=== PATIENT | male | born 1960 | race Caucasian/White ===

== ENCOUNTER 2016-06-14 20:13 | Emergency (ER) | payer OTHER, SELFPAY ==
[2016-06-14] MEDS ORDERED: SODIUM CHLORIDE 0.9% 1,000 ML IV STA ×2 (20:17→20:26)
[2016-06-14 20:18] VITALS: TEMP 101.5
--- NOTE | 2016-06-14 20:21 | ED ---
Seizure HPI - General Chief Complaint: Seizure Stated Complaint: SEIZURE Time Seen by Provider: 06/14/16 20:13 Source: patient, EMS, RN notes reviewed Mode of arrival: EMS Limitations: no limitations - History of Present Illness Initial Comments: This is a 56-year-old male with a history of alcoholism who drinks urinating amounts of alcohol daily and also states he has not drank suggested a who is reportedly had a seizure tonight for the first time. He states he remembers passing out but he does not recall any activity he was reported have a 7 minute episode of tonic-clonic activity on a carpeted floor. EMS was called he was confused she was incontinent of urine. He was repetitive with questioning. He is becoming more responsive as time goes on however. He states he's never gone through DTs before he thought was 2016 at this time. He wasn't sure with a present was at this time. He denies any street drug use hour. He has no other medical problems he states MD Complaint: seizure - Related Data Home Medications Medication Instructions Recorded Confirmed No Known Home Medications [No 06/14/16 06/14/16 Known Home Medications] Allergies Allergy/AdvReac Type Severity Reaction Status Date / Time No Known Allergies Allergy Verified 06/14/16 20:31 Review of Systems ROS Statement: Those systems with pertinent positive or pertinent negative responses have been documented in the HPI. ROS Other: All systems not noted in ROS Statement are negative. Past Medical History Past Medical History: No Reported History History of Any Multi-Drug Resistant Organisms: None Reported Additional Past Surgical History / Comment(s): Right leg fracture repair Past Psychological History: No Psychological Hx Reported Smoking Status: Current every day smoker Past Alcohol Use History: Heavy Past Drug Use History: Marijuana General Exam - General Exam Comments Initial Comments: Is a well-developed well-nourished awake alert oriented 2 male he does demonstrate a Coral Coma Scale of 14 at this time Limitations: no limitations General appearance: alert, in no apparent distress Head exam: Present: normocephalic, normal inspection, other (Of her facial abrasions seen over the right lateral orbit and face no step-off no crepitation no open wounds.) Eye exam: Present: normal appearance, PERRL, EOMI. Absent: scleral icterus, conjunctival injection, periorbital swelling ENT exam: Present: mucous membranes dry Neck exam: Present: normal inspection. Absent: tenderness, meningismus, lymphadenopathy Respiratory exam: Present: normal lung sounds bilaterally. Absent: respiratory distress, wheezes, rales, rhonchi, stridor Cardiovascular Exam: Present: normal rhythm, tachycardia, normal heart sounds. Absent: systolic murmur, diastolic murmur, rubs, gallop, clicks GI/Abdominal exam: Present: soft, normal bowel sounds. Absent: distended, tenderness, guarding, rebound, rigid Extremities exam: Present: normal inspection, full ROM, normal capillary refill. Absent: tenderness, pedal edema, joint swelling, calf tenderness Back exam: Present: normal inspection Neurological exam: Present: alert, oriented X3, CN II-XII intact Psychiatric exam: Present: normal affect, normal mood Skin exam: Present: warm, dry, intact, normal color. Absent: rash Course Vital Signs 06/14/16 06/14/16 06/14/16 20:14 20:17 22:06 Temperature 101.5 F H Pulse Rate 120 H 104 H 117 H Respiratory 18 18 16 Rate Blood Pressure 199/102 165/92 171/87 O2 Sat by Pulse 97 100 96 Oximetry Medical Decision Making - Medical Decision Making Reevaluation the patient reveals that he is awake alert oriented 3 I did a long discussion with him regarding the findings. Patient states feeling drinks 4 beers a day he's going to quit he states I did suggest she stay in hospital tonight he does not want stay in hospital he agrees except his own ability to care for himself and recent possibility for care. He will follow-up with general medicine and return when necessary I did caution him about the possibility had having a seizure and recurrence. - Lab Data Result diagrams: 06/14/16 20:20 06/14/16 20:20 Lab Results 06/14/16 06/14/16 06/14/16 Range/Units 20:20 20:20 20:20 WBC 9.7 (3.8-10.6) k/uL RBC 4.46 (4.30-5.90) m/uL Hgb 12.0 L (13.0-17.5) gm/dL Hct 36.7 L (39.0-53.0) % MCV 82.3 (80.0-100.0) fL MCH 27.0 (25.0-35.0) pg MCHC 32.8 (31.0-37.0) g/dL RDW 16.1 H (11.5-15.5) % Plt Count 234 (150-450) k/uL Neutrophils % 61 % Lymphocytes % 25 % Monocytes % 9 % Eosinophils % 0 % Basophils % 1 % Neutrophils # 5.9 (1.3-7.7) k/uL Lymphocytes # 2.4 (1.0-4.8) k/uL Monocytes # 0.8 (0-1.0) k/uL Eosinophils # 0.0 (0-0.7) k/uL Basophils # 0.1 (0-0.2) k/uL Anisocytosis Slight Sodium 133 L (137-145) mmol/L Potassium 3.9 (3.5-5.1) mmol/L Chloride 96 L (98-107) mmol/L Carbon Dioxide 21 L (22-30) mmol/L Anion Gap 16 mmol/L BUN 8 L (9-20) mg/dL Creatinine 0.67 (0.66-1.25) mg/dL Est GFR (MDRD) Af Amer >60 (>60 ml/min/1.73 sqM) Est GFR (MDRD) Non-Af >60 (>60 ml/min/1.73 sqM) Glucose 166 H (74-99) mg/dL Calcium 9.2 (8.4-10.2) mg/dL Magnesium 1.8 (1.6-2.3) mg/dL Total Bilirubin 0.5 (0.2-1.3) mg/dL AST 54 (17-59) U/L ALT 50 (21-72) U/L Alkaline Phosphatase 92 (38-126) U/L Total Creatine Kinase 125 (55-170) U/L CK-MB (CK-2) 0.6 (0.0-2.4) ng/mL CK-MB (CK-2) Rel Index 0.5 Total Protein 8.1 (6.3-8.2) g/dL Albumin 4.3 (3.5-5.0) g/dL Amylase 180 H (30-110) U/L Lipase 190 (23-300) U/L Urine Color Urine Appearance (Clear) Urine pH (5.0-8.0) Ur Specific [place] (1.001-1.035) Urine Protein (Negative) Urine Glucose (UA) (Negative) Urine Ketones (Negative) Urine Blood (Negative) Urine Nitrite (Negative) Urine Bilirubin (Negative) Urine Urobilinogen (<2.0) mg/dL Ur Leukocyte Esterase (Negative) Urine RBC (0-5) /hpf Urine WBC (0-5) /hpf Amorphous Sediment (None) /hpf Salicylates <1.0 mg/dL Urine Opiates Screen (NotDetected) Ur Oxycodone Screen (NotDetected) Urine Methadone Screen (NotDetected) Ur Propoxyphene Screen (NotDetected) Acetaminophen <10.0 ug/mL Ur Barbiturates Screen (NotDetected) U Tricyclic Antidepress (NotDetected) Ur Phencyclidine Scrn (NotDetected) Ur Amphetamines Screen (NotDetected) U Methamphetamines Scrn (NotDetected) U Benzodiazepines Scrn (NotDetected) Urine Cocaine Screen (NotDetected) U Marijuana (THC) Screen (NotDetected) Serum Alcohol <10 mg/dL 06/14/16 Range/Units 20:31 WBC (3.8-10.6) k/uL RBC (4.30-5.90) m/uL Hgb (13.0-17.5) gm/dL Hct (39.0-53.0) % MCV (80.0-100.0) fL MCH (25.0-35.0) pg MCHC (31.0-37.0) g/dL RDW (11.5-15.5) % Plt Count (150-450) k/uL Neutrophils % % Lymphocytes % % Monocytes % % Eosinophils % % Basophils % % Neutrophils # (1.3-7.7) k/uL Lymphocytes # (1.0-4.8) k/uL Monocytes # (0-1.0) k/uL Eosinophils # (0-0.7) k/uL Basophils # (0-0.2) k/uL Anisocytosis Sodium (137-145) mmol/L Potassium (3.5-5.1) mmol/L Chloride (98-107) mmol/L Carbon Dioxide (22-30) mmol/L Anion Gap mmol/L BUN (9-20) mg/dL Creatinine (0.66-1.25) mg/dL Est GFR (MDRD) Af Amer (>60 ml/min/1.73 sqM) Est GFR (MDRD) Non-Af (>60 ml/min/1.73 sqM) Glucose (74-99) mg/dL Calcium (8.4-10.2) mg/dL Magnesium (1.6-2.3) mg/dL Total Bilirubin (0.2-1.3) mg/dL AST (17-59) U/L ALT (21-72) U/L Alkaline Phosphatase (38-126) U/L Total Creatine Kinase (55-170) U/L CK-MB (CK-2) (0.0-2.4) ng/mL CK-MB (CK-2) Rel Index Total Protein (6.3-8.2) g/dL Albumin (3.5-5.0) g/dL Amylase (30-110) U/L Lipase (23-300) U/L Urine Color Light Yellow Urine Appearance Clear (Clear) Urine pH 5.0 (5.0-8.0) Ur Specific [place] 1.010 (1.001-1.035) Urine Protein 1+ H (Negative) Urine Glucose (UA) Trace H (Negative) Urine Ketones 1+ H (Negative) Urine Blood Small H (Negative) Urine Nitrite Negative (Negative) Urine Bilirubin Negative (Negative) Urine Urobilinogen <2.0 (<2.0) mg/dL Ur Leukocyte Esterase Negative (Negative) Urine RBC 2 (0-5) /hpf Urine WBC 3 (0-5) /hpf Amorphous Sediment Rare H (None) /hpf Salicylates mg/dL Urine Opiates Screen Not Detected (NotDetected) Ur Oxycodone Screen Not Detected (NotDetected) Urine Methadone Screen Not Detected (NotDetected) Ur Propoxyphene Screen Not Detected (NotDetected) Acetaminophen ug/mL Ur Barbiturates Screen Not Detected (NotDetected) U Tricyclic Antidepress Not Detected (NotDetected) Ur Phencyclidine Scrn Not Detected (NotDetected) Ur Amphetamines Screen Not Detected (NotDetected) U Methamphetamines Scrn Not Detected (NotDetected) U Benzodiazepines Scrn Not Detected (NotDetected) Urine Cocaine Screen Not Detected (NotDetected) U Marijuana (THC) Screen Detected H (NotDetected) Serum Alcohol mg/dL - EKG Data -: EKG Interpreted by Me EKG shows normal: sinus rhythm Rate: tachycardia (Sinus tachycardia with a rate of 118 CT interval 162 QRS duration 84 daily since QTC of 332/465 minimal voltage criteria for LVH no acute ST-T wave changes.) - Radiology Data Radiology results: report reviewed (I did review the imaging and reports. No acute findings), image reviewed Disposition Clinical Impression: New onset seizure Disposition: HOME SELF-CARE Condition: Good Instructions: New-Onset Seizure in Adults (ED) Referrals: None,Stated [Primary Care Provider] - 1-2 days
[2016-06-14 20:29] LABS: Anisocytosis Slight; Aty Lym Flag Slight; Basophils # (A) 0.1 k/uL (0-0.2); Basophils % (A) 1 %; CH 26.3; CHCM 32.1; Eosinophils % (A) 0 %; HCT 36.7 % (39.0-53.0); Luc # (Auto) 0.55; Luc % (Auto) 6; Lymphocytes # (A) 2.4 k/uL (1.0-4.8); Lymphocytes % (A) 25 %; MCHC 32.8 g/dL (31.0-37.0); MCV 82.3 fL (80.0-100.0); Monocytes # (A) 0.8 k/uL (0-1.0); Monocytes % (A) 9 %; Neutrophils # (A) 5.9 k/uL (1.3-7.7); Neutrophils % (A) 61 %; RBC 4.46 m/uL (4.30-5.90); RDW 16.1 % (11.5-15.5); WBC 9.7 k/uL (3.8-10.6); WBC (Perox) 9.67
[2016-06-14 20:40] LABS: ALT 50 U/L (21-72); AST 54 U/L (17-59); Acetaminophen <10.0 ug/mL; Alcohol <10 mg/dL; Alkaline Phosphatase 92 U/L (38-126); Amylase 180 U/L (30-110); Anion Gap 16 mmol/L; Blood Urea Nitrogen 8 mg/dL (9-20); Calcium 9.2 mg/dL (8.4-10.2); Carbon Dioxide 21 mmol/L (22-30); Chloride 96 mmol/L (98-107); Glucose 166 mg/dL (74-99); Magnesium 1.8 mg/dL (1.6-2.3); Non-African American GFR(MDRD) >60 (>60 ml/min/1.73 sqM); Potassium 3.9 mmol/L (3.5-5.1); Salicylate <1.0 mg/dL; Sodium 133 mmol/L (137-145); Total Bilirubin 0.5 mg/dL (0.2-1.3); Total Protein 8.1 g/dL (6.3-8.2)
[2016-06-14 20:51] LABS: Amorphous Sediment,Urine Rare /hpf; Appearance,Urine Clear (Clear); Bilirubin,Urine Negative (Negative); Glucose,Urine (UA) Trace (Negative); Ketones,Urine 1+ (Negative); Leukocyte Esterase,Urine Negative (Negative); Nitrite,Urine Negative (Negative); Particle Count 1391; Protein,Urine 1+ (Negative); RBC,Urine 2 /hpf (0-5); UA Billing (MACRO vs. MICRO) MICRO; Urobilinogen,Urine <2.0 mg/dL (<2.0); WBC,Urine 3 /hpf (0-5)
[2016-06-14 21:02] LABS: Creatine Kinase MB 0.6 ng/mL (0.0-2.4)
--- NOTE | 2016-06-14 21:09 | XR ---
EXAMINATION TYPE: XR chest 2V DATE OF EXAM: 06/14/2016 9:02 PM COMPARISON: 08/12/2011 HISTORY: Seizure TECHNIQUE: Frontal and lateral views of the chest are obtained. FINDINGS: Heart and mediastinum are normal. Lungs are clear. Costophrenic angles are clear. There ar e no hilar masses. There are chest leads. The bony thorax appears intact. IMPRESSION: No active cardiopulmonary disease. No change.
--- NOTE | 2016-06-14 21:11 | CT ---
EXAMINATION TYPE: CT brain wo con DATE OF EXAM: 06/14/2016 9:06 PM COMPARISON: 08/11/2011 HISTORY: new onset seizure CT DLP: 1108.4 mGycm Automated exposure control for dose reduction was used. FINDINGS: There is mucosal thickening in the maxillary sinuses. There is also mild mucosal thickening in the sp henoid and ethmoid sinuses. There is cerebral cortical atrophy. There is no mass effect nor midline shift. There is no sign of in tracranial hemorrhage. The calvarium is intact. IMPRESSION: Cerebral atrophy. Sinusitis. Sinusitis is worse than old CT scan. No acute intracranial abnormality.
[2016-06-14 22:07] VITALS: BP 171/87; PULSE 117; RESP 16
== END 2016-06-14 23:00 | disposition home or self-care (01) ==
LOC: EC 20:13
DX: R56.9 Unspecified convulsions (principal); S00.81XA Abrasion of other part of head, initial encounter; R00.0 Tachycardia, unspecified; R32 Unspecified urinary incontinence; R41.0 Disorientation, unspecified; F17.200 Nicotine dependence, unspecified, uncomplicated; X58.XXXA Exposure to other specified factors, initial encounter
CPT/HCPCS: 36415; 70450; 71020; 80053; 80306; 80320; 81001; 82150; 82550; 82553; 83520; 83690; 83735; 85025; 93005; 96360; 96361; 99285

== ENCOUNTER 2019-10-31 13:36 | Emergency (ER) | payer OTHER ==
[2019-10-31] MEDS ORDERED: SODIUM CHLORIDE 0.9% 1,000 ML IV STA (13:44)
[2019-10-31 13:50] VITALS: TEMP 98.1
--- NOTE | 2019-10-31 13:53 | ED ---
Seizure HPI - General Stated Complaint: Aliciaures Time Seen by Provider: 10/31/19 13:36 Source: patient, EMS, RN notes reviewed Mode of arrival: EMS - History of Present Illness Initial Comments: 59-year-old male with a history of alcoholism apparently he is a smoker but denies any history of any other medical issues including denying seizure disorder apparently is walking on his deck today when his girlfriend noted that he fell forward and has seizure for unknown amount time. Paramedics were summoned initially and he was somewhat combative and acting post -ictal with evidence of urinary incontinence upon their arrival they got there within 5 minutes of the event beginning from the 911 call. The time he arrives emergency department per paramedics she is awake alert oriented 4. The patient does deny any head neck or back pain or any other issues he states he drinks 3 or 4 beers a day. Mid to smoking cigarettes he denies any other drugs or alcohol. He denies feeling any palpitations prior to the event. MD Complaint: possible seizure - Related Data Previous Rx's Medication Instructions Recorded cloNIDine HCL [Catapres] 0.1 mg PO BID #30 tab 10/31/19 Allergies Allergy/AdvReac Type Severity Reaction Status Date / Time No Known Allergies Allergy Verified 10/31/19 14:29 Review of Systems ROS Statement: Those systems with pertinent positive or pertinent negative responses have been documented in the HPI. ROS Other: All systems not noted in ROS Statement are negative. Past Medical History Past Medical History: No Reported History History of Any Multi-Drug Resistant Organisms: None Reported Additional Past Surgical History / Comment(s): Right leg fracture repair Past Psychological History: No Psychological Hx Reported Past Alcohol Use History: Heavy Past Drug Use History: Marijuana General Exam - General Exam Comments Initial Comments: This is a well-developed well-nourished awake alert oriented times 3 male General appearance: alert, in no apparent distress Head exam: Present: atraumatic, normocephalic, normal inspection Eye exam: Present: normal appearance, PERRL, EOMI. Absent: scleral icterus, conjunctival injection, periorbital swelling ENT exam: Present: normal exam, mucous membranes moist Neck exam: Present: normal inspection, full ROM, other (No stridor JVD or bruits). Absent: tenderness, meningismus, lymphadenopathy Respiratory exam: Present: normal lung sounds bilaterally. Absent: respiratory distress, wheezes, rales, rhonchi, stridor Cardiovascular Exam: Present: regular rate, normal rhythm, normal heart sounds. Absent: systolic murmur, diastolic murmur, rubs, gallop, clicks GI/Abdominal exam: Present: soft, normal bowel sounds. Absent: distended, tenderness, guarding, rebound, rigid, bruit, pulsatile mass Extremities exam: Present: normal inspection, full ROM, normal capillary refill. Absent: tenderness, pedal edema, joint swelling, calf tenderness Back exam: Present: normal inspection Neurological exam: Present: alert, oriented X3, CN II-XII intact Psychiatric exam: Present: normal affect, normal mood Skin exam: Present: warm, dry, intact, normal color. Absent: rash Course Vital Signs 10/31/19 13:38 Temperature 98.1 F Pulse Rate 110 H Blood Pressure 199/121 O2 Sat by Pulse 97 Oximetry Medical Decision Making - Medical Decision Making Reevaluation the patient presently awake alert oriented 4 with no distress improvement in vital signs. The presentation is consistent with a seizure and postictal state by history is as resolved the patient will be discharged with follow-up with his doctor and return if needed he was counseled on drinking etc. blood pressure still somewhat elevated however he will be started on Catapres. He is a follow-up again with his doctor - Lab Data Result diagrams: 10/31/19 13:57 10/31/19 13:57 Lab Results 10/31/19 10/31/19 10/31/19 Range/Units 13:57 13:57 13:57 WBC 10.8 H (3.8-10.6) k/uL RBC 4.68 (4.30-5.90) m/uL Hgb 12.5 L (13.0-17.5) gm/dL Hct 40.9 (39.0-53.0) % MCV 87.5 (80.0-100.0) fL MCH 26.7 (25.0-35.0) pg MCHC 30.5 L (31.0-37.0) g/dL RDW 16.1 H (11.5-15.5) % Plt Count 300 (150-450) k/uL Neutrophils % 61 % Lymphocytes % 25 % Monocytes % 8 % Eosinophils % 1 % Basophils % 1 % Neutrophils # 6.6 (1.3-7.7) k/uL Lymphocytes # 2.6 (1.0-4.8) k/uL Monocytes # 0.9 (0-1.0) k/uL Eosinophils # 0.1 (0-0.7) k/uL Basophils # 0.1 (0-0.2) k/uL Anisocytosis Slight Sodium 134 L (137-145) mmol/L Potassium 4.6 (3.5-5.1) mmol/L Chloride 101 (98-107) mmol/L Carbon Dioxide 20 L (22-30) mmol/L Anion Gap 13 mmol/L BUN 11 (9-20) mg/dL Creatinine 0.70 (0.66-1.25) mg/dL Est GFR (CKD-EPI)AfAm >90 (>60 ml/min/1.73 sqM) Est GFR (CKD-EPI)NonAf >90 (>60 ml/min/1.73 sqM) Glucose 147 H (74-99) mg/dL Calcium 9.7 (8.4-10.2) mg/dL Magnesium 1.9 (1.6-2.3) mg/dL Total Bilirubin 0.6 (0.2-1.3) mg/dL AST 53 (17-59) U/L ALT 38 (4-49) U/L Alkaline Phosphatase 101 (38-126) U/L Creatine Kinase 81 (55-170) U/L Troponin I <0.012 (0.000-0.034) ng/mL Total Protein 7.8 (6.3-8.2) g/dL Albumin 4.4 (3.5-5.0) g/dL Lipase 242 (23-300) U/L TSH 6.070 H (0.465-4.680) mIU/L Urine Opiates Screen (NotDetected) Ur Oxycodone Screen (NotDetected) Urine Methadone Screen (NotDetected) Ur Propoxyphene Screen (NotDetected) Ur Barbiturates Screen (NotDetected) U Tricyclic Antidepress (NotDetected) Ur Phencyclidine Scrn (NotDetected) Ur Amphetamines Screen (NotDetected) U Methamphetamines Scrn (NotDetected) U Benzodiazepines Scrn (NotDetected) Urine Cocaine Screen (NotDetected) U Marijuana (THC) Screen (NotDetected) Serum Alcohol <10 mg/dL 10/31/19 Range/Units 13:59 WBC (3.8-10.6) k/uL RBC (4.30-5.90) m/uL Hgb (13.0-17.5) gm/dL Hct (39.0-53.0) % MCV (80.0-100.0) fL MCH (25.0-35.0) pg MCHC (31.0-37.0) g/dL RDW (11.5-15.5) % Plt Count (150-450) k/uL Neutrophils % % Lymphocytes % % Monocytes % % Eosinophils % % Basophils % % Neutrophils # (1.3-7.7) k/uL Lymphocytes # (1.0-4.8) k/uL Monocytes # (0-1.0) k/uL Eosinophils # (0-0.7) k/uL Basophils # (0-0.2) k/uL Anisocytosis Sodium (137-145) mmol/L Potassium (3.5-5.1) mmol/L Chloride (98-107) mmol/L Carbon Dioxide (22-30) mmol/L Anion Gap mmol/L BUN (9-20) mg/dL Creatinine (0.66-1.25) mg/dL Est GFR (CKD-EPI)AfAm (>60 ml/min/1.73 sqM) Est GFR (CKD-EPI)NonAf (>60 ml/min/1.73 sqM) Glucose (74-99) mg/dL Calcium (8.4-10.2) mg/dL Magnesium (1.6-2.3) mg/dL Total Bilirubin (0.2-1.3) mg/dL AST (17-59) U/L ALT (4-49) U/L Alkaline Phosphatase (38-126) U/L Creatine Kinase (55-170) U/L Troponin I (0.000-0.034) ng/mL Total Protein (6.3-8.2) g/dL Albumin (3.5-5.0) g/dL Lipase (23-300) U/L TSH (0.465-4.680) mIU/L Urine Opiates Screen Not Detected (NotDetected) Ur Oxycodone Screen Not Detected (NotDetected) Urine Methadone Screen Not Detected (NotDetected) Ur Propoxyphene Screen Not Detected (NotDetected) Ur Barbiturates Screen Not Detected (NotDetected) U Tricyclic Antidepress Not Detected (NotDetected) Ur Phencyclidine Scrn Not Detected (NotDetected) Ur Amphetamines Screen Not Detected (NotDetected) U Methamphetamines Scrn Not Detected (NotDetected) U Benzodiazepines Scrn Not Detected (NotDetected) Urine Cocaine Screen Not Detected (NotDetected) U Marijuana (THC) Screen Detected H (NotDetected) Serum Alcohol mg/dL - EKG Data -: EKG Interpreted by Me EKG Comments: EKG shows normal sinus rhythm a 99. Interval 154 QRS 122 daily since QTC 386/495 evidence a right bundle-branch block pattern - Radiology Data Radiology results: report reviewed (I did review the imaging and report no acute findings.), image reviewed Disposition Clinical Impression: New onset seizure, Hypertension, Dehydration Disposition: HOME SELF-CARE Condition: Good Instructions (If sedation given, give patient instructions): New-Onset Seizure in Adults (ED), Hypertension in the Older Adult (ED) Additional Instructions: Medication prescription sent to your preferred pharmacy Prescriptions: cloNIDine HCL [Catapres] 0.1 mg PO BID #30 tab Is patient prescribed a controlled substance at d/c from ED?: No Referrals: None,Stated [Primary Care Provider] - 1-2 days
[2019-10-31 14:07] LABS: Anisocytosis Slight; Basophils # (A) 0.1 k/uL (0-0.2); Basophils % (A) 1 %; Eosinophils # (A) 0.1 k/uL (0-0.7); Eosinophils % (A) 1 %; HCT 40.9 % (39.0-53.0); HGB 12.5 gm/dL (13.0-17.5); Lymphocytes # (A) 2.6 k/uL (1.0-4.8); Lymphocytes % (A) 25 %; MCH 26.7 pg (25.0-35.0); MCHC 30.5 g/dL (31.0-37.0); MCV 87.5 fL (80.0-100.0); Mean Platelet Volume 7.6; Monocytes # (A) 0.9 k/uL (0-1.0); Monocytes % (A) 8 %; Neutrophils # (A) 6.6 k/uL (1.3-7.7); Neutrophils % (A) 61 %; Platelet Count 300 k/uL (150-450); RBC 4.68 m/uL (4.30-5.90); RDW 16.1 % (11.5-15.5); WBC 10.8 k/uL (3.8-10.6)
[2019-10-31 14:23] LABS: ALT 38 U/L (4-49); AST 53 U/L (17-59); African American GFR (CKD) >90 (>60 ml/min/1.73 sqM); Albumin 4.4 g/dL (3.5-5.0); Alcohol <10 mg/dL; Alkaline Phosphatase 101 U/L (38-126); Anion Gap 13 mmol/L; Blood Urea Nitrogen 11 mg/dL (9-20); Calcium 9.7 mg/dL (8.4-10.2); Carbon Dioxide 20 mmol/L (22-30); Chloride 101 mmol/L (98-107); Creatine Kinase 81 U/L (55-170); Glucose 147 mg/dL (74-99); Lipase 242 U/L (23-300); Magnesium 1.9 mg/dL (1.6-2.3); Non-African American GFR(CKD) >90 (>60 ml/min/1.73 sqM); Potassium 4.6 mmol/L (3.5-5.1); Sodium 134 mmol/L (137-145); Total Bilirubin 0.6 mg/dL (0.2-1.3); Total Protein 7.8 g/dL (6.3-8.2)
--- NOTE | 2019-10-31 14:25 | CT ---
EXAMINATION TYPE: CT brain cspine wo con DATE OF EXAM: 10/31/2019 COMPARISON: CT brain 06/14/2016. CT cervical spine 08/11/2011. HISTORY: Seizure CT DLP: 1263.8 mGycm Automated exposure control for dose reduction was used. TECHNIQUE: CT scan of the head and cervical spine are performed without contrast. FINDINGS: There is no acute intracranial hemorrhage, mass effect, or midline shift identified. Vol ume loss. The ventricles and sulci are within normal limits in size. No extra-axial fluid collections . The globes are grossly symmetric. No calvarial fracture. Mastoid air cells are clear. The mucosal t hickening and chronic sinusitis changes of the left maxillary sinus. Cervical spine is visualized in its entirety from C1 through upper thoracic levels and demonstrates s atisfactory alignment without evidence of acute fracture or dislocation. There is increased cervical lordosis. Prevertebral soft tissue appears within normal limits. The C1-C2 articulation is unremark able. IMPRESSION: 1. There is no acute fracture or dislocation evident in the cervical spine. 2. No acute intracranial hemorrhage, mass effect, or midline shift is seen. 3. Mucosal thickening and chronic sinusitis changes of the left maxillary sinus.
[2019-10-31 14:28] LABS: Amphetamine Screen,Urine Not Detected (NotDetected); Barbiturate Screen,Urine Not Detected (NotDetected); Benzodiazepines Screen,Urine Not Detected (NotDetected); Cocaine Screen,Urine Not Detected (NotDetected); Methadone Screen, Urine Not Detected (NotDetected); Opiate Screen,Urine Not Detected (NotDetected); Oxycodone Screen, Urine Not Detected (NotDetected); Phencyclidine Screen,Urine Not Detected (NotDetected); Tricyclic Antidepressant,Urine Not Detected (NotDetected); Urn Cannabinoid Scrn Detected (NotDetected)
[2019-10-31 15:03] VITALS: PULSE 84
[2019-10-31] MEDS ORDERED: cloNIDine HCL 0.1 MG TAB PO STA (15:03)
--- NOTE | 2019-10-31 15:09 | ED ---
Medical Decision Making - Lab Data Result diagrams: 10/31/19 13:57 10/31/19 13:57 Lab Results 10/31/19 10/31/19 10/31/19 Range/Units 13:57 13:57 13:57 WBC 10.8 H (3.8-10.6) k/uL RBC 4.68 (4.30-5.90) m/uL Hgb 12.5 L (13.0-17.5) gm/dL Hct 40.9 (39.0-53.0) % MCV 87.5 (80.0-100.0) fL MCH 26.7 (25.0-35.0) pg MCHC 30.5 L (31.0-37.0) g/dL RDW 16.1 H (11.5-15.5) % Plt Count 300 (150-450) k/uL Neutrophils % 61 % Lymphocytes % 25 % Monocytes % 8 % Eosinophils % 1 % Basophils % 1 % Neutrophils # 6.6 (1.3-7.7) k/uL Lymphocytes # 2.6 (1.0-4.8) k/uL Monocytes # 0.9 (0-1.0) k/uL Eosinophils # 0.1 (0-0.7) k/uL Basophils # 0.1 (0-0.2) k/uL Anisocytosis Slight Sodium 134 L (137-145) mmol/L Potassium 4.6 (3.5-5.1) mmol/L Chloride 101 (98-107) mmol/L Carbon Dioxide 20 L (22-30) mmol/L Anion Gap 13 mmol/L BUN 11 (9-20) mg/dL Creatinine 0.70 (0.66-1.25) mg/dL Est GFR (CKD-EPI)AfAm >90 (>60 ml/min/1.73 sqM) Est GFR (CKD-EPI)NonAf >90 (>60 ml/min/1.73 sqM) Glucose 147 H (74-99) mg/dL Calcium 9.7 (8.4-10.2) mg/dL Magnesium 1.9 (1.6-2.3) mg/dL Total Bilirubin 0.6 (0.2-1.3) mg/dL AST 53 (17-59) U/L ALT 38 (4-49) U/L Alkaline Phosphatase 101 (38-126) U/L Creatine Kinase 81 (55-170) U/L Troponin I <0.012 (0.000-0.034) ng/mL Total Protein 7.8 (6.3-8.2) g/dL Albumin 4.4 (3.5-5.0) g/dL Lipase 242 (23-300) U/L TSH 6.070 H (0.465-4.680) mIU/L Urine Opiates Screen (NotDetected) Ur Oxycodone Screen (NotDetected) Urine Methadone Screen (NotDetected) Ur Propoxyphene Screen (NotDetected) Ur Barbiturates Screen (NotDetected) U Tricyclic Antidepress (NotDetected) Ur Phencyclidine Scrn (NotDetected) Ur Amphetamines Screen (NotDetected) U Methamphetamines Scrn (NotDetected) U Benzodiazepines Scrn (NotDetected) Urine Cocaine Screen (NotDetected) U Marijuana (THC) Screen (NotDetected) Serum Alcohol <10 mg/dL 10/31/19 Range/Units 13:59 WBC (3.8-10.6) k/uL RBC (4.30-5.90) m/uL Hgb (13.0-17.5) gm/dL Hct (39.0-53.0) % MCV (80.0-100.0) fL MCH (25.0-35.0) pg MCHC (31.0-37.0) g/dL RDW (11.5-15.5) % Plt Count (150-450) k/uL Neutrophils % % Lymphocytes % % Monocytes % % Eosinophils % % Basophils % % Neutrophils # (1.3-7.7) k/uL Lymphocytes # (1.0-4.8) k/uL Monocytes # (0-1.0) k/uL Eosinophils # (0-0.7) k/uL Basophils # (0-0.2) k/uL Anisocytosis Sodium (137-145) mmol/L Potassium (3.5-5.1) mmol/L Chloride (98-107) mmol/L Carbon Dioxide (22-30) mmol/L Anion Gap mmol/L BUN (9-20) mg/dL Creatinine (0.66-1.25) mg/dL Est GFR (CKD-EPI)AfAm (>60 ml/min/1.73 sqM) Est GFR (CKD-EPI)NonAf (>60 ml/min/1.73 sqM) Glucose (74-99) mg/dL Calcium (8.4-10.2) mg/dL Magnesium (1.6-2.3) mg/dL Total Bilirubin (0.2-1.3) mg/dL AST (17-59) U/L ALT (4-49) U/L Alkaline Phosphatase (38-126) U/L Creatine Kinase (55-170) U/L Troponin I (0.000-0.034) ng/mL Total Protein (6.3-8.2) g/dL Albumin (3.5-5.0) g/dL Lipase (23-300) U/L TSH (0.465-4.680) mIU/L Urine Opiates Screen Not Detected (NotDetected) Ur Oxycodone Screen Not Detected (NotDetected) Urine Methadone Screen Not Detected (NotDetected) Ur Propoxyphene Screen Not Detected (NotDetected) Ur Barbiturates Screen Not Detected (NotDetected) U Tricyclic Antidepress Not Detected (NotDetected) Ur Phencyclidine Scrn Not Detected (NotDetected) Ur Amphetamines Screen Not Detected (NotDetected) U Methamphetamines Scrn Not Detected (NotDetected) U Benzodiazepines Scrn Not Detected (NotDetected) Urine Cocaine Screen Not Detected (NotDetected) U Marijuana (THC) Screen Detected H (NotDetected) Serum Alcohol mg/dL Disposition Clinical Impression: New onset seizure, Hypertension, Dehydration Disposition: HOME SELF-CARE Condition: Good Instructions (If sedation given, give patient instructions): New-Onset Seizure in Adults (ED), Hypertension in the Older Adult (ED) Additional Instructions: Medication prescription sent to your preferred pharmacy Prescriptions: cloNIDine HCL [Catapres] 0.1 mg PO BID #30 tab Is patient prescribed a controlled substance at d/c from ED?: No Referrals: None,Stated [Primary Care Provider] - 1-2 days Ever Lucero MD [REFERRING] - 1-2 days
[2019-10-31 15:22] VITALS: BP 199/112; RESP 18
== END 2019-10-31 15:15 | disposition home or self-care (01) ==
LOC: EC 13:36
DX: R56.9 Unspecified convulsions (principal); I10 Essential (primary) hypertension; E86.0 Dehydration; F17.210 Nicotine dependence, cigarettes, uncomplicated
CPT/HCPCS: 36415; 93005; 84439; 80053; 84443; 82550; 83690; 83735; 84484; 85025; 80306; 72125; 70450; 99285; G0480; 80320

== ENCOUNTER → 2020-03-12 | Outpatient (CLI) | payer OTHER ==
--- NOTE | 2020-03-12 12:05 | US ---
EXAMINATION TYPE: US abdomen comp/pelvis limited DATE OF EXAM: 03/12/2020 COMPARISON: NONE CLINICAL HISTORY: 59-year-old male R74.8 Elevated liver enzymes. Hypertension, hyponatremia TECHNIQUE: Multiple sonographic images of the abdomen and bladder are obtained. EXAM MEASUREMENTS: Liver Length: 14.1 cm Gallbladder Wall: 2 mm CBD: 4 mm Spleen: 8.2 cm Right Kidney: 10.8 cm. Left Kidney: 11.2 cm Pancreas: Obscured by bowel gas Liver: Slightly echogenic and attenuating. No focal lesion seen. Gallbladder: no evidence of stones CBD: appears wnl Spleen: appears wnl Right Kidney: no evidence of hydronephrosis Left Kidney: no evidence of hydronephrosis Upper IVC: appears wnl Abd Aorta: limited evaluation due to overlying bowel content Bladder: not partial distention limits evaluation. There is mild wall thickening up to 5 mm. Bilateral Jets Seen no IMPRESSION: 1. Mild hepatic steatosis. 2. No gallstones or biliary ductal dilatation. 3. Partial distention of the bladder limits evaluation. Mild circumferential wall thickening could be secondary to incomplete distention, chronic bladder wall hypertrophy, or cystitis. Clinically correl ate.
== END | disposition home or self-care (01) ==
LOC: RADUSWWP 09:15
PROVIDERS: ATTEND Family Medicine
DX: K76.0 Fatty (change of) liver, not elsewhere classified (principal); N32.89 Other specified disorders of bladder; I10 Essential (primary) hypertension
CPT/HCPCS: 76700; 76857

== ENCOUNTER → 2020-04-01 | Outpatient (CLI) | payer OTHER ==
--- NOTE | 2020-04-01 16:01 | MR ---
EXAMINATION TYPE: MR brain wo/w con DATE OF EXAM: 04/01/2020 COMPARISON: CT brain October 31, 2019 HISTORY: Seizure TECHNIQUE: Multiplanar, multisequence images of the brain and brainstem is performed without and with IV contras t, utilizing 7 mL intravenous Gadavist . FINDINGS: Diffusion weighted images demonstrate no evidence of a recent infarct or other diffusion ab normality. There is mild to moderate diffuse ventricular and sulcal prominence. Scattered mild areas of T2 hyperintensity throughout the periventricular and deep white matter. T2 coronal weighted image s show hippocampal gyri to appear symmetric and felt within normal limits. Midline structures demonstrate normal morphology. The craniocervical junction appears within normal limits. Post contrast images demonstrate no abnormal enhancement. The dural venous sinuses appear pa tent. Moderate to severe mucosal thickening in the left maxillary sinus with patchy fluid redemonstra nathan. Mild mucosal thickening right maxillary sinus redemonstrated with some dependent fluid on curren t study. Globes are intact bilaterally. Mild mucosal thickening right frontal sinus. IMPRESSION: 1. [id number] diffuse cerebral atrophy and mild chronic small vessel ischemic change. No suspic ious enhancing masses. 2. Acute on chronic paranasal sinus disease as detailed above.
== END | disposition home or self-care (01) ==
LOC: RADMRIMAIN 14:37
PROVIDERS: ATTEND Nurse Practitioner Family
DX: I67.82 Cerebral ischemia (principal); G31.1 Senile degeneration of brain, not elsewhere classified
CPT/HCPCS: 70553; A9585

== ENCOUNTER → 2020-12-10 | Outpatient (CLI) | payer OTHER ==
--- NOTE | 2020-12-15 11:56 | P.ARTDOP ---
Arterial Doppler LOWER EXTREMITY ARTERIAL DOPPLER: DATE OF SERVICE: 12/10/2020 Reason for study: Skin discoloration. Doppler waveforms: Multiphasic bilaterally throughout with blunting at the left foot. Pulse volume recording: []. Pressure gradients: Only at the left foot. Ankle-brachial indices: Greater than 1 on the right and 0.97 on the left. Toe brachial indices: 0.68 on the right, 0.28 on the left Impression: The right side is normal. The decrease waveforms and pressure on the left foot is of uncertain significance. Unilateral distal disease would be unlikely. Vasospastic phenomenon is possible. Clinical correlation recommended..
== END | disposition home or self-care (01) ==
LOC: RADUSWWP 09:36
PROVIDERS: ATTEND Family Medicine
DX: L81.9 Disorder of pigmentation, unspecified (principal)
CPT/HCPCS: 93923

== ENCOUNTER 2021-03-19 22:59 | Inpatient (IN) | payer OTHER ==
[2021-03-20 01:15] LABS: Basophils # (A) 0.2 k/uL (0-0.2); Basophils % (A) 2 %; Eosinophils # (A) 0.3 k/uL (0-0.7); Eosinophils % (A) 3 %; HCT 43.3 % (39.0-53.0); HGB 13.6 gm/dL (13.0-17.5); Lymphocytes # (A) 3.8 k/uL (1.0-4.8); Lymphocytes % (A) 37 %; MCH 30.4 pg (25.0-35.0); MCHC 31.3 g/dL (31.0-37.0); Mean Platelet Volume 7.3; Monocytes # (A) 0.8 k/uL (0-1.0); Monocytes % (A) 8 %; Neutrophils # (A) 4.7 k/uL (1.3-7.7); Neutrophils % (A) 46 %; Platelet Count 390 k/uL (150-450); RBC 4.47 m/uL (4.30-5.90); RDW 13.2 % (11.5-15.5); WBC 10.1 k/uL (3.8-10.6)
[2021-03-20 01:26] LABS: African American GFR (CKD) >90 (>60 ml/min/1.73 sqM); Anion Gap 11 mmol/L; Blood Urea Nitrogen 4 mg/dL (9-20); C Reactive Protein <0.5 mg/dL (<1.0); Calcium 8.8 mg/dL (8.4-10.2); Carbon Dioxide 20 mmol/L (22-30); Chloride 92 mmol/L (98-107); Glucose 84 mg/dL (74-99); Non-African American GFR(CKD) >90 (>60 ml/min/1.73 sqM); Sodium 123 mmol/L (137-145)
[2021-03-20 01:51] LABS: Potassium 5.2 mmol/L (3.5-5.1)
[2021-03-20] MEDS ORDERED: ACETAMINOPHEN TAB 325 MG TAB PO PRN (05:08)
[2021-03-20] MEDS ORDERED: NALOXONE 0.4 MG/ML 1 ML VIAL IV PRN (05:08)
[2021-03-20] MEDS ORDERED: SODIUM CHLORIDE 0.9% 1,000 ML IV ONE (05:09)
[2021-03-20] MEDS ORDERED: FLUCONAZOLE 100 MG TAB PO ONE (05:30)
[2021-03-20] MEDS: NAFCILLIN 2 GM in DEXTROSE 5% IN WATER 100 ML IVPB SCH ×4 (05:46→14:26)
[2021-03-20] MEDS: SODIUM CHLORIDE 0.9% 1,000 ML IV SCH ×3 (06:55→20:57)
[2021-03-20] MEDS: ENOXAPARIN 40 MG/0.4 ML SYRINGE SQ SCH (10:30)
[2021-03-20] MEDS: FAMOTIDINE 20 MG TAB PO SCH ×2 (10:31→20:56)
[2021-03-20] MEDS ORDERED: LORazepam 2 MG/ML INJ IV PRN ×2 (11:23)
[2021-03-20] MEDS ORDERED: THIAMINE 100 MG/ML 2 ML VIAL IM STA (11:23)
[2021-03-20] MEDS ORDERED: ALBUTEROL HFA INHALER INHALATION PRN (11:26)
--- NOTE | 2021-03-20 13:05 | P.HPIM ---
History of Present Illness Patient 60-year-old male came in because of redness and infection of the right foot. Patient has a right foot finger web infection along with cellulitis. Patient denied any history of MRSA in the past patient is presently on nafcillin probably need to be switched to vancomycin and on ceftezolin. Patient the does drink alcohol on a daily basis cc about 3 beers a day probably drinks more than that. Patient is hyponatremic. Patient has all call withdrawal seizures in the past to smoke about a pack of steroids per day. Patient doesn't have any fever chills doesn't have any leukocytosis at this time REVIEW OF SYSTEMS: CONSTITUTIONAL: No fever, no malaise, no fatigue. HEENT: No recent visual problems or hearing problems. Denied any sore throat. CARDIOVASCULAR: No chest pain, orthopnea, PND, no palpitations, no syncope. PULMONARY: No shortness of breath, no cough, no hemoptysis. GASTROINTESTINAL: No diarrhea, no nausea, no vomiting, no abdominal pain. NEUROLOGICAL: No headaches, no weakness, no numbness. HEMATOLOGICAL: Denies any bleeding or petechiae. GENITOURINARY: Denies any burning micturition, frequency, or urgency. MUSCULOSKELETAL/RHEUMATOLOGICAL: Denies any joint pain, swelling, or any muscle pain. ENDOCRINE: Denies any polyuria or polydipsia. The rest of the 14-point review of systems is negative. PHYSICAL EXAMINATION: GENERAL: The patient is alert and oriented x3, not in any acute distress. Well developed, well nourished. HEENT: Pupils are round and equally reacting to light. EOMI. No scleral icterus. No conjunctival pallor. Normocephalic, atraumatic. No pharyngeal erythema. No thyromegaly. CARDIOVASCULAR: S1 and S2 present. No murmurs, rubs, or gallops. PULMONARY: Chest is clear to auscultation, no wheezing or crackles. ABDOMEN: Soft, nontender, nondistended, normoactive bowel sounds. No palpable organomegaly. MUSCULOSKELETAL: No joint swelling or deformity. EXTREMITIES: No cyanosis, clubbing, or pedal edema. NEUROLOGICAL: Gross neurological examination did not reveal any focal deficits. SKIN: Patient has cellulitis of the right foot with significant skin breakdown the plantar as well as dorsal aspect in the distal foot, patient has skin breakdown in the right foot webspaces Assessment and plan -Cellulitis of the right foot, wound cultures will be obtained, infectious disease will be consulted continue with the present antibiotics. Next -Hyponatremia: Beer potomania, patient will be started on IV fluids -All call abuse: Counseling was provided -Alcohol withdrawal: Patient will be started on Ativan CIWA protocol liver enzymes will be obtained. -Nicotine abuse: Counseling was provided DVT prophylaxis: Lovenox Past Medical History Past Medical History: Seizure Disorder History of Any Multi-Drug Resistant Organisms: None Reported Additional Past Surgical History / Comment(s): Right leg fracture repair Smoking Status: Current every day smoker Medications and Allergies Home Medications Medication Instructions Recorded Confirmed Type Albuterol Sulfate [Proair Hfa] 2 puff INHALATION RT-QID PRN 03/20/21 03/20/21 History Metoprolol Tartrate [Lopressor] 100 mg PO BID 03/20/21 03/20/21 History cloNIDine HCL 0.1 mg PO HS 03/20/21 03/20/21 History cloNIDine HCL [Catapres] 0.2 mg PO DAILY 03/20/21 03/20/21 History lisinopriL [Zestril] 5 mg PO DAILY 03/20/21 03/20/21 History Allergies Allergy/AdvReac Type Severity Reaction Status Date / Time No Known Allergies Allergy Verified 03/20/21 09:29 Physical Exam Vitals: Vital Signs Temp Pulse Pulse Resp BP BP Pulse Ox 03/20/21 10:31 98.2 F 79 18 136/82 96 03/20/21 08:00 98.2 F 79 18 136/82 96 03/20/21 06:30 72 18 148/90 97 03/20/21 05:06 70 16 139/72 95 03/20/21 02:02 88 16 145/68 93 L 03/20/21 01:01 80 20 139/52 94 L 03/19/21 23:46 74 03/19/21 23:09 98 F 69 17 134/62 97 Intake and Output 03/19/21 03/20/21 03/20/21 22:59 06:59 14:59 Other: Voiding Method Toilet # Voids 2 Weight 66.678 kg 64.9 kg Results CBC & Chem 7: 03/20/21 00:47 03/20/21 00:47 Labs: Abnormal Lab Results - Last 24 Hours (Table) 03/20/21 03/20/21 Range/Units 00:47 00:47 Sodium 123 L (137-145) mmol/L Potassium 5.2 H (3.5-5.1) mmol/L Chloride 92 L (98-107) mmol/L Carbon Dioxide 20 L (22-30) mmol/L BUN 4 L (9-20) mg/dL Creatinine 0.49 L (0.66-1.25) mg/dL Osmolality 303 H (280-301) mosm/kg Thrombosis Risk Factor Assmnt - Choose All That Apply Each Factor Represents 1 point: Age 41-60 years, Swollen legs (current) Thrombosis Risk Factor Assessment Total Risk Factor Score: 2 Thrombosis Risk Factor Assessment Level: Low Risk
[2021-03-20] MEDS: THIAMINE 100 MG TAB PO SCH (15:24)
[2021-03-20] MEDS: LORazepam 2 MG/ML INJ IV PRN (15:24)
[2021-03-20] MEDS: NYSTATIN 100,000 UNIT/GM POWD 15 GM TOPICAL SCH (20:56)
--- NOTE | 2021-03-20 22:39 | P.CONS ---
History of Present Illness - Reason for Consult Consult date: 03/20/21 right foot cellulitis Requesting physician: Navid Barry - Chief Complaint right foot pain and redness x days - History of Present Illness History of Present Illness : Patient is 60-year-old male presenting to the ER for evaluation of the right foot pain swelling and redness in this patient symptom has been going on for more than a month and the patient has been treating it himself by soaking in water as per instruction of his primary care physician however the patient did have worsening of the swelling redness and pain to the right foot for which the patient presented to hospital in the patient described his pain to be more of a sharp in nature intensity 5-6 out of 10 head no radiation patient did have foreskin but no foul-smelling drainage on presentation to the hospital the patient was afebrile and no fever have been recorded subsequently patient did have a normal white count kidney function has been normal schroeder PCR was negative a local culture has been repeated and the patient was started on naficillin infectious disease was consulted for further management of antibiotic therapy Review of system: CONSTITUTIONAL: Positive for weakness denies high-grade fever. EYES: No complaint. ENT: No complaint. RESPIRATORY: No complaint. CARDIOVASCULAR: No complaint. GENITOURINARY: No complaint. GASTROINTESTINAL: No complaint. MUSCULOSKELETAL: No complaint. INTEGUMENTARY : As per history of present illness. PSYCHOLOGIC: No complaint. ENDOCRINE: No complaint. NEUROLOGIC: No complaint. Past medical history : Reviewed, documented below Past surgical history : Reviewed, documented below Social history: Reviewed, documented below Medications: Reviewed, as documented below EXAMINATION: Vital sigans= Reviewed and documented below GENERAL DESCRIPTION: Middle-aged male lying in bed, no distress. No tachypnea or accessory muscle of respiration use. HEENT: Shows Pallor , no scleral icterus. Oral mucous membrane is dry. NECK: Trachea central, no thyromegaly. LUNGS: Unlabored breathing. Clear to auscultation anteriorly. No wheeze or crackle. HEART: S1, S2, regular rate and rhythm. ABDOMEN: Soft, no tenderness , guarding or rigidity EXTREMITIES right foot some did have a swelling and redness mostly around his toes area with evidence of significant athletes feet and a dry scaly skin on the plantar aspect SKIN: No rash, no masses palpable. NEUROLOGICAL: The patient is awake, alert, oriented x3, mood and affect normal. LABS AND RADIOLOGY: Reviewed results see below Assessment : Patient presented to hospital with right foot cellulitis anticipated evidence of extensive athlete's foot likely his main issue and a possible component of secondary cellulitis likely from gram-positive skin ton Plan: 1-discontinue nafcillin 2-start the patient cefazolin 2 g every 8 hours and oral Diflucan 3-nystatin powder in between the toes twice a day We will follow on clinical condition and cultures to further adjust medication if needed Thank you for this consultation we will follow the patient along with you Past Medical History Past Medical History: Seizure Disorder History of Any Multi-Drug Resistant Organisms: None Reported Additional Past Surgical History / Comment(s): Right leg fracture repair Smoking Status: Current every day smoker Medications and Allergies Home Medications Medication Instructions Recorded Confirmed Type Albuterol Sulfate [Proair Hfa] 2 puff INHALATION RT-QID PRN 03/20/21 03/20/21 History Metoprolol Tartrate [Lopressor] 100 mg PO BID 03/20/21 03/20/21 History cloNIDine HCL 0.1 mg PO HS 03/20/21 03/20/21 History cloNIDine HCL [Catapres] 0.2 mg PO DAILY 03/20/21 03/20/21 History lisinopriL [Zestril] 5 mg PO DAILY 03/20/21 03/20/21 History Allergies Allergy/AdvReac Type Severity Reaction Status Date / Time No Known Allergies Allergy Verified 03/20/21 09:29 Physical Exam Vitals: Vital Signs Temp Pulse Pulse Resp BP BP Pulse Ox 03/20/21 10:31 98.2 F 79 18 136/82 96 03/20/21 08:00 98.2 F 79 18 136/82 96 03/20/21 06:30 72 18 148/90 97 03/20/21 05:06 70 16 139/72 95 03/20/21 02:02 88 16 145/68 93 L 03/20/21 01:01 80 20 139/52 94 L 03/19/21 23:46 74 03/19/21 23:09 98 F 69 17 134/62 97 Intake and Output 03/19/21 03/20/21 03/20/21 22:59 06:59 14:59 Other: Voiding Method Toilet # Voids 2 Weight 66.678 kg 64.9 kg Results CBC & Chem 7: 03/20/21 00:47 03/20/21 00:47 Labs: Abnormal Lab Results - Last 24 Hours (Table) 03/20/21 03/20/21 Range/Units 00:47 00:47 Sodium 123 L (137-145) mmol/L Potassium 5.2 H (3.5-5.1) mmol/L Chloride 92 L (98-107) mmol/L Carbon Dioxide 20 L (22-30) mmol/L BUN 4 L (9-20) mg/dL Creatinine 0.49 L (0.66-1.25) mg/dL Osmolality 303 H (280-301) mosm/kg
[2021-03-21] MEDS: SODIUM CHLORIDE 0.9% 1,000 ML IV SCH ×3 (04:29→14:57)
[2021-03-21] MEDS: FAMOTIDINE 20 MG TAB PO SCH ×2 (08:06→21:35)
[2021-03-21] MEDS: FLUCONAZOLE 100 MG TAB PO SCH (08:06)
[2021-03-21] MEDS: THIAMINE 100 MG TAB PO SCH ×2 (08:06→17:35)
[2021-03-21] MEDS: NYSTATIN 100,000 UNIT/GM POWD 15 GM TOPICAL SCH ×2 (08:07→21:35)
[2021-03-21] MEDS: ENOXAPARIN 40 MG/0.4 ML SYRINGE SQ SCH (08:07)
[2021-03-21] MEDS: LORazepam 2 MG/ML INJ IV PRN ×2 (09:42→22:58)
[2021-03-21 10:15] LABS: African American GFR (CKD) >90 (>60 ml/min/1.73 sqM); Anion Gap 4 mmol/L; Blood Urea Nitrogen 3 mg/dL (9-20); Calcium 8.5 mg/dL (8.4-10.2); Carbon Dioxide 24 mmol/L (22-30); Chloride 103 mmol/L (98-107); Glucose 119 mg/dL (74-99); Non-African American GFR(CKD) >90 (>60 ml/min/1.73 sqM); Potassium 3.8 mmol/L (3.5-5.1); Sodium 131 mmol/L (137-145)
--- NOTE | 2021-03-21 22:05 | P.PN ---
Subjective Progress Note Date: 03/21/21 Principal diagnosis: Right foot cellulitis and athlete's foot Patient is a 60-year-old male presenting to the hospital with a right foot pain swelling and redness that has been going on for almost a month has been diagnosed with a cellulitis and evidence of athlete's foot to the right foot. On today's evaluation is 03/21/2021, the patient denies having any fever or any chills the patient is breathing comfortably no chest pain shortness of breath or cough no abdominal pain overall feeling discomfort in the right foot is slightly decreased and no diarrhea with antibiotic therapy Objective - Vital Signs Vital signs: Vital Signs Temp 98.4 F 03/21/21 20:00 Pulse 121 H 03/21/21 20:00 Resp 18 03/21/21 20:00 BP 177/90 03/21/21 20:00 Pulse Ox 94 L 03/21/21 20:00 Intake & Output 03/21/21 03/21/21 03/22/21 06:59 18:59 06:59 Output Total 1050 1170 Balance -1050 -1170 Output: Urine 1050 1170 Other: Voiding Method Toilet # Voids 4 - Exam GENERAL DESCRIPTION:[ Patient is awake and alert in no distress] HEENT: [Oral mucosa is dry and no pharyngeal erythema] RESPIRATORY SYSTEM: [Unlabored breathing clear to auscultation] CARDIA VASCULAR SYSTEM: [S1-S2 regular rate and rhythm no murmur] GI: [Abdominal soft there's no tenderness no organomegaly] EXTREMITIES: [Right foot swelling redness is slightly decreased - Labs CBC & Chem 7: 03/20/21 00:47 03/21/21 09:29 Labs: Abnormal Lab Results - Last 24 Hours (Table) 03/21/21 Range/Units 09:29 Sodium 131 L (137-145) mmol/L BUN 3 L (9-20) mg/dL Creatinine 0.64 L (0.66-1.25) mg/dL Glucose 119 H (74-99) mg/dL Microbiology - Last 24 Hours (Table) 03/20/21 11:36 Gram Stain - Preliminary Foot - Right Wound Culture - Preliminary Strep agalactiae - (group b) 03/20/21 01:35 Blood Culture - Preliminary Blood No Growth after 24 hours 03/20/21 00:47 Blood Culture - Preliminary Blood No Growth after 24 hours 03/20/21 11:36 Anaerobic Culture - Preliminary Foot - Right Assessment and Plan (1) Right foot infection Current Visit: Yes Status: Acute Code(s): L08.9 - LOCAL INFECTION OF THE SKIN AND SUBCUTANEOUS TISSUE, UNSP SNOMED Code(s): 113807970 Plan: Patient is in the hospital bed foot swelling and redness in this patient did have evidence of extensive athlete's foot along with secondary cellulitis, local culture showing streptococci, patient is covered with the cefazolin Diflucan and nystatin powder to continue Time with Patient: Less than 30
--- NOTE | 2021-03-22 | P.PN ---
Subjective Progress Note Date: 03/21/21 Patient 60-year-old male came in because of redness and infection of the right foot. Patient has a right foot finger web infection along with cellulitis. Patient denied any history of MRSA in the past patient is presently on nafcillin probably need to be switched to vancomycin and on ceftezolin. Patient the does drink alcohol on a daily basis cc about 3 beers a day probably drinks more than that. Patient is hyponatremic. Patient has all call withdrawal seizures in the past to smoke about a pack of steroids per day. Patient doesn't have any fever chills doesn't have any leukocytosis at this time 03/21/2021 Patient is seen and evaluated in follow-up this morning and continues on IV cefazolin with ID following closely. Patient also continues with fluconazole. Sodium improved at 131 today and will continue with gentle IV hydration and decrease the dose and repeat am labs. Encouraged oral intake. Patient is also continued on CIWA protocol and appears tremulous on exam and still receiving IV ativan. Patient denies any chest pain or palpitations. Patient denies shortness of breath. Patient is afebrile. Labs: Sodium is 131, potassium is 3.8, BUN is 3, creatinine 0.64, calcium 8.5 Review of systems: Constitutional: No reports of fatigue, fever, or chills Cardiovascular: No reports of chest pain or palpitations Respiratory: No reports of shortness of breath or cough GI: No reports of nausea, vomiting, or diarrhea : No reports of dysuria or retention Neurovascular: No reports of weakness or numbness, reports right foot pain although somewhat better today. All medications have been reviewed Active Medications Acetaminophen (Acetaminophen Tab 325 Mg Tab) 650 mg PO Q6HR PRN PRN Reason: Mild Pain or Fever > 100.5 Albuterol Sulfate (Albuterol Hfa Inhaler) 2 puff INHALATION RT-QID PRN PRN Reason: Shortness Of Breath Enoxaparin Sodium (Enoxaparin 40 Mg/0.4 Ml Syringe) 40 mg SQ DAILY [facility] Last Admin: 03/21/21 08:07 Dose: Not Given Documented by: Famotidine (Famotidine 20 Mg Tab) 20 mg PO BID [facility] Last Admin: 03/21/21 08:06 Dose: 20 mg Documented by: Fluconazole (Fluconazole 100 Mg Tab) 100 mg PO DAILY [facility] Last Admin: 03/21/21 08:06 Dose: 100 mg Documented by: Sodium Chloride (Saline 0.9%) 1,000 mls @ 130 mls/hr IV .[id number] [facility] Last Admin: 03/21/21 09:46 Dose: 130 mls/hr Documented by: Cefazolin Sodium 2 gm/ Sodium (Chloride) 50 mls @ 100 mls/hr IVPB Q8HR [facility] Last Admin: 03/21/21 08:06 Dose: 100 mls/hr Documented by: Lorazepam (Lorazepam 2 Mg/Ml Inj) 1 mg IV Q2HR PRN PRN Reason: CIWA 8 or 9 Last Admin: 03/21/21 09:42 Dose: 1 mg Documented by: Lorazepam (Lorazepam 2 Mg/Ml Inj) 1 mg IV Q1HR PRN PRN Reason: CIWA 10 to 15 Lorazepam (Lorazepam 2 Mg/Ml Inj) 2 mg IV Q10M PRN PRN Reason: CIWA 16 or higher Stop: 03/22/21 11:23 Naloxone HCl (Naloxone 0.4 Mg/Ml 1 Ml Vial) 0.2 mg IV Q2M PRN PRN Reason: Opioid Reversal Nystatin (Nystatin 100,000 Unit/Gm Powd 15 Gm) 1 applic TOPICAL BID [facility]; Protocol Last Admin: 03/21/21 08:07 Dose: 1 applic Documented by: Thiamine HCl (Thiamine 100 Mg Tab) 100 mg PO BID-W/MEALS [facility] Last Admin: 03/21/21 08:06 Dose: 100 mg Documented by: PHYSICAL EXAMINATION: GENERAL: The patient is alert and oriented x3, not in any acute distress. Well developed, well nourished. HEENT: Pupils are round and equally reacting to light. EOMI. No scleral icterus. No conjunctival pallor. Normocephalic, atraumatic. No pharyngeal erythema. No thyromegaly. CARDIOVASCULAR: S1 and S2 present. No murmurs, rubs, or gallops. PULMONARY: Chest is clear to auscultation, no wheezing or crackles. ABDOMEN: Soft, nontender, nondistended, normoactive bowel sounds. No palpable organomegaly. MUSCULOSKELETAL: No joint swelling or deformity. EXTREMITIES: No cyanosis, clubbing, or pedal edema. NEUROLOGICAL: Gross neurological examination did not reveal any focal deficits. SKIN: Patient has cellulitis of the right foot with significant skin breakdown on the plantar as well as dorsal aspect of the distal foot, patient has skin breakdown in the right foot webspaces Assessment and plan: -Cellulitis of the right foot, wound cultures preliminary showing strep group b agalactiae and infectious disease following and is continued on diflucan and cephazolin IV. -Hyponatremia: hypovolemic hyponatremia, patient continued on IV fluids, sodium improved today at 131 -Alcohol abuse: Counseling was provided -Alcohol withdrawal: Patient maintained on Ativan CIOK protocol -Nicotine abuse: Counseling was provided -DVT prophylaxis: Lovenox Plan: Recommend to continue with IV cephazolin and diflucan and topical antifungals with ID following. Prelim cultures showing strep agalactiae group b. Continue CIWA protocol and monitor for any worsening signs of withdrawal. Will add oral and titrate off ativan. Encouraged increased activity and encouraged oral intake. Continue IV hydration and will decrease rate and repeat am labs to monitor sodium level. PT to evaluate the patient. Objective - Vital Signs Vital signs: Vital Signs Temp 98.4 F 03/21/21 07:56 Pulse 59 L 03/21/21 07:56 Resp 17 03/21/21 07:56 BP 155/90 03/21/21 07:56 Pulse Ox 95 03/21/21 07:56 Intake & Output 03/20/21 03/21/21 03/21/21 18:59 06:59 18:59 Intake Total 1080 Output Total 600 1050 Balance 480 -1050 Weight 64.9 kg Intake: Oral 1080 Output: Urine 600 1050 Other: Voiding Method Toilet Toilet # Voids 2 - Labs CBC & Chem 7: 03/20/21 00:47 03/21/21 09:29 Labs: Microbiology - Last 24 Hours (Table) 03/20/21 01:35 Blood Culture - Preliminary Blood No Growth after 24 hours 03/20/21 00:47 Blood Culture - Preliminary Blood No Growth after 24 hours 03/20/21 11:36 Gram Stain - Preliminary Foot - Right Wound Culture - Preliminary 03/20/21 11:36 Anaerobic Culture - Preliminary Foot - Right
[2021-03-22] MEDS ORDERED: LORazepam 1 MG TAB PO PRN (00:02)
[2021-03-22] MEDS: SODIUM CHLORIDE 0.9% 1,000 ML IV SCH (05:11)
[2021-03-22 06:36] LABS: African American GFR (CKD) >90 (>60 ml/min/1.73 sqM); Anion Gap 5 mmol/L; Blood Urea Nitrogen 2 mg/dL (9-20); Calcium 8.2 mg/dL (8.4-10.2); Carbon Dioxide 25 mmol/L (22-30); Chloride 97 mmol/L (98-107); Glucose 91 mg/dL (74-99); Non-African American GFR(CKD) >90 (>60 ml/min/1.73 sqM); Potassium 3.4 mmol/L (3.5-5.1); Sodium 127 mmol/L (137-145)
[2021-03-22] MEDS: THIAMINE 100 MG TAB PO SCH ×2 (07:27→16:47)
[2021-03-22] MEDS: METOPROLOL TARTRATE 50 MG TAB PO SCH ×2 (10:09→21:09)
[2021-03-22] MEDS: ENOXAPARIN 40 MG/0.4 ML SYRINGE SQ SCH (10:10)
[2021-03-22] MEDS: FAMOTIDINE 20 MG TAB PO SCH ×2 (10:10→21:09)
[2021-03-22] MEDS: FLUCONAZOLE 100 MG TAB PO SCH (10:30)
[2021-03-22] MEDS: NYSTATIN 100,000 UNIT/GM POWD 15 GM TOPICAL SCH ×2 (11:08→21:08)
[2021-03-22] MEDS ORDERED: POTASSIUM CHLORIDE ER 20 MEQ TAB.ER PO STA (12:20)
--- NOTE | 2021-03-22 14:03 | P.PN ---
Subjective Progress Note Date: 03/22/21 Patient 60-year-old male came in because of redness and infection of the right foot. Patient has a right foot finger web infection along with cellulitis. Patient denied any history of MRSA in the past patient is presently on nafcillin probably need to be switched to vancomycin and on ceftezolin. Patient the does drink alcohol on a daily basis cc about 3 beers a day probably drinks more than that. Patient is hyponatremic. Patient has all call withdrawal seizures in the past to smoke about a pack of steroids per day. Patient doesn't have any fever chills doesn't have any leukocytosis at this time 03/21/2021 Patient is seen and evaluated in follow-up this morning and continues on IV cefazolin with ID following closely. Patient also continues with fluconazole. Sodium improved at 131 today and will continue with gentle IV hydration and decrease the dose and repeat am labs. Encouraged oral intake. Patient is also continued on CIWA protocol and appears tremulous on exam and still receiving IV ativan. Patient denies any chest pain or palpitations. Patient denies shortness of breath. Patient is afebrile. 03/22/2021 Patient is seen in follow-up today continues on IV cefazolin while awaiting for cultures to finalized. Preliminary wound culture showing strep agalactiae group B and gram-negative bacilli and awaiting for cultures to finalized. ID following closely and patient is also continued on local wound care to the right foot. Patient states the pain is improved although continues with discomfort and sensitivity of the right foot. Patient also continues on oral fluconazole. Patient continues on CIWA protocol although requiring less Ativan and have added oral Ativan and discuss with nursing staff about avoiding IV Ativan if possible. Encourage the patient increase activity as tolerated and increased oral intake. PT to evaluate the patient. Sodium slightly worse at 127 and will discontinue IV fluids and fluid restrict with repeat labs in the morning. Potassium is 3.4 today and will replace per protocol. Labs: Sodium is 127, potassium 3.4, BUN 2, creatinine 0.47, calcium 8.2 Review of systems: Constitutional: No reports of fatigue, fever, or chills Cardiovascular: No reports of chest pain or palpitations Respiratory: No reports of shortness of breath or cough GI: No reports of nausea, vomiting, or diarrhea : No reports of dysuria or retention Neurovascular: No reports of weakness or numbness, reports right foot pain although somewhat better today. All medications have been reviewed Active Medications Acetaminophen (Acetaminophen Tab 325 Mg Tab) 650 mg PO Q6HR PRN PRN Reason: Mild Pain or Fever > 100.5 Albuterol Sulfate (Albuterol Hfa Inhaler) 2 puff INHALATION RT-QID PRN PRN Reason: Shortness Of Breath Enoxaparin Sodium (Enoxaparin 40 Mg/0.4 Ml Syringe) 40 mg SQ DAILY [facility] Last Admin: 03/22/21 10:10 Dose: 40 mg Documented by: Famotidine (Famotidine 20 Mg Tab) 20 mg PO BID [facility] Last Admin: 03/22/21 10:10 Dose: 20 mg Documented by: Fluconazole (Fluconazole 100 Mg Tab) 100 mg PO DAILY [facility] Last Admin: 03/22/21 10:30 Dose: 100 mg Documented by: Sodium Chloride (Saline 0.9%) 1,000 mls @ 100 mls/hr IV .Q10H [facility] Last Admin: 03/22/21 05:11 Dose: 100 mls/hr Documented by: Cefazolin Sodium 2 gm/ Sodium (Chloride) 50 mls @ 100 mls/hr IVPB Q8HR [facility] Last Admin: 03/22/21 07:42 Dose: 100 mls/hr Documented by: Lorazepam (Lorazepam 2 Mg/Ml Inj) 1 mg IV Q2HR PRN PRN Reason: CIWA 8 or 9 Last Admin: 03/21/21 22:58 Dose: 1 mg Documented by: Lorazepam (Lorazepam 2 Mg/Ml Inj) 1 mg IV Q1HR PRN PRN Reason: CIWA 10 to 15 Lorazepam (Lorazepam 1 Mg Tab) 1 mg PO Q8HR PRN PRN Reason: Anxiety Last Admin: 03/22/21 07:26 Dose: 1 mg Documented by: Metoprolol Tartrate (Metoprolol Tartrate 50 Mg Tab) 100 mg PO BID [facility] Last Admin: 03/22/21 10:09 Dose: 100 mg Documented by: Naloxone HCl (Naloxone 0.4 Mg/Ml 1 Ml Vial) 0.2 mg IV Q2M PRN PRN Reason: Opioid Reversal Nystatin (Nystatin 100,000 Unit/Gm Powd 15 Gm) 1 applic TOPICAL BID [facility]; Protocol Last Admin: 03/22/21 11:08 Dose: Not Given Documented by: Thiamine HCl (Thiamine 100 Mg Tab) 100 mg PO BID-W/MEALS MELLISSA Last Admin: 03/22/21 07:27 Dose: 100 mg Documented by: PHYSICAL EXAMINATION: GENERAL: The patient is alert and oriented x3, not in any acute distress. Well developed, well nourished. HEENT: Pupils are round and equally reacting to light. EOMI. No scleral icterus. No conjunctival pallor. Normocephalic, atraumatic. No pharyngeal erythema. No thyromegaly. CARDIOVASCULAR: S1 and S2 present. No murmurs, rubs, or gallops. PULMONARY: Chest is clear to auscultation, no wheezing or crackles. ABDOMEN: Soft, nontender, nondistended, normoactive bowel sounds. No palpable organomegaly. MUSCULOSKELETAL: No joint swelling or deformity. EXTREMITIES: No cyanosis, clubbing, or pedal edema. NEUROLOGICAL: Gross neurological examination did not reveal any focal deficits. SKIN: Patient has cellulitis of the right foot with significant skin breakdown on the plantar as well as dorsal aspect of the distal foot, patient has skin breakdown in the right foot webspaces Assessment and plan: -Cellulitis of the right foot, wound cultures preliminary showing strep group b agalactiae and gram-negative bacilli and infectious disease following and is continued on diflucan and cephazolin IV. Awaiting for finalized cultures -Hyponatremia: hypovolemic hyponatremia, will fluid restrict 1200 ml per day and discontinue IV fluids and repeat labs -Alcohol abuse: Counseling was provided -Alcohol withdrawal: Patient maintained on Ativan CIWA protocol -Nicotine abuse: Counseling was provided -DVT prophylaxis: Lovenox -GI prophylaxis -Full code Plan: Recommend to continue with IV cephazolin and diflucan and topical antifungals with ID following. Prelim cultures showing strep agalactiae group b along with gram-negative bacilli and awaiting for finalized cultures to determine discharge antibiotics. Continue CIWA protocol and monitor for any worsening signs of withdrawal. . Encouraged increased activity and encouraged oral intake. PT to evaluate the patient. Discussed discharge planning and the patient would like to return home with home care. Will await PT notes for possible ECF and consult social work if needed. Will repeat labs and monitor sodium level and continue fluid restrictions of 1200 mL. Possible discharge in 24-48 hours. Objective - Vital Signs Vital signs: Vital Signs Temp 97.9 F 03/22/21 09:01 Pulse 77 03/22/21 09:01 Resp 14 03/22/21 09:01 BP 158/95 03/22/21 09:01 Pulse Ox 98 03/22/21 09:01 Intake & Output 03/21/21 03/22/21 03/22/21 18:59 06:59 18:59 Intake Total 1000 180 Output Total 1170 380 200 Balance -1170 620 -20 Intake: IV 1000 Sodium Chloride 0.9% 1, 1000 000 ml @ 100 mls/hr IV . Q10H [facility] Rx#:[id number] Oral 180 Output: Urine 1170 380 200 Other: Voiding Method Toilet # Voids 4 200 - Labs CBC & Chem 7: 03/20/21 00:47 03/22/21 03:17 Labs: Abnormal Lab Results - Last 24 Hours (Table) 03/22/21 Range/Units 03:17 Sodium 127 L (137-145) mmol/L Potassium 3.4 L (3.5-5.1) mmol/L Chloride 97 L (98-107) mmol/L BUN 2 L (9-20) mg/dL Creatinine 0.47 L (0.66-1.25) mg/dL Calcium 8.2 L (8.4-10.2) mg/dL Microbiology - Last 24 Hours (Table) 03/20/21 11:36 Gram Stain - Preliminary Foot - Right Wound Culture - Preliminary Strep agalactiae - (group b) Gram Neg Bacilli 03/20/21 01:35 Blood Culture - Preliminary Blood No Growth after 48 hours 03/20/21 00:47 Blood Culture - Preliminary Blood No Growth after 48 hours
--- NOTE | 2021-03-22 22:04 | P.PN ---
Subjective Progress Note Date: 03/22/21 Principal diagnosis: Right foot cellulitis and athlete's foot Patient is a 60-year-old male presenting to the hospital with a right foot pain swelling and redness that has been going on for almost a month has been diagnosed with a cellulitis and evidence of athlete's foot to the right foot. On today's evaluation is 03/22/2021, the patient remains to be afebrile the pa tient is breathing comfortably on room air, the patient denies chest pain shortness of breath or cough no abdominal pain overall feeling discomfort in the right foot is slightly decreased and no diarrhea with antibiotic therapy Objective - Vital Signs Vital signs: Vital Signs Temp 98.8 F 03/22/21 20:00 Pulse 101 H 03/22/21 20:00 Resp 18 03/22/21 20:00 BP 154/89 03/22/21 20:00 Pulse Ox 95 03/22/21 20:00 Intake & Output 03/22/21 03/22/21 03/23/21 06:59 18:59 06:59 Intake Total 1000 180 Output Total 380 475 325 Balance 620 -295 -325 Intake: IV 1000 Sodium Chloride 0.9% 1, 1000 000 ml @ 100 mls/hr IV . Q10H [facility] Rx#:[id number] Oral 180 Output: Urine 380 475 325 Other: Voiding Method Toilet # Voids 200 1 - Exam GENERAL DESCRIPTION:[ Patient is awake and alert in no distress] HEENT: [Oral mucosa is dry and no pharyngeal erythema] RESPIRATORY SYSTEM: [Unlabored breathing clear to auscultation] CARDIA VASCULAR SYSTEM: [S1-S2 regular rate and rhythm no murmur] GI: [Abdominal soft there's no tenderness no organomegaly] EXTREMITIES: [Right foot swelling redness is slightly decreased - Labs CBC & Chem 7: 03/20/21 00:47 03/22/21 03:17 Labs: Abnormal Lab Results - Last 24 Hours (Table) 03/22/21 Range/Units 03:17 Sodium 127 L (137-145) mmol/L Potassium 3.4 L (3.5-5.1) mmol/L Chloride 97 L (98-107) mmol/L BUN 2 L (9-20) mg/dL Creatinine 0.47 L (0.66-1.25) mg/dL Calcium 8.2 L (8.4-10.2) mg/dL Microbiology - Last 24 Hours (Table) 03/20/21 11:36 Gram Stain - Preliminary Foot - Right Wound Culture - Preliminary Strep agalactiae - (group b) Gram Neg Bacilli 03/20/21 01:35 Blood Culture - Preliminary Blood No Growth after 48 hours 03/20/21 00:47 Blood Culture - Preliminary Blood No Growth after 48 hours Assessment and Plan (1) Right foot infection Current Visit: Yes Status: Acute Code(s): L08.9 - LOCAL INFECTION OF THE SKIN AND SUBCUTANEOUS TISSUE, UNSP SNOMED Code(s): 493787024 Plan: Patient is in the hospital bed foot swelling and redness in this patient did have evidence of extensive athlete's foot along with secondary cellulitis, local culture showing streptococci, patient to continue with the cefazolin 2 g every 8 hours and Diflucan and nystatin powder with the plan to finish therapy with oral antibiotics Time with Patient: Less than 30
[2021-03-23 04:04] LABS: African American GFR (CKD) >90 (>60 ml/min/1.73 sqM); Anion Gap 4 mmol/L; Blood Urea Nitrogen 3 mg/dL (9-20); Calcium 8.4 mg/dL (8.4-10.2); Carbon Dioxide 25 mmol/L (22-30); Chloride 98 mmol/L (98-107); Glucose 91 mg/dL (74-99); Non-African American GFR(CKD) >90 (>60 ml/min/1.73 sqM); Sodium 127 mmol/L (137-145)
[2021-03-23] MEDS: METOPROLOL TARTRATE 50 MG TAB PO SCH (08:00)
[2021-03-23] MEDS: THIAMINE 100 MG TAB PO SCH (08:01)
[2021-03-23] MEDS: ENOXAPARIN 40 MG/0.4 ML SYRINGE SQ SCH (08:01)
[2021-03-23] MEDS: FAMOTIDINE 20 MG TAB PO SCH (08:01)
[2021-03-23] MEDS: FLUCONAZOLE 100 MG TAB PO SCH (08:01)
[2021-03-23] MEDS: NYSTATIN 100,000 UNIT/GM POWD 15 GM TOPICAL SCH (08:02)
[2021-03-23 09:57] VITALS: BP 150/90; PULSE 74; RESP 18; TEMP 98.2
--- NOTE | 2021-03-24 00:46 | P.DS ---
Providers Date of admission: 03/20/21 05:08 Expected date of discharge: 03/23/21 Attending physician: Navid Barry Consults: 03/20/21 11:28 Consult Physician Routine Consulting Provider: Abbe Daily Consult Reason/Comments: wound infection Do you want consulting provider notified?: Yes Primary care physician: [facility] Hospital Course: Final Diagnosis Assessment and plan: -Cellulitis of the right foot, wound cultures preliminary showing strep group b agalactiae and gram-negative bacilli -Hyponatremia: hypovolemic hyponatremia, improving -Alcohol abuse: Counseling was provided -Alcohol withdrawal -Nicotine abuse: Counseling was provided -DVT prophylaxis: Lovenox -GI prophylaxis -Full code Discharge disposition Patient is being discharged in a stable condition with guarded prognosis to home. Patient will follow-up with komal moore in the outpatient setting upon discharge. Patient is to continue with oral keflex 500mg 4 times daily for the next 10 days and recommend follow up at the wound clinic with Dr. Daily in one week. Recommend repeat labs for BMP in the outpatient setting to monitor sodium levels. Total time taken is greater than 35 minutes. Hospital Course Patient 60-year-old male came in because of redness and infection of the right foot. Patient has a right foot finger web infection along with cellulitis. Patient denied any history of MRSA in the past patient is presently on nafcillin probably need to be switched to vancomycin and on ceftezolin. Patient the does drink alcohol on a daily basis cc about 3 beers a day probably drinks more than that. Patient is hyponatremic. Patient has all call withdrawal seizures in the past to smoke about a pack of steroids per day. Patient doesn't have any fever chills doesn't have any leukocytosis at this time 03/21/2021 Patient is seen and evaluated in follow-up this morning and continues on IV cefazolin with ID following closely. Patient also continues with fluconazole. Sodium improved at 131 today and will continue with gentle IV hydration and decrease the dose and repeat am labs. Encouraged oral intake. Patient is also continued on CIWA protocol and appears tremulous on exam and still receiving IV ativan. Patient denies any chest pain or palpitations. Patient denies shortness of breath. Patient is afebrile. 03/22/2021 Patient is seen in follow-up today continues on IV cefazolin while awaiting for cultures to finalized. Preliminary wound culture showing strep agalactiae group B and gram-negative bacilli and awaiting for cultures to finalized. ID reynaldo lorenzanawing closely and patient is also continued on local wound care to the right foot. Patient states the pain is improved although continues with discomfort and sensitivity of the right foot. Patient also continues on oral fluconazole. Patient continues on CIWA protocol although requiring less Ativan and have added oral Ativan and discuss with nursing staff about avoiding IV Ativan if possible. Encourage the patient increase activity as tolerated and increased oral intake. PT to evaluate the patient. Sodium slightly worse at 127 and will discontinue IV fluids and fluid restrict with repeat labs in the morning. Potassium is 3.4 today and will replace per protocol. 03/23/2021 Patient is seen in follow up this morning and maintained on IV cefazolin. some of the cultures resulted and aerobic still pending with gram negative and discussed with micro in [place] and will need additional 24 hours to determine finalized cultures. Discussed with the patient and encouraged the patient to st ay for one more night to await cultures and patient continues to be persistent on being discharged today. Patient also maintained on oral Diflucan and nystatin powder with local wound care and will continue on discharge. Patient gait was steady on exam and only stand by assist for safety and required no assistance. Patient also states much improved on pain of the right foot and able to bear pressure on it. Sodium continues to be 127 as well and recommend fluid restrictions of 1200ml per day and prescription provided for repeat labs in 2-3 days. Patient strongly encouraged to avoid alcohol intake. Patient will be discharge today with guarded prognosis. Currently no reports of chest pain, shortness of breath, or palpitations. Patient is afebrile. No reports of nausea or vomiting and tolerating diet. Patient denies any dizziness, lightheadedness or feeling of passing out with walking. PHYSICAL EXAMINATION: GENERAL: The patient is alert and oriented x3, not in any acute distress. Well developed, well nourished. gait was steady on exam HEENT: Pupils are round and equally reacting to light. EOMI. No scleral icterus. No conjunctival pallor. Normocephalic, atraumatic. No pharyngeal erythema. No thyromegaly. CARDIOVASCULAR: S1 and S2 present. No murmurs, rubs, or gallops. PULMONARY: Chest is clear to auscultation, no wheezing or crackles. ABDOMEN: Soft, nontender, nondistended, normoactive bowel sounds. No palpable organomegaly. MUSCULOSKELETAL: No joint swelling or deformity. EXTREMITIES: No cyanosis, clubbing, or pedal edema. NEUROLOGICAL: Gross neurological examination did not reveal any focal deficits. SKIN: Patient has cellulitis of the right foot with significant skin breakdown on the plantar as well as dorsal aspect of the distal foot, patient has skin breakdown in the right foot webspaces, improving Please refer to medication reconciliation sheet for a list of medications. Patient Condition at Discharge: Stable Plan - Discharge Summary Discharge Rx Participant: No New Discharge Prescriptions: New Fluconazole [Diflucan] 100 mg PO DAILY 5 Days #5 tab Nystatin 100,000 Unit/gm Powd [Mycostatin Powder] 1 applic TOPICAL BID 10 Days #1 dispenser Acetaminophen Tab [Tylenol] 650 mg PO Q6HR PRN tab PRN Reason: Mild Pain Or Fever > 100.5 Cephalexin [Keflex] 500 mg PO Q6HR 10 Days #40 cap Famotidine [Pepcid] 20 mg PO BID 14 Days #30 tab Thiamine [Vitamin B-1] 100 mg PO BID-W/MEALS #60 tab Continue cloNIDine HCL 0.1 mg PO HS Metoprolol Tartrate [Lopressor] 100 mg PO BID Albuterol Sulfate [Proair Hfa] 2 puff INHALATION RT-QID PRN PRN Reason: Shortness Of Breath Discontinued cloNIDine HCL [Catapres] 0.2 mg PO DAILY lisinopriL [Zestril] 5 mg PO DAILY Discharge Medication List Albuterol Sulfate [Proair Hfa] 2 puff INHALATION RT-QID PRN 03/20/21 [History] Metoprolol Tartrate [Lopressor] 100 mg PO BID 03/20/21 [History] cloNIDine HCL 0.1 mg PO HS 03/20/21 [History] Acetaminophen Tab [Tylenol] 650 mg PO Q6HR PRN tab 03/23/21 [Rx] Cephalexin [Keflex] 500 mg PO Q6HR 10 Days #40 cap 03/23/21 [Rx] Famotidine [Pepcid] 20 mg PO BID 14 Days #30 tab 03/23/21 [Rx] Fluconazole [Diflucan] 100 mg PO DAILY 5 Days #5 tab 03/23/21 [Rx] Nystatin 100,000 Unit/gm Powd [Mycostatin Powder] 1 applic TOPICAL BID 10 Days #1 dispenser 03/23/21 [Rx] Thiamine [Vitamin B-1] 100 mg PO BID-W/MEALS #60 tab 03/23/21 [Rx] Follow up Appointment(s)/Referral(s): Komal Moore FNPBC [REFERRING] - 1-2 Days [facility], [NON-STAFF] - Abbe Daily MD [STAFF PHYSICIAN] - 1 Week Ambulatory/Diagnostic Orders: Basic Metabolic Panel [LAB.AMB] Time Frame: 3 Days, Location: None Selected Activity/Diet/Wound Care/Special Instructions: Patient home meds at inpatient pharmacy, slip in chart, please remember to package pick up prior to discharge Activity Limited until follow-up Follow-up with primary care provider on discharge Continue current medications until finished Follow-up with infectious disease outpatient in 1-2 weeks Continue with nystatin cream and/or powder to the foot and in between the toes twice daily for 1 week Continue with antibiotics 4 times daily for 10 days Follow-up labs to monitor BMP and sodium level in 2-3 days Continue fluid restrictions of 1200 mL per day Avoid all alcohol intake Discharge Disposition: HOME SELF-CARE
--- NOTE | 2021-03-30 20:20 | P.PN ---
Subjective Progress Note Date: 03/23/21 Principal diagnosis: Right foot cellulitis and athlete's foot Patient is a 60-year-old male presenting to the hospital with a right foot pain swelling and redness that has been going on for almost a month has been diagnosed with a cellulitis and evidence of athlete's foot to the right foot. On today's evaluation is 03/23/2021, the patient is afebrile the patient is br eathing comfortably on room air, the patient denies chest pain shortness of breath or cough, the patient denies abdominal pain overall discomfort in the right foot has decreased in intensity and no diarrhea with antibiotic therapy Objective - Vital Signs Vital signs: Vital Signs Temp 98.2 F 03/23/21 07:45 Pulse 74 03/23/21 07:45 Resp 18 03/23/21 07:45 BP 150/90 03/23/21 07:45 Pulse Ox 94 L 03/23/21 07:45 Intake & Output 03/22/21 03/23/21 03/23/21 18:59 06:59 18:59 Intake Total 180 180 Output Total 475 975 Balance -295 -975 180 Intake: Oral 180 180 Output: Urine 475 975 Other: Voiding Method Toilet Toilet # Voids 1 - Exam GENERAL DESCRIPTION:[ Patient is awake and alert in no distress] HEENT: [Oral mucosa is dry and no pharyngeal erythema] RESPIRATORY SYSTEM: [Unlabored breathing clear to auscultation] CARDIA VASCULAR SYSTEM: [S1-S2 regular rate and rhythm no murmur] GI: [Abdominal soft there's no tenderness no organomegaly] EXTREMITIES: [Right foot swelling redness is slightly decreased - Labs CBC & Chem 7: 03/20/21 00:47 03/23/21 03:09 Labs: Abnormal Lab Results - Last 24 Hours (Table) 03/23/21 Range/Units 03:09 Sodium 127 L (137-145) mmol/L BUN 3 L (9-20) mg/dL Creatinine 0.54 L (0.66-1.25) mg/dL Microbiology - Last 24 Hours (Table) 03/20/21 01:35 Blood Culture - Preliminary Blood No Growth after 72 hours 03/20/21 00:47 Blood Culture - Preliminary Blood No Growth after 72 hours 03/20/21 11:36 Gram Stain - Preliminary Foot - Right Wound Culture - Preliminary Strep agalactiae - (group b) Gram Neg Bacilli Assessment and Plan (1) Right foot infection Status: Acute Code(s): L08.9 - LOCAL INFECTION OF THE SKIN AND SUBCUTANEOUS TISSUE, UNSP SNOMED Code(s): 801958049 Plan: Patient is in the hospital bed foot swelling and redness in this patient did have evidence of extensive athlete's foot along with secondary cellulitis, local culture showing streptococci, patient to finish therapy with oral Keflex D iflucan 7 days and close outpatient follow-up Time with Patient: Less than 30
--- NOTE | 2021-04-21 12:59 | ED ---
Extremity Problem HPI - General Chief complaint: Extremity Problem,Nontraumatic Stated complaint: RT foot pain Time Seen by Provider: 03/19/21 23:36 Source: patient Mode of arrival: wheelchair Limitations: no limitations - History of Present Illness Initial comments: This patient is a 60-year-old man who presents to be evaluated for what he suspects is an infection of his right foot. Patient notes that it had come on up to a week ago although was mild at first and then got worse after he wore per shoes that he feels were restrictive. Patient has not noted systemic symptoms. No fever or chills. No palpitations, chest pain, dyspnea. Patient describes burning pain to the forefoot as well as redness and swelling. MD Complaint: extremity pain -: days(s) Location: right (Foot) History of Same: No Radiation: none Quality: burning Consistency: constant Improves with: nothing Worsens with: nothing Associated Symptoms: denies other symptoms - Related Data Home Medications Medication Instructions Recorded Confirmed Albuterol Sulfate [Proair Hfa] 2 puff INHALATION RT-QID PRN 03/20/21 03/24/21 Metoprolol Tartrate [Lopressor] 100 mg PO BID 03/20/21 03/24/21 cloNIDine HCL 0.1 mg PO HS 03/20/21 03/24/21 Cephalexin [Keflex] 500 mg PO Q6H 03/24/21 03/24/21 Nystatin 100,000 Unit/gm Powd 1 applic TOPICAL BID 03/24/21 03/24/21 [Mycostatin Powder] Previous Rx's Medication Instructions Recorded Acetaminophen Tab [Tylenol] 650 mg PO Q6HR PRN tab 03/23/21 Famotidine [Pepcid] 20 mg PO BID 14 Days #30 tab 03/23/21 Fluconazole [Diflucan] 100 mg PO DAILY 5 Days #5 tab 03/23/21 Thiamine [Vitamin B-1] 100 mg PO BID-W/MEALS #60 tab 03/23/21 Albuterol Inhaler [Ventolin Hfa 2 puff INHALATION RT-QID PRN #18 gm 03/24/21 Inhaler] Budesonide-Formot 160-4.5 Mcg 2 puff INHALATION BID #10.2 gm 03/24/21 [Symbicort 160-4.5 Mcg Inhaler] Allergies Allergy/AdvReac Type Severity Reaction Status Date / Time No Known Allergies Allergy Verified 03/24/21 06:51 Review of Systems ROS Statement: Those systems with pertinent positive or pertinent negative responses have been documented in the HPI. ROS Other: All systems not noted in ROS Statement are negative. Constitutional: Denies: fever, chills Respiratory: Denies: cough, dyspnea Cardiovascular: Denies: chest pain, palpitations, edema Gastrointestinal: Denies: abdominal pain, vomiting Musculoskeletal: Denies: back pain Skin: Reports: as per HPI, rash Neurological: Denies: weakness, numbness, paresthesias Past Medical History Past Medical History: Seizure Disorder History of Any Multi-Drug Resistant Organisms: None Reported Additional Past Surgical History / Comment(s): Right leg fracture repair Smoking Status: Current every day smoker General Exam General appearance: alert, in no apparent distress Head exam: Present: atraumatic, normocephalic Respiratory exam: Present: normal lung sounds bilaterally. Absent: respiratory distress, wheezes, rales, rhonchi, stridor Cardiovascular Exam: Present: regular rate, normal rhythm, normal heart sounds. Absent: systolic murmur, diastolic murmur, rubs, gallop GI/Abdominal exam: Present: soft. Absent: distended, tenderness, guarding, rebound, mass Extremities exam: Present: normal inspection, normal capillary refill. Absent: pedal edema, calf tenderness Back exam: Present: normal inspection. Absent: CVA tenderness (R), CVA tenderness (L) Neurological exam: Present: alert. Absent: motor sensory deficit Skin exam: Present: warm, dry, erythema (Right forefoot especially interdigital areas) Course Vital Signs 03/19/21 03/19/21 03/20/21 23:09 23:46 01:01 Temperature 98 F Pulse Rate 69 74 80 Respiratory 17 20 Rate Blood Pressure 134/62 139/52 O2 Sat by Pulse 97 94 L Oximetry 03/20/21 03/20/21 03/20/21 02:02 05:06 06:30 Temperature Pulse Rate 88 70 72 Respiratory 16 16 18 Rate Blood Pressure 145/68 139/72 148/90 O2 Sat by Pulse 93 L 95 97 Oximetry Medical Decision Making - Medical Decision Making Patient is 60-year-old man presenting with right foot infection. It appears that it probably had started with some candidal anterior digital infection however there does appear to be some superinfection with cellulitis. Patient be admitted for antibiotics. SIWA will coverage. - Lab Data Result diagrams: 03/20/21 00:47 03/23/21 03:09 Lab Results 03/20/21 03/20/21 03/20/21 Range/Units 00:47 00:47 00:47 WBC 10.1 (3.8-10.6) k/uL RBC 4.47 (4.30-5.90) m/uL Hgb 13.6 (13.0-17.5) gm/dL Hct 43.3 (39.0-53.0) % MCV 97.0 (80.0-100.0) fL MCH 30.4 (25.0-35.0) pg MCHC 31.3 (31.0-37.0) g/dL RDW 13.2 (11.5-15.5) % Plt Count 390 (150-450) k/uL MPV 7.3 Neutrophils % 46 % Lymphocytes % 37 % Monocytes % 8 % Eosinophils % 3 % Basophils % 2 % Neutrophils # 4.7 (1.3-7.7) k/uL Lymphocytes # 3.8 (1.0-4.8) k/uL Monocytes # 0.8 (0-1.0) k/uL Eosinophils # 0.3 (0-0.7) k/uL Basophils # 0.2 (0-0.2) k/uL Sodium 123 L (137-145) mmol/L Potassium 5.2 H (3.5-5.1) mmol/L Chloride 92 L (98-107) mmol/L Carbon Dioxide 20 L (22-30) mmol/L Anion Gap 11 mmol/L BUN 4 L (9-20) mg/dL Creatinine 0.49 L (0.66-1.25) mg/dL Est GFR (CKD-EPI)AfAm >90 (>60 ml/min/1.73 sqM) Est GFR (CKD-EPI)NonAf >90 (>60 ml/min/1.73 sqM) Glucose 84 (74-99) mg/dL Osmolality 303 H (280-301) mosm/kg Calcium 8.8 (8.4-10.2) mg/dL C-Reactive Protein <0.5 (<1.0) mg/dL Disposition Clinical Impression: Right foot infection, Hyponatremia Disposition: ADMITTED IP TO THIS HOSP Condition: Stable Is patient prescribed a controlled substance at d/c from ED?: No
== END 2021-03-23 16:19 | disposition home or self-care (01) | DRG 603 ==
LOC: EC 22:59 → 4SSUR 03-20 05:08
PROVIDERS: ADMIT Internal Medicine; ATTEND Internal Medicine
DX: L03.115 Cellulitis of right lower limb (principal); E87.1 Hypo-osmolality and hyponatremia; F10.239 Alcohol dependence with withdrawal, unspecified; Z20.822 Contact with and (suspected) exposure to COVID-19; G40.909 Epilepsy, unspecified, not intractable, without status epilepticus; E86.1 Hypovolemia; B35.3 Tinea pedis; B95.1 Streptococcus, group B, as the cause of diseases classified elsewhere; B96.89 Other specified bacterial agents as the cause of diseases classified elsewhere; F17.200 Nicotine dependence, unspecified, uncomplicated; Z71.6 Tobacco abuse counseling; Z71.41 Alcohol abuse counseling and surveillance of alcoholic; Z98.890 Other specified postprocedural states; Z79.899 Other long term (current) drug therapy
CPT/HCPCS: 36415; 80048; 80320; 83930; 83935; 85025; 86140; 87040; 87070; 87075; 87077; 87186; 87205; 87635; 96360; 99284

== ENCOUNTER 2021-03-23 23:12 | Observation (INO) | payer OTHER ==
[2021-03-24] MEDS ORDERED: SODIUM CHLORIDE 0.9% 1,000 ML IV STA (00:02)
[2021-03-24 01:08] LABS: Potassium 3.9 mmol/L (3.5-5.1)
[2021-03-24 01:09] LABS: ALT 14 U/L (4-49); AST 26 U/L (17-59); African American GFR (CKD) >90 (>60 ml/min/1.73 sqM); Albumin 3.5 g/dL (3.5-5.0); Alkaline Phosphatase 130 U/L (38-126); Anion Gap 10 mmol/L; Blood Urea Nitrogen 4 mg/dL (9-20); Calcium 9.1 mg/dL (8.4-10.2); Carbon Dioxide 26 mmol/L (22-30); Chloride 93 mmol/L (98-107); Glucose 97 mg/dL (74-99); Non-African American GFR(CKD) >90 (>60 ml/min/1.73 sqM); Sodium 129 mmol/L (137-145); Total Bilirubin 0.6 mg/dL (0.2-1.3); Total Protein 7.3 g/dL (6.3-8.2)
[2021-03-24 01:19] LABS: Alcohol 126 mg/dL
[2021-03-24 01:36] LABS: HCT 43.8 % (39.0-53.0); MCH 31.4 pg (25.0-35.0); Mean Platelet Volume 7.4; Platelet Count 356 k/uL (150-450); RBC 4.47 m/uL (4.30-5.90); RDW 13.8 % (11.5-15.5); WBC 9.4 k/uL (3.8-10.6)
[2021-03-24 02:26] LABS: Eosinophils # (M) 0.09 k/uL (0-0.7); Lymphocytes # (M) 2.82 k/uL (1.0-4.8); Monocytes # (M) 0.85 k/uL (0-1.0); Neutrophils # (M) 5.64 k/uL (1.3-7.7); Neutrophils % (M) 60 %; Nucleated Red Blood Cells 0 /100 WBC (0-0); Total Cells Counted 100
[2021-03-24] MEDS ORDERED: ENOXAPARIN 40 MG/0.4 ML SYRINGE SQ STA (05:21)
[2021-03-24] MEDS ORDERED: NITROGLYCERIN SL TABS 0.4 MG TAB SUBLINGUAL PRN (05:21)
[2021-03-24] MEDS ORDERED: SODIUM CHLORIDE 0.9% 1,000 ML IV SCH (05:30)
--- NOTE | 2021-03-24 05:31 | ED ---
Dizziness HPI - General Chief Complaint: Dizziness Stated Complaint: Balance Issue, Fall Time Seen by Provider: 03/23/21 23:36 Source: patient Mode of arrival: ambulatory Limitations: no limitations - History of Present Illness Initial Comments: This patient is a 60-year-old man who presents to be evaluated for a feeling of dizziness and lightheadedness come on tonight. The patient had been admitted in the hospital a couple of days to begin treatment for a left foot infection. The patient had gone home yesterday. He states that he had some alcohol to drink and then when he got up she was feeling off balance, much more than usual. He also was somewhat lightheaded. He did have a little bit of a fall but denies any injury. There was an episode where his chest felt funny. MD Complaint: dizziness, lightheadedness, difficulty walking -: hour(s) Timing: gradual onset Description: lightheadedness, off-balance, difficulty walking History of Same: Yes History of Trauma: No Severity: moderate Improves With: remaining still Worsens With: movement Associated Symptoms: denies other symptoms - Related Data Home Medications Medication Instructions Recorded Confirmed Albuterol Sulfate [Proair Hfa] 2 puff INHALATION RT-QID PRN 03/20/21 03/24/21 Metoprolol Tartrate [Lopressor] 100 mg PO BID 03/20/21 03/24/21 cloNIDine HCL 0.1 mg PO HS 03/20/21 03/24/21 Cephalexin [Keflex] 500 mg PO Q6H 03/24/21 03/24/21 Nystatin 100,000 Unit/gm Powd 1 applic TOPICAL BID 03/24/21 03/24/21 [Mycostatin Powder] Previous Rx's Medication Instructions Recorded Acetaminophen Tab [Tylenol] 650 mg PO Q6HR PRN tab 03/23/21 Famotidine [Pepcid] 20 mg PO BID 14 Days #30 tab 03/23/21 Fluconazole [Diflucan] 100 mg PO DAILY 5 Days #5 tab 03/23/21 Thiamine [Vitamin B-1] 100 mg PO BID-W/MEALS #60 tab 03/23/21 Allergies Allergy/AdvReac Type Severity Reaction Status Date / Time No Known Allergies Allergy Verified 03/24/21 06:51 Review of Systems ROS Statement: Those systems with pertinent positive or pertinent negative responses have been documented in the HPI. ROS Other: All systems not noted in ROS Statement are negative. Constitutional: Denies: fever, chills, weakness Eyes: Denies: vision change Respiratory: Denies: cough, dyspnea Cardiovascular: Reports: as per HPI, chest pain, syncope (Near syncope). Denies: palpitations, orthopnea, edema Gastrointestinal: Denies: abdominal pain, nausea, vomiting, diarrhea Genitourinary: Denies: dysuria, hematuria Musculoskeletal: Denies: back pain Skin: Denies: rash Neurological: Denies: headache, weakness, numbness Past Medical History Past Medical History: Seizure Disorder History of Any Multi-Drug Resistant Organisms: None Reported Additional Past Surgical History / Comment(s): Right leg fracture repair Past Psychological History: No Psychological Hx Reported Smoking Status: Current every day smoker Past Alcohol Use History: Daily Past Drug Use History: None Reported General Exam Limitations: no limitations General appearance: alert, in no apparent distress, appears intoxicated Head exam: Present: atraumatic, normocephalic Eye exam: Present: normal appearance. Absent: scleral icterus, conjunctival injection ENT exam: Present: mucous membranes dry Neck exam: Present: normal inspection, full ROM. Absent: tenderness Respiratory exam: Present: normal lung sounds bilaterally, wheezes (Trace expiratory wheeze). Absent: respiratory distress, rales, rhonchi, stridor, chest wall tenderness Cardiovascular Exam: Present: regular rate, normal rhythm, normal heart sounds. Absent: systolic murmur, diastolic murmur, rubs, gallop GI/Abdominal exam: Present: soft. Absent: distended, tenderness, guarding, rebound, rigid, mass Extremities exam: Present: normal inspection, normal capillary refill. Absent: pedal edema, calf tenderness Back exam: Present: normal inspection Neurological exam: Present: alert Skin exam: Present: warm, dry, normal color, other (There is some desquamation to the left forefoot over the intertriginous areas toes 2 through 5.) Course Vital Signs 03/23/21 03/24/21 03/24/21 23:16 00:57 03:41 Temperature 98.2 F Pulse Rate 62 104 H 101 H Respiratory 20 18 18 Rate Blood Pressure 153/87 135/96 118/76 O2 Sat by Pulse 97 96 95 Oximetry 03/24/21 03/24/21 04:51 06:52 Temperature Pulse Rate 115 H 101 H Respiratory 18 18 Rate Blood Pressure 148/86 139/94 O2 Sat by Pulse 96 95 Oximetry Medical Decision Making - Medical Decision Making Patient is 60-year-old man with some dizziness and some lightheadedness after drinking tonight following discharge from the hospital. The patient does have a mild elevation of troponin, and therefore will keep for serial cardiac enzymes. - Lab Data Result diagrams: 03/24/21 00:35 03/24/21 00:35 Lab Results 03/24/21 03/24/21 03/24/21 Range/Units 00:35 00:35 00:35 WBC 9.4 (3.8-10.6) k/uL RBC 4.47 (4.30-5.90) m/uL Hgb 14.0 (13.0-17.5) gm/dL Hct 43.8 (39.0-53.0) % MCV 98.0 (80.0-100.0) fL MCH 31.4 (25.0-35.0) pg MCHC 32.0 (31.0-37.0) g/dL RDW 13.8 (11.5-15.5) % Plt Count 356 (150-450) k/uL MPV 7.4 Neutrophils % (Manual) 60 % Lymphocytes % (Manual) 30 % Monocytes % (Manual) 9 % Eosinophils % (Manual) 1 % Neutrophils # (Manual) 5.64 (1.3-7.7) k/uL Lymphocytes # (Manual) 2.82 (1.0-4.8) k/uL Monocytes # (Manual) 0.85 (0-1.0) k/uL Eosinophils # (Manual) 0.09 (0-0.7) k/uL Nucleated RBCs 0 (0-0) /100 WBC Manual Slide Review Performed RBC Morphology Normal Sodium 129 L (137-145) mmol/L Potassium 3.9 (3.5-5.1) mmol/L Chloride 93 L (98-107) mmol/L Carbon Dioxide 26 (22-30) mmol/L Anion Gap 10 mmol/L BUN 4 L (9-20) mg/dL Creatinine 0.55 L (0.66-1.25) mg/dL Est GFR (CKD-EPI)AfAm >90 (>60 ml/min/1.73 sqM) Est GFR (CKD-EPI)NonAf >90 (>60 ml/min/1.73 sqM) Glucose 97 (74-99) mg/dL Lactic Ac Sepsis Rflx Plasma Lactic Acid Graham 2.3 H* (0.7-2.0) mmol/L Calcium 9.1 (8.4-10.2) mg/dL Total Bilirubin 0.6 (0.2-1.3) mg/dL AST 26 (17-59) U/L ALT 14 (4-49) U/L Alkaline Phosphatase 130 H (38-126) U/L Troponin I (0.000-0.034) ng/mL Total Protein 7.3 (6.3-8.2) g/dL Albumin 3.5 (3.5-5.0) g/dL Serum Alcohol 126 mg/dL 03/24/21 03/24/21 03/24/21 Range/Units 00:35 01:25 04:41 WBC (3.8-10.6) k/uL RBC (4.30-5.90) m/uL Hgb (13.0-17.5) gm/dL Hct (39.0-53.0) % MCV (80.0-100.0) fL MCH (25.0-35.0) pg MCHC (31.0-37.0) g/dL RDW (11.5-15.5) % Plt Count (150-450) k/uL MPV Neutrophils % (Manual) % Lymphocytes % (Manual) % Monocytes % (Manual) % Eosinophils % (Manual) % Neutrophils # (Manual) (1.3-7.7) k/uL Lymphocytes # (Manual) (1.0-4.8) k/uL Monocytes # (Manual) (0-1.0) k/uL Eosinophils # (Manual) (0-0.7) k/uL Nucleated RBCs (0-0) /100 WBC Manual Slide Review RBC Morphology Sodium (137-145) mmol/L Potassium (3.5-5.1) mmol/L Chloride (98-107) mmol/L Carbon Dioxide (22-30) mmol/L Anion Gap mmol/L BUN (9-20) mg/dL Creatinine (0.66-1.25) mg/dL Est GFR (CKD-EPI)AfAm (>60 ml/min/1.73 sqM) Est GFR (CKD-EPI)NonAf (>60 ml/min/1.73 sqM) Glucose (74-99) mg/dL Lactic Ac Sepsis Rflx Y Plasma Lactic Acid Graham 1.7 (0.7-2.0) mmol/L Calcium (8.4-10.2) mg/dL Total Bilirubin (0.2-1.3) mg/dL AST (17-59) U/L ALT (4-49) U/L Alkaline Phosphatase (38-126) U/L Troponin I 0.058 H* (0.000-0.034) ng/mL Total Protein (6.3-8.2) g/dL Albumin (3.5-5.0) g/dL Serum Alcohol mg/dL 03/24/21 Range/Units 04:41 WBC (3.8-10.6) k/uL RBC (4.30-5.90) m/uL Hgb (13.0-17.5) gm/dL Hct (39.0-53.0) % MCV (80.0-100.0) fL MCH (25.0-35.0) pg MCHC (31.0-37.0) g/dL RDW (11.5-15.5) % Plt Count (150-450) k/uL MPV Neutrophils % (Manual) % Lymphocytes % (Manual) % Monocytes % (Manual) % Eosinophils % (Manual) % Neutrophils # (Manual) (1.3-7.7) k/uL Lymphocytes # (Manual) (1.0-4.8) k/uL Monocytes # (Manual) (0-1.0) k/uL Eosinophils # (Manual) (0-0.7) k/uL Nucleated RBCs (0-0) /100 WBC Manual Slide Review RBC Morphology Sodium (137-145) mmol/L Potassium (3.5-5.1) mmol/L Chloride (98-107) mmol/L Carbon Dioxide (22-30) mmol/L Anion Gap mmol/L BUN (9-20) mg/dL Creatinine (0.66-1.25) mg/dL Est GFR (CKD-EPI)AfAm (>60 ml/min/1.73 sqM) Est GFR (CKD-EPI)NonAf (>60 ml/min/1.73 sqM) Glucose (74-99) mg/dL Lactic Ac Sepsis Rflx Plasma Lactic Acid Graham (0.7-2.0) mmol/L Calcium (8.4-10.2) mg/dL Total Bilirubin (0.2-1.3) mg/dL AST (17-59) U/L ALT (4-49) U/L Alkaline Phosphatase (38-126) U/L Troponin I 0.046 H* (0.000-0.034) ng/mL Total Protein (6.3-8.2) g/dL Albumin (3.5-5.0) g/dL Serum Alcohol mg/dL Disposition Clinical Impression: Near syncope, Elevated troponin I level Disposition: ADMITTED IP TO THIS HOSP Condition: Good Is patient prescribed a controlled substance at d/c from ED?: No
[2021-03-24 08:10] VITALS: TEMP 98.8
[2021-03-24] MEDS ORDERED: ACETAMINOPHEN TAB 325 MG TAB PO PRN (08:48)
[2021-03-24] MEDS ORDERED: ALBUTEROL HFA INHALER INHALATION PRN (08:48)
[2021-03-24] MEDS ORDERED: FAMOTIDINE 20 MG TAB PO SCH (09:00)
[2021-03-24] MEDS ORDERED: NYSTATIN 100,000 UNIT/GM POWD 15 GM TOPICAL SCH (09:00)
[2021-03-24] MEDS ORDERED: THIAMINE 100 MG TAB PO SCH (09:00)
[2021-03-24] MEDS ORDERED: CEPHALEXIN 500 MG CAP PO SCH (09:00)
[2021-03-24] MEDS ORDERED: FLUCONAZOLE 100 MG TAB PO SCH (09:00)
[2021-03-24] MEDS ORDERED: METOPROLOL TARTRATE 50 MG TAB PO SCH (09:00)
[2021-03-24] MEDS ORDERED: IPRATROPIUM-ALBUTEROL 3 ML NEB INHALATION PRN (11:26)
[2021-03-24] MEDS ORDERED: methylPREDNISolone SOD SUCCI 125 MG/2 ML VIAL IV STA (11:29)
--- NOTE | 2021-03-24 11:36 | P.HPIM ---
History of Present Illness 6-year-old male was discharged yesterday after he was treated for foot cellulitis and alcohol withdrawal. Patient went home and started drinking alcohol again and he sees his roommate situation is not GERD and he was partying he ended up drinking 1 beer, patient is found to have some alcohol of 126. Patient also had lactic acidosis patient has mildly elevated troponins of 0.058 and 0.046 which is stable at that level. Patient apparently was complaining of for her lightheadedness as today because of which patient was admitted. Not expecting any withdrawals as patient was treated for withdrawals as today. But patient is sharp of breath and has bilateral rhonchi and exam. Patient is having COPD exacerbation. Patient was discharged on Keflex which will be resumed. Patient was started on Keflex for his right lower extremity wounds. REVIEW OF SYSTEMS: CONSTITUTIONAL: No fever, no malaise, no fatigue. HEENT: No recent visual problems or hearing problems. Denied any sore throat. CARDIOVASCULAR: No chest pain, orthopnea, PND, no palpitations, no syncope. PULMONARY: No shortness of breath, no cough, no hemoptysis. GASTROINTESTINAL: No diarrhea, no nausea, no vomiting, no abdominal pain. NEUROLOGICAL: No headaches, no weakness, no numbness. HEMATOLOGICAL: Denies any bleeding or petechiae. GENITOURINARY: Denies any burning micturition, frequency, or urgency. MUSCULOSKELETAL/RHEUMATOLOGICAL: Denies any joint pain, swelling, or any muscle pain. ENDOCRINE: Denies any polyuria or polydipsia. The rest of the 14-point review of systems is negative. PHYSICAL EXAMINATION: GENERAL: The patient is alert and oriented x3, not in any acute distress. Well developed, well nourished. HEENT: Pupils are round and equally reacting to light. EOMI. No scleral icterus. No conjunctival pallor. Normocephalic, atraumatic. No pharyngeal erythema. No thyromegaly. CARDIOVASCULAR: S1 and S2 present. No murmurs, rubs, or gallops. PULMONARY: Chest is clear to auscultation, no wheezing or crackles. ABDOMEN: Soft, nontender, nondistended, normoactive bowel sounds. No palpable organomegaly. MUSCULOSKELETAL: No joint swelling or deformity. EXTREMITIES: No cyanosis, clubbing, or pedal edema. NEUROLOGICAL: Gross neurological examination did not reveal any focal deficits. SKIN: Light is skin breakdown of the right lower extremity right foot webspace infection Assessment and plan -COPD with acute exacerbation: Patient will be given 1 dose of IV Solu-Medrol followed by inhalational treatments and inhaled steroids. -Cellulitis of the right foot for which patient is on Keflex as an outpatient patient had group B strep- agalactiae and gram-negative bacilli from the wound cultures that were obtained during his last hospitalization. -Alchol abuse: Extensive counseling was provided patient can use to drink alcohol in spite of this counseling. -Hyponatremia secondary to beer potomania -Continued nicotine use: Counseling was provided -Mild troponin elevation is no evidence of acute microinfarction x-ray and have an tachycardia rebound, patient will be resumed on metoprolol DVT prophylaxis: Lovenox Past Medical History Past Medical History: Seizure Disorder History of Any Multi-Drug Resistant Organisms: None Reported Additional Past Surgical History / Comment(s): Right leg fracture repair Past Psychological History: No Psychological Hx Reported Smoking Status: Current every day smoker Past Alcohol Use History: Daily Past Drug Use History: None Reported Medications and Allergies Home Medications Medication Instructions Recorded Confirmed Type Albuterol Sulfate [Proair Hfa] 2 puff INHALATION RT-QID PRN 03/20/21 03/24/21 History Metoprolol Tartrate [Lopressor] 100 mg PO BID 03/20/21 03/24/21 History cloNIDine HCL 0.1 mg PO HS 03/20/21 03/24/21 History Acetaminophen Tab [Tylenol] 650 mg PO Q6HR PRN tab 03/23/21 03/24/21 Rx Famotidine [Pepcid] 20 mg PO BID 14 Days #30 tab 03/23/21 03/24/21 Rx Fluconazole [Diflucan] 100 mg PO DAILY 5 Days #5 tab 03/23/21 03/24/21 Rx Thiamine [Vitamin B-1] 100 mg PO BID-W/MEALS #60 tab 03/23/21 03/24/21 Rx Cephalexin [Keflex] 500 mg PO Q6H 03/24/21 03/24/21 History Nystatin 100,000 Unit/gm Powd 1 applic TOPICAL BID 03/24/21 03/24/21 History [Mycostatin Powder] Allergies Allergy/AdvReac Type Severity Reaction Status Date / Time No Known Allergies Allergy Verified 03/24/21 06:51 Physical Exam Vitals: Vital Signs Temp Pulse Resp BP Pulse Ox 03/24/21 08:09 98.8 F 112 H 16 151/93 96 03/24/21 06:52 101 H 18 139/94 95 03/24/21 04:51 115 H 18 148/86 96 03/24/21 03:41 101 H 18 118/76 95 03/24/21 00:57 104 H 18 135/96 96 03/23/21 23:16 98.2 F 62 20 153/87 97 Intake and Output 03/23/21 03/24/21 03/24/21 22:59 06:59 14:59 Other: Weight 66.678 kg Results CBC & Chem 7: 03/24/21 00:35 03/24/21 00:35 Labs: Abnormal Lab Results - Last 24 Hours (Table) 03/24/21 03/24/21 03/24/21 Range/Units 00:35 00:35 00:35 Sodium 129 L (137-145) mmol/L Chloride 93 L (98-107) mmol/L BUN 4 L (9-20) mg/dL Creatinine 0.55 L (0.66-1.25) mg/dL Plasma Lactic Acid Graham 2.3 H* (0.7-2.0) mmol/L Alkaline Phosphatase 130 H (38-126) U/L Troponin I 0.058 H* (0.000-0.034) ng/mL 03/24/21 03/24/21 Range/Units 04:41 07:42 Sodium (137-145) mmol/L Chloride (98-107) mmol/L BUN (9-20) mg/dL Creatinine (0.66-1.25) mg/dL Plasma Lactic Acid Graham (0.7-2.0) mmol/L Alkaline Phosphatase (38-126) U/L Troponin I 0.046 H* 0.037 H* (0.000-0.034) ng/mL
[2021-03-24] MEDS ORDERED: IPRATROPIUM-ALBUTEROL 3 ML NEB INHALATION SCH (12:00)
[2021-03-24 12:34] VITALS: RESP 18
[2021-03-24 12:43] VITALS: BP 155/94; PULSE 90
--- NOTE | 2021-03-24 13:02 | P.DS ---
Providers Date of admission: 03/24/21 05:21 Attending physician: Arnaldo Jones Consults: 03/24/21 05:21 Consult Physician Routine Consulting Provider: Colin Moura Consult Reason/Comments: Near-syncope. Minimally elevated troponin. Do you want consulting provider notified?: Yes Primary care physician: [facility] Course: Patient left AGAINST MEDICAL ADVICE although prescriptions for albuterol and Symbicort was sent to his pharmacy. Patient's wound cultures were reviewed and patient will continue Keflex Patient Condition at Discharge: Good Plan - Discharge Summary New Discharge Prescriptions: New Budesonide-Formot 160-4.5 Mcg [Symbicort 160-4.5 Mcg Inhaler] 2 puff INHALATION BID #10.2 gm Albuterol Inhaler [Ventolin Hfa Inhaler] 2 puff INHALATION RT-QID PRN #18 gm PRN Reason: Shortness Of Breath Or Wheezing No Action Fluconazole [Diflucan] 100 mg PO DAILY 5 Days #5 tab Acetaminophen Tab [Tylenol] 650 mg PO Q6HR PRN tab PRN Reason: Mild Pain Or Fever > 100.5 Cephalexin [Keflex] 500 mg PO Q6H cloNIDine HCL 0.1 mg PO HS Metoprolol Tartrate [Lopressor] 100 mg PO BID Albuterol Sulfate [Proair Hfa] 2 puff INHALATION RT-QID PRN PRN Reason: Shortness Of Breath Famotidine [Pepcid] 20 mg PO BID 14 Days #30 tab Thiamine [Vitamin B-1] 100 mg PO BID-W/MEALS #60 tab Nystatin 100,000 Unit/gm Powd [Mycostatin Powder] 1 applic TOPICAL BID Discharge Medication List Albuterol Sulfate [Proair Hfa] 2 puff INHALATION RT-QID PRN 03/20/21 [History] Metoprolol Tartrate [Lopressor] 100 mg PO BID 03/20/21 [History] cloNIDine HCL 0.1 mg PO HS 03/20/21 [History] Acetaminophen Tab [Tylenol] 650 mg PO Q6HR PRN tab 03/23/21 [Rx] Famotidine [Pepcid] 20 mg PO BID 14 Days #30 tab 03/23/21 [Rx] Fluconazole [Diflucan] 100 mg PO DAILY 5 Days #5 tab 03/23/21 [Rx] Thiamine [Vitamin B-1] 100 mg PO BID-W/MEALS #60 tab 03/23/21 [Rx] Albuterol Inhaler [Ventolin Hfa Inhaler] 2 puff INHALATION RT-QID PRN #18 gm 03/24/21 [Rx] Budesonide-Formot 160-4.5 Mcg [Symbicort 160-4.5 Mcg Inhaler] 2 puff INHALATION BID #10.2 gm 03/24/21 [Rx] Cephalexin [Keflex] 500 mg PO Q6H 03/24/21 [History] Nystatin 100,000 Unit/gm Powd [Mycostatin Powder] 1 applic TOPICAL BID 03/24/21 [History] Follow up Appointment(s)/Referral(s): [facility], [NON-STAFF] - Pina Bello MD [Primary Care Provider] - 1-2 days Discharge Disposition: Left Against Medical Advice
--- NOTE | 2021-03-24 13:08 | P.CRDCN ---
History of Present Illness Consult date: 03/24/21 History of present illness: HISTORY OF PRESENT ILLNESS: This is a 60-year-old male with a past medical history significant for hypertension, alcohol abuse, and wound to right foot. 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 We have been asked to see the patient in consultation for syncope. Patient examined at the bedside. The patient was just admitted to the hospital yesterday secondary to a right foot wound. He was discharged home. The patient began drinking alcohol after he was discharged. He presented back to the hospital with a chief complaint of "stumbling" at home. Patient denies any syncopal episodes at home. He denies chest pain or pressure. Denies SOB. Denies dizziness or lightheadedness. No EKG was obtained at the time of evaluation Laboratory data: WBC 9.4. Hemoglobin 14.0. Platelet count 356. Sodium 129. Potassium 3.9. BUN 4. Creatinine 0.55. Lactic acid 2.3 Repeat 1.7. Troponin 0.058. 0.046. 0.037. Current home cardiac medications include clonidine 0.1 mg at night, metoprolol tartrate 100 mg twice a day REVIEW OF SYSTEMS: At the time of my exam: CONSTITUTIONAL: Denies fever or chills. HEENT: Denies blurred vision, vision changes, or eye pain. Denies hemoptysis CARDIOVASCULAR: Denies chest pain. Denies orthopnea. Denies PND. Denies palpitations RESPIRATORY: Denies shortness of breath. GASTROINTESTINAL: Denies abdominal pain. Denies nausea or vomiting. HEMATOLOGIC: Denies bleeding disorders. GENITOURINARY: Denies any blood in urine. SKIN: Denies pruitis. Denies rash. PHYSICAL EXAM: VITAL SIGNS: Reviewed. GENERAL: Well-developed in no acute distress. HEENT: Head is normocephalic. Pupils are equal, round. Sclerae anicteric. Mucous membranes of the mouth are moist. Neck supple. No JVD or thyromegaly LUNGS: Respirations even and unlabored. Lungs diminished with rhonchi bilaterally. HEART: Tachycardia. Regular rate and rhythm. S1 and S2 heard. ABDOMEN: Soft. Nondistended. Nontender. EXTREMITIES: Normal range of motion. No clubbing or cyanosis. Peripheral pulses intact. No lower extremity edema. Wound to right foot noted. NEUROLOGIC: Awake and alert. Oriented x 3. ASSESSMENT: Syncope, ruled out, patient denies syncopal episode Acute alcohol intoxication Right foot wound Hypertension Sinus tachycardia, secondary to not receiving metoprolol and possible alcohol withdrawal PLAN: Obtain 2-D echo to assess cardiac structure and function Continue home cardiac medications Continue telemetry monitoring Obtain EKG Abstinence from alcohol recommended Further recommendations pending patient's course Nurse practitioner note has been reviewed by physician. Signing provider agrees with the documented findings, assessment, and plan of care. Past Medical History Past Medical History: Seizure Disorder History of Any Multi-Drug Resistant Organisms: None Reported Additional Past Surgical History / Comment(s): Right leg fracture repair Past Psychological History: No Psychological Hx Reported Smoking Status: Current every day smoker Past Alcohol Use History: Daily Past Drug Use History: None Reported Medications and Allergies Home Medications Medication Instructions Recorded Confirmed Type Albuterol Sulfate [Proair Hfa] 2 puff INHALATION RT-QID PRN 03/20/21 03/24/21 History Metoprolol Tartrate [Lopressor] 100 mg PO BID 03/20/21 03/24/21 History cloNIDine HCL 0.1 mg PO HS 03/20/21 03/24/21 History Acetaminophen Tab [Tylenol] 650 mg PO Q6HR PRN tab 03/23/21 03/24/21 Rx Famotidine [Pepcid] 20 mg PO BID 14 Days #30 tab 03/23/21 03/24/21 Rx Fluconazole [Diflucan] 100 mg PO DAILY 5 Days #5 tab 03/23/21 03/24/21 Rx Thiamine [Vitamin B-1] 100 mg PO BID-W/MEALS #60 tab 03/23/21 03/24/21 Rx Albuterol Inhaler [Ventolin Hfa 2 puff INHALATION RT-QID PRN #18 gm 03/24/21 Rx Inhaler] Budesonide-Formot 160-4.5 Mcg 2 puff INHALATION BID #10.2 gm 03/24/21 Rx [Symbicort 160-4.5 Mcg Inhaler] Cephalexin [Keflex] 500 mg PO Q6H 03/24/21 03/24/21 History Nystatin 100,000 Unit/gm Powd 1 applic TOPICAL BID 03/24/21 03/24/21 History [Mycostatin Powder] Allergies Allergy/AdvReac Type Severity Reaction Status Date / Time No Known Allergies Allergy Verified 03/24/21 06:51 Physical Exam Vitals: Vital Signs Temp Pulse Resp BP Pulse Ox 03/24/21 12:41 98.8 F 90 18 155/94 97 03/24/21 12:00 83 18 151/93 97 03/24/21 11:40 18 03/24/21 08:09 98.8 F 112 H 16 151/93 96 03/24/21 06:52 101 H 18 139/94 95 03/24/21 04:51 115 H 18 148/86 96 03/24/21 03:41 101 H 18 118/76 95 03/24/21 00:57 104 H 18 135/96 96 03/23/21 23:16 98.2 F 62 20 153/87 97 Intake and Output 03/23/21 03/24/21 03/24/21 22:59 06:59 14:59 Other: Weight 66.678 kg Results 03/24/21 00:35 03/24/21 00:35 Cardiac Enzymes 03/24/21 03/24/21 03/24/21 Range/Units 00:35 00:35 04:41 AST 26 (17-59) U/L Troponin I 0.058 H* 0.046 H* (0.000-0.034) ng/mL 03/24/21 Range/Units 07:42 AST (17-59) U/L Troponin I 0.037 H* (0.000-0.034) ng/mL CBC 03/24/21 Range/Units 00:35 WBC 9.4 (3.8-10.6) k/uL RBC 4.47 (4.30-5.90) m/uL Hgb 14.0 (13.0-17.5) gm/dL Hct 43.8 (39.0-53.0) % Plt Count 356 (150-450) k/uL Comprehensive Metabolic Panel 03/24/21 Range/Units 00:35 Sodium 129 L (137-145) mmol/L Potassium 3.9 (3.5-5.1) mmol/L Chloride 93 L (98-107) mmol/L Carbon Dioxide 26 (22-30) mmol/L BUN 4 L (9-20) mg/dL Creatinine 0.55 L (0.66-1.25) mg/dL Glucose 97 (74-99) mg/dL Calcium 9.1 (8.4-10.2) mg/dL AST 26 (17-59) U/L ALT 14 (4-49) U/L Alkaline Phosphatase 130 H (38-126) U/L Total Protein 7.3 (6.3-8.2) g/dL Albumin 3.5 (3.5-5.0) g/dL Intake and Output 03/23/21 03/24/21 03/24/21 22:59 06:59 14:59 Other: Weight 66.678 kg 03/24/21 00:35 03/24/21 00:35
[2021-03-24] MEDS ORDERED: BUDESONIDE 0.5 MG/2 ML NEBU INHALATION SCH (20:00)
[2021-03-25] MEDS ORDERED: ASPIRIN 325 MG TAB PO SCH (09:00)
[2021-03-25] MEDS ORDERED: ASPIRIN 81 MG PO SCH (09:00)
== END 2021-03-24 12:50 | disposition left against medical advice (07) ==
LOC: EC 23:12 → 3SCARD 03-24 05:21
PROVIDERS: ADMIT Hospitalist; ATTEND Hospitalist
DX: R55 Syncope and collapse (principal); J44.1 Chronic obstructive pulmonary disease with (acute) exacerbation; F10.129 Alcohol abuse with intoxication, unspecified; E87.2 Acidosis; R79.89 Other specified abnormal findings of blood chemistry; E87.1 Hypo-osmolality and hyponatremia; L03.115 Cellulitis of right lower limb; B95.1 Streptococcus, group B, as the cause of diseases classified elsewhere; Y90.6 Blood alcohol level of 120-199 mg/100 ml; R00.0 Tachycardia, unspecified; T44.7X6A Underdosing of beta-adrenoreceptor antagonists, initial encounter; I10 Essential (primary) hypertension; G40.909 Epilepsy, unspecified, not intractable, without status epilepticus; F17.200 Nicotine dependence, unspecified, uncomplicated; R26.2 Difficulty in walking, not elsewhere classified; Z20.822 Contact with and (suspected) exposure to COVID-19; Z79.899 Other long term (current) drug therapy; Z71.41 Alcohol abuse counseling and surveillance of alcoholic; Z71.6 Tobacco abuse counseling; Z53.29 Procedure and treatment not carried out because of patient's decision for other reasons; W01.0XXA Fall on same level from slipping, tripping and stumbling without subsequent striking against object, initial encounter
CPT/HCPCS: 96361; 96372; 96374; 99285; 36415; 93005; 93306; 80053; 83605; 84484; 85025; 87635; G0378; G0480; J2930; J1650; 80320

== ENCOUNTER 2021-06-08 09:08 | Emergency (ER) | payer OTHER ==
[2021-06-08 09:23] VITALS: RESP 20; TEMP 98.2
--- NOTE | 2021-06-08 09:52 | ED ---
General Adult HPI - General Chief complaint: Fall Stated complaint: Seizure Time Seen by Provider: 06/08/21 09:20 Source: patient, EMS, RN notes reviewed, old records reviewed Mode of arrival: EMS Limitations: no limitations - History of Present Illness Initial comments: 61-year-old male presents for evaluation after suspected seizure and fall. Patient states he has seizure disorder he is on antiepileptic medication. He states he's been compliant with these medication. He states he has a seizure about every 3 months. Prior to my evaluation the patient requested discharge stating that he did not want further evaluation treatment. He is alert and oriented at the time my evaluation without complaints. He states this happens to him quite frequently and he does not want any further testing. He did have head injury with occipital hematoma. No complaints of headache. No focal numbness or weakness complaints. - Related Data Home Medications Medication Instructions Recorded Confirmed Albuterol Sulfate [Proair Hfa] 2 puff INHALATION RT-QID PRN 03/20/21 03/24/21 Metoprolol Tartrate [Lopressor] 100 mg PO BID 03/20/21 03/24/21 cloNIDine HCL 0.1 mg PO HS 03/20/21 03/24/21 Cephalexin [Keflex] 500 mg PO Q6H 03/24/21 03/24/21 Nystatin 100,000 Unit/gm Powd 1 applic TOPICAL BID 03/24/21 03/24/21 [Mycostatin Powder] Previous Rx's Medication Instructions Recorded Acetaminophen Tab [Tylenol] 650 mg PO Q6HR PRN tab 03/23/21 Famotidine [Pepcid] 20 mg PO BID 14 Days #30 tab 03/23/21 Fluconazole [Diflucan] 100 mg PO DAILY 5 Days #5 tab 03/23/21 Thiamine [Vitamin B-1] 100 mg PO BID-W/MEALS #60 tab 03/23/21 Albuterol Inhaler [Ventolin Hfa 2 puff INHALATION RT-QID PRN #18 gm 03/24/21 Inhaler] Budesonide-Formot 160-4.5 Mcg 2 puff INHALATION BID #10.2 gm 03/24/21 [Symbicort 160-4.5 Mcg Inhaler] Allergies Allergy/AdvReac Type Severity Reaction Status Date / Time No Known Allergies Allergy Verified 03/24/21 06:51 Review of Systems ROS Statement: Those systems with pertinent positive or pertinent negative responses have been documented in the HPI. ROS Other: All systems not noted in ROS Statement are negative. Past Medical History Past Medical History: Seizure Disorder History of Any Multi-Drug Resistant Organisms: None Reported Additional Past Surgical History / Comment(s): Right leg fracture repair Past Psychological History: No Psychological Hx Reported Smoking Status: Current every day smoker Past Alcohol Use History: Daily Past Drug Use History: Marijuana General Exam General appearance: alert, in no apparent distress Head exam: Present: normocephalic, other (Right occipital hematoma without laceration) Eye exam: Present: normal appearance, PERRL Neck exam: Present: normal inspection, full ROM. Absent: tenderness, meningismus Cardiovascular Exam: Present: regular rate, normal rhythm GI/Abdominal exam: Present: soft. Absent: distended, tenderness, guarding Extremities exam: Present: normal inspection, normal capillary refill. Absent: calf tenderness Neurological exam: Present: alert, oriented X3, CN II-XII intact. Absent: motor sensory deficit Psychiatric exam: Present: normal affect, normal mood Skin exam: Present: warm, dry, intact. Absent: cyanosis, diaphoretic Course Vital Signs 06/08/21 09:15 Temperature 98.2 F Pulse Rate 81 Respiratory 20 Rate Blood Pressure 180/114 O2 Sat by Pulse 94 L Oximetry Medical Decision Making - Medical Decision Making 61-year-old male with suspected seizure, head trauma. Patient does agree to head CT but does not want any other testing is eager for discharge prior to my evaluation. He has a nonfocal neurologic exam. He is hypertensive with otherwise stable vitals. Head CT is performed negative for intracranial hemorrhage or mass effect. Patient eager for discharge. Disposition Clinical Impression: Fall, Concussion, Seizure Disposition: HOME SELF-CARE Condition: Fair Instructions (If sedation given, give patient instructions): Concussion (ED), Recurrent Seizures in Adults (ED) Is patient prescribed a controlled substance at d/c from ED?: No Referrals: Pina Bello MD [Primary Care Provider] - 1-2 days Time of Disposition: 10:34
--- NOTE | 2021-06-08 10:15 | CT ---
EXAMINATION TYPE: CT brain cspine wo con DATE OF EXAM: 06/08/2021 COMPARISON: CT dated 10/31/2019 HISTORY: Seizure today. CT DLP: 1220.4 mGycm Automated exposure control for dose reduction was used. TECHNIQUE: CT scan of the head and cervical spine are performed without contrast. FINDINGS: Brain: Brain volume loss changes more than expected for the patient's age. Suspected bilateral cerebral whit e matter mild chronic microvascular ischemic changes. Arterial atherosclerotic calcifications. No acu te intracranial hemorrhage or gross acute cortical infarct. No midline shift or herniation. Unremarkable basal cisterns, sella and CP angles. No gross space-occu pying lesion, vasogenic edema or mass effect. Unremarkable orbits. Chronic inflammatory changes of th e maxillary sinuses with mucosal thickening of the right sphenoid sinus. Clear mastoid air cells. Ost eopenia. Chronic fracture of the left zygomatic arch. Cervical spine is visualized in its entirety from C1 through upper thoracic levels and demonstrates s atisfactory alignment without evidence of acute fracture or dislocation. Prevertebral soft tissue ap pears within normal limits. The C1-C2 articulation is unremarkable. Osteopenia. Degenerative changes of the cervical spine. Arterial atherosclerotic calcification. No paraspinal lesion. IMPRESSION: 1. There is no acute fracture or dislocation evident in the cervical spine. 2. No acute intracranial hemorrhage, mass effect or gross space-occupying lesion. Incidental findings as described above.
[2021-06-08 10:44] VITALS: BP 177/103; PULSE 75
== END 2021-06-08 10:38 | disposition home or self-care (01) ==
LOC: EC 09:08
DX: S06.0X0A Concussion without loss of consciousness, initial encounter (principal); F17.200 Nicotine dependence, unspecified, uncomplicated; F12.90 Cannabis use, unspecified, uncomplicated; W18.30XA Fall on same level, unspecified, initial encounter
CPT/HCPCS: 70450; 72125; 99285

== ENCOUNTER 2021-06-08 11:27 | Inpatient (IN) | payer OTHER ==
[2021-06-08] MEDS ORDERED: LORazepam 2 MG/ML INJ IV STA ×5 (11:29→13:41)
[2021-06-08] MEDS ORDERED: SODIUM CHLORIDE 0.9% 500 ML 500 ML IV STA (11:29)
--- NOTE | 2021-06-08 11:58 | ED ---
General Adult HPI - General Chief complaint: Seizure Stated complaint: Seizure Time Seen by Provider: 06/08/21 11:28 Source: EMS, RN notes reviewed, old records reviewed Mode of arrival: EMS Limitations: altered mental status (Postictal) - History of Present Illness Initial comments: 61-year-old male presents for evaluation after seizure. Patient was discharged by myself from this institution after seizure which occurred this morning. At that time the patient was alert and oriented and requested immediate discharge. Head CT was performed without acute abnormality. Patient had gone home and shortly after arrival he had a repeat seizure lasting approximately 2 minutes. There was no associated trauma. Patient is postictal upon arrival alert and oriented 1. - Related Data Home Medications Medication Instructions Recorded Confirmed Metoprolol Tartrate [Lopressor] 100 mg PO BID 03/20/21 06/08/21 cloNIDine HCL [Catapres] 0.1 mg PO HS 06/08/21 06/08/21 cloNIDine HCL [Catapres] 0.2 mg PO QAM 06/08/21 06/08/21 lisinopriL [Zestril] 5 mg PO DAILY 06/08/21 06/08/21 Allergies Allergy/AdvReac Type Severity Reaction Status Date / Time No Known Allergies Allergy Verified 06/08/21 12:35 Review of Systems ROS Statement: Those systems with pertinent positive or pertinent negative responses have been documented in the HPI. ROS Other: All systems not noted in ROS Statement are negative. Past Medical History Past Medical History: Seizure Disorder History of Any Multi-Drug Resistant Organisms: None Reported Additional Past Surgical History / Comment(s): Right leg fracture repair Past Psychological History: No Psychological Hx Reported Smoking Status: Current every day smoker Past Alcohol Use History: Daily Past Drug Use History: Marijuana General Exam General appearance: alert, in no apparent distress Head exam: Present: normocephalic, other (Right occipital hematoma unchanged from prior) Eye exam: Present: normal appearance, PERRL Neck exam: Present: normal inspection. Absent: tenderness, meningismus Respiratory exam: Present: normal lung sounds bilaterally. Absent: respiratory distress, wheezes Cardiovascular Exam: Present: regular rate, normal rhythm GI/Abdominal exam: Present: soft. Absent: distended, tenderness Extremities exam: Present: normal inspection, normal capillary refill. Absent: pedal edema Neurological exam: Present: alert, CN II-XII intact. Absent: oriented X3, motor sensory deficit Skin exam: Present: warm, dry Course Vital Signs 06/08/21 06/08/21 06/08/21 11:29 12:12 13:00 Temperature 98 F Pulse Rate 92 94 130 H Respiratory 18 18 20 Rate Blood Pressure 175/98 186/108 163/107 O2 Sat by Pulse 96 94 L 98 Oximetry EKG Findings - EKG Comments: EKG Findings:: EKG: Sinus rhythm, right bundle branch block, rate of 87, [place] interval 177, QRS duration 126, QTC [address] segment elevation. Procedures - Intubation Sedative: Versed Mg Given: 5 Paralytic: Succinylcholine Mg Given: 50 Laryngoscope: Casey Size: 4 ET Tube Size: 7.5 ET Tube Uncuffed: No Tube Secured Depth (cm): 23 Tube Secured Location: lips Tube Placement Confirmation: visualized tube passing through cords, equal breath sounds bilaterally, no breath sounds over epigastrium, confirmation by capnometry Patient Tolerated Procedure: well Intubation Complications: none Medical Decision Making - Medical Decision Making 61-year-old male with recurrent seizure patient states he is on seizure medication but is unable to tell me what medication he takes. Patient had head CT with the first episode today which was associated with trauma this was negative for traumatic injury or acute findings. He has a mild leukocytosis likely reactive, sodium 1:30. He did admit to drinking approximately 3 or 4 beers daily. This may be alcohol withdrawal seizure. He's placed on Ativan ac cording to CIWA scale. He is also given 1500 mg of Keppra in the emergency department. Admitted to internal medicine, case discussed with Dr. Jones who will admit. Patient did continue to have seizure activity in the emergency department and required intubation for airway protection. Case discussed with the vice president medical affairs. - Lab Data Result diagrams: 06/08/21 11:52 06/08/21 11:52 Lab Results 06/08/21 06/08/21 Range/Units 11:52 11:52 WBC 13.6 H (3.8-10.6) k/uL RBC 4.72 (4.30-5.90) m/uL Hgb 13.7 (13.0-17.5) gm/dL Hct 44.0 (39.0-53.0) % MCV 93.3 (80.0-100.0) fL MCH 28.9 (25.0-35.0) pg MCHC 31.0 (31.0-37.0) g/dL RDW 14.1 (11.5-15.5) % Plt Count 452 H (150-450) k/uL MPV 7.2 Neutrophils % 76 % Lymphocytes % 15 % Monocytes % 6 % Eosinophils % 1 % Basophils % 1 % Neutrophils # 10.3 H (1.3-7.7) k/uL Lymphocytes # 2.0 (1.0-4.8) k/uL Monocytes # 0.8 (0-1.0) k/uL Eosinophils # 0.2 (0-0.7) k/uL Basophils # 0.1 (0-0.2) k/uL Sodium 130 L (137-145) mmol/L Potassium 4.9 (3.5-5.1) mmol/L Chloride 97 L (98-107) mmol/L Carbon Dioxide 23 (22-30) mmol/L Anion Gap 10 mmol/L BUN 6 L (9-20) mg/dL Creatinine 0.55 L (0.66-1.25) mg/dL Est GFR (CKD-EPI)AfAm >90 (>60 ml/min/1.73 sqM) Est GFR (CKD-EPI)NonAf >90 (>60 ml/min/1.73 sqM) Glucose 159 H (74-99) mg/dL Calcium 9.0 (8.4-10.2) mg/dL Magnesium 1.7 (1.6-2.3) mg/dL Total Bilirubin 0.6 (0.2-1.3) mg/dL AST 48 (17-59) U/L ALT 33 (4-49) U/L Alkaline Phosphatase 133 H (38-126) U/L Total Protein 7.6 (6.3-8.2) g/dL Albumin 3.6 (3.5-5.0) g/dL Critical Care Time Critical Care Time: Yes Total Critical Care Time: 35 Disposition Clinical Impression: Seizure, Hyponatremia, Status epilepticus, Respiratory failure Disposition: ADMITTED IP TO THIS [facility] Condition: Stable Is patient prescribed a controlled substance at d/c from ED?: No Time of Disposition: 14:17
[2021-06-08 12:00] LABS: Basophils # (A) 0.1 k/uL (0-0.2); Basophils % (A) 1 %; Eosinophils # (A) 0.2 k/uL (0-0.7); Eosinophils % (A) 1 %; HGB 13.7 gm/dL (13.0-17.5); Lymphocytes % (A) 15 %; MCH 28.9 pg (25.0-35.0); MCV 93.3 fL (80.0-100.0); Mean Platelet Volume 7.2; Monocytes # (A) 0.8 k/uL (0-1.0); Monocytes % (A) 6 %; Neutrophils # (A) 10.3 k/uL (1.3-7.7); Neutrophils % (A) 76 %; Platelet Count 452 k/uL (150-450); RBC 4.72 m/uL (4.30-5.90); RDW 14.1 % (11.5-15.5); WBC 13.6 k/uL (3.8-10.6)
[2021-06-08 12:23] LABS: ALT 33 U/L (4-49); AST 48 U/L (17-59); African American GFR (CKD) >90 (>60 ml/min/1.73 sqM); Albumin 3.6 g/dL (3.5-5.0); Alkaline Phosphatase 133 U/L (38-126); Anion Gap 10 mmol/L; Blood Urea Nitrogen 6 mg/dL (9-20); Carbon Dioxide 23 mmol/L (22-30); Chloride 97 mmol/L (98-107); Glucose 159 mg/dL (74-99); Magnesium 1.7 mg/dL (1.6-2.3); Non-African American GFR(CKD) >90 (>60 ml/min/1.73 sqM); Potassium 4.9 mmol/L (3.5-5.1); Sodium 130 mmol/L (137-145); Total Bilirubin 0.6 mg/dL (0.2-1.3); Total Protein 7.6 g/dL (6.3-8.2)
[2021-06-08] MEDS ORDERED: THIAMINE 100 MG/ML 2 ML VIAL IM STA (12:54)
[2021-06-08] MEDS ORDERED: LORazepam 2 MG/ML INJ IV PRN ×2 (12:54)
[2021-06-08] MEDS ORDERED: levETIRAcetam IV 1,500 MG in SALINE 1 100ML.BAG IVPB STA (13:00)
[2021-06-08] MEDS ORDERED: NALOXONE 0.4 MG/ML 1 ML VIAL IV PRN (13:00)
[2021-06-08] MEDS ORDERED: SODIUM CHLORIDE 0.9% 1,000 ML IV SCH (13:15)
[2021-06-08] MEDS ORDERED: PHENYTOIN SODIUM INJ 1,200 MG in SODIUM CHLORIDE 0.9% 100 ML IVPB STA (13:53)
[2021-06-08] MEDS ORDERED: MIDAZOLAM 1 MG/ML 5 ML VIAL IV STA (14:05)
[2021-06-08] MEDS ORDERED: SUCCINYLCHOLINE CHLORIDE VIAL 200 MG/10 ML VIAL IV STA (14:05)
--- NOTE | 2021-06-08 14:24 | P.CNNES ---
History of Present Illness Consult date: 06/08/21 Requesting physician: Blaise Ware Reason for Consult: seizure History of Present Illness: This is a 61-year-old woman with history of seizure, alcohol use, alcohol withdrawal who presented emergency department on 06/08/2021 for seizure. History was obtained from medical record and the ED physician. Since the p atient came earlier today for seizure-like activity in the morning. Patient is on any antiepileptic. It seems the patient has a seizure every 3 months that he notified that the ED team. And the patient had a head trauma as a result of the seizure. Patient had CT of the head which was negative for intracranial hemorrhage or mass effect. Patient was alert oriented and had no focal deficits. Patient the requested that to be discharged home per the ED as a result he was discharged home. Seems to the patient the came back to our facility today again around 1127 for a recurrent seizure episode. This seizure lasted for 2 minutes and the patient was in post ictal state and per the ED team was only alert oriented 1. He has received 3 mg of Ativan and Keppra 1500mg IV once By ED team. Upon seeing the patient patient was not responding but only open eyes but what not verbalizing. Some other workup in the hospital consisted of: Initial vital signs is a blood pressure 175/98, heart rate of 92, respiratory of 18, temperature of 98.0 Fahrenheit oral and pulse ox 96% room air on this visit. White blood cells 13.6 slightly neutrophilic and a platelet is 152 otherwise the rest of CBC with differential is unremarkable The glucose is 159, alkaline phosphatase is 133, BUN 6 and creatinine 0.55, sodium is 130. CT of the head earlier today is reported as there is no acute intracranial he morrhage, mass effect or gross space occupying lesion. I personally reviewed the CT of the head and I agree with the report CT cervical spine earlier today was reported as there is no acute fracture or dislocation evident in the cervical spine. It seems that the patient had a serum alcohol level on 03/24/2021 of 126. Review of Systems Review of system is limited but the parent positive and negative as per HPI Past Medical History Past Medical History: Seizure Disorder History of Any Multi-Drug Resistant Organisms: None Reported Additional Past Surgical History / Comment(s): Right leg fracture repair Past Psychological History: No Psychological Hx Reported Smoking Status: Current every day smoker Past Alcohol Use History: Daily Past Drug Use History: Marijuana Medications and Allergies Home Medications Medication Instructions Recorded Confirmed Type Metoprolol Tartrate [Lopressor] 100 mg PO BID 03/20/21 06/08/21 History cloNIDine HCL [Catapres] 0.1 mg PO HS 06/08/21 06/08/21 History cloNIDine HCL [Catapres] 0.2 mg PO QAM 06/08/21 06/08/21 History lisinopriL [Zestril] 5 mg PO DAILY 06/08/21 06/08/21 History Allergies Allergy/AdvReac Type Severity Reaction Status Date / Time No Known Allergies Allergy Verified 06/08/21 12:35 Physical Examination - Vital Signs Vital Signs: Vital Signs Temp Pulse Resp BP Pulse Ox 06/08/21 13:00 130 H 20 163/107 98 06/08/21 12:12 94 18 186/108 94 L 06/08/21 11:29 98 F 92 18 175/98 96 Intake and Output 06/07/21 06/08/21 06/08/21 22:59 06:59 14:59 Other: Weight 68.039 kg GENERAL: The patient is lying in bed and did not seem in acute distress. CHEST: The heart rate is regular rate rhythm. No murmurs to auscultation. LUNG: Clear to auscultation bilaterally no wheezing noted throughout. Not labored breathing. ABDOMEN/GI: Bowel sounds present in all 4 quadrants. No tenderness to palpation throughout. NEUROLOGICAL: Very limited because of his condition. Higher mental function: The patient is severely encephalopathy and appears clinically seizuring/post-icta state. He would only open his eye but not verbalizing or following commands. Cranial nerves: Upon him opening eye no gaze prefrence but at time his eyes were roving. No facial weakness. He was foaming around the mouth. Otherwise rest are limited. Motor: Gait is deferred because of his condition. The strength is hard to assess but it appears he has some shaking when touching his nose either on right or left hand but tonic stated. Normal bulk Cerebellum: Could not assess. Sensation: Could not assess. Reflexes (right/left): 2+ throughout. Plantars are mute bilaterally. Results - Laboratory Findings CBC and BMP: 06/08/21 11:52 06/08/21 11:52 Abnormal Lab Findings: Abnormal Labs 06/08/21 06/08/21 11:52 11:52 WBC 13.6 H Plt Count 452 H Neutrophils # 10.3 H Sodium 130 L Chloride 97 L BUN 6 L Creatinine 0.55 L Glucose 159 H Alkaline Phosphatase 133 H Assessment and Plan Assessment: Status epilepticus History of seizures and unknown if it's due to purely alcohol withdrawal or in addition has primary seizure activity. History of alcohol use patient had alcohol level of 126 on February 2021 History of alcohol withdrawal Plan: I gave patient an additional 2 mg of Ativan as well as I am loaded the patient with IV Dilantin of 1200mg once. I started the patient on Keppra at thousand milligram IV every 12 hours Ordered an EEG. I notified the commercial tire service technician. We'll get an MRI of the brain with and without seizure protocol once the patient is more stable. Every hour neuro checks Seizure precautions seizure pads I ordered a urine drug screen and alcohol level as well I started the patient on IV thiamine 100 mg daily Started the patient on Ativan 1 mg every 4 hours PRN for seizure Patient is on CIWA protocol and will defer management to primary team. Notified the ED team if the patient continues to have seizure within 10 minutes to intubate the patient. Recommend the patient to be the admitted to the ICU. The plan was discussed with the patient ED physician. Thank you for the consultation. Chin Ryao M.D. Neuro-hospitalist Time with Patient: Greater than 30
[2021-06-08] MEDS ORDERED: fentaNYL (PF) 50 MCG/ML 2 ML AMP IVP PRN (14:27)
[2021-06-08] MEDS: LORazepam 2 MG/ML INJ IV PRN ×2 (14:29→16:32)
--- NOTE | 2021-06-08 14:31 | XR ---
EXAMINATION TYPE: XR chest 1V portable DATE OF EXAM: 06/08/2021 COMPARISON: 06/14/2016 INDICATION: Intubation difficulty breathing TECHNIQUE: Single frontal view of the chest is obtained. FINDINGS: The heart size is normal. The pulmonary vasculature is normal. Mild diffuse increased lung markings are present bilaterally. This is changed from comparison Endotracheal tube tip 2.6 cm above the armani. IMPRESSION: 1. Mild increased central lung markings bilaterally are nonspecific. Correlate for infectious etiolog y. Underlying masses could be considered. Follow-up to clearing is recommended.
[2021-06-08] MEDS: SODIUM CHLORIDE 0.9% 1,000 ML IV SCH (14:53)
[2021-06-08] MEDS ORDERED: MIDAZOLAM HCL 50 MG in SODIUM CHLORIDE 0.9% 40 ML IV SCH (15:00)
[2021-06-08] MEDS ORDERED: NYSTATIN 100,000UNIT/GM CREAM 30 GM TUBE TOPICAL PRN (15:16)
[2021-06-08 16:03] LABS: Cocaine Screen,Urine Not Detected (NotDetected); Phencyclidine Screen,Urine Not Detected (NotDetected); Urn Cannabinoid Scrn Detected (NotDetected)
[2021-06-08 16:04] LABS: Amphetamine Screen,Urine Not Detected (NotDetected); Barbiturate Screen,Urine Not Detected (NotDetected); Benzodiazepines Screen,Urine Detected (NotDetected); Methadone Screen, Urine Not Detected (NotDetected); Opiate Screen,Urine Not Detected (NotDetected); Oxycodone Screen, Urine Not Detected (NotDetected); Tricyclic Antidepressant,Urine Not Detected (NotDetected)
[2021-06-08 16:23] LABS: ABG Base Excess -2.9 mmol/L; ABG HCO3 24 mmol/L (21-25); ABG Oxygen Saturation 99.8 % (94-97); ABG PCO2 54 mmHg (35-45); ABG PH 7.26 (7.35-7.45); ABG PO2 399 mmHg (83-108); ABG TCO2 26 mmol/L (19-24); Allen Test Performed? Yes
--- NOTE | 2021-06-08 17:06 | XR ---
EXAMINATION TYPE: XR chest 1V portable DATE OF EXAM: 06/08/2021 COMPARISON: Today HISTORY: Tube placement TECHNIQUE: FINDINGS: There is nasogastric tube and the tip is below the diaphragm well into the stomach. Tip is not included on the exam. The endotracheal tube is 2.5 cm from the armani. There is mild pulmonary va scular congestion. There is slight blunting of the costophrenic angles. There are chest leads. IMPRESSION: Mild congestion and small pleural effusions without change. Mild heart failure is possibl e.
[2021-06-08 17:44] LABS: Glucose,Whole Blood 178 mg/dL (75-99)
--- NOTE | 2021-06-08 18:00 | EEG ---
ELECTROENCEPHALOGRAM REPORT DATE OF SERVICE: 06/08/2021. CLINICAL HISTORY: This is a 61-year-old gentleman with reported history of seizures who presented to the emergency department for seizures with prolonged postictal state. It was felt that the patient was in clinical status epilepticus and was intubated. The video EEG is obtained to evaluate for seizure epileptiform activity. Relevant medication: Ativan, Keppra, Dilantin, IV propofol and IV versed drip. EEG TYPE: A routine 21-channel EEG is performed with video using the 10/20 electrode system. DESCRIPTION: The patient is intubated on a ventilator. The background is diffusely suppressed throughout the entire study. Otherwise there are some diffuse myogenic artifacts seen. There is no focal slowing. Interictal and ictal is none seen. ACTIVATION PROCEDURE: Photic stimulation and hyperventilation are not performed. CLINICAL INTERPRETATION: This is an abnormal routine EEG. The background is diffusely suppressed due to medication effect (IV Propofol, Versed, Ativan). The study is consistent with severe encephalopathy. Otherwise there is no focal slowing, epileptiform discharge or seizure on the EEG. Clinical correlation is recommended. MMODL / IJN: [id number] / OSMIN
[2021-06-08] MEDS: FLUCONAZOLE 100 MG TAB PO SCH (18:13)
[2021-06-08] MEDS ORDERED: THIAMINE 100 MG TAB PO SCH (18:30)
--- NOTE | 2021-06-08 18:30 | HP ---
HISTORY AND PHYSICAL DATE OF SERVICE: 06/08/2021 CHIEF COMPLAINT: Seizures. HISTORY OF PRESENT ILLNESS: This 61-year-old gentleman with past medical history of alcohol use and nicotine dependence, history of seizures, presented to [facility] initially with seizures. Patient apparently was adamant to go home. Patient was discharged and subsequently came back with seizures which went into status and the patient mechanically intubated and monitored; to be transferred to the ICU at this time. The patient is currently on mechanical ventilation, 100% FIO2 and saturating 100%. A detailed history could not be taken from the patient because the patient is mechanically ventilated and sedated. Most of the history is taken from my discussion with staff, review of the chart as well as discussion with the ER physician. The most recent admission was in February of this year, which I reviewed. It was for COPD, but the patient left against medical advice. The patient had skin lesions in the scrotum and right foot also. PAST MEDICAL HISTORY: History of EtOH, nicotine dependence, seizure disorder. HOME MEDICATIONS: Reviewed. They include Zestril. Doses and other medications are reviewed. ALLERGIES: NONE. Family history, social history, review of systems could not be taken; the patient is mechanically ventilated and sedated. PHYSICAL EXAMINATION: On mechanical ventilation. Vent settings are noted. Pulse 120, blood pressure 113/90, respiration 22. HEENT: Conjunctivae normal. NECK: No jugular venous distention. CARDIOVASCULAR: S1, S2 muffled. RESPIRATION: Breath sounds diminished at the bases. A few scattered rhonchi and crackles. ABDOMEN: Soft, nontender. No mass palpable. LEGS: No edema. No swelling. Nervous system could not be examined completely. SKIN: No ulcer, rash, bleeding. JOINTS: No active deforming arthropathy. LABS: Reviewed. Sodium . Other labs are reviewed. ASSESSMENT: 1. Acute seizure disorder as well as status epilepticus with hypoxic respiratory failure, on mechanical ventilation. 2. Rule out delirium tremens. 3. Hyponatremia. 4. History of ETOH. 5. History of chronic obstructive pulmonary disease. 6. Right leg cellulitis. RECOMMENDATIONS AND DISCUSSION: In this 61-year-old gentleman who presented with multiple complex medical issues, we will monitor the patient closely, continue to monitor. Symptomatic treatment. Otherwise, mechanical ventilation, [facility] protocol. Consult Dr. Carlson for ICU management. Psychiatric consultation. Overall prognosis guarded because of multiple complex medical conditions. Further recommendations to follow. children's service worker to evaluate the home situation and arrange for any alcohol rehab plans once the patient improves. Otherwise, currently the patient is extremely sick. See orders for further details. MMODL / IJN: [id number] / MTDD
[2021-06-08] MEDS: HEPARIN SODIUM,PORCINE/PF 5,000 UNIT/0.5 ML SYRINGE SQ SCH (20:01)
[2021-06-08] MEDS: levETIRAcetam IV 1,000 MG in SALINE 1 100ML.BAG IVPB SCH (20:01)
[2021-06-08] MEDS: NOREPINEPHRINE 4 MG in SODIUM CHLORIDE 0.9% 250 ML IV SCH (20:05)
[2021-06-08] MEDS ORDERED: IPRATROPIUM-ALBUTEROL 3 ML NEB INHALATION PRN (20:09)
[2021-06-08] MEDS: CHLORHEXIDINE GLUCONATE 15 ML CUP MUCOUS MEM SCH (21:08)
[2021-06-08] MEDS ORDERED: MIDAZOLAM HCL 200 MG in SODIUM CHLORIDE 0.9% 60 ML IV SCH (22:30)
[2021-06-09 00:01] LABS: Glucose,Whole Blood 141 mg/dL (75-99)
[2021-06-09] MEDS: SODIUM CHLORIDE 0.9% 1,000 ML IV SCH ×3 (00:11→20:54)
[2021-06-09] MEDS: IPRATROPIUM-ALBUTEROL 3 ML NEB INHALATION SCH ×7 (01:42→23:58)
[2021-06-09] MEDS: NOREPINEPHRINE 4 MG in SODIUM CHLORIDE 0.9% 250 ML IV SCH (04:35)
[2021-06-09 05:53] LABS: ABG Base Excess -1.7 mmol/L; ABG HCO3 24 mmol/L (21-25); ABG Oxygen Saturation 99.5 % (94-97); ABG PCO2 43 mmHg (35-45); ABG PH 7.35 (7.35-7.45); ABG PO2 166 mmHg (83-108); ABG TCO2 25 mmol/L (19-24); Allen Test Performed? Yes
[2021-06-09 06:36] LABS: Glucose,Whole Blood 141 mg/dL (75-99)
[2021-06-09] MEDS: INSULIN ASPART (NovoLOG) 100 UNIT/ML VIAL SQ SCH ×3 (06:43→17:38)
[2021-06-09 07:42] LABS: Basophils # (A) 0.1 k/uL (0-0.2); Basophils % (A) 0 %; Eosinophils % (A) 0 %; HCT 37.2 % (39.0-53.0); HGB 11.6 gm/dL (13.0-17.5); Hypochromasia Marked; Lymphocytes # (A) 1.9 k/uL (1.0-4.8); Lymphocytes % (A) 14 %; MCH 30.1 pg (25.0-35.0); MCHC 31.1 g/dL (31.0-37.0); MCV 96.6 fL (80.0-100.0); Mean Platelet Volume 7.9; Monocytes # (A) 1.1 k/uL (0-1.0); Monocytes % (A) 8 %; Neutrophils # (A) 9.9 k/uL (1.3-7.7); Neutrophils % (A) 75 %; Platelet Count 366 k/uL (150-450); RBC 3.85 m/uL (4.30-5.90); WBC 13.4 k/uL (3.8-10.6)
[2021-06-09 07:55] LABS: ALT 16 U/L (4-49); AST 27 U/L (17-59); African American GFR (CKD) >90 (>60 ml/min/1.73 sqM); Albumin 1.9 g/dL (3.5-5.0); Alkaline Phosphatase 59 U/L (38-126); Anion Gap 4 mmol/L; Blood Urea Nitrogen 3 mg/dL (9-20); Carbon Dioxide 17 mmol/L (22-30); Chloride 110 mmol/L (98-107); Glucose 97 mg/dL (74-99); Magnesium 1.3 mg/dL (1.6-2.3); Non-African American GFR(CKD) >90 (>60 ml/min/1.73 sqM); Potassium 3.1 mmol/L (3.5-5.1); Sodium 131 mmol/L (137-145); Total Bilirubin 0.4 mg/dL (0.2-1.3); Total Protein 4.6 g/dL (6.3-8.2)
--- NOTE | 2021-06-09 08:02 | XR ---
EXAMINATION TYPE: XR chest 1V portable DATE OF EXAM: 06/09/2021 Comparison: 06/08/2021 Clinical History: 61-year-old male Tube placement Findings: ET tube tip 3.1 cm from the armani. NG tube courses below the diaphragm. Heart remains borderline in size. Hyperinflation. Diffuse interstitial density persists. Hazy bibasilar opacities also redemonstr ated. Impression: Correlate for CHF with ongoing pulmonary vascular congestion. Small effusions with adjacent atelectas is and/or consolidation may be increased in the interval.
[2021-06-09] MEDS: NICOTINE 14MG/24HR PATCH TRANSDERM SCH (08:54)
[2021-06-09] MEDS: levETIRAcetam IV 1,000 MG in SALINE 1 100ML.BAG IVPB SCH ×2 (08:54→20:50)
[2021-06-09] MEDS: PANTOPRAZOLE 40 MG/10 ML VIAL IVP SCH (08:55)
[2021-06-09] MEDS: HEPARIN SODIUM,PORCINE/PF 5,000 UNIT/0.5 ML SYRINGE SQ SCH ×2 (08:55→20:54)
[2021-06-09] MEDS: CHLORHEXIDINE GLUCONATE 15 ML CUP MUCOUS MEM SCH ×2 (08:55→20:50)
[2021-06-09] MEDS: THIAMINE 100 MG/ML 2 ML VIAL IVP SCH (08:55)
[2021-06-09] MEDS: FLUCONAZOLE 100 MG TAB PO SCH (09:24)
[2021-06-09] MEDS: PIPERACILLIN-TAZOBACTAM 3.375 GM in SODIUM CHLORIDE 0.9% 100 ML IVPB SCH ×2 (09:32→17:35)
--- NOTE | 2021-06-09 10:02 | P.CNPUL ---
History of Present Illness Consult date: 06/09/21 Requesting physician: Arnaldo Jones Reason for consult: other (Mechanical ventilator/critical care management) Chief complaint: Seizure History of present illness: This is a 61-year-old male patient with a history of hypertension, alcohol abuse and previous seizures, wound to the right foot. He had been admitted back in February 2021 for acute alcohol intoxication and syncopal episodes. He also had a wound to the right foot. He had left AGAINST MEDICAL ADVICE at that time. He presented here to the emergency room yesterday morning by EMS after suffering a fall and seizure. He had stated he has a seizure about every 3 months and had been compliant with his medications. He ended up being discharged from the emergency room as he was quite anxious to leave. CT scan of the brain revealed no intracranial hemorrhage or mass effect. He was brought back to the emergency room shortly after arriving home and had repeat seizure that lasted approximately 2 minutes. He was post ictal upon arrival and alert and oriented times one. He had admitted to drinking 3-4 beers on a daily basis. He did continue to have seizures in the emergency department and was intubated and transferred to the intensive care unit. He is seen today in consultation. Currently on the mechanical ventilator with settings of assist control of 16, tidal volume 400, FiO2 40% and a PEEP of 5. Morning blood gases revealed a PaO2 of 166, pCO2 43 and a pH of 7.35. that was on 50% FiO2. White count 13.4. Hemoglobin 11.6. Sodium 131. Potassium 3.1. Bicarb 17. BUN 3. Creatinine 0.38. Calcium 6.0. Magnesium 1.3. Right foot wound culture pending. Chest x- ray shows pulmonary vascular congestion with small effusions and adjacent atelectasis/consolidation. Suspicious for aspiration pneumonia. EEG revealed slowing due to medication effect. Otherwise no focal slowing, epileptic form discharges or seizure on the EEG. He has been initiated on Dilantin and Keppra. He is currently sedated on propofol at 20 mcg/kg/m. First set at 10 mg per hour. Norepinephrine at 0.11 mcg/kg/m. Normal saline at 100 ML's per hour. Review of Systems ROS unobtainable: due to endotracheal tube Past Medical History Past Medical History: Seizure Disorder History of Any Multi-Drug Resistant Organisms: None Reported Additional Past Surgical History / Comment(s): Right leg fracture repair Smoking Status: Current every day smoker - Past Family History Mother Family Medical History: Coronary Artery Disease (CAD) Medications and Allergies Home Medications Medication Instructions Recorded Confirmed Type Metoprolol Tartrate [Lopressor] 100 mg PO BID 03/20/21 06/08/21 History cloNIDine HCL [Catapres] 0.1 mg PO HS 06/08/21 06/08/21 History cloNIDine HCL [Catapres] 0.2 mg PO QAM 06/08/21 06/08/21 History lisinopriL [Zestril] 5 mg PO DAILY 06/08/21 06/08/21 History Allergies Allergy/AdvReac Type Severity Reaction Status Date / Time No Known Allergies Allergy Verified 06/08/21 12:35 Physical Exam Vitals: Vital Signs Temp Pulse Resp BP Pulse Ox 06/09/21 08:30 59 L 25 H 101/70 98 06/09/21 08:00 97.7 F 61 29 H 99/71 98 06/09/21 07:30 60 20 104/74 98 06/09/21 07:23 60 16 06/09/21 07:13 62 19 06/09/21 07:00 56 L 21 105/73 99 06/09/21 06:30 58 L 27 H 96/71 98 06/09/21 06:00 60 23 98/70 100 06/09/21 05:30 60 27 H 98/70 98 06/09/21 05:00 61 27 H 99/72 97 06/09/21 04:30 61 23 96/70 98 06/09/21 04:00 98.5 F 62 26 H 96/71 98 06/09/21 03:30 64 26 H 98/69 98 06/09/21 03:00 64 28 H 96/68 97 06/09/21 02:50 66 06/09/21 02:36 63 06/09/21 02:30 65 25 H 95/67 98 06/09/21 02:00 65 21 91/67 98 06/09/21 01:30 68 22 96/71 98 06/09/21 01:00 71 28 H 92/68 98 06/09/21 00:35 72 22 87/66 96 06/09/21 00:30 74 22 92/68 97 06/09/21 00:00 99 F 97 9 L 88/66 96 06/08/21 23:30 76 18 114/80 97 06/08/21 23:00 77 28 H 98/73 97 06/08/21 22:30 78 29 H 90/68 97 06/08/21 22:00 77 26 H 89/69 97 06/08/21 21:30 81 23 109/78 98 06/08/21 21:00 77 21 81/58 97 06/08/21 20:30 81 25 H 73/58 96 06/08/21 20:00 99.4 F 89 23 74/56 97 06/08/21 19:30 93 25 H 92/66 99 06/08/21 19:00 96 28 H 75/58 96 06/08/21 18:30 98 29 H 82/60 95 06/08/21 18:00 108 H 30 H 88/67 97 06/08/21 17:50 100.6 F H 109 H 30 H 143/117 98 06/08/21 17:12 111 H 26 H 101/70 100 06/08/21 16:21 115 H 26 H 118/85 100 06/08/21 15:43 113/90 06/08/21 15:34 108 H 23 90/67 100 06/08/21 15:18 110 H 24 101/50 100 06/08/21 14:55 128 H 22 113/90 100 06/08/21 14:45 120 H 24 142/104 100 06/08/21 14:20 145 H 26 H 154/86 100 06/08/21 13:00 130 H 20 163/107 98 06/08/21 12:12 94 18 186/108 94 L 06/08/21 11:29 98 F 92 18 175/98 96 Intake and Output 06/08/21 06/09/21 06/09/21 22:59 06:59 14:59 Intake Total 2529.199 1176.865 231.876 Output Total 270 310 60 Balance 2259.199 866.865 171.876 Intake: IV 2399 900 200 Sodium Chloride 0.9% 1, 2399 900 200 000 ml @ 100 mls/hr IV . Q10H [facility] Rx#:[id number] Intake, IV Titration 130.199 276.865 31.876 Amount Midazolam HCl 50 mg In 14.617 Sodium Chloride 0.9% 40 ml @ 1 MG/HR 1 mls/hr IV .Q24H [facility] Rx#:[id number] Norepinephrine 4 mg In 14.171 215.764 Sodium Chloride 0.9% 250 ml @ 0.05 MCG/KG/MIN 12. 961 mls/hr IV .[id number] [facility] Rx#:[id number] propofoL 1,000 mg In 101.411 61.101 31.876 Empty Bag 1 bag @ 5 MCG/ KG/MIN 2.041 mls/hr IV . Q24H [facility] Rx#:[id number] Output: Urine 270 310 60 Other: Voiding Method Indwelling Catheter Indwelling Catheter Weight 68.039 kg 68.7 kg GENERAL EXAM: Intubated, sedated 61-year-old male patient, on mechanical ventilator, comfortable in no apparent distress. HEAD: Normocephalic. EYES: Sluggish reaction of pupils, equal size. NOSE: Clear with pink turbinates. THROAT: No erythema or exudates. NECK: No masses, no JVD. CHEST: No chest wall deformity. LUNGS: Equal air entry with few bilateral scattered rhonchi. CVS: S1 and S2 normal with no audible murmur, regular rhythm. ABDOMEN: No hepatosplenomegaly, normal bowel sounds, no guarding or rigidity. SPINE: No scoliosis or deformity SKIN: No rashes CENTRAL NERVOUS SYSTEM: No focal deficits, tone is normal in all 4 extremities. EXTREMITIES: Cellulitis of the right lower extremity wound.There is no peripheral edema. No clubbing, no cyanosis. Peripheral pulses are intact. Results - Laboratory Findings CBC and BMP: 06/09/21 06:50 06/09/21 06:50 ABG ABG pH 7.35 (7.35-7.45) 06/09/21 05:50 ABG pCO2 43 mmHg (35-45) 06/09/21 05:50 ABG pO2 166 mmHg (83-108) H 06/09/21 05:50 ABG O2 Saturation 99.5 % (94-97) H 06/09/21 05:50 Abnormal lab findings: Abnormal Labs 06/08/21 06/08/21 06/08/21 11:52 11:52 15:20 WBC 13.6 H RBC Hgb Hct Plt Count 452 H Neutrophils # 10.3 H Monocytes # ABG pH ABG pCO2 ABG pO2 ABG Total CO2 ABG O2 Saturation Sodium 130 L Potassium Chloride 97 L Carbon Dioxide BUN 6 L Creatinine 0.55 L Glucose 159 H POC Glucose (mg/dL) Calcium Magnesium Alkaline Phosphatase 133 H Total Protein Albumin U Benzodiazepines Scrn Detected H U Marijuana (THC) Screen Detected H 06/08/21 06/08/21 06/08/21 15:35 17:43 23:59 WBC RBC Hgb Hct Plt Count Neutrophils # Monocytes # ABG pH 7.26 L ABG pCO2 54 H ABG pO2 399 H ABG Total CO2 26 H ABG O2 Saturation 99.8 H Sodium Potassium Chloride Carbon Dioxide BUN Creatinine Glucose POC Glucose (mg/dL) 178 H 141 H Calcium Magnesium Alkaline Phosphatase Total Protein Albumin U Benzodiazepines Scrn U Marijuana (THC) Screen 06/09/21 06/09/21 06/09/21 05:50 06:34 06:50 WBC 13.4 H RBC 3.85 L Hgb 11.6 L Hct 37.2 L Plt Count Neutrophils # 9.9 H Monocytes # 1.1 H ABG pH ABG pCO2 ABG pO2 166 H ABG Total CO2 25 H ABG O2 Saturation 99.5 H Sodium Potassium Chloride Carbon Dioxide BUN Creatinine Glucose POC Glucose (mg/dL) 141 H Calcium Magnesium Alkaline Phosphatase Total Protein Albumin U Benzodiazepines Scrn U Marijuana (THC) Screen 06/09/21 06:50 WBC RBC Hgb Hct Plt Count Neutrophils # Monocytes # ABG pH ABG pCO2 ABG pO2 ABG Total CO2 ABG O2 Saturation Sodium 131 L Potassium 3.1 L Chloride 110 H Carbon Dioxide 17 L BUN 3 L Creatinine 0.38 L Glucose POC Glucose (mg/dL) Calcium 6.0 L* Magnesium 1.3 L Alkaline Phosphatase Total Protein 4.6 L Albumin 1.9 L U Benzodiazepines Scrn U Marijuana (THC) Screen - Diagnostic Findings Chest x-ray: image reviewed Assessment and Plan Assessment: 1 Status epilepticus requiring intubation and mechanical ventilatory support 2 Aspiration pneumonia, initiated on Zosyn 3 History of previous seizures secondary to alcohol withdrawal, unclear if this is the given situation this admission. Alcohol level was <10 4 Urine drug screen positive for benzodiazepines and THC. 5 Hypotension requiring pressor support 6 Hypertension, history of 7 History of open wound of the right foot, cellulitis 8 Chronic and ongoing tobacco dependence Plan: The patient was seen and evaluated Chest x-ray, ABGs, EEG and labs reviewed Plan to hold sedation and obtain weaning parameters Add Zosyn for possible aspiration Continue Dilantin and Keppra per neurology Continue CIWA protocol, thiamine NicoDerm patch in place Continue bronchodilators Heparin for DVT prophylaxis Protonix for GI prophylaxis We will continue to follow and make further recommendations based on his clinical status I have personally seen and examined the patient, performed the documentation and the assessment and plan as written. Number of minutes spent on the visit: 20
[2021-06-09 11:29] LABS: Glucose,Whole Blood 99 mg/dL (75-99)
--- NOTE | 2021-06-09 15:03 | P.PN ---
Subjective Progress Note Date: 06/09/21 Yesterday in the ED he was intubated and place on ventilator and Placed on IV Propofol 30mcg/kg/min and IV versed 10mg/hr. Per nurse no further seizure-like activity noted. Per patient son and his brother who are at bedside patient last drink was likely 24 hours prior to presenting to hospital. Objective - Vital Signs Vital signs: Vital Signs Temp 97.7 F 06/09/21 08:00 Pulse 76 06/09/21 13:00 Resp 24 06/09/21 13:00 BP 97/60 06/09/21 13:00 Pulse Ox 98 06/09/21 13:00 Intake & Output 06/08/21 06/09/21 06/09/21 18:59 06:59 18:59 Intake Total 418.418 5478.659 839.072 Output Total 140 440 260 Balance 28.956 3099.659 579.072 Weight 68.039 kg 68.7 kg Intake: IV 100 3199 600 Sodium Chloride 0.9% 1, 100 3199 600 000 ml @ 100 mls/hr IV . Q10H [facility] Rx#:[id number] Intake, IV Titration 68.956 340.659 239.072 Amount Midazolam HCl 50 mg In 14.617 35.383 Sodium Chloride 0.9% 40 ml @ 1 MG/HR 1 mls/hr IV .Q24H [facility] Rx#:[id number] Norepinephrine 4 mg In 229.935 157.048 Sodium Chloride 0.9% 250 ml @ 0.05 MCG/KG/MIN 12. 961 mls/hr IV .[id number] [facility] Rx#:[id number] propofoL 1,000 mg In 68.956 96.107 46.641 Empty Bag 1 bag @ 5 MCG/ KG/MIN 2.041 mls/hr IV . Q24H [facility] Rx#:[id number] Output: Urine 140 440 260 Other: Voiding Method Indwelling Catheter Indwelling Catheter Indwelling Catheter - Exam GENERAL: The patient is lying in bed and does not seem in acute distress. LUNG: Intubated on ventilator. NEUROLOGICAL: Limited because patient is on sedation ( IV Propofol 30mcg/kg/min and IV versed 10mg/hr)---held for two hour prior examination. Higher mental function: The patient is comatose. No responding or following commands. Cranial nerves: I had to manually open his eyes. The pupils are pinpoint 1mm, round bilaterally. Primary gaze is midline. No facial weakness. Motor: The strength could not assess but no movement is noted. No spontaneous movement noted. Cerebellum: Unable to asses. Sensation: Unable to asses. Reflexes (right/left): 1+ throughout. WORK-UP: UDS: +Benzo and Marijuana. Serum alcohol level <10. Otherwise rest is not detected. Routine EEG on 06/08/2021: Abnormal routine EEG. The background is diffusely suppressed due to medication effect (IV Propofol, Versed and Ativan). Otherwise there is no focal slowing, epileptiform discharges or seizure on the EEG. Recent imaging: CT of the head earlier today is reported as there is no acute intracranial hemorrhage, mass effect or gross space occupying lesion. I personally reviewed the CT of the head and I agree with the report CT cervical spine earlier today was reported as there is no acute fracture or dislocation evident in the cervical spine. - Labs CBC & Chem 7: 06/09/21 06:50 06/09/21 06:50 Labs: Abnormal Lab Results - Last 24 Hours (Table) 06/08/21 06/08/21 06/08/21 Range/Units 15:20 15:35 17:43 WBC (3.8-10.6) k/uL RBC (4.30-5.90) m/uL Hgb (13.0-17.5) gm/dL Hct (39.0-53.0) % Neutrophils # (1.3-7.7) k/uL Monocytes # (0-1.0) k/uL ABG pH 7.26 L (7.35-7.45) ABG pCO2 54 H (35-45) mmHg ABG pO2 399 H (83-108) mmHg ABG Total CO2 26 H (19-24) mmol/L ABG O2 Saturation 99.8 H (94-97) % Sodium (137-145) mmol/L Potassium (3.5-5.1) mmol/L Chloride (98-107) mmol/L Carbon Dioxide (22-30) mmol/L BUN (9-20) mg/dL Creatinine (0.66-1.25) mg/dL POC Glucose (mg/dL) 178 H (75-99) mg/dL Calcium (8.4-10.2) mg/dL Magnesium (1.6-2.3) mg/dL Total Protein (6.3-8.2) g/dL Albumin (3.5-5.0) g/dL U Benzodiazepines Scrn Detected H (NotDetected) U Marijuana (THC) Screen Detected H (NotDetected) 06/08/21 06/09/21 06/09/21 Range/Units 23:59 05:50 06:34 WBC (3.8-10.6) k/uL RBC (4.30-5.90) m/uL Hgb (13.0-17.5) gm/dL Hct (39.0-53.0) % Neutrophils # (1.3-7.7) k/uL Monocytes # (0-1.0) k/uL ABG pH (7.35-7.45) ABG pCO2 (35-45) mmHg ABG pO2 166 H (83-108) mmHg ABG Total CO2 25 H (19-24) mmol/L ABG O2 Saturation 99.5 H (94-97) % Sodium (137-145) mmol/L Potassium (3.5-5.1) mmol/L Chloride (98-107) mmol/L Carbon Dioxide (22-30) mmol/L BUN (9-20) mg/dL Creatinine (0.66-1.25) mg/dL POC Glucose (mg/dL) 141 H 141 H (75-99) mg/dL Calcium (8.4-10.2) mg/dL Magnesium (1.6-2.3) mg/dL Total Protein (6.3-8.2) g/dL Albumin (3.5-5.0) g/dL U Benzodiazepines Scrn (NotDetected) U Marijuana (THC) Screen (NotDetected) 06/09/21 06/09/21 Range/Units 06:50 06:50 WBC 13.4 H (3.8-10.6) k/uL RBC 3.85 L (4.30-5.90) m/uL Hgb 11.6 L (13.0-17.5) gm/dL Hct 37.2 L (39.0-53.0) % Neutrophils # 9.9 H (1.3-7.7) k/uL Monocytes # 1.1 H (0-1.0) k/uL ABG pH (7.35-7.45) ABG pCO2 (35-45) mmHg ABG pO2 (83-108) mmHg ABG Total CO2 (19-24) mmol/L ABG O2 Saturation (94-97) % Sodium 131 L (137-145) mmol/L Potassium 3.1 L (3.5-5.1) mmol/L Chloride 110 H (98-107) mmol/L Carbon Dioxide 17 L (22-30) mmol/L BUN 3 L (9-20) mg/dL Creatinine 0.38 L (0.66-1.25) mg/dL POC Glucose (mg/dL) (75-99) mg/dL Calcium 6.0 L* (8.4-10.2) mg/dL Magnesium 1.3 L (1.6-2.3) mg/dL Total Protein 4.6 L (6.3-8.2) g/dL Albumin 1.9 L (3.5-5.0) g/dL U Benzodiazepines Scrn (NotDetected) U Marijuana (THC) Screen (NotDetected) Microbiology - Last 24 Hours (Table) 06/08/21 21:50 Gram Stain - Preliminary Foot - Right Wound Culture - Preliminary Assessment and Plan Assessment: Clinical Status epilepticus---resolved on IV Versed and IV Propofol. Unsure if this was purely due to alcohol withdrawal (since last drink was 24 hours prior to coming to hospital) or in addition he has primary seizure activity. History of seizures and unknown if it's due to purely alcohol withdrawal or in addition has primary seizure activity. Alcohol use and last drink was 24 hours prior to presenting to hospital History of alcohol withdrawal Plan: Routine EEG on 06/08/2021: Abnormal routine EEG. The background is diffusely suppressed due to medication effect (IV Propofol, Versed and Ativan). Otherwise there is no focal slowing, epileptiform discharges or seizure on the EEG. Continue Keppra at thousand milligram IV every 12 hours We'll get an MRI of the brain with and without seizure protocol once the patient is more stable. Every hour neuro checks Seizure precautions seizure pads Continue IV thiamine 100 mg daily Started the patient on Ativan 1 mg every 4 hours PRN for seizure Continue to hold sedation and for better neurological examination. If has further seizure to notify neurology team. Patient is on CIWA protocol and will defer management to primary team. Ordered ionized calcium. Will defer electrolyte correction to primary team. Will defer the rest of medical management to the primary team and ICU team. The plan was discussed with the patient's family members (son and patient's brother) and discussed with his nurse. Chin Rayo M.D. Neuro-hospitalist Time with Patient: Less than 30
--- NOTE | 2021-06-09 15:08 | P.PN ---
Subjective Progress Note Date: 06/09/21 This is a 61-year-old male who was recently admitted with seizures and went into status epilepticus requiring mechanical ventilation with intubation and sedation and is closely monitored in the ICU with multiple medical consultations following. Neurology following as well as pulmonary crime victim specialist and patient remains on mechanical vent with an FiO2 of 40% with a PEEP of 5. Family members at the bedside including brother and son reports the patient drinking daily at least 3-4 large 22 ounce cans of beer if not more daily and reports the patient never discontinuing drinking. Per nursing staff patient is being evaluated and assessed closely off sedation to monitor mental status with neurology following. Patient noted to have generalized swelling throughout. Patient is afebrile and continues on prophylactic antibiotic along with IV hydration and will continue. Maintain CIPA protocol and appreciate input and recommendations from neurology. Per family patient has poor social support and lives with another roommate who drinks daily heavily as well and will consult case management and social work along with PT/OT therapy once patient is extubated. Review of systems: Unable to obtain as patient is on mechanical vent and sedated All medications have been reviewed Active Medications Albuterol/Ipratropium (Ipratropium-Albuterol 3 Ml Neb) 3 ml INHALATION RT-Q2H PRN PRN Reason: Shortness Of Breath Or Wheezing Albuterol/Ipratropium (Ipratropium-Albuterol 3 Ml Neb) 3 ml INHALATION RT-Q4H [facility] Last Admin: 06/09/21 11:28 Dose: 3 ml Documented by: Chlorhexidine Gluconate (Chlorhexidine Gluconate 15 Ml Cup) 15 ml MUCOUS MEM BID [facility] Last Admin: 06/09/21 08:55 Dose: 15 ml Documented by: Fluconazole (Fluconazole 100 Mg Tab) 100 mg PO DAILY [facility]; Protocol Last Admin: 06/09/21 09:24 Dose: 100 mg Documented by: Heparin Sodium (Porcine) (Heparin Sodium,Porcine/Pf 5,000 Unit/0.5 Ml Syringe) 5,000 unit SQ Q12HR [facility] Last Admin: 06/09/21 08:55 Dose: 5,000 unit Documented by: Levetiracetam 1,000 mg/ IV (Solution) 100 mls @ 400 mls/hr IVPB Q12HR [facility] Last Admin: 06/09/21 08:54 Dose: 400 mls/hr Documented by: Sodium Chloride (Saline 0.9%) 1,000 mls @ 100 mls/hr IV .Q10H [facility] Last Admin: 06/09/21 09:33 Dose: 100 mls/hr Documented by: Norepinephrine Bitartrate 4 mg (/ Sodium Chloride) 254 mls @ 12.961 mls/hr IV .[id number] [facility]; Protocol Last Titration: 06/09/21 11:00 Dose: 0 mcg/kg/min, 0 mls/hr Documented by: Midazolam HCl 200 mg/ Sodium (Chloride) 100 mls @ 0.5 mls/hr IV .Q24H [facility]; Protocol Last Admin: 06/08/21 22:10 Dose: 10 mg/hr, 5 mls/hr Documented by: Piperacillin Sod/Tazobactam (Sod 3.375 gm/ Sodium Chloride) 100 mls @ 25 mls/hr IVPB Q8H [facility]; Protocol Last Admin: 06/09/21 09:32 Dose: 25 mls/hr Documented by: Dexmedetomidine HCl 400 mcg/ (IV Solution) 100 mls @ 3.435 mls/hr IV .Q24H [facility]; Protocol Insulin Aspart (Insulin Aspart (Novolog) 100 Unit/Ml Vial) 0 unit SQ Q6H [facility]; Protocol Last Admin: 06/09/21 13:14 Dose: Not Given Documented by: Lorazepam (Lorazepam 2 Mg/Ml Inj) 1 mg IV Q2HR PRN PRN Reason: CIWA 8 or 9 Lorazepam (Lorazepam 2 Mg/Ml Inj) 1 mg IV Q1HR PRN PRN Reason: CIWA 10 to 15 Lorazepam (Lorazepam 2 Mg/Ml Inj) 1 mg IV Q4HR PRN PRN Reason: Seizures Naloxone HCl (Naloxone 0.4 Mg/Ml 1 Ml Vial) 0.2 mg IV Q2M PRN PRN Reason: Opioid Reversal Nicotine (Nicotine 14mg/24hr Patch) 1 patch TRANSDERM DAILY [facility] Last Admin: 06/09/21 08:54 Dose: 1 patch Documented by: Nystatin (Nystatin 100,000unit/Gm Cream 30 Gm Tube) 1 applic TOPICAL BID PRN; Protocol PRN Reason: Skin Irritation Last Admin: 06/09/21 00:10 Dose: 1 applic Documented by: Pantoprazole Sodium (Pantoprazole 40 Mg/10 Ml Vial) 40 mg IVP DAILY [facility] Last Admin: 06/09/21 08:55 Dose: 40 mg Documented by: Thiamine HCl (Thiamine 100 Mg/Ml 2 Ml Vial) 100 mg IVP DAILY [facility] Last Admin: 06/09/21 08:55 Dose: 100 mg Documented by: PHYSICAL EXAMINATION: GENERAL: The patient is sedated and receiving sedation holiday currently in attempting to assess mentation and possible weaning from vent. FiO2 is 40% with a PEEP of 5. HEENT: Pupils are round and equally reacting to light. EOMI. no scleral icterus. No conjunctival pallor. Normocephalic, atraumatic. No pharyngeal erythema. No thyromegaly. ET tube noted. CARDIOVASCULAR: S1 and S2 muffled PULMONARY: diminished breath sounds bilaterally with no wheezing and some scattered rhonchi noted. ABDOMEN: soft. Nontender on exam. non-distended, normoactive bowel sounds. No palpable organomegaly. MUSCULOSKELETAL: No joint swelling or deformity. EXTREMITIES: No cyanosis, clubbing, or pedal edema. NEUROLOGICAL: Gross neurological examination did not reveal any focal deficits. Unable to completely assess as patient is intubated SKIN: No rashes. Assessment: Acute seizure disorder as well as status epilepticus with hypoxic respiratory failure, on mechanical ventilation Rule out delirium tremens Hyponatremia History of EtOH History of chronic obstructive pulmonary disease Right leg cellulitis GI prophylaxis DVT prophylaxis Full code Plan: Recommend to continue with current medications and management per pulmonary crime victim specialist and neurology. Patient continues on mechanical vent with an FiO2 of 40% and PEEP is 5 and working on weaning parameters along with sedation holidays to assess mentation and possible weaning from the vent. Neurology also following and neurological workup is in process. Recommend to maintain CIWA protocol and closely monitor for any withdrawals. Patient with son and brother at the bedside reports poor social support and hanging around other people that use illicit drugs and drink heavily alcohol and will need to discuss further with social work and case management about possible alcohol rehab and also will have psychiatry evaluate the patient once extubated. Patient continues in critical condition and will continue to monitor closely. Due to multiple complex medical issues, prognosis is guarded. The impression and plan of care has been dictated by Milvia Hemphill nurse practitioner as directed. MD Rohan I have performed a history and examination and MDM of this patient, discussed the same with the dictator, and agree with the dictator's assessment and plan as written ,documented as a scribe. Based on total visit time, I have performed more than 50% of the visit. Any additional findings or plans will be noted. Objective - Vital Signs Vital signs: Vital Signs Temp 97.7 F 06/09/21 08:00 Pulse 92 06/09/21 11:45 Resp 18 06/09/21 11:45 BP 103/69 06/09/21 11:00 Pulse Ox 98 06/09/21 11:00 Intake & Output 06/08/21 06/09/21 06/09/21 18:59 06:59 18:59 Intake Total 064.706 1503.659 636.010 Output Total 140 440 160 Balance 28.956 3099.659 476.010 Weight 68.039 kg 68.7 kg Intake: IV 100 3199 400 Sodium Chloride 0.9% 1, 100 3199 400 000 ml @ 100 mls/hr IV . Q10H [facility] Rx#:[id number] Intake, IV Titration 68.956 340.659 236.010 Amount Midazolam HCl 50 mg In 14.617 35.383 Sodium Chloride 0.9% 40 ml @ 1 MG/HR 1 mls/hr IV .Q24H [facility] Rx#:[id number] Norepinephrine 4 mg In 229.935 157.048 Sodium Chloride 0.9% 250 ml @ 0.05 MCG/KG/MIN 12. 961 mls/hr IV .[id number] [facility] Rx#:[id number] propofoL 1,000 mg In 68.956 96.107 43.579 Empty Bag 1 bag @ 5 MCG/ KG/MIN 2.041 mls/hr IV . Q24H [facility] Rx#:[id number] Output: Urine 140 440 160 Other: Voiding Method Indwelling Catheter Indwelling Catheter Indwelling Catheter - Labs CBC & Chem 7: 06/09/21 06:50 06/09/21 06:50 Labs: Abnormal Lab Results - Last 24 Hours (Table) 06/08/21 06/08/21 06/08/21 Range/Units 15:20 15:35 17:43 WBC (3.8-10.6) k/uL RBC (4.30-5.90) m/uL Hgb (13.0-17.5) gm/dL Hct (39.0-53.0) % Neutrophils # (1.3-7.7) k/uL Monocytes # (0-1.0) k/uL ABG pH 7.26 L (7.35-7.45) ABG pCO2 54 H (35-45) mmHg ABG pO2 399 H (83-108) mmHg ABG Total CO2 26 H (19-24) mmol/L ABG O2 Saturation 99.8 H (94-97) % Sodium (137-145) mmol/L Potassium (3.5-5.1) mmol/L Chloride (98-107) mmol/L Carbon Dioxide (22-30) mmol/L BUN (9-20) mg/dL Creatinine (0.66-1.25) mg/dL POC Glucose (mg/dL) 178 H (75-99) mg/dL Calcium (8.4-10.2) mg/dL Magnesium (1.6-2.3) mg/dL Total Protein (6.3-8.2) g/dL Albumin (3.5-5.0) g/dL U Benzodiazepines Scrn Detected H (NotDetected) U Marijuana (THC) Screen Detected H (NotDetected) 06/08/21 06/09/21 06/09/21 Range/Units 23:59 05:50 06:34 WBC (3.8-10.6) k/uL RBC (4.30-5.90) m/uL Hgb (13.0-17.5) gm/dL Hct (39.0-53.0) % Neutrophils # (1.3-7.7) k/uL Monocytes # (0-1.0) k/uL ABG pH (7.35-7.45) ABG pCO2 (35-45) mmHg ABG pO2 166 H (83-108) mmHg ABG Total CO2 25 H (19-24) mmol/L ABG O2 Saturation 99.5 H (94-97) % Sodium (137-145) mmol/L Potassium (3.5-5.1) mmol/L Chloride (98-107) mmol/L Carbon Dioxide (22-30) mmol/L BUN (9-20) mg/dL Creatinine (0.66-1.25) mg/dL POC Glucose (mg/dL) 141 H 141 H (75-99) mg/dL Calcium (8.4-10.2) mg/dL Magnesium (1.6-2.3) mg/dL Total Protein (6.3-8.2) g/dL Albumin (3.5-5.0) g/dL U Benzodiazepines Scrn (NotDetected) U Marijuana (THC) Screen (NotDetected) 06/09/21 06/09/21 Range/Units 06:50 06:50 WBC 13.4 H (3.8-10.6) k/uL RBC 3.85 L (4.30-5.90) m/uL Hgb 11.6 L (13.0-17.5) gm/dL Hct 37.2 L (39.0-53.0) % Neutrophils # 9.9 H (1.3-7.7) k/uL Monocytes # 1.1 H (0-1.0) k/uL ABG pH (7.35-7.45) ABG pCO2 (35-45) mmHg ABG pO2 (83-108) mmHg ABG Total CO2 (19-24) mmol/L ABG O2 Saturation (94-97) % Sodium 131 L (137-145) mmol/L Potassium 3.1 L (3.5-5.1) mmol/L Chloride 110 H (98-107) mmol/L Carbon Dioxide 17 L (22-30) mmol/L BUN 3 L (9-20) mg/dL Creatinine 0.38 L (0.66-1.25) mg/dL POC Glucose (mg/dL) (75-99) mg/dL Calcium 6.0 L* (8.4-10.2) mg/dL Magnesium 1.3 L (1.6-2.3) mg/dL Total Protein 4.6 L (6.3-8.2) g/dL Albumin 1.9 L (3.5-5.0) g/dL U Benzodiazepines Scrn (NotDetected) U Marijuana (THC) Screen (NotDetected) Microbiology - Last 24 Hours (Table) 06/08/21 21:50 Gram Stain - Preliminary Foot - Right Wound Culture - Preliminary
[2021-06-09] MEDS: DEXMEDETOMIDINE/0.9% NACL(PMX) 400 MCG in EMPTY BAG 1 BAG IV SCH (15:24)
[2021-06-09 17:39] LABS: Glucose,Whole Blood 110 mg/dL (75-99)
[2021-06-09] MEDS: LORazepam 2 MG/ML INJ IV PRN (23:34)
[2021-06-09 23:38] LABS: Glucose,Whole Blood 114 mg/dL (75-99)
[2021-06-10] MEDS: INSULIN ASPART (NovoLOG) 100 UNIT/ML VIAL SQ SCH ×5 (00:51→22:12)
[2021-06-10] MEDS: DEXMEDETOMIDINE/0.9% NACL(PMX) 400 MCG in EMPTY BAG 1 BAG IV SCH ×3 (00:52→20:25)
[2021-06-10] MEDS: PIPERACILLIN-TAZOBACTAM 3.375 GM in SODIUM CHLORIDE 0.9% 100 ML IVPB SCH ×3 (04:04→18:08)
[2021-06-10] MEDS: IPRATROPIUM-ALBUTEROL 3 ML NEB INHALATION SCH ×5 (05:08→20:38)
[2021-06-10 05:50] LABS: ABG Base Excess -0.9 mmol/L; ABG HCO3 25 mmol/L (21-25); ABG Oxygen Saturation 97.9 % (94-97); ABG PCO2 43 mmHg (35-45); ABG PH 7.36 (7.35-7.45); ABG PO2 116 mmHg (83-108); ABG TCO2 26 mmol/L (19-24); Allen Test Performed? Yes
[2021-06-10] MEDS ORDERED: FUROSEMIDE 10 MG/ML 4 ML VIAL IV STA (06:02)
[2021-06-10] MEDS: SODIUM CHLORIDE 0.9% 1,000 ML IV SCH ×2 (06:09→17:11)
--- NOTE | 2021-06-10 06:14 | XR ---
EXAMINATION TYPE: XR chest 1V portable DATE OF EXAM: 06/10/2021 CLINICAL HISTORY: Difficulty breathing progress study. TECHNIQUE: Single AP portable semiupright view of the chest is obtained. COMPARISON: Chest x-ray from one day earlier and older studies. FINDINGS: Stable endotracheal and orogastric tubes. Persistent deep sulcus sign on the left though no visualized pneumothorax on recent x-rays including upright image one day earlier. Persistent bibasilar opacity. Cardiac silhouette size stable and upper limits of normal. Osseous structures are intact. IMPRESSION: Mild central vascular congestion with bibasilar acute infiltrate and/or atelectasis and l ikely small left pleural effusion all redemonstrated. No significant change from one day earlier.
[2021-06-10 06:16] LABS: Glucose,Whole Blood 125 mg/dL (75-99)
[2021-06-10 07:15] LABS: HCT 43.1 % (39.0-53.0); HGB 12.9 gm/dL (13.0-17.5); Hypochromasia Marked; MCH 29.8 pg (25.0-35.0); MCV 99.5 fL (80.0-100.0); Mean Platelet Volume 8.6; Platelet Count 305 k/uL (150-450); RBC 4.33 m/uL (4.30-5.90); WBC 11.3 k/uL (3.8-10.6)
[2021-06-10 07:25] LABS: African American GFR (CKD) >90 (>60 ml/min/1.73 sqM); Anion Gap 5 mmol/L; Blood Urea Nitrogen 6 mg/dL (9-20); Calcium 8.3 mg/dL (8.4-10.2); Carbon Dioxide 21 mmol/L (22-30); Chloride 106 mmol/L (98-107); Glucose 114 mg/dL (74-99); Non-African American GFR(CKD) >90 (>60 ml/min/1.73 sqM); Sodium 132 mmol/L (137-145)
[2021-06-10 07:28] LABS: Magnesium 1.7 mg/dL (1.6-2.3); Potassium 4.3 mmol/L (3.5-5.1)
[2021-06-10] MEDS: THIAMINE 100 MG/ML 2 ML VIAL IVP SCH (07:52)
[2021-06-10] MEDS: CHLORHEXIDINE GLUCONATE 15 ML CUP MUCOUS MEM SCH (07:52)
[2021-06-10] MEDS: levETIRAcetam IV 1,000 MG in SALINE 1 100ML.BAG IVPB SCH (07:52)
[2021-06-10] MEDS: NICOTINE 14MG/24HR PATCH TRANSDERM SCH (07:52)
[2021-06-10] MEDS: PANTOPRAZOLE 40 MG/10 ML VIAL IVP SCH (07:52)
[2021-06-10] MEDS: HEPARIN SODIUM,PORCINE/PF 5,000 UNIT/0.5 ML SYRINGE SQ SCH ×2 (07:52→20:30)
[2021-06-10] MEDS: FLUCONAZOLE 100 MG TAB PO SCH (07:52)
[2021-06-10] MEDS: NOREPINEPHRINE 4 MG in SODIUM CHLORIDE 0.9% 250 ML IV SCH (08:43)
--- NOTE | 2021-06-10 10:27 | CDI ---
Documentation Clarification Form Date: 06/10/2021 10:03:01 AM From: Mallory Boyd CCS, CCDS Admit Date: 06/08/2021 01:01:00 PM Patient Name: Blaise Sandoval Visit Number: [id number] Discharge Date: ATTENTION: The Clinical Documentation Specialists (CDI) and [facility] Coding Staff appreciate your assistance in clarifying documentation. Please respond to the clarification below the line at the bottom and electronically sign. The CDI & [facility] Coding staff will review the response and follow-up if needed. Please note: Queries are made part of the Legal Health Record. If you have any questions, please contact the author of this message via ITS. Dr. Arnaldo Jones: Hypoxic Respiratory Failure is documented in the 06/08 ED Note, the 06/08 H/P & the 06/09 Attending Progress Note without further acuity. Please clarify the acuity of the Hypoxic Respiratory Failure. History/Risk Factors per the 06/08 H/P: Alcohol use and Dependence, Seizures, Nicotine Dependence. Clinical Indicators: Presented to the ED on 06/08 via EMS after having a seizure at home. The patient was discharged this morning from this hospital after being treated for Acute Alcohol Intoxication, Right Foot Wound, Hypertension and Sinus Tachycardia secondary to not receiving Metoprolol & possible Alcohol Withdrawal, left AMA. Admit with Seizure, Hyponatremia, Status Epilepticus, Respiratory Failure 06/08 VS: T 98, P 92 - 130; R 18 - 20; BP 175/98, 186/108, 163/107; PO 96 RA, 94 RA, 98 3Lnc, intubated on 100% vent. BMI: 25.0 06/08 LAB: WBC 13.6, Pl Ct 452, Neutrophils 10.3; Na 130, Chloride 97, BUN 6, Creatinine 0.55, Glucose 159, Alk Phosphatase 133 06/08 ABG: pH 7.26, pCO2 54, pO2 399, Total CO2 26, O2 Sat 99.8 06/08 Toxicology: Benzodiazepines & Marijuana detected 06/08 Serum Alcohol: <10 06/08 CXR: Mild increased central lung markings bilaterally nonspecific. Correlate for infectious etiology. Underlying masses could be considered. Repeat status post intubation & NGT: Mild congestion and small pleural effusion without change. Mild heart failure is possible. Treatment 06/08: CIWA protocol, Telemetry, Elevate HOB, Neurological Assessment, NGT, Intubated in ED, Calle Catheter, Blood Culture, Aerobic Wound culture, IV Ativan 1 mg x8, IV Ativan 2 mg x1, IV Na Cl 500 mls @ 900 mls/hr q31M, IM Vit B1 100 mg x1, IV Keppra 100 mls @ 400 mls/hr x1, IV Na Cl 1,000 mls @ 75 mls/hr q13H. Is there an additional diagnosis that is clinically appropriate for this patient? [ ] Acute Hypoxic Respiratory Failure [ ] Acute Respiratory Distress [ ] Acute Respiratory Insufficiency [ ] Other Diagnosis, please specify: [ ] Unable to determine (Template Last Revised: April 2020) Acute Hypoxic Respiratory Failure MTDD
[2021-06-10 12:06] LABS: Glucose,Whole Blood 122 mg/dL (75-99)
--- NOTE | 2021-06-10 12:30 | P.PN ---
Subjective Progress Note Date: 06/10/21 Principal diagnosis: Acute hypoxic respiratory failure secondary to status epilepticus This is a 61-year-old male patient with a history of hypertension, alcohol abuse and previous seizures, wound to the right foot. He had been admitted back in February 2021 for acute alcohol intoxication and syncopal episodes. He also had a wound to the right foot. He had left AGAINST MEDICAL ADVICE at that time. He presented here to the emergency room yesterday morning by EMS after suffering a fall and seizure. He had stated he has a seizure about every 3 months and had been compliant with his medications. He ended up being discharged from the emergency room as he was quite anxious to leave. CT scan of the brain revealed no intracranial hemorrhage or mass effect. He was brought back to the emergency room shortly after arriving home and had repeat seizure that lasted approximat shireen 2 minutes. He was post ictal upon arrival and alert and oriented times one. He had admitted to drinking 3-4 beers on a daily basis. He did continue to have seizures in the emergency department and was intubated and transferred to the intensive care unit. He is seen today in consultation. Currently on the mechanical ventilator with settings of assist control of 16, tidal volume 400, FiO2 40% and a PEEP of 5. Morning blood gases revealed a PaO2 of 166, pCO2 43 and a pH of 7.35. that was on 50% FiO2. White count 13.4. Hemoglobin 11.6. Sodium 131. Potassium 3.1. Bicarb 17. BUN 3. Creatinine 0.38. Calcium 6.0. Magnesium 1.3. Right foot wound culture pending. Chest x-ray shows pulmonary vascular congestion with small effusions and adjacent atelectasis/consolidation. Suspicious for aspiration pneumonia. EEG revealed slowing due to medication effect. Otherwise no focal slowing, epileptic form discharges or seizure on the EEG. He has been initiated on Dilantin and Keppra. He is currently sedated on propofol at 20 mcg/kg/m. First set at 10 mg per hour. Norepinephrine at 0.11 mcg/kg/m. Normal saline at 100 ML's per hour. Patient was reevaluated today on 06/10/21, patient remains in the ICU, intubated and mechanically ventilated, his ventilator settings were reviewed, patient is on Precedex, patient had no evidence of seizures over the last 24 hours, and he has been on Precedex for the last 24 hours. He is arousable, follows simple instructions, and he seems to be tolerating CPAP quite well for the last hour or so. Labs today showed WBC count of 11.3 hemoglobin of 12.9 electrolytes are normal renal profile is normal chest x-ray showed mild central vascular co ngestion with bibasilar infiltrates/atelectasis. I basically suspect that the patient had some sort of aspiration pneumonia. Objective - Vital Signs Vital signs: Vital Signs Temp 97.1 F L 06/10/21 12:00 Pulse 104 H 06/10/21 12:00 Resp 18 06/10/21 12:00 BP 128/84 06/10/21 12:00 Pulse Ox 87 L 06/10/21 12:00 Intake & Output 06/09/21 06/10/21 06/10/21 18:59 06:59 18:59 Intake Total 7011.917 2045.079 700.401 Output Total 358 799 0632 Balance 638.003 609.079 -2774.599 Weight 70.3 kg Intake: IV 1100 1200 600 Sodium Chloride 0.9% 1, 1100 1200 600 000 ml @ 100 mls/hr IV . Q10H [facility] Rx#:[id number] Intake, IV Titration 248.003 149.079 100.401 Amount Dexmedetomidine/0.9% NaCl 8.931 149.079 0.401 (Pmx) 400 mcg In Empty Bag 1 bag @ 0.2 MCG/KG/HR 3.435 mls/hr IV .Q24H [facility] Rx#:[id number] Midazolam HCl 50 mg In 35.383 Sodium Chloride 0.9% 40 ml @ 1 MG/HR 1 mls/hr IV .Q24H [facility] Rx#:[id number] Norepinephrine 4 mg In 157.048 Sodium Chloride 0.9% 250 ml @ 0.05 MCG/KG/MIN 12. 961 mls/hr IV .[id number] [facility] Rx#:[id number] Piperacillin-Tazobactam 3 100 .375 gm In Sodium Chloride 0.9% 100 ml @ 25 mls/hr IVPB Q8H [facility] Rx#: [id number] propofoL 1,000 mg In 46.641 Empty Bag 1 bag @ 5 MCG/ KG/MIN 2.041 mls/hr IV . Q24H [facility] Rx#:[id number] Output: Gastric Drainage 200 400 Urine [phone] Other: Voiding Method Indwelling Catheter Indwelling Catheter Indwelling Catheter - Exam Physical Exam: Revealed a 61-year-old white male in no distress. Head: Atraumatic, normocephalic. Endotracheal tube and orogastric tube are intact. HEENT:[Neck is supple.] [No neck masses.] [No thyromegaly.] [No JVD.] Chest: [Clear throughout, no crackles, no rhonchi, no wheezes.] Cardiac Exam: [Normal S1 and S2, no S3 gallop, no murmur.] Abdomen: [Soft, nontender, no megaly, no rebound, no guarding, normal bowel sounds.] Extremities: [No clubbing, no edema, no cyanosis.] Neurological Exam: [No focal neurologic deficit.] Alert oriented 3. - Labs CBC & Chem 7: 06/10/21 06:16 06/10/21 06:16 Labs: Abnormal Lab Results - Last 24 Hours (Table) 06/09/21 06/09/21 06/09/21 Range/Units 06:50 17:38 23:36 WBC (3.8-10.6) k/uL Hgb (13.0-17.5) gm/dL MCHC (31.0-37.0) g/dL ABG pO2 (83-108) mmHg ABG Total CO2 (19-24) mmol/L ABG O2 Saturation (94-97) % Sodium (137-145) mmol/L Carbon Dioxide (22-30) mmol/L BUN (9-20) mg/dL Creatinine (0.66-1.25) mg/dL Glucose (74-99) mg/dL POC Glucose (mg/dL) 110 H 114 H (75-99) mg/dL Calcium 6.0 L* (8.4-10.2) mg/dL 06/10/21 06/10/21 06/10/21 Range/Units 05:48 06:14 06:16 WBC 11.3 H (3.8-10.6) k/uL Hgb 12.9 L (13.0-17.5) gm/dL MCHC 30.0 L (31.0-37.0) g/dL ABG pO2 116 H (83-108) mmHg ABG Total CO2 26 H (19-24) mmol/L ABG O2 Saturation 97.9 H (94-97) % Sodium (137-145) mmol/L Carbon Dioxide (22-30) mmol/L BUN (9-20) mg/dL Creatinine (0.66-1.25) mg/dL Glucose (74-99) mg/dL POC Glucose (mg/dL) 125 H (75-99) mg/dL Calcium (8.4-10.2) mg/dL 06/10/21 06/10/21 Range/Units 06:16 12:04 WBC (3.8-10.6) k/uL Hgb (13.0-17.5) gm/dL MCHC (31.0-37.0) g/dL ABG pO2 (83-108) mmHg ABG Total CO2 (19-24) mmol/L ABG O2 Saturation (94-97) % Sodium 132 L (137-145) mmol/L Carbon Dioxide 21 L (22-30) mmol/L BUN 6 L (9-20) mg/dL Creatinine 0.46 L (0.66-1.25) mg/dL Glucose 114 H (74-99) mg/dL POC Glucose (mg/dL) 122 H (75-99) mg/dL Calcium 8.3 L (8.4-10.2) mg/dL Microbiology - Last 24 Hours (Table) 06/09/21 07:36 Gram Stain - Preliminary Sputum Sputum Culture - Preliminary 06/08/21 16:42 Blood Culture - Preliminary Blood No Growth after 24 hours 06/08/21 21:50 Gram Stain - Preliminary Foot - Right Wound Culture - Preliminary Assessment and Plan Assessment: Impression: Acute hypoxic respiratory failure secondary to status epilepticus requiring intubation and mechanical ventilation mostly to protect the airways. Acute aspiration pneumonia is strongly suspected. Remains on Zosyn. Positive drug screen for benzodiazepine and THC. History of chronic right foot cellulitis. Tobacco dependence syndrome. Possible alcohol withdrawal seizures Recommendation: Patient will be given a trial of pressure support and CPAP. Patient will remain on antibiotics./Zosyn. Continue Dilantin and Keppra. Continue CIWA protocol. Continue proper bronchodilators. Continue GI and DVT prophylaxis. We will likely extubate in the next half hour. We'll continue to follow Critical care time is over 30 minutes. Time with Patient: Greater than 30
--- NOTE | 2021-06-10 13:03 | P.PN ---
Subjective Progress Note Date: 06/10/21 Per the patient's nurse patient has not had any further seizure-like episode. The patient was extubated but continues to be on IV Precedex. Patient notified me that he has chronic ongoing alcohol use and has never been sober. He feels all his seizure were related to his alcohol withdrawal. Objective - Vital Signs Vital signs: Vital Signs Temp 97.1 F L 06/10/21 12:00 Pulse 104 H 06/10/21 12:00 Resp 18 06/10/21 12:00 BP 128/84 06/10/21 12:00 Pulse Ox 87 L 06/10/21 12:00 Intake & Output 06/09/21 06/10/21 06/10/21 18:59 06:59 18:59 Intake Total 9062.979 1213.079 700.401 Output Total 172 416 8901 Balance 638.003 609.079 -2774.599 Weight 70.3 kg Intake: IV 1100 1200 600 Sodium Chloride 0.9% 1, 1100 1200 600 000 ml @ 100 mls/hr IV . Q10H [facility] Rx#:[id number] Intake, IV Titration 248.003 149.079 100.401 Amount Dexmedetomidine/0.9% NaCl 8.931 149.079 0.401 (Pmx) 400 mcg In Empty Bag 1 bag @ 0.2 MCG/KG/HR 3.435 mls/hr IV .Q24H [facility] Rx#:[id number] Midazolam HCl 50 mg In 35.383 Sodium Chloride 0.9% 40 ml @ 1 MG/HR 1 mls/hr IV .Q24H [facility] Rx#:[id number] Norepinephrine 4 mg In 157.048 Sodium Chloride 0.9% 250 ml @ 0.05 MCG/KG/MIN 12. 961 mls/hr IV .[id number] [facility] Rx#:[id number] Piperacillin-Tazobactam 3 100 .375 gm In Sodium Chloride 0.9% 100 ml @ 25 mls/hr IVPB Q8H [facility] Rx#: [id number] propofoL 1,000 mg In 46.641 Empty Bag 1 bag @ 5 MCG/ KG/MIN 2.041 mls/hr IV . Q24H [facility] Rx#:[id number] Output: Gastric Drainage 200 400 Urine [phone] Other: Voiding Method Indwelling Catheter Indwelling Catheter Indwelling Catheter - Exam GENERAL: The patient is lying in bed and does not seem in acute distress. NEUROLOGICAL: On IV Precedex. Higher mental function: The patient is awake, alert, oriented to self and place. He stated the month is June but does not know the year. He is following simple commands. No aphasia. Cranial nerves: The pupils are round, equal and reactive to light. EOM is intact and no nystagmus. No facial weakness. Has hoarseness of his voice. Motor: The strength is lifting all extremities above gravity. No spontaneous movement noted. Seems mildly tremulous. Cerebellum: With finger to nose has end action tremor bilaterally. Sensation: Normal to touch. Reflexes (right/left): 1+ throughout. WORK-UP: UDS: +Benzo and Marijuana. Serum alcohol level <10. Otherwise rest is not de tected. Routine EEG on 06/08/2021: Abnormal routine EEG. The background is diffusely suppressed due to medication effect (IV Propofol, Versed and Ativan). Otherwise there is no focal slowing, epileptiform discharges or seizure on the EEG. Recent imaging: CT of the head earlier today is reported as there is no acute intracranial hemorrhage, mass effect or gross space occupying lesion. I personally reviewed the CT of the head and I agree with the report CT cervical spine earlier today was reported as there is no acute fracture or dislocation evident in the cervical spine. - Labs CBC & Chem 7: 06/10/21 06:16 06/10/21 06:16 Labs: Abnormal Lab Results - Last 24 Hours (Table) 06/09/21 06/09/21 06/09/21 Range/Units 06:50 17:38 23:36 WBC (3.8-10.6) k/uL Hgb (13.0-17.5) gm/dL MCHC (31.0-37.0) g/dL ABG pO2 (83-108) mmHg ABG Total CO2 (19-24) mmol/L ABG O2 Saturation (94-97) % Sodium (137-145) mmol/L Carbon Dioxide (22-30) mmol/L BUN (9-20) mg/dL Creatinine (0.66-1.25) mg/dL Glucose (74-99) mg/dL POC Glucose (mg/dL) 110 H 114 H (75-99) mg/dL Calcium 6.0 L* (8.4-10.2) mg/dL 06/10/21 06/10/21 06/10/21 Range/Units 05:48 06:14 06:16 WBC 11.3 H (3.8-10.6) k/uL Hgb 12.9 L (13.0-17.5) gm/dL MCHC 30.0 L (31.0-37.0) g/dL ABG pO2 116 H (83-108) mmHg ABG Total CO2 26 H (19-24) mmol/L ABG O2 Saturation 97.9 H (94-97) % Sodium (137-145) mmol/L Carbon Dioxide (22-30) mmol/L BUN (9-20) mg/dL Creatinine (0.66-1.25) mg/dL Glucose (74-99) mg/dL POC Glucose (mg/dL) 125 H (75-99) mg/dL Calcium (8.4-10.2) mg/dL 06/10/21 06/10/21 Range/Units 06:16 12:04 WBC (3.8-10.6) k/uL Hgb (13.0-17.5) gm/dL MCHC (31.0-37.0) g/dL ABG pO2 (83-108) mmHg ABG Total CO2 (19-24) mmol/L ABG O2 Saturation (94-97) % Sodium 132 L (137-145) mmol/L Carbon Dioxide 21 L (22-30) mmol/L BUN 6 L (9-20) mg/dL Creatinine 0.46 L (0.66-1.25) mg/dL Glucose 114 H (74-99) mg/dL POC Glucose (mg/dL) 122 H (75-99) mg/dL Calcium 8.3 L (8.4-10.2) mg/dL Microbiology - Last 24 Hours (Table) 06/09/21 07:36 Gram Stain - Preliminary Sputum Sputum Culture - Preliminary 06/08/21 16:42 Blood Culture - Preliminary Blood No Growth after 24 hours Assessment and Plan Assessment: Clinical Status epilepticus---resolved Seems due to alcohol withdrawal (since last drink was 24 hours prior to coming to hospital) History of seizures. Seems due to his chronic ongoing alcohol withdrawal. Cannot exclude in addition pure seizure activity (patient stated he has never been sober that he recalls). Alcohol use and last drink was 24 hours prior to presenting to hospital History of alcohol withdrawal Chronic ongoing tobacco use. Plan: Routine EEG on 06/08/2021: Abnormal routine EEG. The background is diffusely suppressed due to medication effect (IV Propofol, Versed and Ativan). Otherwise there is no focal slowing, epileptiform discharges or seizure on the EEG. Decreased Keppra from 1gm bid to 500mg 1 tab bid. We'll get an MRI of the brain with and without seizure protocol once the patient is more stable. Every hour neuro checks Seizure precautions seizure pads Continue thiamine 100 mg daily On Ativan 1 mg every 4 hours PRN for seizure Patient is on CIWA protocol and will defer management to primary team. Will defer electrolyte correction to primary team. Ionized calcium is 5.0. Patient was counseled on tobacco cessation for 3 minutes. Patient was counseled on alcohol cessation. Will defer the rest of medical management to the primary team and ICU team. The plan was discussed with the patient and his nurse. Chin Rayo M.D. Neuro-hospitalist Time with Patient: Less than 30
--- NOTE | 2021-06-10 14:24 | P.PN ---
Subjective Progress Note Date: 06/10/21 This is a 61-year-old male who was recently admitted with seizures and went into status epilepticus requiring mechanical ventilation with intubation and sedation and is closely monitored in the ICU with multiple medical consultations following. Neurology following as well as pulmonary informatics specialist and patient remains on mechanical vent with an FiO2 of 40% with a PEEP of 5. Family members at the bedside including brother and son reports the patient drinking daily at least 3-4 large 22 ounce cans of beer if not more daily and reports the patient never discontinuing drinking. Per nursing staff patient is being evaluated and assessed closely off sedation to monitor mental status with neurology following. Patient noted to have generalized swelling throughout. Patient is afebrile and continues on prophylactic antibiotic along with IV hydration and will continue. Maintain CIWA protocol and appreciate input and recommendations from neurology. Per family patient has poor social support and lives with another roommate who drinks daily heavily as well and will consult case management and social work along with PT/OT therapy once patient is extubated. 06/10/2021 Patient is seen in follow-up this morning was doing well on weaning and recently extubated approximately 30 minutes ago and currently maintained on 4 L via nasal cannula. Patient is lethargic although arousable and is responding to commands and questions appropriately. Neurology and pulmonary informatics specialist also following closely and patient is maintained on antiepileptics along with IV Zosyn. Strong suspicion for aspiration pneumonia and will continue IV Zosyn. Continue seizure precautions as well. Patient maintained on CIWA protocol and will continue. Continue with nothing by mouth diet for now until more awake and able to perform a bedside swallow. Wean FiO2 as tolerated. Patient is currently afebrile and denies any chest pain or shortness of breath. Will need case management and social work to follow for multiple social issues. Patient is also continued on Precedex low-dose and nursing staff working on weaning. Review of systems: Constitutional: No reports of fatigue, fever, or chills Cardiovascular: No reports of chest pain or palpitations Respiratory: No reports of shortness of breath or cough GI: No reports of nausea, vomiting, or diarrhea : No reports of dysuria or retention Neurovascular: reports of weakness All medications have been reviewed Active Medications Albuterol/Ipratropium (Ipratropium-Albuterol 3 Ml Neb) 3 ml INHALATION RT-Q2H PRN PRN Reason: Shortness Of Breath Or Wheezing Albuterol/Ipratropium (Ipratropium-Albuterol 3 Ml Neb) 3 ml INHALATION RT-Q4H [facility] Last Admin: 06/10/21 11:09 Dose: 3 ml Documented by: Fluconazole (Fluconazole 100 Mg Tab) 100 mg PO DAILY [facility]; Protocol Last Admin: 06/10/21 07:52 Dose: 100 mg Documented by: Heparin Sodium (Porcine) (Heparin Sodium,Porcine/Pf 5,000 Unit/0.5 Ml Syringe) 5,000 unit SQ Q12HR [facility] Last Admin: 06/10/21 07:52 Dose: 5,000 unit Documented by: Sodium Chloride (Saline 0.9%) 1,000 mls @ 100 mls/hr IV .Q10H [facility] Last Admin: 06/10/21 06:09 Dose: 100 mls/hr Documented by: Norepinephrine Bitartrate 4 mg (/ Sodium Chloride) 254 mls @ 12.961 mls/hr IV .[id number] [facility]; Protocol Last Admin: 06/10/21 08:43 Dose: Not Given Documented by: Piperacillin Sod/Tazobactam (Sod 3.375 gm/ Sodium Chloride) 100 mls @ 25 mls/hr IVPB Q8H [facility]; Protocol Last Admin: 06/10/21 09:17 Dose: 25 mls/hr Documented by: Dexmedetomidine HCl 400 mcg/ (IV Solution) 100 mls @ 3.435 mls/hr IV .Q24H [facility]; Protocol Last Titration: 06/10/21 07:00 Dose: 0.6 mcg/kg/hr, 10.305 mls/hr Documented by: Insulin Aspart (Insulin Aspart (Novolog) 100 Unit/Ml Vial) 0 unit SQ Q6H [facility]; Protocol Last Admin: 06/10/21 12:07 Dose: Not Given Documented by: Levetiracetam (Levetiracetam 500 Mg Tab) 500 mg PO Q12HR [facility] Lorazepam (Lorazepam 2 Mg/Ml Inj) 1 mg IV Q2HR PRN PRN Reason: CIWA 8 or 9 Lorazepam (Lorazepam 2 Mg/Ml Inj) 1 mg IV Q1HR PRN PRN Reason: CIWA 10 to 15 Lorazepam (Lorazepam 2 Mg/Ml Inj) 1 mg IV Q4HR PRN PRN Reason: Seizures Last Admin: 06/09/21 23:34 Dose: 1 mg Documented by: Naloxone HCl (Naloxone 0.4 Mg/Ml 1 Ml Vial) 0.2 mg IV Q2M PRN PRN Reason: Opioid Reversal Nicotine (Nicotine 14mg/24hr Patch) 1 patch TRANSDERM DAILY [facility] Last Admin: 06/10/21 07:52 Dose: 1 patch Documented by: Nystatin (Nystatin 100,000unit/Gm Cream 30 Gm Tube) 1 applic TOPICAL BID PRN; Protocol PRN Reason: Skin Irritation Last Admin: 06/09/21 00:10 Dose: 1 applic Documented by: Pantoprazole Sodium (Pantoprazole 40 Mg/10 Ml Vial) 40 mg IVP DAILY [facility] Last Admin: 06/10/21 07:52 Dose: 40 mg Documented by: Thiamine HCl (Thiamine 100 Mg Tab) 100 mg PO DAILY [facility] PHYSICAL EXAMINATION: GENERAL: The patient is lethargic although awake and alert and oriented 2. Mildly sedated with Precedex, extubated 30 minutes prior and maintained on 4 L via nasal cannula HEENT: Pupils are round and equally reacting to light. EOMI. no scleral icterus. No conjunctival pallor. Normocephalic, atraumatic. No pharyngeal erythema. No thyromegaly. CARDIOVASCULAR: S1 and S2 muffled PULMONARY: diminished breath sounds bilaterally with some expiratory wheezing and some scattered rhonchi and crackles noted. ABDOMEN: soft. Nontender on exam. non-distended, normoactive bowel sounds. No palpable organomegaly. MUSCULOSKELETAL: No joint swelling or deformity. EXTREMITIES: No cyanosis, clubbing, or pedal edema. NEUROLOGICAL: Gross neurological examination did not reveal any focal deficits. diffuse weakness SKIN: No rashes. Assessment: Acute seizure disorder as well as status epilepticus with hypoxic respiratory failure, on mechanical ventilation and extubated today on 06/10/2021 Acute hypoxic respiratory failure secondary to status epilepticus Acute Aspiration pneumonia Hyponatremia Hypokalemia History of EtOH History of chronic obstructive pulmonary disease Right leg cellulitis GI prophylaxis DVT prophylaxis Full code Plan: Recommend to continue with current medications and management per pulmonary informatics specialist and neurology. Patient was recently just extubated 30 minutes prior to exam and maintained on 4 L. Patient is awake and alert although somewhat lethargic and maintained on Precedex. Patient is able to conversate and answer questions appropriately and following simple commands. Patient continues on IV Zosyn and strongly suspicious for aspiration pneumonia. Neurology following as well and will continue neurological assessments. Continue with neuro checks and close monitoring in the ICU for now. Patient remains on Precedex and working on weaning per nursing staff. Recommend to continue with CIWA protocol and monitor closely. Recommend repeat labs and replace electrolytes per protocol. Continue with nothing by mouth for now until more stable and able to assess bedside swallow. Wean FiO2 as tolerated. Family reports poor social support and paiz ging around other people that use illicit drugs and drink heavy alcohol and will need to discuss further with social work and case management about possible alcohol rehab. Patient continues in critical condition and will continue to monitor closely. Due to multiple complex medical issues, prognosis is guarded. The impression and plan of care has been dictated by Milvia Hemphill, nurse practitioner as directed. MD Micheline I have performed a history and examination and MDM of this patient, discussed the same with the dictator, and agree with the dictator's assessment and plan as written ,documented as a scribe. Based on total visit time, I have performed more than 50% of the visit. Any additional findings or plans will be noted. Objective - Vital Signs Vital signs: Vital Signs Temp 97.1 F L 06/10/21 12:00 Pulse 104 H 06/10/21 12:00 Resp 18 06/10/21 12:00 BP 128/84 06/10/21 12:00 Pulse Ox 87 L 06/10/21 12:00 Intake & Output 06/09/21 06/10/21 06/10/21 18:59 06:59 18:59 Intake Total 7492.012 6399.079 700.401 Output Total 467 957 3782 Balance 638.003 609.079 -2774.599 Weight 70.3 kg Intake: IV 1100 1200 600 Sodium Chloride 0.9% 1, 1100 1200 600 000 ml @ 100 mls/hr IV . Q10H [facility] Rx#:[id number] Intake, IV Titration 248.003 149.079 100.401 Amount Dexmedetomidine/0.9% NaCl 8.931 149.079 0.401 (Pmx) 400 mcg In Empty Bag 1 bag @ 0.2 MCG/KG/HR 3.435 mls/hr IV .Q24H [facility] Rx#:[id number] Midazolam HCl 50 mg In 35.383 Sodium Chloride 0.9% 40 ml @ 1 MG/HR 1 mls/hr IV .Q24H [facility] Rx#:[id number] Norepinephrine 4 mg In 157.048 Sodium Chloride 0.9% 250 ml @ 0.05 MCG/KG/MIN 12. 961 mls/hr IV .[id number] [facility] Rx#:[id number] Piperacillin-Tazobactam 3 100 .375 gm In Sodium Chloride 0.9% 100 ml @ 25 mls/hr IVPB Q8H [facility] Rx#: [id number] propofoL 1,000 mg In 46.641 Empty Bag 1 bag @ 5 MCG/ KG/MIN 2.041 mls/hr IV . Q24H [facility] Rx#:[id number] Output: Gastric Drainage 200 400 Urine [phone] Other: Voiding Method Indwelling Catheter Indwelling Catheter Indwelling Catheter - Labs CBC & Chem 7: 06/10/21 06:16 06/10/21 06:16 Labs: Abnormal Lab Results - Last 24 Hours (Table) 06/09/21 06/09/21 06/09/21 Range/Units 06:50 17:38 23:36 WBC (3.8-10.6) k/uL Hgb (13.0-17.5) gm/dL MCHC (31.0-37.0) g/dL ABG pO2 (83-108) mmHg ABG Total CO2 (19-24) mmol/L ABG O2 Saturation (94-97) % Sodium (137-145) mmol/L Carbon Dioxide (22-30) mmol/L BUN (9-20) mg/dL Creatinine (0.66-1.25) mg/dL Glucose (74-99) mg/dL POC Glucose (mg/dL) 110 H 114 H (75-99) mg/dL Calcium 6.0 L* (8.4-10.2) mg/dL 06/10/21 06/10/21 06/10/21 Range/Units 05:48 06:14 06:16 WBC 11.3 H (3.8-10.6) k/uL Hgb 12.9 L (13.0-17.5) gm/dL MCHC 30.0 L (31.0-37.0) g/dL ABG pO2 116 H (83-108) mmHg ABG Total CO2 26 H (19-24) mmol/L ABG O2 Saturation 97.9 H (94-97) % Sodium (137-145) mmol/L Carbon Dioxide (22-30) mmol/L BUN (9-20) mg/dL Creatinine (0.66-1.25) mg/dL Glucose (74-99) mg/dL POC Glucose (mg/dL) 125 H (75-99) mg/dL Calcium (8.4-10.2) mg/dL 06/10/21 06/10/21 Range/Units 06:16 12:04 WBC (3.8-10.6) k/uL Hgb (13.0-17.5) gm/dL MCHC (31.0-37.0) g/dL ABG pO2 (83-108) mmHg ABG Total CO2 (19-24) mmol/L ABG O2 Saturation (94-97) % Sodium 132 L (137-145) mmol/L Carbon Dioxide 21 L (22-30) mmol/L BUN 6 L (9-20) mg/dL Creatinine 0.46 L (0.66-1.25) mg/dL Glucose 114 H (74-99) mg/dL POC Glucose (mg/dL) 122 H (75-99) mg/dL Calcium 8.3 L (8.4-10.2) mg/dL Microbiology - Last 24 Hours (Table) 06/09/21 07:36 Gram Stain - Preliminary Sputum Sputum Culture - Preliminary 06/08/21 16:42 Blood Culture - Preliminary Blood No Growth after 24 hours 06/08/21 21:50 Gram Stain - Preliminary Foot - Right Wound Culture - Preliminary
[2021-06-10] MEDS: LORazepam 2 MG/ML INJ IV PRN (17:09)
[2021-06-10 17:13] LABS: Glucose,Whole Blood 130 mg/dL (75-99)
[2021-06-10] MEDS: levETIRAcetam 500 MG TAB PO SCH (20:30)
[2021-06-10 20:58] LABS: Glucose,Whole Blood 123 mg/dL (75-99)
[2021-06-11] MEDS: IPRATROPIUM-ALBUTEROL 3 ML NEB INHALATION SCH ×5 (00:39→19:42)
[2021-06-11] MEDS: PIPERACILLIN-TAZOBACTAM 3.375 GM in SODIUM CHLORIDE 0.9% 100 ML IVPB SCH ×3 (01:22→17:36)
[2021-06-11] MEDS: DEXMEDETOMIDINE/0.9% NACL(PMX) 400 MCG in EMPTY BAG 1 BAG IV SCH (02:34)
[2021-06-11 06:09] LABS: HCT 34.7 % (39.0-53.0); HGB 10.9 gm/dL (13.0-17.5); Hypochromasia Marked; MCH 30.1 pg (25.0-35.0); MCHC 31.4 g/dL (31.0-37.0); MCV 95.9 fL (80.0-100.0); Mean Platelet Volume 7.9; Platelet Count 323 k/uL (150-450); RBC 3.61 m/uL (4.30-5.90); RDW 14.7 % (11.5-15.5); WBC 10.7 k/uL (3.8-10.6)
[2021-06-11 06:38] LABS: African American GFR (CKD) >90 (>60 ml/min/1.73 sqM); Anion Gap 5 mmol/L; Blood Urea Nitrogen 5 mg/dL (9-20); Calcium 7.9 mg/dL (8.4-10.2); Carbon Dioxide 26 mmol/L (22-30); Chloride 104 mmol/L (98-107); Glucose 109 mg/dL (74-99); Magnesium 1.5 mg/dL (1.6-2.3); Non-African American GFR(CKD) >90 (>60 ml/min/1.73 sqM); Potassium 3.3 mmol/L (3.5-5.1); Sodium 135 mmol/L (137-145)
[2021-06-11 07:09] LABS: Glucose,Whole Blood 110 mg/dL (75-99)
--- NOTE | 2021-06-11 07:12 | XR ---
EXAMINATION TYPE: XR chest 1V portable DATE OF EXAM: 06/11/2021 COMPARISON: 06/10/2021 HISTORY: Shortness of breath TECHNIQUE: Frontal and lateral views of the chest are obtained. FINDINGS: Endotracheal and NG tubes have been removed. No evidence for pneumothorax. Scattered senescent parenchymal changes noted. Hyperinflation compatible with COPD. Improving aeration left lower lobe with the persistent infiltrate or atelectasis right lower lobe and tiny right-sided effusion. Heart size is stable. Mediastinal structures are stable and grossly unremarkable. No evidence for hilar prominence. Degenerative changes dorsal spine. IMPRESSION: 1. Improving aeration left lower lobe with the persistent infiltrate or atelectasis right lower lobe and tiny right-sided effusion.
[2021-06-11] MEDS: INSULIN ASPART (NovoLOG) 100 UNIT/ML VIAL SQ SCH ×2 (07:17→12:33)
[2021-06-11] MEDS ORDERED: Magnesium Replacement Protocol 1 EACH MISC MISCELLANE PRN (07:43)
[2021-06-11] MEDS ORDERED: Potassium Replacement Protocol 1 EACH MISC MISCELLANE PRN (07:44)
[2021-06-11] MEDS: NOREPINEPHRINE 4 MG in SODIUM CHLORIDE 0.9% 250 ML IV SCH (07:46)
[2021-06-11] MEDS ORDERED: POTASSIUM CHLORIDE 10 MEQ in WATER FOR INJECTION 1 100ML.BAG IVPB SCH (08:00)
[2021-06-11] MEDS: SODIUM CHLORIDE 0.9% 1,000 ML IV SCH ×2 (08:03→12:33)
[2021-06-11] MEDS: NICOTINE 14MG/24HR PATCH TRANSDERM SCH (08:04)
[2021-06-11] MEDS: MAGNESIUM SULFATE-D5W PMX 1 GM in DEXTROSE/WATER 1 100ML.BAG IVPB SCH ×2 (08:06→12:33)
[2021-06-11] MEDS: HEPARIN SODIUM,PORCINE/PF 5,000 UNIT/0.5 ML SYRINGE SQ SCH ×2 (08:16→19:33)
[2021-06-11] MEDS: levETIRAcetam 500 MG TAB PO SCH (08:16)
[2021-06-11] MEDS: THIAMINE 100 MG TAB PO SCH (08:16)
[2021-06-11] MEDS: PANTOPRAZOLE 40 MG/10 ML VIAL IVP SCH (08:16)
[2021-06-11] MEDS: FLUCONAZOLE 100 MG TAB PO SCH (08:16)
[2021-06-11] MEDS: METOPROLOL TARTRATE 50 MG TAB PO SCH ×2 (08:51→19:33)
[2021-06-11] MEDS: lisinopriL 5 MG TAB PO SCH (08:51)
[2021-06-11] MEDS: POTASSIUM CHLORIDE ER 20 MEQ TAB.ER PO SCH ×2 (09:30→11:19)
--- NOTE | 2021-06-11 09:55 | P.PN ---
Subjective Progress Note Date: 06/11/21 The patient is seen at bedside and no further seizure-like episodes. He continues to be feeling well. He again states he has chronic ongoing alcohol problem and has never been sober. He states all his seizure-like episodes are due to alcohol withdrawal. There is no family history of seizure. Objective - Vital Signs Vital signs: Vital Signs Temp 98.5 F 06/11/21 04:00 Pulse 75 06/11/21 07:30 Resp 20 06/11/21 07:30 BP 110/72 06/11/21 07:30 Pulse Ox 97 06/11/21 07:30 Intake & Output 06/10/21 06/11/21 06/11/21 18:59 06:59 18:59 Intake Total 0565.386 6313.146 157.472 Output Total 4400 345 20 Balance -2900.000 1021.146 137.472 Weight 71.2 kg Intake: IV 1300 1150 150 Sodium Chloride 0.9% 1, 1300 1150 150 000 ml @ 100 mls/hr IV . Q10H [facility] Rx#:[id number] Intake, IV Titration 200.000 216.146 7.472 Amount Dexmedetomidine/0.9% NaCl 100.000 116.146 7.472 (Pmx) 400 mcg In Empty Bag 1 bag @ 0.2 MCG/KG/HR 3.435 mls/hr IV .Q24H [facility] Rx#:[id number] Piperacillin-Tazobactam 3 100 100 .375 gm In Sodium Chloride 0.9% 100 ml @ 25 mls/hr IVPB Q8H [facility] Rx#: [id number] Output: Urine 4400 345 20 Other: Voiding Method Indwelling Catheter Indwelling Catheter - Exam GENERAL: The patient is lying in bed and not in acute distress. NEUROLOGICAL: Higher mental function: The patient is awake, alert, oriented to self and place. He correctly states the month but states the year is 1921. He is identifying objects correctly (pen, watch, cup). He is following simple commands. No neglect or aphasia. Cranial nerves: The pupils are round, equal and reactive to light. EOM is intact and no nystagmus. No facial weakness. Has mild hoarseness of his voice. Motor: The strength is lifting all extremities above gravity. No spontaneous movement noted. Cerebellum: With finger to nose has end action tremor bilaterally. Sensation: Normal to touch. Reflexes (right/left): 1+ throughout. WORK-UP: UDS: +Benzo and Marijuana. Serum alcohol level <10. Otherwise rest is not detected. Routine EEG on 06/08/2021: Abnormal routine EEG. The background is diffusely suppressed due to medication effect (IV Propofol, Versed and Ativan). Otherwise there is no focal slowing, epileptiform discharges or seizure on the EEG. Recent imaging: CT of the head earlier today is reported as there is no acute intracranial hemorrhage, mass effect or gross space occupying lesion. I personally reviewed the CT of the head and I agree with the report CT cervical spine earlier today was reported as there is no acute fracture or dislocation evident in the cervical spine. - Labs CBC & Chem 7: 06/11/21 05:24 06/11/21 05:24 Labs: Abnormal Lab Results - Last 24 Hours (Table) 06/10/21 06/10/21 06/10/21 Range/Units 12:04 17:12 20:56 WBC (3.8-10.6) k/uL RBC (4.30-5.90) m/uL Hgb (13.0-17.5) gm/dL Hct (39.0-53.0) % Sodium (137-145) mmol/L Potassium (3.5-5.1) mmol/L BUN (9-20) mg/dL Creatinine (0.66-1.25) mg/dL Glucose (74-99) mg/dL POC Glucose (mg/dL) 122 H 130 H 123 H (75-99) mg/dL Calcium (8.4-10.2) mg/dL Magnesium (1.6-2.3) mg/dL 06/11/21 06/11/21 06/11/21 Range/Units 05:24 05:24 07:07 WBC 10.7 H (3.8-10.6) k/uL RBC 3.61 L (4.30-5.90) m/uL Hgb 10.9 L (13.0-17.5) gm/dL Hct 34.7 L (39.0-53.0) % Sodium 135 L (137-145) mmol/L Potassium 3.3 L (3.5-5.1) mmol/L BUN 5 L (9-20) mg/dL Creatinine 0.51 L (0.66-1.25) mg/dL Glucose 109 H (74-99) mg/dL POC Glucose (mg/dL) 110 H (75-99) mg/dL Calcium 7.9 L (8.4-10.2) mg/dL Magnesium 1.5 L (1.6-2.3) mg/dL Microbiology - Last 24 Hours (Table) 06/08/21 21:50 Gram Stain - Preliminary Foot - Right Wound Culture - Preliminary Presumptive Staph aureus 06/08/21 16:42 Blood Culture - Preliminary Blood No Growth after 48 hours 06/09/21 07:36 Gram Stain - Preliminary Sputum Sputum Culture - Preliminary Assessment and Plan Assessment: Clinical Status epilepticus---resolved Seems due to alcohol withdrawal (since last drink was 24 hours prior to coming to hospital) History of seizures. Seems due to his chronic ongoing alcohol withdrawal. (patient stated he has never been sober and all his episodes is when he was not drinking alcohol). Alcohol use and last drink was 24 hours prior to presenting to hospital History of alcohol withdrawal Chronic ongoing tobacco use. Plan: Routine EEG on 06/08/2021: Abnormal routine EEG. The background is diffusely suppressed due to medication effect (IV Propofol, Versed and Ativan). Otherwise there is no focal slowing, epileptiform discharges or seizure on the EEG. Stopped Keppra which was started during this admission (currently on 500mg 1 tab bid). No need for further neurological work-up since it is felt this is due to alcohol withdrawal. He was counseled on alcohol cessation and to abstain from alcohol and he is sober and continues to have seizure then would recommend further work- up such as: MRI Brain w/ and w/o and prolonged EEG. Q4 hour neuro checks. Seizure precautions seizure pads Continue thiamine 100 mg daily On Ativan 1 mg every 4 hours PRN for seizure Patient is on CIWA protocol and will defer management to primary team. Patient was counseled on tobacco cessation for 3 minutes. Patient was counseled on alcohol cessation. Will defer the rest of medical management to the primary team and ICU team. Recommend patient to follow-up with neurologist as outpatient within 2-3 weeks. The plan was discussed with the patient and his nurse. There is no further neurological work-up. Please notify neurology team if any further concerns. Chin Rayo M.D. Neuro-hospitalist Time with Patient: Less than 30
--- NOTE | 2021-06-11 10:58 | P.PN ---
Subjective Progress Note Date: 06/11/21 Principal diagnosis: Acute hypoxic respiratory failure secondary to status epilepticus This is a 61-year-old male patient with a history of hypertension, alcohol abuse and previous seizures, wound to the right foot. He had been admitted back in February 2021 for acute alcohol intoxication and syncopal episodes. He also had a wound to the right foot. He had left AGAINST MEDICAL ADVICE at that time. He presented here to the emergency room yesterday morning by EMS after suffering a fall and seizure. He had stated he has a seizure about every 3 months and had been compliant with his medications. He ended up being discharged from the emergency room as he was quite anxious to leave. CT scan of the brain revealed no intracranial hemorrhage or mass effect. He was brought back to the emergency room shortly after arriving home and had repeat seizure that lasted approximat shireen 2 minutes. He was post ictal upon arrival and alert and oriented times one. He had admitted to drinking 3-4 beers on a daily basis. He did continue to have seizures in the emergency department and was intubated and transferred to the intensive care unit. He is seen today in consultation. Currently on the mechanical ventilator with settings of assist control of 16, tidal volume 400, FiO2 40% and a PEEP of 5. Morning blood gases revealed a PaO2 of 166, pCO2 43 and a pH of 7.35. that was on 50% FiO2. White count 13.4. Hemoglobin 11.6. Sodium 131. Potassium 3.1. Bicarb 17. BUN 3. Creatinine 0.38. Calcium 6.0. Magnesium 1.3. Right foot wound culture pending. Chest x-ray shows pulmonary vascular congestion with small effusions and adjacent atelectasis/consolidation. Suspicious for aspiration pneumonia. EEG revealed slowing due to medication effect. Otherwise no focal slowing, epileptic form discharges or seizure on the EEG. He has been initiated on Dilantin and Keppra. He is currently sedated on propofol at 20 mcg/kg/m. First set at 10 mg per hour. Norepinephrine at 0.11 mcg/kg/m. Normal saline at 100 ML's per hour. Patient was reevaluated today on 06/10/21, patient remains in the ICU, intubated and mechanically ventilated, his ventilator settings were reviewed, patient is on Precedex, patient had no evidence of seizures over the last 24 hours, and he has been on Precedex for the last 24 hours. He is arousable, follows simple instructions, and he seems to be tolerating CPAP quite well for the last hour or so. Labs today showed WBC count of 11.3 hemoglobin of 12.9 electrolytes are normal renal profile is normal chest x-ray showed mild central vascular co ngestion with bibasilar infiltrates/atelectasis. I basically suspect that the patient had some sort of aspiration pneumonia. Patient was reevaluated today on 06/11/2021, patient remains in the ICU, patient was extubated yesterday uneventfully, he seems to be doing very well. Patient has been off Precedex this morning, he remains on Zosyn for presumptive aspiration pneumonia, he is actually on 3 L nasal cannula, in no distress, no seizure activity over the last 24 hours, his IV fluids at 100 mL/h and I cut it down to 50 mL per hour. Patient remains on the CIWA protocol. Today I plan to transfer the patient out of the ICU to a regular medical floor, however will continue seizure precautions, and continue the CIWA protocol. Objective - Vital Signs Vital signs: Vital Signs Temp 98.5 F 06/11/21 04:00 Pulse 100 06/11/21 10:49 Resp 20 06/11/21 07:30 BP 110/72 06/11/21 07:30 Pulse Ox 97 06/11/21 07:30 Intake & Output 06/10/21 06/11/21 06/11/21 18:59 06:59 18:59 Intake Total 4932.969 0023.146 157.472 Output Total 4400 345 20 Balance -2900.000 1021.146 137.472 Weight 71.2 kg Intake: IV 1300 1150 150 Sodium Chloride 0.9% 1, 1300 1150 150 000 ml @ 100 mls/hr IV . Q10H [facility] Rx#:[id number] Intake, IV Titration 200.000 216.146 7.472 Amount Dexmedetomidine/0.9% NaCl 100.000 116.146 7.472 (Pmx) 400 mcg In Empty Bag 1 bag @ 0.2 MCG/KG/HR 3.435 mls/hr IV .Q24H [facility] Rx#:[id number] Piperacillin-Tazobactam 3 100 100 .375 gm In Sodium Chloride 0.9% 100 ml @ 25 mls/hr IVPB Q8H [facility] Rx#: [id number] Output: Urine 4400 345 20 Other: Voiding Method Indwelling Catheter Indwelling Catheter - Exam Physical Exam: Revealed a 61-year-old white male in no distress. Head: Atraumatic, normocephalic. HEENT:[Neck is supple.] [No neck masses.] [No thyromegaly.] [No JVD.] Chest: [Clear throughout, no crackles, no rhonchi, no wheezes.] Cardiac Exam: [Normal S1 and S2, no S3 gallop, no murmur.] Abdomen: [Soft, nontender, no megaly, no rebound, no guarding, normal bowel sounds.] Extremities: [No clubbing, no edema, no cyanosis.] Neurological Exam: [No focal neurologic deficit.] Alert oriented 3. - Labs CBC & Chem 7: 06/11/21 05:24 06/11/21 05:24 Labs: Abnormal Lab Results - Last 24 Hours (Table) 06/10/21 06/10/21 06/10/21 Range/Units 12:04 17:12 20:56 WBC (3.8-10.6) k/uL RBC (4.30-5.90) m/uL Hgb (13.0-17.5) gm/dL Hct (39.0-53.0) % Sodium (137-145) mmol/L Potassium (3.5-5.1) mmol/L BUN (9-20) mg/dL Creatinine (0.66-1.25) mg/dL Glucose (74-99) mg/dL POC Glucose (mg/dL) 122 H 130 H 123 H (75-99) mg/dL Calcium (8.4-10.2) mg/dL Magnesium (1.6-2.3) mg/dL 06/11/21 06/11/21 06/11/21 Range/Units 05:24 05:24 07:07 WBC 10.7 H (3.8-10.6) k/uL RBC 3.61 L (4.30-5.90) m/uL Hgb 10.9 L (13.0-17.5) gm/dL Hct 34.7 L (39.0-53.0) % Sodium 135 L (137-145) mmol/L Potassium 3.3 L (3.5-5.1) mmol/L BUN 5 L (9-20) mg/dL Creatinine 0.51 L (0.66-1.25) mg/dL Glucose 109 H (74-99) mg/dL POC Glucose (mg/dL) 110 H (75-99) mg/dL Calcium 7.9 L (8.4-10.2) mg/dL Magnesium 1.5 L (1.6-2.3) mg/dL Microbiology - Last 24 Hours (Table) 06/09/21 07:36 Gram Stain - Final Sputum Sputum Culture - Final 06/08/21 21:50 Gram Stain - Preliminary Foot - Right Wound Culture - Preliminary Presumptive Staph aureus 06/08/21 16:42 Blood Culture - Preliminary Blood No Growth after 48 hours Assessment and Plan Assessment: Impression: Acute hypoxic respiratory failure secondary to status epilepticus requiring intubation and mechanical ventilation mostly to protect the airways. Extubated on 06/10/2021, and tolerated the extubation well. Acute aspiration pneumonia is strongly suspected. Remains on Zosyn. Will eventually transitioned To Augmentin. Positive drug screen for benzodiazepine and THC. History of chronic right foot cellulitis. Tobacco dependence syndrome. Possible alcohol withdrawal seizures Recommendation: Will transfer patient out of the ICU to regular medical floor. Continue seizure precautions. Patient will remain on antibiotics./Zosyn. Continue Dilantin and Keppra. Continue CIWA protocol. Continue bronchodilators. Continue GI and DVT prophylaxis. We'll continue to follow Time with Patient: Less than 30
[2021-06-11] MEDS: cloNIDine HCL 0.1 MG TAB PO SCH ×2 (13:23→19:34)
[2021-06-11 20:41] LABS: Glucose,Whole Blood 130 mg/dL (75-99)
[2021-06-12] MEDS: PIPERACILLIN-TAZOBACTAM 3.375 GM in SODIUM CHLORIDE 0.9% 100 ML IVPB SCH ×3 (01:54→17:08)
[2021-06-12] MEDS ORDERED: FUROSEMIDE 10 MG/ML 4 ML VIAL IV STA (07:18)
[2021-06-12] MEDS: PANTOPRAZOLE 40 MG/10 ML VIAL IVP SCH (07:25)
[2021-06-12] MEDS: METOPROLOL TARTRATE 50 MG TAB PO SCH ×2 (07:25→19:28)
[2021-06-12] MEDS: HEPARIN SODIUM,PORCINE/PF 5,000 UNIT/0.5 ML SYRINGE SQ SCH ×2 (07:25→19:27)
[2021-06-12] MEDS: NICOTINE 14MG/24HR PATCH TRANSDERM SCH ×2 (07:26→07:29)
[2021-06-12] MEDS: FLUCONAZOLE 100 MG TAB PO SCH (07:26)
[2021-06-12] MEDS: THIAMINE 100 MG TAB PO SCH (07:26)
[2021-06-12] MEDS: lisinopriL 5 MG TAB PO SCH (07:26)
[2021-06-12] MEDS: cloNIDine HCL 0.1 MG TAB PO SCH ×2 (07:26→19:28)
[2021-06-12 07:45] LABS: Glucose,Whole Blood 127 mg/dL (75-99)
--- NOTE | 2021-06-12 07:45 | XR ---
EXAMINATION TYPE: XR chest 1V portable DATE OF EXAM: 06/12/2021 HISTORY: Shortness of breath. COMPARISON: 06/11/2021 TECHNIQUE: Single view of the chest is submitted. FINDINGS: Demonstrated are scattered senescent parenchymal change. Progressive patchy perihilar and right lower lobe infiltrate. The heart is stable. Hilar and mediastinal structures are within normal limits. Degenerative changes are seen of the dorsal spine. IMPRESSION: 1. Progressive patchy perihilar and right lower lobe infiltrate.
[2021-06-12] MEDS ORDERED: cloNIDine HCL 0.1 MG TAB PO STA (07:47)
[2021-06-12] MEDS: LORazepam 2 MG/ML INJ IV PRN (07:57)
[2021-06-12] MEDS ORDERED: FUROSEMIDE 10 MG/ML 10 ML VIAL IV STA (08:41)
[2021-06-12 08:51] LABS: HGB 10.6 g/dL (13.0-17.0); MCHC 31.2 g/dL (32.0-37.0); MCV 89.9 fL (80.0-97.0); Mean Platelet Volume 10.4 fL (9.5-12.2); NRBC Per 100 WBC 0 /100 WBCS (0.0-0.0); Platelet Count 382 X 10*3/uL (140-440); RBC 3.78 X 10*6/uL (4.40-5.60); RDW 15.7 % (11.5-14.5); WBC 12.96 X 10*3/uL (4.50-10.00)
[2021-06-12] MEDS: IPRATROPIUM-ALBUTEROL 3 ML NEB INHALATION SCH ×4 (09:00→19:12)
[2021-06-12 09:01] LABS: African American GFR (CKD) 138.7 (60.0-200.0); Anion Gap 16.5 mmol/L (10.00-18.00); BUN/Creat Ratio 11.29 Ratio (12.00-20.00); Blood Urea Nitrogen 5.3 mg/dL (9.0-27.0); Calcium 8.5 mg/dL (8.7-10.3); Carbon Dioxide 21.2 mmol/L (20.0-27.5); Magnesium 1.8 mg/dL (1.5-2.4); Non-African American GFR(CKD) 119.7 (60.0-200.0); Potassium 3.3 mmol/L (3.5-5.5)
[2021-06-12 09:18] LABS: Basophils # (A) 0.13 X 10*3/uL (0.00-0.10); Eosinophils # (A) 0.13 X 10*3/uL (0.04-0.35); Immature Grans, Automated 0.5 %; Lymphocytes # (A) 3.17 X 10*3/uL (0.90-5.00); Lymphocytes % (A) 24.5 %; Monocytes # (A) 1.84 X 10*3/uL (0.20-1.00); Monocytes % (A) 14.2 %; Neutrophils # (A) 7.63 X 10*3/uL (1.80-7.70); Neutrophils % (A) 58.8 %
[2021-06-12 09:19] LABS: RBC Morphology NORMAL
--- NOTE | 2021-06-12 11:11 | P.PN ---
Subjective Progress Note Date: 06/12/21 Principal diagnosis: Shortness of breath, hypoxia This is a 61-year-old male patient with a history of hypertension, alcohol abuse and previous seizures, wound to the right foot. He had been admitted back in February 2021 for acute alcohol intoxication and syncopal episodes. He also had a wound to the right foot. He had left AGAINST MEDICAL ADVICE at that time. He presented here to the emergency room yesterday morning by EMS after suffering a fall and seizure. He had stated he has a seizure about every 3 months and had been compliant with his medications. He ended up being discharged from the emergency room as he was quite anxious to leave. CT scan of the brain revealed no intracranial hemorrhage or mass effect. He was brought back to the emergency room shortly after arriving home and had repeat seizure that lasted approximately 2 minutes. He was post ictal upon arrival and alert and oriented times one. He had admitted to drinking 3-4 beers on a daily basis. He did continue to have seizures in the emergency department and was intubated and transferred to the intensive care unit. He is seen today in consultation. Currently on the mechanical ventilator with settings of assist control of 16, tidal volume 400, FiO2 40% and a PEEP of 5. Morning blood gases revealed a PaO2 of 166, pCO2 43 and a pH of 7.35. that was on 50% FiO2. White count 13.4. Hemoglobin 11.6. Sodium 131. Potassium 3.1. Bicarb 17. BUN 3. Creatinine 0.38. Calcium 6.0. Magnesium 1.3. Right foot wound culture pending. Chest x- ray shows pulmonary vascular congestion with small effusions and adjacent atelectasis/consolidation. Suspicious for aspiration pneumonia. EEG revealed slowing due to medication effect. Otherwise no focal slowing, epileptic form discharges or seizure on the EEG. He has been initiated on Dilantin and Keppra. He is currently sedated on propofol at 20 mcg/kg/m. First set at 10 mg per hour. Norepinephrine at 0.11 mcg/kg/m. Normal saline at 100 ML's per hour. Patient was reevaluated today on 06/10/21, patient remains in the ICU, intubated and mechanically ventilated, his ventilator settings were reviewed, patient is on Precedex, patient had no evidence of seizures over the last 24 hours, and he has been on Precedex for the last 24 hours. He is arousable, follows simple instructions, and he seems to be tolerating CPAP quite well for the last hour or so. Labs today showed WBC count of 11.3 hemoglobin of 12.9 electrolytes are normal renal profile is normal chest x-ray showed mild central vascular congestion with bibasilar infiltrates/atelectasis. I basically suspect that the patient had some sort of aspiration pneumonia. Patient was reevaluated today on 06/11/2021, patient remains in the ICU, patient was extubated yesterday uneventfully, he seems to be doing very well. Patient has been off Precedex this morning, he remains on Zosyn for presumptive aspiration pneumonia, he is actually on 3 L nasal cannula, in no distress, no s eizure activity over the last 24 hours, his IV fluids at 100 mL/h and I cut it down to 50 mL per hour. Patient remains on the CIWA protocol. Today I plan to transfer the patient out of the ICU to a regular medical floor, however will continue seizure precautions, and continue the CIWA protocol. 06/12/2021 patient seen in follow-up on medical surgical floor, patient was noted to be quite short of breath this morning, audibly congested, increasingly tachypneic. His chest x-ray today shows progressive patchy perihilar and right lower lobe infiltrate. Subsequently the patient was given a dose of IV Lasix 60 mg, he was placed on BiPAP support with pressures of 12 and 6 on FiO2 of 100%, he has diuresed 1.7 L in the urine output since then, he is breathing much more comfortably, less tachypneic, his mentation is appropriate, he is answering simple questions. Lung sounds reveal diffuse rhonchi, but overall he admits his breathing is much better. He can even be trialed on high flow nasal cannula. Today's lab 7 reviewed, his white blood cell count is 12.9, hemoglobin is 10.6, sodium is 141, potassium is 3.3, and aggressive electrolyte serum within normal limits, BUN of 5.3, creatinine 0.5, his proBNP came back significantly elevated at 14,652. Patient states he usually takes maintenance dose of Lasix at home. He thinks it usually takes 40 mg on a daily basis although this is not on his home medication list, his last echocardiogram from 03/24/2021 showed EF of 40- 45%, moderate concentric LVH, trace to mild aortic regurgitation, mild mitral regurgitation, mild tricuspid regurgitation, and right ventricular systolic pressure of 47.2 mmHg. He also continues on Zosyn for possibility of aspiration related pneumonia. His sputum culture has shown no growth, but his right foot wound culture showing presumptive staph aureus, final culture is pending at this time. Mentation is much more appropriate, patient is calm and cooperative, no tremors no seizure activity noted. Objective - Vital Signs Vital signs: Vital Signs Temp 97.9 F 06/12/21 01:53 Pulse 127 H 06/12/21 09:15 Resp 22 06/12/21 07:29 BP 146/80 06/12/21 01:53 Pulse Ox 93 L 06/12/21 01:53 Intake & Output 06/11/21 06/12/21 06/12/21 18:59 06:59 18:59 Intake Total 830.124 1375 Output Total 220 Balance 619.034 9045 Intake: IV 925 700 Magnesium Sulfate-D5w Pmx 200 1 gm In Dextrose/Water 1 100ml.bag @ 100 mls/hr IVPB Q1H [facility] Rx#: [id number] Piperacillin-Tazobactam 3 100 100 .375 gm In Sodium Chloride 0.9% 100 ml @ 25 mls/hr IVPB Q8H [facility] Rx#: [id number] Sodium Chloride 0.9% 1, 625 600 000 ml @ 50 mls/hr IV . Q20H [facility] Rx#:[id number] Intake, IV Titration 7.472 Amount Dexmedetomidine/0.9% NaCl 7.472 (Pmx) 400 mcg In Empty Bag 1 bag @ 0.2 MCG/KG/HR 3.435 mls/hr IV .Q24H [facility] Rx#:[id number] Oral 600 Output: Urine 220 Other: Voiding Method Indwelling Catheter Urinal Urinal # Voids 1 2 - Exam GENERAL EXAM: Alert, pleasant, tachypnea, but improved from respiratory distress standpoint 61-year-old white male, history simple questions, on BiPAP support with pressure of 12 and 6 and FiO2 100% comfortable in no apparent distress. HEAD: Normocephalic/atraumatic. EYES: Normal reaction of pupils, equal size. Conjunctiva pink, sclera white. NOSE: Clear with pink turbinates. THROAT: No erythema or exudates. NECK: No masses, no JVD, no thyroid enlargement, no adenopathy. CHEST: No chest wall deformity. Symmetrical expansion. LUNGS: Equal air entry with diffuse rhonchi CVS: Regular rate and rhythm, normal S1 and S2, no gallops, no murmurs, no rubs ABDOMEN: Soft, nontender. No hepatosplenomegaly, normal bowel sounds, no guarding or rigidity. EXTREMITIES: No clubbing, no edema, no cyanosis, 2+ pulses and upper and lower extremities. MUSCULOSKELETAL: Muscle strength and tone normal. SPINE: No scoliosis or deformity SKIN: No rashes CENTRAL NERVOUS SYSTEM: Alert and oriented -3. No focal deficits, tone is normal in all 4 extremities. PSYCHIATRIC: Alert and oriented -3. Appropriate affect. Intact judgment and insight. - Labs CBC & Chem 7: 06/12/21 05:30 06/12/21 05:30 Labs: Abnormal Lab Results - Last 24 Hours (Table) 06/11/21 06/12/21 06/12/21 Range/Units 20:39 05:30 05:30 WBC 12.96 H (4.50-10.00) X 10*3/uL RBC 3.78 L (4.40-5.60) X 10*6/uL Hgb 10.6 L (13.0-17.0) g/dL Hct 34.0 L (39.6-50.0) % MCHC 31.2 L (32.0-37.0) g/dL RDW 15.7 H (11.5-14.5) % Immature Gran # 0.06 H (0.00-0.04) X 10*3/uL Monocytes # 1.84 H (0.20-1.00) X 10*3/uL Basophils # 0.13 H (0.00-0.10) X 10*3/uL Potassium 3.3 L (3.5-5.5) mmol/L BUN 5.3 L (9.0-27.0) mg/dL Creatinine 0.5 L (0.6-1.5) mg/dL BUN/Creatinine Ratio 11.29 L (12.00-20.00) Ratio POC Glucose (mg/dL) 130 H (75-99) mg/dL Calcium 8.5 L (8.7-10.3) mg/dL NT-Pro-B Natriuret Pep (0-125) pg/mL 06/12/21 06/12/21 Range/Units 05:30 07:44 WBC (4.50-10.00) X 10*3/uL RBC (4.40-5.60) X 10*6/uL Hgb (13.0-17.0) g/dL Hct (39.6-50.0) % MCHC (32.0-37.0) g/dL RDW (11.5-14.5) % Immature Gran # (0.00-0.04) X 10*3/uL Monocytes # (0.20-1.00) X 10*3/uL Basophils # (0.00-0.10) X 10*3/uL Potassium (3.5-5.5) mmol/L BUN (9.0-27.0) mg/dL Creatinine (0.6-1.5) mg/dL BUN/Creatinine Ratio (12.00-20.00) Ratio POC Glucose (mg/dL) 127 H (75-99) mg/dL Calcium (8.7-10.3) mg/dL NT-Pro-B Natriuret Pep 49275 H (0-125) pg/mL Microbiology - Last 24 Hours (Table) 06/08/21 16:42 Blood Culture - Preliminary Blood No Growth after 72 hours 06/09/21 07:36 Gram Stain - Final Sputum Sputum Culture - Final Assessment and Plan Plan: Assessment: #1. Acute hypoxic respiratory failure secondary to status epilepticus requiring intubation and mechanical ventilation mostly to protect the airways, successfully weaned and extubated on 06/10/2021. Patient required BiPAP support today on 06/12/2021 possibility of acute exacerbation of systolic CHF and possibility of aspiration pneumonia #2. History of systolic CHF with moderately impaired EF of 40-45%, moderately severe pulmonary hypertension, trace MR and TR #3. Suspect acute aspiration pneumonia, remains on Zosyn #4. Status epilepticus on presentation, no epileptiform discharge or seizure on the EEG, neurology is following #5. Positive drug screen for benzodiazepines and THC #6. History of chronic right foot cellulitis #7. Tobacco dependence syndrome #8. Possible alcohol withdrawal seizures Plan: Continue current antibiotics Patient's dyspnea is improving with diuresis He was given 60 of Lasix this morning IV push, his diuresis 1.7 L in urine output so far Breathing is easier We can give him a trial on high flow nasal cannula Follow-up chest x-ray electrolytes and labs tomorrow Maintain aspiration precautions Continue breathing treatments I have personally seen and examined the patient, performed the documentation and the assessment and plan as written. Number of minutes spent on the visit: [10] Time with Patient: Less than 30
--- NOTE | 2021-06-12 14:01 | P.PN ---
Subjective Progress Note Date: 06/12/21 The patient is seen at bedside and continues to be seizure free. The nurse stated no reported seizures overnight or today. Objective - Vital Signs Vital signs: Vital Signs Temp 97.9 F 06/12/21 01:53 Pulse 84 06/12/21 11:28 Resp 22 06/12/21 07:29 BP 146/80 06/12/21 01:53 Pulse Ox 93 L 06/12/21 01:53 Intake & Output 06/11/21 06/12/21 06/12/21 18:59 06:59 18:59 Intake Total 135.348 4834 Output Total 220 950 Balance 668.531 5063 -950 Intake: IV 925 700 Magnesium Sulfate-D5w Pmx 200 1 gm In Dextrose/Water 1 100ml.bag @ 100 mls/hr IVPB Q1H [facility] Rx#: [id number] Piperacillin-Tazobactam 3 100 100 .375 gm In Sodium Chloride 0.9% 100 ml @ 25 mls/hr IVPB Q8H [facility] Rx#: [id number] Sodium Chloride 0.9% 1, 625 600 000 ml @ 50 mls/hr IV . Q20H [facility] Rx#:[id number] Intake, IV Titration 7.472 Amount Dexmedetomidine/0.9% NaCl 7.472 (Pmx) 400 mcg In Empty Bag 1 bag @ 0.2 MCG/KG/HR 3.435 mls/hr IV .Q24H [facility] Rx#:[id number] Oral 600 Output: Urine 220 950 Other: Voiding Method Indwelling Catheter Urinal Urinal # Voids 1 2 - Exam GENERAL: The patient is lying in bed and not in acute distress. NEUROLOGICAL: Higher mental function: The patient is awake, alert, oriented to self and place. He correctly states the month but states the year is 1921. He is identifying objects correctly (pen, watch, cup). He is following simple commands. No neglect or aphasia. Cranial nerves: The pupils are round, equal and reactive to light. EOM is intact and no nystagmus. No facial weakness. Has mild hoarseness of his voice. Motor: The strength is lifting all extremities above gravity. No spontaneous movement noted. Cerebellum: With finger to nose has end action tremor bilaterally. Sensation: Normal to touch. Reflexes (right/left): 1+ throughout. WORK-UP: UDS: +Benzo and Marijuana. Serum alcohol level <10. Otherwise rest is not detected. Routine EEG on 06/08/2021: Abnormal routine EEG. The background is diffusely suppressed due to medication effect (IV Propofol, Versed and Ativan). Otherwise there is no focal slowing, epileptiform discharges or seizure on the EEG. Recent imaging: CT of the head earlier today is reported as there is no acute intracranial hemorrhage, mass effect or gross space occupying lesion. I personally reviewed the CT of the head and I agree with the report CT cervical spine earlier today was reported as there is no acute fracture or dislocation evident in the cervical spine. - Labs CBC & Chem 7: 06/12/21 05:30 06/12/21 05:30 Labs: Abnormal Lab Results - Last 24 Hours (Table) 06/11/21 06/12/21 06/12/21 Range/Units 20:39 05:30 05:30 WBC 12.96 H (4.50-10.00) X 10*3/uL RBC 3.78 L (4.40-5.60) X 10*6/uL Hgb 10.6 L (13.0-17.0) g/dL Hct 34.0 L (39.6-50.0) % MCHC 31.2 L (32.0-37.0) g/dL RDW 15.7 H (11.5-14.5) % Immature Gran # 0.06 H (0.00-0.04) X 10*3/uL Monocytes # 1.84 H (0.20-1.00) X 10*3/uL Basophils # 0.13 H (0.00-0.10) X 10*3/uL Potassium 3.3 L (3.5-5.5) mmol/L BUN 5.3 L (9.0-27.0) mg/dL Creatinine 0.5 L (0.6-1.5) mg/dL BUN/Creatinine Ratio 11.29 L (12.00-20.00) Ratio POC Glucose (mg/dL) 130 H (75-99) mg/dL Calcium 8.5 L (8.7-10.3) mg/dL NT-Pro-B Natriuret Pep (0-125) pg/mL 04/17/22 04/17/22 Range/Units 05:30 07:44 WBC (4.50-10.00) X 10*3/uL RBC (4.40-5.60) X 10*6/uL Hgb (13.0-17.0) g/dL Hct (39.6-50.0) % MCHC (32.0-37.0) g/dL RDW (11.5-14.5) % Immature Gran # (0.00-0.04) X 10*3/uL Monocytes # (0.20-1.00) X 10*3/uL Basophils # (0.00-0.10) X 10*3/uL Potassium (3.5-5.5) mmol/L BUN (9.0-27.0) mg/dL Creatinine (0.6-1.5) mg/dL BUN/Creatinine Ratio (12.00-20.00) Ratio POC Glucose (mg/dL) 127 H (75-99) mg/dL Calcium (8.7-10.3) mg/dL NT-Pro-B Natriuret Pep 34145 H (0-125) pg/mL Microbiology - Last 24 Hours (Table) 06/08/21 16:42 Blood Culture - Preliminary Blood No Growth after 72 hours Assessment and Plan Assessment: Clinical Status epilepticus---resolved Seems due to alcohol withdrawal (since last drink was 24 hours prior to coming to hospital) History of seizures. Seems due to his chronic ongoing alcohol withdrawal. (patient stated he has never been sober and all his episodes is when he was not drinking alcohol). Alcohol use and last drink was 24 hours prior to presenting to hospital History of alcohol withdrawal Chronic ongoing tobacco use. Plan: Routine EEG on 06/08/2021: Abnormal routine EEG. The background is diffusely howard ppressed due to medication effect (IV Propofol, Versed and Ativan). Otherwise there is no focal slowing, epileptiform discharges or seizure on the EEG. Stopped Keppra on 06/11/2021 which was started during this admission (currently on 500mg 1 tab bid). No need for further neurological work-up since it is felt this is due to alcohol withdrawal. He was counseled on alcohol cessation and to abstain from alcohol and he is sober and continues to have seizure then would recommend further work- up such as: MRI Brain w/ and w/o and prolonged EEG. Q4 hour neuro checks. Seizure precautions seizure pads Continue thiamine 100 mg daily On Ativan 1 mg every 4 hours PRN for seizure Patient is on CIWA protocol and will defer management to primary team. Patient was counseled on tobacco cessation for 3 minutes. Patient was counseled on alcohol cessation. Will defer the rest of medical management to the primary team and ICU team. Recommend patient to follow-up with neurologist as outpatient within 2-3 weeks. The plan was discussed with the patient and his nurse. There is no further neurological work-up. Neurology will sign off. Please reconsult if any further concerns. Chin Rayo M.D. Neuro-hospitalist Time with Patient: Less than 30
[2021-06-12] MEDS: SODIUM CHLORIDE 0.9% 1,000 ML IV SCH (22:14)
[2021-06-13] MEDS: PIPERACILLIN-TAZOBACTAM 3.375 GM in SODIUM CHLORIDE 0.9% 100 ML IVPB SCH ×3 (01:25→18:11)
[2021-06-13] MEDS: PANTOPRAZOLE 40 MG/10 ML VIAL IVP SCH (07:29)
[2021-06-13] MEDS: IPRATROPIUM-ALBUTEROL 3 ML NEB INHALATION SCH ×4 (07:58→18:52)
[2021-06-13 09:54] LABS: African American GFR (CKD) 135.6 (60.0-200.0); Anion Gap 10.4 mmol/L (10.00-18.00); Calcium 8.3 mg/dL (8.7-10.3); Carbon Dioxide 28.6 mmol/L (20.0-27.5)
[2021-06-13] MEDS: NICOTINE 14MG/24HR PATCH TRANSDERM SCH (10:09)
[2021-06-13] MEDS: HEPARIN SODIUM,PORCINE/PF 5,000 UNIT/0.5 ML SYRINGE SQ SCH ×2 (10:09→21:34)
[2021-06-13] MEDS: METOPROLOL TARTRATE 50 MG TAB PO SCH ×2 (10:10→21:34)
[2021-06-13 10:11] LABS: Basophils # (A) 0.08 X 10*3/uL (0.00-0.10); Basophils % (A) 0.6 %; Eosinophils # (A) 0.07 X 10*3/uL (0.04-0.35); Eosinophils % (A) 0.5 %; HCT 32.3 % (39.6-50.0); HGB 10.2 g/dL (13.0-17.0); Immature Grans, Automated 0.5 %; Lymphocytes # (A) 2.23 X 10*3/uL (0.90-5.00); Lymphocytes % (A) 16.8 %; MCH 28.2 pg (27.0-32.0); MCHC 31.6 g/dL (32.0-37.0); MCV 89.2 fL (80.0-97.0); Mean Platelet Volume 10.7 fL (9.5-12.2); Monocytes # (A) 2.05 X 10*3/uL (0.20-1.00); Monocytes % (A) 15.4 %; NRBC Per 100 WBC 0 /100 WBCS (0.0-0.0); Neutrophils # (A) 8.81 X 10*3/uL (1.80-7.70); Neutrophils % (A) 66.2 %; Platelet Count 363 X 10*3/uL (140-440); RBC 3.62 X 10*6/uL (4.40-5.60); RDW 15.5 % (11.5-14.5); WBC 13.31 X 10*3/uL (4.50-10.00)
[2021-06-13] MEDS: cloNIDine HCL 0.1 MG TAB PO SCH ×2 (10:11→21:34)
[2021-06-13] MEDS: FLUCONAZOLE 100 MG TAB PO SCH (10:11)
[2021-06-13] MEDS: lisinopriL 5 MG TAB PO SCH (10:11)
[2021-06-13] MEDS: THIAMINE 100 MG TAB PO SCH (10:11)
[2021-06-13] MEDS: FUROSEMIDE 40 MG TAB PO SCH (10:11)
[2021-06-13] MEDS ORDERED: Potassium Replacement Protocol 1 EACH MISC MISCELLANE PRN (10:11)
--- NOTE | 2021-06-13 13:16 | P.PN ---
Subjective Progress Note Date: 06/13/21 Principal diagnosis: Shortness of breath, hypoxia This is a 61-year-old male patient with a history of hypertension, alcohol abuse and previous seizures, wound to the right foot. He had been admitted back in February 2021 for acute alcohol intoxication and syncopal episodes. He also had a wound to the right foot. He had left AGAINST MEDICAL ADVICE at that time. He presented here to the emergency room yesterday morning by EMS after suffering a fall and seizure. He had stated he has a seizure about every 3 months and had been compliant with his medications. He ended up being discharged from the emergency room as he was quite anxious to leave. CT scan of the brain revealed no intracranial hemorrhage or mass effect. He was brought back to the emergency room shortly after arriving home and had repeat seizure that lasted approximately 2 minutes. He was post ictal upon arrival and alert and oriented times one. He had admitted to drinking 3-4 beers on a daily basis. He did continue to have seizures in the emergency department and was intubated and transferred to the intensive care unit. He is seen today in consultation. Currently on the mechanical ventilator with settings of assist control of 16, tidal volume 400, FiO2 40% and a PEEP of 5. Morning blood gases revealed a PaO2 of 166, pCO2 43 and a pH of 7.35. that was on 50% FiO2. White count 13.4. Hemoglobin 11.6. Sodium 131. Potassium 3.1. Bicarb 17. BUN 3. Creatinine 0.38. Calcium 6.0. Magnesium 1.3. Right foot wound culture pending. Chest x- ray shows pulmonary vascular congestion with small effusions and adjacent atelectasis/consolidation. Suspicious for aspiration pneumonia. EEG revealed slowing due to medication effect. Otherwise no focal slowing, epileptic form discharges or seizure on the EEG. He has been initiated on Dilantin and Keppra. He is currently sedated on propofol at 20 mcg/kg/m. First set at 10 mg per hour. Norepinephrine at 0.11 mcg/kg/m. Normal saline at 100 ML's per hour. Patient was reevaluated today on 06/10/21, patient remains in the ICU, intubated and mechanically ventilated, his ventilator settings were reviewed, patient is on Precedex, patient had no evidence of seizures over the last 24 hours, and he has been on Precedex for the last 24 hours. He is arousable, follows simple instructions, and he seems to be tolerating CPAP quite well for the last hour or so. Labs today showed WBC count of 11.3 hemoglobin of 12.9 electrolytes are normal renal profile is normal chest x-ray showed mild central vascular congestion with bibasilar infiltrates/atelectasis. I basically suspect that the patient had some sort of aspiration pneumonia. Patient was reevaluated today on 06/11/2021, patient remains in the ICU, patient was extubated yesterday uneventfully, he seems to be doing very well. Patient has been off Precedex this morning, he remains on Zosyn for presumptive aspiration pneumonia, he is actually on 3 L nasal cannula, in no distress, no s eizure activity over the last 24 hours, his IV fluids at 100 mL/h and I cut it down to 50 mL per hour. Patient remains on the CIWA protocol. Today I plan to transfer the patient out of the ICU to a regular medical floor, however will continue seizure precautions, and continue the CIWA protocol. 06/12/2021 patient seen in follow-up on medical surgical floor, patient was noted to be quite short of breath this morning, audibly congested, increasingly tachypneic. His chest x-ray today shows progressive patchy perihilar and right lower lobe infiltrate. Subsequently the patient was given a dose of IV Lasix 60 mg, he was placed on BiPAP support with pressures of 12 and 6 on FiO2 of 100%, he has diuresed 1.7 L in the urine output since then, he is breathing much more comfortably, less tachypneic, his mentation is appropriate, he is answering simple questions. Lung sounds reveal diffuse rhonchi, but overall he admits his breathing is much better. He can even be trialed on high flow nasal cannula. Today's lab 7 reviewed, his white blood cell count is 12.9, hemoglobin is 10.6, sodium is 141, potassium is 3.3, and aggressive electrolyte serum within normal limits, BUN of 5.3, creatinine 0.5, his proBNP came back significantly elevated at 14,652. Patient states he usually takes maintenance dose of Lasix at home. He thinks it usually takes 40 mg on a daily basis although this is not on his home medication list, his last echocardiogram from 03/24/2021 showed EF of 40- 45%, moderate concentric LVH, trace to mild aortic regurgitation, mild mitral regurgitation, mild tricuspid regurgitation, and right ventricular systolic pressure of 47.2 mmHg. He also continues on Zosyn for possibility of aspiration related pneumonia. His sputum culture has shown no growth, but his right foot wound culture showing presumptive staph aureus, final culture is pending at this time. Mentation is much more appropriate, patient is calm and cooperative, no tremors no seizure activity noted. On 06/13/2021 patient seen in follow-up on medical surgical floor, He is awake and alert, oriented 3, sitting up in the recliner, he is off BiPAP support, he is breathing much more comfortably today. 3 L of oxygen pulse ox is 96-99%, his been afebrile, hemodynamically has been stable. No new chest x-ray today. He continues on a once daily dose of Lasix, yesterday he received Nexavar dose of IV Lasix for possibility of interstitial edema, fluid overload, acute exacerbation of CHF, possibility of aspiration pneumonia was also being considered. He is in -1.1 L negative fluid balance over the last 24 hours. Sputum culture has no growth, history right foot wound culture is positive for MSSA, blood cultures show no growth. Patient remains on nebulized bronchodilators, he remains on Zosyn for possibility of aspiration. His had no tremors or seizure activity. Complaints of chest discomfort, no hemoptysis. He has had no acute events overnight. Objective - Vital Signs Vital signs: Vital Signs Temp 98.6 F 06/13/21 08:00 Pulse 105 H 06/13/21 11:26 Resp 16 06/13/21 08:00 BP 132/79 06/13/21 08:00 Pulse Ox 99 06/13/21 08:00 Intake & Output 06/12/21 06/13/21 06/13/21 18:59 06:59 18:59 Intake Total 100 Output Total 950 250 Balance -850 -250 Intake: IV 100 Piperacillin-Tazobactam 3 100 .375 gm In Sodium Chloride 0.9% 100 ml @ 25 mls/hr IVPB Q8H [facility] Rx#: [id number] Output: Urine 950 250 Other: Voiding Method Urinal Urinal Urinal - Exam GENERAL EXAM: Alert, pleasant, on 3 L of oxygen pulse ox of 96-99% 61-year-old white male, sitting up in the chair, in no acute distress HEAD: Normocephalic/atraumatic. EYES: Normal reaction of pupils, equal size. Conjunctiva pink, sclera white. NOSE: Clear with pink turbinates. THROAT: No erythema or exudates. NECK: No masses, no JVD, no thyroid enlargement, no adenopathy. CHEST: No chest wall deformity. Symmetrical expansion. LUNGS: Equal air entry with diffuse rhonchi CVS: Regular rate and rhythm, normal S1 and S2, no gallops, no murmurs, no rubs ABDOMEN: Soft, nontender. No hepatosplenomegaly, normal bowel sounds, no guard ing or rigidity. EXTREMITIES: No clubbing, no edema, no cyanosis, 2+ pulses and upper and lower extremities. MUSCULOSKELETAL: Muscle strength and tone normal. SPINE: No scoliosis or deformity SKIN: No rashes CENTRAL NERVOUS SYSTEM: Alert and oriented -3. No focal deficits, tone is normal in all 4 extremities. PSYCHIATRIC: Alert and oriented -3. Appropriate affect. Intact judgment and insight. - Labs CBC & Chem 7: 06/13/21 04:53 06/13/21 04:53 Labs: Abnormal Lab Results - Last 24 Hours (Table) 06/13/21 06/13/21 Range/Units 04:53 04:53 WBC 13.31 H (4.50-10.00) X 10*3/uL RBC 3.62 L (4.40-5.60) X 10*6/uL Hgb 10.2 L (13.0-17.0) g/dL Hct 32.3 L (39.6-50.0) % MCHC 31.6 L (32.0-37.0) g/dL RDW 15.5 H (11.5-14.5) % Immature Gran # 0.07 H (0.00-0.04) X 10*3/uL Neutrophils # 8.81 H (1.80-7.70) X 10*3/uL Monocytes # 2.05 H (0.20-1.00) X 10*3/uL Potassium 3.0 L (3.5-5.5) mmol/L Carbon Dioxide 28.6 H (20.0-27.5) mmol/L BUN 7.0 L (9.0-27.0) mg/dL Creatinine 0.5 L (0.6-1.5) mg/dL Calcium 8.3 L (8.7-10.3) mg/dL Microbiology - Last 24 Hours (Table) 06/08/21 21:50 Gram Stain - Final Foot - Right Wound Culture - Final Staphylococcus aureus 06/08/21 16:42 Blood Culture - Preliminary Blood No Growth after 96 hours Assessment and Plan Plan: Assessment: #1. Acute hypoxic respiratory failure secondary to status epilepticus requiring intubation and mechanical ventilation mostly to protect the airways, successfully weaned and extubated on 06/10/2021. Patient required BiPAP support today on 06/12/2021 possibility of acute exacerbation of systolic CHF and possibility of aspiration pneumonia #2. History of systolic CHF with moderately impaired EF of 40-45%, moderately severe pulmonary hypertension, trace MR and TR #3. Suspect acute aspiration pneumonia, remains on Zosyn #4. Status epilepticus on presentation, no epileptiform discharge or seizure on the EEG, neurology is following #5. Positive drug screen for benzodiazepines and THC #6. History of chronic right foot cellulitis #7. Tobacco dependence syndrome #8. Possible alcohol withdrawal seizures Plan: Continue oral dose Lasix Continue breathing treatments and antibiotics Follow-up chest x-ray tomorrow Overall seems to be breathing much easier Off BiPAP support Currently down to 3 L of oxygen Mentation is appropriate, no tremors or seizures Follow blood work including CBC and CMP I have personally seen and examined the patient, performed the documentation and the assessment and plan as written. Number of minutes spent on the visit: [10] Time with Patient: Less than 30
[2021-06-13] MEDS: POTASSIUM CHLORIDE ER 20 MEQ TAB.ER PO SCH ×2 (13:34→15:08)
--- NOTE | 2021-06-14 03:00 | P.PN ---
Subjective Progress Note Date: 06/13/21 This is a 61-year-old male who was recently admitted with seizures and went into status epilepticus requiring mechanical ventilation with intubation and sedation and is closely monitored in the ICU with multiple medical consultations following. Neurology following as well as pulmonary qm nurse and patient remains on mechanical vent with an FiO2 of 40% with a PEEP of 5. Family members at the bedside including brother and son reports the patient drinking daily at least 3-4 large 22 ounce cans of beer if not more daily and reports the patient never discontinuing drinking. Per nursing staff patient is being evaluated and assessed closely off sedation to monitor mental status with neurology following. Patient noted to have generalized swelling throughout. Patient is afebrile and continues on prophylactic antibiotic along with IV hydration and will continue. Maintain CIWA protocol and appreciate input and recommendations from neurology. Per family patient has poor social support and lives with another roommate who drinks daily heavily as well and will consult case management and social work along with PT/OT therapy once patient is extubated. 06/10/2021 Patient is seen in follow-up this morning was doing well on weaning and recently extubated approximately 30 minutes ago and currently maintained on 4 L via nasal cannula. Patient is lethargic although arousable and is responding to commands and questions appropriately. Neurology and pulmonary qm nurse also following closely and patient is maintained on antiepileptics along with IV Zosyn. Strong suspicion for aspiration pneumonia and will continue IV Zosyn. Continue seizure precautions as well. Patient maintained on CIWA protocol and will continue. Continue with nothing by mouth diet for now until more awake and able to perform a bedside swallow. Wean FiO2 as tolerated. Patient is currently afebrile and denies any chest pain or shortness of breath. Will need case management and social work to follow for multiple social issues. Patient is also continued on Precedex low-dose and nursing staff working on weaning. 06/13/2021 Patient is seen in follow-up today on a MedSurg unit continues on 3 L of oxygen via nasal cannula and also continued on IV antibiotics . Patient sputum cultures are staph aureus and will continue IV zosyn. Pulmonary following and patient also to continue with breathing inhalational treatments. Case management and social work following and working on ECF for continued weakness. PT/OT recommending rehab on discharge. Patient with some possible fluid overload and started on oral lasix. Patient denies chest pain or shortness of breath. Patient is afebrile. Review of systems: Constitutional: No reports of fatigue, fever, or chills Cardiovascular: No reports of chest pain or palpitations Respiratory: No reports of shortness of breath or cough GI: No reports of nausea, vomiting, or diarrhea : No reports of dysuria or retention Neurovascular: reports of weakness All medications have been reviewed Active Medications Albuterol/Ipratropium (Ipratropium-Albuterol 3 Ml Neb) 3 ml INHALATION RT-Q2H PRN PRN Reason: Shortness Of Breath Or Wheezing Albuterol/Ipratropium (Ipratropium-Albuterol 3 Ml Neb) 3 ml INHALATION RT-QID [facility] Last Admin: 06/13/21 15:31 Dose: 3 ml Documented by: Clonidine (Clonidine Hcl 0.1 Mg Tab) 0.1 mg PO BID [facility] Last Admin: 06/13/21 10:11 Dose: 0.1 mg Documented by: Fluconazole (Fluconazole 100 Mg Tab) 100 mg PO DAILY [facility]; Protocol Last Admin: 06/13/21 10:11 Dose: 100 mg Documented by: Furosemide (Furosemide 40 Mg Tab) 40 mg PO DAILY [facility] Last Admin: 06/13/21 10:11 Dose: 40 mg Documented by: Heparin Sodium (Porcine) (Heparin Sodium,Porcine/Pf 5,000 Unit/0.5 Ml Syringe) 5,000 unit SQ Q12HR [facility] Last Admin: 06/13/21 10:09 Dose: 5,000 unit Documented by: Piperacillin Sod/Tazobactam (Sod 3.375 gm/ Sodium Chloride) 100 mls @ 25 mls/hr IVPB Q8H [facility]; Protocol Last Admin: 06/13/21 10:10 Dose: 25 mls/hr Documented by: Lisinopril (Lisinopril 5 Mg Tab) 5 mg PO DAILY [facility] Last Admin: 06/13/21 10:11 Dose: 5 mg Documented by: Lorazepam (Lorazepam 2 Mg/Ml Inj) 1 mg IV Q2HR PRN PRN Reason: CIWA 8 or 9 Last Admin: 06/10/21 21:36 Dose: 1 mg Documented by: Lorazepam (Lorazepam 2 Mg/Ml Inj) 1 mg IV Q1HR PRN PRN Reason: CIWA 10 to 15 Lorazepam (Lorazepam 2 Mg/Ml Inj) 1 mg IV Q4HR PRN PRN Reason: Seizures Last Admin: 06/12/21 07:57 Dose: 1 mg Documented by: Metoprolol Tartrate (Metoprolol Tartrate 50 Mg Tab) 100 mg PO BID [facility] Last Admin: 06/13/21 10:10 Dose: 100 mg Documented by: Miscellaneous Information (Magnesium Replacement Protocol 1 Each Misc) 1 each MISCELLANE DAILY PRN; Protocol PRN Reason: Per Protocol Miscellaneous Information (Potassium Replacement Protocol 1 Each Misc) 1 each MISCELLANE DAILY PRN; Protocol PRN Reason: Per Protocol Miscellaneous Information (Potassium Replacement Protocol 1 Each Misc) 1 each MISCELLANE DAILY PRN; Protocol PRN Reason: Per Protocol Naloxone HCl (Naloxone 0.4 Mg/Ml 1 Ml Vial) 0.2 mg IV Q2M PRN PRN Reason: Opioid Reversal Nicotine (Nicotine 14mg/24hr Patch) 1 patch TRANSDERM DAILY [facility] Last Admin: 06/13/21 10:09 Dose: 1 patch Documented by: Nystatin (Nystatin 100,000unit/Gm Cream 30 Gm Tube) 1 applic TOPICAL BID PRN; Protocol PRN Reason: Skin Irritation Last Admin: 06/09/21 00:10 Dose: 1 applic Documented by: Pantoprazole Sodium (Pantoprazole 40 Mg/10 Ml Vial) 40 mg IVP DAILY [facility] Last Admin: 06/13/21 07:29 Dose: 40 mg Documented by: Thiamine HCl (Thiamine 100 Mg Tab) 100 mg PO DAILY [facility] Last Admin: 06/13/21 10:11 Dose: 100 mg Documented by: PHYSICAL EXAMINATION: GENERAL: The patient is awake and alert and oriented 3. continued on 3L via GA HEENT: Pupils are round and equally reacting to light. EOMI. no scleral icterus. No conjunctival pallor. Normocephalic, atraumatic. No pharyngeal erythema. No thyromegaly. CARDIOVASCULAR: S1 and S2 muffled PULMONARY: diminished breath sounds bilaterally with some expiratory wheezing and some scattered rhonchi and crackles noted. ABDOMEN: soft. Nontender on exam. non-distended, normoactive bowel sounds. No palpable organomegaly. MUSCULOSKELETAL: No joint swelling or deformity. EXTREMITIES: No cyanosis, clubbing, or pedal edema. NEUROLOGICAL: Gross neurological examination did not reveal any focal deficits. diffuse weakness SKIN: No rashes. Assessment: Acute seizure disorder as well as status epilepticus with hypoxic respiratory failure, on mechanical ventilation and extubated on 06/10/2021 Acute hypoxic respiratory failure secondary to status epilepticus Acute Aspiration pneumonia Hyponatremia Hypokalemia History of EtOH History of chronic obstructive pulmonary disease Right leg cellulitis GI prophylaxis DVT prophylaxis Full code Plan: Recommend to continue with current medications and management per pulmonary and neurology. Patient maintained on 3 L. Wean FI02 as tolerated. Recommend to continue with CIWA protocol and monitor closely. Recommend repeat labs and replace electrolytes per protocol. Potassium is 3.0 today. Continue with current diet. Family reports poor social support and hanging around other people that use illicit drugs and drink heavy alcohol and will need to discuss further with social work and case management about possible alcohol rehab. Patient was seen and evaluated by PT/OT and recommending rehab. Case management following and awaiting accepting facility. Encourage increase activity as tolerated. Due to multiple complex medical issues, prognosis is guarded. The impression and plan of care has been dictated by Milvia Hemphill, nurse practitioner as directed. MD Micheline I have performed a history and examination and MDM of this patient, discussed the same with the dictator, and agree with the dictator's assessment and plan as written ,documented as a scribe. Based on total visit time, I have performed more than 50% of the visit. Any additional findings or plans will be noted. Objective - Vital Signs Vital signs: Vital Signs Temp 98.6 F 06/13/21 08:00 Pulse 98 06/13/21 08:07 Resp 16 06/13/21 08:00 BP 132/79 06/13/21 08:00 Pulse Ox 99 06/13/21 08:00 Intake & Output 06/12/21 06/13/21 06/13/21 18:59 06:59 18:59 Intake Total 100 Output Total 950 250 Balance -850 -250 Intake: IV 100 Piperacillin-Tazobactam 3 100 .375 gm In Sodium Chloride 0.9% 100 ml @ 25 mls/hr IVPB Q8H [facility] Rx#: [id number] Output: Urine 950 250 Other: Voiding Method Urinal Urinal - Labs CBC & Chem 7: 06/13/21 04:53 06/13/21 04:53 Labs: Abnormal Lab Results - Last 24 Hours (Table) 06/13/21 06/13/21 Range/Units 04:53 04:53 WBC 13.31 H (4.50-10.00) X 10*3/uL RBC 3.62 L (4.40-5.60) X 10*6/uL Hgb 10.2 L (13.0-17.0) g/dL Hct 32.3 L (39.6-50.0) % MCHC 31.6 L (32.0-37.0) g/dL RDW 15.5 H (11.5-14.5) % Immature Gran # 0.07 H (0.00-0.04) X 10*3/uL Neutrophils # 8.81 H (1.80-7.70) X 10*3/uL Monocytes # 2.05 H (0.20-1.00) X 10*3/uL Potassium 3.0 L (3.5-5.5) mmol/L Carbon Dioxide 28.6 H (20.0-27.5) mmol/L BUN 7.0 L (9.0-27.0) mg/dL Creatinine 0.5 L (0.6-1.5) mg/dL Calcium 8.3 L (8.7-10.3) mg/dL Microbiology - Last 24 Hours (Table) 06/08/21 21:50 Gram Stain - Final Foot - Right Wound Culture - Final Staphylococcus aureus 06/08/21 16:42 Blood Culture - Preliminary Blood No Growth after 96 hours
[2021-06-14] MEDS: PIPERACILLIN-TAZOBACTAM 3.375 GM in SODIUM CHLORIDE 0.9% 100 ML IVPB SCH ×2 (03:20→09:09)
[2021-06-14] MEDS: METOPROLOL TARTRATE 50 MG TAB PO SCH ×2 (08:30→20:43)
[2021-06-14] MEDS: NICOTINE 14MG/24HR PATCH TRANSDERM SCH (08:31)
[2021-06-14] MEDS: HEPARIN SODIUM,PORCINE/PF 5,000 UNIT/0.5 ML SYRINGE SQ SCH ×2 (08:31→20:43)
[2021-06-14] MEDS: THIAMINE 100 MG TAB PO SCH (08:31)
[2021-06-14] MEDS: FLUCONAZOLE 100 MG TAB PO SCH (08:31)
[2021-06-14] MEDS: cloNIDine HCL 0.1 MG TAB PO SCH ×2 (08:31→20:43)
[2021-06-14] MEDS: PANTOPRAZOLE 40 MG/10 ML VIAL IVP SCH (08:31)
[2021-06-14] MEDS: lisinopriL 5 MG TAB PO SCH (08:31)
[2021-06-14] MEDS: FUROSEMIDE 40 MG TAB PO SCH (08:31)
--- NOTE | 2021-06-14 09:02 | XR ---
EXAMINATION TYPE: XR chest 1V portable DATE OF EXAM: 06/14/2021 COMPARISON: 06/12/2021 INDICATION: CHF TECHNIQUE: Single frontal view of the chest is obtained. FINDINGS: The heart size is normal. The pulmonary vasculature is normal. Patchy infiltrates in the right midlung and into the right lower lobe. There is blunting of the right costophrenic angle compatible with small effusion. IMPRESSION: 1. Improving right mid and lower lung field infiltrate. 2. Small right pleural effusion.
[2021-06-14] MEDS: IPRATROPIUM-ALBUTEROL 3 ML NEB INHALATION SCH ×4 (09:05→20:11)
[2021-06-14 09:14] LABS: Basophils # (A) 0.04 X 10*3/uL (0.00-0.10); Basophils % (A) 0.4 %; HCT 32.4 % (39.6-50.0); HGB 10.2 g/dL (13.0-17.0); Immature Grans, Automated 0.4 %; Lymphocytes # (A) 2.16 X 10*3/uL (0.90-5.00); Lymphocytes % (A) 21.8 %; MCH 28.1 pg (27.0-32.0); MCHC 31.5 g/dL (32.0-37.0); MCV 89.3 fL (80.0-97.0); Mean Platelet Volume 10.6 fL (9.5-12.2); Monocytes # (A) 1.86 X 10*3/uL (0.20-1.00); Monocytes % (A) 18.8 %; NRBC Per 100 WBC 0 /100 WBCS (0.0-0.0); Neutrophils % (A) 57.6 %; Platelet Count 345 X 10*3/uL (140-440); RBC 3.63 X 10*6/uL (4.40-5.60); RDW 15.3 % (11.5-14.5)
[2021-06-14 09:22] LABS: African American GFR (CKD) 135.6 (60.0-200.0); Anion Gap 9.8 mmol/L (10.00-18.00); Calcium 8.3 mg/dL (8.7-10.3); Carbon Dioxide 31.2 mmol/L (20.0-27.5); Potassium 3.2 mmol/L (3.5-5.5)
[2021-06-14] MEDS ORDERED: POTASSIUM CHLORIDE ER 20 MEQ TAB.ER PO STA (09:23)
--- NOTE | 2021-06-14 10:41 | P.PN ---
Subjective Progress Note Date: 06/14/21 Principal diagnosis: Shortness of breath, hypoxia This is a 61-year-old male patient with a history of hypertension, alcohol abuse and previous seizures, wound to the right foot. He had been admitted back in February 2021 for acute alcohol intoxication and syncopal episodes. He also had a wound to the right foot. He had left AGAINST MEDICAL ADVICE at that time. He presented here to the emergency room yesterday morning by EMS after suffering a fall and seizure. He had stated he has a seizure about every 3 months and had been compliant with his medications. He ended up being discharged from the emergency room as he was quite anxious to leave. CT scan of the brain revealed no intracranial hemorrhage or mass effect. He was brought back to the emergency room shortly after arriving home and had repeat seizure that lasted approximately 2 minutes. He was post ictal upon arrival and alert and oriented times one. He had admitted to drinking 3-4 beers on a daily basis. He did continue to have seizures in the emergency department and was intubated and transferred to the intensive care unit. He is seen today in consultation. Currently on the mechanical ventilator with settings of assist control of 16, tidal volume 400, FiO2 40% and a PEEP of 5. Morning blood gases revealed a PaO2 of 166, pCO2 43 and a pH of 7.35. that was on 50% FiO2. White count 13.4. Hemoglobin 11.6. Sodium 131. Potassium 3.1. Bicarb 17. BUN 3. Creatinine 0.38. Calcium 6.0. Magnesium 1.3. Right foot wound culture pending. Chest x- ray shows pulmonary vascular congestion with small effusions and adjacent atelectasis/consolidation. Suspicious for aspiration pneumonia. EEG revealed slowing due to medication effect. Otherwise no focal slowing, epileptic form discharges or seizure on the EEG. He has been initiated on Dilantin and Keppra. He is currently sedated on propofol at 20 mcg/kg/m. First set at 10 mg per hour. Norepinephrine at 0.11 mcg/kg/m. Normal saline at 100 ML's per hour. Patient was reevaluated today on 06/10/21, patient remains in the ICU, intubated and mechanically ventilated, his ventilator settings were reviewed, patient is on Precedex, patient had no evidence of seizures over the last 24 hours, and he has been on Precedex for the last 24 hours. He is arousable, follows simple instructions, and he seems to be tolerating CPAP quite well for the last hour or so. Labs today showed WBC count of 11.3 hemoglobin of 12.9 electrolytes are normal renal profile is normal chest x-ray showed mild central vascular congestion with bibasilar infiltrates/atelectasis. I basically suspect that the patient had some sort of aspiration pneumonia. Patient was reevaluated today on 06/11/2021, patient remains in the ICU, patient was extubated yesterday uneventfully, he seems to be doing very well. Patient has been off Precedex this morning, he remains on Zosyn for presumptive aspiration pneumonia, he is actually on 3 L nasal cannula, in no distress, no s eizure activity over the last 24 hours, his IV fluids at 100 mL/h and I cut it down to 50 mL per hour. Patient remains on the CIWA protocol. Today I plan to transfer the patient out of the ICU to a regular medical floor, however will continue seizure precautions, and continue the CIWA protocol. 06/12/2021 patient seen in follow-up on medical surgical floor, patient was noted to be quite short of breath this morning, audibly congested, increasingly tachypneic. His chest x-ray today shows progressive patchy perihilar and right lower lobe infiltrate. Subsequently the patient was given a dose of IV Lasix 60 mg, he was placed on BiPAP support with pressures of 12 and 6 on FiO2 of 100%, he has diuresed 1.7 L in the urine output since then, he is breathing much more comfortably, less tachypneic, his mentation is appropriate, he is answering simple questions. Lung sounds reveal diffuse rhonchi, but overall he admits his breathing is much better. He can even be trialed on high flow nasal cannula. Today's lab 7 reviewed, his white blood cell count is 12.9, hemoglobin is 10.6, sodium is 141, potassium is 3.3, and aggressive electrolyte serum within normal limits, BUN of 5.3, creatinine 0.5, his proBNP came back significantly elevated at 14,652. Patient states he usually takes maintenance dose of Lasix at home. He thinks it usually takes 40 mg on a daily basis although this is not on his home medication list, his last echocardiogram from 03/24/2021 showed EF of 40- 45%, moderate concentric LVH, trace to mild aortic regurgitation, mild mitral regurgitation, mild tricuspid regurgitation, and right ventricular systolic pressure of 47.2 mmHg. He also continues on Zosyn for possibility of aspiration related pneumonia. His sputum culture has shown no growth, but his right foot wound culture showing presumptive staph aureus, final culture is pending at this time. Mentation is much more appropriate, patient is calm and cooperative, no tremors no seizure activity noted. On 06/13/2021 patient seen in follow-up on medical surgical floor, He is awake and alert, oriented 3, sitting up in the recliner, he is off BiPAP support, he is breathing much more comfortably today. 3 L of oxygen pulse ox is 96-99%, his been afebrile, hemodynamically has been stable. No new chest x-ray today. He continues on a once daily dose of Lasix, yesterday he received Nexavar dose of IV Lasix for possibility of interstitial edema, fluid overload, acute exacerbation of CHF, possibility of aspiration pneumonia was also being considered. He is in -1.1 L negative fluid balance over the last 24 hours. Sputum culture has no growth, history right foot wound culture is positive for MSSA, blood cultures show no growth. Patient remains on nebulized bronchodilators, he remains on Zosyn for possibility of aspiration. His had no tremors or seizure activity. Complaints of chest discomfort, no hemoptysis. He has had no acute events overnight. On 06/14/2021 patient seen in follow-up on medical surgical floor. He states he is feeling better, he is on 3 L of oxygen pulse ox is 99%. Breathing comfortably. No complaints of chest discomfort, vital signs have been stable, no fever or chills. Follow-up chest x-ray has been reviewed showing improving right mid and lower lung field infiltrate, a small right-sided pleural effusion. he continues on oral dose of Lasix, he is in -1.3 L net fluid balance over the last 24 hours. Continues on antibiotics for possibility of aspiration, he is on Diflucan and Zosyn. Today's labs have been reviewed, white blood cell count is improving and is down to 9.9, hemoglobin is 10.2, sodium is 138, potassium is 3.2, chloride is 97, BUN is 6, creatinine is 0.5. Objective - Vital Signs Vital signs: Vital Signs Temp 98.6 F 06/14/21 06:47 Pulse 105 H 06/14/21 09:13 Resp 16 06/14/21 06:47 BP 125/82 06/14/21 06:47 Pulse Ox 99 06/14/21 09:07 Intake & Output 06/13/21 06/14/21 06/14/21 18:59 06:59 18:59 Output Total 800 500 Balance -800 -500 Output: Urine 800 500 Other: Voiding Method Urinal Urinal External Catheter - Exam GENERAL EXAM: Alert, pleasant, on 3 L of oxygen pulse ox of 96-99% 61-year-old white male, sitting up in the chair, in no acute distress HEAD: Normocephalic/atraumatic. EYES: Normal reaction of pupils, equal size. Conjunctiva pink, sclera white. NOSE: Clear with pink turbinates. THROAT: No erythema or exudates. NECK: No masses, no JVD, no thyroid enlargement, no adenopathy. CHEST: No chest wall deformity. Symmetrical expansion. LUNGS: Equal air entry with diffuse rhonchi CVS: Regular rate and rhythm, normal S1 and S2, no gallops, no murmurs, no rubs ABDOMEN: Soft, nontender. No hepatosplenomegaly, normal bowel sounds, no guarding or rigidity. EXTREMITIES: No clubbing, no edema, no cyanosis, 2+ pulses and upper and lower extremities. MUSCULOSKELETAL: Muscle strength and tone normal. SPINE: No scoliosis or deformity SKIN: No rashes CENTRAL NERVOUS SYSTEM: Alert and oriented -3. No focal deficits, tone is normal in all 4 extremities. PSYCHIATRIC: Alert and oriented -3. Appropriate affect. Intact judgment and insight. - Labs CBC & Chem 7: 06/14/21 05:37 06/14/21 05:37 Labs: Abnormal Lab Results - Last 24 Hours (Table) 06/14/21 06/14/21 Range/Units 05:37 05:37 RBC 3.63 L (4.40-5.60) X 10*6/uL Hgb 10.2 L (13.0-17.0) g/dL Hct 32.4 L (39.6-50.0) % MCHC 31.5 L (32.0-37.0) g/dL RDW 15.3 H (11.5-14.5) % Monocytes # 1.86 H (0.20-1.00) X 10*3/uL Potassium 3.2 L (3.5-5.5) mmol/L Carbon Dioxide 31.2 H (20.0-27.5) mmol/L Anion Gap 9.80 L (10.00-18.00) mmol/L BUN 6.0 L (9.0-27.0) mg/dL Creatinine 0.5 L (0.6-1.5) mg/dL Calcium 8.3 L (8.7-10.3) mg/dL Microbiology - Last 24 Hours (Table) 06/08/21 16:42 Blood Culture - Preliminary Blood No Growth after 120 hours Assessment and Plan Plan: Assessment: #1. Acute hypoxic respiratory failure secondary to status epilepticus requiring intubation and mechanical ventilation mostly to protect the airways, successfully weaned and extubated on 06/10/2021. Patient required BiPAP support today on 06/12/2021 possibility of acute exacerbation of systolic CHF and possibility of aspiration pneumonia #2. History of systolic CHF with moderately impaired EF of 40-45%, moderately severe pulmonary hypertension, trace MR and TR #3. Suspect acute aspiration pneumonia, remains on Zosyn #4. Status epilepticus on presentation, no epileptiform discharge or seizure on the EEG, neurology is following #5. Positive drug screen for benzodiazepines and THC #6. History of chronic right foot cellulitis #7. Tobacco dependence syndrome #8. Possible alcohol withdrawal seizures #9. Suspect underlying COPD from smoking Plan: Clinically improving Breathing comfortably Weaning FiO2, obtain home oxygen assessment We will stop the Zosyn Continue oral Lasix 40 mg daily Patient can be considered for discharge home from pulmonary perspective Outpatient follow-up Dr. Alfred in one week May benefit from nebulized bronchodilators with DuoNeb 4 times daily and as needed for possible underlying history of COPD from history of smoking I have personally seen and examined the patient, performed the documentation and the assessment and plan as written. Number of minutes spent on the visit: [10] Time with Patient: Less than 30
--- NOTE | 2021-06-14 22:49 | P.PN ---
Subjective Progress Note Date: 06/14/21 This is a 61-year-old male who was recently admitted with seizures and went into status epilepticus requiring mechanical ventilation with intubation and sedation and is closely monitored in the ICU with multiple medical consultations following. 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 Family members at the bedside including brother and son reports the patient drinking daily at least 3-4 large 22 ounce cans of beer if not more daily and reports the patient never discontinuing drinking. Per nursing staff patient is being evaluated and assessed closely off sedation to monitor mental status with neurology following. Patient noted to have generalized swelling throughout. Patient is afebrile and continues on prophylactic antibiotic along with IV hydration and will continue. Maintain CIWA protocol and appreciate input and recommendations from neurology. Per family patient has poor social support and lives with another roommate who drinks daily heavily as well and will consult case management and social work along with PT/OT therapy once patient is extubated. 06/10/2021 Patient is seen in follow-up this morning was doing well on weaning and recently extubated approximately 30 minutes ago and currently maintained on 4 L via nasal cannula. Patient is lethargic although arousable and is responding to commands and questions appropriately. Neurology and pulmonary asphalt roller operator also following closely and patient is maintained on antiepileptics along with IV Zosyn. Strong suspicion for aspiration pneumonia and will continue IV Zosyn. Continue seizure precautions as well. Patient maintained on CIWA protocol and will continue. Continue with nothing by mouth diet for now until more awake and able to perform a bedside swallow. Wean FiO2 as tolerated. Patient is currently afebrile and denies any chest pain or shortness of breath. Will need case management and social work to follow for multiple social issues. Patient is also continued on Precedex low-dose and nursing staff working on weaning. 06/13/2021 Patient is seen in follow-up today on a MedSurg unit continues on 3 L of oxygen via nasal cannula and also continued on IV antibiotics . Patient sputum cultures are staph aureus and will continue IV zosyn. Pulmonary following and patient also to continue with breathing inhalational treatments. Case management and social work following and working on ECF for continued weakness. PT/OT recommending rehab on discharge. Patient with some possible fluid overload and started on oral lasix. Patient denies chest pain or shortness of breath. Patient is afebrile. 06/14/2021 Patient is seen today and continues to be weak and margaret has accepted and submitted auth to insurance. PT/OT following and working with patient daily. Patient also being followed by pulmonary and stable for discharge to ECF. Patient to continue with diflucan on discharge for 5 days to complete the course. Encouraged oral intake and increased activity as tolerated. Continue to wean FI02 as tolerated and now maintained on 2L via [place]. Continue oral lasix 40mg daily. Patient denies chest pain or shortness of breath. Patient is afebrile. Tolerating diet. potassium 3.0 today and will replace per protocol and repeat am lab. Review of systems: Constitutional: No reports of fatigue, fever, or chills Cardiovascular: No reports of chest pain or palpitations Respiratory: No reports of shortness of breath or cough GI: No reports of nausea, vomiting, or diarrhea : No reports of dysuria or retention Neurovascular: reports of weakness All medications have been reviewed Active Medications Albuterol/Ipratropium (Ipratropium-Albuterol 3 Ml Neb) 3 ml INHALATION RT-Q2H PRN PRN Reason: Shortness Of Breath Or Wheezing Albuterol/Ipratropium (Ipratropium-Albuterol 3 Ml Neb) 3 ml INHALATION RT-QID [facility] Last Admin: 06/14/21 20:11 Dose: 3 ml Documented by: Clonidine (Clonidine Hcl 0.1 Mg Tab) 0.1 mg PO BID [facility] Last Admin: 06/14/21 20:43 Dose: 0.1 mg Documented by: Fluconazole (Fluconazole 100 Mg Tab) 100 mg PO DAILY [facility]; Protocol Last Admin: 06/14/21 08:31 Dose: 100 mg Documented by: Furosemide (Furosemide 40 Mg Tab) 40 mg PO DAILY [facility] Last Admin: 06/14/21 08:31 Dose: 40 mg Documented by: Heparin Sodium (Porcine) (Heparin Sodium,Porcine/Pf 5,000 Unit/0.5 Ml Syringe) 5,000 unit SQ Q12HR [facility] Last Admin: 06/14/21 20:43 Dose: 5,000 unit Documented by: Lisinopril (Lisinopril 5 Mg Tab) 5 mg PO DAILY [facility] Last Admin: 06/14/21 08:31 Dose: 5 mg Documented by: Lorazepam (Lorazepam 2 Mg/Ml Inj) 1 mg IV Q2HR PRN PRN Reason: CIWA 8 or 9 Last Admin: 06/10/21 21:36 Dose: 1 mg Documented by: Lorazepam (Lorazepam 2 Mg/Ml Inj) 1 mg IV Q1HR PRN PRN Reason: CIWA 10 to 15 Lorazepam (Lorazepam 2 Mg/Ml Inj) 1 mg IV Q4HR PRN PRN Reason: Seizures Last Admin: 06/12/21 07:57 Dose: 1 mg Documented by: Metoprolol Tartrate (Metoprolol Tartrate 50 Mg Tab) 100 mg PO BID [facility] Last Admin: 06/14/21 20:43 Dose: 100 mg Documented by: Miscellaneous Information (Magnesium Replacement Protocol 1 Each Misc) 1 each MISCELLANE DAILY PRN; Protocol PRN Reason: Per Protocol Miscellaneous Information (Potassium Replacement Protocol 1 Each Misc) 1 each M ISCELLANE DAILY PRN; Protocol PRN Reason: Per Protocol Miscellaneous Information (Potassium Replacement Protocol 1 Each Misc) 1 each MISCELLANE DAILY PRN; Protocol PRN Reason: Per Protocol Naloxone HCl (Naloxone 0.4 Mg/Ml 1 Ml Vial) 0.2 mg IV Q2M PRN PRN Reason: Opioid Reversal Nicotine (Nicotine 14mg/24hr Patch) 1 patch TRANSDERM DAILY [facility] Last Admin: 06/14/21 08:31 Dose: 1 patch Documented by: Nystatin (Nystatin 100,000unit/Gm Cream 30 Gm Tube) 1 applic TOPICAL BID PRN; Protocol PRN Reason: Skin Irritation Last Admin: 06/09/21 00:10 Dose: 1 applic Documented by: Pantoprazole Sodium (Pantoprazole 40 Mg/10 Ml Vial) 40 mg IVP DAILY [facility] Last Admin: 06/14/21 08:31 Dose: 40 mg Documented by: Thiamine HCl (Thiamine 100 Mg Tab) 100 mg PO DAILY [facility] Last Admin: 06/14/21 08:31 Dose: 100 mg Documented by: PHYSICAL EXAMINATION: GENERAL: The patient is awake and alert and oriented 3. continued on 3L via [place] HEENT: Pupils are round and equally reacting to light. EOMI. no scleral icterus. No conjunctival pallor. Normocephalic, atraumatic. No pharyngeal erythema. No thyromegaly. CARDIOVASCULAR: S1 and S2 muffled PULMONARY: diminished breath sounds bilaterally with some some scattered rhonchi noted. ABDOMEN: soft. Nontender on exam. non-distended, normoactive bowel sounds. No palpable organomegaly. MUSCULOSKELETAL: No joint swelling or deformity. EXTREMITIES: No cyanosis, clubbing, or pedal edema. NEUROLOGICAL: Gross neurological examination did not reveal any focal deficits. diffuse weakness SKIN: No rashes. Assessment: Acute seizure disorder as well as status epilepticus with hypoxic respiratory failure, on mechanical ventilation and extubated on 06/10/2021 Acute hypoxic respiratory failure secondary to status epilepticus Acute Aspiration pneumonia Hyponatremia Hypokalemia History of EtOH History of chronic obstructive pulmonary disease Right leg cellulitis GI prophylaxis DVT prophylaxis Full code Plan: Recommend to continue with current medications and management per pulmonary and neurology. Patient maintained on 2 L. Wean FI02 as tolerated. Recommend to continue with CIWA protocol and monitor closely. Recommend repeat labs and replace electrolytes per protocol. Potassium is 3.0 today. Continue with current diet. Family reports poor social support and hanging around other people that use illicit drugs and drink heavy alcohol and will be [facility] for continued weakness. Patient was seen and evaluated by PT/OT and recommending rehab. Case management following and awaiting insurance authorization to [facility]. Encourage increase activity as tolerated. Due to multiple complex medical issues, prognosis is guarded. Possible discharge in 24 hours. The impression and plan of care has been dictated by Milvia Hemphill, nurse practitioner as directed. MD Micheline I have performed a history and examination and MDM of this patient, discussed the same with the dictator, and agree with the dictator's assessment and plan as written ,documented as a scribe. Based on total visit time, I have performed more than 50% of the visit. Any additional findings or plans will be noted. Objective - Vital Signs Vital signs: Vital Signs Temp 98.6 F 06/14/21 06:47 Pulse 100 06/14/21 12:38 Resp 16 06/14/21 06:47 BP 125/82 06/14/21 06:47 Pulse Ox 99 06/14/21 09:07 Intake & Output 06/13/21 06/14/21 06/14/21 18:59 06:59 18:59 Output Total 800 500 Balance -800 -500 Output: Urine 800 500 Other: Voiding Method Urinal Urinal External Catheter - Labs CBC & Chem 7: 06/14/21 05:37 06/14/21 05:37 Labs: Abnormal Lab Results - Last 24 Hours (Table) 06/14/21 06/14/21 Range/Units 05:37 05:37 RBC 3.63 L (4.40-5.60) X 10*6/uL Hgb 10.2 L (13.0-17.0) g/dL Hct 32.4 L (39.6-50.0) % MCHC 31.5 L (32.0-37.0) g/dL RDW 15.3 H (11.5-14.5) % Monocytes # 1.86 H (0.20-1.00) X 10*3/uL Potassium 3.2 L (3.5-5.5) mmol/L Carbon Dioxide 31.2 H (20.0-27.5) mmol/L Anion Gap 9.80 L (10.00-18.00) mmol/L BUN 6.0 L (9.0-27.0) mg/dL Creatinine 0.5 L (0.6-1.5) mg/dL Calcium 8.3 L (8.7-10.3) mg/dL Microbiology - Last 24 Hours (Table) 06/08/21 16:42 Blood Culture - Preliminary Blood No Growth after 120 hours
[2021-06-15 03:01] VITALS: RESP 18
[2021-06-15 07:07] VITALS: BP 123/79; TEMP 98.1
[2021-06-15] MEDS: IPRATROPIUM-ALBUTEROL 3 ML NEB INHALATION SCH ×2 (08:46→12:23)
[2021-06-15] MEDS: NICOTINE 14MG/24HR PATCH TRANSDERM SCH (09:18)
[2021-06-15] MEDS: POTASSIUM CHLORIDE ER 20 MEQ TAB.ER PO SCH ×3 (09:18→11:17)
[2021-06-15] MEDS: lisinopriL 5 MG TAB PO SCH (09:18)
[2021-06-15] MEDS: cloNIDine HCL 0.1 MG TAB PO SCH (09:19)
[2021-06-15] MEDS: FUROSEMIDE 40 MG TAB PO SCH (09:19)
[2021-06-15] MEDS: HEPARIN SODIUM,PORCINE/PF 5,000 UNIT/0.5 ML SYRINGE SQ SCH (09:19)
[2021-06-15] MEDS: FLUCONAZOLE 100 MG TAB PO SCH (09:19)
[2021-06-15] MEDS: METOPROLOL TARTRATE 50 MG TAB PO SCH (09:19)
[2021-06-15] MEDS: THIAMINE 100 MG TAB PO SCH (09:20)
[2021-06-15] MEDS: PANTOPRAZOLE 40 MG/10 ML VIAL IVP SCH (09:20)
--- NOTE | 2021-06-15 10:22 | P.PN ---
Subjective Progress Note Date: 06/15/21 Principal diagnosis: Shortness of breath, hypoxia This is a 61-year-old male patient with a history of hypertension, alcohol abuse and previous seizures, wound to the right foot. He had been admitted back in February 2021 for acute alcohol intoxication and syncopal episodes. He also had a wound to the right foot. He had left AGAINST MEDICAL ADVICE at that time. He presented here to the emergency room yesterday morning by EMS after suffering a fall and seizure. He had stated he has a seizure about every 3 months and had been compliant with his medications. He ended up being discharged from the emergency room as he was quite anxious to leave. CT scan of the brain revealed no intracranial hemorrhage or mass effect. He was brought back to the emergency room shortly after arriving home and had repeat seizure that lasted approximately 2 minutes. He was post ictal upon arrival and alert and oriented times one. He had admitted to drinking 3-4 beers on a daily basis. He did continue to have seizures in the emergency department and was intubated and transferred to the intensive care unit. He is seen today in consultation. Currently on the mechanical ventilator with settings of assist control of 16, tidal volume 400, FiO2 40% and a PEEP of 5. Morning blood gases revealed a PaO2 of 166, pCO2 43 and a pH of 7.35. that was on 50% FiO2. White count 13.4. Hemoglobin 11.6. Sodium 131. Potassium 3.1. Bicarb 17. BUN 3. Creatinine 0.38. Calcium 6.0. Magnesium 1.3. Right foot wound culture pending. Chest x- ray shows pulmonary vascular congestion with small effusions and adjacent atelectasis/consolidation. Suspicious for aspiration pneumonia. EEG revealed slowing due to medication effect. Otherwise no focal slowing, epileptic form discharges or seizure on the EEG. He has been initiated on Dilantin and Keppra. He is currently sedated on propofol at 20 mcg/kg/m. First set at 10 mg per hour. Norepinephrine at 0.11 mcg/kg/m. Normal saline at 100 ML's per hour. Patient was reevaluated today on 06/10/21, patient remains in the ICU, intubated and mechanically ventilated, his ventilator settings were reviewed, patient is on Precedex, patient had no evidence of seizures over the last 24 hours, and he has been on Precedex for the last 24 hours. He is arousable, follows simple instructions, and he seems to be tolerating CPAP quite well for the last hour or so. Labs today showed WBC count of 11.3 hemoglobin of 12.9 electrolytes are normal renal profile is normal chest x-ray showed mild central vascular congestion with bibasilar infiltrates/atelectasis. I basically suspect that the patient had some sort of aspiration pneumonia. Patient was reevaluated today on 06/11/2021, patient remains in the ICU, patient was extubated yesterday uneventfully, he seems to be doing very well. Patient has been off Precedex this morning, he remains on Zosyn for presumptive aspiration pneumonia, he is actually on 3 L nasal cannula, in no distress, no s eizure activity over the last 24 hours, his IV fluids at 100 mL/h and I cut it down to 50 mL per hour. Patient remains on the CIWA protocol. Today I plan to transfer the patient out of the ICU to a regular medical floor, however will continue seizure precautions, and continue the CIWA protocol. 06/12/2021 patient seen in follow-up on medical surgical floor, patient was noted to be quite short of breath this morning, audibly congested, increasingly tachypneic. His chest x-ray today shows progressive patchy perihilar and right lower lobe infiltrate. Subsequently the patient was given a dose of IV Lasix 60 mg, he was placed on BiPAP support with pressures of 12 and 6 on FiO2 of 100%, he has diuresed 1.7 L in the urine output since then, he is breathing much more comfortably, less tachypneic, his mentation is appropriate, he is answering simple questions. Lung sounds reveal diffuse rhonchi, but overall he admits his breathing is much better. He can even be trialed on high flow nasal cannula. Today's lab 7 reviewed, his white blood cell count is 12.9, hemoglobin is 10.6, sodium is 141, potassium is 3.3, and aggressive electrolyte serum within normal limits, BUN of 5.3, creatinine 0.5, his proBNP came back significantly elevated at 14,652. Patient states he usually takes maintenance dose of Lasix at home. He thinks it usually takes 40 mg on a daily basis although this is not on his home medication list, his last echocardiogram from 03/24/2021 showed EF of 40- 45%, moderate concentric LVH, trace to mild aortic regurgitation, mild mitral regurgitation, mild tricuspid regurgitation, and right ventricular systolic pressure of 47.2 mmHg. He also continues on Zosyn for possibility of aspiration related pneumonia. His sputum culture has shown no growth, but his right foot wound culture showing presumptive staph aureus, final culture is pending at this time. Mentation is much more appropriate, patient is calm and cooperative, no tremors no seizure activity noted. On 06/13/2021 patient seen in follow-up on medical surgical floor, He is awake and alert, oriented 3, sitting up in the recliner, he is off BiPAP support, he is breathing much more comfortably today. 3 L of oxygen pulse ox is 96-99%, his been afebrile, hemodynamically has been stable. No new chest x-ray today. He continues on a once daily dose of Lasix, yesterday he received Nexavar dose of IV Lasix for possibility of interstitial edema, fluid overload, acute exacerbation of CHF, possibility of aspiration pneumonia was also being considered. He is in -1.1 L negative fluid balance over the last 24 hours. Sputum culture has no growth, history right foot wound culture is positive for MSSA, blood cultures show no growth. Patient remains on nebulized bronchodilators, he remains on Zosyn for possibility of aspiration. His had no tremors or seizure activity. Complaints of chest discomfort, no hemoptysis. He has had no acute events overnight. On 06/14/2021 patient seen in follow-up on medical surgical floor. He states he is feeling better, he is on 3 L of oxygen pulse ox is 99%. Breathing comfortably. No complaints of chest discomfort, vital signs have been stable, no fever or chills. Follow-up chest x-ray has been reviewed showing improving right mid and lower lung field infiltrate, a small right-sided pleural effusion. he continues on oral dose of Lasix, he is in -1.3 L net fluid balance over the last 24 hours. Continues on antibiotics for possibility of aspiration, he is on Diflucan and Zosyn. Today's labs have been reviewed, white blood cell count is improving and is down to 9.9, hemoglobin is 10.2, sodium is 138, potassium is 3.2, chloride is 97, BUN is 6, creatinine is 0.5. On 06/15/2021 patient seen in follow-up on medical surgical floor. He is breathing comfortably, he currently remains on 3 L of oxygen pulse ox is 95-96%, his been afebrile, vital signs have been stable. He remains on maintenance dose of Lasix 40 mg, he remains on breathing treatments. Remains on Diflucan. Mentation is appropriate, his, comfortable, his cooperative. He is oriented 3. His CXR showed improving right mid and lower lung field infiltrate and small right-sided pleural effusion. Is in -1.3 L of fluid balance over the last 24 hours. Completed his course of Zosyn, sputum cultures negative. Blood culture is negative. Wound on his right foot showed MSSA. No seizure activity has been noted. Patient has been participating with physical therapy. Patient was deemed to be a fall risk related to on stated gait, patient lives in an apartment with his friend. Assistance is required for his ADLs. Subacute rehab placement was recommended. Objective - Vital Signs Vital signs: Vital Signs Temp 98.1 F 06/15/21 07:06 Pulse 101 H 06/15/21 09:00 Resp 18 06/15/21 07:06 BP 123/79 06/15/21 07:06 Pulse Ox 95 06/15/21 07:06 Intake & Output 06/14/21 06/15/21 06/15/21 18:59 06:59 18:59 Other: Voiding Method Urinal External Catheter # Voids 4 3 - Exam GENERAL EXAM: Alert, pleasant, on 3 L of oxygen pulse ox of 95% 61-year-old white male, sitting up in the chair, in no acute distress HEAD: Normocephalic/atraumatic. EYES: Normal reaction of pupils, equal size. Conjunctiva pink, sclera white. NOSE: Clear with pink turbinates. THROAT: No erythema or exudates. NECK: No masses, no JVD, no thyroid enlargement, no adenopathy. CHEST: No chest wall deformity. Symmetrical expansion. LUNGS: Equal air entry with diffuse rhonchi CVS: Regular rate and rhythm, normal S1 and S2, no gallops, no murmurs, no rubs ABDOMEN: Soft, nontender. No hepatosplenomegaly, normal bowel sounds, no guarding or rigidity. EXTREMITIES: No clubbing, no edema, no cyanosis, 2+ pulses and upper and lower extremities. MUSCULOSKELETAL: Muscle strength and tone normal. SPINE: No scoliosis or deformity SKIN: No rashes CENTRAL NERVOUS SYSTEM: Alert and oriented -3. No focal deficits, tone is normal in all 4 extremities. PSYCHIATRIC: Alert and oriented -3. Appropriate affect. Intact judgment and insight. - Labs CBC & Chem 7: 06/14/21 05:37 06/15/21 05:11 Labs: Abnormal Lab Results - Last 24 Hours (Table) 06/15/21 Range/Units 05:11 Potassium 3.3 L (3.5-5.1) mmol/L Microbiology - Last 24 Hours (Table) 06/08/21 16:42 Blood Culture - Final Blood No Growth after 144 hours Assessment and Plan Plan: Assessment: #1. Acute hypoxic respiratory failure secondary to status epilepticus requiring intubation and mechanical ventilation mostly to protect the airways, successfully weaned and extubated on 06/10/2021. Patient required BiPAP support today on 06/12/2021 possibility of acute exacerbation of systolic CHF and possibility of aspiration pneumonia #2. History of systolic CHF with moderately impaired EF of 40-45%, moderately severe pulmonary hypertension, trace MR and TR #3. Suspect acute aspiration pneumonia, remains on Zosyn #4. Status epilepticus on presentation, no epileptiform discharge or seizure on the EEG, neurology is following #5. Positive drug screen for benzodiazepines and THC #6. History of chronic right foot cellulitis #7. Tobacco dependence syndrome #8. Possible alcohol withdrawal seizures #9. Suspect underlying COPD from smoking Plan: Clinically continues to improve Breathing comfortably Wean FiO2, obtain home oxygen assessment Patient has completed a course of Zosyn Continue maintenance dose of oral Lasix 40 mg Consider discharge planning either to ECF or home Patient will be sent home on nebulized bronchodilators with DuoNeb 4 times daily and as needed for underlying history of COPD Need outpatient follow-up with Dr. Alfred in one week I have personally seen and examined the patient, performed the documentation and the assessment and plan as written. Number of minutes spent on the visit: [10] Time with Patient: Less than 30
[2021-06-15 12:29] VITALS: PULSE 100
== END 2021-06-15 14:41 | disposition home health service (06) | DRG 100 ==
LOC: EC 11:27 → 3SCARD 13:01 → 2SICU 13:44 → 4SSUR 06-11 14:15
PROVIDERS: ADMIT Hospitalist; ATTEND Hospitalist
PROC: 0BH17EZ Insertion of Endotracheal Airway into Trachea, Via Natural or Artificial Opening (ICD-10-PCS; principal; 2021-06-08)
PROC: 5A1945Z Respiratory Ventilation, 24-96 Consecutive Hours (ICD-10-PCS; principal; 2021-06-08)
PROC: 3E043XZ Introduction of Vasopressor into Central Vein, Percutaneous Approach (ICD-10-PCS; 2021-06-08)
PROC: 0D9670Z Drainage of Stomach with Drainage Device, Via Natural or Artificial Opening (ICD-10-PCS; 2021-06-08)
PROC: 5A09357 Assistance with Respiratory Ventilation, Less than 24 Consecutive Hours, Continuous Positive Airway Pressure (ICD-10-PCS; 2021-06-12)
DX: G40.901 Epilepsy, unspecified, not intractable, with status epilepticus (principal); I50.23 Acute on chronic systolic (congestive) heart failure; J69.0 Pneumonitis due to inhalation of food and vomit; J96.01 Acute respiratory failure with hypoxia; E87.1 Hypo-osmolality and hyponatremia; F10.239 Alcohol dependence with withdrawal, unspecified; I95.9 Hypotension, unspecified; J44.0 Chronic obstructive pulmonary disease with (acute) lower respiratory infection; J98.11 Atelectasis; L03.115 Cellulitis of right lower limb; R26.81 Unsteadiness on feet; I08.3 Combined rheumatic disorders of mitral, aortic and tricuspid valves; E87.6 Hypokalemia; F17.210 Nicotine dependence, cigarettes, uncomplicated; I11.0 Hypertensive heart disease with heart failure; I27.20 Pulmonary hypertension, unspecified; S09.90XA Unspecified injury of head, initial encounter; Z63.8 Other specified problems related to primary support group; Z79.899 Other long term (current) drug therapy; Z82.49 Family history of ischemic heart disease and other diseases of the circulatory system; Z91.81 History of falling; Z28.310 Unvaccinated for COVID-19
CPT/HCPCS: 31500; 36415; 36600; 71045; 80048; 80053; 80306; 80320; 82330; 82805; 83735; 83880; 84132; 85025; 85027; 87040; 87070; 87077; 87186; 87205; 93005; 94002; 94003; 94640; 94660; 94760; 95816; 96361; 96365; 96367; 96372; 96375; 96376; 99291

== ENCOUNTER 2021-12-08 18:00 | Emergency (ER) | payer OTHER ==
[2021-12-08 18:19] VITALS: BP 135/77; PULSE 77; RESP 20; TEMP 98
--- NOTE | 2021-12-08 19:01 | ED ---
Extremity Problem HPI - General Chief complaint: Extremity Problem,Nontraumatic Stated complaint: PCP sent, Feet and leg swelling Time Seen by Provider: 12/08/21 18:34 Source: patient, RN notes reviewed Mode of arrival: ambulatory Limitations: no limitations - History of Present Illness Initial comments: 61-year-old male with a history of hypertension who states he's had right calf pain and swelling for last 4 days he denies any injury as any fevers chills nausea vomiting sweats breath chest pain. Seem eyes doctor today and sent here for further evaluation with concern for DVT. No loss of function. MD Complaint: extremity pain, extremity swelling - Related Data Home Medications Medication Instructions Recorded Confirmed Hydrocortisone Cream 1 applic TOPICAL BID PRN 12/08/21 12/08/21 [Hydrocortisone 1% Cream] cloNIDine HCL [Catapres] 0.1 mg PO HS 12/08/21 12/08/21 cloNIDine HCL [Catapres] 0.2 mg PO DAILY 12/08/21 12/08/21 lisinopriL [Prinivil] 10 mg PO DAILY 12/08/21 12/08/21 Previous Rx's Medication Instructions Recorded Metoprolol Tartrate [Lopressor] 100 mg PO BID tab 06/14/21 Allergies Allergy/AdvReac Type Severity Reaction Status Date / Time No Known Allergies Allergy Verified 12/08/21 19:13 Review of Systems ROS Statement: Those systems with pertinent positive or pertinent negative responses have been documented in the HPI. ROS Other: All systems not noted in ROS Statement are negative. Past Medical History Past Medical History: Seizure Disorder History of Any Multi-Drug Resistant Organisms: None Reported Additional Past Surgical History / Comment(s): Right leg fracture repair Past Psychological History: No Psychological Hx Reported Smoking Status: Current every day smoker Past Alcohol Use History: None Reported Past Drug Use History: None Reported - Past Family History Mother Family Medical History: Coronary Artery Disease (CAD) General Exam - General Exam Comments Initial Comments: This is a well-developed well-nourished awake alert oriented 4 male Limitations: no limitations General appearance: alert, in no apparent distress Head exam: Present: atraumatic, normocephalic, normal inspection Eye exam: Present: normal appearance, PERRL, EOMI. Absent: scleral icterus, conjunctival injection, periorbital swelling ENT exam: Present: normal exam, mucous membranes moist Neck exam: Present: normal inspection, full ROM. Absent: tenderness, meningismus, lymphadenopathy Respiratory exam: Present: normal lung sounds bilaterally. Absent: respiratory distress, wheezes, rales, rhonchi, stridor Cardiovascular Exam: Present: regular rate, normal rhythm, normal heart sounds. Absent: systolic murmur, diastolic murmur, rubs, gallop, clicks GI/Abdominal exam: Absent: distended, tenderness, guarding, rebound, rigid Extremities exam: Present: full ROM, tenderness (Right Tenderness with evidence of edema no definitive Homans sign.), normal capillary refill, pedal edema. Absent: joint swelling, calf tenderness Back exam: Present: normal inspection Neurological exam: Present: alert, oriented X3, CN II-XII intact Psychiatric exam: Present: normal affect, normal mood Skin exam: Present: warm, dry, intact, normal color. Absent: rash Course Vital Signs 12/08/21 18:16 Temperature 98 F Pulse Rate 77 Respiratory 20 Rate Blood Pressure 135/77 O2 Sat by Pulse 99 Oximetry Medical Decision Making - Medical Decision Making I did discuss findings with the patient he will be discharged and follow back up with his attending physician for - Radiology Data Radiology results: report reviewed (Imaging reviewed as well as report no evidence of DVT), image reviewed Disposition Clinical Impression: Peripheral edema Disposition: HOME SELF-CARE Condition: Good Instructions (If sedation given, give patient instructions): Edema (ED) Is patient prescribed a controlled substance at d/c from ED?: No Referrals: Pina Bello MD [Primary Care Provider] - 1-2 days Decision Date: 12/08/21 Decision Time: 21:28
--- NOTE | 2021-12-08 20:08 | US ---
EXAMINATION TYPE: US venous doppler duplex LE RT DATE OF EXAM: 12/08/2021 7:34 PM COMPARISON: NONE CLINICAL HISTORY: DVT suspected. Right leg redness and swelling. Pt states he has an infection in keon t SIDE PERFORMED: Right TECHNIQUE: The lower extremity deep venous system is examined utilizing real time linear array sonog jenny with graded compression, doppler sonography and color-flow sonography. VESSELS IMAGED: Common Femoral Vein Deep Femoral Vein Greater Saphenous Vein * Femoral Vein Popliteal Vein Small Saphenous Vein * Proximal Calf Veins (* superficial vessels) FINDINGS: Grayscale, color doppler, spectral doppler imaging performed of the deep veins of the lower extremities. There is normal flow, compressibility, vascular waveforms. IMPRESSION: Negative DVT, right lower extremity.
== END 2021-12-08 21:38 | disposition home or self-care (01) ==
LOC: EC 18:00
DX: R60.9 Edema, unspecified (principal); F17.200 Nicotine dependence, unspecified, uncomplicated; Z79.899 Other long term (current) drug therapy
CPT/HCPCS: 99284

== ENCOUNTER 2022-02-21 15:32 | Inpatient (IN) | payer MEDICARE, OTHER ==
[2022-02-21 15:38] LABS: Glucose,Whole Blood 266 mg/dL (70-110)
[2022-02-21] MEDS ORDERED: SODIUM CHLORIDE 0.9% 1,000 ML IV ONE (15:42)
[2022-02-21] MEDS ORDERED: THIAMINE 100 MG/ML 2 ML VIAL IM STA (15:43)
[2022-02-21] MEDS ORDERED: LORazepam 2 MG/ML INJ IV PRN (15:43)
[2022-02-21] MEDS ORDERED: levETIRAcetam IV 2,000 MG in SODIUM CHLORIDE 0.9% 250 ML IVPB ONE (15:45)
[2022-02-21 16:10] LABS: Basophils # (A) 0.1 k/uL (0-0.2); Basophils % (A) 1 %; Eosinophils # (A) 0.3 k/uL (0-0.7); Eosinophils % (A) 2 %; HCT 40.9 % (39.0-53.0); HGB 13.1 gm/dL (13.0-17.5); Hypochromasia Slight; Lymphocytes # (A) 3.6 k/uL (1.0-4.8); Lymphocytes % (A) 19 %; MCH 30.7 pg (25.0-35.0); MCHC 32.1 g/dL (31.0-37.0); MCV 95.6 fL (80.0-100.0); Mean Platelet Volume 7.1; Monocytes # (A) 0.6 k/uL (0-1.0); Monocytes % (A) 3 %; Neutrophils # (A) 13.6 k/uL (1.3-7.7); Neutrophils % (A) 73 %; Platelet Count 471 k/uL (150-450); RBC 4.28 m/uL (4.30-5.90); RDW 13.1 % (11.5-15.5); WBC 18.6 k/uL (3.8-10.6)
[2022-02-21 16:21] LABS: AST 39 U/L (17-59); African American GFR (CKD) >90 (>60 ml/min/1.73 sqM); Albumin 2.9 g/dL (3.5-5.0); Alcohol <10 mg/dL; Alkaline Phosphatase 162 U/L (38-126); Anion Gap 9 mmol/L; Blood Urea Nitrogen 6 mg/dL (9-20); Calcium 8.1 mg/dL (8.4-10.2); Carbon Dioxide 19 mmol/L (22-30); Chloride 96 mmol/L (98-107); Glucose 261 mg/dL (74-99); Lactic Acid, Venous 7.9 mmol/L (0.7-2.0); Non-African American GFR(CKD) >90 (>60 ml/min/1.73 sqM); Potassium 4.9 mmol/L (3.5-5.1); Sodium 124 mmol/L (137-145); Total Bilirubin 0.2 mg/dL (0.2-1.3); Total Protein 6.7 g/dL (6.3-8.2)
[2022-02-21 16:27] LABS: ALT 30 U/L (4-49)
--- NOTE | 2022-02-21 16:41 | CT ---
EXAMINATION TYPE: CT brain cspine wo con CT DLP: 1301.5 mGycm, Automated exposure control for dose reduction was used. DATE OF EXAM: 02/21/2022 4:25 PM COMPARISON: CT brain C-spine 06/08/2021. CLINICAL INDICATION:Male, 61 years old with history of Altered mental status; AMS. poss seizure TECHNIQUE: Brain: Multiple axial CT images of the brain were obtained without IV contrast. Cspine: Axial CT images from the skull base to the inferior aspect of T2 we obtained without intraven ous contrast. Coronal and sagittal reformatted images were also reviewed. FINDINGS: Brain: Extra-axial spaces: No abnormal extra-axial fluid collections. Ventricular system: Within normal limits Cerebral parenchyma: Cerebral atrophy. No acute intraparenchymal hemorrhage or mass effect. The francois -white junction is well differentiated. Scattered hypoattenuating areas are seen within the white mat ter. Cerebellum: Unremarkable. Mass effect: No evidence of midline shift. Intracranial vasculature: unremarkable Soft tissues: Normal. Calvarium/osseous structures: No depressed skull fracture. Paranasal sinuses and mastoid air cells: The mastoid air cells are clear. Chronic inflammatory change s of bilateral maxillary sinuses. Visualized orbits: Orbital contents are intact. Other: Nasal pharyngeal tube identified. Cervical spine: Fracture: None. Osseous structures: Multilevel facet arthropathy. Vertebral alignment: Within normal limits. Spinal canal/Neural Foramina: No evidence of significant spinal canal narrowing. No evidence for sign ificant neural foraminal stenosis. Neck soft tissues: Prevertebral soft tissues are within normal limits. Other: The airway is patent. Mild centrilobular emphysematous changes with intralobular septal thicke nick and patchy groundglass opacities within the bilateral upper lobes with left greater than right. Vascular sclerosis. IMPRESSION: 1. No acute intracranial process. 2. Nonspecific white matter changes, likely secondary to chronic small vessel ischemic disease. 3. No evidence of cervical spine fracture. 4. Mild COPD changes with intralobular septal thickening and patchy groundglass opacities within the bilateral upper lobes concerning for infectious/inflammatory process.
[2022-02-21 17:21] LABS: INR 0.9 (<1.2); Partial Thromboplastin Time 23.2 sec (22.0-30.0); Prothrombin Time 9.6 sec (9.0-12.0)
--- NOTE | 2022-02-21 17:40 | XR ---
EXAMINATION TYPE: XR foot limited bilateral DATE OF EXAM: 02/21/2022 5:06 PM INDICATION: Patient age:Male; 61 years old; Reason for study: eval for osteomyelitis. 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. COMPARISON: None TECHNIQUE: Bilateral feet were examined in the AP, oblique, and lateral projections. FINDINGS: No evidence of any acute osseous pathology. No evidence of soft tissue swelling. Joints are preserve d. No evidence of osseous erosion. Scattered multifocal degeneration with osteophyte formation and joint space and most pronounced in the interphalangeal joints. IMPRESSION: 1. No evidence of acute fracture. 2. No evidence for osteomyelitis. 3. Multifocal osteoarthrosis changes.
--- NOTE | 2022-02-21 17:42 | XR ---
EXAMINATION TYPE: XR chest 1V portable DATE OF EXAM: 02/21/2022 5:06 PM COMPARISON: Chest radiographs from 06/14/2021e TECHNIQUE: XR chest 1V portable Portable AP radiograph of the chest. CLINICAL INDICATION:Male, 61 years old with history of altered mental status; FINDINGS: Lungs/Pleura: Multifocal airspace opacities most pronounced around the left hilum. No evidence of pne umothorax or pleural effusion. Pulmonary vascularity: Unremarkable. Heart/mediastinum: Cardiomediastinal silhouette is unremarkable. Musculoskeletal: No acute osseous pathology. IMPRESSION: Multifocal airspace opacities most pronounced on the left hilar region. Findings concerning for pneum onia.
[2022-02-21] MEDS ORDERED: CEFEPIME 2 GM in SODIUM CHLORIDE 0.9% 50 ML IVPB STA (17:46)
[2022-02-21] MEDS ORDERED: VANCOMYCIN IV PER PHARMACY 1 EACH MISC MISCELLANE PRN (17:46)
[2022-02-21] MEDS ORDERED: CEFEPIME 2 GM in SODIUM CHLORIDE 0.9% 100 ML IVPB STA (17:48)
[2022-02-21] MEDS ORDERED: VANCOMYCIN 1,000 MG in SODIUM CHLORIDE 0.9% 250 ML IVPB ONE (18:00)
[2022-02-21] MEDS ORDERED: SODIUM CHLORIDE 0.9% 1,000 ML IV STA ×3 (18:09→21:59)
--- NOTE | 2022-02-21 19:00 | ED ---
General Adult HPI - General Chief complaint: Seizure Stated complaint: seizure Time Seen by Provider: 02/21/22 15:42 Source: family, EMS, RN notes reviewed, old records reviewed Mode of arrival: EMS Limitations: altered mental status - History of Present Illness Initial comments: Patient is a 61-year-old male with past medical history remarkable for alcohol abuse, chronic foot wounds being seen by wound care, seizure disorder not compliant with neurology follow-up, antiepileptic medications. Presents emergency Department with acute onset seizure earlier today. Seizure occurred prior to arrival. Had 3 intermittent seizures within 1 hour. After the first, he was acting differently which is why they called EMS. EMS arrived and patient was having leftward gaze deviation and was actively seizing. They administered 5 mg of IV Versed and seizure stopped. Patient was postictal following the seizure, and required nasal trumpet as well as subtle mental oxygenation. Presents for further evaluation at this time. Patient's stepdaughter presents and provide some additional history, including the chronic foot wounds. He does see wound care for management of this. Unknown if he is compliant with medications. No other acute complaints that she is aware of at this time. Patient is unable to find any from history. Presents for breakthrough seizures. He does have a history of alcohol abuse. - Related Data Home Medications Medication Instructions Recorded Confirmed Hydrocortisone Cream 1 applic TOPICAL BID PRN 12/08/21 02/21/22 [Hydrocortisone 1% Cream] cloNIDine HCL [Catapres] 0.1 mg PO HS 12/08/21 02/21/22 cloNIDine HCL [Catapres] 0.2 mg PO DAILY 12/08/21 02/21/22 lisinopriL [Prinivil] 10 mg PO DAILY 12/08/21 02/21/22 Triamcinolone 0.1% Cream [Kenalog 1 applic TOPICAL DAILY 02/21/22 02/21/22 0.1% Cream] Previous Rx's Medication Instructions Recorded Metoprolol Tartrate [Lopressor] 100 mg PO BID tab 06/14/21 Allergies Allergy/AdvReac Type Severity Reaction Status Date / Time No Known Allergies Allergy Verified 02/21/22 16:09 Review of Systems ROS Statement: Those systems with pertinent positive or pertinent negative responses have been documented in the HPI. ROS Other: All systems not noted in ROS Statement are negative. Past Medical History Past Medical History: Seizure Disorder History of Any Multi-Drug Resistant Organisms: None Reported Additional Past Surgical History / Comment(s): Right leg fracture repair Past Psychological History: No Psychological Hx Reported Smoking Status: Current every day smoker Past Alcohol Use History: None Reported, Daily Past Drug Use History: None Reported - Past Family History Mother Family Medical History: Coronary Artery Disease (CAD) General Exam - General Exam Comments Initial Comments: General: Appears in no acute distress. Minimally responsive, but snoring. Appears postictal. HEAD: Normal with no signs of head trauma. EYES: PERRLA, EOMI, conjunctiva normal, no discharge. Pupils are 3 mm and equal bilaterally. ENT: Hearing grossly intact, normal oropharynx. Nasal trumpet in place. RESPIRATORY: Left-sided rhonchorus breath sounds, bilateral end expiratory wheezing C/V: Regular rate and rhythm. S1 and S2 auscultated, no edema, peripheral pulses 2+ and intact throughout ABD: Abd is soft, nontender, nondistended EXT: Normal range of motion, no obvious deformity SKIN: Bilateral chronic foot skin changes. NEURO: Not alert or oriented. Patient is currently postictal. Does respond to sternal rub by localizing to pain. Does not open eyes freely. Coumadin mental status likely secondary to postictal state as well as Versed administration. Limitations: altered mental status Course Vital Signs 02/21/22 02/21/22 02/21/22 15:33 17:30 18:00 Temperature 97.5 F L Pulse Rate 108 H 120 H 123 H Respiratory 26 H 20 22 Rate Blood Pressure 113/84 115/89 112/87 O2 Sat by Pulse 94 L 100 100 Oximetry Fraction of Inspired Oxygen (FIO2) 02/21/22 02/21/22 02/21/22 19:35 19:52 19:59 Temperature 97.7 F 97.3 F L Pulse Rate 125 H 123 H Respiratory 24 28 H Rate Blood Pressure 120/90 114/81 O2 Sat by Pulse 95 Oximetry Fraction of 60 Inspired Oxygen (FIO2) 02/21/22 02/21/22 02/21/22 20:01 20:02 21:13 Temperature Pulse Rate 123 H 130 H Respiratory 30 H Rate Blood Pressure 99/80 O2 Sat by Pulse Oximetry Fraction of 60 Inspired Oxygen (FIO2) Procedures - ABG Interpretation Ph: 7.117 PCO2: 70.9 PO2: 163 Bicarbonate: 22.9 Interpretation: respiratory acidosis - Sepsis Sepsis Focused Exam #1 Time Sepsis Criteria Met: 17:40 Sepsis Focused Exam Date: 02/21/22 Sepsis Focused Exam Time: 20:30 Sepsis Focused Exam Complete: Yes Vital Signs & RN Notes Reviewed: Yes Capillary Refill: > 2 Seconds: Fingers, Toes Peripheral Pulses: Normal: Radial (R), Radial (L) Skin Color: Normal for Patient Respiratory Exam: rhonchi Cardiovascular Exam: tachycardia Medical Decision Making - Medical Decision Making Was pt. sent in by a medical professional or institution? @ -No Did you speak to anyone other than the patient for history? @ -Family, EMS Did you review nursing and triage notes? @ -I agree. Were old charts reviewed? @ -Previous admissions Differential Diagnosis? @ -Differential Seizure: Recurrent seizure disorder, febrile seizure, alcohol withdrawal, stimulants, meningitis, encephalitis, intercranial hemorrhage, intracranial tumor, stroke, eclampsia, thyrotoxicosis, hypocalcemia, hyponatremia, hypernatremia, hypomagnesemia, psychogenic, this is not meant to be an all-inclusive list. EKG interpreted by me (3pts min.)? @ -Yes. See EKG note X-rays interpreted by me (1pt min.)? @ -Yes. Chest x-ray shows Multifocal pneumonia, primarily in left lung. Foot x-ray reveals no acute findings. CT interpreted by me (1pt min.)? @ -Yes. No acute intracranial process, hemorrhage. U/S interpreted by me (1pt. min.)? @ -none What testing was considered but not performed? (CT, X-rays, U/S, labs)? Why? @None What meds were considered but not given? Why? @ -none Did you discuss the management of the patient with other professionals? @ -Yes. Dr. Rayo of ICU who was in agreement with the plan. Accepted the patient to the ICU. Did you reconcile home meds? @ -none Was smoking cessation discussed for >3mins.? @ -none Was critical care preformed (if so, how long)? @ -Yes. 35 minutes. See additional care note. Were there social determinants of health that impacted care today? How? (Homelessness, low income, unemployed, alcoholism, drug addiction, transportation, low edu. Level, literacy, decrease access to med. care, half-way, rehab)? @ -None Was there de-escalation of care discussed even if they declined? (Discuss DNR or withdrawal of care, Hospice)? @ -No What co-morbidities impacted this encounter? (DM, HTN, Smoking, COPD, CAD, Cancer, CVA, Hep., AIDS, mental health diagnosis, sleep apnea, morbid obesity)? @ -Alcohol abuse, seizure disorder. Was patient admitted / discharged? @ -Patient was evaluated for breakthrough seizure. He is currently not seizing. Appears postictal likely secondary to versed as well as postictal state. Vital signs are within acceptable limits but he is slightly tachycardic. We will work on weaning him off oxygen, and we'll obtain altered mental status workup. Family was in agreement this plan. Laboratory studies are reviewed and were remarkable for leukocytosis of 18.6. Likely reactive as well as possibly secondary to acute infectious etiology. A ppears dehydrated with a hyponatremia of 124 and hypochloremia 96. I progressively to 261 with no evidence of DKA. Lactic acid is elevated likely secondary to acute seizure activity at 7.9. Alcohol level is undetectable. Imaging was remarkable for findings of pneumonia. CT brain showed no acute injury or acute process. Foot x-rays also show no acute process. On reevaluation come patient is slightly more alert at this time. Based on prior notes he does have prolonged postictal state following episodes of seizures. Remains postictal at this time but is freely moving now. He is more alert but not oriented. I would like to admit him at this time. Patient does have an elevated lactic acid, a leukocytosis, and is tachycardic and does meet sepsis criteria at 5:40 PM. Patient was started on broad-spectrum antibiotics clindamycin and cefepime. He'll receive 30 mL per KG fluids. Patient did receive 2 g of Keppra and will be started on 1 g twice a day until no neurology evaluate the patient. Neurology was consulted. He was placed on CIWA protocol with Ativan. Patient requires admission to the hospital at this time. Patient did have an ABG drawn, which showed hypercarbia which may contribute to his current symptoms. He is also mildly wheezy. We will continue him treatment with IV steroids as well as breathing treatments for the COPD exacerbation. Repeat lactic acid was within acceptable limits. Patient was placed on BiPAP. He tolerated it well. I spoke with the admitting physician, Dr. Jones after multiple attempts to reach them. He was in agreement this plan. We both agreed that I will speak with the ICU attending, Dr. Rayo regarding admission and management. Repeat ABG does show improvement in the CO2. He is saturating well on BiPAP. Vital signs otherwise are stable, however he is persistently mildly tachycardic. We will continue therapy as is. He was in agreement with this plan but he did accept the patient to the ICU. Patient's mental status is somewhat improved at this time. No seizure-like activity observed in the emergency department at any point. Patient is responding more to painful stimuli at this point. He still does not communicate well at this time. We'll continue to monitor. Undiagnosed new problem with uncertain prognosis? @ -Pneumonia, altered mental status like we secondary to postictal state, seizure disorder Drug Therapy requiring intensive monitoring for toxicity (Heparin, Nitro, Insulin, Cardizem)? @ -none Were any procedures done? @ -none Diagnosis/symptom? @ -Acute on chronic seizure disorder, sepsis secondary to pneumonia, dehydration, hypoxia likely secondary to above requiring noninvasive partial pressure ventilation, hypercarbia, COPD exacerbation, history of alcohol abuse and withdrawal. Acute, or Chronic, or Acute on Chronic? @ -Acute, acute on chronic. Uncomplicated (without systemic symptoms) or Complicated (systemic symptoms)? @ -Complicated Side effects of treatment? @ -none Exacerbation, Progression, or Severe Exacerbation] @ -COPD exacerbation Poses a threat to life or bodily function? @ -Yes - Lab Data Result diagrams: 02/21/22 15:47 02/21/22 15:47 Lab Results 02/21/22 02/21/22 02/21/22 Range/Units 15:36 15:47 15:47 WBC 18.6 H (3.8-10.6) k/uL RBC 4.28 L (4.30-5.90) m/uL Hgb 13.1 (13.0-17.5) gm/dL Hct 40.9 (39.0-53.0) % MCV 95.6 (80.0-100.0) fL MCH 30.7 (25.0-35.0) pg MCHC 32.1 (31.0-37.0) g/dL RDW 13.1 (11.5-15.5) % Plt Count 471 H (150-450) k/uL MPV 7.1 Neutrophils % 73 % Lymphocytes % 19 % Monocytes % 3 % Eosinophils % 2 % Basophils % 1 % Neutrophils # 13.6 H (1.3-7.7) k/uL Lymphocytes # 3.6 (1.0-4.8) k/uL Monocytes # 0.6 (0-1.0) k/uL Eosinophils # 0.3 (0-0.7) k/uL Basophils # 0.1 (0-0.2) k/uL Hypochromasia Slight PT 9.6 (9.0-12.0) sec INR 0.9 (<1.2) APTT 23.2 (22.0-30.0) sec Sample Site ABG pH (7.35-7.45) ABG pCO2 (35-45) mmHg ABG pO2 (83-108) mmHg ABG HCO3 (21-25) mmol/L ABG Total CO2 (19-24) mmol/L ABG O2 Saturation (94-97) % ABG Base Excess mmol/L Trae Test FiO2 % Sodium (137-145) mmol/L Potassium (3.5-5.1) mmol/L Chloride (98-107) mmol/L Carbon Dioxide (22-30) mmol/L Anion Gap mmol/L BUN (9-20) mg/dL Creatinine (0.66-1.25) mg/dL Est GFR (CKD-EPI)AfAm (>60 ml/min/1.73 sqM) Est GFR (CKD-EPI)NonAf (>60 ml/min/1.73 sqM) Glucose (74-99) mg/dL POC Glucose (mg/dL) 266 H (70-110) mg/dL POC Glu Party Host ID Angelica Al Lactic Ac Sepsis Rflx Plasma Lactic Acid Graham (0.7-2.0) mmol/L Calcium (8.4-10.2) mg/dL Total Bilirubin (0.2-1.3) mg/dL AST (17-59) U/L ALT (4-49) U/L Alkaline Phosphatase (38-126) U/L Ammonia (<30) umol/L Total Protein (6.3-8.2) g/dL Albumin (3.5-5.0) g/dL Serum Alcohol mg/dL Influenza Type A (PCR) (Not Detectd) Influenza Type B (PCR) (Not Detectd) RSV (PCR) (Not Detectd) SARS-CoV-2 (PCR) (Not Detectd) 02/21/22 02/21/22 02/21/22 Range/Units 15:47 15:47 16:21 WBC (3.8-10.6) k/uL RBC (4.30-5.90) m/uL Hgb (13.0-17.5) gm/dL Hct (39.0-53.0) % MCV (80.0-100.0) fL MCH (25.0-35.0) pg MCHC (31.0-37.0) g/dL RDW (11.5-15.5) % Plt Count (150-450) k/uL MPV Neutrophils % % Lymphocytes % % Monocytes % % Eosinophils % % Basophils % % Neutrophils # (1.3-7.7) k/uL Lymphocytes # (1.0-4.8) k/uL Monocytes # (0-1.0) k/uL Eosinophils # (0-0.7) k/uL Basophils # (0-0.2) k/uL Hypochromasia PT (9.0-12.0) sec INR (<1.2) APTT (22.0-30.0) sec Sample Site ABG pH (7.35-7.45) ABG pCO2 (35-45) mmHg ABG pO2 (83-108) mmHg ABG HCO3 (21-25) mmol/L ABG Total CO2 (19-24) mmol/L ABG O2 Saturation (94-97) % ABG Base Excess mmol/L Trae Test FiO2 % Sodium 124 L (137-145) mmol/L Potassium 4.9 (3.5-5.1) mmol/L Chloride 96 L (98-107) mmol/L Carbon Dioxide 19 L (22-30) mmol/L Anion Gap 9 mmol/L BUN 6 L (9-20) mg/dL Creatinine 0.66 (0.66-1.25) mg/dL Est GFR (CKD-EPI)AfAm >90 (>60 ml/min/1.73 sqM) Est GFR (CKD-EPI)NonAf >90 (>60 ml/min/1.73 sqM) Glucose 261 H (74-99) mg/dL POC Glucose (mg/dL) (70-110) mg/dL POC Glu Party Host ID Lactic Ac Sepsis Rflx Y Plasma Lactic Acid Graham 7.9 H* (0.7-2.0) mmol/L Calcium 8.1 L (8.4-10.2) mg/dL Total Bilirubin 0.2 (0.2-1.3) mg/dL AST 39 (17-59) U/L ALT 30 (4-49) U/L Alkaline Phosphatase 162 H (38-126) U/L Ammonia 26 (<30) umol/L Total Protein 6.7 (6.3-8.2) g/dL Albumin 2.9 L (3.5-5.0) g/dL Serum Alcohol <10 mg/dL Influenza Type A (PCR) (Not Detectd) Influenza Type B (PCR) (Not Detectd) RSV (PCR) (Not Detectd) SARS-CoV-2 (PCR) (Not Detectd) 02/21/22 02/21/22 02/21/22 Range/Units 17:50 18:45 19:22 WBC (3.8-10.6) k/uL RBC (4.30-5.90) m/uL Hgb (13.0-17.5) gm/dL Hct (39.0-53.0) % MCV (80.0-100.0) fL MCH (25.0-35.0) pg MCHC (31.0-37.0) g/dL RDW (11.5-15.5) % Plt Count (150-450) k/uL MPV Neutrophils % % Lymphocytes % % Monocytes % % Eosinophils % % Basophils % % Neutrophils # (1.3-7.7) k/uL Lymphocytes # (1.0-4.8) k/uL Monocytes # (0-1.0) k/uL Eosinophils # (0-0.7) k/uL Basophils # (0-0.2) k/uL Hypochromasia PT (9.0-12.0) sec INR (<1.2) APTT (22.0-30.0) sec Sample Site Right Radial ABG pH 7.12 L* (7.35-7.45) ABG pCO2 71 H* (35-45) mmHg ABG pO2 163 H (83-108) mmHg ABG HCO3 23 (21-25) mmol/L ABG Total CO2 25 H (19-24) mmol/L ABG O2 Saturation 98.6 H (94-97) % ABG Base Excess -6.5 mmol/L Trae Test Yes FiO2 100 % Sodium (137-145) mmol/L Potassium (3.5-5.1) mmol/L Chloride (98-107) mmol/L Carbon Dioxide (22-30) mmol/L Anion Gap mmol/L BUN (9-20) mg/dL Creatinine (0.66-1.25) mg/dL Est GFR (CKD-EPI)AfAm (>60 ml/min/1.73 sqM) Est GFR (CKD-EPI)NonAf (>60 ml/min/1.73 sqM) Glucose (74-99) mg/dL POC Glucose (mg/dL) (70-110) mg/dL POC Glu Party Host ID Lactic Ac Sepsis Rflx Plasma Lactic Acid Graham 1.7 (0.7-2.0) mmol/L Calcium (8.4-10.2) mg/dL Total Bilirubin (0.2-1.3) mg/dL AST (17-59) U/L ALT (4-49) U/L Alkaline Phosphatase (38-126) U/L Ammonia (<30) umol/L Total Protein (6.3-8.2) g/dL Albumin (3.5-5.0) g/dL Serum Alcohol mg/dL Influenza Type A (PCR) Not Detected (Not Detectd) Influenza Type B (PCR) Not Detected (Not Detectd) RSV (PCR) Not Detected (Not Detectd) SARS-CoV-2 (PCR) Not Detected (Not Detectd) - EKG Data -: EKG Interpreted by Me EKG Comments: 12-lead Electrocardiogram Interpretation Note EKG was reviewed and interpreted by myself. 12-lead ECG performed at 1542 is interpreted by me as revealing sinus tachycardia at a rate of 106 beats per minute. [place] is rightward deviated. Right bundle branch block present. HI intervals 175 ms, QRS ration is 140 ms, QTc is 422 ms.. There were no ST or T wave abnormalities to suggest myocardial ischemia or injury. R wave progression across the precordium was satisfactory. By my interpretation this EKG is non- diagnostic for acute ischemia. When compared with EKG from May 2021,no significant change. Critical Care Time Critical Care Time: Yes Total Critical Care Time: 35 Critical Care Time: Upon my evaluation, this patient had a high probability of imminent or life- threatening deterioration due to seizure, pneumonia, sepsis, which required my direct attention, intervention, and personal management. I have personally provided 35 minutes of critical care time exclusive of time spent on separately billable procedures. Time includes review of laboratory data, radiology results, discussion with consultants, and monitoring for potential decompensation. Interventions were performed as documented in my note. Disposition Clinical Impression: Seizure, Alcohol withdrawal, Sepsis, Pneumonia, Hypercarbia, Hypoxia Disposition: ADMITTED IP TO THIS HOSP Condition: Serious Time of Disposition: 19:35
[2022-02-21] MEDS: LORazepam 2 MG/ML INJ IV PRN ×2 (19:10→19:35)
[2022-02-21 19:30] LABS: ABG Base Excess -6.5 mmol/L; ABG HCO3 23 mmol/L (21-25); ABG Oxygen Saturation 98.6 % (94-97); ABG PO2 163 mmHg (83-108); ABG TCO2 25 mmol/L (19-24); Allen Test Performed? Yes
[2022-02-21 19:49] LABS: ABG PH 7.12 (7.35-7.45)
[2022-02-21 19:50] LABS: ABG PCO2 71 mmHg (35-45)
[2022-02-21] MEDS ORDERED: IPRATROPIUM-ALBUTEROL 3 ML NEB INHALATION STA (19:54)
[2022-02-21] MEDS ORDERED: NALOXONE 0.4 MG/ML 1 ML VIAL IV PRN (20:04)
[2022-02-21] MEDS ORDERED: ACETAMINOPHEN TAB 325 MG TAB PO PRN (20:04)
[2022-02-21] MEDS ORDERED: methylPREDNISolone SOD SUCCI 125 MG/2 ML VIAL IV STA (20:07)
[2022-02-21] MEDS ORDERED: methylPREDNISolone SOD SUCCI 40 MG/ML 1 ML VIAL IV SCH (21:00)
[2022-02-21 21:41] LABS: ABG Base Excess -6.1 mmol/L; ABG HCO3 21 mmol/L (21-25); ABG Oxygen Saturation 92.2 % (94-97); ABG PCO2 47 mmHg (35-45); ABG PH 7.26 (7.35-7.45); ABG PO2 71 mmHg (83-108); ABG TCO2 23 mmol/L (19-24); Allen Test Performed? Yes
[2022-02-22] MEDS: IPRATROPIUM-ALBUTEROL 3 ML NEB INHALATION SCH ×7 (00:07→20:07)
[2022-02-22] MEDS: HEPARIN SODIUM,PORCINE/PF 5,000 UNIT/0.5 ML SYRINGE SQ SCH ×4 (00:32→23:35)
[2022-02-22] MEDS: LORazepam 2 MG/ML INJ IV PRN ×4 (04:11→23:43)
[2022-02-22 05:11] LABS: Appearance,Urine Cloudy (Clear); Bacteria,Urine Rare /hpf; Bilirubin,Urine Negative (Negative); Blood,Urine Negative (Negative); Color,Urine Yellow; Glucose,Urine (UA) Trace (Negative); Hyaline Casts,Urine 3 /lpf (0-2); Ketones,Urine Trace (Negative); Leukocyte Esterase,Urine Small (Negative); Mucus,Urine Few /hpf; Nitrite,Urine Negative (Negative); PH, Urine 5.5 (5.0-8.0); Protein,Urine Trace (Negative); RBC,Urine 1 /hpf (0-5); Specific Gravity,Urine 1.021 (1.001-1.035); Squamous Epithelial Cell,Urine 2 /hpf (0-4); Urobilinogen,Urine <2.0 mg/dL (<2.0); WBC,Urine 21 /hpf (0-5)
[2022-02-22 05:16] LABS: Cocaine Screen,Urine Not Detected (NotDetected); Phencyclidine Screen,Urine Not Detected (NotDetected); Urn Cannabinoid Scrn Detected (NotDetected)
[2022-02-22 05:17] LABS: Amphetamine Screen,Urine Not Detected (NotDetected); Barbiturate Screen,Urine Not Detected (NotDetected); Benzodiazepines Screen,Urine Detected (NotDetected); Methadone Screen, Urine Not Detected (NotDetected); Opiate Screen,Urine Not Detected (NotDetected); Oxycodone Screen, Urine Not Detected (NotDetected); Tricyclic Antidepressant,Urine Not Detected (NotDetected)
[2022-02-22] MEDS ORDERED: VANCOMYCIN 1,000 MG in SODIUM CHLORIDE 0.9% 250 ML IVPB SCH (07:00)
[2022-02-22 07:38] LABS: Basophils # (A) 0.1 k/uL (0-0.2); Basophils % (A) 0 %; Eosinophils % (A) 0 %; HCT 43.6 % (39.0-53.0); HGB 13.5 gm/dL (13.0-17.5); Hypochromasia Marked; Lymphocytes % (A) 4 %; MCH 30.3 pg (25.0-35.0); MCHC 31.1 g/dL (31.0-37.0); MCV 97.4 fL (80.0-100.0); Mean Platelet Volume 7.7; Monocytes # (A) 1.1 k/uL (0-1.0); Monocytes % (A) 4 %; Neutrophils # (A) 23.9 k/uL (1.3-7.7); Neutrophils % (A) 90 %; Platelet Count 351 k/uL (150-450); RBC 4.47 m/uL (4.30-5.90); RDW 13.3 % (11.5-15.5); WBC 26.4 k/uL (3.8-10.6)
--- NOTE | 2022-02-22 07:56 | P.CNPUL ---
History of Present Illness Consult date: 02/22/22 Requesting physician: Arnaldo Jones Reason for consult: other Chief complaint: Questionable seizure history. History of present illness: Pulmonary consult dated 02/22/2022. 61-year-old male who presents to the emergency room on February 21, via EMS, for possible seizure. The patient has a history of chronic alcohol abuse, and chronic foot wounds. He apparently does have a history of seizure disorder, and is apparently noncompliant with his seizure medications. He apparently presented to the emergency department with acute onset of seizure, earlier on the day of admission, which was February 21. He apparently had 3 different seizure episodes within one hour. When EMS arrived, he apparently was actively seizing. They administered 5 mg of IV Versed, and the seizure stopped. The pat ient was apparently postictal after that. Since being in the emergency department, the patient has been improving neurologically. He was on BiPAP for a short period of time with settings of 15/5 and 60%, up until about 3:00 in the morning. Now he is on between 6-7 L of nasal oxygen. He is getting saline at keep vein open. Current vital signs include sinus tachycardia with a rate of 138, blood pressure 116/85 respiratory rate 22 and saturations 90-92%. White count 26.4, hemoglobin 13.5, hematocrit 43.6, and platelet count was normal. Most recent blood gases show pO2 71, pCO2 47, and a pH is 7.26. That was on BiPAP at 60%. Troponin was 0.030. Initial pH was 7.12. Sodium 124, potassium 4.9, chlorides 96, CO2 19, BUN 6, creatinine 0.66. Urine screen was positive for benzodiazepines, and marijuana. Chest x-ray shows patchy airspace disease in the left hilar region, consistent with possible aspiration pneumonia. Review of Systems REVIEW OF SYSTEMS: CONSTITUTIONAL: [Negative.] NEUROLOGIC: Recurrent seizure activity. HEENT: [ Negative.] CARDIAC: [Negative.] PULMONARY: [Negative.] GI: [Negative.] : [Negative.] RHEUMATOLOGIC: [ Negative.] IMMUNOLOGIC: [ Negative.] ENDOCRINE: [Negative. ] DERMATOLOGIC: [Negative.] Past Medical History Past Medical History: Seizure Disorder History of Any Multi-Drug Resistant Organisms: None Reported Additional Past Surgical History / Comment(s): Right leg fracture repair Past Psychological History: No Psychological Hx Reported Smoking Status: Current every day smoker Past Alcohol Use History: None Reported, Daily Past Drug Use History: None Reported - Past Family History Mother Family Medical History: Coronary Artery Disease (CAD) Medications and Allergies Home Medications Medication Instructions Recorded Confirmed Type Metoprolol Tartrate [Lopressor] 100 mg PO BID tab 06/14/21 02/21/22 Rx Hydrocortisone Cream 1 applic TOPICAL BID PRN 12/08/21 02/21/22 History [Hydrocortisone 1% Cream] cloNIDine HCL [Catapres] 0.1 mg PO HS 12/08/21 02/21/22 History cloNIDine HCL [Catapres] 0.2 mg PO DAILY 12/08/21 02/21/22 History lisinopriL [Prinivil] 10 mg PO DAILY 12/08/21 02/21/22 History Triamcinolone 0.1% Cream [Kenalog 1 applic TOPICAL DAILY 02/21/22 02/21/22 History 0.1% Cream] Allergies Allergy/AdvReac Type Severity Reaction Status Date / Time No Known Allergies Allergy Verified 02/21/22 16:09 Physical Exam Osteopathic Statement: *. No significant issues noted on an osteopathic structural exam other than those noted in the History and Physical/Consult. Vitals: Vital Signs Temp Pulse Resp BP Pulse Ox FiO2 02/22/22 06:03 98.4 F 02/22/22 06:00 134 H 16 117/86 100 02/22/22 05:07 121 H 18 104/75 100 02/22/22 04:29 130 H 02/22/22 04:12 133 H 02/22/22 02:40 116 H 104/81 02/22/22 02:30 118 H 118/86 02/22/22 02:20 117 H 118/86 02/22/22 02:10 131 H 29 H 100/75 02/22/22 02:00 113 H 26 H 109/83 02/22/22 01:50 115 H 26 H 109/83 02/22/22 01:40 124 H 19 101/78 02/22/22 01:30 118 H 23 92/70 02/22/22 01:20 116 H 27 H 92/70 02/22/22 01:10 122 H 31 H 103/79 02/22/22 01:00 125 H 20 116/87 02/22/22 00:50 124 H 28 H 116/87 63 L 02/22/22 00:40 121 H 28 H 105/80 02/22/22 00:30 126 H 27 H 119/87 02/22/22 00:28 99.4 F 02/22/22 00:20 125 H 26 H 119/87 69 L 02/22/22 00:19 125 H 02/22/22 00:10 141 H 26 H 113/82 02/22/22 00:09 60 02/22/22 00:08 130 H 60 02/22/22 00:00 122 H 25 H 116/87 02/21/22 23:50 123 H 27 H 116/87 02/21/22 23:40 137 H 14 100/79 02/21/22 23:30 120 H 29 H 99/78 02/21/22 23:20 125 H 19 99/78 02/21/22 23:10 116 H 26 H 93/72 02/21/22 23:00 117 H 14 101/82 02/21/22 22:50 121 H 28 H 101/82 02/21/22 22:40 121 H 29 H 104/81 02/21/22 22:30 122 H 27 H 93/69 02/21/22 22:20 123 H 28 H 93/69 02/21/22 22:10 121 H 28 H 91/68 50 L 02/21/22 22:00 122 H 13 97/86 87 L 02/21/22 21:50 124 H 0 L 97/86 75 L 02/21/22 21:40 126 H 10 L 93/68 70 L 02/21/22 21:30 124 H 11 L 99/66 70 L 02/21/22 21:20 126 H 4 L 99/66 64 L 02/21/22 21:13 130 H 30 H 99/80 02/21/22 21:10 129 H 18 99/80 02/21/22 21:00 128 H 24 94/61 02/21/22 20:50 128 H 28 H 86/72 02/21/22 20:40 125 H 28 H 91/68 02/21/22 20:30 124 H 31 H 106/73 02/21/22 20:20 123 H 38 H 106/73 02/21/22 20:10 121 H 39 H 98/79 02/21/22 20:02 123 H 02/21/22 20:01 60 02/21/22 20:00 123 H 32 H 114/81 02/21/22 19:59 97.3 F L 123 H 28 H 114/81 95 02/21/22 19:52 60 02/21/22 19:50 124 H 24 114/81 02/21/22 19:49 123 H 27 H 114/81 02/21/22 19:35 97.7 F 125 H 24 120/90 02/21/22 18:00 123 H 22 112/87 100 02/21/22 17:30 120 H 20 115/89 100 02/21/22 15:33 97.5 F L 108 H 26 H 113/84 94 L Intake and Output 02/21/22 02/22/22 02/22/22 22:59 06:59 14:59 Other: Weight 58.967 kg No acute distress, oriented, currently on nasal O2, and still a bit lethargic. He does arouse and answers questions. HEENT examination is grossly unremarkable. Neck supple. Full range of motion. No adenopathy thyromegaly or neck vein distention. Cardiovascular examination reveals regular rhythm rate. S1-S2 normal. No S3 or S4. No discernible murmur noted. Heart rate 130 bpm. Lungs reveal mostly clear breath sounds. Scattered rhonchi noted. No wheezes. No crackles. 6 L saturation is 100%. That can be titrated down. Abdomen soft bowel sounds are heard. No masses or tenderness. Extremities are intact. No cyanosis clubbing or edema. Skin reveals scaly patches on the bottom of the patient's feet. Neurologic examination reveals the patient to be quite lethargic, but does arouse. Results - Laboratory Findings CBC and BMP: 02/22/22 07:10 02/21/22 15:47 ABG ABG pH 7.26 (7.35-7.45) L 02/21/22 21:30 ABG pCO2 47 mmHg (35-45) H 02/21/22 21:30 ABG pO2 71 mmHg (83-108) L 02/21/22 21:30 ABG O2 Saturation 92.2 % (94-97) L 02/21/22 21:30 PT/INR, D-dimer PT 9.6 sec (9.0-12.0) 02/21/22 15:47 INR 0.9 (<1.2) 02/21/22 15:47 Abnormal lab findings: Abnormal Labs 02/21/22 02/21/22 02/21/22 15:36 15:47 15:47 WBC 18.6 H RBC 4.28 L Plt Count 471 H Neutrophils # 13.6 H Monocytes # ABG pH ABG pCO2 ABG pO2 ABG Total CO2 ABG O2 Saturation Sodium 124 L Chloride 96 L Carbon Dioxide 19 L BUN 6 L Glucose 261 H POC Glucose (mg/dL) 266 H Plasma Lactic Acid Graham Calcium 8.1 L Alkaline Phosphatase 162 H Albumin 2.9 L Urine Protein Urine Glucose (UA) Urine Ketones Ur Leukocyte Esterase Urine WBC Urine Bacteria Hyaline Casts Urine Mucus U Benzodiazepines Scrn U Marijuana (THC) Screen 02/21/22 02/21/22 02/21/22 15:47 19:22 21:30 WBC RBC Plt Count Neutrophils # Monocytes # ABG pH 7.12 L* 7.26 L ABG pCO2 71 H* 47 H ABG pO2 163 H 71 L ABG Total CO2 25 H ABG O2 Saturation 98.6 H 92.2 L Sodium Chloride Carbon Dioxide BUN Glucose POC Glucose (mg/dL) Plasma Lactic Acid Graham 7.9 H* Calcium Alkaline Phosphatase Albumin Urine Protein Urine Glucose (UA) Urine Ketones Ur Leukocyte Esterase Urine WBC Urine Bacteria Hyaline Casts Urine Mucus U Benzodiazepines Scrn U Marijuana (THC) Screen 02/22/22 02/22/22 04:37 07:10 WBC 26.4 H RBC Plt Count Neutrophils # 23.9 H Monocytes # 1.1 H ABG pH ABG pCO2 ABG pO2 ABG Total CO2 ABG O2 Saturation Sodium Chloride Carbon Dioxide BUN Glucose POC Glucose (mg/dL) Plasma Lactic Acid Graham Calcium Alkaline Phosphatase Albumin Urine Protein Trace H Urine Glucose (UA) Trace H Urine Ketones Trace H Ur Leukocyte Esterase Small H Urine WBC 21 H Urine Bacteria Rare H Hyaline Casts 3 H Urine Mucus Few H U Benzodiazepines Scrn Detected H U Marijuana (THC) Screen Detected H - Diagnostic Findings Chest x-ray: image reviewed Assessment and Plan Assessment: Recurrent seizure activity, and the patient noncompliant with epilepsy medi cations. Possible aspiration pneumonia, left lung. History of chronic tobacco use and nicotine dependence. History of hypertension. History of chronic alcohol abuse. History of marijuana use. Chronic wounds, lower extremities. Plan: Plan dated 02/22/2022. The patient is seen in the emergency room, trauma room #4. He is evaluated there. Saturation is 100%. His oxygen requirements can be titrated down. The patient is much more awake. He did use BiPAP until about 3:00 in the morning. His current vital signs are stable other than his sinus tachycardia. Labs, x- rays, medications are all reviewed. The patient was given cefepime and vancomycin in the emergency department. The patient will be started on Zosyn. I will discontinue the corticosteroids. Neurology should see this patient. Prognosis is guarded. Time with Patient: Greater than 30
[2022-02-22 07:57] LABS: African American GFR (CKD) >90 (>60 ml/min/1.73 sqM); Anion Gap 11 mmol/L; Blood Urea Nitrogen 6 mg/dL (9-20); Calcium 7.8 mg/dL (8.4-10.2); Carbon Dioxide 15 mmol/L (22-30); Chloride 105 mmol/L (98-107); Glucose 166 mg/dL (74-99); Non-African American GFR(CKD) >90 (>60 ml/min/1.73 sqM); Sodium 131 mmol/L (137-145)
[2022-02-22 07:58] LABS: Potassium 5.3 mmol/L (3.5-5.1)
[2022-02-22] MEDS: levETIRAcetam IV 1,000 MG in SALINE 1 100ML.BAG IVPB SCH ×2 (08:35→21:35)
[2022-02-22] MEDS: PIPERACILLIN-TAZOBACTAM 3.375 GM in SODIUM CHLORIDE 0.9% 100 ML IVPB SCH ×3 (08:38→23:35)
[2022-02-22] MEDS: THIAMINE 100 MG TAB PO SCH (08:40)
--- NOTE | 2022-02-22 15:38 | P.CNNES ---
History of Present Illness Consult date: 02/22/22 Requesting physician: Jassi Nolasco Reason for Consult: prolonged postictal state following seizure History of Present Illness: Patient is a 61-year-old male with past medical history remarkable for alcohol abuse, chronic foot wounds, seizure disorder, but not compliant with neurology follow-ups, on antiepileptic medications came to the hospital by ambulance yesterday at 3:32 PM. As per EMS flow sheet, they were called by friends/family due to seizure this afternoon. It was a witnessed full-body seizure lasting 1 minute. Patient was unresponsive laying supine on a bed. Patient's eyes were open and gaze to the left during pupil assessment. Pupils are equal. Patient was making uncomprehending noises and does not regain consciousness before having another full-body tonic-clonic seizure lasting 45 seconds to 1 minute. Patient was cyanotic in his face and upper torso with mottled appearance. Patient had a third seizure lasting 2-3 minutes. Patient was given Versed 5 mg IV push via a left external jugular vein. Patient was started on nonrebreather. Blood pressure was 160/100, pulse rate 90, respiration 26, blood glucose 268. On arrival blood pressure was 113/84, pulse rate 108, temperature 97.5.. Blood test shows the BBC 18.6 hemoglobin 13.1 and platelets 471. PT/PTT normal, sodium 124 potassium 4.9, normal renal functions. Hepatic panel normal, plasma lactate 7.9. Blood alcohol level less than 10. Influenza screen, RSV and schroeder virus test negative. ABG shows pH of 7.12, pCO2 71, pO2 163. Most recent sodium is 131 potassium 5.3. UA negative. Urine drug screen positive for benzodiazepine and marijuana. Patient subsequently did not have any more seizures in the ER. CT head showed no acute process. Nonspecific white matter changes likely secondary to chronic small vessel ischemic disease. CT of the cervical spine showed no evidence of cervical spine fracture. Mild COPD. Foot x-ray was negative for any fracture. No evidence of osteomyelitis. Multifocal osteoarth rosis changes. Chest x-ray showed multifocal airspace opacities most pronounced on the left hilar region. EKG shows sinus tachycardia. Right bundle-branch block. Patient's home medications include metoprolol, lisinopril, clonidine. Patient not on any antiepileptic medication. Patient was given a loading dose of Keppra of 2000 mg, followed by 1000 mg IV twice a day. Patient at this time tells me that he drinks 1-2 beers every night before going to sleep. He has significantly cut back on alcoholism 8 months ago after he started having feet issues, that has been going on for past 1 year. He denies drinking excessively around [facility]. He admits to smoking since he was age 16. He has smoked 1 pack per day for about 30+ years. Patient says that he does take Klonopin 0.5 mg tablet, 2 in the morning and 1 at night regularly, denies running out of Klonopin. He smokes marijuana. He states that he has been having seizures for the last 1 year. Patient was seen by Dr. Chin Rayo on 06/08/2021 for seizures, which was felt to be alcohol related. Patient was placed on Keppra in the hospital, but discontinued at the time of discharge, as seizures were felt to be alcohol withdrawal related. Review of Systems Due to postictal state. ROS unobtainable: due to mental status Constitutional: Denies chills, Denies fever Eyes: denies blurred vision, denies pain Ears, nose, mouth and throat: Denies headache, Denies sore throat Cardiovascular: Reports shortness of breath, Denies chest pain Respiratory: Reports congestion, Reports cough Gastrointestinal: Denies abdominal pain, Denies diarrhea, Denies nausea, Denies vomiting Musculoskeletal: Denies myalgias Integumentary: Reports dryness, Reports foot/leg ulcers, Reports rash, Reports wounds Neurological: Denies numbness, Denies weakness Endocrine: Denies fatigue, Denies weight change Past Medical History Past Medical History: Seizure Disorder History of Any Multi-Drug Resistant Organisms: None Reported Additional Past Surgical History / Comment(s): Right leg fracture repair Past Psychological History: No Psychological Hx Reported Smoking Status: Current every day smoker Past Alcohol Use History: None Reported, Daily Past Drug Use History: None Reported - Past Family History Mother Family Medical History: Coronary Artery Disease (CAD) Medications and Allergies Home Medications Medication Instructions Recorded Confirmed Type Metoprolol Tartrate [Lopressor] 100 mg PO BID tab 06/14/21 02/21/22 Rx Hydrocortisone Cream 1 applic TOPICAL BID PRN 12/08/21 02/21/22 History [Hydrocortisone 1% Cream] cloNIDine HCL [Catapres] 0.1 mg PO HS 10/13/22 12/27/22 History cloNIDine HCL [Catapres] 0.2 mg PO DAILY 12/08/21 02/21/22 History lisinopriL [Prinivil] 10 mg PO DAILY 12/08/21 02/21/22 History Triamcinolone 0.1% Cream [Kenalog 1 applic TOPICAL DAILY 02/21/22 02/21/22 History 0.1% Cream] Allergies Allergy/AdvReac Type Severity Reaction Status Date / Time No Known Allergies Allergy Verified 02/21/22 16:09 Physical Examination - Vital Signs Vital Signs: Vital Signs Temp Pulse Resp BP Pulse Ox FiO2 02/22/22 09:58 133 H 18 126/90 99 02/22/22 09:00 126 H 02/22/22 08:44 130 H 02/22/22 08:23 98.9 F 135 H 16 111/89 02/22/22 06:03 98.4 F 02/22/22 06:00 134 H 16 117/86 100 02/22/22 05:07 121 H 18 104/75 100 02/22/22 04:29 130 H 02/22/22 04:12 133 H 02/22/22 02:40 116 H 104/81 02/22/22 02:30 118 H 118/86 02/22/22 02:20 117 H 118/86 02/22/22 02:10 131 H 29 H 100/75 02/22/22 02:00 113 H 26 H 109/83 02/22/22 01:50 115 H 26 H 109/83 02/22/22 01:40 124 H 19 101/78 02/22/22 01:30 118 H 23 92/70 02/22/22 01:20 116 H 27 H 92/70 02/22/22 01:10 122 H 31 H 103/79 02/22/22 01:00 125 H 20 116/87 02/22/22 00:50 124 H 28 H 116/87 63 L 02/22/22 00:40 121 H 28 H 105/80 02/22/22 00:30 126 H 27 H 119/87 02/22/22 00:28 99.4 F 02/22/22 00:20 125 H 26 H 119/87 69 L 02/22/22 00:19 125 H 02/22/22 00:10 141 H 26 H 113/82 02/22/22 00:09 60 02/22/22 00:08 130 H 60 02/22/22 00:00 122 H 25 H 116/87 02/21/22 23:50 123 H 27 H 116/87 02/21/22 23:40 137 H 14 100/79 02/21/22 23:30 120 H 29 H 99/78 02/21/22 23:20 125 H 19 99/78 02/21/22 23:10 116 H 26 H 93/72 02/21/22 23:00 117 H 14 101/82 02/21/22 22:50 121 H 28 H 101/82 02/21/22 22:40 121 H 29 H 104/81 02/21/22 22:30 122 H 27 H 93/69 02/21/22 22:20 123 H 28 H 93/69 02/21/22 22:10 121 H 28 H 91/68 50 L 02/21/22 22:00 122 H 13 97/86 87 L 02/21/22 21:50 124 H 0 L 97/86 75 L 02/21/22 21:40 126 H 10 L 93/68 70 L 02/21/22 21:30 124 H 11 L 99/66 70 L 02/21/22 21:20 126 H 4 L 99/66 64 L 02/21/22 21:13 130 H 30 H 99/80 02/21/22 21:10 129 H 18 99/80 02/21/22 21:00 128 H 24 94/61 02/21/22 20:50 128 H 28 H 86/72 02/21/22 20:40 125 H 28 H 91/68 02/21/22 20:30 124 H 31 H 106/73 02/21/22 20:20 123 H 38 H 106/73 02/21/22 20:10 121 H 39 H 98/79 02/21/22 20:02 123 H 02/21/22 20:01 60 02/21/22 20:00 123 H 32 H 114/81 02/21/22 19:59 97.3 F L 123 H 28 H 114/81 95 02/21/22 19:52 60 02/21/22 19:50 124 H 24 114/81 12/27/22 19:49 123 H 27 H 114/81 02/21/22 19:35 97.7 F 125 H 24 120/90 02/21/22 18:00 123 H 22 112/87 100 02/21/22 17:30 120 H 20 115/89 100 02/21/22 15:33 97.5 F L 108 H 26 H 113/84 94 L Intake and Output 02/21/22 02/22/22 02/22/22 22:59 06:59 14:59 Other: Weight 58.967 kg Patient is a late middle aged male, who appears older than his stated age. He is somewhat disheveled. Patient was initially postictal, somnolent, but then woke up and was able to provide history as above. He became then somewhat restless, tried to pull all the leads. Patient knows it is January and states the year is 1921. He knows he is in [facility]. Speech and language functions are normal. Patient can name and repeat very well. No aphasia or dysarthria. Patient's voice is hoarse. Attention, concentration and fund of knowledge is slightly limited due to postictal state. On cranial nerve examination, pupils are equal, round and reacting to light, visual wang are full on confrontation, with no neglect on double simultaneous stimulation. Extraocular muscles are intact with no nystagmus. Face is symmetric, tongue protrudes to the midline. Palatal elevation and sensation normal, hearing is slightly decreased and shoulder shrug normal, facial sensation normal. On muscle strength testing, there is no pronator drift and the strength is normal in arms and legs distally and proximally, except both deltoids which are weak from some previous issues. Deep tendon reflexes are symmetric 1+ to 2. Plantars were not checked because of significant rash on the soles bilaterally. Sensory to touch is equal with no neglect on double simultaneous stimulation. Cerebellar function showed no ataxia for [id number] testing. No dysdiadochokinesia. Tone and bulk of muscles normal. Gait deferred.. On general examination, there is no carotid bruit or murmur, S1-S2 audible. Chest is clear on consultation. Abdomen is soft nontender. No organomegaly, bowel sounds present. Peripheral edema. Some skin changes in the feet particularly in the bottom of the feet. Results - Laboratory Findings CBC and BMP: 02/22/22 07:10 02/22/22 07:10 Abnormal Lab Findings: Abnormal Labs 02/21/22 02/21/22 02/21/22 15:36 15:47 15:47 WBC 18.6 H RBC 4.28 L Plt Count 471 H Neutrophils # 13.6 H Monocytes # ABG pH ABG pCO2 ABG pO2 ABG Total CO2 ABG O2 Saturation Sodium 124 L Potassium Chloride 96 L Carbon Dioxide 19 L BUN 6 L Creatinine Glucose 261 H POC Glucose (mg/dL) 266 H Plasma Lactic Acid Graham Calcium 8.1 L Alkaline Phosphatase 162 H Albumin 2.9 L Urine Protein Urine Glucose (UA) Urine Ketones Ur Leukocyte Esterase Urine WBC Urine Bacteria Hyaline Casts Urine Mucus U Benzodiazepines Scrn U Marijuana (THC) Screen 02/21/22 02/21/22 02/21/22 15:47 19:22 21:30 WBC RBC Plt Count Neutrophils # Monocytes # ABG pH 7.12 L* 7.26 L ABG pCO2 71 H* 47 H ABG pO2 163 H 71 L ABG Total CO2 25 H ABG O2 Saturation 98.6 H 92.2 L Sodium Potassium Chloride Carbon Dioxide BUN Creatinine Glucose POC Glucose (mg/dL) Plasma Lactic Acid Graham 7.9 H* Calcium Alkaline Phosphatase Albumin Urine Protein Urine Glucose (UA) Urine Ketones Ur Leukocyte Esterase Urine WBC Urine Bacteria Hyaline Casts Urine Mucus U Benzodiazepines Scrn U Marijuana (THC) Screen 02/22/22 02/22/22 02/22/22 04:37 07:10 07:10 WBC 26.4 H RBC Plt Count Neutrophils # 23.9 H Monocytes # 1.1 H ABG pH ABG pCO2 ABG pO2 ABG Total CO2 ABG O2 Saturation Sodium 131 L Potassium 5.3 H Chloride Carbon Dioxide 15 L BUN 6 L Creatinine 0.52 L Glucose 166 H POC Glucose (mg/dL) Plasma Lactic Acid Graham Calcium 7.8 L Alkaline Phosphatase Albumin Urine Protein Trace H Urine Glucose (UA) Trace H Urine Ketones Trace H Ur Leukocyte Esterase Small H Urine WBC 21 H Urine Bacteria Rare H Hyaline Casts 3 H Urine Mucus Few H U Benzodiazepines Scrn Detected H U Marijuana (THC) Screen Detected H Assessment and Plan Assessment: * Seizure disorder, came with recurrent seizures (3). Seizures aborted with Versed 5 mg IV push. * History of alcoholism. Patient at present denies any regular alcoholism. He states that he just drinks 1-2 beers per night. Patient also takes Klonopin, denies running out of it. No obvious cause/provoking factor identified. * Pneumonia * Feet ulcers * Tobacco use * Marijuana use * Coronary artery disease Plan: * Agree with starting Keppra. Patient has received a loading dose of Keppra 2000 mg in the ER, and will be maintained on Keppra 1000 mg twice a day. * EEG ordered. We will review. * MRI of the brain rule out secondary causes of seizure. * No driving, climbing ladders, operating dangerous machineries or swimming. * Recommended abstinence from alcoholism, marijuana and tobacco use. * Neurology will follow. Thank you for the consult.
--- NOTE | 2022-02-22 21:39 | EEG ---
ELECTROENCEPHALOGRAM REPORT PREAMBLE: This is a 61-year-old male with a recent onset of new-onset seizure. EEG FINDINGS: This is a 21-channel digital EEG recorded with video component, utilizing 10/[employer] System with referential and bipolar montages. Background consists of somewhat suppressed and diffusely low-amplitude theta and delta slowing, with some superimposed fast frequency beta activity. Frequent sleep spindles were seen. Intermittent right frontotemporal low-amplitude sharp-appearing waves were seen. No electrographic seizure was recorded. Photic stimulation was not done. EKG channel showed tachycardia. IMPRESSION: This is an abnormal EEG due to presence of possible low-amplitude sharp-appearing waves in the right frontotemporal region. This may suggest underlying cortical irritability and tendency for seizures. No electrographic seizure was recorded. MMODL / IJN: [id number] /
--- NOTE | 2022-02-22 22:59 | P.CONS ---
History of Present Illness - Reason for Consult Consult date: 02/22/22 Pneumonia Requesting physician: Jassi Nolasco - Chief Complaint Seizure x one day - History of Present Illness Patient is a 61-year-old male with a past medical history significant for chronic on both abuse seizure disorder noncompliant with his seizure medica tion patient was brought into the ER with acute onset of seizure apparently happened earlier yesterday morning and did have 3 different seizure episode on arrival of EMS patient was actively seizing patient was stabilized and subsequently has been brought to [facility] ER on arrival to the ER patient was afebrile and no fever has been recorded subsequently patient noticed to have elevated white count of 18.6 which is up to 26.4 today creatinine has been normal lactic acid was elevated 11s of the normal urine was mildly positive for ureteral screen was positive for benzos and marijuana COVID influenza and RSV PCR was negative patient did have a chest x-ray multifocal airspace opacity more pronounced left hilar region with concern for possible aspiration pneumonia patient was started on Zosyn admitted to hospital infectious disease was consulted for further management of antibiotic therapy most with information has been obtained from review the chart as the patient did not provide any history Review of Systems Positive points has been mentioned in HPI complete review could not be obtained because of his underlying mental status Past Medical History Past Medical History: Seizure Disorder History of Any Multi-Drug Resistant Organisms: None Reported Additional Past Surgical History / Comment(s): Right leg fracture repair Past Psychological History: No Psychological Hx Reported Smoking Status: Current every day smoker Past Alcohol Use History: None Reported, Daily Past Drug Use History: None Reported - Past Family History Mother Family Medical History: Coronary Artery Disease (CAD) Medications and Allergies Home Medications Medication Instructions Recorded Confirmed Type Metoprolol Tartrate [Lopressor] 100 mg PO BID tab 06/14/21 02/21/22 Rx Hydrocortisone Cream 1 applic TOPICAL BID PRN 12/08/21 02/21/22 History [Hydrocortisone 1% Cream] cloNIDine HCL [Catapres] 0.1 mg PO HS 12/08/21 02/21/22 History cloNIDine HCL [Catapres] 0.2 mg PO DAILY 12/08/21 02/21/22 History lisinopriL [Prinivil] 10 mg PO DAILY 12/08/21 02/21/22 History Triamcinolone 0.1% Cream [Kenalog 1 applic TOPICAL DAILY 02/21/22 02/21/22 History 0.1% Cream] Allergies Allergy/AdvReac Type Severity Reaction Status Date / Time No Known Allergies Allergy Verified 02/21/22 16:09 Physical Exam Vitals: Vital Signs Temp Pulse Resp BP Pulse Ox FiO2 02/22/22 09:58 133 H 18 126/90 99 02/22/22 09:00 126 H 02/22/22 08:44 130 H 02/22/22 08:23 98.9 F 135 H 16 111/89 02/22/22 06:03 98.4 F 02/22/22 06:00 134 H 16 117/86 100 02/22/22 05:07 121 H 18 104/75 100 02/22/22 04:29 130 H 02/22/22 04:12 133 H 02/22/22 02:40 116 H 104/81 02/22/22 02:30 118 H 118/86 02/22/22 02:20 117 H 118/86 02/22/22 02:10 131 H 29 H 100/75 02/22/22 02:00 113 H 26 H 109/83 02/22/22 01:50 115 H 26 H 109/83 02/22/22 01:40 124 H 19 101/78 02/22/22 01:30 118 H 23 92/70 02/22/22 01:20 116 H 27 H 92/70 02/22/22 01:10 122 H 31 H 103/79 02/22/22 01:00 125 H 20 116/87 02/22/22 00:50 124 H 28 H 116/87 63 L 02/22/22 00:40 121 H 28 H 105/80 02/22/22 00:30 126 H 27 H 119/87 02/22/22 00:28 99.4 F 02/22/22 00:20 125 H 26 H 119/87 69 L 02/22/22 00:19 125 H 02/22/22 00:10 141 H 26 H 113/82 02/22/22 00:09 60 02/22/22 00:08 130 H 60 02/22/22 00:00 122 H 25 H 116/87 02/21/22 23:50 123 H 27 H 116/87 02/21/22 23:40 137 H 14 100/79 02/21/22 23:30 120 H 29 H 99/78 02/21/22 23:20 125 H 19 99/78 02/21/22 23:10 116 H 26 H 93/72 02/21/22 23:00 117 H 14 101/82 02/21/22 22:50 121 H 28 H 101/82 02/21/22 22:40 121 H 29 H 104/81 02/21/22 22:30 122 H 27 H 93/69 02/21/22 22:20 123 H 28 H 93/69 02/21/22 22:10 121 H 28 H 91/68 50 L 02/21/22 22:00 122 H 13 97/86 87 L 02/21/22 21:50 124 H 0 L 97/86 75 L 02/21/22 21:40 126 H 10 L 93/68 70 L 02/21/22 21:30 124 H 11 L 99/66 70 L 02/21/22 21:20 126 H 4 L 99/66 64 L 02/21/22 21:13 130 H 30 H 99/80 02/21/22 21:10 129 H 18 99/80 02/21/22 21:00 128 H 24 94/61 02/21/22 20:50 128 H 28 H 86/72 02/21/22 20:40 125 H 28 H 91/68 02/21/22 20:30 124 H 31 H 106/73 02/21/22 20:20 123 H 38 H 106/73 02/21/22 20:10 121 H 39 H 98/79 02/21/22 20:02 123 H 02/21/22 20:01 60 02/21/22 20:00 123 H 32 H 114/81 02/21/22 19:59 97.3 F L 123 H 28 H 114/81 95 02/21/22 19:52 60 02/21/22 19:50 124 H 24 114/81 02/21/22 19:49 123 H 27 H 114/81 02/21/22 19:35 97.7 F 125 H 24 120/90 02/21/22 18:00 123 H 22 112/87 100 02/21/22 17:30 120 H 20 115/89 100 02/21/22 15:33 97.5 F L 108 H 26 H 113/84 94 L Intake and Output 02/21/22 02/22/22 02/22/22 22:59 06:59 14:59 Other: Weight 58.967 kg GENERAL DESCRIPTION: Middle-aged male lying in bed, no distress. No tachypnea or accessory muscle of respiration use. HEENT: Shows Pallor , no scleral icterus. Oral mucous membrane is dry. No pharyngeal erythema or thrush NECK: Trachea central, no thyromegaly. LUNGS: Unlabored breathing. Coarse basilar sounds bilaterally HEART: S1, S2, regular rate and rhythm. No loud murmur ABDOMEN: Soft, no tenderness , guarding or rigidity, no organomegaly EXTREMITIES: No edema of feet. Did have a dry scaly palm of his feet bilaterally SKIN: No rash, no masses palpable. NEUROLOGICAL: The patient is lethargic orientation could not be determined Results CBC & Chem 7: 02/24/22 06:46 02/24/22 06:46 Labs: Abnormal Lab Results - Last 24 Hours (Table) 02/21/22 02/21/22 02/21/22 Range/Units 15:36 15:47 15:47 WBC 18.6 H (3.8-10.6) k/uL RBC 4.28 L (4.30-5.90) m/uL Plt Count 471 H (150-450) k/uL Neutrophils # 13.6 H (1.3-7.7) k/uL Monocytes # (0-1.0) k/uL ABG pH (7.35-7.45) ABG pCO2 (35-45) mmHg ABG pO2 (83-108) mmHg ABG Total CO2 (19-24) mmol/L ABG O2 Saturation (94-97) % Sodium 124 L (137-145) mmol/L Potassium (3.5-5.1) mmol/L Chloride 96 L (98-107) mmol/L Carbon Dioxide 19 L (22-30) mmol/L BUN 6 L (9-20) mg/dL Creatinine (0.66-1.25) mg/dL Glucose 261 H (74-99) mg/dL POC Glucose (mg/dL) 266 H (70-110) mg/dL Plasma Lactic Acid Graham (0.7-2.0) mmol/L Calcium 8.1 L (8.4-10.2) mg/dL Alkaline Phosphatase 162 H (38-126) U/L Albumin 2.9 L (3.5-5.0) g/dL Urine Protein (Negative) Urine Glucose (UA) (Negative) Urine Ketones (Negative) Ur Leukocyte Esterase (Negative) Urine WBC (0-5) /hpf Urine Bacteria (None) /hpf Hyaline Casts (0-2) /lpf Urine Mucus (None) /hpf U Benzodiazepines Scrn (NotDetected) U Marijuana (THC) Screen (NotDetected) 02/21/22 02/21/22 02/21/22 Range/Units 15:47 19:22 21:30 WBC (3.8-10.6) k/uL RBC (4.30-5.90) m/uL Plt Count (150-450) k/uL Neutrophils # (1.3-7.7) k/uL Monocytes # (0-1.0) k/uL ABG pH 7.12 L* 7.26 L (7.35-7.45) ABG pCO2 71 H* 47 H (35-45) mmHg ABG pO2 163 H 71 L (83-108) mmHg ABG Total CO2 25 H (19-24) mmol/L ABG O2 Saturation 98.6 H 92.2 L (94-97) % Sodium (137-145) mmol/L Potassium (3.5-5.1) mmol/L Chloride (98-107) mmol/L Carbon Dioxide (22-30) mmol/L BUN (9-20) mg/dL Creatinine (0.66-1.25) mg/dL Glucose (74-99) mg/dL POC Glucose (mg/dL) (70-110) mg/dL Plasma Lactic Acid Graham 7.9 H* (0.7-2.0) mmol/L Calcium (8.4-10.2) mg/dL Alkaline Phosphatase (38-126) U/L Albumin (3.5-5.0) g/dL Urine Protein (Negative) Urine Glucose (UA) (Negative) Urine Ketones (Negative) Ur Leukocyte Esterase (Negative) Urine WBC (0-5) /hpf Urine Bacteria (None) /hpf Hyaline Casts (0-2) /lpf Urine Mucus (None) /hpf U Benzodiazepines Scrn (NotDetected) U Marijuana (THC) Screen (NotDetected) 02/22/22 02/22/22 02/22/22 Range/Units 04:37 07:10 07:10 WBC 26.4 H (3.8-10.6) k/uL RBC (4.30-5.90) m/uL Plt Count (150-450) k/uL Neutrophils # 23.9 H (1.3-7.7) k/uL Monocytes # 1.1 H (0-1.0) k/uL ABG pH (7.35-7.45) ABG pCO2 (35-45) mmHg ABG pO2 (83-108) mmHg ABG Total CO2 (19-24) mmol/L ABG O2 Saturation (94-97) % Sodium 131 L (137-145) mmol/L Potassium 5.3 H (3.5-5.1) mmol/L Chloride (98-107) mmol/L Carbon Dioxide 15 L (22-30) mmol/L BUN 6 L (9-20) mg/dL Creatinine 0.52 L (0.66-1.25) mg/dL Glucose 166 H (74-99) mg/dL POC Glucose (mg/dL) (70-110) mg/dL Plasma Lactic Acid Graham (0.7-2.0) mmol/L Calcium 7.8 L (8.4-10.2) mg/dL Alkaline Phosphatase (38-126) U/L Albumin (3.5-5.0) g/dL Urine Protein Trace H (Negative) Urine Glucose (UA) Trace H (Negative) Urine Ketones Trace H (Negative) Ur Leukocyte Esterase Small H (Negative) Urine WBC 21 H (0-5) /hpf Urine Bacteria Rare H (None) /hpf Hyaline Casts 3 H (0-2) /lpf Urine Mucus Few H (None) /hpf U Benzodiazepines Scrn Detected H (NotDetected) U Marijuana (THC) Screen Detected H (NotDetected) Microbiology - Last 24 Hours (Table) 02/22/22 04:37 Urine Culture - Preliminary Urine,Voided Assessment and Plan (1) Pneumonia Current Visit: Yes Status: Acute Code(s): J18.9 - PNEUMONIA, UNSPECIFIED ORGANISM SNOMED Code(s): 383628106 Plan: 1patient presented to hospital with active seizures in this patient now with evidence of multifocal pneumonia mostly left perihilar region did have elevated vital concerning for pneumonia of aspiration etiology. 2positive blood culture finalized as staph epi likely skin contamination. 3we will obtain a CRP procalcitonin and sputum for gram stain and culture. 4patient to continue with Zosyn 3.375 g every 8 hours and no need for vancomycin. We will follow on clinical condition and cultures to further adjust medication if needed Thank you for this consultation will follow this patient along with you Time with Patient: Greater than 30
--- NOTE | 2022-02-23 00:20 | P.HPIM ---
History of Present Illness H&P Date: 02/22/22 Chief Complaint: Seizures Patient is a 61-year-old male with a known history of seizure disorder, currently with a smoker and current alcohol abuse and currently not on any an tiepileptic drugs was brought to ER by ambulance due to seizures.. Patient was also having chronic foot wounds and is on follow-up with wound care center. Patient is also noncompliant with follow-up and medications. Apparently patient had 3 episodes of seizures within an hour and has been acting differently. Patient's parents called EMS. Upon arrival to the ER patient was having leftward gaze deviation and was actively seizing. Patient was given 5 mg of IV Versed and seizure stopped. Patient was postictal. Patient is still drowsy and lethargic and unable to provide history. CT head and cervical spine showed no acute intracranial process. Nonspecific white matter changes likely secondary to chronic small vessel ischemic disease. No evidence of cervical spine fracture. Mild COPD changes with intralobular septal thickening and patchy groundglass opacities within the bilateral upper lobes concerning for infectious/infectious inflammatory process. Chest x-ray showed multifocal airspace opacities most pronounced on the left hilar region. Findings concerning for pneumonia. Foot x-ray showed no evidence of acute fracture. No osteomyelitis. Multifocal osteoarthrosis changes. EKG showed sinus tachycardia. Laboratory data showed WBC 18.6 hemoglobin 13.1 and lipase 471 2124 potassium 4.9 chloride 96 bicarb is 19 BUN 16 creatinine 0.66 and blood sugar is 2631 lactic acid 7.9 and albumin 2.9 serum alcohol level is less than 10 and influenza AB and RSV PCR and COVID-19 not detected. Patient is currently ER and requiring oxygen at 6 L via nasal cannula. Review of Systems Review of systems could not be obtained from the patient ROS unobtainable: due to mental status Past Medical History Past Medical History: Seizure Disorder History of Any Multi-Drug Resistant Organisms: None Reported Additional Past Surgical History / Comment(s): Right leg fracture repair Past Psychological History: No Psychological Hx Reported Smoking Status: Current every day smoker Past Alcohol Use History: None Reported, Daily Past Drug Use History: None Reported - Past Family History Mother Family Medical History: Coronary Artery Disease (CAD) Medications and Allergies Home Medications Medication Instructions Recorded Confirmed Type Metoprolol Tartrate [Lopressor] 100 mg PO BID tab 06/14/21 02/21/22 Rx Hydrocortisone Cream 1 applic TOPICAL BID PRN 12/08/21 02/21/22 History [Hydrocortisone 1% Cream] cloNIDine HCL [Catapres] 0.1 mg PO HS 12/08/21 02/21/22 History cloNIDine HCL [Catapres] 0.2 mg PO DAILY 12/08/21 02/21/22 History lisinopriL [Prinivil] 10 mg PO DAILY 12/08/21 02/21/22 History Triamcinolone 0.1% Cream [Kenalog 1 applic TOPICAL DAILY 02/21/22 02/21/22 History 0.1% Cream] Allergies Allergy/AdvReac Type Severity Reaction Status Date / Time No Known Allergies Allergy Verified 02/21/22 16:09 Physical Exam Vitals: Vital Signs Temp Pulse Resp BP Pulse Ox FiO2 02/22/22 09:58 133 H 18 126/90 99 02/22/22 09:00 126 H 02/22/22 08:44 130 H 02/22/22 08:23 98.9 F 135 H 16 111/89 02/22/22 06:03 98.4 F 02/22/22 06:00 134 H 16 117/86 100 02/22/22 05:07 121 H 18 104/75 100 02/22/22 04:29 130 H 02/22/22 04:12 133 H 02/22/22 02:40 116 H 104/81 02/22/22 02:30 118 H 118/86 02/22/22 02:20 117 H 118/86 02/22/22 02:10 131 H 29 H 100/75 02/22/22 02:00 113 H 26 H 109/83 02/22/22 01:50 115 H 26 H 109/83 02/22/22 01:40 124 H 19 101/78 02/22/22 01:30 118 H 23 92/70 02/22/22 01:20 116 H 27 H 92/70 02/22/22 01:10 122 H 31 H 103/79 02/22/22 01:00 125 H 20 116/87 02/22/22 00:50 124 H 28 H 116/87 63 L 02/22/22 00:40 121 H 28 H 105/80 02/22/22 00:30 126 H 27 H 119/87 02/22/22 00:28 99.4 F 02/22/22 00:20 125 H 26 H 119/87 69 L 02/22/22 00:19 125 H 02/22/22 00:10 141 H 26 H 113/82 02/22/22 00:09 60 02/22/22 00:08 130 H 60 02/22/22 00:00 122 H 25 H 116/87 02/21/22 23:50 123 H 27 H 116/87 02/21/22 23:40 137 H 14 100/79 02/21/22 23:30 120 H 29 H 99/78 02/21/22 23:20 125 H 19 99/78 02/21/22 23:10 116 H 26 H 93/72 02/21/22 23:00 117 H 14 101/82 02/21/22 22:50 121 H 28 H 101/82 02/21/22 22:40 121 H 29 H 104/81 02/21/22 22:30 122 H 27 H 93/69 02/21/22 22:20 123 H 28 H 93/69 02/21/22 22:10 121 H 28 H 91/68 50 L 02/21/22 22:00 122 H 13 97/86 87 L 02/21/22 21:50 124 H 0 L 97/86 75 L 02/21/22 21:40 126 H 10 L 93/68 70 L 02/21/22 21:30 124 H 11 L 99/66 70 L 02/21/22 21:20 126 H 4 L 99/66 64 L 02/21/22 21:13 130 H 30 H 99/80 02/21/22 21:10 129 H 18 99/80 02/21/22 21:00 128 H 24 94/61 02/21/22 20:50 128 H 28 H 86/72 02/21/22 20:40 125 H 28 H 91/68 02/21/22 20:30 124 H 31 H 106/73 02/21/22 20:20 123 H 38 H 106/73 02/21/22 20:10 121 H 39 H 98/79 02/21/22 20:02 123 H 02/21/22 20:01 60 02/21/22 20:00 123 H 32 H 114/81 02/21/22 19:59 97.3 F L 123 H 28 H 114/81 95 02/21/22 19:52 60 02/21/22 19:50 124 H 24 114/81 02/21/22 19:49 123 H 27 H 114/81 02/21/22 19:35 97.7 F 125 H 24 120/90 02/21/22 18:00 123 H 22 112/87 100 02/21/22 17:30 120 H 20 115/89 100 02/21/22 15:33 97.5 F L 108 H 26 H 113/84 94 L Intake and Output 02/21/22 02/22/22 02/22/22 22:59 06:59 14:59 Other: Weight 58.967 kg PHYSICAL EXAMINATION: Patient is lying in the bed. Awake alert but lethargic and weak. Requiring oxygen 6 L via nasal cannula. HEENT: Normocephalic. Neck is supple. Pupils reactive. Nostrils clear. Oral cavity is moist. Neck reveals no JVD, carotid bruits, or thyromegaly. CHEST EXAMINATION: Trachea is central. Symmetrical expansion. Bibasilar diminished sounds. Scattered crackles.. CARDIAC: Normal S1, S2 with no gallops. No murmurs ABDOMEN: Soft. Bowel sounds present. Nontender. No organomegaly. No abdominal bruits. Extremities: reveal no edema. Dry and scaly feet. No clubbing or cyanosis Neurologically awake, alert, oriented x1-2. No gross focal deficits noted Skin: No rash or skin lesions. Psychiatric: Coperative. Could not be assessed completely. Musculoskeletal: No joint swelling or deformity. Results CBC & Chem 7: 02/22/22 07:10 02/22/22 07:10 Labs: Abnormal Lab Results - Last 24 Hours (Table) 02/21/22 02/21/22 02/21/22 Range/Units 15:36 15:47 15:47 WBC 18.6 H (3.8-10.6) k/uL RBC 4.28 L (4.30-5.90) m/uL Plt Count 471 H (150-450) k/uL Neutrophils # 13.6 H (1.3-7.7) k/uL Monocytes # (0-1.0) k/uL ABG pH (7.35-7.45) ABG pCO2 (35-45) mmHg ABG pO2 (83-108) mmHg ABG Total CO2 (19-24) mmol/L ABG O2 Saturation (94-97) % Sodium 124 L (137-145) mmol/L Potassium (3.5-5.1) mmol/L Chloride 96 L (98-107) mmol/L Carbon Dioxide 19 L (22-30) mmol/L BUN 6 L (9-20) mg/dL Creatinine (0.66-1.25) mg/dL Glucose 261 H (74-99) mg/dL POC Glucose (mg/dL) 266 H (70-110) mg/dL Plasma Lactic Acid Graham (0.7-2.0) mmol/L Calcium 8.1 L (8.4-10.2) mg/dL Alkaline Phosphatase 162 H (38-126) U/L Albumin 2.9 L (3.5-5.0) g/dL Urine Protein (Negative) Urine Glucose (UA) (Negative) Urine Ketones (Negative) Ur Leukocyte Esterase (Negative) Urine WBC (0-5) /hpf Urine Bacteria (None) /hpf Hyaline Casts (0-2) /lpf Urine Mucus (None) /hpf U Benzodiazepines Scrn (NotDetected) U Marijuana (THC) Screen (NotDetected) 02/21/22 02/21/22 02/21/22 Range/Units 15:47 19:22 21:30 WBC (3.8-10.6) k/uL RBC (4.30-5.90) m/uL Plt Count (150-450) k/uL Neutrophils # (1.3-7.7) k/uL Monocytes # (0-1.0) k/uL ABG pH 7.12 L* 7.26 L (7.35-7.45) ABG pCO2 71 H* 47 H (35-45) mmHg ABG pO2 163 H 71 L (83-108) mmHg ABG Total CO2 25 H (19-24) mmol/L ABG O2 Saturation 98.6 H 92.2 L (94-97) % Sodium (137-145) mmol/L Potassium (3.5-5.1) mmol/L Chloride (98-107) mmol/L Carbon Dioxide (22-30) mmol/L BUN (9-20) mg/dL Creatinine (0.66-1.25) mg/dL Glucose (74-99) mg/dL POC Glucose (mg/dL) (70-110) mg/dL Plasma Lactic Acid Graham 7.9 H* (0.7-2.0) mmol/L Calcium (8.4-10.2) mg/dL Alkaline Phosphatase (38-126) U/L Albumin (3.5-5.0) g/dL Urine Protein (Negative) Urine Glucose (UA) (Negative) Urine Ketones (Negative) Ur Leukocyte Esterase (Negative) Urine WBC (0-5) /hpf Urine Bacteria (None) /hpf Hyaline Casts (0-2) /lpf Urine Mucus (None) /hpf U Benzodiazepines Scrn (NotDetected) U Marijuana (THC) Screen (NotDetected) 02/22/22 02/22/22 02/22/22 Range/Units 04:37 07:10 07:10 WBC 26.4 H (3.8-10.6) k/uL RBC (4.30-5.90) m/uL Plt Count (150-450) k/uL Neutrophils # 23.9 H (1.3-7.7) k/uL Monocytes # 1.1 H (0-1.0) k/uL ABG pH (7.35-7.45) ABG pCO2 (35-45) mmHg ABG pO2 (83-108) mmHg ABG Total CO2 (19-24) mmol/L ABG O2 Saturation (94-97) % Sodium 131 L (137-145) mmol/L Potassium 5.3 H (3.5-5.1) mmol/L Chloride (98-107) mmol/L Carbon Dioxide 15 L (22-30) mmol/L BUN 6 L (9-20) mg/dL Creatinine 0.52 L (0.66-1.25) mg/dL Glucose 166 H (74-99) mg/dL POC Glucose (mg/dL) (70-110) mg/dL Plasma Lactic Acid Graham (0.7-2.0) mmol/L Calcium 7.8 L (8.4-10.2) mg/dL Alkaline Phosphatase (38-126) U/L Albumin (3.5-5.0) g/dL Urine Protein Trace H (Negative) Urine Glucose (UA) Trace H (Negative) Urine Ketones Trace H (Negative) Ur Leukocyte Esterase Small H (Negative) Urine WBC 21 H (0-5) /hpf Urine Bacteria Rare H (None) /hpf Hyaline Casts 3 H (0-2) /lpf Urine Mucus Few H (None) /hpf U Benzodiazepines Scrn Detected H (NotDetected) U Marijuana (THC) Screen Detected H (NotDetected) Microbiology - Last 24 Hours (Table) 02/22/22 04:37 Urine Culture - Preliminary Urine,Voided Thrombosis Risk Factor Assmnt - DVT/VTE Prophylaxis DVT/VTE Prophylaxis: Pharmacologic Prophylaxis ordered Assessment and Plan Assessment: Seizure disorder with recurrent seizures. Noncompliant with medications. Bilateral upper lobe pneumonia concerning for aspiration pneumonia. Sepsis secondary above Severe lactic acidosis 7.9 on admission Acute hypoxic respiratory failure 6 L oxygen via nasal cannula to be above Hypovolemic hyponatremia Alcohol abuse History of marijuana use Ongoing nicotine addiction Coagulase-negative staph aureus bacteremia Hypertension Sinus tachycardia DVT prophylaxis Heparin subcu Chronic lower extremity skin changes/wounds. Plan: Consult consult mentation and monitor respiratory status closely. Patient was started on Keppra 1000 mg twice daily and continue with neurochecks and seizure and fall precautions. IV Ativan as needed for seizures. 20 to monitor for also withdrawal symptoms. Continue thiamine and multivitamins. Patient was given 1 dose of vancomycin. Continue with Zosyn and follow-up culture reports. Neurology, pulmonary and ID is on board. Time with Patient: Greater than 30
[2022-02-23] MEDS: IPRATROPIUM-ALBUTEROL 3 ML NEB INHALATION SCH ×7 (00:21→23:17)
[2022-02-23] MEDS: METOPROLOL TARTRATE 25 MG TAB PO SCH ×4 (03:24→19:52)
[2022-02-23] MEDS: LORazepam 2 MG/ML INJ IV PRN ×3 (04:47→22:41)
[2022-02-23] MEDS: HEPARIN SODIUM,PORCINE/PF 5,000 UNIT/0.5 ML SYRINGE SQ SCH ×3 (09:34→23:49)
[2022-02-23] MEDS: THIAMINE 100 MG TAB PO SCH (09:34)
[2022-02-23] MEDS: PIPERACILLIN-TAZOBACTAM 3.375 GM in SODIUM CHLORIDE 0.9% 100 ML IVPB SCH ×3 (09:34→23:49)
[2022-02-23] MEDS: levETIRAcetam IV 1,000 MG in SALINE 1 100ML.BAG IVPB SCH ×2 (11:17→19:52)
[2022-02-23 11:28] LABS: Basophils % (A) 0 %; Eosinophils % (A) 0 %; HGB 12.4 gm/dL (13.0-17.5); Lymphocytes # (A) 1.7 k/uL (1.0-4.8); Lymphocytes % (A) 8 %; MCH 30.4 pg (25.0-35.0); MCHC 32.7 g/dL (31.0-37.0); MCV 93.1 fL (80.0-100.0); Mean Platelet Volume 9.3; Monocytes # (A) 1.4 k/uL (0-1.0); Monocytes % (A) 7 %; Neutrophils # (A) 17.5 k/uL (1.3-7.7); Neutrophils % (A) 83 %; Platelet Count 331 k/uL (150-450); RBC 4.08 m/uL (4.30-5.90); RDW 13.2 % (11.5-15.5); WBC 21.1 k/uL (3.8-10.6)
[2022-02-23 12:22] LABS: ALT 18 U/L (4-49); AST 39 U/L (17-59); African American GFR (CKD) >90 (>60 ml/min/1.73 sqM); Albumin 2.6 g/dL (3.5-5.0); Alkaline Phosphatase 120 U/L (38-126); Anion Gap 9 mmol/L; Blood Urea Nitrogen 7 mg/dL (9-20); Calcium 8.4 mg/dL (8.4-10.2); Carbon Dioxide 22 mmol/L (22-30); Chloride 107 mmol/L (98-107); Glucose 88 mg/dL (74-99); Non-African American GFR(CKD) >90 (>60 ml/min/1.73 sqM); Potassium 4.8 mmol/L (3.5-5.1); Sodium 138 mmol/L (137-145); Total Bilirubin 0.4 mg/dL (0.2-1.3)
--- NOTE | 2022-02-23 14:37 | P.PN ---
Subjective Progress Note Date: 02/23/22 Principal diagnosis: Aspiration pneumonia Patient is a 61-year-old male with a past medical history significant for chronic on both abuse seizure disorder noncompliant with his seizure medication patient was brought into the ER with acute onset of seizure , patient did have elevated white count and evidence of multifocal infiltrating mostly in the left perihilar region concerning for possible aspiration pneumonia. On today's evaluation that is 02/23/2022, the patient remains to be afebrile, the patient is lethargic and is on BiPAP, no history obtained no vomiting diarrhea or any other changes reported by the nursing staff Objective - Vital Signs Vital signs: Vital Signs Temp 98.1 F 02/23/22 08:00 Pulse 127 H 02/23/22 12:27 Resp 22 02/23/22 08:00 BP 102/72 02/23/22 08:00 Pulse Ox 91 L 02/23/22 09:34 FiO2 60 02/23/22 09:34 Intake & Output 02/22/22 02/23/22 02/23/22 18:59 06:59 18:59 Intake Total 100 Output Total 1000 Balance -900 Intake: Intake, IV Titration 100 Amount Piperacillin-Tazobactam 3 100 .375 gm In Sodium Chloride 0.9% 100 ml @ 25 mls/hr IVPB Q8HR [facility] Rx# :[id number] Oral 0 Output: Urine 1000 Straight 500 Other: Voiding Method Diaper Diaper Diaper - Exam GENERAL DESCRIPTION: Middle-aged male lying in bed in no distress RESPIRATORY SYSTEM: Unlabored breathing , decreased breath sounds at bases HEART: S1 S2 regular rate and rhythm , ABDOMEN: Soft , no tenderness EXTREMITIES: No edema feet - Labs CBC & Chem 7: 02/23/22 09:35 02/23/22 09:35 Labs: Abnormal Lab Results - Last 24 Hours (Table) 02/23/22 02/23/22 Range/Units 09:35 09:35 WBC 21.1 H (3.8-10.6) k/uL RBC 4.08 L (4.30-5.90) m/uL Hgb 12.4 L (13.0-17.5) gm/dL Hct 38.0 L (39.0-53.0) % Neutrophils # 17.5 H (1.3-7.7) k/uL Monocytes # 1.4 H (0-1.0) k/uL BUN 7 L (9-20) mg/dL Creatinine 0.52 L (0.66-1.25) mg/dL Total Protein 6.0 L (6.3-8.2) g/dL Albumin 2.6 L (3.5-5.0) g/dL Microbiology - Last 24 Hours (Table) 02/21/22 15:58 Blood Culture Gram Stain - Preliminary Blood Blood Culture - Preliminary Coagulase Negative Staph Coagulase Negative Staph#2 02/21/22 15:40 Blood Culture Gram Stain - Preliminary Blood Blood Culture - Preliminary Coagulase Negative Staph Coagulase Negative Staph#2 02/22/22 04:37 Urine Culture - Final Urine,Voided 02/21/22 15:40 Blood Culture - Preliminary Blood No Growth after 24 hours 02/21/22 15:58 Blood Culture - Final Blood Assessment and Plan (1) Pneumonia Current Visit: Yes Status: Acute Code(s): J18.9 - PNEUMONIA, UNSPECIFIED ORGANISM SNOMED Code(s): 610027963 Plan: 1patient presented to hospital with active seizures in this patient now with evidence of multifocal pneumonia mostly left perihilar region did have elevated vital concerning for pneumonia of aspiration etiology. 2positive blood culture finalized as staph epi likely skin contamination. 3 CRP procalcitonin currently pending and sputum for gram stain and culture has not been collected. 4patient to continue with Zosyn 3.375 g every 8 hours and monitor clinical course closely Time with Patient: Less than 30
--- NOTE | 2022-02-23 14:52 | P.PN ---
Subjective Progress Note Date: 02/23/22 61-year-old male who presents to the emergency room on February 21, via EMS, for possible seizure. The patient has a history of chronic alcohol abuse, and chronic foot wounds. He apparently does have a history of seizure disorder, and is apparently noncompliant with his seizure medications. He apparently presented to the emergency department with acute onset of seizure, earlier on the day of admission, which was February 21. He apparently had 3 different seizure episodes within one hour. When EMS arrived, he apparently was actively seizing. They administered 5 mg of IV Versed, and the seizure stopped. The patient was apparently postictal after that. Since being in the emergency department, the patient has been improving neurologically. He was on BiPAP for a short period of time with settings of 15/5 and 60%, up until about 3:00 in the morning. Now he is on between 6-7 L of nasal oxygen. He is getting saline at keep vein open. Current vital signs include sinus tachycardia with a rate of 138, blood pressure 116/85 respiratory rate 22 and saturations 90-92%. White count 26.4, hemoglobin 13.5, hematocrit 43.6, and platelet count was normal. Most recent blood gases show pO2 71, pCO2 47, and a pH is 7.26. That was on BiPAP at 60%. Troponin was 0.030. Initial pH was 7.12. Sodium 124, potassium 4.9, chlorides 96, CO2 19, BUN 6, creatinine 0.66. Urine screen was positive f or benzodiazepines, and marijuana. Chest x-ray shows patchy airspace disease in the left hilar region, consistent with possible aspiration pneumonia. The patient is seen today 02/23/2022 in follow-up on the selective care unit. He is currently resting fairly comfortably in bed. Somewhat lethargic. He is on BiPAP 15/5 and 60% FiO2 with O2 saturations in the 90s. EEG revealed possible low amplitude sharp appearing waves in the right frontotemporal region. This may suggest underlying cortical irritability intensive for seizures. No seizures were recorded. Blood cultures positive for coag-negative staph. Urine culture negative. White count 21.1. Hemoglobin 12.4. Platelets 331. Sodium 138. Potassium 4.8. BUN 7. Creatinine 0.52. AST 39. ALT 18. He is continued on bronchodilators and Zosyn. Heparin for DVT prophylaxis. Remains in the CIWA protocol. Remains on Keppra. Objective - Vital Signs Vital signs: Vital Signs Temp 98.1 F 02/23/22 08:00 Pulse 127 H 02/23/22 12:27 Resp 22 02/23/22 08:00 BP 102/72 02/23/22 08:00 Pulse Ox 91 L 02/23/22 09:34 FiO2 60 02/23/22 09:34 Intake & Output 02/22/22 02/23/22 02/23/22 18:59 06:59 18:59 Intake Total 100 Output Total 1000 Balance -900 Intake: Intake, IV Titration 100 Amount Piperacillin-Tazobactam 3 100 .375 gm In Sodium Chloride 0.9% 100 ml @ 25 mls/hr IVPB Q8HR [facility] Rx# :[id number] Oral 0 Output: Urine 1000 Straight 500 Other: Voiding Method Diaper Diaper Diaper - Exam GENERAL EXAM: Arousable, 61-year-old male, on BiPAP 15/5 and 60% FiO2, comfortable in no apparent distress. HEAD: Normocephalic. EYES: Normal reaction of pupils, equal size. NOSE: Clear with pink turbinates. THROAT: No erythema or exudates. NECK: No masses, no JVD. CHEST: No chest wall deformity. LUNGS: Equal air entry with bilateral scattered rhonchi. CVS: S1 and S2 normal with no audible murmur, regular rhythm. ABDOMEN: No hepatosplenomegaly, normal bowel sounds, no guarding or rigidity. SPINE: No scoliosis or deformity SKIN: No rashes CENTRAL NERVOUS SYSTEM: Lethargic, arousable, tone is normal in all 4 extremities. EXTREMITIES: Scaly patches on the bottom of the feet. There is no peripheral edema. No clubbing, no cyanosis. Peripheral pulses are intact. - Labs CBC & Chem 7: 02/23/22 09:35 02/23/22 09:35 Labs: Abnormal Lab Results - Last 24 Hours (Table) 02/23/22 02/23/22 Range/Units 09:35 09:35 WBC 21.1 H (3.8-10.6) k/uL RBC 4.08 L (4.30-5.90) m/uL Hgb 12.4 L (13.0-17.5) gm/dL Hct 38.0 L (39.0-53.0) % Neutrophils # 17.5 H (1.3-7.7) k/uL Monocytes # 1.4 H (0-1.0) k/uL BUN 7 L (9-20) mg/dL Creatinine 0.52 L (0.66-1.25) mg/dL Total Protein 6.0 L (6.3-8.2) g/dL Albumin 2.6 L (3.5-5.0) g/dL Microbiology - Last 24 Hours (Table) 02/21/22 15:58 Blood Culture Gram Stain - Preliminary Blood Blood Culture - Preliminary Coagulase Negative Staph Coagulase Negative Staph#2 02/21/22 15:40 Blood Culture Gram Stain - Preliminary Blood Blood Culture - Preliminary Coagulase Negative Staph Coagulase Negative Staph#2 02/22/22 04:37 Urine Culture - Final Urine,Voided 02/21/22 15:40 Blood Culture - Preliminary Blood No Growth after 24 hours 02/21/22 15:58 Blood Culture - Final Blood Assessment and Plan Assessment: Recurrent seizure activity, and the patient noncompliant with epilepsy medications. Possible aspiration pneumonia, left lung. History of chronic tobacco use and nicotine dependence. History of hypertension. History of chronic alcohol abuse. History of marijuana use. Chronic wounds, lower extremities. Plan: The patient was seen and evaluated EEG, medications and labs reviewed Remains lethargic but arousable Continued on BiPAP 15/5 and 60% FiO2 Titrate the FiO2 as tolerated Continue on Zosyn Remains in the CIWA protocol Continued on Keppra We'll continue to follow I have personally seen and examined the patient, performed the documentation and the assessment and plan as written. Number of minutes spent on the visit: 10.
[2022-02-23] MEDS: METOPROLOL TARTRATE 5 MG/5 ML VIAL IVP PRN (19:52)
[2022-02-24] MEDS: METOPROLOL TARTRATE 5 MG/5 ML VIAL IVP PRN ×2 (03:55→19:52)
[2022-02-24] MEDS: LORazepam 2 MG/ML INJ IV PRN (03:55)
[2022-02-24] MEDS: IPRATROPIUM-ALBUTEROL 3 ML NEB INHALATION SCH ×5 (04:15→20:55)
[2022-02-24 08:08] LABS: Basophils % (A) 0 %; Eosinophils % (A) 0 %; HCT 34.9 % (39.0-53.0); HGB 11.1 gm/dL (13.0-17.5); Hypochromasia Slight; Lymphocytes # (A) 1.6 k/uL (1.0-4.8); Lymphocytes % (A) 11 %; MCH 29.8 pg (25.0-35.0); MCHC 31.7 g/dL (31.0-37.0); Mean Platelet Volume 8.2; Monocytes # (A) 0.7 k/uL (0-1.0); Monocytes % (A) 5 %; Neutrophils # (A) 12.7 k/uL (1.3-7.7); Neutrophils % (A) 82 %; Platelet Count 325 k/uL (150-450); RBC 3.72 m/uL (4.30-5.90); RDW 13.8 % (11.5-15.5); WBC 15.4 k/uL (3.8-10.6)
[2022-02-24 08:33] LABS: African American GFR (CKD) >90 (>60 ml/min/1.73 sqM); Anion Gap 4 mmol/L; Blood Urea Nitrogen 9 mg/dL (9-20); Carbon Dioxide 27 mmol/L (22-30); Chloride 108 mmol/L (98-107); Glucose 102 mg/dL (74-99); Non-African American GFR(CKD) >90 (>60 ml/min/1.73 sqM); Potassium 3.8 mmol/L (3.5-5.1); Sodium 139 mmol/L (137-145)
[2022-02-24] MEDS: HEPARIN SODIUM,PORCINE/PF 5,000 UNIT/0.5 ML SYRINGE SQ SCH ×3 (09:27→23:16)
[2022-02-24] MEDS: PIPERACILLIN-TAZOBACTAM 3.375 GM in SODIUM CHLORIDE 0.9% 100 ML IVPB SCH ×3 (09:28→23:16)
[2022-02-24] MEDS: levETIRAcetam IV 1,000 MG in SALINE 1 100ML.BAG IVPB SCH ×2 (09:28→19:52)
[2022-02-24] MEDS: THIAMINE 100 MG TAB PO SCH (09:29)
[2022-02-24] MEDS: METOPROLOL TARTRATE 25 MG TAB PO SCH ×2 (09:29→19:52)
[2022-02-24] MEDS: SODIUM CHLORIDE 0.9% 1,000 ML IV SCH ×2 (09:30→16:23)
--- NOTE | 2022-02-24 13:49 | P.PN ---
Subjective Progress Note Date: 02/24/22 61-year-old male who presents to the emergency room on February 21, via EMS, for possible seizure. The patient has a history of chronic alcohol abuse, and chronic foot wounds. He apparently does have a history of seizure disorder, and is apparently noncompliant with his seizure medications. He apparently presented to the emergency department with acute onset of seizure, earlier on the day of admission, which was February 21. He apparently had 3 different seizure episodes within one hour. When EMS arrived, he apparently was actively seizing. They administered 5 mg of IV Versed, and the seizure stopped. The patient was apparently postictal after that. Since being in the emergency department, the patient has been improving neurologically. He was on BiPAP for a short period of time with settings of 15/5 and 60%, up until about 3:00 in the morning. Now he is on between 6-7 L of nasal oxygen. He is getting saline at keep vein open. Current vital signs include sinus tachycardia with a rate of 138, blood pressure 116/85 respiratory rate 22 and saturations 90-92%. White count 26.4, hemoglobin 13.5, hematocrit 43.6, and platelet count was normal. Most recent blood gases show pO2 71, pCO2 47, and a pH is 7.26. That was on BiPAP at 60%. Troponin was 0.030. Initial pH was 7.12. Sodium 124, potassium 4.9, chlorides 96, CO2 19, BUN 6, creatinine 0.66. Urine screen was positive f or benzodiazepines, and marijuana. Chest x-ray shows patchy airspace disease in the left hilar region, consistent with possible aspiration pneumonia. The patient is seen today 02/23/2022 in follow-up on the selective care unit. He is currently resting fairly comfortably in bed. Somewhat lethargic. He is on BiPAP 15/5 and 60% FiO2 with O2 saturations in the 90s. EEG revealed possible low amplitude sharp appearing waves in the right frontotemporal region. This may suggest underlying cortical irritability intensive for seizures. No seizures were recorded. Blood cultures positive for coag-negative staph. Urine culture negative. White count 21.1. Hemoglobin 12.4. Platelets 331. Sodium 138. Potassium 4.8. BUN 7. Creatinine 0.52. AST 39. ALT 18. He is continued on bronchodilators and Zosyn. Heparin for DVT prophylaxis. Remains in the CIWA protocol. Remains on Keppra. The patient seen today 02/24/2022 in follow-up on the selective care unit. He is currently sitting up in bed. More awake and arousable. Currently on 5 L high flow nasal cannula. He has been alternating with BiPAP 15/5 and 60% FiO2. He has normal saline at 50 MLS per hour. Maintained on Zosyn. Bronchodilators. Heparin for DVT prophylaxis. No seizure activity. Remains in CIWA protocol. Last Ativan requirement at 4 AM this morning. The cultures positive for coag- negative staph. White count 15.4. Hemoglobin 11.1. Platelets 325. Sodium 139. Potassium 3.8. BUN 9. Creatinine 0.75. Objective - Vital Signs Vital signs: Vital Signs Temp 97.0 F L 02/24/22 12:00 Pulse 132 H 02/24/22 12:00 Resp 22 02/24/22 12:00 BP 127/91 02/24/22 12:00 Pulse Ox 96 02/24/22 12:00 FiO2 60 02/23/22 16:05 Intake & Output 02/23/22 02/24/22 02/24/22 18:59 06:59 18:59 Intake Total 1200 Balance 1200 Intake: Intake, IV Titration 1200 Amount Piperacillin-Tazobactam 3 100 .375 gm In Sodium Chloride 0.9% 100 ml @ 25 mls/hr IVPB Q8HR [facility] Rx# :[id number] Sodium Chloride 0.9% 1, 1000 000 ml @ 100 mls/hr IV . Q10H [facility] Rx#:[id number] levETIRAcetam IV 1,000 mg 100 In Saline 1 100ml.bag @ 400 mls/hr IVPB Q12HR [facility] Rx#:[id number] Other: Voiding Method Diaper Diaper Diaper # Voids 2 1 - Exam GENERAL EXAM: Arousable, 61-year-old male, on 5 L nasal cannula, alternating with BiPAP 15/5 and 60% FiO2, comfortable in no apparent distress. HEAD: Normocephalic. EYES: Normal reaction of pupils, equal size. NOSE: Clear with pink turbinates. THROAT: No erythema or exudates. NECK: No masses, no JVD. CHEST: No chest wall deformity. LUNGS: Equal air entry with bilateral scattered rhonchi. CVS: S1 and S2 normal with no audible murmur, regular rhythm. ABDOMEN: No hepatosplenomegaly, normal bowel sounds, no guarding or rigidity. SPINE: No scoliosis or deformity SKIN: No rashes CENTRAL NERVOUS SYSTEM: Lethargic but arousable, tone is normal in all 4 extremities. EXTREMITIES: Scaly patches on the bottom of the feet. There is no peripheral edema. No clubbing, no cyanosis. Peripheral pulses are intact. - Labs CBC & Chem 7: 02/24/22 06:46 02/24/22 06:46 Labs: Abnormal Lab Results - Last 24 Hours (Table) 02/24/22 02/24/22 Range/Units 06:46 06:46 WBC 15.4 H (3.8-10.6) k/uL RBC 3.72 L (4.30-5.90) m/uL Hgb 11.1 L (13.0-17.5) gm/dL Hct 34.9 L (39.0-53.0) % Neutrophils # 12.7 H (1.3-7.7) k/uL Chloride 108 H (98-107) mmol/L Glucose 102 H (74-99) mg/dL Calcium 8.0 L (8.4-10.2) mg/dL Microbiology - Last 24 Hours (Table) 02/21/22 15:40 Blood Culture Gram Stain - Final Blood Blood Culture - Final Coagulase Negative Staph Coagulase Negative Staph#2 02/21/22 15:58 Blood Culture Gram Stain - Final Blood Blood Culture - Final Coagulase Negative Staph Coagulase Negative Staph#2 Coagulase Negative Staph#3 02/21/22 15:40 Blood Culture - Preliminary Blood No Growth after 48 hours Assessment and Plan Assessment: Recurrent seizure activity, and the patient noncompliant with epilepsy medications. Possible aspiration pneumonia, left lung. History of chronic tobacco use and nicotine dependence. History of hypertension. History of chronic alcohol abuse. History of marijuana use. Chronic wounds, lower extremities. Plan: The patient was seen and evaluated Medications and labs reviewed Remains less lethargic and arousable Currently on 5 L nasal cannula Alternating with BiPAP 15/5 and 60% FiO2 Titrate the FiO2 as tolerated Continue on Zosyn Remains in the CIWA protocol Continued on Keppra Follow-up chest x-ray in a.m. We'll continue to follow I have personally seen and examined the patient, performed the documentation and the assessment and plan as written. Number of minutes spent on the visit: 10.
--- NOTE | 2022-02-24 14:47 | P.PN ---
Subjective Progress Note Date: 02/24/22 Principal diagnosis: Aspiration pneumonia Patient is a 61-year-old male with a past medical history significant for chronic on both abuse seizure disorder noncompliant with his seizure medication patient was brought into the ER with acute onset of seizure , patient did have elevated white count and evidence of multifocal infiltrating mostly in the left perihilar region concerning for possible aspiration pneumonia. On today's evaluation that is 02/24/2022, the patient continues to be afebrile, the patient is slightly more awake and alert and is currently off the BiPAP, currently on a 5 L nasal cannula, not a very good historian and no vomiting or diarrhea has been reported by the nursing staff Objective - Vital Signs Vital signs: Vital Signs Temp 97.0 F L 02/24/22 12:00 Pulse 132 H 02/24/22 12:00 Resp 22 02/24/22 12:00 BP 127/91 02/24/22 12:00 Pulse Ox 96 02/24/22 12:00 FiO2 60 02/23/22 16:05 Intake & Output 02/23/22 02/24/22 02/24/22 18:59 06:59 18:59 Intake Total 1200 Balance 1200 Intake: Intake, IV Titration 1200 Amount Piperacillin-Tazobactam 3 100 .375 gm In Sodium Chloride 0.9% 100 ml @ 25 mls/hr IVPB Q8HR [facility] Rx# :[id number] Sodium Chloride 0.9% 1, 1000 000 ml @ 100 mls/hr IV . Q10H [facility] Rx#:[id number] levETIRAcetam IV 1,000 mg 100 In Saline 1 100ml.bag @ 400 mls/hr IVPB Q12HR [facility] Rx#:[id number] Other: Voiding Method Diaper Diaper Diaper # Voids 2 1 - Exam GENERAL DESCRIPTION: Middle-aged male lying in bed in no distress RESPIRATORY SYSTEM: Unlabored breathing , decreased breath sounds at bases HEART: S1 S2 regular rate and rhythm , ABDOMEN: Soft , no tenderness EXTREMITIES: No edema feet - Labs CBC & Chem 7: 02/24/22 06:46 02/24/22 06:46 Labs: Abnormal Lab Results - Last 24 Hours (Table) 02/24/22 02/24/22 Range/Units 06:46 06:46 WBC 15.4 H (3.8-10.6) k/uL RBC 3.72 L (4.30-5.90) m/uL Hgb 11.1 L (13.0-17.5) gm/dL Hct 34.9 L (39.0-53.0) % Neutrophils # 12.7 H (1.3-7.7) k/uL Chloride 108 H (98-107) mmol/L Glucose 102 H (74-99) mg/dL Calcium 8.0 L (8.4-10.2) mg/dL Microbiology - Last 24 Hours (Table) 02/21/22 15:40 Blood Culture - Preliminary Blood No Growth after 48 hours 02/21/22 15:58 Blood Culture Gram Stain - Preliminary Blood Blood Culture - Preliminary Coagulase Negative Staph Coagulase Negative Staph#2 02/21/22 15:40 Blood Culture Gram Stain - Preliminary Blood Blood Culture - Preliminary Coagulase Negative Staph Coagulase Negative Staph#2 02/22/22 04:37 Urine Culture - Final Urine,Voided Assessment and Plan (1) Pneumonia Current Visit: Yes Status: Acute Code(s): J18.9 - PNEUMONIA, UNSPECIFIED ORGANISM SNOMED Code(s): 257379317 Plan: 1patient presented to hospital with active seizures in this patient now with evidence of multifocal pneumonia mostly left perihilar region did have elevated vital concerning for pneumonia of aspiration etiology. 2positive blood culture finalized as staph epi likely skin contamination. 3patient seemed to have some clinical improvement and will continue with the Zosyn. Will try to obtain a sputum to narrow down on antibiotics Time with Patient: Less than 30
--- NOTE | 2022-02-24 15:07 | P.PN ---
Subjective Progress Note Date: 02/23/22 Patient is sleeping, with BiPAP on. No further seizures reported. Objective - Vital Signs Vital signs: Vital Signs Temp 98.1 F 02/23/22 08:00 Pulse 127 H 02/23/22 12: Resp 02/23/22 08:00 BP 102/72 02/23/22 08:00 Pulse Ox 91 L 02/23/22 09:34 FiO2 60 02/23/22 09:34 Intake & Output 02/22/22 02/23/22 02/23/22 18:59 06:59 18:59 Intake Total 100 Output Total 1000 Balance -900 Intake: Intake, IV Titration 100 Amount Piperacillin-Tazobactam 3 100 .375 gm In Sodium Chloride 0.9% 100 ml @ 25 mls/hr IVPB Q8HR [facility] Rx# :[id number] Oral 0 Output: Urine 1000 Straight 500 Other: Voiding Method Diaper Diaper Diaper - Exam Patient is asleep. Detailed testing deferred. BiPAP is on. - Labs CBC & Chem 7: 02/24/22 06:46 02/24/22 06:46 Labs: Abnormal Lab Results - Last 24 Hours (Table) 02/23/22 02/23/22 Range/Units 09:35 09:35 WBC 21.1 H (3.8-10.6) k/uL RBC 4.08 L (4.30-5.90) m/uL Hgb 12.4 L (13.0-17.5) gm/dL Hct 38.0 L (39.0-53.0) % Neutrophils # 17.5 H (1.3-7.7) k/uL Monocytes # 1.4 H (0-1.0) k/uL BUN 7 L (9-20) mg/dL Creatinine 0.52 L (0.66-1.25) mg/dL Total Protein 6.0 L (6.3-8.2) g/dL Albumin 2.6 L (3.5-5.0) g/dL Microbiology - Last 24 Hours (Table) 02/21/22 15:58 Blood Culture Gram Stain - Preliminary Blood Blood Culture - Preliminary Coagulase Negative Staph Coagulase Negative Staph#2 02/21/22 15:40 Blood Culture Gram Stain - Preliminary Blood Blood Culture - Preliminary Coagulase Negative Staph Coagulase Negative Staph#2 02/22/22 04:37 Urine Culture - Final Urine,Voided 02/21/22 15:40 Blood Culture - Preliminary Blood No Growth after 24 hours 02/21/22 15:58 Blood Culture - Final Blood Assessment and Plan Assessment: * Seizure disorder, came with recurrent seizures (3). Seizures aborted with Versed 5 mg IV push. * History of alcoholism. Patient at present denies any regular alcoholism. He states that he just drinks 1-2 beers per night. Patient also takes Klonopin, denies running out of it. No obvious cause/provoking factor identified. * Pneumonia * Feet ulcers * Tobacco use * Marijuana use * Coronary artery disease Plan: * Continue Keppra. Patient has received a loading dose of Keppra 2000 mg in the ER, and will be maintained on Keppra 1000 mg twice a day. * EEG was abnormal due to presence of possible low amplitude sharp-appearing waves in the right frontotemporal region. This may suggest underlying cortical irritability and tendency for seizures. No electrographic seizure was recorded. * MRI of the brain rule out secondary causes of seizure. * No driving, climbing ladders, operating dangerous machineries or swimming. * Recommended abstinence from alcoholism, marijuana and tobacco use.
--- NOTE | 2022-02-24 16:49 | MR ---
EXAMINATION TYPE: MR brain wo con DATE OF EXAM: 02/24/2022 4:05 PM COMPARISON: 04/01/2020. CLINICAL INDICATION:Male, 61 years old with history of New onset seizures; TECHNIQUE: Multi planar, multi sequence imaging was performed through the brain including: T1, T2, In version recovery, Diffusion weighted imaging, and gradient echo imaging. No gadolinium was given. FINDINGS: Restricted diffusion changes of the right hippocampus and uncus Generalized atrophy changes of both the cerebellum and cerebrum. The ventricular system, and cisterns appear unremarkable. Restricted diffusion with. Midline structu res show no abnormality. The susceptibility weighted images do not reveal any evidence for micro-hemo rrhage. The bone marrow signal is within normal limits. Paranasal sinuses and mastoid air cells: Moderate scattered paranasal sinus disease. Visualized orbits: Orbital contents are intact. IMPRESSION: 1. Right hippocampus and uncus restricted diffusion is favored represent sequela of patient's seizure . Other differential considerations include mesial temporal sclerosis however it is felt to be less l ikely given no significant atrophy changes. Other etiologies include limbic encephalitis. Short-term follow-up MRI is recommended and clinical correlation. 2. Generalized atrophy changes and mild nonspecific white matter changes, likely secondary to small v essel ischemic disease. 3. Moderate paranasal sinus disease.
[2022-02-24] MEDS: ASPIRIN 81 MG PO SCH (21:31)
[2022-02-25] MEDS: IPRATROPIUM-ALBUTEROL 3 ML NEB INHALATION SCH ×7 (00:43→23:51)
--- NOTE | 2022-02-25 07:24 | XR ---
EXAMINATION TYPE: XR chest 1V portable DATE OF EXAM: 02/25/2022 6:39 AM COMPARISON: Chest radiographs from 02/21/2022 TECHNIQUE: XR chest 1V portable Portable AP radiograph of the chest. CLINICAL INDICATION:Male, 61 years old with history of Aspiration pneumonia; FINDINGS: Lungs/Pleura: Increased airspace opacities worse on the on the right with low lung volumes. Blunting of the right costophrenic angle on the right. Persistent left perihilar opacities. Pulmonary vascularity: Unremarkable. Heart/mediastinum: Cardiomediastinal silhouette is enlarged and stable. Musculoskeletal: No acute osseous pathology. IMPRESSION: Worsening scattered airspace opacities new right pleural effusion.
[2022-02-25 07:47] LABS: Basophils % (A) 0 %; Eosinophils % (A) 0 %; HCT 35.1 % (39.0-53.0); HGB 11.2 gm/dL (13.0-17.5); Hypochromasia Moderate; Lymphocytes # (A) 1.5 k/uL (1.0-4.8); Lymphocytes % (A) 13 %; MCH 30.6 pg (25.0-35.0); MCHC 31.8 g/dL (31.0-37.0); MCV 96.1 fL (80.0-100.0); Mean Platelet Volume 8.2; Monocytes # (A) 0.8 k/uL (0-1.0); Monocytes % (A) 6 %; Neutrophils # (A) 9.1 k/uL (1.3-7.7); Neutrophils % (A) 77 %; Platelet Count 290 k/uL (150-450); RBC 3.65 m/uL (4.30-5.90); RDW 13.5 % (11.5-15.5); WBC 11.8 k/uL (3.8-10.6)
[2022-02-25 07:58] LABS: African American GFR (CKD) >90 (>60 ml/min/1.73 sqM); Anion Gap 4 mmol/L; Blood Urea Nitrogen 12 mg/dL (9-20); Calcium 7.9 mg/dL (8.4-10.2); Carbon Dioxide 23 mmol/L (22-30); Chloride 116 mmol/L (98-107); Glucose 95 mg/dL (74-99); Non-African American GFR(CKD) >90 (>60 ml/min/1.73 sqM); Potassium 3.9 mmol/L (3.5-5.1); Sodium 143 mmol/L (137-145)
[2022-02-25] MEDS: HEPARIN SODIUM,PORCINE/PF 5,000 UNIT/0.5 ML SYRINGE SQ SCH ×3 (08:55→23:26)
[2022-02-25] MEDS: levETIRAcetam IV 1,000 MG in SALINE 1 100ML.BAG IVPB SCH ×2 (08:55→21:05)
[2022-02-25] MEDS: METOPROLOL TARTRATE 5 MG/5 ML VIAL IVP PRN ×2 (08:55→21:03)
[2022-02-25] MEDS: PIPERACILLIN-TAZOBACTAM 3.375 GM in SODIUM CHLORIDE 0.9% 100 ML IVPB SCH ×2 (09:13→17:44)
--- NOTE | 2022-02-25 09:41 | P.PN ---
Subjective Progress Note Date: 02/24/22 Patient was seen for a follow-up. Patient is laying comfortably in the bed. Patient is more alert and awake. However speech is somewhat hoarse and slurred. Patient denies any headache at this time. Objective - Vital Signs Vital signs: Vital Signs Temp 98.2 F 02/24/22 16:00 Pulse 124 H 02/24/22 16:00 Resp 20 02/24/22 16:00 BP 115/84 02/24/22 16:00 Pulse Ox 98 02/24/22 16:00 FiO2 60 02/23/22 16:05 Intake & Output 02/23/22 02/24/22 02/24/22 18:59 06:59 18:59 Intake Total 1200 Balance 1200 Intake: Intake, IV Titration 1200 Amount Piperacillin-Tazobactam 3 100 .375 gm In Sodium Chloride 0.9% 100 ml @ 25 mls/hr IVPB Q8HR [facility] Rx# :[id number] Sodium Chloride 0.9% 1, 1000 000 ml @ 100 mls/hr IV . Q10H [facility] Rx#:[id number] levETIRAcetam IV 1,000 mg 100 In Saline 1 100ml.bag @ 400 mls/hr IVPB Q12HR [facility] Rx#:[id number] Other: Voiding Method Diaper Diaper Diaper # Voids 2 1 - Exam Patient is alert and awake, appears encephalopathic. Slightly slow mentation. Speech is slightly hoarse, slightly slurred. Muscle strength is equal. - Labs CBC & Chem 7: 02/25/22 07:03 02/25/22 07:03 Labs: Abnormal Lab Results - Last 24 Hours (Table) 02/24/22 02/24/22 Range/Units 06:46 06:46 WBC 15.4 H (3.8-10.6) k/uL RBC 3.72 L (4.30-5.90) m/uL Hgb 11.1 L (13.0-17.5) gm/dL Hct 34.9 L (39.0-53.0) % Neutrophils # 12.7 H (1.3-7.7) k/uL Chloride 108 H (98-107) mmol/L Glucose 102 H (74-99) mg/dL Calcium 8.0 L (8.4-10.2) mg/dL Microbiology - Last 24 Hours (Table) 02/21/22 15:40 Blood Culture - Preliminary Blood No Growth after 72 hours 02/21/22 15:40 Blood Culture Gram Stain - Final Blood Blood Culture - Final Coagulase Negative Staph Coagulase Negative Staph#2 02/21/22 15:58 Blood Culture Gram Stain - Final Blood Blood Culture - Final Coagulase Negative Staph Coagulase Negative Staph#2 Coagulase Negative Staph#3 Assessment and Plan Assessment: * Seizure disorder, came with recurrent seizures (3). Seizures aborted with Versed 5 mg IV push. * Abnormal brain MRI, with abnormal signal in the right hippocampus and uncus restricted diffusion is favored represent sequela of patient's seizure. * History of alcoholism. Patient at present denies any regular alcoholism. He states that he just drinks 1-2 beers per night. Patient also takes Klonopin regularly, denies running out of it. No obvious cause/provoking factor identified. * Pneumonia * Feet ulcers * Tobacco use * Marijuana use * Coronary artery disease Plan: * Continue Keppra. Patient has received a loading dose of Keppra 2000 mg in the ER, and will be maintained on Keppra 1000 mg twice a day. * EEG was abnormal due to presence of possible low amplitude sharp-appearing waves in the right frontotemporal region. This may suggest underlying cortical irritability and tendency for seizures. No electrographic seizure was recorded. * MRI of the brain without contrast revealed right hippocampus and uncus restricted diffusion is favored to represent sequela of patient's seizure. Other differential includes mesial temporal sclerosis, however it is felt to be less likely given no significant atrophic changes. Other etiologies include limbic encephalitis. Short-term follow-up MRI is recommended. I personally reviewed MRI, agree with the findings. * Start aspirin 81 mg daily, as there is abnormal signal on DWI in the right hippocampus. * 2-D echo from 03/24/2021 revealed normal left ventricular size, moderate concentric LVH. EF is mild to moderately impaired 40-45%. Normal left atrial size. Mild aortic valve sclerosis with trace to mild AR. * Check carotid Doppler * Lumbar puncture, rule out encephalitis. Discussed with ID. Agree with the lumbar puncture. * Check NMDA antibodies. * No driving, climbing ladders, operating dangerous machineries or swimming. * Recommended abstinence from alcoholism, marijuana and tobacco use.
--- NOTE | 2022-02-25 11:07 | US ---
EXAMINATION TYPE: US carotid duplex BILAT DATE OF EXAM: 02/25/2022 COMPARISON: NONE CLINICAL HISTORY: Abnormal brain MRI, rule out CVA. TECHNIQUE: Carotid duplex ultrasound examination. Indirect Doppler criteria was utilized. FINDINGS: EXAM MEASUREMENTS: RIGHT: Peak Systolic Velocity (PSV) cm/sec ----- Right CCA: 50.3 ----- Right ICA: 45.8 ----- Right ECA: 52.9 ICA/CCA ratio: 0.9 RIGHT: End Diastole cm/sec ----- Right CCA: 11.8 ----- Right ICA: 21.2 ----- Right ECA: 15.2 LEFT: Peak Systolic Velocity (PSV) cm/sec ----- Left CCA: 41.7 ----- Left ICA: 42.5 ----- Left ECA: 45.8 ICA/CCA ratio: 1.0 LEFT: End Diastole cm/sec ----- Left CCA: 14.7 ----- Left ICA: 17.9 ----- Left ECA: 7.5 VERTEBRALS (direction of flow): Right Vertebral: Antegrade Left Vertebral: unable to visualize PLANNING AIDE NOTES: Moderate plaque with no significant velocity increases. IMPRESSION: Less than 50% stenosis of the bilateral carotid bifurcations. Criteria for Assigning % of Stenosis / Diameter reduction (Estimation based on the indirect measurements of the internal carotid artery velocities (ICA PSV). 1. Normal (no stenosis)=ICA PSV < 125 cm/s: ratio < 2.0: ICA EDV<40 cm/s. 2. Less than 50% stenosis=ICA PSV < 125 cm/s: ratio < 2.0: ICA EDV<40 cm/s. 3. 50 to 69% stenosis=ICA PSV of 125 to 230 cm/s: ration 2.0 ? 4.0: ICA EDV 40-100 cm/s. 4. Greater than 70% stenosis to near occlusion= ICA PSV > 230 cm/s: ratio > 4.0: ICA EDV > 100 cm/s. 5. Near occlusion= ICA PSV velocities may be low or undetectable: variable ratio and ICA EDV. 6. Total occlusion=unable to detect flow.
--- NOTE | 2022-02-25 11:47 | P.GSCN ---
History of Present Illness Consult date: 02/25/22 Reason for Consult: Gross Hematuria History of present illness: This is 61 yo male admitted to the hospital with seizure and pneumonia, urology is consulted for Calle catheter placement. Patient has been having low urine output, catheter placement by nursings was attempted but was unsuccessful, resistance was met and was noted patient to have gross hematuria. At baseline he denies any voiding dysfunction. Denies any previous history of gross hematuria. He indicates he voids with adequate flow. Indicated he's had a catheter placed before without difficulties. Review of Systems - Constitutional Denies fever, Denies weight loss - Cardiovascular Denies chest pain, Denies shortness of breath - Gastrointestinal Reports as per HPI - Genitourinary Reports hematuria, Denies flank pain - Integumentary Denies rash, Denies unusual bruising - Neurological Reports seizures Past Medical History Past Medical History: Seizure Disorder History of Any Multi-Drug Resistant Organisms: None Reported Additional Past Surgical History / Comment(s): Right leg fracture repair Past Psychological History: No Psychological Hx Reported Smoking Status: Current every day smoker Past Alcohol Use History: None Reported, Daily Past Drug Use History: None Reported - Past Family History Mother Family Medical History: Coronary Artery Disease (CAD) Medications and Allergies Home Medications Medication Instructions Recorded Confirmed Type Metoprolol Tartrate [Lopressor] 100 mg PO BID tab 06/14/21 02/21/22 Rx Hydrocortisone Cream 1 applic TOPICAL BID PRN 12/08/21 02/21/22 History [Hydrocortisone 1% Cream] cloNIDine HCL [Catapres] 0.1 mg PO HS 12/08/21 02/21/22 History cloNIDine HCL [Catapres] 0.2 mg PO DAILY 12/08/21 02/21/22 History lisinopriL [Prinivil] 10 mg PO DAILY 12/08/21 02/21/22 History Triamcinolone 0.1% Cream [Kenalog 1 applic TOPICAL DAILY 02/21/22 02/21/22 History 0.1% Cream] Allergies Allergy/AdvReac Type Severity Reaction Status Date / Time No Known Allergies Allergy Verified 02/21/22 16:09 Surgical - Exam Vital Signs Temp Pulse Resp BP Pulse Ox 97.5 F L 108 H 26 H 113/84 94 L 02/21/22 15:33 02/21/22 15:33 02/21/22 15:33 02/21/22 15:33 02/21/22 15:33 - General no distress, no pain - Eyes normal ocular movement, no pale - ENT normal nares - Respiratory normal expansion - Abdomen Abdomen: soft, non tender - Genitourinary normal penis with no external lesions, testicles present Results - Labs 02/25/22 07:03 02/25/22 07:03 Abnormal Lab Results - Last 24 Hours (Table) 02/25/22 02/25/22 Range/Units 07:03 07:03 WBC 11.8 H (3.8-10.6) k/uL RBC 3.65 L (4.30-5.90) m/uL Hgb 11.2 L (13.0-17.5) gm/dL Hct 35.1 L (39.0-53.0) % Neutrophils # 9.1 H (1.3-7.7) k/uL Chloride 116 H (98-107) mmol/L Creatinine 0.57 L (0.66-1.25) mg/dL Calcium 7.9 L (8.4-10.2) mg/dL Microbiology - Last 24 Hours (Table) 02/21/22 15:40 Blood Culture - Preliminary Blood No Growth after 72 hours 02/21/22 15:40 Blood Culture Gram Stain - Final Blood Blood Culture - Final Coagulase Negative Staph Coagulase Negative Staph#2 02/21/22 15:58 Blood Culture Gram Stain - Final Blood Blood Culture - Final Coagulase Negative Staph Coagulase Negative Staph#2 Coagulase Negative Staph#3 Diabetes panel 02/25/22 Range/Units 07:03 Sodium 143 (137-145) mmol/L Potassium 3.9 (3.5-5.1) mmol/L Chloride 116 H (98-107) mmol/L Carbon Dioxide 23 (22-30) mmol/L BUN 12 (9-20) mg/dL Creatinine 0.57 L (0.66-1.25) mg/dL Glucose 95 (74-99) mg/dL Calcium 7.9 L (8.4-10.2) mg/dL Calcium panel 02/25/22 Range/Units 07:03 Calcium 7.9 L (8.4-10.2) mg/dL Pituitary panel 02/25/22 Range/Units 07:03 Sodium 143 (137-145) mmol/L Potassium 3.9 (3.5-5.1) mmol/L Chloride 116 H (98-107) mmol/L Carbon Dioxide 23 (22-30) mmol/L BUN 12 (9-20) mg/dL Creatinine 0.57 L (0.66-1.25) mg/dL Glucose 95 (74-99) mg/dL Calcium 7.9 L (8.4-10.2) mg/dL Adrenal panel 02/25/22 Range/Units 07:03 Sodium 143 (137-145) mmol/L Potassium 3.9 (3.5-5.1) mmol/L Chloride 116 H (98-107) mmol/L Carbon Dioxide 23 (22-30) mmol/L BUN 12 (9-20) mg/dL Creatinine 0.57 L (0.66-1.25) mg/dL Glucose 95 (74-99) mg/dL Calcium 7.9 L (8.4-10.2) mg/dL Assessment and Plan Assessment: 61-year-old male with gross hematuria after attempted catheter placement for accurate I's and O's. Patient's been having low urine output. Attempted catheter placement by nurses was unsuccessful. His gross hematuria secondary to catheter trauma most likely. -16-Tamazight coud catheter was placed without any difficulties, catheter can be removed when no longer needed by the primary
--- NOTE | 2022-02-25 11:47 | P.PN ---
Subjective Progress Note Date: 02/25/22 61-year-old male who presents to the emergency room on February 21, via EMS, for possible seizure. The patient has a history of chronic alcohol abuse, and chronic foot wounds. He apparently does have a history of seizure disorder, and is apparently noncompliant with his seizure medications. He apparently presented to the emergency department with acute onset of seizure, earlier on the day of admission, which was February 21. He apparently had 3 different seizure episodes within one hour. When EMS arrived, he apparently was actively seizing. They administered 5 mg of IV Versed, and the seizure stopped. The patient was apparently postictal after that. Since being in the emergency department, the patient has been improving neurologically. He was on BiPAP for a short period of time with settings of 15/5 and 60%, up until about 3:00 in the morning. Now he is on between 6-7 L of nasal oxygen. He is getting saline at keep vein open. Current vital signs include sinus tachycardia with a rate of 138, blood pressure 116/85 respiratory rate 22 and saturations 90-92%. White count 26.4, hemoglobin 13.5, hematocrit 43.6, and platelet count was normal. Most recent blood gases show pO2 71, pCO2 47, and a pH is 7.26. That was on BiPAP at 60%. Troponin was 0.030. Initial pH was 7.12. Sodium 124, potassium 4.9, chlorides 96, CO2 19, BUN 6, creatinine 0.66. Urine screen was positive f or benzodiazepines, and marijuana. Chest x-ray shows patchy airspace disease in the left hilar region, consistent with possible aspiration pneumonia. The patient is seen today 02/23/2022 in follow-up on the selective care unit. He is currently resting fairly comfortably in bed. Somewhat lethargic. He is on BiPAP 15/5 and 60% FiO2 with O2 saturations in the 90s. EEG revealed possible low amplitude sharp appearing waves in the right frontotemporal region. This may suggest underlying cortical irritability intensive for seizures. No seizures were recorded. Blood cultures positive for coag-negative staph. Urine culture negative. White count 21.1. Hemoglobin 12.4. Platelets 331. Sodium 138. Potassium 4.8. BUN 7. Creatinine 0.52. AST 39. ALT 18. He is continued on bronchodilators and Zosyn. Heparin for DVT prophylaxis. Remains in the CIWA protocol. Remains on Keppra. The patient seen today 02/24/2022 in follow-up on the selective care unit. He is currently sitting up in bed. More awake and arousable. Currently on 5 L high flow nasal cannula. He has been alternating with BiPAP 15/5 and 60% FiO2. He has normal saline at 50 MLS per hour. Maintained on Zosyn. Bronchodilators. Heparin for DVT prophylaxis. No seizure activity. Remains in CIWA protocol. Last Ativan requirement at 4 AM this morning. The cultures positive for coag- negative staph. White count 15.4. Hemoglobin 11.1. Platelets 325. Sodium 139. Potassium 3.8. BUN 9. Creatinine 0.75. The patient is seen today 02/25/2022 in follow-up on the selective care unit. He is more awake and alert today. Denies any worsening shortness of breath, cough or congestion. Currently maintaining O2 saturations in the 90s on 5 L/m per nasal cannula. He had initially been on BiPAP 5 over 5 and 60% FiO2. Chest x-ray revealed worsening scattered airspace opacities with a new right lower lobe collapse. MRI of the brain revealed right hippocampus and fungus restricted diffusion favoring sequela patient seizure. Generalized atrophy changes and mild nonspecific white matter changes secondary to small vessel ischemic disease. Moderate paranasal sinus disease. Carotid Dopplers revealed less than 50% stenosis bilaterally. Blood cultures revealed coag-negative staph. White count 11.8. Hemoglobin 11.2. Sodium 143. Potassium 3.9. BUN 12. Creatinine 0.57. He remains on DuoNeb inhalations. Antibiotics in the form of Zosyn. Heparin for DVT prophylaxis. Remains on Keppra. Normal saline at 100 ML's per hour. No seizure activity. Objective - Vital Signs Vital signs: Vital Signs Temp 98 F 02/25/22 08:55 Pulse 133 H 02/25/22 08:55 Resp 20 02/25/22 08:55 BP 120/86 02/25/22 08:55 Pulse Ox 98 02/25/22 08:55 FiO2 60 02/25/22 03:41 Intake & Output 02/24/22 02/25/22 02/25/22 18:59 06:59 18:59 Intake Total 300 Output Total 300 Balance 300 -300 Intake: Intake, IV Titration 300 Amount Piperacillin-Tazobactam 3 200 .375 gm In Sodium Chloride 0.9% 100 ml @ 25 mls/hr IVPB Q8HR COUNTS INCLUDE 234 BEDS AT THE [facility] Rx# :[id number] levETIRAcetam IV 1,000 mg 100 In Saline 1 100ml.bag @ 400 mls/hr IVPB Q12HR COUNTS INCLUDE 234 BEDS AT THE [facility] Rx#:[id number] Oral 0 Output: Urine 300 Other: Voiding Method Diaper Diaper Diaper # Voids 1 - Exam GENERAL EXAM: Awake, alert, 61-year-old male, on 5 L nasal cannula, alternating with BiPAP 15/5 and 60% FiO2, comfortable in no apparent distress. HEAD: Normocephalic. EYES: Normal reaction of pupils, equal size. NOSE: Clear with pink turbinates. THROAT: No erythema or exudates. NECK: No masses, no JVD. CHEST: No chest wall deformity. LUNGS: Equal air entry with bilateral scattered rhonchi and crackles in the right base. CVS: S1 and S2 normal with no audible murmur, regular rhythm. ABDOMEN: No hepatosplenomegaly, normal bowel sounds, no guarding or rigidity. SPINE: No scoliosis or deformity SKIN: No rashes CENTRAL NERVOUS SYSTEM: Alert, tone is normal in all 4 extremities. EXTREMITIES: Scaly patches on the bottom of the feet. There is no peripheral edema. No clubbing, no cyanosis. Peripheral pulses are intact. - Labs CBC & Chem 7: 02/25/22 07:03 02/25/22 07:03 Labs: Abnormal Lab Results - Last 24 Hours (Table) 02/25/22 02/25/22 Range/Units 07:03 07:03 WBC 11.8 H (3.8-10.6) k/uL RBC 3.65 L (4.30-5.90) m/uL Hgb 11.2 L (13.0-17.5) gm/dL Hct 35.1 L (39.0-53.0) % Neutrophils # 9.1 H (1.3-7.7) k/uL Chloride 116 H (98-107) mmol/L Creatinine 0.57 L (0.66-1.25) mg/dL Calcium 7.9 L (8.4-10.2) mg/dL Microbiology - Last 24 Hours (Table) 02/21/22 15:40 Blood Culture - Preliminary Blood No Growth after 72 hours 02/21/22 15:40 Blood Culture Gram Stain - Final Blood Blood Culture - Final Coagulase Negative Staph Coagulase Negative Staph#2 02/21/22 15:58 Blood Culture Gram Stain - Final Blood Blood Culture - Final Coagulase Negative Staph Coagulase Negative Staph#2 Coagulase Negative Staph#3 Assessment and Plan Assessment: Recurrent seizure activity, and the patient noncompliant with epilepsy medications. MRI of the brain revealed right hippocampus and uncus restricted diffusion favoring sequela patient's seizures. Acute hypoxemic respiratory failure secondary to suspected aspiration pneumonia, with increasing right lower lobe collapse. History of chronic tobacco use and nicotine dependence. History of hypertension. History of chronic alcohol abuse. History of marijuana use. Chronic wounds, lower extremities. Plan: The patient was seen and evaluated Chest x-ray, medications and labs reviewed More awake and alert today Currently on 5 L nasal cannula Titrate the FiO2 as tolerated Continue Zosyn Add flutter valve, CPT to right chest Remains in the CIWA protocol Continued on Keppra We'll continue to follow I have personally seen and examined the patient, performed the documentation and the assessment and plan as written. Number of minutes spent on the visit: 10.
--- NOTE | 2022-02-25 11:48 | P.PCN ---
Date of Procedure: 02/25/22 Preoperative Diagnosis: Gross hematuria Postoperative Diagnosis: same Procedure(s) Performed: Catheter placement Description of Procedure: Patient penis was prepped and draped sterilely. A 16-Thai coud catheter was placed, minimal resistance was met at the prostate and otherwise catheter was placed without difficulties. Approximately 30 mL of concentrated urine was obtained. Balloon was inflated with 10 mL's. Patient tolerated procedure well. Catheter can be removed when no longer needed by the primary
--- NOTE | 2022-02-25 12:59 | P.PN ---
Subjective Progress Note Date: 02/23/22 Patient is a 61-year-old male with a known history of seizure disorder, currently with a smoker and current alcohol abuse and currently not on any antiepileptic drugs was brought to ER by ambulance due to seizures.. Patient was also having chronic foot wounds and is on follow-up with wound care center. Patient is also noncompliant with follow-up and medications. Apparently patient had 3 episodes of seizures within an hour and has been acting differently. Patient's parents called EMS. Upon arrival to the ER patient was having leftward gaze deviation and was actively seizing. Patient was given 5 mg of IV Versed and seizure stopped. Patient was postictal. Patient is still drowsy and lethargic and unable to provide history. CT head and cervical spine showed no acute intracranial process. Nonspecific white matter changes likely secondary to chronic small vessel ischemic disease. No evidence of cervical spine fracture. Mild COPD changes with intralobular septal thickening and patchy groundglass opacities within the bilateral upper lobes concerning for infectious/infectious inflammatory process. Chest x-ray showed multifocal airspace opacities most pronounced on the left hilar region. Findings concerning for pneumonia. Foot x-ray showed no evidence of acute fracture. No osteomyelitis. Multifocal osteoarthrosis changes. EKG showed sinus tachycardia. Laboratory data showed WBC 18.6 hemoglobin 13.1 and lipase 471 2124 potassium 4.9 chloride 96 bicarb is 19 BUN 16 creatinine 0.66 and blood sugar is 2631 lactic acid 7.9 and albumin 2.9 serum alcohol level is less than 10 and influenza AB and RSV PCR and COVID-19 not detected. Patient is currently ER and requiring oxygen at 6 L via nasal cannula. 02/23/2022 Patient is in the select care unit. Remains on BiPAP today. Seems to be comfortable. Patient had EEG done yesterday showed abnormal EEG due to presence of possible low amplitude sharp repeating use in the right frontal temporal region. This may suggest underlying cortical irritability and tendency for seizures. No electrographic seizure was recorded. Patient is scheduled for MRI today. Patient is otherwise afebrile. Laboratory data showed WBC 21.1 hemoglobin 12.4 and platelets 331 sodium 138 potassium 4.8 chloride 107 bicarb is 22 BUN 7 creatinine 0.42 and albumin 2.6. Blood cultures showed coagulase-negative staph RES. Patient is being continued antibiotics in the form of Zosyn. Pulmonary and neurology is on board. Patient is Keppra IV. Current medications reviewed. Objective - Vital Signs Vital signs: Vital Signs Temp 97.6 F 02/23/22 12:00 Pulse 136 H 02/23/22 16:19 Resp 20 02/23/22 16:00 BP 114/65 02/23/22 16:00 Pulse Ox 96 02/23/22 16:00 FiO2 60 02/23/22 16:05 Intake & Output 02/23/22 02/23/22 02/24/22 06:59 18:59 06:59 Intake Total 100 Output Total 1000 Balance -900 Intake: Intake, IV Titration 100 Amount Piperacillin-Tazobactam 3 100 .375 gm In Sodium Chloride 0.9% 100 ml @ 25 mls/hr IVPB Q8HR [facility] Rx# :[id number] Oral 0 Output: Urine 1000 Straight 500 Other: Voiding Method Diaper Diaper - Exam PHYSICAL EXAMINATION: Patient is lying in the bed. Awake alert but lethargic and weak. On BiPAP. HEENT: Normocephalic. Neck is supple. Pupils reactive. Nostrils clear. Oral cavity is moist. Neck reveals no JVD, carotid bruits, or thyromegaly. CHEST EXAMINATION: Trachea is central. Symmetrical expansion. Bibasilar diminished sounds. Scattered crackles.. CARDIAC: Normal S1, S2 with no gallops. No murmurs ABDOMEN: Soft. Bowel sounds present. Nontender. No organomegaly. No abdominal bruits. Extremities: reveal no edema. Dry and scaly feet. No clubbing or cyanosis Neurologically awake, alert, oriented x1-2. No gross focal deficits noted Skin: No rash or skin lesions. Psychiatric: Coperative. Could not be assessed completely. Musculoskeletal: No joint swelling or deformity. - Labs CBC & Chem 7: 02/25/22 07:03 02/25/22 07:03 Labs: Abnormal Lab Results - Last 24 Hours (Table) 02/23/22 02/23/22 Range/Units 09:35 09:35 WBC 21.1 H (3.8-10.6) k/uL RBC 4.08 L (4.30-5.90) m/uL Hgb 12.4 L (13.0-17.5) gm/dL Hct 38.0 L (39.0-53.0) % Neutrophils # 17.5 H (1.3-7.7) k/uL Monocytes # 1.4 H (0-1.0) k/uL BUN 7 L (9-20) mg/dL Creatinine 0.52 L (0.66-1.25) mg/dL Total Protein 6.0 L (6.3-8.2) g/dL Albumin 2.6 L (3.5-5.0) g/dL Microbiology - Last 24 Hours (Table) 02/21/22 15:40 Blood Culture - Preliminary Blood No Growth after 48 hours 02/21/22 15:58 Blood Culture Gram Stain - Preliminary Blood Blood Culture - Preliminary Coagulase Negative Staph Coagulase Negative Staph#2 02/21/22 15:40 Blood Culture Gram Stain - Preliminary Blood Blood Culture - Preliminary Coagulase Negative Staph Coagulase Negative Staph#2 02/22/22 04:37 Urine Culture - Final Urine,Voided Assessment and Plan Assessment: Seizure disorder with recurrent seizures. Noncompliant with medications. Bilateral upper lobe pneumonia concerning for aspiration pneumonia. Sepsis secondary above Severe lactic acidosis 7.9 on admission Acute hypoxic respiratory failure 6 On BiPAP now. Hypovolemic hyponatremia Alcohol abuse History of marijuana use Ongoing nicotine addiction Coagulase-negative staph aureus bacteremia Hypertension Sinus tachycardia DVT prophylaxis Heparin subcu Chronic lower extremity skin changes/wounds. Plan: Patient is being current BiPAP. Patient was started on Keppra 1000 mg twice daily and continue with neurochecks and seizure and fall precautions. IV Ativan as needed for seizures. 20 to monitor for also withdrawal symptoms. Continue thiamine and multivitamins. Patient was given 1 dose of vancomycin. Continue with Zosyn and follow-up culture reports. Neurology, pulmonary and ID is on board. Time with Patient: Greater than 30
--- NOTE | 2022-02-25 13:06 | P.PN ---
Subjective Progress Note Date: 02/24/22 Patient is a 61-year-old male with a known history of seizure disorder, currently with a smoker and current alcohol abuse and currently not on any antiepileptic drugs was brought to ER by ambulance due to seizures.. Patient was also having chronic foot wounds and is on follow-up with wound care center. Patient is also noncompliant with follow-up and medications. Apparently patient had 3 episodes of seizures within an hour and has been acting differently. Patient's parents called EMS. Upon arrival to the ER patient was having leftward gaze deviation and was actively seizing. Patient was given 5 mg of IV Versed and seizure stopped. Patient was postictal. Patient is still drowsy and lethargic and unable to provide history. CT head and cervical spine showed no acute intracranial process. Nonspecific white matter changes likely secondary to chronic small vessel ischemic disease. No evidence of cervical spine fracture. Mild COPD changes with intralobular septal thickening and patchy groundglass opacities within the bilateral upper lobes concerning for infectious/infectious inflammatory process. Chest x-ray showed multifocal airspace opacities most pronounced on the left hilar region. Findings concerning for pneumonia. Foot x-ray showed no evidence of acute fracture. No osteomyelitis. Multifocal osteoarthrosis changes. EKG showed sinus tachycardia. Laboratory data showed WBC 18.6 hemoglobin 13.1 and lipase 471 2124 potassium 4.9 chloride 96 bicarb is 19 BUN 16 creatinine 0.66 and blood sugar is 2631 lactic acid 7.9 and albumin 2.9 serum alcohol level is less than 10 and influenza AB and RSV PCR and COVID-19 not detected. Patient is currently ER and requiring oxygen at 6 L via nasal cannula. 02/23/2022 Patient is in the select care unit. Remains on BiPAP today. Seems to be comfortable. Patient had EEG done yesterday showed abnormal EEG due to presence of possible low amplitude sharp repeating use in the right frontal temporal region. This may suggest underlying cortical irritability and tendency for seizures. No electrographic seizure was recorded. Patient is scheduled for MRI today. Patient is otherwise afebrile. Laboratory data showed WBC 21.1 hemoglobin 12.4 and platelets 331 sodium 138 potassium 4.8 chloride 107 bicarb is 22 BUN 7 creatinine 0.42 and albumin 2.6. Blood cultures showed coagulase-negative staph RES. Patient is being continued antibiotics in the form of Zosyn. Pulmonary and neurology is on board. Patient is Keppra IV. 02/24/2022 Patient is currently resting in bed. Awake alert and seems to be weak. BiPAP transition to oxygen via nasal cannula. Currently requiring 5 L. Patient is using BiPAP intermittently. Orders patient is medicated on IV Keppra and antibiotics in the form of Zosyn. Currently on alcohol withdrawal protocol. Patient has been afebrile. No cough of sputum production. No nausea vomiting abdominal pain or diarrhea. Laboratories show WBC trending down to 15.4 hemoglobin 11.1 and platelets 325 Sodium 139 potassium 3.8 chloride 108 bicarb is 27 BUN 9 and creatinine 0.75. Neurology and pulmonary is on board. MRI of the brain will be done today. Current medications reviewed. Objective - Vital Signs Vital signs: Vital Signs Temp 98.3 F 02/24/22 20:00 Pulse 104 H 02/24/22 21:05 Resp 22 02/24/22 20:00 BP 98/68 02/24/22 20:00 Pulse Ox 100 02/24/22 20:00 FiO2 60 02/24/22 20:56 Intake & Output 02/24/22 02/24/22 02/25/22 06:59 18:59 06:59 Intake Total 1200 200 Balance 1200 200 Intake: Intake, IV Titration 1200 200 Amount Piperacillin-Tazobactam 3 100 100 .375 gm In Sodium Chloride 0.9% 100 ml @ 25 mls/hr IVPB Q8HR [facility] Rx# :[id number] Sodium Chloride 0.9% 1, 1000 000 ml @ 100 mls/hr IV . Q10H [facility] Rx#:[id number] levETIRAcetam IV 1,000 mg 100 100 In Saline 1 100ml.bag @ 400 mls/hr IVPB Q12HR [facility] Rx#:[id number] Oral 0 Other: Voiding Method Diaper Diaper Diaper # Voids 2 1 - Exam PHYSICAL EXAMINATION: Patient is lying in the bed. Awake alert but lethargic and weak. On 5L NC. HEENT: Normocephalic. Neck is supple. Pupils reactive. Nostrils clear. Oral cavity is moist. Neck reveals no JVD, carotid bruits, or thyromegaly. CHEST EXAMINATION: Trachea is central. Symmetrical expansion. Bibasilar diminished sounds. Scattered crackles.. CARDIAC: Normal S1, S2 with no gallops. No murmurs ABDOMEN: Soft. Bowel sounds present. Nontender. No organomegaly. No abdominal bruits. Extremities: reveal no edema. Dry and scaly feet. No clubbing or cyanosis Neurologically awake, alert, oriented x3. No gross focal deficits noted Skin: No rash or skin lesions. Psychiatric: Coperative. Could not be assessed completely. Musculoskeletal: No joint swelling or deformity. - Labs CBC & Chem 7: 02/25/22 07:03 02/25/22 07:03 Labs: Abnormal Lab Results - Last 24 Hours (Table) 02/24/22 02/24/22 Range/Units 06:46 06:46 WBC 15.4 H (3.8-10.6) k/uL RBC 3.72 L (4.30-5.90) m/uL Hgb 11.1 L (13.0-17.5) gm/dL Hct 34.9 L (39.0-53.0) % Neutrophils # 12.7 H (1.3-7.7) k/uL Chloride 108 H (98-107) mmol/L Glucose 102 H (74-99) mg/dL Calcium 8.0 L (8.4-10.2) mg/dL Microbiology - Last 24 Hours (Table) 02/21/22 15:40 Blood Culture - Preliminary Blood No Growth after 72 hours 02/21/22 15:40 Blood Culture Gram Stain - Final Blood Blood Culture - Final Coagulase Negative Staph Coagulase Negative Staph#2 02/21/22 15:58 Blood Culture Gram Stain - Final Blood Blood Culture - Final Coagulase Negative Staph Coagulase Negative Staph#2 Coagulase Negative Staph#3 Assessment and Plan Assessment: Acute Seizure disorder with hx of recurrent seizures. Noncompliant with medications. Bilateral upper lobe pneumonia concerning for aspiration pneumonia. Sepsis secondary above Severe lactic acidosis 7.9 on admission Acute hypoxic respiratory failure was on BIPAP--5L. Hypovolemic hyponatremia Alcohol abuse History of marijuana use Ongoing nicotine addiction Coagulase-negative staph aureus bacteremia Hypertension Sinus tachycardia DVT prophylaxis Heparin subcu Chronic lower extremity skin changes/wounds. Plan: Patient is being current BiPAP-->5L NC. Patient was started on Keppra 1000 mg twice daily and continue with neurochecks and seizure and fall precautions. IV Ativan as needed for seizures. 20 to monitor for also withdrawal symptoms. Continue thiamine and multivitamins. Patient was given 1 dose of vancomycin. Continue with Zosyn and follow-up culture reports. Neurology, pulmonary and ID is on board. Time with Patient: Greater than 30
[2022-02-25] MEDS: ASPIRIN 81 MG PO SCH (13:33)
[2022-02-25] MEDS: THIAMINE 100 MG TAB PO SCH (13:33)
[2022-02-25] MEDS: METOPROLOL TARTRATE 25 MG TAB PO SCH ×2 (13:33→21:01)
[2022-02-25] MEDS: DEXTROSE 5%-0.45% NACL 1,000 ML IV SCH (13:35)
--- NOTE | 2022-02-25 14:21 | P.PN ---
Subjective Progress Note Date: 02/25/22 Principal diagnosis: Aspiration pneumonia Patient is a 61-year-old male with a past medical history significant for chronic on both abuse seizure disorder noncompliant with his seizure medication patient was brought into the ER with acute onset of seizure , patient did have elevated white count and evidence of multifocal infiltrating mostly in the left perihilar region concerning for possible aspiration pneumonia. On today's evaluation that is 02/25/2022, the patient remains to be afebrile, the patient is more awake and alert today patient is breathing comfortably on 5 L nasal cannula denies any chest pain or dyspnea cough no abdominal pain patient wants to drink and is asking for juice Objective - Vital Signs Vital signs: Vital Signs Temp 98 F 02/25/22 08:55 Pulse 130 H 02/25/22 12:33 Resp 20 02/25/22 08:55 BP 120/86 02/25/22 08:55 Pulse Ox 98 02/25/22 08:55 FiO2 60 02/25/22 03:41 Intake & Output 02/24/22 02/25/22 02/25/22 18:59 06:59 18:59 Intake Total 300 Output Total 300 Balance 300 -300 Intake: Intake, IV Titration 300 Amount Piperacillin-Tazobactam 3 200 .375 gm In Sodium Chloride 0.9% 100 ml @ 25 mls/hr IVPB Q8HR [facility] Rx# :[id number] levETIRAcetam IV 1,000 mg 100 In Saline 1 100ml.bag @ 400 mls/hr IVPB Q12HR [facility] Rx#:[id number] Oral 0 Output: Urine 300 Other: Voiding Method Diaper Diaper Diaper # Voids 1 - Exam GENERAL DESCRIPTION: Middle-aged male lying in bed in no distress RESPIRATORY SYSTEM: Unlabored breathing , decreased breath sounds at bases HEART: S1 S2 regular rate and rhythm , ABDOMEN: Soft , no tenderness EXTREMITIES: No edema feet - Labs CBC & Chem 7: 02/25/22 07:03 02/25/22 07:03 Labs: Abnormal Lab Results - Last 24 Hours (Table) 02/25/22 02/25/22 Range/Units 07:03 07:03 WBC 11.8 H (3.8-10.6) k/uL RBC 3.65 L (4.30-5.90) m/uL Hgb 11.2 L (13.0-17.5) gm/dL Hct 35.1 L (39.0-53.0) % Neutrophils # 9.1 H (1.3-7.7) k/uL Chloride 116 H (98-107) mmol/L Creatinine 0.57 L (0.66-1.25) mg/dL Calcium 7.9 L (8.4-10.2) mg/dL Microbiology - Last 24 Hours (Table) 02/21/22 15:40 Blood Culture - Preliminary Blood No Growth after 72 hours 02/21/22 15:40 Blood Culture Gram Stain - Final Blood Blood Culture - Final Coagulase Negative Staph Coagulase Negative Staph#2 02/21/22 15:58 Blood Culture Gram Stain - Final Blood Blood Culture - Final Coagulase Negative Staph Coagulase Negative Staph#2 Coagulase Negative Staph#3 Assessment and Plan (1) Pneumonia Current Visit: Yes Status: Acute Code(s): J18.9 - PNEUMONIA, UNSPECIFIED ORGANISM SNOMED Code(s): 511194420 Plan: 1patient presented to hospital with active seizures in this patient now with evidence of multifocal pneumonia mostly left perihilar region did have elevated vital concerning for pneumonia of aspiration etiology. 2positive blood culture finalized as staph epi likely skin contamination. 3patient has shown clinical improvement and will continue with the Zosyn. Will try to obtain a sputum to narrow down on antibiotics and monitor clinical course closely Time with Patient: Less than 30
--- NOTE | 2022-02-25 15:13 | P.PN ---
Subjective Progress Note Date: 02/25/22 Patient is a 61-year-old male with a known history of seizure disorder, currently with a smoker and current alcohol abuse and currently not on any antiepileptic drugs was brought to ER by ambulance due to seizures.. Patient was also having chronic foot wounds and is on follow-up with wound care center. Patient is also noncompliant with follow-up and medications. Apparently patient had 3 episodes of seizures within an hour and has been acting differently. Patient's parents called EMS. Upon arrival to the ER patient was having leftward gaze deviation and was actively seizing. Patient was given 5 mg of IV Versed and seizure stopped. Patient was postictal. Patient is still drowsy and lethargic and unable to provide history. CT head and cervical spine showed no acute intracranial process. Nonspecific white matter changes likely secondary to chronic small vessel ischemic disease. No evidence of cervical spine fracture. Mild COPD changes with intralobular septal thickening and patchy groundglass opacities within the bilateral upper lobes concerning for infectious/infectious inflammatory process. Chest x-ray showed multifocal airspace opacities most pronounced on the left hilar region. Findings concerning for pneumonia. Foot x-ray showed no evidence of acute fracture. No osteomyelitis. Multifocal osteoarthrosis changes. EKG showed sinus tachycardia. Laboratory data showed WBC 18.6 hemoglobin 13.1 and lipase 471 2124 potassium 4.9 chloride 96 bicarb is 19 BUN 16 creatinine 0.66 and blood sugar is 2631 lactic acid 7.9 and albumin 2.9 serum alcohol level is less than 10 and influenza AB and RSV PCR and COVID-19 not detected. Patient is currently ER and requiring oxygen at 6 L via nasal cannula. 02/23/2022 Patient is in the select care unit. Remains on BiPAP today. Seems to be comfortable. Patient had EEG done yesterday showed abnormal EEG due to presence of possible low amplitude sharp repeating use in the right frontal temporal region. This may suggest underlying cortical irritability and tendency for seizures. No electrographic seizure was recorded. Patient is scheduled for MRI today. Patient is otherwise afebrile. Laboratory data showed WBC 21.1 hemoglobin 12.4 and platelets 331 sodium 138 potassium 4.8 chloride 107 bicarb is 22 BUN 7 creatinine 0.42 and albumin 2.6. Blood cultures showed coagulase-negative staph RES. Patient is being continued antibiotics in the form of Zosyn. Pulmonary and neurology is on board. Patient is Keppra IV. 02/24/2022 Patient is currently resting in bed. Awake alert and seems to be weak. BiPAP transition to oxygen via nasal cannula. Currently requiring 5 L. Patient is using BiPAP intermittently. Orders patient is medicated on IV Keppra and antibiotics in the form of Zosyn. Currently on alcohol withdrawal protocol. Patient has been afebrile. No cough of sputum production. No nausea vomiting abdominal pain or diarrhea. Laboratories show WBC trending down to 15.4 hemoglobin 11.1 and platelets 325 Sodium 139 potassium 3.8 chloride 108 bicarb is 27 BUN 9 and creatinine 0.75. Neurology and pulmonary is on board. MRI of the brain will be done today. 02/25/2022 Patient monitored on stepdown unit resting in bed. Currently awake and alert asking to eat. He failed swallow exam and currently NPO, speech will continue to follow and possibly undergo modified barium swallow which won't be completed until sunday. Continues on IV zosyn for aspiration pneumonia and continues to require supplemental oxygen. Chest xray this morning showing worsening scattered airspace opacities with new right pleural effusion. Urology inserted indwelling catheter today and patient had about 30 mLs of urine on return. Brain MRI completed. Scheduled for lumbar puncture. Carotid doppler showing less than 50% stenosis bilateral carotid bifurcations. Maintained on IV keppra for now and also IV metroplol Q6 hour, heart rate currently running in the 130s. Chloride increasing up to 116 and IV fluids have been changed to D5. White count improving. Kidney function stable. Review of Systems Constitutional: Denied any fatigue denied any fever. Cardio vascular: denied any chest pain, palpitations Gastrointestinal: denied any nausea, vomiting, diarrhea Pulmonary: Denied any shortness of breath cough Neurologic denied any new focal deficits All inpatient medications were reviewed and appropriate changes in these medications as dictated in the interval history and assessment and plan. PHYSICAL EXAMINATION: GENERAL: The patient is alert and oriented x2, not in any acute distress. Well developed, well nourished. on 5l nasal cannula. HEENT: Pupils are round and equally reacting to light. EOMI. No scleral icterus. No conjunctival pallor. Normocephalic, atraumatic. No pharyngeal erythema. No thyromegaly. CARDIOVASCULAR: S1 and S2 present. No murmurs, rubs, or gallops. PULMONARY: Coarse scattered rhonchi ABDOMEN: Soft, nontender, nondistended, normoactive bowel sounds. No palpable organomegaly. MUSCULOSKELETAL: No joint swelling or deformity. EXTREMITIES: No cyanosis, clubbing, or pedal edema. NEUROLOGICAL: Gross neurological examination did not reveal any focal deficits. SKIN: No rashes. Assessment and Plan Assessment Acute Seizure disorder with hx of recurrent seizures. Noncompliant with medications. Bilateral upper lobe pneumonia concerning for aspiration pneumonia. Sepsis secondary above Severe lactic acidosis 7.9 on admission Acute hypoxic respiratory failure was on BIPAP--5L. Hypovolemic hyponatremia Alcohol abuse History of marijuana use Ongoing nicotine addiction Coagulase-negative staph aureus bacteremia likely contamination Hypertension Sinus tachycardia Chronic lower extremity skin changes/wounds. DVT prophylaxis Heparin subcu GI prophylaxis Full Code Plan: Currently maintained on oxygen support 5L nasal cannula Patient was started on Keppra 1000 mg twice daily and continue with neurochecks and seizure and fall precautions. IV Ativan as needed for seizures. Continues on CIWA, monitor for alcohol withdrawal symptoms. Continue thiamine and multivitamins. Patient was given 1 dose of vancomycin. Continue with Zosyn and follow-up culture reports. Continue with NPO pending further recommendations from speech therapy possible barium swallow Continue IV fluids, IV lopressor Neurology, pulmonary and ID is on board. The impression and plan of care has been dictated by Bridgett Wilcox, Nurse Practitioner as directed. Dr. Asha MD I have performed a history and physical examination and medical decision making of this patient, discussed the same with the dictator, and agree with the dictators assessment and plan as written, documented as a scribe. Based on total visit time, I have performed more than 50% of this visit. Objective - Vital Signs Vital signs: Vital Signs Temp 98 F 02/25/22 08:55 Pulse 133 H 02/25/22 08:55 Resp 20 02/25/22 08:55 BP 120/86 02/25/22 08:55 Pulse Ox 98 02/25/22 08:55 FiO2 60 02/25/22 03:41 Intake & Output 02/24/22 02/25/22 02/25/22 18:59 06:59 18:59 Intake Total 300 Output Total 300 Balance 300 -300 Intake: Intake, IV Titration 300 Amount Piperacillin-Tazobactam 3 200 .375 gm In Sodium Chloride 0.9% 100 ml @ 25 mls/hr IVPB Q8HR [facility] Rx# :[id number] levETIRAcetam IV 1,000 mg 100 In Saline 1 100ml.bag @ 400 mls/hr IVPB Q12HR [facility] Rx#:[id number] Oral 0 Output: Urine 300 Other: Voiding Method Diaper Diaper Diaper # Voids 1 - Labs CBC & Chem 7: 02/25/22 07:03 02/25/22 07:03 Labs: Abnormal Lab Results - Last 24 Hours (Table) 02/25/22 02/25/22 Range/Units 07:03 07:03 WBC 11.8 H (3.8-10.6) k/uL RBC 3.65 L (4.30-5.90) m/uL Hgb 11.2 L (13.0-17.5) gm/dL Hct 35.1 L (39.0-53.0) % Neutrophils # 9.1 H (1.3-7.7) k/uL Chloride 116 H (98-107) mmol/L Creatinine 0.57 L (0.66-1.25) mg/dL Calcium 7.9 L (8.4-10.2) mg/dL Microbiology - Last 24 Hours (Table) 02/21/22 15:40 Blood Culture - Preliminary Blood No Growth after 72 hours 02/21/22 15:40 Blood Culture Gram Stain - Final Blood Blood Culture - Final Coagulase Negative Staph Coagulase Negative Staph#2 02/21/22 15:58 Blood Culture Gram Stain - Final Blood Blood Culture - Final Coagulase Negative Staph Coagulase Negative Staph#2 Coagulase Negative Staph#3 Assessment and Plan Time with Patient: Less than 30
[2022-02-25] MEDS: SODIUM CHLORIDE 0.9% 1,000 ML IV SCH (15:20)
--- NOTE | 2022-02-25 23:41 | P.PN ---
Subjective Progress Note Date: 02/25/22 Patient was seen for a follow-up. Patient is laying comfortably in the bed. Patient is much more alert and awake. Speech is much more clear. Patient denies any headache or dizziness or any visual disturbance at this time. Patient admits to drinking only 1 or 2 beers per day. Denies excessive alcohol ism. Objective - Vital Signs Vital signs: Vital Signs Temp 97.6 F 02/25/22 13:15 Pulse 134 H 02/25/22 13:15 Resp 20 02/25/22 13:15 BP 117/82 02/25/22 13:15 Pulse Ox 97 02/25/22 13:15 FiO2 60 02/25/22 03:41 Intake & Output 02/24/22 02/25/22 02/25/22 18:59 06:59 18:59 Intake Total 300 Output Total 300 Balance 300 -300 Intake: Intake, IV Titration 300 Amount Piperacillin-Tazobactam 3 200 .375 gm In Sodium Chloride 0.9% 100 ml @ 25 mls/hr IVPB Q8HR [facility] Rx# :[id number] levETIRAcetam IV 1,000 mg 100 In Saline 1 100ml.bag @ 400 mls/hr IVPB Q12HR [facility] Rx#:[id number] Oral 0 Output: Urine 300 Other: Voiding Method Diaper Diaper Diaper # Voids 1 1 - Exam Patient is alert and awake, appears much more normal mentation. Patient knows it is January and states the year is 1921. He knows he is in [facility] and name of the current president Mr. King. Speech is slightly hoarse. No aphasia or dysarthria. Cranial nerve shows visual wang are full. Face is symmetric and tongue protrudes the midline. Muscle strength is normal in the arms and legs except hip flexion which is 5- bilaterally. Left shoulder is weak related to arthritic change. - Labs CBC & Chem 7: 02/25/22 07:03 02/25/22 07:03 Labs: Abnormal Lab Results - Last 24 Hours (Table) 02/25/22 02/25/22 Range/Units 07:03 07:03 WBC 11.8 H (3.8-10.6) k/uL RBC 3.65 L (4.30-5.90) m/uL Hgb 11.2 L (13.0-17.5) gm/dL Hct 35.1 L (39.0-53.0) % Neutrophils # 9.1 H (1.3-7.7) k/uL Chloride 116 H (98-107) mmol/L Creatinine 0.57 L (0.66-1.25) mg/dL Calcium 7.9 L (8.4-10.2) mg/dL Microbiology - Last 24 Hours (Table) 02/21/22 15:40 Blood Culture - Preliminary Blood No Growth after 72 hours 02/21/22 15:40 Blood Culture Gram Stain - Final Blood Blood Culture - Final Coagulase Negative Staph Coagulase Negative Staph#2 02/21/22 15:58 Blood Culture Gram Stain - Final Blood Blood Culture - Final Coagulase Negative Staph Coagulase Negative Staph#2 Coagulase Negative Staph#3 Assessment and Plan Assessment: * Seizure disorder, came with recurrent seizures (3). Seizures aborted with Versed 5 mg IV push. * Abnormal brain MRI, with abnormal signal with restricted diffusion in the right hippocampus and uncus. Probably favors sequela of patient's seizure. * History of alcoholism. Patient at present denies any regular alcoholism. He states that he just drinks 1-2 beers per night. Patient also takes Klonopin regularly, denies running out of it. No obvious cause/provoking factor identified. * Pneumonia * Bacteremia with staph coagulase-negative, felt to be contaminant-per ID. * Feet ulcers * Tobacco use * Marijuana use * Coronary artery disease Plan: * Continue Keppra. Patient has received a loading dose of Keppra 2000 mg in the ER, and will be maintained on Keppra 1000 mg twice a day. Will switch from IV to oral form. * EEG was abnormal due to presence of possible low amplitude sharp-appearing waves in the right frontotemporal region. This may suggest underlying cortical irritability and tendency for seizures. No electrographic seizure was recorded. * MRI of the brain without contrast revealed right hippocampus and uncus restri cted diffusion is favored to represent sequela of patient's seizure. Other differential includes mesial temporal sclerosis, however it is felt to be less likely given no significant atrophic changes. Other etiologies include limbic encephalitis. Short-term follow-up MRI is recommended. I personally reviewed MRI, agree with the findings. * Start aspirin 81 mg daily, as there is abnormal signal on DWI in the right hippocampus. * 2-D echo from 03/24/2021 revealed normal left ventricular size, moderate concentric LVH. EF is mild to moderately impaired 40-45%. Normal left atrial size. Mild aortic valve sclerosis with trace to mild AR. * Carotid Doppler revealed less than 50% stenosis of bilateral carotid bifurcation. Antegrade flow right vertebral artery. Left vertebral unable to visualize. * Lumbar puncture, rule out encephalitis (less likely with improving mentation). * Check NMDA antibodies. * For pneumonia, patient currently on Zosyn. ID following. * No driving, climbing ladders, operating dangerous machineries or swimming. * Recommended abstinence from alcoholism, marijuana and tobacco use.
[2022-02-26] MEDS: PIPERACILLIN-TAZOBACTAM 3.375 GM in SODIUM CHLORIDE 0.9% 100 ML IVPB SCH ×4 (00:42→23:47)
[2022-02-26] MEDS: IPRATROPIUM-ALBUTEROL 3 ML NEB INHALATION SCH ×5 (03:49→20:21)
[2022-02-26] MEDS: METOPROLOL TARTRATE 5 MG/5 ML VIAL IVP PRN ×3 (06:15→20:02)
[2022-02-26] MEDS: DEXTROSE 5%-0.45% NACL 1,000 ML IV SCH ×2 (06:15→15:50)
[2022-02-26] MEDS: SODIUM CHLORIDE 0.9% 1,000 ML IV SCH (06:23)
[2022-02-26] MEDS: TAMSULOSIN 0.4 MG CAP.ER.24H PO SCH (08:56)
[2022-02-26] MEDS: METOPROLOL TARTRATE 25 MG TAB PO SCH ×2 (08:56→20:51)
[2022-02-26] MEDS: FAMOTIDINE 20 MG/2 ML VIAL IV SCH (08:56)
[2022-02-26] MEDS: ASPIRIN 81 MG PO SCH (08:56)
[2022-02-26] MEDS: THIAMINE 100 MG TAB PO SCH (08:56)
[2022-02-26] MEDS ORDERED: levETIRAcetam 500 MG TAB PO SCH (09:00)
[2022-02-26] MEDS: DEXTROSE 5% IN WATER 1,000 ML IV SCH (09:07)
[2022-02-26] MEDS: levETIRAcetam IV 1,000 MG in SALINE 1 100ML.BAG IVPB SCH ×2 (09:07→20:59)
[2022-02-26] MEDS: HEPARIN SODIUM,PORCINE/PF 5,000 UNIT/0.5 ML SYRINGE SQ SCH ×3 (09:08→23:47)
--- NOTE | 2022-02-26 10:40 | P.PN ---
Subjective Progress Note Date: 02/26/22 61-year-old male who presents to the emergency room on February 21, via EMS, for possible seizure. The patient has a history of chronic alcohol abuse, and chronic foot wounds. He apparently does have a history of seizure disorder, and is apparently noncompliant with his seizure medications. He apparently presented to the emergency department with acute onset of seizure, earlier on the day of admission, which was February 21. He apparently had 3 different seizure episodes within one hour. When EMS arrived, he apparently was actively seizing. They administered 5 mg of IV Versed, and the seizure stopped. The patient was apparently postictal after that. Since being in the emergency department, the patient has been improving neurologically. He was on BiPAP for a short period of time with settings of 15/5 and 60%, up until about 3:00 in the morning. Now he is on between 6-7 L of nasal oxygen. He is getting saline at keep vein open. Current vital signs include sinus tachycardia with a rate of 138, blood pressure 116/85 respiratory rate 22 and saturations 90-92%. White count 26.4, hemoglobin 13.5, hematocrit 43.6, and platelet count was normal. Most recent blood gases show pO2 71, pCO2 47, and a pH is 7.26. That was on BiPAP at 60%. Troponin was 0.030. Initial pH was 7.12. Sodium 124, potassium 4.9, chlorides 96, CO2 19, BUN 6, creatinine 0.66. Urine screen was positive f or benzodiazepines, and marijuana. Chest x-ray shows patchy airspace disease in the left hilar region, consistent with possible aspiration pneumonia. The patient is seen today 02/23/2022 in follow-up on the selective care unit. He is currently resting fairly comfortably in bed. Somewhat lethargic. He is on BiPAP 15/5 and 60% FiO2 with O2 saturations in the 90s. EEG revealed possible low amplitude sharp appearing waves in the right frontotemporal region. This may suggest underlying cortical irritability intensive for seizures. No seizures were recorded. Blood cultures positive for coag-negative staph. Urine culture negative. White count 21.1. Hemoglobin 12.4. Platelets 331. Sodium 138. Potassium 4.8. BUN 7. Creatinine 0.52. AST 39. ALT 18. He is continued on bronchodilators and Zosyn. Heparin for DVT prophylaxis. Remains in the CIWA protocol. Remains on Keppra. The patient seen today 02/24/2022 in follow-up on the selective care unit. He is currently sitting up in bed. More awake and arousable. Currently on 5 L high flow nasal cannula. He has been alternating with BiPAP 15/5 and 60% FiO2. He has normal saline at 50 MLS per hour. Maintained on Zosyn. Bronchodilators. Heparin for DVT prophylaxis. No seizure activity. Remains in CIWA protocol. Last Ativan requirement at 4 AM this morning. The cultures positive for coag- negative staph. White count 15.4. Hemoglobin 11.1. Platelets 325. Sodium 139. Potassium 3.8. BUN 9. Creatinine 0.75. The patient is seen today 02/25/2022 in follow-up on the selective care unit. He is more awake and alert today. Denies any worsening shortness of breath, cough or congestion. Currently maintaining O2 saturations in the 90s on 5 L/m per nasal cannula. He had initially been on BiPAP 5 over 5 and 60% FiO2. Chest x-ray revealed worsening scattered airspace opacities with a new right lower lobe collapse. MRI of the brain revealed right hippocampus and fungus restricted diffusion favoring sequela patient seizure. Generalized atrophy changes and mild nonspecific white matter changes secondary to small vessel ischemic disease. Moderate paranasal sinus disease. Carotid Dopplers revealed less than 50% stenosis bilaterally. Blood cultures revealed coag-negative staph. White count 11.8. Hemoglobin 11.2. Sodium 143. Potassium 3.9. BUN 12. Creatinine 0.57. He remains on DuoNeb inhalations. Antibiotics in the form of Zosyn. Heparin for DVT prophylaxis. Remains on Keppra. Normal saline at 100 ML's per hour. No seizure activity. The patient is seen today 02/26/2022 in follow-up on the selective care unit. He is currently resting comfortably in bed. Awake and alert in no acute distress. He is maintaining O2 saturations in the 90s on 5 L/m per nasal cannula. D545 at 75 ML's per hour. He is continued on bronchodilators. Continue on heparin for DVT prophylaxis. Remains on antibiotics in the form of Zosyn. Follow-up blood cultures revealing no growth. Urine culture revealed no growth. No seizure activity. Objective - Vital Signs Vital signs: Vital Signs Temp 97.4 F L 02/26/22 09:05 Pulse 109 H 02/26/22 09:05 Resp 16 02/26/22 09:05 BP 119/83 02/26/22 09:05 Pulse Ox 99 02/26/22 09:05 FiO2 60 02/25/22 03:41 Intake & Output 02/25/22 02/26/22 02/26/22 18:59 06:59 18:59 Output Total 330 100 Balance -330 -100 Output: Urine 330 100 Straight 30 Other: Voiding Method Diaper Indwelling Catheter Indwelling Catheter # Voids 1 # Bowel Movements 1 - Exam GENERAL EXAM: Awake, alert, 61-year-old male, on 5 L nasal cannula, comfortable in no apparent distress. HEAD: Normocephalic. EYES: Normal reaction of pupils, equal size. NOSE: Clear with pink turbinates. THROAT: No erythema or exudates. NECK: No masses, no JVD. CHEST: No chest wall deformity. LUNGS: Equal air entry with bilateral scattered rhonchi and crackles in the right base. CVS: S1 and S2 normal with no audible murmur, regular rhythm. ABDOMEN: No hepatosplenomegaly, normal bowel sounds, no guarding or rigidity. SPINE: No scoliosis or deformity SKIN: No rashes CENTRAL NERVOUS SYSTEM: Alert, tone is normal in all 4 extremities. EXTREMITIES: Scaly patches on the bottom of the feet. There is no peripheral edema. No clubbing, no cyanosis. Peripheral pulses are intact. - Labs CBC & Chem 7: 02/25/22 07:03 02/25/22 07:03 Labs: Microbiology - Last 24 Hours (Table) 02/25/22 07:03 Blood Culture - Preliminary Blood No Growth after 24 hours 02/21/22 15:40 Blood Culture - Preliminary Blood No Growth after 96 hours Assessment and Plan Assessment: Recurrent seizure activity, and the patient noncompliant with epilepsy medications. MRI of the brain revealed right hippocampus and uncus restricted diffusion favoring sequela of patient's seizures. Acute hypoxemic respiratory failure secondary to suspected aspiration pneumonia, with increasing right lower lobe collapse. History of chronic tobacco use and nicotine dependence. History of hypertension. History of chronic alcohol abuse. History of marijuana use. Chronic wounds, lower extremities. Plan: The patient was seen and evaluated More awake and alert today Currently on 5 L nasal cannula Titrate the FiO2 as tolerated Continue flutter valve, CPT to right chest Remains in the CIWA protocol Continued on Keppra No seizures noted We'll continue to follow I have personally seen and examined the patient, performed the documentation and the assessment and plan as written. Number of minutes spent on the visit: 10.
--- NOTE | 2022-02-26 13:54 | P.PN ---
Subjective Progress Note Date: 02/26/22 Patient is a 61-year-old male with a known history of seizure disorder, currently with a smoker and current alcohol abuse and currently not on any antiepileptic drugs was brought to ER by ambulance due to seizures.. Patient was also having chronic foot wounds and is on follow-up with wound care center. Patient is also noncompliant with follow-up and medications. Apparently patient had 3 episodes of seizures within an hour and has been acting differently. Patient's parents called EMS. Upon arrival to the ER patient was having leftward gaze deviation and was actively seizing. Patient was given 5 mg of IV Versed and seizure stopped. Patient was postictal. Patient is still drowsy and lethargic and unable to provide history. CT head and cervical spine showed no acute intracranial process. Nonspecific white matter changes likely secondary to chronic small vessel ischemic disease. No evidence of cervical spine fracture. Mild COPD changes with intralobular septal thickening and patchy groundglass opacities within the bilateral upper lobes concerning for infectious/infectious inflammatory process. Chest x-ray showed multifocal airspace opacities most pronounced on the left hilar region. Findings concerning for pneumonia. Foot x-ray showed no evidence of acute fracture. No osteomyelitis. Multifocal osteoarthrosis changes. EKG showed sinus tachycardia. Laboratory data showed WBC 18.6 hemoglobin 13.1 and lipase 471 2124 potassium 4.9 chloride 96 bicarb is 19 BUN 16 creatinine 0.66 and blood sugar is 2631 lactic acid 7.9 and albumin 2.9 serum alcohol level is less than 10 and influenza AB and RSV PCR and COVID-19 not detected. Patient is currently ER and requiring oxygen at 6 L via nasal cannula. 02/23/2022 Patient is in the select care unit. Remains on BiPAP today. Seems to be comfortable. Patient had EEG done yesterday showed abnormal EEG due to presence of possible low amplitude sharp repeating use in the right frontal temporal region. This may suggest underlying cortical irritability and tendency for seizures. No electrographic seizure was recorded. Patient is scheduled for MRI today. Patient is otherwise afebrile. Laboratory data showed WBC 21.1 hemoglobin 12.4 and platelets 331 sodium 138 potassium 4.8 chloride 107 bicarb is 22 BUN 7 creatinine 0.42 and albumin 2.6. Blood cultures showed coagulase-negative staph RES. Patient is being continued antibiotics in the form of Zosyn. Pulmonary and neurology is on board. Patient is Keppra IV. 02/24/2022 Patient is currently resting in bed. Awake alert and seems to be weak. BiPAP transition to oxygen via nasal cannula. Currently requiring 5 L. Patient is using BiPAP intermittently. Orders patient is medicated on IV Keppra and antibiotics in the form of Zosyn. Currently on alcohol withdrawal protocol. Patient has been afebrile. No cough of sputum production. No nausea vomiting abdominal pain or diarrhea. Laboratories show WBC trending down to 15.4 hemoglobin 11.1 and platelets 325 Sodium 139 potassium 3.8 chloride 108 bicarb is 27 BUN 9 and creatinine 0.75. Neurology and pulmonary is on board. MRI of the brain will be done today. 02/25/2022 Patient monitored on stepdown unit resting in bed. Currently awake and alert asking to eat. He failed swallow exam and currently NPO, speech will continue to follow and possibly undergo modified barium swallow which won't be completed until sunday. Continues on IV zosyn for aspiration pneumonia and continues to require supplemental oxygen. Chest xray this morning showing worsening scattered airspace opacities with new right pleural effusion. Urology inserted indwelling catheter today and patient had about 30 mLs of urine on return. Brain MRI completed. Scheduled for lumbar puncture. Carotid doppler showing less than 50% stenosis bilateral carotid bifurcations. Maintained on IV keppra for now and also IV metroplol Q6 hour, heart rate currently running in the 130s. Chloride increasing up to 116 and IV fluids have been changed to D5. White count improving. Kidney function stable. 02/26/2021 Patient monitored on stepdown unit. Continues on 5L of oxygen and is being treated for aspiration pneumonia maintained on IV zosyn. He continues to be strict NPO and plan for re-evaluation by speech therapy and modified barium swallow tomorrow. He is more awake and alert and wondering when he can discharge home. Discussed in detail with patient he is high risk for aspiration and likely will need PEG tube placement pending speech therapy recommendations. No further seizure activity noted, continues on IV Levetiracetem. Continues on D545 at 75 mls. Review of Systems Constitutional: Denied any fatigue denied any fever. Cardio vascular: denied any chest pain, palpitations Gastrointestinal: denied any nausea, vomiting, diarrhea Pulmonary: Denied any shortness of breath cough Neurologic denied any new focal deficits All inpatient medications were reviewed and appropriate changes in these medications as dictated in the interval history and assessment and plan. PHYSICAL EXAMINATION: GENERAL: The patient is alert and oriented x2, not in any acute distress. Well developed, well nourished. on 5l nasal cannula. HEENT: Pupils are round and equally reacting to light. EOMI. No scleral icterus. No conjunctival pallor. Normocephalic, atraumatic. No pharyngeal erythema. No thyromegaly. CARDIOVASCULAR: S1 and S2 present. No murmurs, rubs, or gallops. PULMONARY: Coarse scattered rhonchi ABDOMEN: Soft, nontender, nondistended, normoactive bowel sounds. No palpable organomegaly. MUSCULOSKELETAL: No joint swelling or deformity. EXTREMITIES: No cyanosis, clubbing, or pedal edema. NEUROLOGICAL: Gross neurological examination did not reveal any focal deficits. SKIN: No rashes. Assessment and Plan Assessment Acute Seizure disorder with hx of recurrent seizures. Noncompliant with medications. Bilateral upper lobe pneumonia concerning for aspiration pneumonia Sepsis secondary above Severe lactic acidosis 7.9 on admission Acute hypoxemic respiratory failure was on BIPAP currently requiring 5L nasal cannula Hypovolemic hyponatremia Alcohol abuse History of marijuana use Ongoing nicotine addiction Coagulase-negative staph aureus bacteremia likely contamination Hypertension Sinus tachycardia Chronic lower extremity skin changes/wounds. DVT prophylaxis Heparin subcu GI prophylaxis Full Code Plan: Currently maintained on oxygen support 5L nasal cannula Patient was started on Keppra 1000 mg twice daily and continue with neurochecks and seizure and fall precautions. IV Ativan as needed for seizures. Continues on CIWA, monitor for alcohol withdrawal symptoms. Continue thiamine and multivitamins. Patient was given 1 dose of vancomycin. Continue with Zosyn and follow-up culture reports. Continue with NPO pending further recommendations from speech therapy possible barium swallow Maintain aspiration precautions with head of bed up 30* at all times. Continue IV fluids, IV lopressor Neurology, pulmonary and ID is on board. PT and OT consultation in place. The impression and plan of care has been dictated by Bridgett Wilcox Nurse Practitioner as directed. Dr. Asha MD I have performed a history and physical examination and medical decision making of this patient, discussed the same with the dictator, and agree with the dictators assessment and plan as written, documented as a scribe. Based on total visit time, I have performed more than 50% of this visit. Objective - Vital Signs Vital signs: Vital Signs Temp 97.4 F L 02/26/22 09:05 Pulse 111 H 02/26/22 11:48 Resp 22 02/26/22 11:48 BP 119/84 02/26/22 11:10 Pulse Ox 95 02/26/22 11:55 FiO2 40 02/26/22 11:37 Intake & Output 02/25/22 02/26/22 02/26/22 18:59 06:59 18:59 Output Total 330 100 Balance -330 -100 Output: Urine 330 100 Straight 30 Other: Voiding Method Diaper Indwelling Catheter Indwelling Catheter # Voids 1 # Bowel Movements 1 - Labs CBC & Chem 7: 02/25/22 07:03 02/25/22 07:03 Labs: Microbiology - Last 24 Hours (Table) 02/25/22 07:03 Blood Culture - Preliminary Blood No Growth after 24 hours 02/21/22 15:40 Blood Culture - Preliminary Blood No Growth after 96 hours Assessment and Plan Time with Patient: Less than 30
--- NOTE | 2022-02-26 15:00 | P.PN ---
Subjective Progress Note Date: 02/26/22 Patient was seen for a follow-up. Patient is laying comfortably in the bed. Patient is using BiPAP today. Patient is much more alert and awake. Speech is much more clear. Patient denies any headache or dizziness or any visual disturbance at this time. Patient admits to drinking only 1 or 2 beers per day. Denies excessive alcoholism. Objective - Vital Signs Vital signs: Vital Signs Temp 97.4 F L 02/26/22 09:05 Pulse 111 H 02/26/22 11:48 Resp 22 02/26/22 11:48 BP 119/84 02/26/22 11:10 Pulse Ox 95 02/26/22 11:55 FiO2 40 02/26/22 11:37 Intake & Output 02/25/22 02/26/22 02/26/22 18:59 06:59 18:59 Output Total 330 100 Balance -330 -100 Output: Urine 330 100 Straight 30 Other: Voiding Method Diaper Indwelling Catheter Indwelling Catheter # Voids 1 # Bowel Movements 1 - Exam Patient is alert and awake, appears much more normal mentation. Patient knows it is January and states the year is 1921. He knows he is in [facility] and name of the current president Mr. King. Speech is slightly hoarse. No aphasia or dysarthria. Cranial nerve shows visual wang are full. Face is symmetric and tongue protrudes the midline. Muscle strength is normal in the arms and legs except hip flexion which is 5- bilaterally. Left shoulder is weak related to arthritic change. - Labs CBC & Chem 7: 02/25/22 07:03 02/25/22 07:03 Labs: Microbiology - Last 24 Hours (Table) 02/25/22 07:03 Blood Culture - Preliminary Blood No Growth after 24 hours 02/21/22 15:40 Blood Culture - Preliminary Blood No Growth after 96 hours Assessment and Plan Assessment: * Seizure disorder, came with recurrent seizures (3). Seizures aborted with Versed 5 mg IV push. * Abnormal brain MRI, with abnormal signal with restricted diffusion in the right hippocampus and uncus. Probably favors sequela of patient's seizure. * History of alcoholism. Patient at present denies any regular alcoholism. He states that he just drinks 1-2 beers per night. Patient also takes Klonopin regularly, denies running out of it. No obvious cause/provoking factor identified for the seizure. * Dysphagia, unclear cause. Patient failed swallow. * Pneumonia * Bacteremia with staph coagulase-negative, felt to be contaminant-per ID. * Feet ulcers * Tobacco use * Marijuana use * Coronary artery disease Plan: * Continue Keppra. Patient has received a loading dose of Keppra 2000 mg in the ER, and will be maintained on Keppra 1000 mg twice a day. Patient has failed swallow. Will switch back to IV form of Keppra. * Dysphagia is of unclear cause. Possible CVA. MRI of the brain did reveal abnormal signal suspicious for seizure related versus CVA. * EEG was abnormal due to presence of low amplitude sharp-appearing waves in the right frontotemporal region. This may suggest underlying cortical irritability and tendency for seizures. No electrographic seizure was recorded. * MRI of the brain without contrast revealed right hippocampus and uncus restricted diffusion is favored to represent sequela of patient's seizure. Other differential includes mesial temporal sclerosis, however it is felt to be less likely given no significant atrophic changes. Other etiologies include limbic encephalitis. Short-term follow-up MRI is recommended. I personally reviewed MRI, agree with the findings. * Start aspirin 81 mg daily, as there is abnormal signal on DWI in the right hippocampus. * 2-D echo from 03/24/2021 revealed normal left ventricular size, moderate concentric LVH. EF is mild to moderately impaired 40-45%. Normal left atrial size. Mild aortic valve sclerosis with trace to mild AR. * Carotid Doppler revealed less than 50% stenosis of bilateral carotid bifurcation. Antegrade flow right vertebral artery. Left vertebral unable to visualize. * Lumbar puncture, rule out encephalitis (less likely with improving mentation). * Check NMDA antibodies. * For pneumonia, patient currently on Zosyn. ID following. * No driving, climbing ladders, operating dangerous machineries or swimming. * Recommended abstinence from alcoholism, marijuana and tobacco use. * Dr. Chin Rayo Will resume neurology service in the morning.
[2022-02-27] MEDS: IPRATROPIUM-ALBUTEROL 3 ML NEB INHALATION SCH ×6 (00:35→20:52)
[2022-02-27] MEDS: DEXTROSE 5% IN WATER 1,000 ML IV SCH (04:12)
[2022-02-27] MEDS: DEXTROSE 5%-0.45% NACL 1,000 ML IV SCH ×2 (05:52→22:55)
[2022-02-27 08:08] LABS: African American GFR (CKD) >90 (>60 ml/min/1.73 sqM); Anion Gap 4 mmol/L; Blood Urea Nitrogen 13 mg/dL (9-20); Calcium 7.5 mg/dL (8.4-10.2); Carbon Dioxide 23 mmol/L (22-30); Chloride 116 mmol/L (98-107); Glucose 103 mg/dL (74-99); Non-African American GFR(CKD) >90 (>60 ml/min/1.73 sqM); Sodium 143 mmol/L (137-145)
[2022-02-27 08:09] LABS: Potassium 4.8 mmol/L (3.5-5.1)
[2022-02-27] MEDS: METOPROLOL TARTRATE 25 MG TAB PO SCH ×2 (09:08→21:10)
[2022-02-27] MEDS: TAMSULOSIN 0.4 MG CAP.ER.24H PO SCH (09:08)
[2022-02-27] MEDS: THIAMINE 100 MG TAB PO SCH (09:08)
[2022-02-27] MEDS: ASPIRIN 81 MG PO SCH (09:08)
[2022-02-27] MEDS: levETIRAcetam IV 1,000 MG in SALINE 1 100ML.BAG IVPB SCH ×2 (09:09→21:10)
[2022-02-27] MEDS: METOPROLOL TARTRATE 5 MG/5 ML VIAL IVP PRN ×2 (09:10→16:29)
[2022-02-27] MEDS: PIPERACILLIN-TAZOBACTAM 3.375 GM in SODIUM CHLORIDE 0.9% 100 ML IVPB SCH ×3 (09:10→23:29)
[2022-02-27] MEDS: FAMOTIDINE 20 MG/2 ML VIAL IV SCH (09:10)
[2022-02-27] MEDS: HEPARIN SODIUM,PORCINE/PF 5,000 UNIT/0.5 ML SYRINGE SQ SCH ×3 (09:10→23:29)
--- NOTE | 2022-02-27 10:23 | P.PN ---
Subjective Progress Note Date: 02/27/22 I am seeing the patient for the first time during this admission. He was being cared by Dr. Sharma for neurological management. Per Dr. Sharma, he has recurrent seizure with abnormal signal restriction diffus ion over the right hippocampus and uncus as sequela of seizue. She had EEG which showed presence of sharps over the right frontotemporal but no seizures. He is on Keppra He is pending Lumbar puncture to rule out central infection and NMDA antibody. I saw the patient today and is he is feeling drastically better. He stated he last drinks was 5 days ago but would not tell me how much alcohol use and tobacco use and stated "no more drinking or smoking". He denies of any headache, neck pain or focal weakness. lease refer to Dr. Sharma notes for further details. Objective - Vital Signs Vital signs: Vital Signs Temp 98.3 F 02/27/22 04:22 Pulse 96 02/27/22 09:02 Resp 15 02/27/22 04:22 BP 114/75 02/27/22 04:22 Pulse Ox 100 02/27/22 04:22 FiO2 40 02/27/22 08:52 Intake & Output 02/26/22 02/27/22 02/27/22 18:59 06:59 18:59 Output Total 100 35 Balance -100 -35 Output: Urine 100 35 Other: Voiding Method Indwelling Catheter Indwelling Catheter # Bowel Movements 1 - Exam GENERAL: The patient is lying in bed and is not in acute distress. LUNG: On BiPAP. NEUROLOGICAL: Higher mental function: The patient is awake, alert, oriented to self, place and time. Patient is following commands. No aphasia and no neglect. Cranial nerves: The pupils are round, equal and reactive to light. Visual wang are full to confrontation throughout. Extraocular movement is intact no nystagmus is noted. Facial sensation is normal to touch throughout. The facial strength is normal throughout. No dysarthria is noted. Motor: The strength is 5 over 5 throughout. Normal tone and bulk. Cerebellum: Normal finger to nose bilaterally. Sensation: Sensation is normal to touch throughout. - Labs CBC & Chem 7: 02/25/22 07:03 02/27/22 06:55 Labs: Abnormal Lab Results - Last 24 Hours (Table) 02/27/22 Range/Units 06:55 Chloride 116 H (98-107) mmol/L Creatinine 0.51 L (0.66-1.25) mg/dL Glucose 103 H (74-99) mg/dL Calcium 7.5 L (8.4-10.2) mg/dL Microbiology - Last 24 Hours (Table) 02/21/22 15:40 Blood Culture - Final Blood 02/25/22 07:03 Blood Culture - Preliminary Blood No Growth after 24 hours Assessment and Plan Assessment: * Seizure disorder, came with recurrent seizures (3). Seizures aborted with Versed 5 mg IV push---clinically stable * Abnormal brain MRI, with abnormal signal with restricted diffusion in the right hippocampus and uncus. Probably favors sequela of patient's seizure. * History of alcoholism. 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 Patient also takes Klonopin regularly, denies running out of it. * Dysphagia, unclear cause. Patient failed swallow. * Pneumonia * Bacteremia with staph coagulase-negative, felt to be contaminant-per ID. * Feet ulcers * Tobacco use * Marijuana use * Coronary artery disease Plan: * EEG was abnormal due to presence of low amplitude sharp-appearing waves in the right frontotemporal region. This may suggest underlying cortical irritability and tendency for seizures. No electrographic seizure was recorded. * MRI of the brain without contrast revealed right hippocampus and uncus restricted diffusion is favored to represent sequela of patient's seizure. Other differential includes mesial temporal sclerosis, however it is felt to be less likely given no significant atrophic changes. Other etiologies include limbic encephalitis. Short-term follow-up MRI is recommended. I personally reviewed MRI, agree with the findings. * 2-D echo from 03/24/2021 revealed normal left ventricular size, moderate concentric LVH. EF is mild to moderately impaired 40-45%. Normal left atrial size. Mild aortic valve sclerosis with trace to mild AR. * Carotid Doppler revealed less than 50% stenosis of bilateral carotid bifurcation. Antegrade flow right vertebral artery. Left vertebral unable to visualize. * Continue Keppra. Patient has received a loading dose of Keppra 2000 mg in the ER, and will be maintained on Keppra 1000 mg twice a day. Patient has failed swallow. Will switch back to IV form of Keppra. * Dysphagia is of unclear cause. Possible CVA. MRI of the brain did reveal abnormal signal suspicious for seizure related versus CVA. * He was started on aspirin 81 mg daily, as there is abnormal signal on DWI in the right hippocampus as stroke prophylaxis. * Dr. Sharma consulted Pain specialist for Lumbar puncture, rule out encephalitis (less likely with improving mentation) and ordered NMDA antibodies. * For pneumonia, patient currently on Zosyn. ID following. * Continue Thiamine 100mg daily. 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 * Recommended abstinence from alcoholism, marijuana and tobacco use. Plan is discussed with his nurse. Time with Patient: Less than 30
--- NOTE | 2022-02-27 13:10 | P.PN ---
Subjective Progress Note Date: 02/27/22 61-year-old male who presents to the emergency room on February 21, via EMS, for possible seizure. The patient has a history of chronic alcohol abuse, and chronic foot wounds. He apparently does have a history of seizure disorder, and is apparently noncompliant with his seizure medications. He apparently presented to the emergency department with acute onset of seizure, earlier on the day of admission, which was February 21. He apparently had 3 different seizure episodes within one hour. When EMS arrived, he apparently was actively seizing. They administered 5 mg of IV Versed, and the seizure stopped. The patient was apparently postictal after that. Since being in the emergency department, the patient has been improving neurologically. He was on BiPAP for a short period of time with settings of 15/5 and 60%, up until about 3:00 in the morning. Now he is on between 6-7 L of nasal oxygen. He is getting saline at keep vein open. Current vital signs include sinus tachycardia with a rate of 138, blood pressure 116/85 respiratory rate 22 and saturations 90-92%. White count 26.4, hemoglobin 13.5, hematocrit 43.6, and platelet count was normal. Most recent blood gases show pO2 71, pCO2 47, and a pH is 7.26. That was on BiPAP at 60%. Troponin was 0.030. Initial pH was 7.12. Sodium 124, potassium 4.9, chlorides 96, CO2 19, BUN 6, creatinine 0.66. Urine screen was positive f or benzodiazepines, and marijuana. Chest x-ray shows patchy airspace disease in the left hilar region, consistent with possible aspiration pneumonia. The patient is seen today 02/23/2022 in follow-up on the selective care unit. He is currently resting fairly comfortably in bed. Somewhat lethargic. He is on BiPAP 15/5 and 60% FiO2 with O2 saturations in the 90s. EEG revealed possible low amplitude sharp appearing waves in the right frontotemporal region. This may suggest underlying cortical irritability intensive for seizures. No seizures were recorded. Blood cultures positive for coag-negative staph. Urine culture negative. White count 21.1. Hemoglobin 12.4. Platelets 331. Sodium 138. Potassium 4.8. BUN 7. Creatinine 0.52. AST 39. ALT 18. He is continued on bronchodilators and Zosyn. Heparin for DVT prophylaxis. Remains in the CIWA protocol. Remains on Keppra. The patient seen today 02/24/2022 in follow-up on the selective care unit. He is currently sitting up in bed. More awake and arousable. Currently on 5 L high flow nasal cannula. He has been alternating with BiPAP 15/5 and 60% FiO2. He has normal saline at 50 MLS per hour. Maintained on Zosyn. Bronchodilators. Heparin for DVT prophylaxis. No seizure activity. Remains in CIWA protocol. Last Ativan requirement at 4 AM this morning. The cultures positive for coag- negative staph. White count 15.4. Hemoglobin 11.1. Platelets 325. Sodium 139. Potassium 3.8. BUN 9. Creatinine 0.75. The patient is seen today 02/25/2022 in follow-up on the selective care unit. He is more awake and alert today. Denies any worsening shortness of breath, cough or congestion. Currently maintaining O2 saturations in the 90s on 5 L/m per nasal cannula. He had initially been on BiPAP 5 over 5 and 60% FiO2. Chest x-ray revealed worsening scattered airspace opacities with a new right lower lobe collapse. MRI of the brain revealed right hippocampus and fungus restricted diffusion favoring sequela patient seizure. Generalized atrophy changes and mild nonspecific white matter changes secondary to small vessel ischemic disease. Moderate paranasal sinus disease. Carotid Dopplers revealed less than 50% stenosis bilaterally. Blood cultures revealed coag-negative staph. White count 11.8. Hemoglobin 11.2. Sodium 143. Potassium 3.9. BUN 12. Creatinine 0.57. He remains on DuoNeb inhalations. Antibiotics in the form of Zosyn. Heparin for DVT prophylaxis. Remains on Keppra. Normal saline at 100 ML's per hour. No seizure activity. The patient is seen today 02/26/2022 in follow-up on the selective care unit. He is currently resting comfortably in bed. Awake and alert in no acute distress. He is maintaining O2 saturations in the 90s on 5 L/m per nasal cannula. D545 at 75 ML's per hour. He is continued on bronchodilators. Continue on heparin for DVT prophylaxis. Remains on antibiotics in the form of Zosyn. Follow-up blood cultures revealing no growth. Urine culture revealed no growth. No seizure activity. The patient is seen today 02/27/2022 in follow-up on the selective care unit. He is sitting up in bed. Awake and alert in no acute distress. Currently on Bi PAP 15/5 on 40% FiO2 alternating with 5 L high flow nasal cannula. Receiving D5 W at 50 MLS per hour Follow-up blood cultures revealed no growth. Sodium 143. Potassium 4.8. Chloride 116. BUN 13. Creatinine 0.51. Glucose 103. The plan is for a barium swallow today. She remains on bronchodilators, Zosyn, heparin for DVT prophylaxis. Continue to CIWA protocol. No seizures noted. Objective - Vital Signs Vital signs: Vital Signs Temp 98 F 02/27/22 09:15 Pulse 95 02/27/22 12:27 Resp 17 02/27/22 09:15 BP 117/85 02/27/22 09:15 Pulse Ox 100 02/27/22 09:15 FiO2 40 02/27/22 09:15 Intake & Output 02/26/22 02/27/22 02/27/22 18:59 06:59 18:59 Output Total 100 35 Balance -100 -35 Output: Urine 100 35 Other: Voiding Method Indwelling Catheter Indwelling Catheter Indwelling Catheter # Voids 1 # Bowel Movements 1 1 - Exam GENERAL EXAM: Awake, alert, 61-year-old male, sitting up in bed, on BiPAP 15/5 and 40% FiO2 alternating with 5 L nasal cannula, comfortable in no apparent distress. HEAD: Normocephalic. EYES: Normal reaction of pupils, equal size. NOSE: Clear with pink turbinates. THROAT: No erythema or exudates. NECK: No masses, no JVD. CHEST: No chest wall deformity. LUNGS: Equal air entry with bilateral scattered rhonchi and crackles in the right base. CVS: S1 and S2 normal with no audible murmur, regular rhythm. ABDOMEN: No hepatosplenomegaly, normal bowel sounds, no guarding or rigidity. SPINE: No scoliosis or deformity SKIN: No rashes CENTRAL NERVOUS SYSTEM: Alert, tone is normal in all 4 extremities. EXTREMITIES: Scaly patches on the bottom of the feet. There is no peripheral edema. No clubbing, no cyanosis. Peripheral pulses are intact. - Labs CBC & Chem 7: 02/25/22 07:03 02/27/22 06:55 Labs: Abnormal Lab Results - Last 24 Hours (Table) 02/27/22 Range/Units 06:55 Chloride 116 H (98-107) mmol/L Creatinine 0.51 L (0.66-1.25) mg/dL Glucose 103 H (74-99) mg/dL Calcium 7.5 L (8.4-10.2) mg/dL Microbiology - Last 24 Hours (Table) 02/25/22 07:03 Blood Culture - Preliminary Blood No Growth after 48 hours 02/21/22 15:40 Blood Culture - Final Blood Assessment and Plan Assessment: Recurrent seizure activity, and the patient noncompliant with epilepsy medications. MRI of the brain revealed right hippocampus and uncus restricted diffusion favoring sequela of patient's seizures. Acute hypoxemic respiratory failure secondary to suspected aspiration pneumonia, with increasing right lower lobe collapse. History of chronic tobacco use and nicotine dependence. History of hypertension. History of chronic alcohol abuse. History of marijuana use. Chronic wounds, lower extremities. Plan: The patient was seen and evaluated More awake and alert today Plan is for barium swallow Remains on BiPAP 15/5 on 40% FiO2 alternating with 5 L nasal cannula Titrate the FiO2 as tolerated Continue flutter valve, CPT to right chest Remains in the CIWA protocol Continued on Keppra No seizures noted Follow-up chest x-ray in a.m. We'll continue to follow I have personally seen and examined the patient, performed the documentation and the assessment and plan as written. Number of minutes spent on the visit: 10.
--- NOTE | 2022-02-27 14:07 | P.PN ---
Subjective Progress Note Date: 02/26/22 Principal diagnosis: Aspiration pneumonia Patient is a 61-year-old male with a past medical history significant for chronic on both abuse seizure disorder noncompliant with his seizure medication patient was brought into the ER with acute onset of seizure , patient did have elevated white count and evidence of multifocal infiltrating mostly in the left perihilar region concerning for possible aspiration pneumonia. On today's evaluation that is 02/26/2022, the patient continues to be afebrile, the patient is currently on the BiPAP and he is breathing comfortably on 5 L nasal cannula , the patient denies any chest pain or worsening cough no abdominal pain and no diarrhea has been reported Objective - Vital Signs Vital signs: Vital Signs Temp 97.4 F L 02/26/22 09:05 Pulse 111 H 02/26/22 11:48 Resp 22 02/26/22 11:48 BP 119/84 02/26/22 11:10 Pulse Ox 95 02/26/22 11:55 FiO2 40 02/26/22 11:37 Intake & Output 02/25/22 02/26/22 02/26/22 18:59 06:59 18:59 Output Total 330 100 Balance -330 -100 Output: Urine 330 100 Straight 30 Other: Voiding Method Diaper Indwelling Catheter Indwelling Catheter # Voids 1 # Bowel Movements 1 - Exam GENERAL DESCRIPTION: Middle-aged male lying in bed in no distress RESPIRATORY SYSTEM: Unlabored breathing , decreased breath sounds at bases HEART: S1 S2 regular rate and rhythm , ABDOMEN: Soft , no tenderness EXTREMITIES: No edema feet - Labs CBC & Chem 7: 02/25/22 07:03 02/27/22 06:55 Labs: Microbiology - Last 24 Hours (Table) 02/25/22 07:03 Blood Culture - Preliminary Blood No Growth after 24 hours 02/21/22 15:40 Blood Culture - Preliminary Blood No Growth after 96 hours Assessment and Plan (1) Pneumonia Current Visit: Yes Status: Acute Code(s): J18.9 - PNEUMONIA, UNSPECIFIED ORGANISM SNOMED Code(s): 764205242 Plan: 1patient presented to hospital with active seizures in this patient now with evidence of multifocal pneumonia mostly left perihilar region did have elevated vital concerning for pneumonia of aspiration etiology. 2positive blood culture finalized as staph epi likely skin contamination blood cultures repeated 02/25/2022 so far negative. 3l try to obtain a sputum to narrow down on antibiotics 4-continue with the Zosyn and monitor clinical course closely Time with Patient: Less than 30
[2022-02-27 14:09] VITALS: BMI 19.8
--- NOTE | 2022-02-27 14:09 | P.PN ---
Subjective Progress Note Date: 02/27/22 Principal diagnosis: Aspiration pneumonia Patient is a 61-year-old male with a past medical history significant for chronic on both abuse seizure disorder noncompliant with his seizure medication patient was brought into the ER with acute onset of seizure , patient did have elevated white count and evidence of multifocal infiltrating mostly in the left perihilar region concerning for possible aspiration pneumonia. On today's evaluation that is 02/27/2022, the patient remains to be afebrile, the patient is breathing comfortably on 5 L nasal cannula , the patient denies any chest pain , continued to have a cough but not bringing up any sputum no nausea no vomiting no abdominal pain or urinary Objective - Vital Signs Vital signs: Vital Signs Temp 98 F 02/27/22 09:15 Pulse 95 02/27/22 12:27 Resp 17 02/27/22 09:15 BP 117/85 02/27/22 09:15 Pulse Ox 100 02/27/22 09:15 FiO2 40 02/27/22 09:15 Intake & Output 02/26/22 02/27/22 02/27/22 18:59 06:59 18:59 Output Total 100 35 Balance -100 -35 Output: Urine 100 35 Other: Voiding Method Indwelling Catheter Indwelling Catheter Indwelling Catheter # Voids 1 # Bowel Movements 1 1 - Exam GENERAL DESCRIPTION: Middle-aged male lying in bed in no distress RESPIRATORY SYSTEM: Unlabored breathing , decreased breath sounds at bases HEART: S1 S2 regular rate and rhythm , ABDOMEN: Soft , no tenderness EXTREMITIES: No edema feet - Labs CBC & Chem 7: 02/25/22 07:03 02/27/22 06:55 Labs: Abnormal Lab Results - Last 24 Hours (Table) 02/27/22 Range/Units 06:55 Chloride 116 H (98-107) mmol/L Creatinine 0.51 L (0.66-1.25) mg/dL Glucose 103 H (74-99) mg/dL Calcium 7.5 L (8.4-10.2) mg/dL Microbiology - Last 24 Hours (Table) 02/25/22 07:03 Blood Culture - Preliminary Blood No Growth after 48 hours 02/21/22 15:40 Blood Culture - Final Blood Assessment and Plan (1) Pneumonia Current Visit: Yes Status: Acute Code(s): J18.9 - PNEUMONIA, UNSPECIFIED ORGANISM SNOMED Code(s): 781582816 Plan: 1patient presented to hospital with active seizures in this patient now with evidence of multifocal pneumonia mostly left perihilar region did have elevated vital concerning for pneumonia of aspiration etiology. 2positive blood culture finalized as staph epi likely skin contamination blood cultures repeated 02/25/2022 so far negative. 3patient seemed to have some clinical improvement and will continue with the Zosyn and transitioned to oral antibiotics on discharge Time with Patient: Less than 30
--- NOTE | 2022-02-27 14:56 | FL ---
EXAMINATION TYPE: FL barium swallow w video DATE OF EXAM: 02/27/2022 CLINICAL HISTORY: 61-year-old male coughing at bedside, assess for aspiration. Patient nothing by micah . TECHNIQUE: Deglutition study is performed utilizing thin liquid barium, honey and nectar thick liqui d barium, barium thick applesauce, and barium coated cracker. Total fluoroscopy time: 1 minute 40 seconds. Total images: None. Real-time fluoroscopy support was provided to speech pathology. COMPARISON: None. FINDINGS: Swallow initiation was mildly delayed with bolus free spilling to the level of the vallecula. Normal mastication is seen with solid modalities tested. There is no evidence of penetration or aspiration with any modality tested. There is some coating of the posterior pharyngeal wall suggesting decrease d pharyngeal peristalsis. Mild vallecular residuals are also noted. IMPRESSION: Mild swallow delay. Mild residuals. Some decreased pharyngeal peristalsis noted. No penetration or as piration identified. Please refer to speech therapist notes for further details if necessary.
--- NOTE | 2022-02-27 16:12 | P.PN ---
Subjective Progress Note Date: 02/27/22 61-year-old male with a known history of seizure disorder, currently with a smoker and current alcohol abuse and currently not on any antiepileptic drugs was brought to ER by ambulance due to seizures.. Patient was also having chronic foot wounds and is on follow-up with wound care center. Patient is also noncompliant with follow-up and medications. Apparently patient had 3 episodes of seizures within an hour and has been acting differently. Patient's parents called EMS. Upon arrival to the ER patient was having leftward gaze deviation and was actively seizing. Patient was given 5 mg of IV Versed and seizure stopped. Patient was postictal. Patient is still drowsy and lethargic and unable to provide history. CT head and cervical spine showed no acute intracranial process. Nonspecific white matter changes likely secondary to chronic small vessel ischemic disease. No evidence of cervical spine fracture. Mild COPD changes with intralobular septal thickening and patchy groundglass opacities within the bilateral upper lobes concerning for infectious/infectious inflammatory process. Chest x-ray showed multifocal airspace opacities most pronounced on the left hilar region. Findings concerning for pneumonia. Foot x-ray showed no evidence of acute fracture. No osteomyelitis. Multifocal osteoarthrosis changes. EKG showed sinus tachycardia. Laboratory data showed WBC 18.6 hemoglobin 13.1 and lipase 471 2124 potassium 4.9 chloride 96 bicarb is 19 BUN 16 creatinine 0.66 and blood howard gar is 2631 lactic acid 7.9 and albumin 2.9 serum alcohol level is less than 10 and influenza AB and RSV PCR and COVID-19 not detected. Patient is currently ER and requiring oxygen at 6 L via nasal cannula. Objective - Vital Signs Vital signs: Vital Signs Temp 97.9 F 02/26/22 23:49 Pulse 105 H 02/26/22 23:49 Resp 24 02/26/22 23:49 BP 114/79 02/26/22 23:49 Pulse Ox 98 02/26/22 23:49 FiO2 40 02/26/22 23:49 Intake & Output 02/26/22 02/26/22 02/27/22 06:59 18:59 06:59 Output Total 100 100 Balance -100 -100 Output: Urine 100 100 Other: Voiding Method Indwelling Catheter Indwelling Catheter Indwelling Catheter # Bowel Movements 1 1 - Exam GENERAL: The patient is alert and oriented x2, not in any acute distress. Well developed, well nourished. on 5l nasal cannula. HEENT: Pupils are round and equally reacting to light. EOMI. No scleral icterus. No conjunctival pallor. Normocephalic, atraumatic. No pharyngeal erythema. No thyromegaly. CARDIOVASCULAR: S1 and S2 present. No murmurs, rubs, or gallops. PULMONARY: Coarse scattered rhonchi ABDOMEN: Soft, nontender, nondistended, normoactive bowel sounds. No palpable organomegaly. MUSCULOSKELETAL: No joint swelling or deformity. EXTREMITIES: No cyanosis, clubbing, or pedal edema. NEUROLOGICAL: Gross neurological examination did not reveal any focal deficits. SKIN: No rashes. - Labs CBC & Chem 7: 02/25/22 07:03 02/27/22 06:55 Labs: Microbiology - Last 24 Hours (Table) 02/21/22 15:40 Blood Culture - Preliminary Blood No Growth after 120 hours 02/25/22 07:03 Blood Culture - Preliminary Blood No Growth after 24 hours Assessment and Plan Assessment: Acute Seizure disorder with hx of recurrent seizures. Noncompliant with medications. Bilateral upper lobe pneumonia concerning for aspiration pneumonia Sepsis secondary above Severe lactic acidosis 7.9 on admission Acute hypoxemic respiratory failure was on BIPAP currently requiring 5L nasal cannula Hypovolemic hyponatremia Alcohol abuse History of marijuana use Ongoing nicotine addiction Coagulase-negative staph aureus bacteremia likely contamination Hypertension Sinus tachycardia Chronic lower extremity skin changes/wounds. DVT prophylaxis Heparin subcu GI prophylaxis Full Code Plan: Currently maintained on oxygen support 5L nasal cannula Patient was started on Keppra 1000 mg twice daily and continue with neurochecks and seizure and fall precautions. IV Ativan as needed for seizures. Continues on CIWA, monitor for alcohol withdrawal symptoms. Continue thiamine and multivitamins. Patient was given 1 dose of vancomycin. Continue with Zosyn and follow-up culture reports. Continue with NPO pending further recommendations from speech therapy possible barium swallow Maintain aspiration precautions with head of bed up 30* at all times. Continue IV fluids, IV lopressor Neurology, pulmonary and ID is on board. PT and OT consultation in place.
[2022-02-28] MEDS: IPRATROPIUM-ALBUTEROL 3 ML NEB INHALATION SCH ×6 (00:23→20:10)
[2022-02-28] MEDS: DEXTROSE 5% IN WATER 1,000 ML IV SCH ×2 (03:58→20:28)
[2022-02-28] MEDS: METOPROLOL TARTRATE 5 MG/5 ML VIAL IVP PRN (05:21)
--- NOTE | 2022-02-28 06:57 | XR ---
EXAMINATION TYPE: XR chest 1V portable DATE OF EXAM: 02/28/2022 CLINICAL HISTORY: Difficulty breathing progress study. Right lower lobe infiltrate. TECHNIQUE: Single AP portable upright view of the chest is obtained. COMPARISON: Chest x-ray from February 25, 2022 and older studies FINDINGS: Small to borderline moderate size right pleural effusion redemonstrated and slightly more prominent. New small to tiny left pleural effusion. Worsening right mid to lower lung increased opaci ty noted. Moderate central vascular congestion now seen. Cardiac silhouette size stable and upper toscano its of normal. Osseous structures remain demineralized. IMPRESSION: Moderate central vascular congestion now present slightly more prominent from most recent x-ray. Small to moderate-sized right pleural effusion slightly more prominent from most recent x-ray . New small to tiny left pleural effusion. Worsening right lung edema and/or infiltrates. Correlate f or fluid overload state and/or infection progression.
[2022-02-28] MEDS: levETIRAcetam 500 MG TAB PO SCH ×2 (08:38→20:28)
[2022-02-28] MEDS: FAMOTIDINE 20 MG/2 ML VIAL IV SCH (08:38)
[2022-02-28] MEDS: TAMSULOSIN 0.4 MG CAP.ER.24H PO SCH (08:39)
[2022-02-28] MEDS: METOPROLOL TARTRATE 25 MG TAB PO SCH (08:39)
[2022-02-28] MEDS: PIPERACILLIN-TAZOBACTAM 3.375 GM in SODIUM CHLORIDE 0.9% 100 ML IVPB SCH ×3 (08:39→23:43)
[2022-02-28] MEDS: THIAMINE 100 MG TAB PO SCH (08:39)
[2022-02-28] MEDS ORDERED: FAMOTIDINE 20 MG TAB PO SCH (09:00)
[2022-02-28] MEDS ORDERED: METOPROLOL TARTRATE 25 MG TAB PO STA ×2 (09:56→14:42)
[2022-02-28] MEDS: DEXTROSE 5%-0.45% NACL 1,000 ML IV SCH (10:16)
[2022-02-28] MEDS: HEPARIN SODIUM,PORCINE/PF 5,000 UNIT/0.5 ML SYRINGE SQ SCH ×3 (10:16→23:43)
[2022-02-28] MEDS: ASPIRIN 81 MG PO SCH (10:16)
--- NOTE | 2022-02-28 10:33 | P.PN ---
Subjective Progress Note Date: 02/28/22 The patient is seen at bedside and per nurse no further seizures. He is pending to have lumbar puncture today, but stated wants to hold off till tomorrow since not feeling generalized well. It seems per nurse he has fluctuating rhythm. Patient notified me that he drinks at least 4 drinks daily and not 1-2 drinks. Objective - Vital Signs Vital signs: Vital Signs Temp 99.2 F 02/28/22 04:08 Pulse 100 02/28/22 07:59 Resp 18 02/28/22 05:19 BP 121/87 02/28/22 05:19 Pulse Ox 96 02/28/22 05:19 FiO2 40 02/27/22 15:56 Intake & Output 02/27/22 02/28/22 02/28/22 18:59 06:59 18:59 Output Total 100 410 Balance -100 -410 Weight 58.967 kg Output: Urine 100 410 Other: Voiding Method Indwelling Catheter Indwelling Catheter # Voids 1 # Bowel Movements 1 - Labs CBC & Chem 7: 02/25/22 07:03 02/27/22 06:55 Labs: Microbiology - Last 24 Hours (Table) 02/25/22 07:03 Blood Culture - Preliminary Blood No Growth after 72 hours 02/21/22 15:40 Blood Culture - Final Blood Assessment and Plan Assessment: * Seizure disorder, came with recurrent seizures (3). Seizures aborted with Versed 5 mg IV push---clinically stable. Seems possibly due to alcohol withdrawal (Presented with alcohol <10 to our facility) * Abnormal brain MRI, with abnormal signal with restricted diffusion in the right hippocampus and uncus. Probably favors sequela of patient's seizure. * Heavy alcohol use. He stated he drinks at least 4 beers daily or more. Saundra smith also takes Klonopin regularly, denies running out of it. * Dysphagia, unclear cause. Patient failed swallow. * Pneumonia * Bacteremia with staph coagulase-negative, felt to be contaminant-per ID. * Feet ulcers * Tobacco use * Marijuana use * Coronary artery disease Plan: * EEG was abnormal due to presence of low amplitude sharp-appearing waves in the right frontotemporal region. This may suggest underlying cortical irritability and tendency for seizures. No electrographic seizure was recorded. * MRI of the brain without contrast revealed right hippocampus and uncus restricted diffusion is favored to represent sequela of patient's seizure. Other differential includes mesial temporal sclerosis, however it is felt to be less likely given no significant atrophic changes. Other etiologies include limbic encephalitis. Short-term follow-up MRI is recommended. I personally reviewed MRI, agree with the findings. * 2-D echo from 03/24/2021 revealed normal left ventricular size, moderate concentric LVH. EF is mild to moderately impaired 40-45%. Normal left atrial size. Mild aortic valve sclerosis with trace to mild AR. * Carotid Doppler revealed less than 50% stenosis of bilateral carotid bifurcation. Antegrade flow right vertebral artery. Left vertebral unable to visualize. * Continue Keppra. Patient has received a loading dose of Keppra 2000 mg in the ER, and will be maintained on Keppra 1000 mg twice a day. Patient has failed swallow. Will switch back to IV form of Keppra. * Per speech therapist he was able to swallow and placed him on diet. MRI of the brain did reveal abnormal signal suspicious for seizure related versus CVA. * He was started on aspirin [address] Sharma as stroke prophylaxis since there is abnormal signal on DWI in the right hippocampus. In my opinion the abnormal signal is due to his seizure. But can resum ASA 81mg daily since carotids <50% stenosis. * Dr. Sharma consulted Pain specialist for Lumbar puncture, rule out encephalitis (less likely with improving mentation) and ordered NMDA antibodies. * For pneumonia, patient currently on Zosyn. ID following. * Continue Thiamine 100mg daily. * Per [place] DMV because of seizures, No driving for 6 months until seizure free, climbing ladders, operating dangerous machineries or swimming. * Recommended abstinence from alcoholism, marijuana and tobacco use. Plan is discussed with patient and his nurse. Time with Patient: Less than 30
--- NOTE | 2022-02-28 10:49 | P.PN ---
Progress Note - Text Progress Note Date: 02/28/22 This is 61 years old male with a history of seizure, and possible encephalitis, neurology requested lumbar puncture, and we were planning to proceed with lumbar puncture, but because of her unstable heartrate and plus patient requests to delay the lumbar puncture to further date, and the neurology service requested to be delayed until tomorrow or day after tomorrow, for this isn't the procedure will not be done today and we will proceed with a lumbar puncture when patient agreed with the procedure .
[2022-02-28] MEDS ORDERED: FUROSEMIDE 10 MG/ML 10 ML VIAL IV STA (10:57)
--- NOTE | 2022-02-28 13:45 | P.PN ---
Subjective Progress Note Date: 02/28/22 61-year-old male who presents to the emergency room on February 21, via EMS, for possible seizure. The patient has a history of chronic alcohol abuse, and chronic foot wounds. He apparently does have a history of seizure disorder, and is apparently noncompliant with his seizure medications. He apparently presented to the emergency department with acute onset of seizure, earlier on the day of admission, which was February 21. He apparently had 3 different seizure episodes within one hour. When EMS arrived, he apparently was actively seizing. They administered 5 mg of IV Versed, and the seizure stopped. The patient was apparently postictal after that. Since being in the emergency department, the patient has been improving neurologically. He was on BiPAP for a short period of time with settings of 15/5 and 60%, up until about 3:00 in the morning. Now he is on between 6-7 L of nasal oxygen. He is getting saline at keep vein open. Current vital signs include sinus tachycardia with a rate of 138, blood pressure 116/85 respiratory rate 22 and saturations 90-92%. White count 26.4, hemoglobin 13.5, hematocrit 43.6, and platelet count was normal. Most recent blood gases show pO2 71, pCO2 47, and a pH is 7.26. That was on BiPAP at 60%. Troponin was 0.030. Initial pH was 7.12. Sodium 124, potassium 4.9, chlorides 96, CO2 19, BUN 6, creatinine 0.66. Urine screen was positive f or benzodiazepines, and marijuana. Chest x-ray shows patchy airspace disease in the left hilar region, consistent with possible aspiration pneumonia. The patient is seen today 02/23/2022 in follow-up on the selective care unit. He is currently resting fairly comfortably in bed. Somewhat lethargic. He is on BiPAP 15/5 and 60% FiO2 with O2 saturations in the 90s. EEG revealed possible low amplitude sharp appearing waves in the right frontotemporal region. This may suggest underlying cortical irritability intensive for seizures. No seizures were recorded. Blood cultures positive for coag-negative staph. Urine culture negative. White count 21.1. Hemoglobin 12.4. Platelets 331. Sodium 138. Potassium 4.8. BUN 7. Creatinine 0.52. AST 39. ALT 18. He is continued on bronchodilators and Zosyn. Heparin for DVT prophylaxis. Remains in the CIWA protocol. Remains on Keppra. The patient seen today 02/24/2022 in follow-up on the selective care unit. He is currently sitting up in bed. More awake and arousable. Currently on 5 L high flow nasal cannula. He has been alternating with BiPAP 15/5 and 60% FiO2. He has normal saline at 50 MLS per hour. Maintained on Zosyn. Bronchodilators. Heparin for DVT prophylaxis. No seizure activity. Remains in CIWA protocol. Last Ativan requirement at 4 AM this morning. The cultures positive for coag- negative staph. White count 15.4. Hemoglobin 11.1. Platelets 325. Sodium 139. Potassium 3.8. BUN 9. Creatinine 0.75. The patient is seen today 02/25/2022 in follow-up on the selective care unit. He is more awake and alert today. Denies any worsening shortness of breath, cough or congestion. Currently maintaining O2 saturations in the 90s on 5 L/m per nasal cannula. He had initially been on BiPAP 5 over 5 and 60% FiO2. Chest x-ray revealed worsening scattered airspace opacities with a new right lower lobe collapse. MRI of the brain revealed right hippocampus and fungus restricted diffusion favoring sequela patient seizure. Generalized atrophy changes and mild nonspecific white matter changes secondary to small vessel ischemic disease. Moderate paranasal sinus disease. Carotid Dopplers revealed less than 50% stenosis bilaterally. Blood cultures revealed coag-negative staph. White count 11.8. Hemoglobin 11.2. Sodium 143. Potassium 3.9. BUN 12. Creatinine 0.57. He remains on DuoNeb inhalations. Antibiotics in the form of Zosyn. Heparin for DVT prophylaxis. Remains on Keppra. Normal saline at 100 ML's per hour. No seizure activity. The patient is seen today 02/26/2022 in follow-up on the selective care unit. He is currently resting comfortably in bed. Awake and alert in no acute distress. He is maintaining O2 saturations in the 90s on 5 L/m per nasal cannula. D545 at 75 ML's per hour. He is continued on bronchodilators. Continue on heparin for DVT prophylaxis. Remains on antibiotics in the form of Zosyn. Follow-up blood cultures revealing no growth. Urine culture revealed no growth. No seizure activity. The patient is seen today 02/27/2022 in follow-up on the selective care unit. He is sitting up in bed. Awake and alert in no acute distress. Currently on Bi PAP 15/ on 40% FiO2 alternating with 5 L high flow nasal cannula. Receiving D5 W at 50 MLS per hour Follow-up blood cultures revealed no growth. Sodium 143. Potassium 4.8. Chloride 116. BUN 13. Creatinine 0.51. Glucose 103. The plan is for a barium swallow today. She remains on bronchodilators, Zosyn, heparin for DVT prophylaxis. Continue to CIWA protocol. No seizures noted. The patient is seen today 02/28/2022 in follow-up on the selective care unit. He is sitting up in bed. Awake and alert in no acute distress. Currently maintaining O2 saturations in the 90s on 2 L/m per nasal cannula. His main complaint is that of fatigue. No worsening shortness of breath, cough or conge stion. No seizure activity. He's been afebrile. Hemodynamically stable. Chest x-ray reveals moderate central vascular congestion with small to moderate right pleural effusion and tiny left pleural effusion. He has D5W at 75 mL per hour. Follow-up blood culture reveals no growth. Urine culture revealed no growth. ProBNP 18,500. Has only been in a -135 mL balance. Currently on bronchodilators. Antibiotics in the form of Zosyn. Heparin for DVT prophylaxis. Objective - Vital Signs Vital signs: Vital Signs Temp 98 F 02/28/22 08:35 Pulse 110 H 02/28/22 11:50 Resp 20 02/28/22 11:25 BP 108/76 02/28/22 11:25 Pulse Ox 95 02/28/22 11:25 FiO2 40 02/27/22 15:56 Intake & Output 02/27/22 02/28/22 02/28/22 18:59 06:59 18:59 Output Total 100 410 750 Balance -100 -410 -750 Weight 58.967 kg 58.967 kg Output: Urine 100 410 750 Other: Voiding Method Indwelling Catheter Indwelling Catheter Indwelling Catheter # Voids 1 # Bowel Movements 1 - Exam GENERAL EXAM: Awake, alert, 61-year-old male, sitting up in bed, on 2 L nasal cannula, comfortable in no apparent distress. HEAD: Normocephalic. EYES: Normal reaction of pupils, equal size. NOSE: Clear with pink turbinates. THROAT: No erythema or exudates. NECK: No masses, no JVD. CHEST: No chest wall deformity. LUNGS: Equal air entry with bilateral scattered rhonchi and crackles in the bases right greater than left. CVS: S1 and S2 normal with no audible murmur, regular rhythm. ABDOMEN: No hepatosplenomegaly, normal bowel sounds, no guarding or rigidity. SPINE: No scoliosis or deformity SKIN: No rashes CENTRAL NERVOUS SYSTEM: Alert, tone is normal in all 4 extremities. EXTREMITIES: Scaly patches on the bottom of the feet. There is no peripheral edema. No clubbing, no cyanosis. Peripheral pulses are intact. - Labs CBC & Chem 7: 02/25/22 07:03 02/27/22 06:55 Labs: Microbiology - Last 24 Hours (Table) 02/25/22 07:03 Blood Culture - Preliminary Blood No Growth after 72 hours Assessment and Plan Assessment: Recurrent seizure activity, and the patient noncompliant with epilepsy medications. MRI of the brain revealed right hippocampus and uncus restricted diffusion favoring sequela of patient's seizures. Acute hypoxemic respiratory failure secondary to suspected aspiration pneumonia, with increasing right lower lobe collapse. Barium swallow from 02/27/2022 revealed no penetration or aspiration identified Suspect underlying systolic congestive heart failure with previous echocardiogram revealing ejection fraction of 40-45%, proBNP greater than 18,000 History of chronic tobacco use and nicotine dependence. History of hypertension. History of chronic alcohol abuse. History of marijuana use. Chronic wounds, lower extremities. Plan: The patient was seen and evaluated Chest x-ray, labs and medications reviewed Barium swallow revealed no aspiration Discontinue dextrose infusion ProBNP greater than 18,000 Lasix 40 mg IVP 1 Obtain echocardiogram Currently improved and on 2 L nasal cannula Alternates with BiPAP 15/5 on 40% FiO2 Titrate the FiO2 as tolerated Continue flutter valve, CPT to right chest We'll continue to follow I have personally seen and examined the patient, performed the documentation and the assessment and plan as written. Number of minutes spent on the visit: 10.
--- NOTE | 2022-02-28 18:49 | P.PN ---
Subjective Progress Note Date: 02/28/22 Principal diagnosis: Aspiration pneumonia Patient is a 61-year-old male with a past medical history significant for chronic on both abuse seizure disorder noncompliant with his seizure medication patient was brought into the ER with acute onset of seizure , patient did have elevated white count and evidence of multifocal infiltrating mostly in the left perihilar region concerning for possible aspiration pneumonia. On today's evaluation that is 02/28/2022, the patient continues to be afebrile, the patient is breathing comfortably and is down to 2 L nasal cannula , the patient denies any chest pain , the patient continued to have a cough but not bringing up any sputum no nausea no vomiting no abdominal pain or urinary Objective - Vital Signs Vital signs: Vital Signs Temp 98 F 02/28/22 08:35 Pulse 110 H 02/28/22 11:50 Resp 18 02/28/22 08:35 BP 120/86 02/28/22 08:35 Pulse Ox 95 02/28/22 08:35 FiO2 40 02/27/22 15:56 Intake & Output 02/27/22 02/28/22 02/28/22 18:59 06:59 18:59 Output Total 100 410 Balance -100 -410 Weight 58.967 kg 58.967 kg Output: Urine 100 410 Other: Voiding Method Indwelling Catheter Indwelling Catheter Indwelling Catheter # Voids 1 # Bowel Movements 1 - Exam GENERAL DESCRIPTION: Middle-aged male lying in bed in no distress RESPIRATORY SYSTEM: Unlabored breathing , decreased breath sounds at bases HEART: S1 S2 regular rate and rhythm , ABDOMEN: Soft , no tenderness EXTREMITIES: No edema feet - Labs CBC & Chem 7: 02/25/22 07:03 02/27/22 06:55 Labs: Microbiology - Last 24 Hours (Table) 02/25/22 07:03 Blood Culture - Preliminary Blood No Growth after 72 hours 02/21/22 15:40 Blood Culture - Final Blood Assessment and Plan (1) Pneumonia Current Visit: Yes Status: Acute Code(s): J18.9 - PNEUMONIA, UNSPECIFIED ORGANISM SNOMED Code(s): 369164510 Plan: 1patient presented to hospital with active seizures in this patient now with evidence of multifocal pneumonia mostly left perihilar region did have elevated vital concerning for pneumonia of aspiration etiology. 2positive blood culture finalized as staph epi likely skin contamination blood cultures repeated 02/25/2022 so far negative. 3patient seemed to have some clinical improvement and will continue with the Zosyn along with aspiration precaution and plan is to transition to oral Augmentin on discharge \ Time with Patient: Less than 30
--- NOTE | 2022-02-28 19:46 | P.PN ---
Subjective 61-year-old male with a known history of seizure disorder, currently with a smoker and current alcohol abuse and currently not on any antiepileptic drugs was brought to ER by ambulance due to seizures.. Patient was also having chronic foot wounds and is on follow-up with wound care center. Patient is also noncompliant with follow-up and medications. Apparently patient had 3 episodes of seizures within an hour and has been acting differently. Patient's parents called EMS. Upon arrival to the ER patient was having leftward gaze deviation and was actively seizing. Patient was given 5 mg of IV Versed and seizure stopped. Patient was postictal. Patient is still drowsy and lethargic and unable to provide history. CT head and cervical spine showed no acute intracranial process. Nonspecific white matter changes likely secondary to chronic small vessel ischemic disease. No evidence of cervical spine fracture. Mild COPD changes with intralobular septal thickening and patchy groundglass opacities within the bilateral upper lobes concerning for infectious/infectious inflammatory process. Chest x-ray showed multifocal airspace opacities most pronounced on the left hilar region. Findings concerning for pneumonia. Foot x-ray showed no evidence of acute fracture. No osteomyelitis. Multifocal osteoarthrosis changes. EKG showed sinus tachycardia. Laboratory data showed WBC 18.6 hemoglobin 13.1 and lipase 471 2124 potassium 4.9 chloride 96 bicarb is 19 BUN 16 creatinine 0.66 and blood sugar is 2631 lactic acid 7.9 and albumin 2.9 serum alcohol level is less than 10 and influenza AB and RSV PCR and COVID-19 not detected. Patient is currently ER and requiring oxygen at 6 L via nasal cannula. 24 hour interval change 02/28/2022 Patient is seen and evaluated in follow-up on the selective care unit. Awake and alert in no acute distress; maintaining O2 saturations in the 90s on 2 L/m per nasal cannula. His main complaint is that of fatigue. No worsening shortness of breath, cough or congestion. -- Chest x-ray reveals moderate central vascular congestion with small to moderate right pleural effusion and tiny left pleural effusion. He has D5W at 75 mL per hour. - Follow-up blood culture reveals no growth. Urine culture revealed no growth. ProBNP 18,500. Patient received Lasix 40 mg IV 1; echocardiogram is recommended - Currently on bronchodilators. Antibiotics in the form of Zosyn. Heparin for DVT prophylaxis. Patient underwent radium swallow which did not reveal any aspiration Objective - Vital Signs Vital signs: Vital Signs Temp 98 F 02/28/22 08:35 Pulse 110 H 02/28/22 11:50 Resp 20 02/28/22 11:25 BP 108/76 02/28/22 11:25 Pulse Ox 95 02/28/22 11:25 FiO2 40 02/27/22 15:56 Intake & Output 02/27/22 02/28/22 02/28/22 18:59 06:59 18:59 Output Total 100 410 750 Balance -100 -410 -750 Weight 58.967 kg 58.967 kg Output: Urine 100 410 750 Other: Voiding Method Indwelling Catheter Indwelling Catheter Indwelling Catheter # Voids 1 # Bowel Movements 1 - Exam GENERAL: The patient is alert and oriented x2, not in any acute distress. Well developed, well nourished. on 5l nasal cannula. HEENT: Pupils are round and equally reacting to light. EOMI. No scleral icterus. No conjunctival pallor. Normocephalic, atraumatic. No pharyngeal erythema. No thyromegaly. CARDIOVASCULAR: S1 and S2 present. No murmurs, rubs, or gallops. PULMONARY: Coarse scattered rhonchi ABDOMEN: Soft, nontender, nondistended, normoactive bowel sounds. No palpable organomegaly. MUSCULOSKELETAL: No joint swelling or deformity. EXTREMITIES: No cyanosis, clubbing, or pedal edema. NEUROLOGICAL: Gross neurological examination did not reveal any focal deficits. SKIN: No rashes. - Labs CBC & Chem 7: 02/25/22 07:03 02/27/22 06:55 Labs: Microbiology - Last 24 Hours (Table) 02/25/22 07:03 Blood Culture - Preliminary Blood No Growth after 72 hours Assessment and Plan Assessment: Acute Seizure disorder with hx of recurrent seizures. Noncompliant with medications. Bilateral upper lobe pneumonia concerning for aspiration pneumonia Sepsis secondary above Severe lactic acidosis 7.9 on admission Acute hypoxemic respiratory failure was on BIPAP currently requiring 5L nasal cannula Hypovolemic hyponatremia Alcohol abuse History of marijuana use Ongoing nicotine addiction Coagulase-negative staph aureus bacteremia likely contamination Hypertension Sinus tachycardia Chronic lower extremity skin changes/wounds. DVT prophylaxis Heparin subcu GI prophylaxis Full Code Plan: Currently maintained on oxygen support 5L nasal cannula Patient was started on Keppra 1000 mg twice daily and continue with neurochecks and seizure and fall precautions. IV Ativan as needed for seizures. Continues on CIWA, monitor for alcohol withdrawal symptoms. Continue thiamine and multivitamins. Patient was given 1 dose of vancomycin. Continue with Zosyn and follow-up culture reports. Continue with NPO pending further recommendations from speech therapy possible barium swallow Maintain aspiration precautions with head of bed up 30* at all times. Continue IV fluids, IV lopressor Neurology, pulmonary and ID is on board. PT and OT consultation in place.
[2022-02-28] MEDS ORDERED: METOPROLOL TARTRATE 50 MG TAB PO SCH (21:00)
[2022-03-01] MEDS: IPRATROPIUM-ALBUTEROL 3 ML NEB INHALATION SCH ×7 (00:10→23:31)
--- NOTE | 2022-03-01 07:56 | P.CRDCN ---
History of Present Illness Consult date: 03/01/22 History of present illness: HISTORY OF PRESENT ILLNESS: This is a 61-year-old male with a past medical history significant for hypertension, seizure disorder, tobacco use and dependence, alcohol abuse, and chronic wound to bilateral feet. 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 We have been asked to see the patient in consultation for tachycardia. Patient has been admitted to the hospital for seizure disorder, acute hypoxic respiratory failure secondary to aspiration pneumonia and also chronic lower extremity wounds. Patient was having heart rate running between 115 in the 180s yesterday. He was on Lopressor 25 mg twice daily and we added additional 252 doses yesterday. Blood pressure is stable and heart rate is improved today with heart rate running in the 90s. Telemetry is sinus tachycardia with PACs. Patient denies feeling any palpitations, fluttering, chest pain. Patient's only concern is regarding swallowing ability. EKG sinus tachycardia at 136 bpm BNP 18,500, potassium 4.8, BUN 13 creatinine 0.51. Chest x-ray 02/25 revealed worsening scattered airspace opacities, new right pleural effusion Current home cardiac medications include clonidine 0.2 mg in the morning and 0.1 mg at night, metoprolol tartrate 100 mg twice a day, lisinopril 10 mg daily Echocardiogram 02/28/2021 revealed EF of 30% with apical, septal, lateral and inferior hypokinesia. RVSP 30. Mild aortic regurgitation, mild mitral regurgitation, mild tricuspid regurgitation. REVIEW OF SYSTEMS: At the time of my exam: CONSTITUTIONAL: Denies fever or chills. HEENT: Denies blurred vision, vision changes, or eye pain. Denies hemoptysis CARDIOVASCULAR: Denies chest pain. Denies palpitations RESPIRATORY: Denies shortness of breath. GASTROINTESTINAL: Denies abdominal pain. Denies nausea or vomiting. HEMATOLOGIC: Denies bleeding disorders. GENITOURINARY: Denies any blood in urine. SKIN: Denies pruitis. Denies rash. PHYSICAL EXAM: VITAL SIGNS: Reviewed. GENERAL: Well-developed in no acute distress. Patient is laying in bed with no respiratory distress. HEENT: Head is normocephalic. Pupils are equal, round. Sclerae anicteric. Mucous membranes of the mouth are moist. Neck supple. No JVD or thyromegaly LUNGS: Respirations even and unlabored. Lungs diminished with rhonchi b ilaterally. HEART: Regular rate and rhythm. S1 and S2 heard. ABDOMEN: Soft. Nondistended. Nontender. EXTREMITIES: Normal range of motion. No clubbing or cyanosis. Peripheral pulses intact. No lower extremity edema. Wounds to bilateral feet NEUROLOGIC: Awake and alert. Oriented x 3. ASSESSMENT: Sinus tachycardia secondary to not being on home dose of metoprolol Seizure disorder Acute hypoxic respiratory failure secondary to aspiration pneumonia Chronic wounds to bilateral feet Hypertension PLAN: Metoprolol will be resumed at 100 mg twice daily which is his home dose Abstinence from alcohol and tobacco use recommended Cardiology will sign off and follow on an as-needed basis. Please reconsult with new concerns. Nurse practitioner note has been reviewed by physician. Signing provider agrees with the documented findings, assessment, and plan of care. Past Medical History Past Medical History: Seizure Disorder History of Any Multi-Drug Resistant Organisms: None Reported Additional Past Surgical History / Comment(s): Right leg fracture repair Past Psychological History: No Psychological Hx Reported Smoking Status: Current every day smoker Past Alcohol Use History: None Reported, Daily Past Drug Use History: None Reported - Past Family History Mother Family Medical History: Coronary Artery Disease (CAD) Medications and Allergies Home Medications Medication Instructions Recorded Confirmed Type Metoprolol Tartrate [Lopressor] 100 mg PO BID tab 06/14/21 02/21/22 Rx Hydrocortisone Cream 1 applic TOPICAL BID PRN 12/08/21 02/21/22 History [Hydrocortisone 1% Cream] cloNIDine HCL [Catapres] 0.1 mg PO HS 12/08/21 02/21/22 History cloNIDine HCL [Catapres] 0.2 mg PO DAILY 12/08/21 02/21/22 History lisinopriL [Prinivil] 10 mg PO DAILY 12/08/21 02/21/22 History Triamcinolone 0.1% Cream [Kenalog 1 applic TOPICAL DAILY 02/21/22 02/21/22 History 0.1% Cream] Allergies Allergy/AdvReac Type Severity Reaction Status Date / Time No Known Allergies Allergy Verified 02/21/22 16:09 Physical Exam Vitals: Vital Signs Temp Pulse Pulse Resp BP BP Pulse Ox 03/01/22 03:54 97.7 F 102 H 16 104/73 98 03/01/22 03:52 104 H 03/01/22 03:39 92 03/01/22 00:23 97 03/01/22 00:11 99 97 02/28/22 23:47 98.0 F 90 18 120/78 98 02/28/22 20:24 108 H 02/28/22 20:11 109 H 02/28/22 19:43 98.4 F 109 H 18 108/74 95 02/28/22 16:15 97 02/28/22 16:10 98.2 F 114 H 17 119/79 95 02/28/22 11:50 110 H 02/28/22 11:37 110 H 02/28/22 11:25 104 H 20 108/76 95 02/28/22 08:35 98 F 125 H 18 120/86 95 02/28/22 07:59 100 02/28/22 07:42 98 Intake and Output 02/28/22 03/01/22 03/01/22 22:59 06:59 14:59 Output Total 1300 600 Balance -1300 -600 Output: Urine 1300 600 Straight 480 Other: Voiding Method Indwelling Catheter Indwelling Catheter Results 03/01/22 10:32 03/01/22 10:32 Current Medications Generic Name Dose Route Start Last Admin Trade Name Freq PRN Reason Stop Dose Admin Acetaminophen 650 mg 02/21/22 20:04 Acetaminophen Tab 325 Mg Tab PO Q6HR PRN Mild Pain or Fever > 100.5 Albuterol/Ipratropium 3 ml 02/22/22 00:00 03/01/22 03:39 Ipratropium-Albuterol 3 Ml Neb INHALATION 3 ml RT-Q4H MELLISSA Administration Aspirin 81 mg 02/24/22 21:30 02/28/22 10:16 Aspirin 81 Mg PO Not Given DAILY MELLISSA Famotidine 20 mg 03/01/22 09:00 Famotidine 20 Mg Tab PO DAILY MELLISSA Heparin Sodium (Porcine) 5,000 unit 02/22/22 00:00 02/28/22 23:43 Heparin Sodium,Porcine/Pf 5,000 Unit/0.5 Ml Syringe SQ 5,000 unit Q8HR MELLISSA Administration Piperacillin Sod/Tazobactam 100 mls @ 25 mls/hr 02/22/22 08:00 02/28/22 23:43 Sod 3.375 gm/ Sodium Chloride IVPB 25 mls/hr Q8HR MELLISSA Administration Protocol Dextrose/Water 1,000 mls @ 50 mls/hr 02/26/22 08:15 02/28/22 20:28 Dextrose 5%-Water Iv Soln IV Not Given .Q20H MELLISSA Levetiracetam 1,000 mg 02/28/22 09:00 02/28/22 20:28 Levetiracetam 500 Mg Tab PO 1,000 mg Q12HR MELLISSA Administration Lorazepam 1 mg 02/21/22 15:43 02/23/22 09:33 Lorazepam 2 Mg/Ml Inj IV 1 mg Q1HR PRN Administration CIWA 10 to 15 Lorazepam 1 mg 02/21/22 15:43 02/24/22 03:55 Lorazepam 2 Mg/Ml Inj IV 1 mg Q2HR PRN Administration CIWA 8 or 9 Metoprolol Tartrate 5 mg 02/23/22 19:10 02/28/22 05:21 Metoprolol Tartrate 5 Mg/5 Ml Vial IVP 5 mg Q6HR PRN Administration Tachyarrhythmias Metoprolol Tartrate 50 mg 02/28/22 21:00 02/28/22 20:28 Metoprolol Tartrate 50 Mg Tab PO 50 mg BID MELLISSA Administration Naloxone HCl 0.2 mg 02/21/22 20:04 Naloxone 0.4 Mg/Ml 1 Ml Vial IV Q2M PRN Opioid Reversal Tamsulosin HCl 0.4 mg 02/26/22 08:30 02/28/22 08:39 Tamsulosin 0.4 Mg Cap.Er.24h PO 0.4 mg PC-[id number] MELLISSA Administration Thiamine HCl 100 mg 02/22/22 09:00 02/28/22 08:39 Thiamine 100 Mg Tab PO 100 mg DAILY MELLISSA Administration Intake and Output 02/28/22 03/01/22 03/01/22 22:59 06:59 14:59 Output Total 1300 600 Balance -1300 -600 Output: Urine 1300 600 Straight 480 Other: Voiding Method Indwelling Catheter Indwelling Catheter 02/25/22 07:03 02/27/22 06:55
[2022-03-01] MEDS: HEPARIN SODIUM,PORCINE/PF 5,000 UNIT/0.5 ML SYRINGE SQ SCH ×3 (08:09→23:10)
[2022-03-01] MEDS: TAMSULOSIN 0.4 MG CAP.ER.24H PO SCH (08:30)
[2022-03-01] MEDS: THIAMINE 100 MG TAB PO SCH (08:30)
[2022-03-01] MEDS: ASPIRIN 81 MG PO SCH (08:30)
[2022-03-01] MEDS: FAMOTIDINE 20 MG TAB PO SCH (08:30)
[2022-03-01] MEDS: METOPROLOL TARTRATE 50 MG TAB PO SCH ×2 (08:30→21:15)
[2022-03-01] MEDS: levETIRAcetam 500 MG TAB PO SCH ×2 (08:30→21:14)
--- NOTE | 2022-03-01 09:25 | P.PN ---
Subjective Progress Note Date: 03/01/22 61-year-old male who presents to the emergency room on February 21, via EMS, for possible seizure. The patient has a history of chronic alcohol abuse, and chronic foot wounds. He apparently does have a history of seizure disorder, and is apparently noncompliant with his seizure medications. He apparently presented to the emergency department with acute onset of seizure, earlier on the day of admission, which was February 21. He apparently had 3 different seizure episodes within one hour. When EMS arrived, he apparently was actively seizing. They administered 5 mg of IV Versed, and the seizure stopped. The patient was apparently postictal after that. Since being in the emergency department, the patient has been improving neurologically. He was on BiPAP for a short period of time with settings of 15/5 and 60%, up until about 3:00 in the morning. Now he is on between 6-7 L of nasal oxygen. He is getting saline at keep vein open. Current vital signs include sinus tachycardia with a rate of 138, blood pressure 116/85 respiratory rate 22 and saturations 90-92%. White count 26.4, hemoglobin 13.5, hematocrit 43.6, and platelet count was normal. Most recent blood gases show pO2 71, pCO2 47, and a pH is 7.26. That was on BiPAP at 60%. Troponin was 0.030. Initial pH was 7.12. Sodium 124, potassium 4.9, chlorides 96, CO2 19, BUN 6, creatinine 0.66. Urine screen was positive f or benzodiazepines, and marijuana. Chest x-ray shows patchy airspace disease in the left hilar region, consistent with possible aspiration pneumonia. The patient is seen today 02/23/2022 in follow-up on the selective care unit. He is currently resting fairly comfortably in bed. Somewhat lethargic. He is on BiPAP 15/5 and 60% FiO2 with O2 saturations in the 90s. EEG revealed possible low amplitude sharp appearing waves in the right frontotemporal region. This may suggest underlying cortical irritability intensive for seizures. No seizures were recorded. Blood cultures positive for coag-negative staph. Urine culture negative. White count 21.1. Hemoglobin 12.4. Platelets 331. Sodium 138. Potassium 4.8. BUN 7. Creatinine 0.52. AST 39. ALT 18. He is continued on bronchodilators and Zosyn. Heparin for DVT prophylaxis. Remains in the CIWA protocol. Remains on Keppra. The patient seen today 02/24/2022 in follow-up on the selective care unit. He is currently sitting up in bed. More awake and arousable. Currently on 5 L high flow nasal cannula. He has been alternating with BiPAP 15/5 and 60% FiO2. He has normal saline at 50 MLS per hour. Maintained on Zosyn. Bronchodilators. Heparin for DVT prophylaxis. No seizure activity. Remains in CIWA protocol. Last Ativan requirement at 4 AM this morning. The cultures positive for coag- negative staph. White count 15.4. Hemoglobin 11.1. Platelets 325. Sodium 139. Potassium 3.8. BUN 9. Creatinine 0.75. The patient is seen today 02/25/2022 in follow-up on the selective care unit. He is more awake and alert today. Denies any worsening shortness of breath, cough or congestion. Currently maintaining O2 saturations in the 90s on 5 L/m per nasal cannula. He had initially been on BiPAP 5 over 5 and 60% FiO2. Chest x-ray revealed worsening scattered airspace opacities with a new right lower lobe collapse. MRI of the brain revealed right hippocampus and fungus restricted diffusion favoring sequela patient seizure. Generalized atrophy changes and mild nonspecific white matter changes secondary to small vessel ischemic disease. Moderate paranasal sinus disease. Carotid Dopplers revealed less than 50% stenosis bilaterally. Blood cultures revealed coag-negative staph. White count 11.8. Hemoglobin 11.2. Sodium 143. Potassium 3.9. BUN 12. Creatinine 0.57. He remains on DuoNeb inhalations. Antibiotics in the form of Zosyn. Heparin for DVT prophylaxis. Remains on Keppra. Normal saline at 100 ML's per hour. No seizure activity. The patient is seen today 02/26/2022 in follow-up on the selective care unit. He is currently resting comfortably in bed. Awake and alert in no acute distress. He is maintaining O2 saturations in the 90s on 5 L/m per nasal cannula. D545 at 75 ML's per hour. He is continued on bronchodilators. Continue on heparin for DVT prophylaxis. Remains on antibiotics in the form of Zosyn. Follow-up blood cultures revealing no growth. Urine culture revealed no growth. No seizure activity. The patient is seen today 02/27/2022 in follow-up on the selective care unit. He is sitting up in bed. Awake and alert in no acute distress. Currently on Bi PAP 15/5 on 40% FiO2 alternating with 5 L high flow nasal cannula. Receiving D5 W at 50 MLS per hour Follow-up blood cultures revealed no growth. Sodium 143. Potassium 4.8. Chloride 116. BUN 13. Creatinine 0.51. Glucose 103. The plan is for a barium swallow today. She remains on bronchodilators, Zosyn, heparin for DVT prophylaxis. Continue to CIMI protocol. No seizures noted. The patient is seen today 02/28/2022 in follow-up on the selective care unit. He is sitting up in bed. Awake and alert in no acute distress. Currently maintaining O2 saturations in the 90s on 2 L/m per nasal cannula. His main complaint is that of fatigue. No worsening shortness of breath, cough or conge stion. No seizure activity. He's been afebrile. Hemodynamically stable. Chest x-ray reveals moderate central vascular congestion with small to moderate right pleural effusion and tiny left pleural effusion. He has D5W at 75 mL per hour. Follow-up blood culture reveals no growth. Urine culture revealed no growth. ProBNP 18,500. Has only been in a -135 mL balance. Currently on bronchodilators. Antibiotics in the form of Zosyn. Heparin for DVT prophylaxis. On 03/01/2022, the patient is being seen for a follow-up. Remains on O2 at 2 L and has a BiPAP at the bedside. Breath sounds are quite diminished bilaterally and the patient is a chronic smoker. No chest pain. He has a congested cough. No aspiration. The patient is on Lasix and the patient was switched to oral Lasix 20 mg by mouth daily. He has a incentive spirometer. He also has a flutter valve. IV fluids are in the form of normal saline at rate of 50 mL an hour. He has a chronic smoker. He is using DuoNeb nebulized treatments and this will be switched to [id number] every 4 hours. He is on heparin subcu for DVT prophylaxis. No other significant events otherwise for now. No seizure activity. He has chronic alcoholism in his been a chronic smoker. Objective - Vital Signs Vital signs: Vital Signs Temp 97.9 F 03/01/22 08:25 Pulse 117 H 03/01/22 08:25 Resp 18 03/01/22 08:25 BP 120/78 03/01/22 08:25 Pulse Ox 95 03/01/22 08:25 FiO2 40 02/27/22 15:56 Intake & Output 02/28/22 03/01/22 03/01/22 18:59 06:59 18:59 Intake Total 540 Output Total 3400 600 Balance -2860 -600 Weight 58.967 kg Intake: Oral 540 Output: Urine 3400 600 Straight 480 Other: Voiding Method Indwelling Catheter Indwelling Catheter Indwelling Catheter - Exam GENERAL EXAM: Awake, alert, 61-year-old male, sitting up in bed, on 2 L nasal cannula, comfortable in no apparent distress. HEAD: Normocephalic. EYES: Normal reaction of pupils, equal size. NOSE: Clear with pink turbinates. THROAT: No erythema or exudates. NECK: No masses, no JVD. CHEST: No chest wall deformity. LUNGS: Equal air entry with bilateral scattered rhonchi and crackles in the bases right greater than left. CVS: S1 and S2 normal with no audible murmur, regular rhythm. ABDOMEN: No hepatosplenomegaly, normal bowel sounds, no guarding or rigidity. SPINE: No scoliosis or deformity SKIN: No rashes CENTRAL NERVOUS SYSTEM: Alert, tone is normal in all 4 extremities. EXTREMITIES: Scaly patches on the bottom of the feet. There is no peripheral edema. No clubbing, no cyanosis. Peripheral pulses are intact. - Labs CBC & Chem 7: 02/25/22 07:03 02/27/22 06:55 Labs: Microbiology - Last 24 Hours (Table) 02/25/22 07:03 Blood Culture - Preliminary Blood No Growth after 72 hours Assessment and Plan Plan: Recurrent seizure activity, and the patient noncompliant with epilepsy medications. MRI of the brain revealed right hippocampus and uncus restricted diffusion favoring sequela of patient's seizures. Acute hypoxemic respiratory failure secondary to suspected aspiration pneumonia, with increasing right lower lobe collapse. Barium swallow from 02/27/2022 revealed no penetration or aspiration identified, currently on 2 L of oxygen by nasal cannula, chest x-ray still showing evidence of pulmonary edema with poss ible bilateral pleural effusion and increased infiltration of the right more than left. The patient is currently on 2 L of oxygen by nasal cannula utilizing BiPAP overnight.the patient completed a course of IV Zosyn and currently the patient is off antibiotics. Suspect underlying systolic congestive heart failure with previous echocardiogram revealing ejection fraction of 40-45%, proBNP greater than 18,000, received diuretics during his course in the intensive care unit History of chronic tobacco use and nicotine dependence. History of hypertension. History of chronic alcohol abuse. History of marijuana use. Chronic wounds, lower extremities. Plan: Barium swallow revealed no aspiration Overall respiratory status is stable currently on 2 L of O2 nasal cannula Awaiting the results of the echocardiogram Repeat chest x-ray in the morning Continue bronchodilators Continue flutter valve, CPT to right chest We'll continue to follow
[2022-03-01] MEDS ORDERED: FUROSEMIDE 40 MG TAB PO SCH (09:30)
--- NOTE | 2022-03-01 09:53 | CA ---
Transthoracic Echo Report Name: Blaise Sandoval Age: 61 Gender: M : 1960 Exam Date: 02/28/2022 14:17 Exam Location: [facility] Ht (in): 69 Wt (lb): 130 Ordering Physician: Jennifer Stone Attending/Referring Phys: Planishing Hammer Operator Yvette Villar RDCS Procedure CPT: Indications: chf Cardiac Hx: Technical Quality: Contrast 1: Total Dose (mL): Contrast 2: Total Dose (mL): MEASUREMENTS (Male / Female) Normal Values 2D ECHO LV Diastolic Diameter PLAX 4.3 cm 4.2 - 5.9 / 3.9 - 5.3 cm LV Systolic Diameter PLAX 2.7 cm IVS Diastolic Thickness 1.2 cm 0.6 - 1.0 / 0.6 - 0.9 cm LVPW Diastolic Thickness 1.5 cm 0.6 - 1.0 / 0.6 - 0.9 cm LV Relative Wall Thickness 0.6 RV Internal Dim ED PLAX 3.2 cm LA Systolic Diameter LX 3.0 cm 3.0 - 4.0 / 2.7 - 3.8 cm LV Diastolic Volume MOD BP 67.7 cm??? 67 - 155 / 56 - 104 cm??? LV Systolic Volume MOD BP 40.4 cm??? 22 - 58 / 19 - 49 cm??? LV Ejection Fraction MOD BP 40.3 % >= 55 % LV Diastolic Volume MOD 4C 58.9 cm??? LV Systolic Volume MOD 4C 30.6 cm??? LV Ejection Fraction MOD 4C 48.0 % LV Diastolic Length 4C 7.3 cm LV Systolic Length 4C 7.2 cm LV Diastolic Volume MOD 2C 67.7 cm??? LV Systolic Volume MOD 2C 49.2 cm??? LV Ejection Fraction MOD 2C 27.4 % LV Diastolic Length 2C 8.5 cm LV Systolic Length 2C 8.0 cm M-MODE MV E Point Septal Separation 0.2 cm DOPPLER MV Deceleration Time 138.6 ms TR Peak Velocity 254.1 cm/s TR Peak Gradient 25.8 mmHg Right Ventricular Systolic Press 30.1 mmHg FINDINGS Left Ventricle Mildly increased septal wall thickness. Moderately decreased left ventricular ejection fraction. Left ventricular ejection fraction is estimated at 30%. Apical septal, Lateral, Inferior hypokinesis. Right Ventricle Normal right ventricular size and function. Mild pulmonary hypertension. Right Atrium Normal right atrial size. Left Atrium Normal left atrial size. Mitral Valve Structurally normal mitral valve. Mild mitral regurgitation. Aortic Valve Trileaflet aortic valve. Aortic valve sclerosis. Mild aortic regurgitation. Tricuspid Valve Structurally normal tricuspid valve. Mild tricuspid regurgitation. Pulmonic Valve Structurally normal pulmonic valve. Pericardium No pericardial effusion. Aorta Normal size aortic root and proximal ascending aorta. CONCLUSIONS Left ventricular ejection fraction 30% with apical septal, lateral, inferior hypokinesis Mild increased left ventricular wall thickness RVSP 30 Mild aortic regurgitation Mild mitral regurgitation Mild tricuspid regurgitation No pericardial effusion Previewed by: Dr. Alfie Buenrostro DO (Electronically Signed) Final Date: 01 March 2022 09:52
[2022-03-01] MEDS: PIPERACILLIN-TAZOBACTAM 3.375 GM in SODIUM CHLORIDE 0.9% 100 ML IVPB SCH (10:11)
[2022-03-01 10:49] LABS: Basophils % (A) 0 %; Eosinophils % (A) 0 %; HCT 33.2 % (39.0-53.0); HGB 10.7 gm/dL (13.0-17.5); Hypochromasia Slight; Lymphocytes # (A) 0.7 k/uL (1.0-4.8); Lymphocytes % (A) 5 %; MCH 30.2 pg (25.0-35.0); MCHC 32.4 g/dL (31.0-37.0); MCV 93.2 fL (80.0-100.0); Mean Platelet Volume 8.8; Monocytes # (A) 0.8 k/uL (0-1.0); Monocytes % (A) 5 %; Neutrophils # (A) 12.9 k/uL (1.3-7.7); Neutrophils % (A) 88 %; Platelet Count 291 k/uL (150-450); RBC 3.56 m/uL (4.30-5.90); WBC 14.7 k/uL (3.8-10.6)
[2022-03-01 10:58] LABS: African American GFR (CKD) >90 (>60 ml/min/1.73 sqM); Anion Gap 5 mmol/L; Blood Urea Nitrogen 7 mg/dL (9-20); Calcium 7.5 mg/dL (8.4-10.2); Carbon Dioxide 29 mmol/L (22-30); Chloride 102 mmol/L (98-107); Glucose 124 mg/dL (74-99); Non-African American GFR(CKD) >90 (>60 ml/min/1.73 sqM); Potassium 2.8 mmol/L (3.5-5.1); Sodium 136 mmol/L (137-145)
--- NOTE | 2022-03-01 13:09 | P.PN ---
Subjective Progress Note Date: 03/01/22 The patient stated she still feel generalized weakness. His lumbar puncture is still pending. Objective - Vital Signs Vital signs: Vital Signs Temp 97.8 F 03/01/22 12:35 Pulse 101 H 03/01/22 12:35 Resp 16 03/01/22 12:35 BP 115/76 03/01/22 12:35 Pulse Ox 97 03/01/22 12:35 FiO2 40 02/27/22 15:56 Intake & Output 02/28/22 03/01/22 03/01/22 18:59 06:59 18:59 Intake Total 540 Output Total 3400 600 Balance -2860 -600 Weight 58.967 kg Intake: Oral 540 Output: Urine 3400 600 Straight 480 Other: Voiding Method Indwelling Catheter Indwelling Catheter Indwelling Catheter - Exam GENERAL: The patient is lying in bed and is not in acute distress. LUNG: On BiPAP. NEUROLOGICAL: Higher mental function: The patient is awake, alert, oriented to self, place and time. Patient is following commands. No aphasia and no neglect. Cranial nerves: The pupils are round, equal and reactive to light. Visual wang are full to confrontation throughout. Extraocular movement is intact no nystagmus is noted. Facial sensation is normal to touch throughout. The facial strength is normal throughout. No dysarthria is noted. Motor: The strength is 5 over 5 throughout. Normal tone and bulk. Cerebellum: Normal finger to nose bilaterally. Sensation: Sensation is normal to touch throughout. - Labs CBC & Chem 7: 03/01/22 10:32 03/01/22 10:32 Labs: Abnormal Lab Results - Last 24 Hours (Table) 03/01/22 03/01/22 Range/Units 10:32 10:32 WBC 14.7 H (3.8-10.6) k/uL RBC 3.56 L (4.30-5.90) m/uL Hgb 10.7 L (13.0-17.5) gm/dL Hct 33.2 L (39.0-53.0) % Neutrophils # 12.9 H (1.3-7.7) k/uL Lymphocytes # 0.7 L (1.0-4.8) k/uL Sodium 136 L (137-145) mmol/L Potassium 2.8 L (3.5-5.1) mmol/L BUN 7 L (9-20) mg/dL Creatinine 0.55 L (0.66-1.25) mg/dL Glucose 124 H (74-99) mg/dL Calcium 7.5 L (8.4-10.2) mg/dL Microbiology - Last 24 Hours (Table) 02/25/22 07:03 Blood Culture - Preliminary Blood No Growth after 96 hours Assessment and Plan Assessment: * Seizure disorder, came with recurrent seizures (3). Seizures aborted with Versed 5 mg IV push---clinically stable. Seems possibly due to alcohol withdrawal (Presented with alcohol <10 to our facility) * Abnormal brain MRI, with abnormal signal with restricted diffusion in the right hippocampus and uncus. Probably favors sequela of patient's seizure. * Heavy alcohol use. He stated he drinks at least 4 beers daily or more. Patient also takes Klonopin regularly, denies running out of it. * Dysphagia, unclear cause. Patient failed swallow. * Pneumonia * Bacteremia with staph coagulase-negative, felt to be contaminant-per ID. * Feet ulcers * Tobacco use * Marijuana use * Coronary artery disease Plan: * EEG was abnormal due to presence of low amplitude sharp-appearing waves in the right frontotemporal region. This may suggest underlying cortical irritability and tendency for seizures. No electrographic seizure was recorded. * MRI of the brain without contrast revealed right hippocampus and uncus restric nathan diffusion is favored to represent sequela of patient's seizure. Other differential includes mesial temporal sclerosis, however it is felt to be less likely given no significant atrophic changes. Other etiologies include limbic encephalitis. Short-term follow-up MRI is recommended. I personally reviewed MRI, agree with the findings. * 2-D echo from 03/24/2021 revealed normal left ventricular size, moderate concentric LVH. EF is mild to moderately impaired 40-45%. Normal left atrial size. Mild aortic valve sclerosis with trace to mild AR. * Carotid Doppler revealed less than 50% stenosis of bilateral carotid bifurcation. Antegrade flow right vertebral artery. Left vertebral unable to visualize. * Continue Keppra. Patient has received a loading dose of Keppra 2000 mg in the ER, and will be maintained on Keppra 1000 mg twice a day. Patient has failed swallow. Will switch back to IV form of Keppra. * Per speech therapist he was able to swallow and placed him on diet. MRI of the brain did reveal abnormal signal suspicious for seizure related versus CVA. * He was started on aspirin [address] Sharma as stroke prophylaxis since there is abnormal signal on DWI in the right hippocampus. In my opinion the abnormal signal is due to his seizure. But can resum ASA 81mg daily since carotids <50% stenosis. * Dr. Sharma consulted Pain specialist for Lumbar puncture, rule out encephalitis (less likely with improving mentation) and ordered NMDA antibodies. * For pneumonia, patient currently on Zosyn. ID following. * Continue Thiamine 100mg daily. * Per [place] DMV because of seizures, No driving for 6 months until seizure free, climbing ladders, operating dangerous machineries or swimming. * Recommended abstinence from alcoholism, marijuana and tobacco use. Plan is discussed with patient and his nurse. Time with Patient: Less than 30
--- NOTE | 2022-03-01 15:40 | P.PN ---
Subjective Progress Note Date: 03/01/22 Principal diagnosis: Acute hypoxemic respiratory failure Aspiration pneumonia Recurrent seizure activity 61-year-old male with a known history of seizure disorder, currently with a smoker and current alcohol abuse and currently not on any antiepileptic drugs was brought to ER by ambulance due to seizures.. Patient was also having chronic foot wounds and is on follow-up with wound care center. Patient is also noncompliant with follow-up and medications. Apparently patient had 3 episodes of seizures within an hour and has been acting differently. Patient's parents called EMS. Upon arrival to the ER patient was having leftward gaze deviation and was actively seizing. Patient was given 5 mg of IV Versed and seizure stopped. Patient was postictal. Patient is still drowsy and lethargic and unable to provide history. CT head and cervical spine showed no acute intracranial process. Nonspecific white matter changes likely secondary to chronic small vessel ischemic disease. No evidence of cervical spine fracture. Mild COPD changes with intralobular septal thickening and patchy groundglass opacities within the bilateral upper lobes concerning for infectious/infectious inflammatory process. Chest x-ray showed multifocal airspace opacities most pronounced on the left hilar region. Findings concerning for pneumonia. Foot x-ray showed no evidence of acute fracture. No osteomyelitis. Multifocal osteoarthrosis changes. EKG showed sinus tachycardia. Laboratory data showed WBC 18.6 hemoglobin 13.1 and lipase 471 2124 potassium 4.9 chloride 96 bicarb is 19 BUN 16 creatinine 0.66 and blood sugar is 2631 lactic acid 7.9 and albumin 2.9 serum alcohol level is less than 10 and influenza AB and RSV PCR and COVID-19 not detected. Patient is currently ER and requiring oxygen at 6 L via nasal cannula. 24 hour interval change 03/01/2022 Patient is seen and evaluated in follow-up on the selective care unit. Awake and alert in no acute distress; maintaining O2 saturations in the 90s on 2 L/m per nasal cannula. His main complaint is that of fatigue. No worsening shortness of breath, cough or congestion. -- Chest x-ray reveals moderate central vascular congestion with small to moderate right pleural effusion and tiny left pleural effusion. He has D5W at 75 mL per hour. - Follow-up blood culture reveals no growth. Urine culture revealed no growth. ProBNP 18,500. Patient received Lasix 40 mg IV 1; echocardiogram is recommended - Currently on bronchodilators. Antibiotics in the form of Zosyn. Heparin for DVT prophylaxis. Patient underwent radium swallow which did not reveal any aspiration -- patient was switched to oral Lasix 20 mg by mouth daily. He has a incentive spirometer. He also has a flutter valve. IV fluids are in the form of normal saline at rate of 50 mL an hour. He has a chronic smoker. He is using DuoNeb nebulized treatments and this will be switched to [id number] every 4 hours. - Pulmonary service recommending to continue with current management with furt her recommendations once echocardiogram results aren't available -- Patient has been evaluated by cardiology for tachycardia and metoprolol has been resumed at 100 mg twice a day - Patient is recommended abstinence from alcohol and tobacco use -- Possible discharge in next 24 hours once cleared by pulmonary service Objective - Vital Signs Vital signs: Vital Signs Temp 97.9 F 03/01/22 08:25 Pulse 117 H 03/01/22 08:25 Resp 18 03/01/22 08:25 BP 120/78 03/01/22 08:25 Pulse Ox 95 03/01/22 08:25 FiO2 40 02/27/22 15:56 Intake & Output 02/28/22 03/01/22 03/01/22 18:59 06:59 18:59 Intake Total 540 Output Total 3400 600 Balance -2860 -600 Weight 58.967 kg Intake: Oral 540 Output: Urine 3400 600 Straight 480 Other: Voiding Method Indwelling Catheter Indwelling Catheter Indwelling Catheter - Exam GENERAL: The patient is alert and oriented x2, not in any acute distress. Well developed, well nourished. on 5l nasal cannula. HEENT: Pupils are round and equally reacting to light. EOMI. No scleral icterus. No conjunctival pallor. Normocephalic, atraumatic. No pharyngeal erythema. No thyromegaly. CARDIOVASCULAR: S1 and S2 present. No murmurs, rubs, or gallops. PULMONARY: Coarse scattered rhonchi ABDOMEN: Soft, nontender, nondistended, normoactive bowel sounds. No palpable organomegaly. MUSCULOSKELETAL: No joint swelling or deformity. EXTREMITIES: No cyanosis, clubbing, or pedal edema. NEUROLOGICAL: Gross neurological examination did not reveal any focal deficits. SKIN: No rashes. - Labs CBC & Chem 7: 03/01/22 10:32 03/01/22 10:32 Labs: Microbiology - Last 24 Hours (Table) 02/25/22 07:03 Blood Culture - Preliminary Blood No Growth after 96 hours Assessment and Plan Assessment: Acute Seizure disorder with hx of recurrent seizures. Noncompliant with medications. Bilateral upper lobe pneumonia concerning for aspiration pneumonia Sepsis secondary above Severe lactic acidosis 7.9 on admission Acute hypoxemic respiratory failure was on BIPAP currently requiring 5L nasal cannula Hypovolemic hyponatremia Alcohol abuse History of marijuana use Ongoing nicotine addiction Coagulase-negative staph aureus bacteremia likely contamination Hypertension Sinus tachycardia Chronic lower extremity skin changes/wounds. DVT prophylaxis Heparin subcu GI prophylaxis Full Code Plan: Currently maintained on oxygen support 5L nasal cannula Patient was started on Keppra 1000 mg twice daily and continue with neurochecks and seizure and fall precautions. IV Ativan as needed for seizures. Continues on CIWA, monitor for alcohol withdrawal symptoms. Continue thiamine and multivitamins. Patient was given 1 dose of vancomycin. Continue with Zosyn and follow-up culture reports. Continue with NPO pending further recommendations from speech therapy possible barium swallow Maintain aspiration precautions with head of bed up 30* at all times. Continue IV fluids, IV lopressor Neurology, pulmonary and ID is on board. PT and OT consultation in place.
[2022-03-01] MEDS: DEXTROSE 5% IN WATER 1,000 ML IV SCH (16:43)
[2022-03-01] MEDS: POTASSIUM CHLORIDE ER 20 MEQ TAB.ER PO SCH ×3 (17:09→21:14)
[2022-03-02] MEDS: IPRATROPIUM-ALBUTEROL 3 ML NEB INHALATION SCH ×5 (03:37→20:29)
[2022-03-02 07:50] LABS: Basophils % (A) 0 %; Eosinophils # (A) 0.1 k/uL (0-0.7); Eosinophils % (A) 1 %; HCT 32.4 % (39.0-53.0); HGB 9.8 gm/dL (13.0-17.5); Hypochromasia Moderate; Lymphocytes # (A) 1.2 k/uL (1.0-4.8); Lymphocytes % (A) 10 %; MCH 28.7 pg (25.0-35.0); MCHC 30.3 g/dL (31.0-37.0); MCV 94.7 fL (80.0-100.0); Monocytes # (A) 0.8 k/uL (0-1.0); Monocytes % (A) 7 %; Neutrophils # (A) 9.6 k/uL (1.3-7.7); Neutrophils % (A) 80 %; Platelet Count 315 k/uL (150-450); RBC 3.42 m/uL (4.30-5.90); WBC 11.9 k/uL (3.8-10.6)
--- NOTE | 2022-03-02 08:00 | P.PN ---
Subjective Progress Note Date: 03/01/22 Principal diagnosis: Aspiration pneumonia Patient is a 61-year-old male with a past medical history significant for chronic on both abuse seizure disorder noncompliant with his seizure medication patient was brought into the ER with acute onset of seizure , patient did have elevated white count and evidence of multifocal infiltrating mostly in the left perihilar region concerning for possible aspiration pneumonia. On today's evaluation that is 03/01/2022, the patient remains to be afebrile, the patient is breathing comfortably on 2 L nasal cannula , the patient denies any chest pain , the patient continued to have a cough but not able to bring up any sputum no nausea no vomiting no abdominal pain or diarrhea Objective - Vital Signs Vital signs: Vital Signs Temp 97.8 F 03/01/22 12:35 Pulse 101 H 03/01/22 12:35 Resp 16 03/01/22 12:35 BP 115/76 03/01/22 12:35 Pulse Ox 97 03/01/22 12:35 FiO2 40 02/27/22 15:56 Intake & Output 02/28/22 03/01/22 03/01/22 18:59 06:59 18:59 Intake Total 540 Output Total 3400 600 Balance -2860 -600 Weight 58.967 kg Intake: Oral 540 Output: Urine 3400 600 Straight 480 Other: Voiding Method Indwelling Catheter Indwelling Catheter Indwelling Catheter - Exam GENERAL DESCRIPTION: Middle-aged male lying in bed in no distress RESPIRATORY SYSTEM: Unlabored breathing , decreased breath sounds at bases HEART: S1 S2 regular rate and rhythm , ABDOMEN: Soft , no tenderness EXTREMITIES: No edema feet - Labs CBC & Chem 7: 03/02/22 06:55 03/01/22 10:32 Labs: Abnormal Lab Results - Last 24 Hours (Table) 03/01/22 03/01/22 Range/Units 10:32 10:32 WBC 14.7 H (3.8-10.6) k/uL RBC 3.56 L (4.30-5.90) m/uL Hgb 10.7 L (13.0-17.5) gm/dL Hct 33.2 L (39.0-53.0) % Neutrophils # 12.9 H (1.3-7.7) k/uL Lymphocytes # 0.7 L (1.0-4.8) k/uL Sodium 136 L (137-145) mmol/L Potassium 2.8 L (3.5-5.1) mmol/L BUN 7 L (9-20) mg/dL Creatinine 0.55 L (0.66-1.25) mg/dL Glucose 124 H (74-99) mg/dL Calcium 7.5 L (8.4-10.2) mg/dL Microbiology - Last 24 Hours (Table) 02/25/22 07:03 Blood Culture - Preliminary Blood No Growth after 96 hours Assessment and Plan (1) Pneumonia Current Visit: Yes Status: Acute Code(s): J18.9 - PNEUMONIA, UNSPECIFIED ORGANISM SNOMED Code(s): 268471120 Plan: 1patient presented to hospital with active seizures in this patient now with evidence of multifocal pneumonia mostly left perihilar region did have elevated vital concerning for pneumonia of aspiration etiology. 2positive blood culture finalized as staph epi likely skin contamination blood cultures repeated 02/25/2022 so far negative. 3patient did have a clinical improvement and currently being treated with the Zosyn along with aspiration precaution and plan is to finish therapy with oral antibiotics on discharge
[2022-03-02 08:12] LABS: African American GFR (CKD) >90 (>60 ml/min/1.73 sqM); Anion Gap 3 mmol/L; Blood Urea Nitrogen 6 mg/dL (9-20); Calcium 7.5 mg/dL (8.4-10.2); Carbon Dioxide 29 mmol/L (22-30); Chloride 103 mmol/L (98-107); Glucose 92 mg/dL (74-99); Non-African American GFR(CKD) >90 (>60 ml/min/1.73 sqM); Potassium 3.3 mmol/L (3.5-5.1); Sodium 135 mmol/L (137-145)
--- NOTE | 2022-03-02 08:23 | XR ---
EXAMINATION TYPE: XR chest 1V portable DATE OF EXAM: 03/02/2022 Comparison: 02/28/2022 Clinical History: 61-year-old male shortness of breath Findings: Heart mildly enlarged. Retrocardiac opacity persists. Additional left basilar opacity shows slight im provement. Ongoing right mid and lower lung opacity. Impression: Similar mild cardiomegaly. Retrocardiac and left basilar opacity is slightly improved. Similar right mid and lower lung opacity.
--- NOTE | 2022-03-02 08:41 | P.PN ---
Progress Note - Text Progress Note Date: 03/02/22 The patient is a 61-year-old male with gross hematuria after attempted catheter placement for accurate I's and O's. Patient had low urine output. Attempted catheter placement by nurses was unsuccessful. His gross hematuria was most likely secondary to catheter trauma. Dr. Mclaughlin placed a 16-Korean coud catheter was placed without any difficulties. His hematuria has resolved and his Calle catheter is draining clear yellow urine. Flomax was started on 02/26. The Calle catheter may be removed for a voiding trial if ok with primary team. - Remove Calle catheter when ok with primary - Continue Flomax - Obtain PVR Impression and plan of care have been directed as dictated by the signing physician. Kaley Brooks nurse practitioner acting as scribe for signing physician. Kaley Brooks [facility] [id number] Email: [email or web address] The patient has been reviewed as has the note dictated. I concur with the above-mentioned note. Jerod Ashraf M.D.
[2022-03-02] MEDS ORDERED: Magnesium Replacement Protocol 1 EACH MISC MISCELLANE PRN (08:57)
--- NOTE | 2022-03-02 09:05 | P.PN ---
Subjective From the records: 61-year-old male with a known history of seizure disorder, currently with a smoker and current alcohol abuse and currently not on any antiepileptic drugs was brought to ER by ambulance due to seizures.. Patient was also having c hronic foot wounds and is on follow-up with wound care center. Patient is also noncompliant with follow-up and medications. Apparently patient had 3 episodes of seizures within an hour and has been acting differently. Patient's parents called EMS. Upon arrival to the ER patient was having leftward gaze deviation and was actively seizing. Patient was given 5 mg of IV Versed and seizure stopped. Patient was postictal. Patient is still drowsy and lethargic and unable to provide history. CT head and cervical spine showed no acute intracranial process. Nonspecific white matter changes likely secondary to chronic small vessel ischemic disease. No evidence of cervical spine fracture. Mild COPD changes with intralobular septal thickening and patchy groundglass opacities within the bilateral upper lobes concerning for infectious/infectious inflammatory process. Chest x-ray showed multifocal airspace opacities most pronounced on the left hilar region. Findings concerning for pneumonia. Foot x-ray showed no evidence of acute fracture. No osteomyelitis. Multifocal osteoarthrosis changes. EKG showed sinus tachycardia. Laboratory data showed WBC 18.6 hemoglobin 13.1 and lipase 471 2124 potassium 4.9 chloride 96 bicarb is 19 BUN 16 creatinine 0.66 and blood sugar is 2631 lactic acid 7.9 and albumin 2.9 serum alcohol level is less than 10 and influenza AB and RSV PCR and COVID-19 not detected. Patient is currently ER and requiring oxygen at 6 L via nasal cannula. 24 hour interval change 03/01/2022 Patient is seen and evaluated in follow-up on the selective care unit. Awake and alert in no acute distress; maintaining O2 saturations in the 90s on 2 L/m per nasal cannula. His main complaint is that of fatigue. No worsening shortness of breath, cough or congestion. -- Chest x-ray reveals moderate central vascular congestion with small to modera te right pleural effusion and tiny left pleural effusion. He has D5W at 75 mL per hour. - Follow-up blood culture reveals no growth. Urine culture revealed no growth. ProBNP 18,500. Patient received Lasix 40 mg IV 1; echocardiogram is recommended - Currently on bronchodilators. Antibiotics in the form of Zosyn. Heparin for DVT prophylaxis. Patient underwent radium swallow which did not reveal any aspiration -- patient was switched to oral Lasix 20 mg by mouth daily. He has a incentive spirometer. He also has a flutter valve. IV fluids are in the form of normal saline at rate of 50 mL an hour. He has a chronic smoker. He is using DuoNeb nebulized treatments and this will be switched to [id number] every 4 hours. - Pulmonary service recommending to continue with current management with further recommendations once echocardiogram results aren't available -- Patient has been evaluated by cardiology for tachycardia and metoprolol has been resumed at 100 mg twice a day - Patient is recommended abstinence from alcohol and tobacco use -- Possible discharge in next 24 hours once cleared by pulmonary service 03/02/2022 Patient is a pleasant 61 years old male with multiple medical problems was presented initially with breakthrough seizure, patient has insight. He denies any specific symptoms. Patient has been followed by neurologist and Then [facility], MRI of the brain showing sequelae of seizures with neurological deficits and suspicious for CVA felt less likely by neurologist. Lumbar puncture still pending. Other than that patient reports improvement, he is eating better, no respiratory symptoms, his weakness is better. Calle catheter still in place which was placed on 02/25. Patient denies any depression. Objective - Vital Signs Vital signs: Vital Signs Temp 98.0 F 03/02/22 03:49 Pulse 98 03/02/22 03:49 Resp 18 03/02/22 03:49 BP 118/76 03/02/22 03:49 Pulse Ox 95 03/02/22 03:49 FiO2 40 02/27/22 15:56 Intake & Output 03/01/22 03/02/22 03/02/22 18:59 06:59 18:59 Output Total 600 300 Balance -600 -300 Output: Urine 600 300 Other: Voiding Method Indwelling Catheter Indwelling Catheter - Exam -GENERAL: The patient is alert and oriented x3, not in any acute distress. Well developed, well nourished. Generally weak HEENT: Pupils are round and equally reacting to light. EOMI. No scleral icterus. No conjunctival pallor. Normocephalic, atraumatic. No pharyngeal erythema. No t hyromegaly. CARDIOVASCULAR: S1 and S2 present. No murmurs, rubs, or gallops. PULMONARY: Chest is clear to auscultation, no wheezing or crackles. ABDOMEN: Soft, nontender, nondistended, normoactive bowel sounds. No palpable organomegaly. MUSCULOSKELETAL: No joint swelling or deformity. EXTREMITIES: No cyanosis, clubbing, or pedal edema. NEUROLOGICAL: Gross neurological examination did not reveal any focal deficits. SKIN: No rashes. no petechiae. - Labs CBC & Chem 7: 03/02/22 06:55 03/02/22 06:55 Labs: Abnormal Lab Results - Last 24 Hours (Table) 03/01/22 03/01/22 03/02/22 Range/Units 10:32 10:32 06:55 WBC 14.7 H 11.9 H (3.8-10.6) k/uL RBC 3.56 L 3.42 L (4.30-5.90) m/uL Hgb 10.7 L 9.8 L (13.0-17.5) gm/dL Hct 33.2 L 32.4 L (39.0-53.0) % MCHC 30.3 L (31.0-37.0) g/dL Neutrophils # 12.9 H 9.6 H (1.3-7.7) k/uL Lymphocytes # 0.7 L (1.0-4.8) k/uL Sodium 136 L (137-145) mmol/L Potassium 2.8 L (3.5-5.1) mmol/L BUN 7 L (9-20) mg/dL Creatinine 0.55 L (0.66-1.25) mg/dL Glucose 124 H (74-99) mg/dL Calcium 7.5 L (8.4-10.2) mg/dL 03/02/22 Range/Units 06:55 WBC (3.8-10.6) k/uL RBC (4.30-5.90) m/uL Hgb (13.0-17.5) gm/dL Hct (39.0-53.0) % MCHC (31.0-37.0) g/dL Neutrophils # (1.3-7.7) k/uL Lymphocytes # (1.0-4.8) k/uL Sodium 135 L (137-145) mmol/L Potassium 3.3 L (3.5-5.1) mmol/L BUN 6 L (9-20) mg/dL Creatinine 0.48 L (0.66-1.25) mg/dL Glucose (74-99) mg/dL Calcium 7.5 L (8.4-10.2) mg/dL Microbiology - Last 24 Hours (Table) 02/25/22 07:03 Blood Culture - Preliminary Blood No Growth after 96 hours Assessment and Plan Assessment: Acute Seizure disorder with hx of recurrent seizures. Noncompliant with medications. Bilateral upper lobe pneumonia concerning for aspiration pneumonia Sepsis secondary above Severe lactic acidosis 7.9 on admission Acute hypoxemic respiratory failure was on BIPAP currently requiring 2L nasal cannula hyponatremia Alcohol abuse History of marijuana use Ongoing nicotine addiction Coagulase-negative staph aureus bacteremia likely contamination Hypertension Sinus tachycardia Chronic lower extremity skin changes/wounds. Plan: Discontinue D5 W sodium is 135 Neurologist service recommended lumbar puncture which is pending MRI of the brain is reviewed. Neurologist recommended short-term follow-up MRI Continue with Keppra Continue with blood pressure medication Continue with Lasix. Cardiology team already sent of the case. Labs and medication were reviewed.. Continue same treatment. Continue with symptomatic treatment. Resume home medication. Monitor labs and vitals. DVT and GI prophylaxis. Further recommendations as per clinical course of the patient DVT prophylaxis: Subcutaneous heparin GI Prophylaxis: Pepcid PT/OT: Pending Prognosis is guarded
[2022-03-02] MEDS: PIPERACILLIN-TAZOBACTAM 3.375 GM in SODIUM CHLORIDE 0.9% 100 ML IVPB SCH ×3 (09:13→23:19)
[2022-03-02] MEDS: levETIRAcetam 500 MG TAB PO SCH ×2 (09:15→20:12)
[2022-03-02] MEDS: METOPROLOL TARTRATE 50 MG TAB PO SCH ×2 (09:15→20:12)
[2022-03-02] MEDS: THIAMINE 100 MG TAB PO SCH (09:15)
[2022-03-02] MEDS: ASPIRIN 81 MG PO SCH (09:15)
[2022-03-02] MEDS: FAMOTIDINE 20 MG TAB PO SCH (09:15)
[2022-03-02] MEDS: HEPARIN SODIUM,PORCINE/PF 5,000 UNIT/0.5 ML SYRINGE SQ SCH ×3 (09:16→23:19)
[2022-03-02] MEDS ORDERED: RX INFO: IV CONTRAST WAS GIVEN 1 EACH MISC MISCELLANE PRN (09:18)
[2022-03-02] MEDS: TAMSULOSIN 0.4 MG CAP.ER.24H PO SCH (09:18)
--- NOTE | 2022-03-02 09:20 | P.PN ---
Subjective Progress Note Date: 03/02/22 61-year-old male who presents to the emergency room on February 21, via EMS, for possible seizure. The patient has a history of chronic alcohol abuse, and chronic foot wounds. He apparently does have a history of seizure disorder, and is apparently noncompliant with his seizure medications. He apparently presented to the emergency department with acute onset of seizure, earlier on the day of admission, which was February 21. He apparently had 3 different seizure episodes within one hour. When EMS arrived, he apparently was actively seizing. They administered 5 mg of IV Versed, and the seizure stopped. The patient was apparently postictal after that. Since being in the emergency department, the patient has been improving neurologically. He was on BiPAP for a short period of time with settings of 15/5 and 60%, up until about 3:00 in the morning. Now he is on between 6-7 L of nasal oxygen. He is getting saline at keep vein open. Current vital signs include sinus tachycardia with a rate of 138, blood pressure 116/85 respiratory rate 22 and saturations 90-92%. White count 26.4, hemoglobin 13.5, hematocrit 43.6, and platelet count was normal. Most recent blood gases show pO2 71, pCO2 47, and a pH is 7.26. That was on BiPAP at 60%. Troponin was 0.030. Initial pH was 7.12. Sodium 124, potassium 4.9, chlorides 96, CO2 19, BUN 6, creatinine 0.66. Urine screen was positive f or benzodiazepines, and marijuana. Chest x-ray shows patchy airspace disease in the left hilar region, consistent with possible aspiration pneumonia. The patient is seen today 02/23/2022 in follow-up on the selective care unit. He is currently resting fairly comfortably in bed. Somewhat lethargic. He is on BiPAP 15/5 and 60% FiO2 with O2 saturations in the 90s. EEG revealed possible low amplitude sharp appearing waves in the right frontotemporal region. This may suggest underlying cortical irritability intensive for seizures. No seizures were recorded. Blood cultures positive for coag-negative staph. Urine culture negative. White count 21.1. Hemoglobin 12.4. Platelets 331. Sodium 138. Potassium 4.8. BUN 7. Creatinine 0.52. AST 39. ALT 18. He is continued on bronchodilators and Zosyn. Heparin for DVT prophylaxis. Remains in the CIWA protocol. Remains on Keppra. The patient seen today 02/24/2022 in follow-up on the selective care unit. He is currently sitting up in bed. More awake and arousable. Currently on 5 L high flow nasal cannula. He has been alternating with BiPAP 15/5 and 60% FiO2. He has normal saline at 50 MLS per hour. Maintained on Zosyn. Bronchodilators. Heparin for DVT prophylaxis. No seizure activity. Remains in CIWA protocol. Last Ativan requirement at 4 AM this morning. The cultures positive for coag- negative staph. White count 15.4. Hemoglobin 11.1. Platelets 325. Sodium 139. Potassium 3.8. BUN 9. Creatinine 0.75. The patient is seen today 02/25/2022 in follow-up on the selective care unit. He is more awake and alert today. Denies any worsening shortness of breath, cough or congestion. Currently maintaining O2 saturations in the 90s on 5 L/m per nasal cannula. He had initially been on BiPAP 5 over 5 and 60% FiO2. Chest x-ray revealed worsening scattered airspace opacities with a new right lower lobe collapse. MRI of the brain revealed right hippocampus and fungus restricted diffusion favoring sequela patient seizure. Generalized atrophy changes and mild nonspecific white matter changes secondary to small vessel ischemic disease. Moderate paranasal sinus disease. Carotid Dopplers revealed less than 50% stenosis bilaterally. Blood cultures revealed coag-negative staph. White count 11.8. Hemoglobin 11.2. Sodium 143. Potassium 3.9. BUN 12. Creatinine 0.57. He remains on DuoNeb inhalations. Antibiotics in the form of Zosyn. Heparin for DVT prophylaxis. Remains on Keppra. Normal saline at 100 ML's per hour. No seizure activity. The patient is seen today 02/26/2022 in follow-up on the selective care unit. He is currently resting comfortably in bed. Awake and alert in no acute distress. He is maintaining O2 saturations in the 90s on 5 L/m per nasal cannula. D545 at 75 ML's per hour. He is continued on bronchodilators. Continue on heparin for DVT prophylaxis. Remains on antibiotics in the form of Zosyn. Follow-up blood cultures revealing no growth. Urine culture revealed no growth. No seizure activity. The patient is seen today 02/27/2022 in follow-up on the selective care unit. He is sitting up in bed. Awake and alert in no acute distress. Currently on Bi PAP 15/5 on 40% FiO2 alternating with 5 L high flow nasal cannula. Receiving D5 W at 50 MLS per hour Follow-up blood cultures revealed no growth. Sodium 143. Potassium 4.8. Chloride 116. BUN 13. Creatinine 0.51. Glucose 103. The plan is for a barium swallow today. She remains on bronchodilators, Zosyn, heparin for DVT prophylaxis. Continue to CIWA protocol. No seizures noted. The patient is seen today 02/28/2022 in follow-up on the selective care unit. He is sitting up in bed. Awake and alert in no acute distress. Currently maintaining O2 saturations in the 90s on 2 L/m per nasal cannula. His main complaint is that of fatigue. No worsening shortness of breath, cough or conge stion. No seizure activity. He's been afebrile. Hemodynamically stable. Chest x-ray reveals moderate central vascular congestion with small to moderate right pleural effusion and tiny left pleural effusion. He has D5W at 75 mL per hour. Follow-up blood culture reveals no growth. Urine culture revealed no growth. ProBNP 18,500. Has only been in a -135 mL balance. Currently on bronchodilators. Antibiotics in the form of Zosyn. Heparin for DVT prophylaxis. On 03/01/2022, the patient is being seen for a follow-up. Remains on O2 at 2 L and has a BiPAP at the bedside. Breath sounds are quite diminished bilaterally and the patient is a chronic smoker. No chest pain. He has a congested cough. No aspiration. The patient is on Lasix and the patient was switched to oral Lasix 20 mg by mouth daily. He has a incentive spirometer. He also has a flutter valve. IV fluids are in the form of normal saline at rate of 50 mL an hour. He has a chronic smoker. He is using DuoNeb nebulized treatments and this will be switched to [id number] every 4 hours. He is on heparin subcu for DVT prophylaxis. No other significant events otherwise for now. No seizure activity. He has chronic alcoholism in his been a chronic smoker. 03/02/2022, the patient remains on 2 L of oxygen by nasal cannula. Not utilizing the BiPAP. He has a flutter valve at the bedside and the patient and incentive spirometer. He remains on bronchodilators with DuoNeb about treatments [id number]. He had an echo of the heart yesterday and the patient was found to have a ejection fraction of 30% and LV's impaired. There is also evidence of apical septal and lateral inferior wall hypokinesis. RVSP 30. Mild aortic regurgitation and mitral regurgitation is also present. No evidence of any pericardial effusion. The follow-up chest x-ray that was done today shows cardiomegaly, effusions the lung bases and persistent right lower lobe opacification. The right mid and right lower lobe opacity is unchanged. The patient remains on IV Zosyn. Objective - Vital Signs Vital signs: Vital Signs Temp 97.7 F 03/02/22 08:55 Pulse 102 H 03/02/22 09:09 Resp 18 03/02/22 08:55 BP 114/73 03/02/22 08:55 Pulse Ox 96 03/02/22 09:09 FiO2 40 02/27/22 15:56 Intake & Output 03/01/22 03/02/22 03/02/22 18:59 06:59 18:59 Output Total 600 300 Balance -600 -300 Output: Urine 600 300 Other: Voiding Method Indwelling Catheter Indwelling Catheter Indwelling Catheter - Exam GENERAL EXAM: Awake, alert, 61-year-old male, sitting up in bed, on 2 L nasal cannula, comfortable in no apparent distress. HEAD: Normocephalic. EYES: Normal reaction of pupils, equal size. NOSE: Clear with pink turbinates. THROAT: No erythema or exudates. NECK: No masses, no JVD. CHEST: No chest wall deformity. LUNGS: Equal air entry with bilateral scattered rhonchi and crackles in the bases right greater than left. CVS: S1 and S2 normal with no audible murmur, regular rhythm. ABDOMEN: No hepatosplenomegaly, normal bowel sounds, no guarding or rigidity. SPINE: No scoliosis or deformity SKIN: No rashes CENTRAL NERVOUS SYSTEM: Alert, tone is normal in all 4 extremities. EXTREMITIES: Scaly patches on the bottom of the feet. There is no peripheral edema. No clubbing, no cyanosis. Peripheral pulses are intact. - Labs CBC & Chem 7: 03/02/22 06:55 03/02/22 06:55 Labs: Abnormal Lab Results - Last 24 Hours (Table) 03/01/22 03/01/22 03/02/22 Range/Units 10:32 10:32 06:55 WBC 14.7 H 11.9 H (3.8-10.6) k/uL RBC 3.56 L 3.42 L (4.30-5.90) m/uL Hgb 10.7 L 9.8 L (13.0-17.5) gm/dL Hct 33.2 L 32.4 L (39.0-53.0) % MCHC 30.3 L (31.0-37.0) g/dL Neutrophils # 12.9 H 9.6 H (1.3-7.7) k/uL Lymphocytes # 0.7 L (1.0-4.8) k/uL Sodium 136 L (137-145) mmol/L Potassium 2.8 L (3.5-5.1) mmol/L BUN 7 L (9-20) mg/dL Creatinine 0.55 L (0.66-1.25) mg/dL Glucose 124 H (74-99) mg/dL Calcium 7.5 L (8.4-10.2) mg/dL 03/02/22 Range/Units 06:55 WBC (3.8-10.6) k/uL RBC (4.30-5.90) m/uL Hgb (13.0-17.5) gm/dL Hct (39.0-53.0) % MCHC (31.0-37.0) g/dL Neutrophils # (1.3-7.7) k/uL Lymphocytes # (1.0-4.8) k/uL Sodium 135 L (137-145) mmol/L Potassium 3.3 L (3.5-5.1) mmol/L BUN 6 L (9-20) mg/dL Creatinine 0.48 L (0.66-1.25) mg/dL Glucose (74-99) mg/dL Calcium 7.5 L (8.4-10.2) mg/dL Microbiology - Last 24 Hours (Table) 02/25/22 07:03 Blood Culture - Preliminary Blood No Growth after 96 hours Assessment and Plan Plan: Acute hypoxemic respiratory failure secondary to suspected aspiration pneumonia, with increasing right lower lobe collapse. Barium swallow from 02/27/2022 revealed no penetration or aspiration identified, currently on 2 L of oxygen by nasal cannula, chest x-ray still showing evidence of pulmonary edema with possible bilateral pleural effusion and increased infiltration of the right more than left. The patient is currently on 2 L of oxygen by nasal cannula utilizing BiPAP overnight. The patient completed a course of IV Zosyn On today's evaluation, no major change in his overall condition systolic congestive heart failure with previous echocardiogram revealing ejection fraction of 30 %, proBNP greater than 18,000, received diuretics during his course in the intensive care unit Recurrent seizure activity, and the patient noncompliant with epilepsy medications. MRI of the brain revealed right hippocampus and uncus restricted diffusion favoring sequela of patient's seizures. History of chronic tobacco use and nicotine dependence. History of hypertension. History of chronic alcohol abuse. History of marijuana use. Chronic wounds, lower extremities. Plan: Barium swallow revealed no aspiration Obtain a CAT scan of the chest with contrast to further characterize the right lung capacity. The repeat chest x-ray from today shows essentially no interval change Overall respiratory status is stable currently on 2 L of O2 nasal cannula Repeat echocardiogram showed an ejection fraction of 30% Chest x-ray from today is unchanged Continue bronchodilators Continue flutter valve, CPT to right chest We'll continue to follow Further recommendations are to follow based on the results of the CAT scan of the chest
--- NOTE | 2022-03-02 10:24 | CT ---
EXAMINATION TYPE: CT chest w con CT DLP: 364.9 mGycm, Automated exposure control for dose reduction was used. DATE OF EXAM: 03/02/2022 10:11 AM COMPARISON: . Chest radiograph from same day. CLINICAL INDICATION:Male, 61 years old with history of shortness of breath; PHH, sob TECHNIQUE: Multiple axial images were obtained through the chest following the administration of 100 cc of Isovue 300. Coronal and sagittal reformats reviewed. FINDINGS: LUNGS/ PLEURA: Moderate bilateral pleural effusions with complete atelectasis of the right lower lobe and partial atelectasis of the right middle and left lower lobes. Multifocal patchy groundglass opac ities within the bilateral upper lobes with additional consolidation within the right upper lobe. AIRWAY: Secretions are demonstrated within the trachea extending into the bronchus intermedius. HEART: Mild cardiomegaly. No pericardial effusion. Coronary arterial calcifications. MEDIASTINUM: No gross evidence of adenopathy. VASCULATURE: No aortic aneurysm. The visualized pulmonary vasculature appears widely patent. MUSCULOSKELETAL: No acute osseous abnormalities. Multilevel Schmorl's nodes. SOFT TISSUES/LYMPH NODES: Unremarkable. LOWER NECK: No significant findings. UPPER ABDOMEN: This is demonstrated within the visualized colon from prior swallow study. IMPRESSION: 1. Multifocal patchy ground glass opacities within the upper lobes with additional consolidation with in the right upper lobe. Findings are concerning for multifocal atypical pneumonia. 2. Moderate bilateral pleural effusions with complete atelectasis of the right lower lobe and partial atelectasis of the right middle and left lower lobes. Superimposed CHF exacerbation is not excluded. 3. Secretions in the trachea extending into the bronchus intermedius. Raises concern for aspiration.
--- NOTE | 2022-03-02 11:05 | P.PN ---
Subjective Progress Note Date: 03/02/22 The patient is seen at bedside and feels about the same. It seems patient was suppose to go for Lumbar puncture but per nurse no one notified her and he received subq heparin so is postponed till tomorrow. Objective - Vital Signs Vital signs: Vital Signs Temp 97.7 F 03/02/22 08:55 Pulse 104 H 03/02/22 09:20 Resp 18 03/02/22 08:55 BP 114/73 03/02/22 08:55 Pulse Ox 96 03/02/22 09:09 FiO2 40 02/27/22 15:56 Intake & Output 03/01/22 03/02/22 03/02/22 18:59 06:59 18:59 Output Total 600 300 200 Balance -600 -300 -200 Output: Urine 600 300 200 Other: Voiding Method Indwelling Catheter Indwelling Catheter Indwelling Catheter - Exam GENERAL: The patient is lying in bed and is not in acute distress. LUNG: On BiPAP. NEUROLOGICAL: Higher mental function: The patient is awake, alert, oriented to self, place and time. Patient is following commands. No aphasia and no neglect. Cranial nerves: The pupils are round, equal and reactive to light. Visual wang are full to confrontation throughout. Extraocular movement is intact no nystagmus is noted. Facial sensation is normal to touch throughout. The facial strength is normal throughout. No dysarthria is noted. Motor: The strength is 5 over 5 throughout. Normal tone and bulk. Cerebellum: Normal finger to nose bilaterally. Sensation: Sensation is normal to touch throughout. - Labs CBC & Chem 7: 03/02/22 06:55 03/02/22 06:55 Labs: Abnormal Lab Results - Last 24 Hours (Table) 03/02/22 03/02/22 Range/Units 06:55 06:55 WBC 11.9 H (3.8-10.6) k/uL RBC 3.42 L (4.30-5.90) m/uL Hgb 9.8 L (13.0-17.5) gm/dL Hct 32.4 L (39.0-53.0) % MCHC 30.3 L (31.0-37.0) g/dL Neutrophils # 9.6 H (1.3-7.7) k/uL Sodium 135 L (137-145) mmol/L Potassium 3.3 L (3.5-5.1) mmol/L BUN 6 L (9-20) mg/dL Creatinine 0.48 L (0.66-1.25) mg/dL Calcium 7.5 L (8.4-10.2) mg/dL Microbiology - Last 24 Hours (Table) 02/25/22 07:03 Blood Culture - Preliminary Blood No Growth after 120 hours Assessment and Plan Assessment: * Seizure disorder, came with recurrent seizures (3). Seizures aborted with Versed 5 mg IV push---clinically stable. Seems possibly due to alcohol withd ellyn (Presented with alcohol <10 to our facility) * Abnormal brain MRI, with abnormal signal with restricted diffusion in the right hippocampus and uncus. Probably favors sequela of patient's seizure. * Heavy alcohol use. He stated he drinks at least 4 beers daily or more. Patient also takes Klonopin regularly, denies running out of it. * Dysphagia, unclear cause. Patient failed swallow. * Pneumonia * Bacteremia with staph coagulase-negative, felt to be contaminant-per ID. * Feet ulcers * Tobacco use * Marijuana use * Coronary artery disease Plan: * EEG was abnormal due to presence of low amplitude sharp-appearing waves in the right frontotemporal region. This may suggest underlying cortical irritability and tendency for seizures. No electrographic seizure was re corded. * MRI of the brain without contrast revealed right hippocampus and uncus restricted diffusion is favored to represent sequela of patient's seizure. Other differential includes mesial temporal sclerosis, however it is felt to be less likely given no significant atrophic changes. Other etiologies include limbic encephalitis. Short-term follow-up MRI is recommended. I personally reviewed MRI, agree with the findings. * 2-D echo from 03/24/2021 revealed normal left ventricular size, moderate concentric LVH. EF is mild to moderately impaired 40-45%. Normal left atrial size. Mild aortic valve sclerosis with trace to mild AR. * Carotid Doppler revealed less than 50% stenosis of bilateral carotid bifurcation. Antegrade flow right vertebral artery. Left vertebral unable to visualize. * Continue Keppra. Patient has received a loading dose of Keppra 2000 mg in the ER, and will be maintained on Keppra 1000 mg twice a day. Patient has failed swallow. Will switch back to IV form of Keppra. * Per speech therapist he was able to swallow and placed him on diet. MRI of the brain did reveal abnormal signal suspicious for seizure related versus CVA. * He was started on aspirin [address] Sharma as stroke prophylaxis since there is abnormal signal on DWI in the right hippocampus. In my opinion the abnormal signal is due to his seizure. But can resum ASA 81mg daily since carotids <50% stenosis. * Dr. Sharma consulted Pain specialist for Lumbar puncture, rule out encephalitis (less likely with improving mentation) and ordered NMDA antibodies. Likely LP will be done tomorrow. Please hold subq heparin for now. * For pneumonia, patient currently on Zosyn. ID following. * Continue Thiamine 100mg daily. * Per [place] DMV because of seizures, No driving for 6 months until seizure free, climbing ladders, operating dangerous machineries or swimming. * Recommended abstinence from alcoholism, marijuana and tobacco use. Plan is discussed with patient and his nurse. Time with Patient: Less than 30
[2022-03-02] MEDS: methylPREDNISolone SOD SUCCI 125 MG/2 ML VIAL IV SCH ×3 (13:31→23:19)
--- NOTE | 2022-03-02 15:14 | P.PN ---
Subjective Progress Note Date: 03/02/22 Principal diagnosis: Aspiration pneumonia Patient is a 61-year-old male with a past medical history significant for chronic on both abuse seizure disorder noncompliant with his seizure medication patient was brought into the ER with acute onset of seizure , patient did have elevated white count and evidence of multifocal infiltrating mostly in the left perihilar region concerning for possible aspiration pneumonia. On today's evaluation that is 03/02/2022, the patient continues to be afebrile, the patient is breathing comfortably on 2 L nasal cannula , the patient denies any chest pain , the patient cough has decreased in intensity mostly dry in nature no nausea no vomiting no abdominal pain or diarrhea Objective - Vital Signs Vital signs: Vital Signs Temp 97.7 F 03/02/22 08:55 Pulse 104 H 03/02/22 09:20 Resp 18 03/02/22 08:55 BP 114/73 03/02/22 08:55 Pulse Ox 96 03/02/22 09:09 FiO2 40 02/27/22 15:56 Intake & Output 03/01/22 03/02/22 03/02/22 18:59 06:59 18:59 Output Total 600 300 200 Balance -600 -300 -200 Weight 58.967 kg Output: Urine 600 300 200 Other: Voiding Method Indwelling Catheter Indwelling Catheter Indwelling Catheter - Exam GENERAL DESCRIPTION: Middle-aged male lying in bed in no distress RESPIRATORY SYSTEM: Unlabored breathing , decreased breath sounds at bases HEART: S1 S2 regular rate and rhythm , ABDOMEN: Soft , no tenderness EXTREMITIES: No edema feet - Labs CBC & Chem 7: 03/02/22 06:55 03/02/22 06:55 Labs: Abnormal Lab Results - Last 24 Hours (Table) 03/02/22 03/02/22 Range/Units 06:55 06:55 WBC 11.9 H (3.8-10.6) k/uL RBC 3.42 L (4.30-5.90) m/uL Hgb 9.8 L (13.0-17.5) gm/dL Hct 32.4 L (39.0-53.0) % MCHC 30.3 L (31.0-37.0) g/dL Neutrophils # 9.6 H (1.3-7.7) k/uL Sodium 135 L (137-145) mmol/L Potassium 3.3 L (3.5-5.1) mmol/L BUN 6 L (9-20) mg/dL Creatinine 0.48 L (0.66-1.25) mg/dL Calcium 7.5 L (8.4-10.2) mg/dL Microbiology - Last 24 Hours (Table) 02/25/22 07:03 Blood Culture - Preliminary Blood No Growth after 120 hours Assessment and Plan (1) Pneumonia Current Visit: Yes Status: Acute Code(s): J18.9 - PNEUMONIA, UNSPECIFIED ORGANISM SNOMED Code(s): 342285373 Plan: 1patient presented to hospital with active seizures in this patient now with evidence of multifocal pneumonia mostly left perihilar region did have elevated vital concerning for pneumonia of aspiration etiology. 2positive blood culture finalized as staph epi likely skin contamination blood cultures repeated 02/25/2022 so far negative. 3patient did have a clinical improvement and patient white count is down to 11,000, patient to continue with the Zosyn along with aspiration precaution and plan is to finish therapy with oral antibiotics on discharge Time with Patient: Less than 30
[2022-03-02 16:59] LABS: Glucose,Whole Blood 169 mg/dL (70-110)
[2022-03-02 20:15] LABS: Glucose,Whole Blood 249 mg/dL (70-110)
[2022-03-02] MEDS ORDERED: IPRATROPIUM-ALBUTEROL 3 ML NEB INHALATION PRN (20:29)
[2022-03-03] MEDS: methylPREDNISolone SOD SUCCI 125 MG/2 ML VIAL IV SCH ×4 (06:05→23:02)
[2022-03-03 06:08] LABS: Glucose,Whole Blood 137 mg/dL (70-110)
[2022-03-03] MEDS: HEPARIN SODIUM,PORCINE/PF 5,000 UNIT/0.5 ML SYRINGE SQ SCH ×3 (08:30→23:02)
[2022-03-03 08:36] LABS: African American GFR (CKD) >90 (>60 ml/min/1.73 sqM); Anion Gap 3 mmol/L; Basophils % (A) 0 %; Blood Urea Nitrogen 10 mg/dL (9-20); Calcium 7.9 mg/dL (8.4-10.2); Carbon Dioxide 31 mmol/L (22-30); Chloride 101 mmol/L (98-107); Eosinophils % (A) 0 %; Glucose 130 mg/dL (74-99); HCT 36.6 % (39.0-53.0); HGB 11.6 gm/dL (13.0-17.5); Hypochromasia Marked; Lymphocytes # (A) 0.6 k/uL (1.0-4.8); Lymphocytes % (A) 6 %; MCH 30.5 pg (25.0-35.0); MCHC 31.7 g/dL (31.0-37.0); MCV 96.1 fL (80.0-100.0); Magnesium 1.8 mg/dL (1.6-2.3); Mean Platelet Volume 9.3; Monocytes # (A) 0.3 k/uL (0-1.0); Monocytes % (A) 3 %; Neutrophils # (A) 9.4 k/uL (1.3-7.7); Neutrophils % (A) 90 %; Non-African American GFR(CKD) >90 (>60 ml/min/1.73 sqM); Platelet Count 357 k/uL (150-450); Potassium 3.9 mmol/L (3.5-5.1); RBC 3.81 m/uL (4.30-5.90); RDW 14.2 % (11.5-15.5); Sodium 135 mmol/L (137-145); WBC 10.3 k/uL (3.8-10.6)
[2022-03-03] MEDS: PIPERACILLIN-TAZOBACTAM 3.375 GM in SODIUM CHLORIDE 0.9% 100 ML IVPB SCH ×3 (08:42→23:02)
[2022-03-03] MEDS: METOPROLOL TARTRATE 50 MG TAB PO SCH ×2 (08:43→20:05)
[2022-03-03] MEDS: FAMOTIDINE 20 MG TAB PO SCH (08:43)
[2022-03-03] MEDS: ASPIRIN 81 MG PO SCH (08:43)
[2022-03-03] MEDS: levETIRAcetam 500 MG TAB PO SCH ×2 (08:43→20:05)
[2022-03-03] MEDS: TAMSULOSIN 0.4 MG CAP.ER.24H PO SCH (08:43)
[2022-03-03] MEDS: THIAMINE 100 MG TAB PO SCH (08:43)
[2022-03-03] MEDS: IPRATROPIUM-ALBUTEROL 3 ML NEB INHALATION SCH ×4 (08:48→20:42)
[2022-03-03] MEDS ORDERED: NYSTATIN 100,000 UNIT/ML SUSP 500,000 UNIT/5 ML CUP PO SCH (09:00)
--- NOTE | 2022-03-03 09:01 | P.PN ---
Subjective Progress Note Date: 03/03/22 61-year-old male who presents to the emergency room on February 21, via EMS, for possible seizure. The patient has a history of chronic alcohol abuse, and chronic foot wounds. He apparently does have a history of seizure disorder, and is apparently noncompliant with his seizure medications. He apparently presented to the emergency department with acute onset of seizure, earlier on the day of admission, which was February 21. He apparently had 3 different seizure episodes within one hour. When EMS arrived, he apparently was actively seizing. They administered 5 mg of IV Versed, and the seizure stopped. The patient was apparently postictal after that. Since being in the emergency department, the patient has been improving neurologically. He was on BiPAP for a short period of time with settings of 15/5 and 60%, up until about 3:00 in the morning. Now he is on between 6-7 L of nasal oxygen. He is getting saline at keep vein open. Current vital signs include sinus tachycardia with a rate of 138, blood pressure 116/85 respiratory rate 22 and saturations 90-92%. White count 26.4, hemoglobin 13.5, hematocrit 43.6, and platelet count was normal. Most recent blood gases show pO2 71, pCO2 47, and a pH is 7.26. That was on BiPAP at 60%. Troponin was 0.030. Initial pH was 7.12. Sodium 124, potassium 4.9, chlorides 96, CO2 19, BUN 6, creatinine 0.66. Urine screen was positive f or benzodiazepines, and marijuana. Chest x-ray shows patchy airspace disease in the left hilar region, consistent with possible aspiration pneumonia. The patient is seen today 02/23/2022 in follow-up on the selective care unit. He is currently resting fairly comfortably in bed. Somewhat lethargic. He is on BiPAP 15/5 and 60% FiO2 with O2 saturations in the 90s. EEG revealed possible low amplitude sharp appearing waves in the right frontotemporal region. This may suggest underlying cortical irritability intensive for seizures. No seizures were recorded. Blood cultures positive for coag-negative staph. Urine culture negative. White count 21.1. Hemoglobin 12.4. Platelets 331. Sodium 138. Potassium 4.8. BUN 7. Creatinine 0.52. AST 39. ALT 18. He is continued on bronchodilators and Zosyn. Heparin for DVT prophylaxis. Remains in the CIWA protocol. Remains on Keppra. The patient seen today 02/24/2022 in follow-up on the selective care unit. He is currently sitting up in bed. More awake and arousable. Currently on 5 L high flow nasal cannula. He has been alternating with BiPAP 15/5 and 60% FiO2. He has normal saline at 50 MLS per hour. Maintained on Zosyn. Bronchodilators. Heparin for DVT prophylaxis. No seizure activity. Remains in CIWA protocol. Last Ativan requirement at 4 AM this morning. The cultures positive for coag- negative staph. White count 15.4. Hemoglobin 11.1. Platelets 325. Sodium 139. Potassium 3.8. BUN 9. Creatinine 0.75. The patient is seen today 02/25/2022 in follow-up on the selective care unit. He is more awake and alert today. Denies any worsening shortness of breath, cough or congestion. Currently maintaining O2 saturations in the 90s on 5 L/m per nasal cannula. He had initially been on BiPAP 5 over 5 and 60% FiO2. Chest x-ray revealed worsening scattered airspace opacities with a new right lower lobe collapse. MRI of the brain revealed right hippocampus and fungus restricted diffusion favoring sequela patient seizure. Generalized atrophy changes and mild nonspecific white matter changes secondary to small vessel ischemic disease. Moderate paranasal sinus disease. Carotid Dopplers revealed less than 50% stenosis bilaterally. Blood cultures revealed coag-negative staph. White count 11.8. Hemoglobin 11.2. Sodium 143. Potassium 3.9. BUN 12. Creatinine 0.57. He remains on DuoNeb inhalations. Antibiotics in the form of Zosyn. Heparin for DVT prophylaxis. Remains on Keppra. Normal saline at 100 ML's per hour. No seizure activity. The patient is seen today 02/26/2022 in follow-up on the selective care unit. He is currently resting comfortably in bed. Awake and alert in no acute distress. He is maintaining O2 saturations in the 90s on 5 L/m per nasal cannula. D545 at 75 ML's per hour. He is continued on bronchodilators. Continue on heparin for DVT prophylaxis. Remains on antibiotics in the form of Zosyn. Follow-up blood cultures revealing no growth. Urine culture revealed no growth. No seizure activity. The patient is seen today 02/27/2022 in follow-up on the selective care unit. He is sitting up in bed. Awake and alert in no acute distress. Currently on Bi PAP 15/5 on 40% FiO2 alternating with 5 L high flow nasal cannula. Receiving D5 W at 50 MLS per hour Follow-up blood cultures revealed no growth. Sodium 143. Potassium 4.8. Chloride 116. BUN 13. Creatinine 0.51. Glucose 103. The plan is for a barium swallow today. She remains on bronchodilators, Zosyn, heparin for DVT prophylaxis. Continue to CIWA protocol. No seizures noted. The patient is seen today 02/28/2022 in follow-up on the selective care unit. He is sitting up in bed. Awake and alert in no acute distress. Currently maintaining O2 saturations in the 90s on 2 L/m per nasal cannula. His main complaint is that of fatigue. No worsening shortness of breath, cough or conge stion. No seizure activity. He's been afebrile. Hemodynamically stable. Chest x-ray reveals moderate central vascular congestion with small to moderate right pleural effusion and tiny left pleural effusion. He has D5W at 75 mL per hour. Follow-up blood culture reveals no growth. Urine culture revealed no growth. ProBNP 18,500. Has only been in a -135 mL balance. Currently on bronchodilators. Antibiotics in the form of Zosyn. Heparin for DVT prophylaxis. On 03/01/2022, the patient is being seen for a follow-up. Remains on O2 at 2 L and has a BiPAP at the bedside. Breath sounds are quite diminished bilaterally and the patient is a chronic smoker. No chest pain. He has a congested cough. No aspiration. The patient is on Lasix and the patient was switched to oral Lasix 20 mg by mouth daily. He has a incentive spirometer. He also has a flutter valve. IV fluids are in the form of normal saline at rate of 50 mL an hour. He has a chronic smoker. He is using DuoNeb nebulized treatments and this will be switched to [id number] every 4 hours. He is on heparin subcu for DVT prophylaxis. No other significant events otherwise for now. No seizure activity. He has chronic alcoholism in his been a chronic smoker. 03/02/2022, the patient remains on 2 L of oxygen by nasal cannula. Not utilizing the BiPAP. He has a flutter valve at the bedside and the patient and incentive spirometer. He remains on bronchodilators with DuoNeb about treatments [id number]. He had an echo of the heart yesterday and the patient was found to have a ejection fraction of 30% and LV's impaired. There is also evidence of apical septal and lateral inferior wall hypokinesis. RVSP 30. Mild aortic regurgitation and mitral regurgitation is also present. No evidence of any pericardial effusion. The follow-up chest x-ray that was done today shows cardiomegaly, effusions the lung bases and persistent right lower lobe opacification. The right mid and right lower lobe opacity is unchanged. The patient remains on IV Zosyn. 03/03/2022, the patient remains on 2 L of oxygen by nasal cannula. As mentioned, he has advanced COPD and cardiomyopathy also. There was a concern of his ongoing opacity in the right middle lobe/right lower lobe which has remained unchanged based on follow-up chest x-rays. Based on that, a CAT scan of the chest was ordered yesterday. Based on the CAT scan findings, the patient has moderate sized bilateral pleural effusion with compressive atelectasis of the right lung base. There is also areas of patchy infiltrates in the upper lobes. These areas of groundglass opacities in the upper lobes. However, predominant abnormality remains the bilateral pleural effusion which is moderate in size. At the same time, is complaining of difficulties in swallowing. He has developed some oropharyngeal candidiasis that'll be treated accordingly. The risk was a 10.3 with a hemoglobin of 11.6 and the BUN is at panel with a creatinine of 0.7. He remains on bronchodilators. Remains on steroids and is going to be tapered to prednisone burst taper. Obviously, the patient will need thoracentesis to give him symptomatic relief. Objective - Vital Signs Vital signs: Vital Signs Temp 98.3 F 03/03/22 03:14 Pulse 79 03/03/22 03:14 Resp 17 03/03/22 03:14 BP 128/87 03/03/22 03:14 Pulse Ox 97 03/03/22 08:48 FiO2 40 02/27/22 15:56 Intake & Output 03/02/22 03/03/22 03/03/22 18:59 06:59 18:59 Output Total 300 Balance -300 Weight 58.967 kg Output: Urine 300 Other: Voiding Method Indwelling Catheter Indwelling Catheter # Voids 0 # Bowel Movements 3 - Exam GENERAL EXAM: Awake, alert, 61-year-old male, sitting up in bed, on 2 L nasal cannula, comfortable in no apparent distress. HEAD: Normocephalic. EYES: Normal reaction of pupils, equal size. NOSE: Clear with pink turbinates. THROAT: No erythema or exudates. NECK: No masses, no JVD. CHEST: No chest wall deformity. LUNGS: Equal air entry with bilateral scattered rhonchi and crackles in the bases right greater than left. CVS: S1 and S2 normal with no audible murmur, regular rhythm. ABDOMEN: No hepatosplenomegaly, normal bowel sounds, no guarding or rigidity. SPINE: No scoliosis or deformity SKIN: No rashes CENTRAL NERVOUS SYSTEM: Alert, tone is normal in all 4 extremities. EXTREMITIES: Scaly patches on the bottom of the feet. There is no peripheral edema. No clubbing, no cyanosis. Peripheral pulses are intact. - Labs CBC & Chem 7: 03/03/22 06:49 03/03/22 06:49 Labs: Abnormal Lab Results - Last 24 Hours (Table) 03/02/22 03/02/22 03/03/22 Range/Units 16:58 20:13 06:06 RBC (4.30-5.90) m/uL Hgb (13.0-17.5) gm/dL Hct (39.0-53.0) % Neutrophils # (1.3-7.7) k/uL Lymphocytes # (1.0-4.8) k/uL Sodium (137-145) mmol/L Carbon Dioxide (22-30) mmol/L Glucose (74-99) mg/dL POC Glucose (mg/dL) 169 H 249 H 137 H (70-110) mg/dL Calcium (8.4-10.2) mg/dL 03/03/22 03/03/22 Range/Units 06:49 06:49 RBC 3.81 L (4.30-5.90) m/uL Hgb 11.6 L (13.0-17.5) gm/dL Hct 36.6 L (39.0-53.0) % Neutrophils # 9.4 H (1.3-7.7) k/uL Lymphocytes # 0.6 L (1.0-4.8) k/uL Sodium 135 L (137-145) mmol/L Carbon Dioxide 31 H (22-30) mmol/L Glucose 130 H (74-99) mg/dL POC Glucose (mg/dL) (70-110) mg/dL Calcium 7.9 L (8.4-10.2) mg/dL Microbiology - Last 24 Hours (Table) 02/25/22 07:03 Blood Culture - Preliminary Blood No Growth after 120 hours Assessment and Plan Plan: Acute hypoxemic respiratory failure secondary to suspected aspiration pneumonia, with increasing right lower lobe collapse. Barium swallow from 02/27/2022 revealed no penetration or aspiration identified, currently on 2 L of oxygen by nasal cannula, chest x-ray still showing evidence of pulmonary edema with possible bilateral pleural effusion and increased infiltration of the right more than left. The patient is currently on 2 L of oxygen by nasal cannula utilizing BiPAP overnight. The patient completed a course of IV Zosyn On today's evaluation, no major change in his overall condition. The patient has bilateral pleural effusion moderate in size more so on the right and passive atelectasis of the lung base in addition to some areas of patchy groundglass pulmonary infiltrates. This is based on the CAT scan of the chest that was done yesterday. Suspect transudative effusion secondary to CHF. systolic congestive heart failure with previous echocardiogram revealing ejection fraction of 30 %, proBNP greater than 18,000, received diuretics during his course in the intensive care unit Recurrent seizure activity, and the patient noncompliant with epilepsy medications. MRI of the brain revealed right hippocampus and uncus restricted diffusion favoring sequela of patient's seizures. History of chronic tobacco use and nicotine dependence. History of hypertension. History of chronic alcohol abuse. History of marijuana use. Chronic wounds, lower extremities. Oropharyngeal candidiasis Plan: Recommend thoracentesis, likely bilateral, if agreeable, we'll proceed with a right-sided thoracentesis Add Diflucan 100 mg by mouth daily for oropharyngeal candidiasis Stop IV Solu-Medrol and start the patient a prednisone burst taper Overall respiratory status is stable currently on 2 L of O2 nasal cannula Repeat echocardiogram showed an ejection fraction of 30% Chest x-ray from today is unchanged Continue bronchodilators Continue flutter valve, CPT to right chest We'll continue to follow
[2022-03-03] MEDS: LORazepam 2 MG/ML INJ IV PRN (10:23)
--- NOTE | 2022-03-03 11:01 | P.PN ---
Progress Note - Text Progress Note Date: 03/03/22 The patient declined thoracentesis. I think there is a component of the delirium going on. The patient was given Ativan. Based on that, I canceled the thoracentesis and I started the patient on Lasix 40 mg IV every 12 hours.
[2022-03-03 11:31] LABS: Glucose,Whole Blood 148 mg/dL (70-110)
[2022-03-03] MEDS: FUROSEMIDE 10 MG/ML 4 ML VIAL IV SCH ×2 (12:33→20:05)
[2022-03-03] MEDS: FLUCONAZOLE 100 MG TAB PO SCH (12:34)
--- NOTE | 2022-03-03 16:20 | P.PN ---
Subjective Progress Note Date: 03/03/22 The patient is seen at bedside and refusing Lumbar puncture or thoracentesis and will like to have some rest and will consider it tomorrow. No further seizure. Objective - Vital Signs Vital signs: Vital Signs Temp 97.9 F 03/03/22 12:00 Pulse 99 03/03/22 14:00 Resp 16 03/03/22 14:00 BP 109/73 03/03/22 12:00 Pulse Ox 100 03/03/22 12:00 FiO2 40 02/27/22 15:56 Intake & Output 03/02/22 03/03/22 03/03/22 18:59 06:59 18:59 Output Total 300 Balance -300 Weight 58.967 kg Output: Urine 300 Other: Voiding Method Indwelling Catheter Indwelling Catheter Indwelling Catheter # Voids 0 # Bowel Movements 3 1 - Exam GENERAL: The patient is lying in bed and is not in acute distress. LUNG: On BiPAP. NEUROLOGICAL: Higher mental function: The patient is awake, alert, oriented to self, place and time. Patient is following commands. No aphasia and no neglect. Cranial nerves: The pupils are round, equal and reactive to light. Visual wang are full to confrontation throughout. Extraocular movement is intact no nystagmus is noted. Facial sensation is normal to touch throughout. The facial strength is normal throughout. No dysarthria is noted. Motor: The strength is 5 over 5 throughout. Normal tone and bulk. Cerebellum: Normal finger to nose bilaterally. Sensation: Sensation is normal to touch throughout. - Labs CBC & Chem 7: 03/03/22 06:49 03/03/22 06:49 Labs: Abnormal Lab Results - Last 24 Hours (Table) 03/02/22 03/02/22 03/03/22 Range/Units 16:58 20:13 06:06 RBC (4.30-5.90) m/uL Hgb (13.0-17.5) gm/dL Hct (39.0-53.0) % Neutrophils # (1.3-7.7) k/uL Lymphocytes # (1.0-4.8) k/uL Sodium (137-145) mmol/L Carbon Dioxide (22-30) mmol/L Glucose (74-99) mg/dL POC Glucose (mg/dL) 169 H 249 H 137 H (70-110) mg/dL Calcium (8.4-10.2) mg/dL 03/03/22 03/03/22 03/03/22 Range/Units 06:49 06:49 11:28 RBC 3.81 L (4.30-5.90) m/uL Hgb 11.6 L (13.0-17.5) gm/dL Hct 36.6 L (39.0-53.0) % Neutrophils # 9.4 H (1.3-7.7) k/uL Lymphocytes # 0.6 L (1.0-4.8) k/uL Sodium 135 L (137-145) mmol/L Carbon Dioxide 31 H (22-30) mmol/L Glucose 130 H (74-99) mg/dL POC Glucose (mg/dL) 148 H (70-110) mg/dL Calcium 7.9 L (8.4-10.2) mg/dL Microbiology - Last 24 Hours (Table) 02/25/22 07:03 Blood Culture - Final Blood No Growth after 144 hours Assessment and Plan Assessment: * Seizure disorder, came with recurrent seizures (3). Seizures aborted with Versed 5 mg IV push---clinically stable. Seems possibly due to alcohol withdrawal (Presented with alcohol <10 to our facility) * Abnormal brain MRI, with abnormal signal with restricted diffusion in the right hippocampus and uncus. Probably favors sequela of patient's seizure. * Heavy alcohol use. He stated he drinks at least 4 beers daily or more. Patient also takes Klonopin regularly, denies running out of it. * Dysphagia, unclear cause. Patient failed swallow. * Pneumonia * Bacteremia with staph coagulase-negative, felt to be contaminant-per ID. * Feet ulcers * Tobacco use * Marijuana use * Coronary artery disease Plan: * EEG was abnormal due to presence of low amplitude sharp-appearing waves in the right frontotemporal region. This may suggest underlying cortical irritability and tendency for seizures. No electrographic seizure was recorded. * MRI of the brain without contrast revealed right hippocampus and uncus restri cted diffusion is favored to represent sequela of patient's seizure. Other differential includes mesial temporal sclerosis, however it is felt to be less likely given no significant atrophic changes. Other etiologies include limbic encephalitis. Short-term follow-up MRI is recommended. I personally reviewed MRI, agree with the findings. * 2-D echo from 03/24/2021 revealed normal left ventricular size, moderate concentric LVH. EF is mild to moderately impaired 40-45%. Normal left atrial size. Mild aortic valve sclerosis with trace to mild AR. * Carotid Doppler revealed less than 50% stenosis of bilateral carotid bifurcation. Antegrade flow right vertebral artery. Left vertebral unable to visualize. * Continue Keppra. Patient has received a loading dose of Keppra 2000 mg in the ER, and will be maintained on Keppra 1000 mg twice a day. Patient has failed swallow. * Per speech therapist he was able to swallow and placed him on diet. MRI of the brain did reveal abnormal signal suspicious for seizure related versus CVA. * He was started on aspirin [address] Sharma as stroke prophylaxis since there is abnormal signal on DWI in the right hippocampus. In my opinion the abnormal signal is due to his seizure. But can resum ASA 81mg daily since carotids <50% stenosis. * Dr. Sharma consulted Pain specialist for Lumbar puncture, rule out encephalitis (less likely with improving mentation) and ordered NMDA antibodies. Pending LP to be performed. Please hold subq heparin for now. * For pneumonia, patient currently on Zosyn. ID following. * Continue Thiamine 100mg daily. * Per [place] DMV because of seizures, No driving for 6 months until seizure free, climbing ladders, operating dangerous machineries or swimming. * Recommended abstinence from alcoholism, marijuana and tobacco use. Plan is discussed with patient and his nurse. Please notify neurology team once Lumbar Puncture is performed. Time with Patient: Less than 30
[2022-03-03 16:28] LABS: Glucose,Whole Blood 114 mg/dL (70-110)
--- NOTE | 2022-03-03 17:47 | P.PN ---
Subjective Progress Note Date: 03/03/22 Principal diagnosis: Acute hypoxemic respiratory failure Aspiration pneumonia Recurrent seizure activity 61-year-old male with a known history of seizure disorder, currently with a smoker and current alcohol abuse and currently not on any antiepileptic drugs was brought to ER by ambulance due to seizures.. Patient was also having chronic foot wounds and is on follow-up with wound care center. Patient is also noncompliant with follow-up and medications. Apparently patient had 3 episodes of seizures within an hour and has been acting differently. Patient's parents called EMS. Upon arrival to the ER patient was having leftward gaze deviation and was actively seizing. Patient was given 5 mg of IV Versed and seizure stopped. Patient was postictal. Patient is still drowsy and lethargic and unable to provide history. CT head and cervical spine showed no acute intracranial process. Nonspecific white matter changes likely secondary to chronic small vessel ischemic disease. No evidence of cervical spine fracture. Mild COPD changes with intralobular septal thickening and patchy groundglass opacities within the bilateral upper lobes concerning for infectious/infectious inflammatory process. Chest x-ray showed multifocal airspace opacities most pronounced on the left hilar region. Findings concerning for pneumonia. Foot x-ray showed no evidence of acute fracture. No osteomyelitis. Multifocal osteoarthrosis changes. EKG showed sinus tachycardia. Laboratory data showed WBC 18.6 hemoglobin 13.1 and lipase 471 2124 potassium 4.9 chloride 96 bicarb is 19 BUN 16 creatinine 0.66 and blood sugar is 2631 lactic acid 7.9 and albumin 2.9 serum alcohol level is less than 10 and influenza AB and RSV PCR and COVID-19 not detected. Patient is currently ER and requiring oxygen at 6 L via nasal cannula. 24 hour interval change 03/01/2022 Patient is seen and evaluated in follow-up on the selective care unit. Awake and alert in no acute distress; maintaining O2 saturations in the 90s on 2 L/m per nasal cannula. His main complaint is that of fatigue. No worsening shortness of breath, cough or congestion. -- Chest x-ray reveals moderate central vascular congestion with small to moderate right pleural effusion and tiny left pleural effusion. He has D5W at 75 mL per hour. - Follow-up blood culture reveals no growth. Urine culture revealed no growth. ProBNP 18,500. Patient received Lasix 40 mg IV 1; echocardiogram is recommended - Currently on bronchodilators. Antibiotics in the form of Zosyn. Heparin for DVT prophylaxis. Patient underwent radium swallow which did not reveal any aspiration -- patient was switched to oral Lasix 20 mg by mouth daily. He has a incentive spirometer. He also has a flutter valve. IV fluids are in the form of normal saline at rate of 50 mL an hour. He has a chronic smoker. He is using DuoNeb nebulized treatments and this will be switched to [id number] every 4 hours. - Pulmonary service recommending to continue with current management with furt her recommendations once echocardiogram results aren't available -- Patient has been evaluated by cardiology for tachycardia and metoprolol has been resumed at 100 mg twice a day - Patient is recommended abstinence from alcohol and tobacco use -- Possible discharge in next 24 hours once cleared by pulmonary service 24 hour interval change 03/03/2022 the patient is seen and evaluated and discussed with nursing staff; patient continues to be quite irritable and has been refusing treatment; ; psych has been consulted -- patient remains on 2 L of oxygen by nasal cannula. Patient has advanced COPD and cardiomyopathy; pulmonary on board with concerns about opacity in the right middle lobe/right lower lobe which has remained unchanged based on follow-up chest x-rays; CAT scan of the chest was ordered yesterday. -- CAT scan findings reveal patient has moderate sized bilateral pleural effusion with compressive atelectasis of the right lung base and areas of patchy infiltrates in the upper lobes. These areas of groundglass opacities in the upper lobes. However, predominant abnormality remains the bilateral pleural effusion which is moderate in size. Patient has been complaining of difficulties in swallowing. He has developed some oropharyngeal candidiasis and hasn't placed on Diflucan. The risk was a 10.3 with a hemoglobin of 11.6 and the BUN is at panel with a creatinine of 0.7. He remains on bronchodilators. Remains on steroids and is going to be tapered to prednisone burst taper. Patient was evaluated by pulmonary service and recommended thoracentesis; patient initially agreed but now is declining the procedure. Objective - Vital Signs Vital signs: Vital Signs Temp 98.3 F 03/03/22 03:14 Pulse 79 03/03/22 03:14 Resp 17 03/03/22 03:14 BP 128/87 03/03/22 03:14 Pulse Ox 97 03/03/22 08:48 FiO2 40 02/27/22 15:56 Intake & Output 03/02/22 03/03/22 03/03/22 18:59 06:59 18:59 Output Total 300 Balance -300 Weight 58.967 kg Output: Urine 300 Other: Voiding Method Indwelling Catheter Indwelling Catheter # Voids 0 # Bowel Movements 3 1 - Exam GENERAL: The patient is alert and oriented x2, not in any acute distress. Well developed, well nourished. on 5l nasal cannula. HEENT: Pupils are round and equally reacting to light. EOMI. No scleral icterus. No conjunctival pallor. Normocephalic, atraumatic. No pharyngeal erythema. No thyromegaly. CARDIOVASCULAR: S1 and S2 present. No murmurs, rubs, or gallops. PULMONARY: Coarse scattered rhonchi ABDOMEN: Soft, nontender, nondistended, normoactive bowel sounds. No palpable organomegaly. MUSCULOSKELETAL: No joint swelling or deformity. EXTREMITIES: No cyanosis, clubbing, or pedal edema. NEUROLOGICAL: Gross neurological examination did not reveal any focal deficits. SKIN: No rashes. - Labs CBC & Chem 7: 03/03/22 06:49 03/03/22 06:49 Labs: Abnormal Lab Results - Last 24 Hours (Table) 03/02/22 03/02/22 03/03/22 Range/Units 16:58 20:13 06:06 RBC (4.30-5.90) m/uL Hgb (13.0-17.5) gm/dL Hct (39.0-53.0) % Neutrophils # (1.3-7.7) k/uL Lymphocytes # (1.0-4.8) k/uL Sodium (137-145) mmol/L Carbon Dioxide (22-30) mmol/L Glucose (74-99) mg/dL POC Glucose (mg/dL) 169 H 249 H 137 H (70-110) mg/dL Calcium (8.4-10.2) mg/dL 03/03/22 03/03/22 03/03/22 Range/Units 06:49 06:49 11:28 RBC 3.81 L (4.30-5.90) m/uL Hgb 11.6 L (13.0-17.5) gm/dL Hct 36.6 L (39.0-53.0) % Neutrophils # 9.4 H (1.3-7.7) k/uL Lymphocytes # 0.6 L (1.0-4.8) k/uL Sodium 135 L (137-145) mmol/L Carbon Dioxide 31 H (22-30) mmol/L Glucose 130 H (74-99) mg/dL POC Glucose (mg/dL) 148 H (70-110) mg/dL Calcium 7.9 L (8.4-10.2) mg/dL Microbiology - Last 24 Hours (Table) 02/25/22 07:03 Blood Culture - Final Blood No Growth after 144 hours Assessment and Plan Assessment: Acute Seizure disorder with hx of recurrent seizures. Noncompliant with medications. Bilateral upper lobe pneumonia concerning for aspiration pneumonia Sepsis secondary above Severe lactic acidosis 7.9 on admission Acute hypoxemic respiratory failure was on BIPAP currently requiring 5L nasal cannula Hypovolemic hyponatremia Alcohol abuse History of marijuana use Ongoing nicotine addiction Coagulase-negative staph aureus bacteremia likely contamination Hypertension Sinus tachycardia Chronic lower extremity skin changes/wounds. DVT prophylaxis Heparin subcu GI prophylaxis Full Code Plan: Currently maintained on oxygen support 5L nasal cannula Patient was started on Keppra 1000 mg twice daily and continue with neurochecks and seizure and fall precautions. IV Ativan as needed for seizures. Continues on CIWA, monitor for alcohol withdrawal symptoms. Continue thiamine and multivitamins. Patient was given 1 dose of vancomycin. Continue with Zosyn and follow-up culture reports. Continue with NPO pending further recommendations from speech therapy possible barium swallow Maintain aspiration precautions with head of bed up 30* at all times. Continue IV fluids, IV lopressor Neurology, pulmonary and ID is on board. PT and OT consultation in place.
[2022-03-03] MEDS ORDERED: HALOPERIDOL LACTATE 5 MG/ML 1 ML VIAL IVP PRN (19:26)
[2022-03-03 19:46] LABS: Glucose,Whole Blood 120 mg/dL (70-110)
--- NOTE | 2022-03-03 20:51 | P.PN ---
Subjective Progress Note Date: 03/03/22 Principal diagnosis: Aspiration pneumonia Patient is a 61-year-old male with a past medical history significant for chronic on both abuse seizure disorder noncompliant with his seizure medication patient was brought into the ER with acute onset of seizure , patient did have elevated white count and evidence of multifocal infiltrating mostly in the left perihilar region concerning for possible aspiration pneumonia. On today's evaluation that is 03/03/2022, the patient remains to be afebrile, the patient is breathing comfortably on 2 L nasal cannula , the patient denies any chest pain , the patient cough has decreased in intensity and not bringing up any sputum, the patient denies nausea no vomiting no abdominal pain or diarrhea Objective - Vital Signs Vital signs: Vital Signs Temp 97.5 F L 03/03/22 08:00 Pulse 99 03/03/22 08:00 Resp 18 03/03/22 08:00 BP 150/94 03/03/22 08:00 Pulse Ox 97 03/03/22 08:48 FiO2 40 02/27/22 15:56 Intake & Output 03/02/22 03/03/22 03/03/22 18:59 06:59 18:59 Output Total 300 Balance -300 Weight 58.967 kg Output: Urine 300 Other: Voiding Method Indwelling Catheter Indwelling Catheter Indwelling Catheter # Voids 0 # Bowel Movements 3 1 - Exam GENERAL DESCRIPTION: Middle-aged male lying in bed in no distress RESPIRATORY SYSTEM: Unlabored breathing , decreased breath sounds at bases HEART: S1 S2 regular rate and rhythm , ABDOMEN: Soft , no tenderness EXTREMITIES: No edema feet - Labs CBC & Chem 7: 03/03/22 06:49 03/03/22 06:49 Labs: Abnormal Lab Results - Last 24 Hours (Table) 03/02/22 03/02/22 03/03/22 Range/Units 16:58 20:13 06:06 RBC (4.30-5.90) m/uL Hgb (13.0-17.5) gm/dL Hct (39.0-53.0) % Neutrophils # (1.3-7.7) k/uL Lymphocytes # (1.0-4.8) k/uL Sodium (137-145) mmol/L Carbon Dioxide (22-30) mmol/L Glucose (74-99) mg/dL POC Glucose (mg/dL) 169 H 249 H 137 H (70-110) mg/dL Calcium (8.4-10.2) mg/dL 03/03/22 03/03/22 03/03/22 Range/Units 06:49 06:49 11:28 RBC 3.81 L (4.30-5.90) m/uL Hgb 11.6 L (13.0-17.5) gm/dL Hct 36.6 L (39.0-53.0) % Neutrophils # 9.4 H (1.3-7.7) k/uL Lymphocytes # 0.6 L (1.0-4.8) k/uL Sodium 135 L (137-145) mmol/L Carbon Dioxide 31 H (22-30) mmol/L Glucose 130 H (74-99) mg/dL POC Glucose (mg/dL) 148 H (70-110) mg/dL Calcium 7.9 L (8.4-10.2) mg/dL Microbiology - Last 24 Hours (Table) 02/25/22 07:03 Blood Culture - Final Blood No Growth after 144 hours Assessment and Plan (1) Pneumonia Current Visit: Yes Status: Acute Code(s): J18.9 - PNEUMONIA, UNSPECIFIED ORGANISM SNOMED Code(s): 336808945 Plan: 1patient presented to hospital with active seizures in this patient now with evidence of multifocal pneumonia mostly left perihilar region did have elevated vital concerning for pneumonia of aspiration etiology. 2positive blood culture finalized as staph epi likely skin contamination blood cultures repeated 02/25/2022 so far negative. 3patient did have a clinical improvement and patient white count has normalized, patient currently being treated with the Zosyn along with aspiration precaution and plan is to finish therapy with oral antibiotics on discharge and monitor clinical course closely Time with Patient: Less than 30
[2022-03-04 05:55] LABS: Glucose,Whole Blood 112 mg/dL (70-110)
[2022-03-04] MEDS: methylPREDNISolone SOD SUCCI 125 MG/2 ML VIAL IV SCH ×4 (06:09→23:43)
[2022-03-04] MEDS: IPRATROPIUM-ALBUTEROL 3 ML NEB INHALATION SCH ×4 (08:22→21:13)
[2022-03-04] MEDS: FLUCONAZOLE 100 MG TAB PO SCH (09:52)
[2022-03-04] MEDS: FUROSEMIDE 10 MG/ML 4 ML VIAL IV SCH ×2 (09:52→22:07)
[2022-03-04] MEDS: TAMSULOSIN 0.4 MG CAP.ER.24H PO SCH (09:52)
[2022-03-04] MEDS: METOPROLOL TARTRATE 50 MG TAB PO SCH ×2 (09:52→22:07)
[2022-03-04] MEDS: levETIRAcetam 500 MG TAB PO SCH ×2 (09:52→22:07)
[2022-03-04] MEDS: THIAMINE 100 MG TAB PO SCH (09:52)
[2022-03-04] MEDS: HEPARIN SODIUM,PORCINE/PF 5,000 UNIT/0.5 ML SYRINGE SQ SCH ×3 (09:52→23:43)
[2022-03-04] MEDS: FAMOTIDINE 20 MG TAB PO SCH (09:52)
[2022-03-04] MEDS: ASPIRIN 81 MG PO SCH (09:52)
[2022-03-04] MEDS: PIPERACILLIN-TAZOBACTAM 3.375 GM in SODIUM CHLORIDE 0.9% 100 ML IVPB SCH ×3 (09:53→23:45)
[2022-03-04 10:40] LABS: Basophils % (A) 0 %; Eosinophils % (A) 0 %; HCT 37.6 % (39.0-53.0); Hypochromasia Moderate; Lymphocytes # (A) 0.7 k/uL (1.0-4.8); Lymphocytes % (A) 7 %; MCH 30.5 pg (25.0-35.0); MCHC 31.9 g/dL (31.0-37.0); MCV 95.6 fL (80.0-100.0); Mean Platelet Volume 8.6; Monocytes # (A) 0.6 k/uL (0-1.0); Monocytes % (A) 5 %; Neutrophils # (A) 9.2 k/uL (1.3-7.7); Neutrophils % (A) 86 %; Platelet Count 399 k/uL (150-450); RBC 3.93 m/uL (4.30-5.90); RDW 13.6 % (11.5-15.5); WBC 10.8 k/uL (3.8-10.6)
[2022-03-04 11:00] LABS: African American GFR (CKD) >90 (>60 ml/min/1.73 sqM); Anion Gap 5 mmol/L; Blood Urea Nitrogen 13 mg/dL (9-20); Calcium 7.8 mg/dL (8.4-10.2); Carbon Dioxide 38 mmol/L (22-30); Chloride 97 mmol/L (98-107); Glucose 94 mg/dL (74-99); Non-African American GFR(CKD) >90 (>60 ml/min/1.73 sqM); Potassium 3.1 mmol/L (3.5-5.1); Sodium 140 mmol/L (137-145)
--- NOTE | 2022-03-04 11:09 | P.PN ---
Subjective Progress Note Date: 03/04/22 61-year-old male who presents to the emergency room on February 21, via EMS, for possible seizure. The patient has a history of chronic alcohol abuse, and chronic foot wounds. He apparently does have a history of seizure disorder, and is apparently noncompliant with his seizure medications. He apparently presented to the emergency department with acute onset of seizure, earlier on the day of admission, which was February 21. He apparently had 3 different seizure episodes within one hour. When EMS arrived, he apparently was actively seizing. They administered 5 mg of IV Versed, and the seizure stopped. The patient was apparently postictal after that. Since being in the emergency department, the patient has been improving neurologically. He was on BiPAP for a short period of time with settings of 15/5 and 60%, up until about 3:00 in the morning. Now he is on between 6-7 L of nasal oxygen. He is getting saline at keep vein open. Current vital signs include sinus tachycardia with a rate of 138, blood pressure 116/85 respiratory rate 22 and saturations 90-92%. White count 26.4, hemoglobin 13.5, hematocrit 43.6, and platelet count was normal. Most recent blood gases show pO2 71, pCO2 47, and a pH is 7.26. That was on BiPAP at 60%. Troponin was 0.030. Initial pH was 7.12. Sodium 124, potassium 4.9, chlorides 96, CO2 19, BUN 6, creatinine 0.66. Urine screen was positive f or benzodiazepines, and marijuana. Chest x-ray shows patchy airspace disease in the left hilar region, consistent with possible aspiration pneumonia. The patient is seen today 02/23/2022 in follow-up on the selective care unit. He is currently resting fairly comfortably in bed. Somewhat lethargic. He is on BiPAP 15/5 and 60% FiO2 with O2 saturations in the 90s. EEG revealed possible low amplitude sharp appearing waves in the right frontotemporal region. This may suggest underlying cortical irritability intensive for seizures. No seizures were recorded. Blood cultures positive for coag-negative staph. Urine culture negative. White count 21.1. Hemoglobin 12.4. Platelets 331. Sodium 138. Potassium 4.8. BUN 7. Creatinine 0.52. AST 39. ALT 18. He is continued on bronchodilators and Zosyn. Heparin for DVT prophylaxis. Remains in the CIWA protocol. Remains on Keppra. The patient seen today 02/24/2022 in follow-up on the selective care unit. He is currently sitting up in bed. More awake and arousable. Currently on 5 L high flow nasal cannula. He has been alternating with BiPAP 15/5 and 60% FiO2. He has normal saline at 50 MLS per hour. Maintained on Zosyn. Bronchodilators. Heparin for DVT prophylaxis. No seizure activity. Remains in CIWA protocol. Last Ativan requirement at 4 AM this morning. The cultures positive for coag- negative staph. White count 15.4. Hemoglobin 11.1. Platelets 325. Sodium 139. Potassium 3.8. BUN 9. Creatinine 0.75. The patient is seen today 02/25/2022 in follow-up on the selective care unit. He is more awake and alert today. Denies any worsening shortness of breath, cough or congestion. Currently maintaining O2 saturations in the 90s on 5 L/m per nasal cannula. He had initially been on BiPAP 5 over 5 and 60% FiO2. Chest x-ray revealed worsening scattered airspace opacities with a new right lower lobe collapse. MRI of the brain revealed right hippocampus and fungus restricted diffusion favoring sequela patient seizure. Generalized atrophy changes and mild nonspecific white matter changes secondary to small vessel ischemic disease. Moderate paranasal sinus disease. Carotid Dopplers revealed less than 50% stenosis bilaterally. Blood cultures revealed coag-negative staph. White count 11.8. Hemoglobin 11.2. Sodium 143. Potassium 3.9. BUN 12. Creatinine 0.57. He remains on DuoNeb inhalations. Antibiotics in the form of Zosyn. Heparin for DVT prophylaxis. Remains on Keppra. Normal saline at 100 ML's per hour. No seizure activity. The patient is seen today 02/26/2022 in follow-up on the selective care unit. He is currently resting comfortably in bed. Awake and alert in no acute distress. He is maintaining O2 saturations in the 90s on 5 L/m per nasal cannula. D545 at 75 ML's per hour. He is continued on bronchodilators. Continue on heparin for DVT prophylaxis. Remains on antibiotics in the form of Zosyn. Follow-up blood cultures revealing no growth. Urine culture revealed no growth. No seizure activity. The patient is seen today 02/27/2022 in follow-up on the selective care unit. He is sitting up in bed. Awake and alert in no acute distress. Currently on Bi PAP 15/5 on 40% FiO2 alternating with 5 L high flow nasal cannula. Receiving D5 W at 50 MLS per hour Follow-up blood cultures revealed no growth. Sodium 143. Potassium 4.8. Chloride 116. BUN 13. Creatinine 0.51. Glucose 103. The plan is for a barium swallow today. She remains on bronchodilators, Zosyn, heparin for DVT prophylaxis. Continue to CIWA protocol. No seizures noted. The patient is seen today 02/28/2022 in follow-up on the selective care unit. He is sitting up in bed. Awake and alert in no acute distress. Currently maintaining O2 saturations in the 90s on 2 L/m per nasal cannula. His main complaint is that of fatigue. No worsening shortness of breath, cough or conge stion. No seizure activity. He's been afebrile. Hemodynamically stable. Chest x-ray reveals moderate central vascular congestion with small to moderate right pleural effusion and tiny left pleural effusion. He has D5W at 75 mL per hour. Follow-up blood culture reveals no growth. Urine culture revealed no growth. ProBNP 18,500. Has only been in a -135 mL balance. Currently on bronchodilators. Antibiotics in the form of Zosyn. Heparin for DVT prophylaxis. On 03/01/2022, the patient is being seen for a follow-up. Remains on O2 at 2 L and has a BiPAP at the bedside. Breath sounds are quite diminished bilaterally and the patient is a chronic smoker. No chest pain. He has a congested cough. No aspiration. The patient is on Lasix and the patient was switched to oral Lasix 20 mg by mouth daily. He has a incentive spirometer. He also has a flutter valve. IV fluids are in the form of normal saline at rate of 50 mL an hour. He has a chronic smoker. He is using DuoNeb nebulized treatments and this will be switched to [id number] every 4 hours. He is on heparin subcu for DVT prophylaxis. No other significant events otherwise for now. No seizure activity. He has chronic alcoholism in his been a chronic smoker. 03/02/2022, the patient remains on 2 L of oxygen by nasal cannula. Not utilizing the BiPAP. He has a flutter valve at the bedside and the patient and incentive spirometer. He remains on bronchodilators with DuoNeb about treatments [id number]. He had an echo of the heart yesterday and the patient was found to have a ejection fraction of 30% and LV's impaired. There is also evidence of apical septal and lateral inferior wall hypokinesis. RVSP 30. Mild aortic regurgitation and mitral regurgitation is also present. No evidence of any pericardial effusion. The follow-up chest x-ray that was done today shows cardiomegaly, effusions the lung bases and persistent right lower lobe opacification. The right mid and right lower lobe opacity is unchanged. The patient remains on IV Zosyn. 03/03/2022, the patient remains on 2 L of oxygen by nasal cannula. As mentioned, he has advanced COPD and cardiomyopathy also. There was a concern of his ongoing opacity in the right middle lobe/right lower lobe which has remained unchanged based on follow-up chest x-rays. Based on that, a CAT scan of the chest was ordered yesterday. Based on the CAT scan findings, the patient has moderate sized bilateral pleural effusion with compressive atelectasis of the right lung base. There is also areas of patchy infiltrates in the upper lobes. These areas of groundglass opacities in the upper lobes. However, predominant abnormality remains the bilateral pleural effusion which is moderate in size. At the same time, is complaining of difficulties in swallowing. He has developed some oropharyngeal candidiasis that'll be treated accordingly. The risk was a 10.3 with a hemoglobin of 11.6 and the BUN is at panel with a creatinine of 0.7. He remains on bronchodilators. Remains on steroids and is going to be tapered to prednisone burst taper. Obviously, the patient will need thoracentesis to give him symptomatic relief. On 03/04/2022, the patient remains on 2 L of oxygen by nasal cannula. Still quite lethargic. As mentioned yesterday, the patient was found to have bilateral pleural effusion moderate to large in size. I offered them thoracentesis. He declined. Based on that, he was started on diuretics and the patient is currently on a negative fluid balance. His BUN is at 30 with a creatinine of 0.5. The discomfort of 10.8. Is currently on Lasix at a dose of 40 mg IV every 12 hours. Objective - Vital Signs Vital signs: Vital Signs Temp 98.1 F 03/04/22 03:50 Pulse 86 03/04/22 03:50 Resp 16 03/04/22 03:50 BP 128/82 03/04/22 03:50 Pulse Ox 98 03/04/22 03:50 FiO2 40 02/27/22 15:56 Intake & Output 03/03/22 03/04/22 03/04/22 18:59 06:59 18:59 Output Total 300 Balance -300 Output: Urine 300 Other: Voiding Method Indwelling Catheter Urinal # Voids 2 # Bowel Movements 1 - Exam GENERAL EXAM: Awake, alert, 61-year-old male, sitting up in bed, on 2 L nasal cannula, comfortable in no apparent distress. HEAD: Normocephalic. EYES: Normal reaction of pupils, equal size. NOSE: Clear with pink turbinates. THROAT: No erythema or exudates. NECK: No masses, no JVD. CHEST: No chest wall deformity. LUNGS: Equal air entry with bilateral scattered rhonchi and crackles in the bases right greater than left. CVS: S1 and S2 normal with no audible murmur, regular rhythm. ABDOMEN: No hepatosplenomegaly, normal bowel sounds, no guarding or rigidity. SPINE: No scoliosis or deformity SKIN: No rashes CENTRAL NERVOUS SYSTEM: Alert, tone is normal in all 4 extremities. EXTREMITIES: Scaly patches on the bottom of the feet. There is no peripheral ed malcolm. No clubbing, no cyanosis. Peripheral pulses are intact. - Labs CBC & Chem 7: 03/04/22 09:38 03/04/22 09:38 Labs: Abnormal Lab Results - Last 24 Hours (Table) 03/03/22 03/03/22 03/03/22 Range/Units 11:28 16:25 19:45 WBC (3.8-10.6) k/uL RBC (4.30-5.90) m/uL Hgb (13.0-17.5) gm/dL Hct (39.0-53.0) % Neutrophils # (1.3-7.7) k/uL Lymphocytes # (1.0-4.8) k/uL Potassium (3.5-5.1) mmol/L Chloride (98-107) mmol/L Carbon Dioxide (22-30) mmol/L Creatinine (0.66-1.25) mg/dL POC Glucose (mg/dL) 148 H 114 H 120 H (70-110) mg/dL Calcium (8.4-10.2) mg/dL 03/04/22 03/04/22 03/04/22 Range/Units 05:53 09:38 09:38 WBC 10.8 H (3.8-10.6) k/uL RBC 3.93 L (4.30-5.90) m/uL Hgb 12.0 L (13.0-17.5) gm/dL Hct 37.6 L (39.0-53.0) % Neutrophils # 9.2 H (1.3-7.7) k/uL Lymphocytes # 0.7 L (1.0-4.8) k/uL Potassium 3.1 L (3.5-5.1) mmol/L Chloride 97 L (98-107) mmol/L Carbon Dioxide 38 H (22-30) mmol/L Creatinine 0.55 L (0.66-1.25) mg/dL POC Glucose (mg/dL) 112 H (70-110) mg/dL Calcium 7.8 L (8.4-10.2) mg/dL Microbiology - Last 24 Hours (Table) 02/25/22 07:03 Blood Culture - Final Blood No Growth after 144 hours Assessment and Plan Plan: Acute hypoxemic respiratory failure secondary to suspected aspiration pneumonia, with increasing right lower lobe collapse. Barium swallow from 02/27/2022 revealed no penetration or aspiration identified, currently on 2 L of oxygen by nasal cannula, chest x-ray still showing evidence of pulmonary edema with possible bilateral pleural effusion and increased infiltration of the right more than left. The patient is currently on 2 L of oxygen by nasal cannula utilizing BiPAP overnight. The patient completed a course of IV Zosyn On today's evaluation, no major change in his overall condition. The patient has bilateral pleural effusion moderate in size more so on the right and passive atelectasis of the lung base in addition to some areas of patchy groundglass pulmonary infiltrates. This is based on the CAT scan of the chest that was done yesterday. Suspect transudative effusion secondary to CHF. systolic congestive heart failure with previous echocardiogram revealing ejection fraction of 30 %, proBNP greater than 18,000, received diuretics during his course in the intensive care unit Recurrent seizure activity, and the patient noncompliant with epilepsy medications. MRI of the brain revealed right hippocampus and uncus restricted diffusion favoring sequela of patient's seizures. History of chronic tobacco use and nicotine dependence. History of hypertension. History of chronic alcohol abuse. History of marijuana use. Chronic wounds, lower extremities. Oropharyngeal candidiasis Plan: The patient continues to decline thoracentesis. I started him on diuretics and the patient is responding to the diuretics for now. Diflucan 100 mg by mouth daily for oropharyngeal candidiasis prednisone burst taper Overall respiratory status is stable currently on 2 L of O2 nasal cannula Repeat echocardiogram showed an ejection fraction of 30% Chest x-ray from today is unchanged Continue bronchodilators Continue flutter valve, CPT to right chest We'll continue to follow
[2022-03-04 11:49] LABS: Glucose,Whole Blood 123 mg/dL (70-110)
--- NOTE | 2022-03-04 14:14 | P.PN ---
Subjective Progress Note Date: 03/04/22 Principal diagnosis: Aspiration pneumonia Patient is a 61-year-old male with a past medical history significant for chronic on both abuse seizure disorder noncompliant with his seizure medication patient was brought into the ER with acute onset of seizure , patient did have elevated white count and evidence of multifocal infiltrating mostly in the left perihilar region concerning for possible aspiration pneumonia. On today's evaluation that is 03/04/2022, the patient continues to be afebrile, the patient is breathing comfortably on 2 L nasal cannula , the patient denies any chest pain , the patient denies any worsening cough or sputum production no nausea no vomiting no abdominal pain no diarrhea Objective - Vital Signs Vital signs: Vital Signs Temp 97.4 F L 03/04/22 08:00 Pulse 95 03/04/22 11:52 Resp 14 03/04/22 08:00 BP 146/78 03/04/22 08:00 Pulse Ox 93 L 03/04/22 08:00 FiO2 40 02/27/22 15:56 Intake & Output 03/03/22 03/04/22 03/04/22 18:59 06:59 18:59 Intake Total 0 Output Total 300 Balance -300 Intake: Oral 0 Output: Urine 300 Other: Voiding Method Indwelling Catheter Urinal Urinal # Voids 2 # Bowel Movements 1 - Exam GENERAL DESCRIPTION: Middle-aged male lying in bed in no distress RESPIRATORY SYSTEM: Unlabored breathing , decreased breath sounds at bases HEART: S1 S2 regular rate and rhythm , ABDOMEN: Soft , no tenderness EXTREMITIES: No edema feet - Labs CBC & Chem 7: 03/04/22 09:38 03/04/22 09:38 Labs: Abnormal Lab Results - Last 24 Hours (Table) 03/03/22 03/03/22 03/04/22 Range/Units 16:25 19:45 05:53 WBC (3.8-10.6) k/uL RBC (4.30-5.90) m/uL Hgb (13.0-17.5) gm/dL Hct (39.0-53.0) % Neutrophils # (1.3-7.7) k/uL Lymphocytes # (1.0-4.8) k/uL Potassium (3.5-5.1) mmol/L Chloride (98-107) mmol/L Carbon Dioxide (22-30) mmol/L Creatinine (0.66-1.25) mg/dL POC Glucose (mg/dL) 114 H 120 H 112 H (70-110) mg/dL Calcium (8.4-10.2) mg/dL 03/04/22 03/04/22 03/04/22 Range/Units 09:38 09:38 11:48 WBC 10.8 H (3.8-10.6) k/uL RBC 3.93 L (4.30-5.90) m/uL Hgb 12.0 L (13.0-17.5) gm/dL Hct 37.6 L (39.0-53.0) % Neutrophils # 9.2 H (1.3-7.7) k/uL Lymphocytes # 0.7 L (1.0-4.8) k/uL Potassium 3.1 L (3.5-5.1) mmol/L Chloride 97 L (98-107) mmol/L Carbon Dioxide 38 H (22-30) mmol/L Creatinine 0.55 L (0.66-1.25) mg/dL POC Glucose (mg/dL) 123 H (70-110) mg/dL Calcium 7.8 L (8.4-10.2) mg/dL Microbiology - Last 24 Hours (Table) 02/25/22 07:03 Blood Culture - Final Blood No Growth after 144 hours Assessment and Plan (1) Pneumonia Current Visit: Yes Status: Acute Code(s): J18.9 - PNEUMONIA, UNSPECIFIED ORGANISM SNOMED Code(s): 545669123 Plan: 1patient presented to hospital with active seizures in this patient now with evidence of multifocal pneumonia mostly left perihilar region did have elevated vital concerning for pneumonia of aspiration etiology. 2positive blood culture finalized as staph epi likely skin contamination blood cultures repeated 02/25/2022 so far negative. 3patient is slowly clinically improving and the patient white count is normal, patient to continue with the Zosyn along with aspiration precaution and monitor clinical course closely Time with Patient: Less than 30
[2022-03-04] MEDS ORDERED: Potassium Replacement Protocol 1 EACH MISC MISCELLANE PRN (14:25)
[2022-03-04] MEDS: POTASSIUM CHLORIDE ER 20 MEQ TAB.ER PO SCH ×2 (16:52→16:53)
[2022-03-04 16:53] LABS: Glucose,Whole Blood 175 mg/dL (70-110)
--- NOTE | 2022-03-04 17:47 | P.PN ---
Subjective Progress Note Date: 03/04/22 Principal diagnosis: Acute hypoxemic respiratory failure Aspiration pneumonia Recurrent seizure activity 61-year-old male with a known history of seizure disorder, currently with a smoker and current alcohol abuse and currently not on any antiepileptic drugs was brought to ER by ambulance due to seizures.. Patient was also having chronic foot wounds and is on follow-up with wound care center. Patient is also noncompliant with follow-up and medications. Apparently patient had 3 episodes of seizures within an hour and has been acting differently. Patient's parents called EMS. Upon arrival to the ER patient was having leftward gaze deviation and was actively seizing. Patient was given 5 mg of IV Versed and seizure stopped. Patient was postictal. Patient is still drowsy and lethargic and unable to provide history. CT head and cervical spine showed no acute intracranial process. Nonspecific white matter changes likely secondary to chronic small vessel ischemic disease. No evidence of cervical spine fracture. Mild COPD changes with intralobular septal thickening and patchy groundglass opacities within the bilateral upper lobes concerning for infectious/infectious inflammatory process. Chest x-ray showed multifocal airspace opacities most pronounced on the left hilar region. Findings concerning for pneumonia. Foot x-ray showed no evidence of acute fracture. No osteomyelitis. Multifocal osteoarthrosis changes. EKG showed sinus tachycardia. Laboratory data showed WBC 18.6 hemoglobin 13.1 and lipase 471 2124 potassium 4.9 chloride 96 bicarb is 19 BUN 16 creatinine 0.66 and blood sugar is 2631 lactic acid 7.9 and albumin 2.9 serum alcohol level is less than 10 and influenza AB and RSV PCR and COVID-19 not detected. Patient is currently ER and requiring oxygen at 6 L via nasal cannula. 24 hour interval change 03/01/2022 Patient is seen and evaluated in follow-up on the selective care unit. Awake and alert in no acute distress; maintaining O2 saturations in the 90s on 2 L/m per nasal cannula. His main complaint is that of fatigue. No worsening shortness of breath, cough or congestion. -- Chest x-ray reveals moderate central vascular congestion with small to moderate right pleural effusion and tiny left pleural effusion. He has D5W at 75 mL per hour. - Follow-up blood culture reveals no growth. Urine culture revealed no growth. ProBNP 18,500. Patient received Lasix 40 mg IV 1; echocardiogram is recommended - Currently on bronchodilators. Antibiotics in the form of Zosyn. Heparin for DVT prophylaxis. Patient underwent radium swallow which did not reveal any aspiration -- patient was switched to oral Lasix 20 mg by mouth daily. He has a incentive spirometer. He also has a flutter valve. IV fluids are in the form of normal saline at rate of 50 mL an hour. He has a chronic smoker. He is using DuoNeb nebulized treatments and this will be switched to [id number] every 4 hours. - Pulmonary service recommending to continue with current management with furt her recommendations once echocardiogram results aren't available -- Patient has been evaluated by cardiology for tachycardia and metoprolol has been resumed at 100 mg twice a day - Patient is recommended abstinence from alcohol and tobacco use -- Possible discharge in next 24 hours once cleared by pulmonary service 24 hour interval change 03/03/2022 the patient is seen and evaluated and discussed with nursing staff; patient continues to be quite irritable and has been refusing treatment; ; psych has been consulted -- patient remains on 2 L of oxygen by nasal cannula. Patient has advanced COPD and cardiomyopathy; pulmonary on board with concerns about opacity in the right middle lobe/right lower lobe which has remained unchanged based on follow-up chest x-rays; CAT scan of the chest was ordered yesterday. -- CAT scan findings reveal patient has moderate sized bilateral pleural effusion with compressive atelectasis of the right lung base and areas of patchy infiltrates in the upper lobes. These areas of groundglass opacities in the upper lobes. However, predominant abnormality remains the bilateral pleural effusion which is moderate in size. Patient has been complaining of difficulties in swallowing. He has developed some oropharyngeal candidiasis and hasn't placed on Diflucan. The risk was a 10.3 with a hemoglobin of 11.6 and the BUN is at panel with a creatinine of 0.7. He remains on bronchodilators. Remains on steroids and is going to be tapered to prednisone burst taper. Patient was evaluated by pulmonary service and recommended thoracentesis; patient initially agreed but now is declining the procedure. 24 hour interval change 03/04/2022 the patient is seen and evaluated in room at bedside; remains on 2 L of oxygen by nasal cannula. -- the patient was found to have bilateral pleural effusion moderate to large in size. I offered them thoracentesis. He declined. Based on that, he was started on diuretics and the patient is currently on a negative fluid balance. His BUN is at 30 with a creatinine of 0.5. The discomfort of 10.8. Is currently on Lasix at a dose of 40 mg IV every 12 hours. The patient continues to decline thoracentesis; patient has been started him on diuretics and the patient is responding to the diuretics for now. Diflucan 100 mg by mouth daily for oropharyngeal candidiasis -- prednisone burst taper Overall respiratory status is stable currently on 2 L of O2 nasal cannula -Repeat echocardiogram showed an ejection fraction of 30% Continue bronchodilators Objective - Vital Signs Vital signs: Vital Signs Temp 97.4 F L 03/04/22 08:00 Pulse 95 03/04/22 11:52 Resp 14 03/04/22 08:00 BP 146/78 03/04/22 08:00 Pulse Ox 93 L 03/04/22 08:00 FiO2 40 02/27/22 15:56 Intake & Output 03/03/22 03/04/22 03/04/22 18:59 06:59 18:59 Intake Total 0 Output Total 300 Balance -300 Intake: Oral 0 Output: Urine 300 Other: Voiding Method Indwelling Catheter Urinal Urinal # Voids 2 # Bowel Movements 1 - Exam GENERAL: The patient is alert and oriented x2, not in any acute distress. Well developed, well nourished. on 5l nasal cannula. HEENT: Pupils are round and equally reacting to light. EOMI. No scleral icterus. No conjunctival pallor. Normocephalic, atraumatic. No pharyngeal erythema. No thyromegaly. CARDIOVASCULAR: S1 and S2 present. No murmurs, rubs, or gallops. PULMONARY: Coarse scattered rhonchi ABDOMEN: Soft, nontender, nondistended, normoactive bowel sounds. No palpable organomegaly. MUSCULOSKELETAL: No joint swelling or deformity. EXTREMITIES: No cyanosis, clubbing, or pedal edema. NEUROLOGICAL: Gross neurological examination did not reveal any focal deficits. SKIN: No rashes. - Labs CBC & Chem 7: 03/04/22 09:38 03/04/22 09:38 Labs: Abnormal Lab Results - Last 24 Hours (Table) 03/03/22 03/03/22 03/04/22 Range/Units 16:25 19:45 05:53 WBC (3.8-10.6) k/uL RBC (4.30-5.90) m/uL Hgb (13.0-17.5) gm/dL Hct (39.0-53.0) % Neutrophils # (1.3-7.7) k/uL Lymphocytes # (1.0-4.8) k/uL Potassium (3.5-5.1) mmol/L Chloride (98-107) mmol/L Carbon Dioxide (22-30) mmol/L Creatinine (0.66-1.25) mg/dL POC Glucose (mg/dL) 114 H 120 H 112 H (70-110) mg/dL Calcium (8.4-10.2) mg/dL 03/04/22 03/04/22 03/04/22 Range/Units 09:38 09:38 11:48 WBC 10.8 H (3.8-10.6) k/uL RBC 3.93 L (4.30-5.90) m/uL Hgb 12.0 L (13.0-17.5) gm/dL Hct 37.6 L (39.0-53.0) % Neutrophils # 9.2 H (1.3-7.7) k/uL Lymphocytes # 0.7 L (1.0-4.8) k/uL Potassium 3.1 L (3.5-5.1) mmol/L Chloride 97 L (98-107) mmol/L Carbon Dioxide 38 H (22-30) mmol/L Creatinine 0.55 L (0.66-1.25) mg/dL POC Glucose (mg/dL) 123 H (70-110) mg/dL Calcium 7.8 L (8.4-10.2) mg/dL Microbiology - Last 24 Hours (Table) 02/25/22 07:03 Blood Culture - Final Blood No Growth after 144 hours Assessment and Plan Assessment: Acute Seizure disorder with hx of recurrent seizures. Noncompliant with medications. Bilateral upper lobe pneumonia concerning for aspiration pneumonia Sepsis secondary above Severe lactic acidosis 7.9 on admission Acute hypoxemic respiratory failure was on BIPAP currently requiring 5L nasal cannula Hypovolemic hyponatremia Alcohol abuse History of marijuana use Ongoing nicotine addiction Coagulase-negative staph aureus bacteremia likely contamination Hypertension Sinus tachycardia Chronic lower extremity skin changes/wounds. DVT prophylaxis Heparin subcu GI prophylaxis Full Code Plan: Currently maintained on oxygen support 5L nasal cannula Patient was started on Keppra 1000 mg twice daily and continue with neurochecks and seizure and fall precautions. IV Ativan as needed for seizures. Continues on CIWA, monitor for alcohol withdrawal symptoms. Continue thiamine and multivitamins. Patient was given 1 dose of vancomycin. Continue with Zosyn and follow-up culture reports. Continue with NPO pending further recommendations from speech therapy possible barium swallow Maintain aspiration precautions with head of bed up 30* at all times. Continue IV fluids, IV lopressor Neurology, pulmonary and ID is on board. PT and OT consultation in place.
[2022-03-04 19:54] LABS: Glucose,Whole Blood 268 mg/dL (70-110)
--- NOTE | 2022-03-04 20:47 | P.CN ---
Psychiatric Consult - . Consult date: 03/03/22 Consult:: IDENTIFYING DATA: This patient is a 61 year old male with alcohol use disorder, seizure disorder, noncompliance with seizure medication, who was admitted to the medical unit on 02/21/22 for alcohol withdrawal and seizures, and now has multifocal pneumonia and altered mental status. REASON FOR REFERRAL: Psychiatry was consulted for anxiety, ETOH. HISTORY OF PRESENT ILLNESS: The patient presented to the hospital on 02/21/22 w ith seizures in the context of noncompliance with seizure meds and alcohol abuse. He was placed on CIWA and has not required Ativan per CIWA since 02/24/22. Per nurse, he became confused, anxious, wanted to leave, and agitated and was given Ativan 1 mg earlier today but has been more confused. I evaluated patient on 03/03/2022 and he was found in his bed, appears confused and talking to himself. He is alert and oriented to person, place, month/year (incorrectly states it is February 28) currently, but this appears to wax and wane during the day. At this time patient denies any suicidal or homicidal ideations, intent or plan. Patient denies any auditory, visual hallucinations and denies any paranoia or delusions. Patients admits to drinking 3 "tallboy" beers per day. The rest of the history is unreliable due to his altered mental status. PAST PSYCHIATRIC HISTORY: History of alcohol dependence. Unable to obtain rest of history due to altered mental status. PAST MEDICAL HISTORY: Past Medical History: Seizure Disorder History of Any Multi-Drug Resistant Organisms: None Reported Additional Past Surgical History / Comment(s): Right leg fracture repair Past Psychological History: No Psychological Hx Reported Smoking Status: Current every day smoker Past Alcohol Use History: None Reported, Daily Past Drug Use History: None Reported ALLERGIES: as per EMR. CHEMICAL DEPENDENCY HISTORY: as per HPI. FAMILY PSYCHIATRIC/SUBSTANCE USE HISTORY: Unable to obtain due to altered mental status. SOCIAL HISTORY: Unable to obtain due to altered mental status. MENTAL STATUS EXAM: General Appearance: Patient appears to be older than stated age, disheveled, poor hygiene and grooming, wearing hospital gown with fair eye contact. Behavior: Patient is calmly lying in bed without any agitated behavior, but is confused. Speech: Patient's speech is fluent and non-pressured. Mood/Affect: Patient reports their mood is "ok", affect is congruent Suicidality/Homicidality: Patient denies having any suicidal or homicidal ideation intent or plan. Perceptions: Patient denies any visual hallucinations and denies any auditory hallucinations Though content/process: There is no evidence of any delusional thought content and thought process is linear. Memory and concentration: Alert and oriented to person, place, month/year but this appears to wax/wane. Judgment and insight: Poor IMPRESSIONS: Delirium, multifactorial (multiple medical comorbidities) Alcohol use disorder Alcohol withdrawal - resolved. PLAN: -At this time patient DOES NOT meet criteria for inpatient psychiatric admissi on. -Patient DOES NOT have decision making capacity at this time and is unable to reason through and communicate/appreciate the risks, benefits and alternatives to treatment. -Delirium precautions recommended with patient including - avoiding use of narcotics and BRAKE HOLDER sedatives, limit anticholinergic medications when possible, frequent re-orientation, minimize use of restraints, open window shades during the day and close them at night. -Would recommend the following medication changes/additions: Haldol 0.5 mg IV Q4H PRN for agitation/psychosis. May increase to Haldol 1 mg IV Q4H PRN if unsatisfactory response with 0.5 mg dose. Discontinue Ativan per CIWA due to delirium and time since last drink. -Continue to reassess safety and initiate 1:1 sitter if safety concerns arise. -Cannot leave AMA at this time. Patient will need a petition and certification if attempting to leave AMA. -hospitality workers to provide patient with outpatient mental health/psychiatry resources for appropriate follow up upon discharge. -[facility] Collector spoke with patient about substance abuse and the harmful effects on medical and mental health, patient verbally understood and agreed. -hospitality workers to provide patient substance use treatment resources including AA meetings in the community. -hospitality workers to provide patient with access line number to call for inpatient substance rehab -Communicated plan to patient's nurse on 03/03/2022. -Will continue to follow along -Please contact with any questions. 03/03/22 19:25 03/03/22 19:29
[2022-03-05 06:01] LABS: Glucose,Whole Blood 184 mg/dL (70-110)
[2022-03-05] MEDS: methylPREDNISolone SOD SUCCI 125 MG/2 ML VIAL IV SCH ×4 (06:26→23:35)
[2022-03-05 06:51] LABS: Basophils % (A) 0 %; Eosinophils % (A) 0 %; HCT 34.4 % (39.0-53.0); HGB 11.1 gm/dL (13.0-17.5); Hypochromasia Slight; Lymphocytes # (A) 0.7 k/uL (1.0-4.8); Lymphocytes % (A) 7 %; MCH 29.9 pg (25.0-35.0); MCHC 32.1 g/dL (31.0-37.0); MCV 93.1 fL (80.0-100.0); Mean Platelet Volume 8.8; Monocytes # (A) 0.5 k/uL (0-1.0); Monocytes % (A) 5 %; Neutrophils % (A) 87 %; Platelet Count 366 k/uL (150-450); RBC 3.69 m/uL (4.30-5.90); RDW 13.6 % (11.5-15.5); WBC 10.4 k/uL (3.8-10.6)
[2022-03-05 07:03] LABS: African American GFR (CKD) >90 (>60 ml/min/1.73 sqM); Blood Urea Nitrogen 17 mg/dL (9-20); Calcium 7.5 mg/dL (8.4-10.2); Chloride 90 mmol/L (98-107); Glucose 152 mg/dL (74-99); Non-African American GFR(CKD) >90 (>60 ml/min/1.73 sqM); Potassium 2.8 mmol/L (3.5-5.1); Sodium 136 mmol/L (137-145)
[2022-03-05 07:09] LABS: Anion Gap 1 mmol/L
[2022-03-05 07:12] LABS: Carbon Dioxide 45 mmol/L (22-30)
[2022-03-05] MEDS: IPRATROPIUM-ALBUTEROL 3 ML NEB INHALATION SCH ×4 (07:29→19:33)
[2022-03-05] MEDS ORDERED: Potassium Replacement Protocol 1 EACH MISC MISCELLANE PRN (07:35)
--- NOTE | 2022-03-05 07:35 | XR ---
EXAMINATION TYPE: XR chest 1V DATE OF EXAM: 03/05/2022 7:21 AM COMPARISON: Chest radiographs from 03/02/2022 TECHNIQUE: XR chest 1V Portable AP radiograph of the chest. CLINICAL INDICATION:Male, 61 years old with history of chf; FINDINGS: Lungs/Pleura: Blunting of the left costophrenic angle. There remains right lower lung airspace opacit ies. Increased lucency and increased interstitial lung markings in lung apices. No pneumothorax. Pulmonary vascularity: Unremarkable. Heart/mediastinum: Cardiomediastinal silhouette is unremarkable. Musculoskeletal: No acute osseous pathology. IMPRESSION: 1. No significant change from one day prior with right lower lung airspace opacities. 2. Trace left pleural effusion. 3. COPD changes.
[2022-03-05] MEDS: HEPARIN SODIUM,PORCINE/PF 5,000 UNIT/0.5 ML SYRINGE SQ SCH ×3 (08:59→23:35)
[2022-03-05] MEDS: FUROSEMIDE 10 MG/ML 4 ML VIAL IV SCH ×2 (08:59→20:20)
[2022-03-05] MEDS: levETIRAcetam 500 MG TAB PO SCH ×2 (09:00→20:20)
[2022-03-05] MEDS: THIAMINE 100 MG TAB PO SCH (09:00)
[2022-03-05] MEDS: FAMOTIDINE 20 MG TAB PO SCH (09:00)
[2022-03-05] MEDS: POTASSIUM CHLORIDE ER 20 MEQ TAB.ER PO SCH ×3 (09:00→12:41)
[2022-03-05] MEDS: TAMSULOSIN 0.4 MG CAP.ER.24H PO SCH (09:00)
[2022-03-05] MEDS: PIPERACILLIN-TAZOBACTAM 3.375 GM in SODIUM CHLORIDE 0.9% 100 ML IVPB SCH ×3 (09:00→23:35)
[2022-03-05] MEDS: FLUCONAZOLE 100 MG TAB PO SCH (09:00)
[2022-03-05] MEDS: ASPIRIN 81 MG PO SCH (09:00)
[2022-03-05] MEDS: METOPROLOL TARTRATE 50 MG TAB PO SCH ×2 (09:00→20:20)
--- NOTE | 2022-03-05 09:23 | P.PN ---
Subjective Progress Note Date: 03/05/22 61-year-old male who presents to the emergency room on February 21, via EMS, for possible seizure. The patient has a history of chronic alcohol abuse, and chronic foot wounds. He apparently does have a history of seizure disorder, and is apparently noncompliant with his seizure medications. He apparently presented to the emergency department with acute onset of seizure, earlier on the day of admission, which was February 21. He apparently had 3 different seizure episodes within one hour. When EMS arrived, he apparently was actively seizing. They administered 5 mg of IV Versed, and the seizure stopped. The patient was apparently postictal after that. Since being in the emergency department, the patient has been improving neurologically. He was on BiPAP for a short period of time with settings of 15/5 and 60%, up until about 3:00 in the morning. Now he is on between 6-7 L of nasal oxygen. He is getting saline at keep vein open. Current vital signs include sinus tachycardia with a rate of 138, blood pressure 116/85 respiratory rate 22 and saturations 90-92%. White count 26.4, hemoglobin 13.5, hematocrit 43.6, and platelet count was normal. Most recent blood gases show pO2 71, pCO2 47, and a pH is 7.26. That was on BiPAP at 60%. Troponin was 0.030. Initial pH was 7.12. Sodium 124, potassium 4.9, chlorides 96, CO2 19, BUN 6, creatinine 0.66. Urine screen was positive f or benzodiazepines, and marijuana. Chest x-ray shows patchy airspace disease in the left hilar region, consistent with possible aspiration pneumonia. The patient is seen today 02/23/2022 in follow-up on the selective care unit. He is currently resting fairly comfortably in bed. Somewhat lethargic. He is on BiPAP 15/5 and 60% FiO2 with O2 saturations in the 90s. EEG revealed possible low amplitude sharp appearing waves in the right frontotemporal region. This may suggest underlying cortical irritability intensive for seizures. No seizures were recorded. Blood cultures positive for coag-negative staph. Urine culture negative. White count 21.1. Hemoglobin 12.4. Platelets 331. Sodium 138. Potassium 4.8. BUN 7. Creatinine 0.52. AST 39. ALT 18. He is continued on bronchodilators and Zosyn. Heparin for DVT prophylaxis. Remains in the CIWA protocol. Remains on Keppra. The patient seen today 02/24/2022 in follow-up on the selective care unit. He is currently sitting up in bed. More awake and arousable. Currently on 5 L high flow nasal cannula. He has been alternating with BiPAP 15/5 and 60% FiO2. He has normal saline at 50 MLS per hour. Maintained on Zosyn. Bronchodilators. Heparin for DVT prophylaxis. No seizure activity. Remains in CIWA protocol. Last Ativan requirement at 4 AM this morning. The cultures positive for coag- negative staph. White count 15.4. Hemoglobin 11.1. Platelets 325. Sodium 139. Potassium 3.8. BUN 9. Creatinine 0.75. The patient is seen today 02/25/2022 in follow-up on the selective care unit. He is more awake and alert today. Denies any worsening shortness of breath, cough or congestion. Currently maintaining O2 saturations in the 90s on 5 L/m per nasal cannula. He had initially been on BiPAP 5 over 5 and 60% FiO2. Chest x-ray revealed worsening scattered airspace opacities with a new right lower lobe collapse. MRI of the brain revealed right hippocampus and fungus restricted diffusion favoring sequela patient seizure. Generalized atrophy changes and mild nonspecific white matter changes secondary to small vessel ischemic disease. Moderate paranasal sinus disease. Carotid Dopplers revealed less than 50% stenosis bilaterally. Blood cultures revealed coag-negative staph. White count 11.8. Hemoglobin 11.2. Sodium 143. Potassium 3.9. BUN 12. Creatinine 0.57. He remains on DuoNeb inhalations. Antibiotics in the form of Zosyn. Heparin for DVT prophylaxis. Remains on Keppra. Normal saline at 100 ML's per hour. No seizure activity. The patient is seen today 02/26/2022 in follow-up on the selective care unit. He is currently resting comfortably in bed. Awake and alert in no acute distress. He is maintaining O2 saturations in the 90s on 5 L/m per nasal cannula. D545 at 75 ML's per hour. He is continued on bronchodilators. Continue on heparin for DVT prophylaxis. Remains on antibiotics in the form of Zosyn. Follow-up blood cultures revealing no growth. Urine culture revealed no growth. No seizure activity. The patient is seen today 02/27/2022 in follow-up on the selective care unit. He is sitting up in bed. Awake and alert in no acute distress. Currently on Bi PAP 15/5 on 40% FiO2 alternating with 5 L high flow nasal cannula. Receiving D5 W at 50 MLS per hour Follow-up blood cultures revealed no growth. Sodium 143. Potassium 4.8. Chloride 116. BUN 13. Creatinine 0.51. Glucose 103. The plan is for a barium swallow today. She remains on bronchodilators, Zosyn, heparin for DVT prophylaxis. Continue to CIWA protocol. No seizures noted. The patient is seen today 02/28/2022 in follow-up on the selective care unit. He is sitting up in bed. Awake and alert in no acute distress. Currently maintaining O2 saturations in the 90s on 2 L/m per nasal cannula. His main complaint is that of fatigue. No worsening shortness of breath, cough or conge stion. No seizure activity. He's been afebrile. Hemodynamically stable. Chest x-ray reveals moderate central vascular congestion with small to moderate right pleural effusion and tiny left pleural effusion. He has D5W at 75 mL per hour. Follow-up blood culture reveals no growth. Urine culture revealed no growth. ProBNP 18,500. Has only been in a -135 mL balance. Currently on bronchodilators. Antibiotics in the form of Zosyn. Heparin for DVT prophylaxis. On 03/01/2022, the patient is being seen for a follow-up. Remains on O2 at 2 L and has a BiPAP at the bedside. Breath sounds are quite diminished bilaterally and the patient is a chronic smoker. No chest pain. He has a congested cough. No aspiration. The patient is on Lasix and the patient was switched to oral Lasix 20 mg by mouth daily. He has a incentive spirometer. He also has a flutter valve. IV fluids are in the form of normal saline at rate of 50 mL an hour. He has a chronic smoker. He is using DuoNeb nebulized treatments and this will be switched to [id number] every 4 hours. He is on heparin subcu for DVT prophylaxis. No other significant events otherwise for now. No seizure activity. He has chronic alcoholism in his been a chronic smoker. 03/02/2022, the patient remains on 2 L of oxygen by nasal cannula. Not utilizing the BiPAP. He has a flutter valve at the bedside and the patient and incentive spirometer. He remains on bronchodilators with DuoNeb about treatments [id number]. He had an echo of the heart yesterday and the patient was found to have a ejection fraction of 30% and LV's impaired. There is also evidence of apical septal and lateral inferior wall hypokinesis. RVSP 30. Mild aortic regurgitation and mitral regurgitation is also present. No evidence of any pericardial effusion. The follow-up chest x-ray that was done today shows cardiomegaly, effusions the lung bases and persistent right lower lobe opacification. The right mid and right lower lobe opacity is unchanged. The patient remains on IV Zosyn. 03/03/2022, the patient remains on 2 L of oxygen by nasal cannula. As mentioned, he has advanced COPD and cardiomyopathy also. There was a concern of his ongoing opacity in the right middle lobe/right lower lobe which has remained unchanged based on follow-up chest x-rays. Based on that, a CAT scan of the chest was ordered yesterday. Based on the CAT scan findings, the patient has moderate sized bilateral pleural effusion with compressive atelectasis of the right lung base. There is also areas of patchy infiltrates in the upper lobes. These areas of groundglass opacities in the upper lobes. However, predominant abnormality remains the bilateral pleural effusion which is moderate in size. At the same time, is complaining of difficulties in swallowing. He has developed some oropharyngeal candidiasis that'll be treated accordingly. The risk was a 10.3 with a hemoglobin of 11.6 and the BUN is at panel with a creatinine of 0.7. He remains on bronchodilators. Remains on steroids and is going to be tapered to prednisone burst taper. Obviously, the patient will need thoracentesis to give him symptomatic relief. On 03/04/2022, the patient remains on 2 L of oxygen by nasal cannula. Still quite lethargic. As mentioned yesterday, the patient was found to have bilateral pleural effusion moderate to large in size. I offered them thoracentesis. He declined. Based on that, he was started on diuretics and the patient is currently on a negative fluid balance. His BUN is at 30 with a creatinine of 0.5. The WBC count of 10.8. Is currently on Lasix at a dose of 40 mg IV every 12 hours. 03/05 2022, the patient is feeling fine. Is still not agreeable for thoracentesis. Will continue diuretics. Chest x-ray findings of essentially unchanged and the patient has bilateral pleural effusion on pulmonary vessel congestion. Nevertheless, he is in a negative fluid balance and overall he is improving. No new complaints otherwise for now.Blood work shows a hemoglobin of 11.1, WBC count of 10.4, platelets of 366, serum bicarbs of 45, sodium is at 136, potassium needs to be replaced at 2.8. The patient remains on Lasix and the patient is receiving Lasix 40 mg IV every 12 hours. He remains on IV Zosyn. Objective - Vital Signs Vital signs: Vital Signs Temp 97.6 F 03/05/22 05:11 Pulse 62 03/05/22 05:11 Resp 20 03/05/22 05:11 BP 112/60 03/05/22 05:11 Pulse Ox 97 03/05/22 07:30 FiO2 40 02/27/22 15:56 Intake & Output 03/04/22 03/05/22 03/05/22 18:59 06:59 18:59 Intake Total 118 100 Output Total 300 2175 Balance - Intake: Intake, IV Titration 100 Amount Piperacillin-Tazobactam 3 100 .375 gm In Sodium Chloride 0.9% 100 ml @ 25 mls/hr IVPB Q8HR [facility] Rx# :[id number] Oral 118 Output: Urine 300 2175 Other: Voiding Method Urinal - Exam GENERAL EXAM: Awake, alert, 61-year-old male, sitting up in bed, on 2 L nasal cannula, comfortable in no apparent distress. HEAD: Normocephalic. EYES: Normal reaction of pupils, equal size. NOSE: Clear with pink turbinates. THROAT: No erythema or exudates. NECK: No masses, no JVD. CHEST: No chest wall deformity. LUNGS: Equal air entry with bilateral scattered rhonchi and crackles in the bases right greater than left. CVS: S1 and S2 normal with no audible murmur, regular rhythm. ABDOMEN: No hepatosplenomegaly, normal bowel sounds, no guarding or rigidity. SPINE: No scoliosis or deformity SKIN: No rashes CENTRAL NERVOUS SYSTEM: Alert, tone is normal in all 4 extremities. EXTREMITIES: Scaly patches on the bottom of the feet. There is no peripheral edema. No clubbing, no cyanosis. Peripheral pulses are intact. - Labs CBC & Chem 7: 03/05/22 06:25 03/05/22 06:25 Labs: Abnormal Lab Results - Last 24 Hours (Table) 03/04/22 03/04/22 03/04/22 Range/Units 09:38 09:38 11:48 WBC 10.8 H (3.8-10.6) k/uL RBC 3.93 L (4.30-5.90) m/uL Hgb 12.0 L (13.0-17.5) gm/dL Hct 37.6 L (39.0-53.0) % Neutrophils # 9.2 H (1.3-7.7) k/uL Lymphocytes # 0.7 L (1.0-4.8) k/uL Sodium (137-145) mmol/L Potassium 3.1 L (3.5-5.1) mmol/L Chloride 97 L (98-107) mmol/L Carbon Dioxide 38 H (22-30) mmol/L Creatinine 0.55 L (0.66-1.25) mg/dL Glucose (74-99) mg/dL POC Glucose (mg/dL) 123 H (70-110) mg/dL Calcium 7.8 L (8.4-10.2) mg/dL 03/04/22 03/04/22 03/05/22 Range/Units 16:50 19:53 06:00 WBC (3.8-10.6) k/uL RBC (4.30-5.90) m/uL Hgb (13.0-17.5) gm/dL Hct (39.0-53.0) % Neutrophils # (1.3-7.7) k/uL Lymphocytes # (1.0-4.8) k/uL Sodium (137-145) mmol/L Potassium (3.5-5.1) mmol/L Chloride (98-107) mmol/L Carbon Dioxide (22-30) mmol/L Creatinine (0.66-1.25) mg/dL Glucose (74-99) mg/dL POC Glucose (mg/dL) 175 H 268 H 184 H (70-110) mg/dL Calcium (8.4-10.2) mg/dL 03/05/22 03/05/22 Range/Units 06:25 06:25 WBC (3.8-10.6) k/uL RBC 3.69 L (4.30-5.90) m/uL Hgb 11.1 L (13.0-17.5) gm/dL Hct 34.4 L (39.0-53.0) % Neutrophils # 9.0 H (1.3-7.7) k/uL Lymphocytes # 0.7 L (1.0-4.8) k/uL Sodium 136 L (137-145) mmol/L Potassium 2.8 L (3.5-5.1) mmol/L Chloride 90 L (98-107) mmol/L Carbon Dioxide 45 H* (22-30) mmol/L Creatinine (0.66-1.25) mg/dL Glucose 152 H (74-99) mg/dL POC Glucose (mg/dL) (70-110) mg/dL Calcium 7.5 L (8.4-10.2) mg/dL Assessment and Plan Plan: Acute hypoxemic respiratory failure secondary to suspected aspiration pneumonia, with increasing right lower lobe collapse. Barium swallow from 02/27/2022 revealed no penetration or aspiration identified, currently on 2 L of oxygen by nasal cannula, chest x-ray still showing evidence of pulmonary edema with possible bilateral pleural effusion and increased infiltration of the right more than left. The patient is currently on 2 L of oxygen by nasal cannula utilizing BiPAP overnight. The patient completed a course of IV Zosyn On today's evaluation, no major change in his overall condition. The patient has bilateral pleural effusion moderate in size more so on the right and passive atelectasis of the lung base in addition to some areas of patchy groundglass pulmonary infiltrates. This is based on the CAT scan of the chest that was done yes terday. Suspect transudative effusion secondary to CHF. systolic congestive heart failure with previous echocardiogram revealing ejection fraction of 30 %, proBNP greater than 18,000, received diuretics during his course in the intensive care unit Recurrent seizure activity, and the patient noncompliant with epilepsy medications. MRI of the brain revealed right hippocampus and uncus restricted diffusion favoring sequela of patient's seizures. History of chronic tobacco use and nicotine dependence. History of hypertension. History of chronic alcohol abuse. History of marijuana use. Chronic wounds, lower extremities. Oropharyngeal candidiasis Plan: The patient continues to decline thoracentesis. I started him on diuretics and the patient is responding to the diuretics for now. Continue diuretics for now Chest x-ray findings are stable Responding to diuresis The patient declines Thoracentesis as the patient states that he's feeling well Diflucan 100 mg by mouth daily for oropharyngeal candidiasis prednisone burst taper Overall respiratory status is stable currently on 2 L of O2 nasal cannula Repeat echocardiogram showed an ejection fraction of 30% Chest x-ray from today is unchanged Continue bronchodilators Continue flutter valve, CPT to right chest We'll continue to follow
[2022-03-05 11:51] LABS: Glucose,Whole Blood 135 mg/dL (70-110)
[2022-03-05] MEDS ORDERED: DEXTROSE 50% SYRINGE 50 ML IVP PRN ×2 (12:19)
[2022-03-05] MEDS ORDERED: Magnesium Replacement Protocol 1 EACH MISC MISCELLANE PRN (12:30)
[2022-03-05] MEDS: MAGNESIUM SULFATE-D5W PMX 1 GM in DEXTROSE/WATER 1 100ML.BAG IVPB SCH ×3 (12:41→15:32)
[2022-03-05] MEDS: INSULIN ASPART (NovoLOG) 100 UNIT/ML VIAL SQ SCH ×3 (12:41→20:20)
--- NOTE | 2022-03-05 14:48 | P.PN ---
Subjective Progress Note Date: 03/05/22 Principal diagnosis: Acute hypoxemic respiratory failure Aspiration pneumonia Recurrent seizure activity 61-year-old male with a known history of seizure disorder, currently with a smoker and current alcohol abuse and currently not on any antiepileptic drugs was brought to ER by ambulance due to seizures.. Patient was also having chronic foot wounds and is on follow-up with wound care center. Patient is also noncompliant with follow-up and medications. Apparently patient had 3 episodes of seizures within an hour and has been acting differently. Patient's parents called EMS. Upon arrival to the ER patient was having leftward gaze deviation and was actively seizing. Patient was given 5 mg of IV Versed and seizure stopped. Patient was postictal. Patient is still drowsy and lethargic and unable to provide history. CT head and cervical spine showed no acute intracranial process. Nonspecific white matter changes likely secondary to chronic small vessel ischemic disease. No evidence of cervical spine fracture. Mild COPD changes with intralobular septal thickening and patchy groundglass opacities within the bilateral upper lobes concerning for infectious/infectious inflammatory process. Chest x-ray showed multifocal airspace opacities most pronounced on the left hilar region. Findings concerning for pneumonia. Foot x-ray showed no evidence of acute fracture. No osteomyelitis. Multifocal osteoarthrosis changes. EKG showed sinus tachycardia. Laboratory data showed WBC 18.6 hemoglobin 13.1 and lipase 471 2124 potassium 4.9 chloride 96 bicarb is 19 BUN 16 creatinine 0.66 and blood sugar is 2631 lactic acid 7.9 and albumin 2.9 serum alcohol level is less than 10 and influenza AB and RSV PCR and COVID-19 not detected. Patient is currently ER and requiring oxygen at 6 L via nasal cannula. 24 hour interval change 03/01/2022 Patient is seen and evaluated in follow-up on the selective care unit. Awake and alert in no acute distress; maintaining O2 saturations in the 90s on 2 L/m per nasal cannula. His main complaint is that of fatigue. No worsening shortness of breath, cough or congestion. -- Chest x-ray reveals moderate central vascular congestion with small to moderate right pleural effusion and tiny left pleural effusion. He has D5W at 75 mL per hour. - Follow-up blood culture reveals no growth. Urine culture revealed no growth. ProBNP 18,500. Patient received Lasix 40 mg IV 1; echocardiogram is recommended - Currently on bronchodilators. Antibiotics in the form of Zosyn. Heparin for DVT prophylaxis. Patient underwent radium swallow which did not reveal any aspiration -- patient was switched to oral Lasix 20 mg by mouth daily. He has a incentive spirometer. He also has a flutter valve. IV fluids are in the form of normal saline at rate of 50 mL an hour. He has a chronic smoker. He is using DuoNeb nebulized treatments and this will be switched to [id number] every 4 hours. - Pulmonary service recommending to continue with current management with furt her recommendations once echocardiogram results aren't available -- Patient has been evaluated by cardiology for tachycardia and metoprolol has been resumed at 100 mg twice a day - Patient is recommended abstinence from alcohol and tobacco use -- Possible discharge in next 24 hours once cleared by pulmonary service 24 hour interval change 03/03/2022 the patient is seen and evaluated and discussed with nursing staff; patient continues to be quite irritable and has been refusing treatment; ; psych has been consulted -- patient remains on 2 L of oxygen by nasal cannula. Patient has advanced COPD and cardiomyopathy; pulmonary on board with concerns about opacity in the right middle lobe/right lower lobe which has remained unchanged based on follow-up chest x-rays; CAT scan of the chest was ordered yesterday. -- CAT scan findings reveal patient has moderate sized bilateral pleural effusion with compressive atelectasis of the right lung base and areas of patchy infiltrates in the upper lobes. These areas of groundglass opacities in the upper lobes. However, predominant abnormality remains the bilateral pleural effusion which is moderate in size. Patient has been complaining of difficulties in swallowing. He has developed some oropharyngeal candidiasis and hasn't placed on Diflucan. The risk was a 10.3 with a hemoglobin of 11.6 and the BUN is at panel with a creatinine of 0.7. He remains on bronchodilators. Remains on steroids and is going to be tapered to prednisone burst taper. Patient was evaluated by pulmonary service and recommended thoracentesis; patient initially agreed but now is declining the procedure. 24 hour interval change 03/04/2022 the patient is seen and evaluated in room at bedside; remains on 2 L of oxygen by nasal cannula. -- the patient was found to have bilateral pleural effusion moderate to large in size. I offered them thoracentesis. He declined. Based on that, he was started on diuretics and the patient is currently on a negative fluid balance. His BUN is at 30 with a creatinine of 0.5. The discomfort of 10.8. Is currently on Lasix at a dose of 40 mg IV every 12 hours. The patient continues to decline thoracentesis; patient has been started him on diuretics and the patient is responding to the diuretics for now. Diflucan 100 mg by mouth daily for oropharyngeal candidiasis -- prednisone burst taper Overall respiratory status is stable currently on 2 L of O2 nasal cannula -Repeat echocardiogram showed an ejection fraction of 30% Continue bronchodilators 24 hour interval change 03/05/2022 the patient is seen and evaluated in room at bedside with RN present in the room; patient reports feeling fine. Patient is more awake and alert oriented this morning -- still not agreeable for thoracentesis; I had detailed discussion with the yonatan gonzalez regarding benefits of thoracentesis including symptomatic relief and further testing on pleural fluid; patient is somewhat agreeable but will think about it. -- Will continue diuretics. - Chest x-ray findings of essentially unchanged and the patient has bilateral pleural effusion on pulmonary vessel congestion. Nevertheless, he is in a negative fluid balance and overall he is improving. No new complaints otherwise for now. -- Blood work shows a hemoglobin of 11.1, WBC count of 10.4, platelets of 366, serum bicarbs of 45, sodium is at 136, potassium needs to be replaced at 2.8. The patient remains on Lasix and the patient is receiving Lasix 40 mg IV every 12 hours. He remains on IV Zosyn. Objective - Vital Signs Vital signs: Vital Signs Temp 97.7 F 03/05/22 08:00 Pulse 99 03/05/22 08:00 Resp 18 03/05/22 08:00 BP 148/70 03/05/22 08:00 Pulse Ox 95 03/05/22 08:00 FiO2 40 02/27/22 15:56 Intake & Output 03/04/22 03/05/22 03/05/22 18:59 06:59 18:59 Intake Total 118 100 Output Total 300 2175 200 Balance - Intake: Intake, IV Titration 100 Amount Piperacillin-Tazobactam 3 100 .375 gm In Sodium Chloride 0.9% 100 ml @ 25 mls/hr IVPB Q8HR [facility] Rx# :[id number] Oral 118 Output: Urine 300 2175 200 Other: Voiding Method Urinal Urinal - Exam GENERAL: The patient is alert and oriented x2, not in any acute distress. Well developed, well nourished. on 5l nasal cannula. HEENT: Pupils are round and equally reacting to light. EOMI. No scleral icterus. No conjunctival pallor. Normocephalic, atraumatic. No pharyngeal erythema. No thyromegaly. CARDIOVASCULAR: S1 and S2 present. No murmurs, rubs, or gallops. PULMONARY: Coarse scattered rhonchi ABDOMEN: Soft, nontender, nondistended, normoactive bowel sounds. No palpable organomegaly. MUSCULOSKELETAL: No joint swelling or deformity. EXTREMITIES: No cyanosis, clubbing, or pedal edema. NEUROLOGICAL: Gross neurological examination did not reveal any focal deficits. SKIN: No rashes. - Labs CBC & Chem 7: 03/05/22 06:25 03/05/22 06:25 Labs: Abnormal Lab Results - Last 24 Hours (Table) 03/04/22 03/04/22 03/04/22 Range/Units 09:38 09:38 11:48 WBC 10.8 H (3.8-10.6) k/uL RBC 3.93 L (4.30-5.90) m/uL Hgb 12.0 L (13.0-17.5) gm/dL Hct 37.6 L (39.0-53.0) % Neutrophils # 9.2 H (1.3-7.7) k/uL Lymphocytes # 0.7 L (1.0-4.8) k/uL Sodium (137-145) mmol/L Potassium 3.1 L (3.5-5.1) mmol/L Chloride 97 L (98-107) mmol/L Carbon Dioxide 38 H (22-30) mmol/L Creatinine 0.55 L (0.66-1.25) mg/dL Glucose (74-99) mg/dL POC Glucose (mg/dL) 123 H (70-110) mg/dL Calcium 7.8 L (8.4-10.2) mg/dL 03/04/22 03/04/22 03/05/22 Range/Units 16:50 19:53 06:00 WBC (3.8-10.6) k/uL RBC (4.30-5.90) m/uL Hgb (13.0-17.5) gm/dL Hct (39.0-53.0) % Neutrophils # (1.3-7.7) k/uL Lymphocytes # (1.0-4.8) k/uL Sodium (137-145) mmol/L Potassium (3.5-5.1) mmol/L Chloride (98-107) mmol/L Carbon Dioxide (22-30) mmol/L Creatinine (0.66-1.25) mg/dL Glucose (74-99) mg/dL POC Glucose (mg/dL) 175 H 268 H 184 H (70-110) mg/dL Calcium (8.4-10.2) mg/dL 03/05/22 03/05/22 Range/Units 06:25 06:25 WBC (3.8-10.6) k/uL RBC 3.69 L (4.30-5.90) m/uL Hgb 11.1 L (13.0-17.5) gm/dL Hct 34.4 L (39.0-53.0) % Neutrophils # 9.0 H (1.3-7.7) k/uL Lymphocytes # 0.7 L (1.0-4.8) k/uL Sodium 136 L (137-145) mmol/L Potassium 2.8 L (3.5-5.1) mmol/L Chloride 90 L (98-107) mmol/L Carbon Dioxide 45 H* (22-30) mmol/L Creatinine (0.66-1.25) mg/dL Glucose 152 H (74-99) mg/dL POC Glucose (mg/dL) (70-110) mg/dL Calcium 7.5 L (8.4-10.2) mg/dL Assessment and Plan Assessment: Acute Seizure disorder with hx of recurrent seizures. Noncompliant with medications. Bilateral upper lobe pneumonia concerning for aspiration pneumonia Sepsis secondary above Severe lactic acidosis 7.9 on admission Acute hypoxemic respiratory failure was on BIPAP currently requiring 5L nasal cannula Hypovolemic hyponatremia Alcohol abuse History of marijuana use Ongoing nicotine addiction Coagulase-negative staph aureus bacteremia likely contamination Hypertension Sinus tachycardia Chronic lower extremity skin changes/wounds. DVT prophylaxis Heparin subcu GI prophylaxis Full Code Plan: Currently maintained on oxygen support 5L nasal cannula Patient was started on Keppra 1000 mg twice daily and continue with neurochecks and seizure and fall precautions. IV Ativan as needed for seizures. Continues on CIWA, monitor for alcohol withdrawal symptoms. Continue thiamine and multivitamins. Patient was given 1 dose of vancomycin. Continue with Zosyn and follow-up culture reports. Continue with NPO pending further recommendations from speech therapy possible barium swallow Maintain aspiration precautions with head of bed up 30* at all times. Continue IV fluids, IV lopressor Neurology, pulmonary and ID is on board. PT and OT consultation in place.
[2022-03-05 15:38] LABS: Magnesium 2.1 mg/dL (1.6-2.3); Potassium 2.8 mmol/L (3.5-5.1)
[2022-03-05 16:38] LABS: Glucose,Whole Blood 193 mg/dL (70-110)
[2022-03-05 20:06] LABS: Glucose,Whole Blood 232 mg/dL (70-110)
--- NOTE | 2022-03-05 23:17 | P.PN ---
Progress Note - Text Progress Note Date: 03/05/22 Psychiatry consult follow-up note: Interval history: Patient was seen resting in his bed with lights on, and was directable and agreeable to speak with internal communications writer. Mentation is improved today and he is alert, and oriented to person, place, month/day/year. He denied depressed mood, does admit to some anxiety and fair sleep, however he declines psychotropic medications. At this time patient denies any suicidal or homicidal ideation, intent or plan. Denies any auditory or visual hallucinations. Patient denies any side effects from the medications and has been compliant with meds. No agitation observed or reported today. He has not required any PRN Haldol. In regards to alcohol use, he was educated to abstain from mood altering substances including alcohol and he agrees. He states he does not plan to drink ever again. We discussed substance abuse treatment options however he believes he can do it on his own. Substance abuse treatment was encouraged to maximize his success at abstinence. He has done AA in the past. IMPRESSIONS: Delirium, multifactorial (multiple medical comorbidities) - resolving Alcohol use disorder Alcohol withdrawal - resolved. PLAN: -At this time patient DOES NOT meet criteria for inpatient psychiatric admission. -Patient DOES NOT have decision making capacity at this time and is unable to reason through and communicate/appreciate the risks, benefits and alternatives to treatment. -Delirium precautions recommended with patient including - avoiding use of narcotics and WEIGHT YARDAGE CHECKER sedatives, limit anticholinergic medications when possible, frequent re-orientation, minimize use of restraints, open window shades during the day and close them at night. -Would recommend the following medication changes/additions: Haldol 0.5 mg IV Q4H PRN for agitation/psychosis. May increase to Haldol 1 mg IV Q4H PRN if unsatisfactory response with 0.5 mg dose. Discontinue Ativan per CIWA due to delirium and time since last drink. -Continue to reassess safety and initiate 1:1 sitter if safety concerns arise. -roller shop utility worker to provide patient with outpatient mental health/psychiatry resources for appropriate follow up upon discharge. -Net Developer [employer] spoke with patient about substance abuse and the harmful effects on medical and mental health, patient verbally understood and agreed. -roller shop utility worker to provide patient substance use treatment resources including AA meetings in the community. -roller shop utility worker to provide patient with access line number to call for inpatient substance rehab -Psychiatry will sign off. -Please contact with any questions.
[2022-03-06 06:21] LABS: Glucose,Whole Blood 144 mg/dL (70-110)
[2022-03-06] MEDS: INSULIN ASPART (NovoLOG) 100 UNIT/ML VIAL SQ SCH ×4 (06:29→20:16)
[2022-03-06] MEDS: methylPREDNISolone SOD SUCCI 125 MG/2 ML VIAL IV SCH ×4 (06:31→23:49)
[2022-03-06 06:37] LABS: Basophils % (A) 0 %; Eosinophils % (A) 0 %; HCT 32.7 % (39.0-53.0); HGB 10.6 gm/dL (13.0-17.5); Hypochromasia Slight; Lymphocytes # (A) 0.5 k/uL (1.0-4.8); Lymphocytes % (A) 6 %; MCH 29.5 pg (25.0-35.0); MCHC 32.5 g/dL (31.0-37.0); MCV 90.9 fL (80.0-100.0); Mean Platelet Volume 9.4; Monocytes # (A) 0.5 k/uL (0-1.0); Monocytes % (A) 5 %; Neutrophils # (A) 7.9 k/uL (1.3-7.7); Neutrophils % (A) 88 %; Platelet Count 341 k/uL (150-450); RDW 13.7 % (11.5-15.5)
[2022-03-06 06:56] LABS: African American GFR (CKD) >90 (>60 ml/min/1.73 sqM); Blood Urea Nitrogen 14 mg/dL (9-20); Chloride 84 mmol/L (98-107); Glucose 133 mg/dL (74-99); Non-African American GFR(CKD) >90 (>60 ml/min/1.73 sqM); Sodium 132 mmol/L (137-145)
[2022-03-06 07:02] LABS: Anion Gap 2 mmol/L
[2022-03-06 07:04] LABS: Potassium 2.6 mmol/L (3.5-5.1)
[2022-03-06 07:05] LABS: Carbon Dioxide 46 mmol/L (22-30)
--- NOTE | 2022-03-06 07:23 | P.PN ---
Subjective Progress Note Date: 03/05/22 Principal diagnosis: Aspiration pneumonia Patient is a 61-year-old male with a past medical history significant for chronic on both abuse seizure disorder noncompliant with his seizure medication patient was brought into the ER with acute onset of seizure , patient did have elevated white count and evidence of multifocal infiltrating mostly in the left perihilar region concerning for possible aspiration pneumonia. On today's evaluation that is 03/05/2022, the patient remains to be afebrile, the patient is breathing comfortably on 2 L nasal cannula , the patient denies any chest pain , the patient did have occasional dry cough, denies any nausea no vomiting no choking on the food, No abdominal pain no diarrhea Objective - Vital Signs Vital signs: Vital Signs Temp 98.1 F 03/05/22 16:00 Pulse 86 03/05/22 16:06 Resp 16 03/05/22 16:00 BP 123/67 03/05/22 16:00 Pulse Ox 97 03/05/22 16:06 FiO2 40 02/27/22 15:56 Intake & Output 03/04/22 03/05/22 03/05/22 18:59 06:59 18:59 Intake Total 118 100 236 Output Total 300 2175 500 Balance -924 -2143 -825 Intake: Intake, IV Titration 100 Amount Piperacillin-Tazobactam 3 100 .375 gm In Sodium Chloride 0.9% 100 ml @ 25 mls/hr IVPB Q8HR [facility] Rx# :[id number] Oral 118 236 Output: Urine 300 2175 500 Other: Voiding Method Urinal Urinal - Exam GENERAL DESCRIPTION: Middle-aged male lying in bed in no distress RESPIRATORY SYSTEM: Unlabored breathing , decreased breath sounds at bases HEART: S1 S2 regular rate and rhythm , ABDOMEN: Soft , no tenderness EXTREMITIES: No edema feet - Labs CBC & Chem 7: 03/06/22 06:24 03/06/22 06:24 Labs: Abnormal Lab Results - Last 24 Hours (Table) 03/04/22 03/05/22 03/05/22 Range/Units 19:53 06:00 06:25 RBC 3.69 L (4.30-5.90) m/uL Hgb 11.1 L (13.0-17.5) gm/dL Hct 34.4 L (39.0-53.0) % Neutrophils # 9.0 H (1.3-7.7) k/uL Lymphocytes # 0.7 L (1.0-4.8) k/uL Sodium (137-145) mmol/L Potassium (3.5-5.1) mmol/L Chloride (98-107) mmol/L Carbon Dioxide (22-30) mmol/L Glucose (74-99) mg/dL POC Glucose (mg/dL) 268 H 184 H (70-110) mg/dL Calcium (8.4-10.2) mg/dL Magnesium (1.6-2.3) mg/dL 03/05/22 03/05/22 03/05/22 Range/Units 06:25 06:25 11:50 RBC (4.30-5.90) m/uL Hgb (13.0-17.5) gm/dL Hct (39.0-53.0) % Neutrophils # (1.3-7.7) k/uL Lymphocytes # (1.0-4.8) k/uL Sodium 136 L (137-145) mmol/L Potassium 2.8 L (3.5-5.1) mmol/L Chloride 90 L (98-107) mmol/L Carbon Dioxide 45 H* (22-30) mmol/L Glucose 152 H (74-99) mg/dL POC Glucose (mg/dL) 135 H (70-110) mg/dL Calcium 7.5 L (8.4-10.2) mg/dL Magnesium 1.4 L (1.6-2.3) mg/dL 03/05/22 03/05/22 Range/Units 14:59 16:35 RBC (4.30-5.90) m/uL Hgb (13.0-17.5) gm/dL Hct (39.0-53.0) % Neutrophils # (1.3-7.7) k/uL Lymphocytes # (1.0-4.8) k/uL Sodium (137-145) mmol/L Potassium 2.8 L (3.5-5.1) mmol/L Chloride (98-107) mmol/L Carbon Dioxide (22-30) mmol/L Glucose (74-99) mg/dL POC Glucose (mg/dL) 193 H (70-110) mg/dL Calcium (8.4-10.2) mg/dL Magnesium (1.6-2.3) mg/dL Assessment and Plan (1) Pneumonia Current Visit: Yes Status: Acute Code(s): J18.9 - PNEUMONIA, UNSPECIFIED ORGANISM SNOMED Code(s): 572306076 Plan: 1patient presented to hospital with active seizures in this patient now with evidence of multifocal pneumonia mostly left perihilar region did have elevated vital concerning for pneumonia of aspiration etiology. 2positive blood culture finalized as staph epi likely skin contamination blood cultures repeated 02/25/2022 so far negative. 3patient had shown clinical improvement and the patient white count is normal, patient currently being treated with the Zosyn along with aspiration precaution and plan to finish therapy with oral antibiotics Time with Patient: Less than 30
[2022-03-06] MEDS: HEPARIN SODIUM,PORCINE/PF 5,000 UNIT/0.5 ML SYRINGE SQ SCH ×3 (07:49→23:11)
[2022-03-06] MEDS: ASPIRIN 81 MG PO SCH (07:50)
[2022-03-06] MEDS: FLUCONAZOLE 100 MG TAB PO SCH (07:50)
[2022-03-06] MEDS: FAMOTIDINE 20 MG TAB PO SCH (07:50)
[2022-03-06] MEDS: PIPERACILLIN-TAZOBACTAM 3.375 GM in SODIUM CHLORIDE 0.9% 100 ML IVPB SCH ×3 (07:50→23:49)
[2022-03-06] MEDS: FUROSEMIDE 10 MG/ML 4 ML VIAL IV SCH ×2 (07:50→20:16)
[2022-03-06] MEDS: THIAMINE 100 MG TAB PO SCH (07:50)
[2022-03-06] MEDS: TAMSULOSIN 0.4 MG CAP.ER.24H PO SCH (07:50)
[2022-03-06] MEDS: POTASSIUM CHLORIDE ER 20 MEQ TAB.ER PO SCH ×4 (07:50→17:01)
[2022-03-06] MEDS: levETIRAcetam 500 MG TAB PO SCH ×2 (07:50→20:15)
[2022-03-06] MEDS: METOPROLOL TARTRATE 50 MG TAB PO SCH ×2 (07:51→20:16)
[2022-03-06] MEDS ORDERED: POTASSIUM CHLORIDE ER 20 MEQ TAB.ER PO SCH (08:00)
[2022-03-06] MEDS: IPRATROPIUM-ALBUTEROL 3 ML NEB INHALATION SCH ×4 (09:11→20:08)
[2022-03-06] MEDS ORDERED: Potassium Replacement Protocol 1 EACH MISC MISCELLANE PRN (10:20)
--- NOTE | 2022-03-06 10:28 | P.PN ---
Subjective From the records: 61-year-old male with a known history of seizure disorder, currently with a smoker and current alcohol abuse and currently not on any antiepileptic drugs was brought to ER by ambulance due to seizures.. Patient was also having c hronic foot wounds and is on follow-up with wound care center. Patient is also noncompliant with follow-up and medications. Apparently patient had 3 episodes of seizures within an hour and has been acting differently. Patient's parents called EMS. Upon arrival to the ER patient was having leftward gaze deviation and was actively seizing. Patient was given 5 mg of IV Versed and seizure stopped. Patient was postictal. Patient is still drowsy and lethargic and unable to provide history. CT head and cervical spine showed no acute intracranial process. Nonspecific white matter changes likely secondary to chronic small vessel ischemic disease. No evidence of cervical spine fracture. Mild COPD changes with intralobular septal thickening and patchy groundglass opacities within the bilateral upper lobes concerning for infectious/infectious inflammatory process. Chest x-ray showed multifocal airspace opacities most pronounced on the left hilar region. Findings concerning for pneumonia. Foot x-ray showed no evidence of acute fracture. No osteomyelitis. Multifocal osteoarthrosis changes. EKG showed sinus tachycardia. Laboratory data showed WBC 18.6 hemoglobin 13.1 and lipase 471 2124 potassium 4.9 chloride 96 bicarb is 19 BUN 16 creatinine 0.66 and blood sugar is 2631 lactic acid 7.9 and albumin 2.9 serum alcohol level is less than 10 and influenza AB and RSV PCR and COVID-19 not detected. Patient is currently ER and requiring oxygen at 6 L via nasal cannula. 24 hour interval change 03/01/2022 Patient is seen and evaluated in follow-up on the selective care unit. Awake and alert in no acute distress; maintaining O2 saturations in the 90s on 2 L/m per nasal cannula. His main complaint is that of fatigue. No worsening shortness of breath, cough or congestion. -- Chest x-ray reveals moderate central vascular congestion with small to modera te right pleural effusion and tiny left pleural effusion. He has D5W at 75 mL per hour. - Follow-up blood culture reveals no growth. Urine culture revealed no growth. ProBNP 18,500. Patient received Lasix 40 mg IV 1; echocardiogram is recommended - Currently on bronchodilators. Antibiotics in the form of Zosyn. Heparin for DVT prophylaxis. Patient underwent radium swallow which did not reveal any aspiration -- patient was switched to oral Lasix 20 mg by mouth daily. He has a incentive spirometer. He also has a flutter valve. IV fluids are in the form of normal saline at rate of 50 mL an hour. He has a chronic smoker. He is using DuoNeb nebulized treatments and this will be switched to [id number] every 4 hours. - Pulmonary service recommending to continue with current management with further recommendations once echocardiogram results aren't available -- Patient has been evaluated by cardiology for tachycardia and metoprolol has been resumed at 100 mg twice a day - Patient is recommended abstinence from alcohol and tobacco use -- Possible discharge in next 24 hours once cleared by pulmonary service 03/02/2022 Patient is a pleasant 61 years old male with multiple medical problems was presented initially with breakthrough seizure, patient has insight. He denies any specific symptoms. Patient has been followed by neurologist and [facility], MRI of the brain showing sequelae of seizures with neurological deficits and suspicious for CVA felt less likely by neurologist. Lumbar puncture still pending. Other than that patient reports improvement, he is eating better, no respiratory symptoms, his weakness is better. Calle catheter still in place which was placed on 02/25. Patient denies any depression. Resume the care of the patient 03/06/2022 Patient awake sitting up in bed, mildly tachypneic, mildly confused Patient denies chest pain or significant dyspnea. He still feels weak. He tolerates that well. No Calle catheter. He is saturating 95% on 2 L oxygen via nasal cannula I talked to him about going to rehab and he looks agreeable for short-term. Patient remains on IV Lasix, IV Solu-Medrol and Zosyn which can't be switched to oral antibiotics upon discharge Hypokalemia would be replaced per protocol We will follow-up with the neurologist if any further recommendation, discussed with the staff Objective - Vital Signs Vital signs: Vital Signs Temp 98.0 F 03/06/22 07:38 Pulse 62 03/06/22 09:20 Resp 18 03/06/22 07:38 BP 112/67 03/06/22 07:38 Pulse Ox 95 03/06/22 09:12 FiO2 40 02/27/22 15:56 Intake & Output 03/05/22 03/06/22 03/06/22 18:59 06:59 18:59 Intake Total 236 118 Output Total 500 875 600 Balance -469 -078 -727 Intake: Oral 236 118 Output: Urine 500 875 600 Other: Voiding Method Urinal Urinal Urinal - Exam -GENERAL: The patient is alert and oriented x3, not in any acute distress. Well developed, well nourished. Generally weak HEENT: Pupils are round and equally reacting to light. EOMI. No scleral icterus. No conjunctival pallor. Normocephalic, atraumatic. No pharyngeal erythema. No thyromegaly. CARDIOVASCULAR: S1 and S2 present. No murmurs, rubs, or gallops. PULMONARY: Chest is clear to auscultation, no wheezing or crackles. ABDOMEN: Soft, nontender, nondistended, normoactive bowel sounds. No palpable organomegaly. MUSCULOSKELETAL: No joint swelling or deformity. EXTREMITIES: No cyanosis, clubbing, or pedal edema. NEUROLOGICAL: Gross neurological examination did not reveal any focal deficits. SKIN: No rashes. no petechiae. - Labs CBC & Chem 7: 03/06/22 06:24 03/06/22 06:24 Labs: Abnormal Lab Results - Last 24 Hours (Table) 03/05/22 03/05/22 03/05/22 Range/Units 06:25 11:50 14:59 RBC (4.30-5.90) m/uL Hgb (13.0-17.5) gm/dL Hct (39.0-53.0) % Neutrophils # (1.3-7.7) k/uL Lymphocytes # (1.0-4.8) k/uL Sodium (137-145) mmol/L Potassium 2.8 L (3.5-5.1) mmol/L Chloride (98-107) mmol/L Carbon Dioxide (22-30) mmol/L Creatinine (0.66-1.25) mg/dL Glucose (74-99) mg/dL POC Glucose (mg/dL) 135 H (70-110) mg/dL Calcium (8.4-10.2) mg/dL Magnesium 1.4 L (1.6-2.3) mg/dL 03/05/22 03/05/22 03/05/22 Range/Units 16:35 18:19 20:04 RBC (4.30-5.90) m/uL Hgb (13.0-17.5) gm/dL Hct (39.0-53.0) % Neutrophils # (1.3-7.7) k/uL Lymphocytes # (1.0-4.8) k/uL Sodium (137-145) mmol/L Potassium 3.2 L (3.5-5.1) mmol/L Chloride (98-107) mmol/L Carbon Dioxide (22-30) mmol/L Creatinine (0.66-1.25) mg/dL Glucose (74-99) mg/dL POC Glucose (mg/dL) 193 H 232 H (70-110) mg/dL Calcium (8.4-10.2) mg/dL Magnesium (1.6-2.3) mg/dL 03/06/22 03/06/22 03/06/22 Range/Units 06:19 06:24 06:24 RBC 3.60 L (4.30-5.90) m/uL Hgb 10.6 L (13.0-17.5) gm/dL Hct 32.7 L (39.0-53.0) % Neutrophils # 7.9 H (1.3-7.7) k/uL Lymphocytes # 0.5 L (1.0-4.8) k/uL Sodium 132 L (137-145) mmol/L Potassium 2.6 L* (3.5-5.1) mmol/L Chloride 84 L (98-107) mmol/L Carbon Dioxide 46 H* (22-30) mmol/L Creatinine 0.58 L (0.66-1.25) mg/dL Glucose 133 H (74-99) mg/dL POC Glucose (mg/dL) 144 H (70-110) mg/dL Calcium 7.0 L (8.4-10.2) mg/dL Magnesium (1.6-2.3) mg/dL Assessment and Plan Assessment: Acute Seizure disorder with hx of recurrent seizures. Noncompliant with medications. Bilateral upper lobe pneumonia concerning for aspiration pneumonia Sepsis secondary above Severe lactic acidosis 7.9 on admission, resolved Acute hypoxemic respiratory failure was on BIPAP currently requiring 2L nasal cannula hyponatremia Alcohol abuse History of marijuana use Ongoing nicotine addiction Coagulase-negative staph aureus bacteremia likely contamination Hypertension Sinus tachycardia Chronic lower extremity skin changes/wounds. Plan: off iv fluids Neurologist service on the case Neurologist recommended short-term follow-up MRI Continue with Keppra Continue with blood pressure medication Continue with Lasix. Continue Zosyn Cardiology team, infectious disease and pulmonary team already sent of the case. Labs and medication were reviewed.. Continue same treatment. Continue with symptomatic treatment. Resume home medication. Monitor labs and vitals. DVT and GI prophylaxis. Further recommendations as per clinical course of the patient DVT prophylaxis: Subcutaneous heparin GI Prophylaxis: Pepcid PT/OT: Pending Prognosis is guarded
[2022-03-06 11:26] LABS: Glucose,Whole Blood 199 mg/dL (70-110)
[2022-03-06 11:26] LABS: African American GFR (CKD) >90 (>60 ml/min/1.73 sqM); Blood Urea Nitrogen 14 mg/dL (9-20); Calcium 7.5 mg/dL (8.4-10.2); Chloride 85 mmol/L (98-107); Glucose 187 mg/dL (74-99); Non-African American GFR(CKD) >90 (>60 ml/min/1.73 sqM); Sodium 132 mmol/L (137-145)
[2022-03-06 11:32] LABS: Anion Gap 4 mmol/L
--- NOTE | 2022-03-06 11:34 | P.PN ---
Subjective Progress Note Date: 03/06/22 61-year-old male who presents to the emergency room on February 21, via EMS, for possible seizure. The patient has a history of chronic alcohol abuse, and chronic foot wounds. He apparently does have a history of seizure disorder, and is apparently noncompliant with his seizure medications. He apparently presented to the emergency department with acute onset of seizure, earlier on the day of admission, which was February 21. He apparently had 3 different seizure episodes within one hour. When EMS arrived, he apparently was actively seizing. They administered 5 mg of IV Versed, and the seizure stopped. The patient was apparently postictal after that. Since being in the emergency department, the patient has been improving neurologically. He was on BiPAP for a short period of time with settings of 15/5 and 60%, up until about 3:00 in the morning. Now he is on between 6-7 L of nasal oxygen. He is getting saline at keep vein open. Current vital signs include sinus tachycardia with a rate of 138, blood pressure 116/85 respiratory rate 22 and saturations 90-92%. White count 26.4, hemoglobin 13.5, hematocrit 43.6, and platelet count was normal. Most recent blood gases show pO2 71, pCO2 47, and a pH is 7.26. That was on BiPAP at 60%. Troponin was 0.030. Initial pH was 7.12. Sodium 124, potassium 4.9, chlorides 96, CO2 19, BUN 6, creatinine 0.66. Urine screen was positive f or benzodiazepines, and marijuana. Chest x-ray shows patchy airspace disease in the left hilar region, consistent with possible aspiration pneumonia. The patient is seen today 02/23/2022 in follow-up on the selective care unit. He is currently resting fairly comfortably in bed. Somewhat lethargic. He is on BiPAP 15/5 and 60% FiO2 with O2 saturations in the 90s. EEG revealed possible low amplitude sharp appearing waves in the right frontotemporal region. This may suggest underlying cortical irritability intensive for seizures. No seizures were recorded. Blood cultures positive for coag-negative staph. Urine culture negative. White count 21.1. Hemoglobin 12.4. Platelets 331. Sodium 138. Potassium 4.8. BUN 7. Creatinine 0.52. AST 39. ALT 18. He is continued on bronchodilators and Zosyn. Heparin for DVT prophylaxis. Remains in the CIWA protocol. Remains on Keppra. The patient seen today 02/24/2022 in follow-up on the selective care unit. He is currently sitting up in bed. More awake and arousable. Currently on 5 L high flow nasal cannula. He has been alternating with BiPAP 15/5 and 60% FiO2. He has normal saline at 50 MLS per hour. Maintained on Zosyn. Bronchodilators. Heparin for DVT prophylaxis. No seizure activity. Remains in CIWA protocol. Last Ativan requirement at 4 AM this morning. The cultures positive for coag- negative staph. White count 15.4. Hemoglobin 11.1. Platelets 325. Sodium 139. Potassium 3.8. BUN 9. Creatinine 0.75. The patient is seen today 02/25/2022 in follow-up on the selective care unit. He is more awake and alert today. Denies any worsening shortness of breath, cough or congestion. Currently maintaining O2 saturations in the 90s on 5 L/m per nasal cannula. He had initially been on BiPAP 5 over 5 and 60% FiO2. Chest x-ray revealed worsening scattered airspace opacities with a new right lower lobe collapse. MRI of the brain revealed right hippocampus and fungus restricted diffusion favoring sequela patient seizure. Generalized atrophy changes and mild nonspecific white matter changes secondary to small vessel ischemic disease. Moderate paranasal sinus disease. Carotid Dopplers revealed less than 50% stenosis bilaterally. Blood cultures revealed coag-negative staph. White count 11.8. Hemoglobin 11.2. Sodium 143. Potassium 3.9. BUN 12. Creatinine 0.57. He remains on DuoNeb inhalations. Antibiotics in the form of Zosyn. Heparin for DVT prophylaxis. Remains on Keppra. Normal saline at 100 ML's per hour. No seizure activity. The patient is seen today 02/26/2022 in follow-up on the selective care unit. He is currently resting comfortably in bed. Awake and alert in no acute distress. He is maintaining O2 saturations in the 90s on 5 L/m per nasal cannula. D545 at 75 ML's per hour. He is continued on bronchodilators. Continue on heparin for DVT prophylaxis. Remains on antibiotics in the form of Zosyn. Follow-up blood cultures revealing no growth. Urine culture revealed no growth. No seizure activity. The patient is seen today 02/27/2022 in follow-up on the selective care unit. He is sitting up in bed. Awake and alert in no acute distress. Currently on Bi PAP 15/5 on 40% FiO2 alternating with 5 L high flow nasal cannula. Receiving D5 W at 50 MLS per hour Follow-up blood cultures revealed no growth. Sodium 143. Potassium 4.8. Chloride 116. BUN 13. Creatinine 0.51. Glucose 103. The plan is for a barium swallow today. She remains on bronchodilators, Zosyn, heparin for DVT prophylaxis. Continue to CIWA protocol. No seizures noted. The patient is seen today 02/28/2022 in follow-up on the selective care unit. He is sitting up in bed. Awake and alert in no acute distress. Currently maintaining O2 saturations in the 90s on 2 L/m per nasal cannula. His main complaint is that of fatigue. No worsening shortness of breath, cough or conge stion. No seizure activity. He's been afebrile. Hemodynamically stable. Chest x-ray reveals moderate central vascular congestion with small to moderate right pleural effusion and tiny left pleural effusion. He has D5W at 75 mL per hour. Follow-up blood culture reveals no growth. Urine culture revealed no growth. ProBNP 18,500. Has only been in a -135 mL balance. Currently on bronchodilators. Antibiotics in the form of Zosyn. Heparin for DVT prophylaxis. On 03/01/2022, the patient is being seen for a follow-up. Remains on O2 at 2 L and has a BiPAP at the bedside. Breath sounds are quite diminished bilaterally and the patient is a chronic smoker. No chest pain. He has a congested cough. No aspiration. The patient is on Lasix and the patient was switched to oral Lasix 20 mg by mouth daily. He has a incentive spirometer. He also has a flutter valve. IV fluids are in the form of normal saline at rate of 50 mL an hour. He has a chronic smoker. He is using DuoNeb nebulized treatments and this will be switched to [id number] every 4 hours. He is on heparin subcu for DVT prophylaxis. No other significant events otherwise for now. No seizure activity. He has chronic alcoholism in his been a chronic smoker. 03/02/2022, the patient remains on 2 L of oxygen by nasal cannula. Not utilizing the BiPAP. He has a flutter valve at the bedside and the patient and incentive spirometer. He remains on bronchodilators with DuoNeb about treatments [id number]. He had an echo of the heart yesterday and the patient was found to have a ejection fraction of 30% and LV's impaired. There is also evidence of apical septal and lateral inferior wall hypokinesis. RVSP 30. Mild aortic regurgitation and mitral regurgitation is also present. No evidence of any pericardial effusion. The follow-up chest x-ray that was done today shows cardiomegaly, effusions the lung bases and persistent right lower lobe opacification. The right mid and right lower lobe opacity is unchanged. The patient remains on IV Zosyn. 03/03/2022, the patient remains on 2 L of oxygen by nasal cannula. As mentioned, he has advanced COPD and cardiomyopathy also. There was a concern of his ongoing opacity in the right middle lobe/right lower lobe which has remained unchanged based on follow-up chest x-rays. Based on that, a CAT scan of the chest was ordered yesterday. Based on the CAT scan findings, the patient has moderate sized bilateral pleural effusion with compressive atelectasis of the right lung base. There is also areas of patchy infiltrates in the upper lobes. These areas of groundglass opacities in the upper lobes. However, predominant abnormality remains the bilateral pleural effusion which is moderate in size. At the same time, is complaining of difficulties in swallowing. He has developed some oropharyngeal candidiasis that'll be treated accordingly. The risk was a 10.3 with a hemoglobin of 11.6 and the BUN is at panel with a creatinine of 0.7. He remains on bronchodilators. Remains on steroids and is going to be tapered to prednisone burst taper. Obviously, the patient will need thoracentesis to give him symptomatic relief. On 03/04/2022, the patient remains on 2 L of oxygen by nasal cannula. Still quite lethargic. As mentioned yesterday, the patient was found to have bilateral pleural effusion moderate to large in size. I offered them thoracentesis. He declined. Based on that, he was started on diuretics and the patient is currently on a negative fluid balance. His BUN is at 30 with a creatinine of 0.5. The WBC count of 10.8. Is currently on Lasix at a dose of 40 mg IV every 12 hours. 03/05 2022, the patient is feeling fine. Is still not agreeable for thoracentesis. Will continue diuretics. Chest x-ray findings of essentially unchanged and the patient has bilateral pleural effusion on pulmonary vessel congestion. Nevertheless, he is in a negative fluid balance and overall he is improving. No new complaints otherwise for now.Blood work shows a hemoglobin of 11.1, WBC count of 10.4, platelets of 366, serum bicarbs of 45, sodium is at 136, potassium needs to be replaced at 2.8. The patient remains on Lasix and the patient is receiving Lasix 40 mg IV every 12 hours. He remains on IV Zosyn. The patient is seen today 03/06/2022 in follow-up on the selective care unit. He is currently sitting up in bed. Awake and alert in no acute distress. Maintaining good O2 saturations in the mid 90s on 2 L/m per nasal cannula. Afebrile. Hemodynamically stable. Recent chest x-ray reveals right lower lung airspace opacities. Some blunting of the left costophrenic angles. No significant change. Evidence of COPD. Follow-up will cultures revealed no growth. Urine culture revealed no growth. White count 9.0. Hemoglobin 10.6. Sodium 132. Potassium 2.6. Chloride 84. Bicarb 46. BUN 14. Creatinine 0.58. Glucose 133. Potassium is being replaced. Continued on bronchodilators, IV Solu-Medrol, Zosyn. Heparin for DVT prophylaxis. Continues on IV Lasix 40 mg every 12 hours. Currently in a -2.2 L balance. Objective - Vital Signs Vital signs: Vital Signs Temp 98.0 F 03/06/22 07:38 Pulse 62 03/06/22 09:20 Resp 18 03/06/22 07:38 BP 112/67 03/06/22 07:38 Pulse Ox 95 03/06/22 09:12 FiO2 40 02/27/22 15:56 Intake & Output 03/05/22 03/06/22 03/06/22 18:59 06:59 18:59 Intake Total 236 118 Output Total 500 875 600 Balance -395 -674 -600 Intake: Oral 236 118 Output: Urine 500 875 600 Other: Voiding Method Urinal Urinal Urinal - Exam GENERAL EXAM: Awake, alert, 61-year-old male, sitting up in bed, on 2 L nasal cannula, comfortable in no apparent distress. HEAD: Normocephalic. EYES: Normal reaction of pupils, equal size. NOSE: Clear with pink turbinates. THROAT: No erythema or exudates. NECK: No masses, no JVD. CHEST: No chest wall deformity. LUNGS: Equal air entry with bilateral scattered rhonchi and crackles in the bases right greater than left. CVS: S1 and S2 normal with no audible murmur, regular rhythm. ABDOMEN: No hepatosplenomegaly, normal bowel sounds, no guarding or rigidity. SPINE: No scoliosis or deformity SKIN: No rashes CENTRAL NERVOUS SYSTEM: Alert, tone is normal in all 4 extremities. EXTREMITIES: Scaly patches on the bottom of the feet. There is no peripheral edema. No clubbing, no cyanosis. Peripheral pulses are intact. - Labs CBC & Chem 7: 03/06/22 06:24 03/06/22 06:24 Labs: Abnormal Lab Results - Last 24 Hours (Table) 03/05/22 03/05/22 03/05/22 Range/Units 06:25 11:50 14:59 RBC (4.30-5.90) m/uL Hgb (13.0-17.5) gm/dL Hct (39.0-53.0) % Neutrophils # (1.3-7.7) k/uL Lymphocytes # (1.0-4.8) k/uL Sodium (137-145) mmol/L Potassium 2.8 L (3.5-5.1) mmol/L Chloride (98-107) mmol/L Carbon Dioxide (22-30) mmol/L Creatinine (0.66-1.25) mg/dL Glucose (74-99) mg/dL POC Glucose (mg/dL) 135 H (70-110) mg/dL Calcium (8.4-10.2) mg/dL Magnesium 1.4 L (1.6-2.3) mg/dL 03/05/22 03/05/22 03/05/22 Range/Units 16:35 18:19 20:04 RBC (4.30-5.90) m/uL Hgb (13.0-17.5) gm/dL Hct (39.0-53.0) % Neutrophils # (1.3-7.7) k/uL Lymphocytes # (1.0-4.8) k/uL Sodium (137-145) mmol/L Potassium 3.2 L (3.5-5.1) mmol/L Chloride (98-107) mmol/L Carbon Dioxide (22-30) mmol/L Creatinine (0.66-1.25) mg/dL Glucose (74-99) mg/dL POC Glucose (mg/dL) 193 H 232 H (70-110) mg/dL Calcium (8.4-10.2) mg/dL Magnesium (1.6-2.3) mg/dL 03/06/22 03/06/22 03/06/22 Range/Units 06:19 06:24 06:24 RBC 3.60 L (4.30-5.90) m/uL Hgb 10.6 L (13.0-17.5) gm/dL Hct 32.7 L (39.0-53.0) % Neutrophils # 7.9 H (1.3-7.7) k/uL Lymphocytes # 0.5 L (1.0-4.8) k/uL Sodium 132 L (137-145) mmol/L Potassium 2.6 L* (3.5-5.1) mmol/L Chloride 84 L (98-107) mmol/L Carbon Dioxide 46 H* (22-30) mmol/L Creatinine 0.58 L (0.66-1.25) mg/dL Glucose 133 H (74-99) mg/dL POC Glucose (mg/dL) 144 H (70-110) mg/dL Calcium 7.0 L (8.4-10.2) mg/dL Magnesium (1.6-2.3) mg/dL Assessment and Plan Assessment: Recurrent seizure activity, and the patient noncompliant with epilepsy medications. MRI of the brain revealed right hippocampus and uncus restricted diffusion favoring sequela of patient's seizures. Acute hypoxemic respiratory failure secondary to suspected aspiration pneumonia, with increasing right lower lobe collapse. Barium swallow from 02/27/2022 revealed no penetration or aspiration identified. The patient has bilateral pleural effusion moderate in size more so on the right and passive atelectasis of the lung base in addition to some areas of patchy groundglass pulmonary infiltrates. Suspect transudative effusion secondary to CHF. Stable on 2 L nasal cannula. Diuresing well. Acute exacerbation of chronic systolic congestive heart failure with previous echocardiogram revealing ejection fraction of 40-45%, proBNP greater than 18,000 History of chronic tobacco use and nicotine dependence. History of hypertension. History of chronic alcohol abuse. History of marijuana use. Chronic wounds, lower extremities. Plan: The patient was seen and evaluated Chest x-ray, labs and medications reviewed Currently improved and on 2 L nasal cannula Remains on IV diuretics, remains in a negative balance He has declined a thoracentesis Continue the current treatment plan We will continue to follow I have personally seen and examined the patient, performed the documentation and the assessment and plan as written. Number of minutes spent on the visit: 10.
[2022-03-06 11:35] LABS: Carbon Dioxide 43 mmol/L (22-30); Potassium 2.7 mmol/L (3.5-5.1)
--- NOTE | 2022-03-06 11:58 | P.PN ---
Subjective Progress Note Date: 03/06/22 Principal diagnosis: Aspiration pneumonia Patient is a 61-year-old male with a past medical history significant for chronic on both abuse seizure disorder noncompliant with his seizure medication patient was brought into the ER with acute onset of seizure , patient did have elevated white count and evidence of multifocal infiltrating mostly in the left perihilar region concerning for possible aspiration pneumonia. On today's evaluation that is 03/06/2022, the patient continues to be afebrile, the patient is breathing comfortably on 2 L nasal cannula , the patient denies any chest pain , the patient cough has decreased in intensity now back up any sputum no nausea no vomiting no abdominal pain or diarrhea Objective - Vital Signs Vital signs: Vital Signs Temp 98.0 F 03/06/22 07:38 Pulse 62 03/06/22 09:20 Resp 18 03/06/22 07:38 BP 112/67 03/06/22 07:38 Pulse Ox 95 03/06/22 09:12 FiO2 40 02/27/22 15:56 Intake & Output 03/05/22 03/06/22 03/06/22 18:59 06:59 18:59 Intake Total 236 118 Output Total 500 875 600 Balance -350 -831 -600 Intake: Oral 236 118 Output: Urine 500 875 600 Other: Voiding Method Urinal Urinal Urinal - Exam GENERAL DESCRIPTION: Middle-aged male lying in bed in no distress RESPIRATORY SYSTEM: Unlabored breathing , decreased breath sounds at bases HEART: S1 S2 regular rate and rhythm , ABDOMEN: Soft , no tenderness EXTREMITIES: No edema feet - Labs CBC & Chem 7: 03/06/22 06:24 03/06/22 10:37 Labs: Abnormal Lab Results - Last 24 Hours (Table) 03/05/22 03/05/22 03/05/22 Range/Units 06:25 14:59 16:35 RBC (4.30-5.90) m/uL Hgb (13.0-17.5) gm/dL Hct (39.0-53.0) % Neutrophils # (1.3-7.7) k/uL Lymphocytes # (1.0-4.8) k/uL Sodium (137-145) mmol/L Potassium 2.8 L (3.5-5.1) mmol/L Chloride (98-107) mmol/L Carbon Dioxide (22-30) mmol/L Creatinine (0.66-1.25) mg/dL Glucose (74-99) mg/dL POC Glucose (mg/dL) 193 H (70-110) mg/dL Calcium (8.4-10.2) mg/dL Magnesium 1.4 L (1.6-2.3) mg/dL 03/05/22 03/05/22 03/06/22 Range/Units 18:19 20:04 06:19 RBC (4.30-5.90) m/uL Hgb (13.0-17.5) gm/dL Hct (39.0-53.0) % Neutrophils # (1.3-7.7) k/uL Lymphocytes # (1.0-4.8) k/uL Sodium (137-145) mmol/L Potassium 3.2 L (3.5-5.1) mmol/L Chloride (98-107) mmol/L Carbon Dioxide (22-30) mmol/L Creatinine (0.66-1.25) mg/dL Glucose (74-99) mg/dL POC Glucose (mg/dL) 232 H 144 H (70-110) mg/dL Calcium (8.4-10.2) mg/dL Magnesium (1.6-2.3) mg/dL 03/06/22 03/06/22 03/06/22 Range/Units 06:24 06:24 10:37 RBC 3.60 L (4.30-5.90) m/uL Hgb 10.6 L (13.0-17.5) gm/dL Hct 32.7 L (39.0-53.0) % Neutrophils # 7.9 H (1.3-7.7) k/uL Lymphocytes # 0.5 L (1.0-4.8) k/uL Sodium 132 L 132 L (137-145) mmol/L Potassium 2.6 L* 2.7 L* (3.5-5.1) mmol/L Chloride 84 L 85 L (98-107) mmol/L Carbon Dioxide 46 H* 43 H* (22-30) mmol/L Creatinine 0.58 L 0.58 L (0.66-1.25) mg/dL Glucose 133 H 187 H (74-99) mg/dL POC Glucose (mg/dL) (70-110) mg/dL Calcium 7.0 L 7.5 L (8.4-10.2) mg/dL Magnesium (1.6-2.3) mg/dL 03/06/22 Range/Units 11:25 RBC (4.30-5.90) m/uL Hgb (13.0-17.5) gm/dL Hct (39.0-53.0) % Neutrophils # (1.3-7.7) k/uL Lymphocytes # (1.0-4.8) k/uL Sodium (137-145) mmol/L Potassium (3.5-5.1) mmol/L Chloride (98-107) mmol/L Carbon Dioxide (22-30) mmol/L Creatinine (0.66-1.25) mg/dL Glucose (74-99) mg/dL POC Glucose (mg/dL) 199 H (70-110) mg/dL Calcium (8.4-10.2) mg/dL Magnesium (1.6-2.3) mg/dL Assessment and Plan (1) Pneumonia Current Visit: Yes Status: Acute Code(s): J18.9 - PNEUMONIA, UNSPECIFIED ORGANISM SNOMED Code(s): 328170317 Plan: 1patient presented to hospital with active seizures in this patient now with evidence of multifocal pneumonia mostly left perihilar region did have elevated vital concerning for pneumonia of aspiration etiology. 2positive blood culture finalized as staph epi likely skin contamination blood cultures repeated 02/25/2022 so far negative. 3patient a slowly clinical improvement the patient white count has normalized, patient to continue with the Zosyn while inpatient and plan to finish therapy with oral Augmentin Time with Patient: Less than 30
[2022-03-06 16:09] LABS: Potassium 2.9 mmol/L (3.5-5.1)
[2022-03-06 16:40] LABS: Glucose,Whole Blood 176 mg/dL (70-110)
--- NOTE | 2022-03-06 18:46 | P.PN ---
Subjective Progress Note Date: 03/06/22 Patient was seen for a follow-up. Patient is sitting comfortably in the bed side commode. Patient denies any headache. Denies any numbness tingling chest pain. No focal symptoms. Offers no complaints. Patient admits to drinking only 1 or 2 beers per day. Denies excessive alcoholism. Objective - Vital Signs Vital signs: Vital Signs Temp 98.2 F 03/06/22 16:59 Pulse 78 03/06/22 16:59 Resp 16 03/06/22 16:59 BP 116/69 03/06/22 16:59 Pulse Ox 95 03/06/22 16:59 FiO2 40 02/27/22 15:56 Intake & Output 03/05/22 03/06/22 03/06/22 18:59 06:59 18:59 Intake Total 236 118 240 Output Total 500 875 800 Balance -264 -757 -560 Intake: Oral 236 118 240 Output: Urine 500 875 800 Other: Voiding Method Urinal Urinal Urinal - Exam Patient is alert and awake, appears much more normal mentation. Patient states it is February 2022. He knows he is in [facility] and name of the current president Mr. King. Speech is slightly hoarse. No aphasia or dysarthria. Cranial nerve shows visual wang are full. Face is symmetric and tongue protrudes the midline. Muscle strength is normal in the arms and legs except hip flexion which is 5- bilaterally. Left shoulder is weak related to arthritic change. - Labs CBC & Chem 7: 03/06/22 06:24 03/07/22 07:04 Labs: Abnormal Lab Results - Last 24 Hours (Table) 03/05/22 03/05/22 03/06/22 Range/Units 18:19 20:04 06:19 RBC (4.30-5.90) m/uL Hgb (13.0-17.5) gm/dL Hct (39.0-53.0) % Neutrophils # (1.3-7.7) k/uL Lymphocytes # (1.0-4.8) k/uL Sodium (137-145) mmol/L Potassium 3.2 L (3.5-5.1) mmol/L Chloride (98-107) mmol/L Carbon Dioxide (22-30) mmol/L Creatinine (0.66-1.25) mg/dL Glucose (74-99) mg/dL POC Glucose (mg/dL) 232 H 144 H (70-110) mg/dL Calcium (8.4-10.2) mg/dL 03/06/22 03/06/22 03/06/22 Range/Units 06:24 06:24 10:37 RBC 3.60 L (4.30-5.90) m/uL Hgb 10.6 L (13.0-17.5) gm/dL Hct 32.7 L (39.0-53.0) % Neutrophils # 7.9 H (1.3-7.7) k/uL Lymphocytes # 0.5 L (1.0-4.8) k/uL Sodium 132 L 132 L (137-145) mmol/L Potassium 2.6 L* 2.7 L* (3.5-5.1) mmol/L Chloride 84 L 85 L (98-107) mmol/L Carbon Dioxide 46 H* 43 H* (22-30) mmol/L Creatinine 0.58 L 0.58 L (0.66-1.25) mg/dL Glucose 133 H 187 H (74-99) mg/dL POC Glucose (mg/dL) (70-110) mg/dL Calcium 7.0 L 7.5 L (8.4-10.2) mg/dL 03/06/22 03/06/22 03/06/22 Range/Units 11:25 15:48 16:36 RBC (4.30-5.90) m/uL Hgb (13.0-17.5) gm/dL Hct (39.0-53.0) % Neutrophils # (1.3-7.7) k/uL Lymphocytes # (1.0-4.8) k/uL Sodium (137-145) mmol/L Potassium 2.9 L (3.5-5.1) mmol/L Chloride (98-107) mmol/L Carbon Dioxide (22-30) mmol/L Creatinine (0.66-1.25) mg/dL Glucose (74-99) mg/dL POC Glucose (mg/dL) 199 H 176 H (70-110) mg/dL Calcium (8.4-10.2) mg/dL Assessment and Plan Assessment: * Seizure disorder, came with recurrent seizures (3). Seizures aborted with Versed 5 mg IV push. * Abnormal brain MRI, with abnormal signal with restricted diffusion in the right hippocampus and uncus. Probably favors sequela of patient's seizure. * History of alcoholism. Patient at present denies any regular alcoholism. He states that he just drinks 1-2 beers per night. Patient also takes Klonopin regularly, denies running out of it. No obvious cause/provoking factor identified for the seizure. * Dysphagia, unclear cause. Patient failed swallow. * Pneumonia * Bacteremia with staph coagulase-negative, felt to be contaminant-per ID. * Feet ulcers * Tobacco use * Marijuana use * Coronary artery disease Plan: * Continue Keppra. Patient has received a loading dose of Keppra 2000 mg in the ER, and will be maintained on Keppra 1000 mg twice a day. * Dysphagia is of unclear cause. Possible CVA. MRI of the brain did reveal abnormal signal suspicious for seizure related versus CVA. * EEG was abnormal due to presence of low amplitude sharp-appearing waves in the right frontotemporal region. This may suggest underlying cortical irritability and tendency for seizures. No electrographic seizure was recorded. * MRI of the brain without contrast revealed right hippocampus and uncus restricted diffusion is favored to represent sequela of patient's seizure. Other differential includes mesial temporal sclerosis, however it is felt to be less likely given no significant atrophic changes. Other etiologies include limbic encephalitis. Short-term follow-up MRI is recommended. I personally reviewed MRI, agree with the findings. * Start aspirin 81 mg daily, as there is abnormal signal on DWI in the right hippocampus. * 2-D echo from 03/24/2021 revealed normal left ventricular size, moderate concentric LVH. EF is mild to moderately impaired 40-45%. Normal left atrial size. Mild aortic valve sclerosis with trace to mild AR. * Carotid Doppler revealed less than 50% stenosis of bilateral carotid bifurcation. Antegrade flow right vertebral artery. Left vertebral unable to visualize. * Lumbar puncture, rule out encephalitis (less likely with improving mentation). * Check NMDA antibodies. * For pneumonia, patient currently on Zosyn. ID following. * No driving, climbing ladders, operating dangerous machineries or swimming. * Recommended abstinence from alcoholism, marijuana and tobacco use. * Patient to undergo LP the morning.
[2022-03-06 20:11] LABS: Glucose,Whole Blood 215 mg/dL (70-110)
[2022-03-07 05:55] LABS: Glucose,Whole Blood 139 mg/dL (70-110)
[2022-03-07] MEDS: INSULIN ASPART (NovoLOG) 100 UNIT/ML VIAL SQ SCH ×4 (05:56→20:30)
[2022-03-07] MEDS: methylPREDNISolone SOD SUCCI 125 MG/2 ML VIAL IV SCH ×4 (05:59→23:05)
[2022-03-07] MEDS: IPRATROPIUM-ALBUTEROL 3 ML NEB INHALATION SCH ×4 (07:14→20:44)
[2022-03-07] MEDS: HEPARIN SODIUM,PORCINE/PF 5,000 UNIT/0.5 ML SYRINGE SQ SCH ×3 (07:30→23:06)
[2022-03-07] MEDS: PIPERACILLIN-TAZOBACTAM 3.375 GM in SODIUM CHLORIDE 0.9% 100 ML IVPB SCH ×3 (07:38→23:06)
[2022-03-07] MEDS: FUROSEMIDE 10 MG/ML 4 ML VIAL IV SCH ×2 (07:39→20:25)
[2022-03-07] MEDS: METOPROLOL TARTRATE 50 MG TAB PO SCH ×2 (07:39→20:24)
[2022-03-07] MEDS: TAMSULOSIN 0.4 MG CAP.ER.24H PO SCH (07:39)
[2022-03-07] MEDS: THIAMINE 100 MG TAB PO SCH (07:39)
[2022-03-07] MEDS: FAMOTIDINE 20 MG TAB PO SCH (07:39)
[2022-03-07] MEDS: FLUCONAZOLE 100 MG TAB PO SCH (07:39)
[2022-03-07] MEDS: levETIRAcetam 500 MG TAB PO SCH ×2 (07:39→20:25)
[2022-03-07] MEDS: ASPIRIN 81 MG PO SCH (07:39)
[2022-03-07 08:19] LABS: African American GFR (CKD) >90 (>60 ml/min/1.73 sqM); Anion Gap 1 mmol/L; Blood Urea Nitrogen 14 mg/dL (9-20); Calcium 7.2 mg/dL (8.4-10.2); Carbon Dioxide 40 mmol/L (22-30); Chloride 91 mmol/L (98-107); Glucose 121 mg/dL (74-99); Magnesium 1.8 mg/dL (1.6-2.3); Non-African American GFR(CKD) >90 (>60 ml/min/1.73 sqM); Potassium 3.4 mmol/L (3.5-5.1); Sodium 132 mmol/L (137-145)
[2022-03-07] MEDS ORDERED: POTASSIUM CHLORIDE ER 20 MEQ TAB.ER PO STA (10:34)
[2022-03-07] MEDS ORDERED: MAGNESIUM SULFATE-D5W PMX 1 GM in DEXTROSE/WATER 1 100ML.BAG IVPB ONE (10:34)
--- NOTE | 2022-03-07 10:37 | P.PN ---
Subjective From the records: 61-year-old male with a known history of seizure disorder, currently with a smoker and current alcohol abuse and currently not on any antiepileptic drugs was brought to ER by ambulance due to seizures.. Patient was also having c hronic foot wounds and is on follow-up with wound care center. Patient is also noncompliant with follow-up and medications. Apparently patient had 3 episodes of seizures within an hour and has been acting differently. Patient's parents called EMS. Upon arrival to the ER patient was having leftward gaze deviation and was actively seizing. Patient was given 5 mg of IV Versed and seizure stopped. Patient was postictal. Patient is still drowsy and lethargic and unable to provide history. CT head and cervical spine showed no acute intracranial process. Nonspecific white matter changes likely secondary to chronic small vessel ischemic disease. No evidence of cervical spine fracture. Mild COPD changes with intralobular septal thickening and patchy groundglass opacities within the bilateral upper lobes concerning for infectious/infectious inflammatory process. Chest x-ray showed multifocal airspace opacities most pronounced on the left hilar region. Findings concerning for pneumonia. Foot x-ray showed no evidence of acute fracture. No osteomyelitis. Multifocal osteoarthrosis changes. EKG showed sinus tachycardia. Laboratory data showed WBC 18.6 hemoglobin 13.1 and lipase 471 2124 potassium 4.9 chloride 96 bicarb is 19 BUN 16 creatinine 0.66 and blood sugar is 2631 lactic acid 7.9 and albumin 2.9 serum alcohol level is less than 10 and influenza AB and RSV PCR and COVID-19 not detected. Patient is currently ER and requiring oxygen at 6 L via nasal cannula. 24 hour interval change 03/01/2022 Patient is seen and evaluated in follow-up on the selective care unit. Awake and alert in no acute distress; maintaining O2 saturations in the 90s on 2 L/m per nasal cannula. His main complaint is that of fatigue. No worsening shortness of breath, cough or congestion. -- Chest x-ray reveals moderate central vascular congestion with small to modera te right pleural effusion and tiny left pleural effusion. He has D5W at 75 mL per hour. - Follow-up blood culture reveals no growth. Urine culture revealed no growth. ProBNP 18,500. Patient received Lasix 40 mg IV 1; echocardiogram is recommended - Currently on bronchodilators. Antibiotics in the form of Zosyn. Heparin for DVT prophylaxis. Patient underwent radium swallow which did not reveal any aspiration -- patient was switched to oral Lasix 20 mg by mouth daily. He has a incentive spirometer. He also has a flutter valve. IV fluids are in the form of normal saline at rate of 50 mL an hour. He has a chronic smoker. He is using DuoNeb nebulized treatments and this will be switched to [id number] every 4 hours. - Pulmonary service recommending to continue with current management with further recommendations once echocardiogram results aren't available -- Patient has been evaluated by cardiology for tachycardia and metoprolol has been resumed at 100 mg twice a day - Patient is recommended abstinence from alcohol and tobacco use -- Possible discharge in next 24 hours once cleared by pulmonary service 03/02/2022 Patient is a pleasant 61 years old male with multiple medical problems was presented initially with breakthrough seizure, patient has insight. He denies any specific symptoms. Patient has been followed by neurologist and Then Keppra, MRI of the brain showing sequelae of seizures with neurological deficits and suspicious for CVA felt less likely by neurologist. Lumbar puncture still pending. Other than that patient reports improvement, he is eating better, no respiratory symptoms, his weakness is better. Calle catheter still in place which was placed on 02/25. Patient denies any depression. Resume the care of the patient 03/06/2022 Patient awake sitting up in bed, mildly tachypneic, mildly confused Patient denies chest pain or significant dyspnea. He still feels weak. He tolerates that well. No Calle catheter. He is saturating 95% on 2 L oxygen via nasal cannula I talked to him about going to rehab and he looks agreeable for short-term. Patient remains on IV Lasix, IV Solu-Medrol and Zosyn which can't be switched to oral antibiotics upon discharge Hypokalemia would be replaced per protocol We will follow-up with the neurologist if any further recommendation, discussed with the staff 03/07/2022 patient clinically doing well, he denies any specific symptoms, his mentation is back to baseline. Vitals and labs are reviewed and looks stable, low potassium and magnesium replaced Patient remains on IV Lasix, IV Solu-Medrol, Zosyn. Also is on Keppra Pending lumbar puncture recommended by neurologist Heparin placed on hold for lumbar puncture, discussed with the staff. Last dose received 03/06/2022 Objective - Vital Signs Vital signs: Vital Signs Temp 98.0 F 03/07/22 07:35 Pulse 81 03/07/22 07:35 Resp 16 03/07/22 07:35 BP 104/63 03/07/22 07:35 Pulse Ox 90 L 03/07/22 07:35 FiO2 40 02/27/22 15:56 Intake & Output 03/06/22 03/07/22 03/07/22 18:59 06:59 18:59 Intake Total 240 Output Total 800 1150 Balance -560 -1150 Intake: Oral 240 Output: Urine 800 1150 Other: Voiding Method Urinal Urinal Urinal # Bowel Movements 1 - Exam -GENERAL: The patient is alert and oriented x3, not in any acute distress. Well developed, well nourished. Generally weak HEENT: Pupils are round and equally reacting to light. EOMI. No scleral icterus. No conjunctival pallor. Normocephalic, atraumatic. No pharyngeal erythema. No thyromegaly. CARDIOVASCULAR: S1 and S2 present. No murmurs, rubs, or gallops. PULMONARY: Chest is clear to auscultation, no wheezing or crackles. ABDOMEN: Soft, nontender, nondistended, normoactive bowel sounds. No palpable organomegaly. MUSCULOSKELETAL: No joint swelling or deformity. EXTREMITIES: No cyanosis, clubbing, or pedal edema. NEUROLOGICAL: Gross neurological examination did not reveal any focal deficits. SKIN: No rashes. no petechiae. - Labs CBC & Chem 7: 03/06/22 06:24 03/07/22 07:04 Labs: Abnormal Lab Results - Last 24 Hours (Table) 03/06/22 03/06/22 03/06/22 Range/Units 10:37 11:25 15:48 Sodium 132 L (137-145) mmol/L Potassium 2.7 L* 2.9 L (3.5-5.1) mmol/L Chloride 85 L (98-107) mmol/L Carbon Dioxide 43 H* (22-30) mmol/L Creatinine 0.58 L (0.66-1.25) mg/dL Glucose 187 H (74-99) mg/dL POC Glucose (mg/dL) 199 H (70-110) mg/dL Calcium 7.5 L (8.4-10.2) mg/dL 03/06/22 03/06/22 03/07/22 Range/Units 16:36 20:10 05:54 Sodium (137-145) mmol/L Potassium (3.5-5.1) mmol/L Chloride (98-107) mmol/L Carbon Dioxide (22-30) mmol/L Creatinine (0.66-1.25) mg/dL Glucose (74-99) mg/dL POC Glucose (mg/dL) 176 H 215 H 139 H (70-110) mg/dL Calcium (8.4-10.2) mg/dL 03/07/22 Range/Units 07:04 Sodium 132 L (137-145) mmol/L Potassium 3.4 L (3.5-5.1) mmol/L Chloride 91 L (98-107) mmol/L Carbon Dioxide 40 H (22-30) mmol/L Creatinine 0.48 L (0.66-1.25) mg/dL Glucose 121 H (74-99) mg/dL POC Glucose (mg/dL) (70-110) mg/dL Calcium 7.2 L (8.4-10.2) mg/dL Assessment and Plan Assessment: Acute Seizure disorder with hx of recurrent seizures. Noncompliant with medications. Bilateral upper lobe pneumonia concerning for aspiration pneumonia Sepsis secondary above Severe lactic acidosis 7.9 on admission, resolved Acute hypoxemic respiratory failure was on BIPAP currently requiring 2L nasal cannula hyponatremia Alcohol abuse History of marijuana use Ongoing nicotine addiction Coagulase-negative staph aureus bacteremia likely contamination Hypertension Sinus tachycardia Chronic lower extremity skin changes/wounds. Plan: Pending lumbar puncture Neurologist service on the case Neurologist recommended short-term follow-up MRI Continue with Keppra Continue with blood pressure medication Continue with Lasix. Continue Zosyn Cardiology team, infectious disease and pulmonary team already sent of the case. Labs and medication were reviewed.. Continue same treatment. Continue with symptomatic treatment. Resume home medication. Monitor labs and vitals. DVT and GI prophylaxis. Further recommendations as per clinical course of the patient DVT prophylaxis: Subcutaneous heparin, on hold GI Prophylaxis: Pepcid PT/OT: Pending Prognosis is guarded
[2022-03-07] MEDS: POTASSIUM CHLORIDE ER 20 MEQ TAB.ER PO SCH (10:45)
[2022-03-07] MEDS ORDERED: IV FLUID CONTINUATION 200 ML IV ONE (11:15)
--- NOTE | 2022-03-07 11:28 | P.PN ---
Subjective Progress Note Date: 03/07/22 61-year-old male who presents to the emergency room on February 21, via EMS, for possible seizure. The patient has a history of chronic alcohol abuse, and chronic foot wounds. He apparently does have a history of seizure disorder, and is apparently noncompliant with his seizure medications. He apparently presented to the emergency department with acute onset of seizure, earlier on the day of admission, which was February 21. He apparently had 3 different seizure episodes within one hour. When EMS arrived, he apparently was actively seizing. They administered 5 mg of IV Versed, and the seizure stopped. The patient was apparently postictal after that. Since being in the emergency department, the patient has been improving neurologically. He was on BiPAP for a short period of time with settings of 15/5 and 60%, up until about 3:00 in the morning. Now he is on between 6-7 L of nasal oxygen. He is getting saline at keep vein open. Current vital signs include sinus tachycardia with a rate of 138, blood pressure 116/85 respiratory rate 22 and saturations 90-92%. White count 26.4, hemoglobin 13.5, hematocrit 43.6, and platelet count was normal. Most recent blood gases show pO2 71, pCO2 47, and a pH is 7.26. That was on BiPAP at 60%. Troponin was 0.030. Initial pH was 7.12. Sodium 124, potassium 4.9, chlorides 96, CO2 19, BUN 6, creatinine 0.66. Urine screen was positive f or benzodiazepines, and marijuana. Chest x-ray shows patchy airspace disease in the left hilar region, consistent with possible aspiration pneumonia. The patient is seen today 02/23/2022 in follow-up on the selective care unit. He is currently resting fairly comfortably in bed. Somewhat lethargic. He is on BiPAP 15/5 and 60% FiO2 with O2 saturations in the 90s. EEG revealed possible low amplitude sharp appearing waves in the right frontotemporal region. This may suggest underlying cortical irritability intensive for seizures. No seizures were recorded. Blood cultures positive for coag-negative staph. Urine culture negative. White count 21.1. Hemoglobin 12.4. Platelets 331. Sodium 138. Potassium 4.8. BUN 7. Creatinine 0.52. AST 39. ALT 18. He is continued on bronchodilators and Zosyn. Heparin for DVT prophylaxis. Remains in the CIWA protocol. Remains on Keppra. The patient seen today 02/24/2022 in follow-up on the selective care unit. He is currently sitting up in bed. More awake and arousable. Currently on 5 L high flow nasal cannula. He has been alternating with BiPAP 15/5 and 60% FiO2. He has normal saline at 50 MLS per hour. Maintained on Zosyn. Bronchodilators. Heparin for DVT prophylaxis. No seizure activity. Remains in CIWA protocol. Last Ativan requirement at 4 AM this morning. The cultures positive for coag- negative staph. White count 15.4. Hemoglobin 11.1. Platelets 325. Sodium 139. Potassium 3.8. BUN 9. Creatinine 0.75. The patient is seen today 02/25/2022 in follow-up on the selective care unit. He is more awake and alert today. Denies any worsening shortness of breath, cough or congestion. Currently maintaining O2 saturations in the 90s on 5 L/m per nasal cannula. He had initially been on BiPAP 5 over 5 and 60% FiO2. Chest x-ray revealed worsening scattered airspace opacities with a new right lower lobe collapse. MRI of the brain revealed right hippocampus and fungus restricted diffusion favoring sequela patient seizure. Generalized atrophy changes and mild nonspecific white matter changes secondary to small vessel ischemic disease. Moderate paranasal sinus disease. Carotid Dopplers revealed less than 50% stenosis bilaterally. Blood cultures revealed coag-negative staph. White count 11.8. Hemoglobin 11.2. Sodium 143. Potassium 3.9. BUN 12. Creatinine 0.57. He remains on DuoNeb inhalations. Antibiotics in the form of Zosyn. Heparin for DVT prophylaxis. Remains on Keppra. Normal saline at 100 ML's per hour. No seizure activity. The patient is seen today 02/26/2022 in follow-up on the selective care unit. He is currently resting comfortably in bed. Awake and alert in no acute distress. He is maintaining O2 saturations in the 90s on 5 L/m per nasal cannula. D545 at 75 ML's per hour. He is continued on bronchodilators. Continue on heparin for DVT prophylaxis. Remains on antibiotics in the form of Zosyn. Follow-up blood cultures revealing no growth. Urine culture revealed no growth. No seizure activity. The patient is seen today 02/27/2022 in follow-up on the selective care unit. He is sitting up in bed. Awake and alert in no acute distress. Currently on Bi PAP 15/5 on 40% FiO2 alternating with 5 L high flow nasal cannula. Receiving D5 W at 50 MLS per hour Follow-up blood cultures revealed no growth. Sodium 143. Potassium 4.8. Chloride 116. BUN 13. Creatinine 0.51. Glucose 103. The plan is for a barium swallow today. She remains on bronchodilators, Zosyn, heparin for DVT prophylaxis. Continue to CIWA protocol. No seizures noted. The patient is seen today 02/28/2022 in follow-up on the selective care unit. He is sitting up in bed. Awake and alert in no acute distress. Currently maintaining O2 saturations in the 90s on 2 L/m per nasal cannula. His main complaint is that of fatigue. No worsening shortness of breath, cough or conge stion. No seizure activity. He's been afebrile. Hemodynamically stable. Chest x-ray reveals moderate central vascular congestion with small to moderate right pleural effusion and tiny left pleural effusion. He has D5W at 75 mL per hour. Follow-up blood culture reveals no growth. Urine culture revealed no growth. ProBNP 18,500. Has only been in a -135 mL balance. Currently on bronchodilators. Antibiotics in the form of Zosyn. Heparin for DVT prophylaxis. On 03/01/2022, the patient is being seen for a follow-up. Remains on O2 at 2 L and has a BiPAP at the bedside. Breath sounds are quite diminished bilaterally and the patient is a chronic smoker. No chest pain. He has a congested cough. No aspiration. The patient is on Lasix and the patient was switched to oral Lasix 20 mg by mouth daily. He has a incentive spirometer. He also has a flutter valve. IV fluids are in the form of normal saline at rate of 50 mL an hour. He has a chronic smoker. He is using DuoNeb nebulized treatments and this will be switched to [id number] every 4 hours. He is on heparin subcu for DVT prophylaxis. No other significant events otherwise for now. No seizure activity. He has chronic alcoholism in his been a chronic smoker. 03/02/2022, the patient remains on 2 L of oxygen by nasal cannula. Not utilizing the BiPAP. He has a flutter valve at the bedside and the patient and incentive spirometer. He remains on bronchodilators with DuoNeb about treatments [id number]. He had an echo of the heart yesterday and the patient was found to have a ejection fraction of 30% and LV's impaired. There is also evidence of apical septal and lateral inferior wall hypokinesis. RVSP 30. Mild aortic regurgitation and mitral regurgitation is also present. No evidence of any pericardial effusion. The follow-up chest x-ray that was done today shows cardiomegaly, effusions the lung bases and persistent right lower lobe opacification. The right mid and right lower lobe opacity is unchanged. The patient remains on IV Zosyn. 03/03/2022, the patient remains on 2 L of oxygen by nasal cannula. As mentioned, he has advanced COPD and cardiomyopathy also. There was a concern of his ongoing opacity in the right middle lobe/right lower lobe which has remained unchanged based on follow-up chest x-rays. Based on that, a CAT scan of the chest was ordered yesterday. Based on the CAT scan findings, the patient has moderate sized bilateral pleural effusion with compressive atelectasis of the right lung base. There is also areas of patchy infiltrates in the upper lobes. These areas of groundglass opacities in the upper lobes. However, predominant abnormality remains the bilateral pleural effusion which is moderate in size. At the same time, is complaining of difficulties in swallowing. He has developed some oropharyngeal candidiasis that'll be treated accordingly. The risk was a 10.3 with a hemoglobin of 11.6 and the BUN is at panel with a creatinine of 0.7. He remains on bronchodilators. Remains on steroids and is going to be tapered to prednisone burst taper. Obviously, the patient will need thoracentesis to give him symptomatic relief. On 03/04/2022, the patient remains on 2 L of oxygen by nasal cannula. Still quite lethargic. As mentioned yesterday, the patient was found to have bilateral pleural effusion moderate to large in size. I offered them thoracentesis. He declined. Based on that, he was started on diuretics and the patient is currently on a negative fluid balance. His BUN is at 30 with a creatinine of 0.5. The WBC count of 10.8. Is currently on Lasix at a dose of 40 mg IV every 12 hours. 03/05 2022, the patient is feeling fine. Is still not agreeable for thoracentesis. Will continue diuretics. Chest x-ray findings of essentially unchanged and the patient has bilateral pleural effusion on pulmonary vessel congestion. Nevertheless, he is in a negative fluid balance and overall he is improving. No new complaints otherwise for now.Blood work shows a hemoglobin of 11.1, WBC count of 10.4, platelets of 366, serum bicarbs of 45, sodium is at 136, potassium needs to be replaced at 2.8. The patient remains on Lasix and the patient is receiving Lasix 40 mg IV every 12 hours. He remains on IV Zosyn. The patient is seen today 03/06/2022 in follow-up on the selective care unit. He is currently sitting up in bed. Awake and alert in no acute distress. Maintaining good O2 saturations in the mid 90s on 2 L/m per nasal cannula. Afebrile. Hemodynamically stable. Recent chest x-ray reveals right lower lung airspace opacities. Some blunting of the left costophrenic angles. No significant change. Evidence of COPD. Follow-up will cultures revealed no growth. Urine culture revealed no growth. White count 9.0. Hemoglobin 10.6. Sodium 132. Potassium 2.6. Chloride 84. Bicarb 46. BUN 14. Creatinine 0.58. Glucose 133. Potassium is being replaced. Continued on bronchodilators, IV Solu-Medrol, Zosyn. Heparin for DVT prophylaxis. Continues on IV Lasix 40 mg every 12 hours. Currently in a -2.2 L balance. The patient is seen today 03/07/2022 in follow-up on selective care unit. He is awake and alert in no acute distress. Currently sitting up in bed. He is maintaining O2 saturations in the 90s on 2 L/m per nasal cannula. He denies any worsening shortness of breath, cough or congestion. Follow-up blood cultures revealing no growth. Sodium 132. Potassium 3.4. Bicarb 40. BUN 14. Creatinine 0.40. Glucose 121. He is continued on DuoNeb inhalations, IV Solu- Medrol and antibiotics in the form of Zosyn. Heparin for DVT prophylaxis. Continued on IV diuretics. Remains in a negative balance. No noted seizure activities. Objective - Vital Signs Vital signs: Vital Signs Temp 97.2 F L 03/07/22 11:19 Pulse 66 03/07/22 11:19 Resp 16 03/07/22 11:19 BP 110/69 03/07/22 11:19 Pulse Ox 97 03/07/22 11:19 FiO2 40 02/27/22 15:56 Intake & Output 03/06/22 03/07/22 03/07/22 18:59 06:59 18:59 Intake Total 240 120 Output Total 800 1150 1800 Balance -560 -1150 -1680 Intake: Oral 240 120 Output: Urine 800 1150 1800 Other: Voiding Method Urinal Urinal Urinal # Bowel Movements 1 - Exam GENERAL EXAM: Awake, alert, 61-year-old male, on 2 L nasal cannula, comfortable in no apparent distress. HEAD: Normocephalic. EYES: Normal reaction of pupils, equal size. NOSE: Clear with pink turbinates. THROAT: No erythema or exudates. NECK: No masses, no JVD. CHEST: No chest wall deformity. LUNGS: Equal air entry with bilateral crackles in the bases right greater than left. CVS: S1 and S2 normal with no audible murmur, regular rhythm. ABDOMEN: No hepatosplenomegaly, normal bowel sounds, no guarding or rigidity. SPINE: No scoliosis or deformity SKIN: No rashes CENTRAL NERVOUS SYSTEM: Alert, tone is normal in all 4 extremities. EXTREMITIES: Scaly patches on the bottom of the feet. There is no peripheral edema. No clubbing, no cyanosis. Peripheral pulses are intact. - Labs CBC & Chem 7: 03/06/22 06:24 03/07/22 07:04 Labs: Abnormal Lab Results - Last 24 Hours (Table) 03/06/22 03/06/22 03/06/22 Range/Units 10:37 11:25 15:48 Sodium 132 L (137-145) mmol/L Potassium 2.7 L* 2.9 L (3.5-5.1) mmol/L Chloride 85 L (98-107) mmol/L Carbon Dioxide 43 H* (22-30) mmol/L Creatinine 0.58 L (0.66-1.25) mg/dL Glucose 187 H (74-99) mg/dL POC Glucose (mg/dL) 199 H (70-110) mg/dL Calcium 7.5 L (8.4-10.2) mg/dL 03/06/22 03/06/22 03/07/22 Range/Units 16:36 20:10 05:54 Sodium (137-145) mmol/L Potassium (3.5-5.1) mmol/L Chloride (98-107) mmol/L Carbon Dioxide (22-30) mmol/L Creatinine (0.66-1.25) mg/dL Glucose (74-99) mg/dL POC Glucose (mg/dL) 176 H 215 H 139 H (70-110) mg/dL Calcium (8.4-10.2) mg/dL 03/07/22 Range/Units 07:04 Sodium 132 L (137-145) mmol/L Potassium 3.4 L (3.5-5.1) mmol/L Chloride 91 L (98-107) mmol/L Carbon Dioxide 40 H (22-30) mmol/L Creatinine 0.48 L (0.66-1.25) mg/dL Glucose 121 H (74-99) mg/dL POC Glucose (mg/dL) (70-110) mg/dL Calcium 7.2 L (8.4-10.2) mg/dL Assessment and Plan Assessment: Recurrent seizure activity, and the patient noncompliant with epilepsy medications. MRI of the brain revealed right hippocampus and uncus restricted diffusion favoring sequela of patient's seizures. Acute hypoxemic respiratory failure secondary to suspected aspiration pneumonia, with increasing right lower lobe collapse. Barium swallow from 02/27/2022 revealed no penetration or aspiration identified. The patient has bilateral pleural effusion moderate in size more so on the right and passive atelectasis of the lung base in addition to some areas of patchy groundglass pulmonary infiltrates. Suspect transudative effusion secondary to CHF. Stable on 2 L nasal cannula. Diuresing well. Acute exacerbation of chronic systolic congestive heart failure with previous echocardiogram revealing ejection fraction of 40-45%, proBNP greater than 18,000 History of chronic tobacco use and nicotine dependence. History of hypertension. History of chronic alcohol abuse. History of marijuana use. Chronic wounds, lower extremities. Plan: The patient was seen and evaluated Labs and medications reviewed Improved and on 2 L nasal cannula Remains on IV diuretics, remains in a negative balance Follow-up chest x-ray in a.m. We will continue to follow I have personally seen and examined the patient, performed the documentation and the assessment and plan as written. Number of minutes spent on the visit: 10.
--- NOTE | 2022-03-07 12:06 | P.PCN ---
Date of Procedure: 03/07/22 Description of Procedure: Procedure: Lumbar Puncture . Preoperative Diagnoses: Seizures Postoperative Diagnosis: same Anesthesia: Local only Condition: stable. Complications: none. Description of the procedure: The patient was brought to the procedure room on the stretcher. After consent was signed. All discussions were had regarding the risks, benefits and alternatives to the procedure. After consent was signed, the patient was laid in the left lateral decubitus position. At that point the level L3-L4 was palpated. A 27-gauge needle was used to anesthetize the skin and subcutaneous tissue using 1% lidocaine. After the needle was removed, a 22-gauge spinal needle was placed through the subcutaneous tissue into the spinal canal. The opening pressure was 10 on the closing pressure was 10. The patient did very well. We did discuss potential for a spinal headache and the treatments for that. The patient was taken back to his room. The samples were sent to the lab.
[2022-03-07 12:20] LABS: Glucose,Whole Blood 125 mg/dL (70-110)
[2022-03-07 12:59] LABS: Glucose,CSF 86 mg/dL (40-70); Total Protein,CSF 69 mg/dL (12-60)
[2022-03-07 15:01] LABS: Appearance,CSF Clear; CSF Tube Number 3; CSF Tube Volume 1.2; Nucleated Cells, CSF 0 u/L (0-5); Red Blood Cell,CSF 156 u/L (0-10)
[2022-03-07 15:02] LABS: Red Blood Cell, CSF Fresh 100 %
[2022-03-07 16:57] LABS: Glucose,Whole Blood 187 mg/dL (70-110)
[2022-03-07 20:10] LABS: Glucose,Whole Blood 229 mg/dL (70-110)
--- NOTE | 2022-03-07 21:39 | P.PN ---
Subjective Progress Note Date: 03/07/22 Principal diagnosis: Aspiration pneumonia Patient is a 61-year-old male with a past medical history significant for chronic on both abuse seizure disorder noncompliant with his seizure medication patient was brought into the ER with acute onset of seizure , patient did have elevated white count and evidence of multifocal infiltrating mostly in the left perihilar region concerning for possible aspiration pneumonia. On today's evaluation that is 03/07/2022, the patient remains to be afebrile, the patient is breathing comfortably on 2 L nasal cannula , the patient denies any chest pain , the patient cough has decreased in intensity and mostly dry in nature, the patient denies any nausea or vomiting no abdominal pain or diarrhea Objective - Vital Signs Vital signs: Vital Signs Temp 97.2 F L 03/07/22 11:19 Pulse 75 03/07/22 12:17 Resp 16 03/07/22 12:17 BP 112/76 03/07/22 12:17 Pulse Ox 91 L 03/07/22 12:17 FiO2 40 02/27/22 15:56 Intake & Output 03/06/22 03/07/22 03/07/22 18:59 06:59 18:59 Intake Total 240 120 Output Total 800 1150 1800 Balance -417 -7356 -1629 Intake: Oral 240 120 Output: Urine 800 1150 1800 Other: Voiding Method Urinal Urinal Urinal # Bowel Movements 1 - Exam GENERAL DESCRIPTION: Middle-aged male lying in bed in no distress RESPIRATORY SYSTEM: Unlabored breathing , decreased breath sounds at bases HEART: S1 S2 regular rate and rhythm , ABDOMEN: Soft , no tenderness EXTREMITIES: No edema feet - Labs CBC & Chem 7: 03/06/22 06:24 03/07/22 07:04 Labs: Abnormal Lab Results - Last 24 Hours (Table) 03/06/22 03/06/22 03/06/22 Range/Units 15:48 16:36 20:10 Sodium (137-145) mmol/L Potassium 2.9 L (3.5-5.1) mmol/L Chloride (98-107) mmol/L Carbon Dioxide (22-30) mmol/L Creatinine (0.66-1.25) mg/dL Glucose (74-99) mg/dL POC Glucose (mg/dL) 176 H 215 H (70-110) mg/dL Calcium (8.4-10.2) mg/dL 03/07/22 03/07/22 03/07/22 Range/Units 05:54 07:04 12:18 Sodium 132 L (137-145) mmol/L Potassium 3.4 L (3.5-5.1) mmol/L Chloride 91 L (98-107) mmol/L Carbon Dioxide 40 H (22-30) mmol/L Creatinine 0.48 L (0.66-1.25) mg/dL Glucose 121 H (74-99) mg/dL POC Glucose (mg/dL) 139 H 125 H (70-110) mg/dL Calcium 7.2 L (8.4-10.2) mg/dL Assessment and Plan (1) Pneumonia Current Visit: Yes Status: Acute Code(s): J18.9 - PNEUMONIA, UNSPECIFIED ORGANISM SNOMED Code(s): 733792332 Plan: 1patient presented to hospital with active seizures in this patient now with evidence of multifocal pneumonia mostly left perihilar region did have elevated vital concerning for pneumonia of aspiration etiology. 2positive blood culture finalized as staph epi likely skin contamination blood cultures repeated 02/25/2022 so far negative. 3patient showing Improvement the patient is afebrile and white count is normal, patient to continue with the Zosyn while inpatient and plan to finish therapy with oral Augmentin Time with Patient: Less than 30
[2022-03-08 06:01] LABS: Glucose,Whole Blood 139 mg/dL (70-110)
[2022-03-08] MEDS: INSULIN ASPART (NovoLOG) 100 UNIT/ML VIAL SQ SCH ×4 (06:05→21:24)
[2022-03-08] MEDS: methylPREDNISolone SOD SUCCI 125 MG/2 ML VIAL IV SCH ×2 (06:21→11:49)
--- NOTE | 2022-03-08 07:16 | XR ---
EXAMINATION TYPE: XR chest 1V portable DATE OF EXAM: 03/08/2022 6:43 AM COMPARISON: Chest radiographs from 03/05/2022 TECHNIQUE: XR chest 1V portable Portable AP radiograph of the chest. CLINICAL INDICATION:Male, 61 years old with history of evaluate right pleural effusion; FINDINGS: Lungs/Pleura: Blunting of the bilateral costophrenic angles. There remains right lower lung airspace opacities. Increased lucency and increased interstitial lung markings in lung apices. No pneumothorax . Pulmonary vascularity: Unremarkable. Heart/mediastinum: Cardiomediastinal silhouette is unremarkable. Musculoskeletal: No acute osseous pathology. Remote right-sided rib fractures suggested. IMPRESSION: 1. No significant change from one day prior with right lower lung airspace opacities in small right pleural effusion. 2. Trace left pleural effusion. 3. COPD changes.
[2022-03-08 07:42] LABS: HCT 30.9 % (39.0-53.0); HGB 10.1 gm/dL (13.0-17.5); Hypochromasia Slight; MCH 29.9 pg (25.0-35.0); MCHC 32.6 g/dL (31.0-37.0); MCV 91.7 fL (80.0-100.0); Mean Platelet Volume 8.9; Platelet Count 337 k/uL (150-450); RBC 3.37 m/uL (4.30-5.90); WBC 10.5 k/uL (3.8-10.6)
[2022-03-08] MEDS: IPRATROPIUM-ALBUTEROL 3 ML NEB INHALATION SCH ×4 (08:19→20:12)
[2022-03-08] MEDS: FUROSEMIDE 10 MG/ML 4 ML VIAL IV SCH (08:21)
[2022-03-08] MEDS: ASPIRIN 81 MG PO SCH (08:21)
[2022-03-08] MEDS: THIAMINE 100 MG TAB PO SCH (08:21)
[2022-03-08] MEDS: PIPERACILLIN-TAZOBACTAM 3.375 GM in SODIUM CHLORIDE 0.9% 100 ML IVPB SCH ×2 (08:21→16:56)
[2022-03-08] MEDS: FLUCONAZOLE 100 MG TAB PO SCH (08:21)
[2022-03-08] MEDS: levETIRAcetam 500 MG TAB PO SCH ×2 (08:22→21:23)
[2022-03-08] MEDS: TAMSULOSIN 0.4 MG CAP.ER.24H PO SCH (08:22)
[2022-03-08] MEDS: METOPROLOL TARTRATE 50 MG TAB PO SCH ×2 (08:24→21:23)
[2022-03-08] MEDS: PANTOPRAZOLE 40 MG/10 ML VIAL IVP SCH (08:50)
[2022-03-08] MEDS: HEPARIN SODIUM,PORCINE/PF 5,000 UNIT/0.5 ML SYRINGE SQ SCH (10:20)
[2022-03-08 11:40] LABS: Glucose,Whole Blood 271 mg/dL (70-110)
--- NOTE | 2022-03-08 11:58 | P.PN ---
Subjective From the records: 61-year-old male with a known history of seizure disorder, currently with a smoker and current alcohol abuse and currently not on any antiepileptic drugs was brought to ER by ambulance due to seizures.. Patient was also having c hronic foot wounds and is on follow-up with wound care center. Patient is also noncompliant with follow-up and medications. Apparently patient had 3 episodes of seizures within an hour and has been acting differently. Patient's parents called EMS. Upon arrival to the ER patient was having leftward gaze deviation and was actively seizing. Patient was given 5 mg of IV Versed and seizure stopped. Patient was postictal. Patient is still drowsy and lethargic and unable to provide history. CT head and cervical spine showed no acute intracranial process. Nonspecific white matter changes likely secondary to chronic small vessel ischemic disease. No evidence of cervical spine fracture. Mild COPD changes with intralobular septal thickening and patchy groundglass opacities within the bilateral upper lobes concerning for infectious/infectious inflammatory process. Chest x-ray showed multifocal airspace opacities most pronounced on the left hilar region. Findings concerning for pneumonia. Foot x-ray showed no evidence of acute fracture. No osteomyelitis. Multifocal osteoarthrosis changes. EKG showed sinus tachycardia. Laboratory data showed WBC 18.6 hemoglobin 13.1 and lipase 471 2124 potassium 4.9 chloride 96 bicarb is 19 BUN 16 creatinine 0.66 and blood sugar is 2631 lactic acid 7.9 and albumin 2.9 serum alcohol level is less than 10 and influenza AB and RSV PCR and COVID-19 not detected. Patient is currently ER and requiring oxygen at 6 L via nasal cannula. 24 hour interval change 03/01/2022 Patient is seen and evaluated in follow-up on the selective care unit. Awake and alert in no acute distress; maintaining O2 saturations in the 90s on 2 L/m per nasal cannula. His main complaint is that of fatigue. No worsening shortness of breath, cough or congestion. -- Chest x-ray reveals moderate central vascular congestion with small to modera te right pleural effusion and tiny left pleural effusion. He has D5W at 75 mL per hour. - Follow-up blood culture reveals no growth. Urine culture revealed no growth. ProBNP 18,500. Patient received Lasix 40 mg IV 1; echocardiogram is recommended - Currently on bronchodilators. Antibiotics in the form of Zosyn. Heparin for DVT prophylaxis. Patient underwent radium swallow which did not reveal any aspiration -- patient was switched to oral Lasix 20 mg by mouth daily. He has a incentive spirometer. He also has a flutter valve. IV fluids are in the form of normal saline at rate of 50 mL an hour. He has a chronic smoker. He is using DuoNeb nebulized treatments and this will be switched to [id number] every 4 hours. - Pulmonary service recommending to continue with current management with further recommendations once echocardiogram results aren't available -- Patient has been evaluated by cardiology for tachycardia and metoprolol has been resumed at 100 mg twice a day - Patient is recommended abstinence from alcohol and tobacco use -- Possible discharge in next 24 hours once cleared by pulmonary service 03/02/2022 Patient is a pleasant 61 years old male with multiple medical problems was presented initially with breakthrough seizure, patient has insight. He denies any specific symptoms. Patient has been followed by neurologist and Then Keppra, MRI of the brain showing sequelae of seizures with neurological deficits and suspicious for CVA felt less likely by neurologist. Lumbar puncture still pending. Other than that patient reports improvement, he is eating better, no respiratory symptoms, his weakness is better. Calle catheter still in place which was placed on 02/25. Patient denies any depression. Resume the care of the patient 03/06/2022 Patient awake sitting up in bed, mildly tachypneic, mildly confused Patient denies chest pain or significant dyspnea. He still feels weak. He tolerates that well. No Calle catheter. He is saturating 95% on 2 L oxygen via nasal cannula I talked to him about going to rehab and he looks agreeable for short-term. Patient remains on IV Lasix, IV Solu-Medrol and Zosyn which can't be switched to oral antibiotics upon discharge Hypokalemia would be replaced per protocol We will follow-up with the neurologist if any further recommendation, discussed with the staff 03/07/2022 patient clinically doing well, he denies any specific symptoms, his mentation is back to baseline. Vitals and labs are reviewed and looks stable, low potassium and magnesium replaced Patient remains on IV Lasix, IV Solu-Medrol, Zosyn. Also is on Keppra Pending lumbar puncture recommended by neurologist Heparin placed on hold for lumbar puncture, discussed with the staff. Last dose received 03/06/2022 03/08/2022 Patient awake alert, no chest pain no dyspnea. Patient had lumbar puncture yesterday, he denies any back pain today he told me he was able to walk to the bathroom by himself using the walker with no difficulty. No new weakness or numbness. However the patient informed me that he had bloody bowel movement, I discussed with the staff and the patient on the same but it was not witnessed. Therefore we going to order occult blood in stool and anemia workup. Hemoglobin today was 10.1 compared to 10.[address] the [address] anemia workup. CSF culture pending, currently on Zosyn and she is switched to Augmentin upon discharge. Also patient men's on IV Lasix 40 mg twice daily, Solu-Medrol 60 mg, and Zosyn. We change her Pepcid to Protonix today. Patient also on aspirin 81 mg added during this admission. Discontinue subcutaneous heparin for possible GI bleed Objective - Vital Signs Vital signs: Vital Signs Temp 98.2 F 03/08/22 11:30 Pulse 70 03/08/22 11:30 Resp 16 03/08/22 11:30 BP 117/62 03/08/22 11:30 Pulse Ox 95 03/08/22 11:30 FiO2 40 02/27/22 15:56 Intake & Output 03/07/22 03/08/22 03/08/22 18:59 06:59 18:59 Intake Total 240 10 240 Output Total 2400 1100 1100 Balance -2160 -1090 -860 Weight 58.967 kg Intake: IV 10 Invasive Line 7 10 Oral 240 240 Output: Urine 2400 1100 1100 Other: Voiding Method Urinal Urinal # Bowel Movements 1 - Exam -GENERAL: The patient is alert and oriented x3, not in any acute distress. Well developed, well nourished. Generally weak HEENT: Pupils are round and equally reacting to light. EOMI. No scleral icterus. No conjunctival pallor. Normocephalic, atraumatic. No pharyngeal erythema. No thyromegaly. CARDIOVASCULAR: S1 and S2 present. No murmurs, rubs, or gallops. PULMONARY: Chest is clear to auscultation, no wheezing or crackles. ABDOMEN: Soft, nontender, nondistended, normoactive bowel sounds. No palpable organomegaly. MUSCULOSKELETAL: No joint swelling or deformity. EXTREMITIES: No cyanosis, clubbing, or pedal edema. NEUROLOGICAL: Gross neurological examination did not reveal any focal deficits. SKIN: No rashes. no petechiae. - Labs CBC & Chem 7: 03/08/22 06:35 03/07/22 07:04 Labs: Abnormal Lab Results - Last 24 Hours (Table) 03/07/22 03/07/22 03/07/22 Range/Units 11:49 12:18 16:56 RBC (4.30-5.90) m/uL Hgb (13.0-17.5) gm/dL Hct (39.0-53.0) % POC Glucose (mg/dL) 125 H 187 H (70-110) mg/dL CSF RBC 156 H (0-10) u/L CSF Glucose 86 H (40-70) mg/dL CSF Total Protein 69 H (12-60) mg/dL 03/07/22 03/08/22 03/08/22 Range/Units 20:08 05:59 06:35 RBC 3.37 L (4.30-5.90) m/uL Hgb 10.1 L (13.0-17.5) gm/dL Hct 30.9 L (39.0-53.0) % POC Glucose (mg/dL) 229 H 139 H (70-110) mg/dL CSF RBC (0-10) u/L CSF Glucose (40-70) mg/dL CSF Total Protein (12-60) mg/dL 03/08/22 Range/Units 11:29 RBC (4.30-5.90) m/uL Hgb (13.0-17.5) gm/dL Hct (39.0-53.0) % POC Glucose (mg/dL) 271 H (70-110) mg/dL CSF RBC (0-10) u/L CSF Glucose (40-70) mg/dL CSF Total Protein (12-60) mg/dL Microbiology - Last 24 Hours (Table) 03/07/22 11:49 CSF Gram Stain - Preliminary Cerebral Spinal Fluid CSF Culture - Preliminary Assessment and Plan Assessment: Acute Seizure disorder with hx of recurrent seizures. Noncompliant with medications. Bilateral upper lobe pneumonia concerning for aspiration pneumonia Sepsis secondary above Severe lactic acidosis 7.9 on admission, resolved Acute hypoxemic respiratory failure was on BIPAP currently requiring 2L nasal cannula hyponatremia Alcohol abuse History of marijuana use Ongoing nicotine addiction Coagulase-negative staph aureus bacteremia likely contamination Hypertension Sinus tachycardia Chronic lower extremity skin changes/wounds. Plan: Follow-up culture of CSF Anemia workup and monitor hemoglobin. Start Protonix Neurologist service on the case Neurologist recommended short-term follow-up MRI Continue with Keppra Continue with blood pressure medication Continue with Lasix. Continue Zosyn Cardiology team, infectious disease and pulmonary team already sent of the case. Labs and medication were reviewed.. Continue same treatment. Continue with symptomatic treatment. Resume home medication. Monitor labs and vitals. DVT and GI prophylaxis. Further recommendations as per clinical course of the patient DVT prophylaxis: Subcutaneous heparin, on hold secondary to possible GI bleed GI Prophylaxis: Ppi PT/OT: Pending Prognosis is guarded
--- NOTE | 2022-03-08 12:07 | P.PN ---
Subjective Progress Note Date: 03/07/22 Patient was seen for a follow-up. Patient is laying comfortably in the bed. Denies any headache, no numbness or tingling or visual problems. Offers no complaints. Wants to go home. No further seizures reported. Patient admits to drinking only 1 or 2 beers per day. Denies excessive alcoholism. Telemetry monitoring showing sinus rhythm, sinus bradycardia, in the 50s. PSVT in 160. Objective - Vital Signs Vital signs: Vital Signs Temp 98.1 F 03/07/22 15:48 Pulse 64 03/07/22 15:48 Resp 18 03/07/22 15:48 BP 111/64 03/07/22 15:48 Pulse Ox 92 L 03/07/22 15:48 FiO2 40 02/27/22 15:56 Intake & Output 03/06/22 03/07/22 03/07/22 18:59 06:59 18:59 Intake Total 240 120 Output Total 800 1150 1800 Balance -560 -3600 -3170 Intake: Oral 240 120 Output: Urine 800 1150 1800 Other: Voiding Method Urinal Urinal Urinal # Bowel Movements 1 - Exam Patient is alert and awake, appears much more normal mentation. Patient states it is February 2022. He knows he is in [facility] and name of the current president Mr. King. Speech is slightly hoarse. No aphasia or dysarthria. Cranial nerve shows visual wang are full. Face is symmetric and tongue protrudes the midline. Muscle strength is normal in the arms and legs except hip flexion which is 5- bilaterally. Left shoulder is weak related to arthritic change. - Labs CBC & Chem 7: 03/08/22 06:35 03/07/22 07:04 Labs: Abnormal Lab Results - Last 24 Hours (Table) 03/06/22 03/07/22 03/07/22 Range/Units 20:10 05:54 07:04 Sodium 132 L (137-145) mmol/L Potassium 3.4 L (3.5-5.1) mmol/L Chloride 91 L (98-107) mmol/L Carbon Dioxide 40 H (22-30) mmol/L Creatinine 0.48 L (0.66-1.25) mg/dL Glucose 121 H (74-99) mg/dL POC Glucose (mg/dL) 215 H 139 H (70-110) mg/dL Calcium 7.2 L (8.4-10.2) mg/dL CSF RBC (0-10) u/L CSF Glucose (40-70) mg/dL CSF Total Protein (12-60) mg/dL 03/07/22 03/07/22 Range/Units 11:49 12:18 Sodium (137-145) mmol/L Potassium (3.5-5.1) mmol/L Chloride (98-107) mmol/L Carbon Dioxide (22-30) mmol/L Creatinine (0.66-1.25) mg/dL Glucose (74-99) mg/dL POC Glucose (mg/dL) 125 H (70-110) mg/dL Calcium (8.4-10.2) mg/dL CSF RBC 156 H (0-10) u/L CSF Glucose 86 H (40-70) mg/dL CSF Total Protein 69 H (12-60) mg/dL Microbiology - Last 24 Hours (Table) 03/07/22 11:49 CSF Gram Stain - Preliminary Cerebral Spinal Fluid CSF Culture - Preliminary Assessment and Plan Assessment: * Seizure disorder, came with recurrent seizures (3). Seizures aborted with Versed 5 mg IV push. * Abnormal brain MRI, with abnormal signal with restricted diffusion in the right hippocampus and uncus. Probably favors sequela of patient's seizure. * History of alcoholism. Patient at present denies any regular alcoholism. He states that he just drinks 1-2 beers per night. Patient also takes Klonopin regularly, denies running out of it. No obvious cause/provoking factor identified for the seizure. * Dysphagia. * Pneumonia * Bacteremia with staph coagulase-negative, felt to be contaminant-per ID. * Feet ulcers * Tobacco use * Marijuana use * Coronary artery disease Plan: * Continue Keppra. Patient has received a loading dose of Keppra 2000 mg in the ER, and will be maintained on Keppra 1000 mg twice a day. * Dysphagia is of unclear cause. Possible CVA. MRI of the brain did reveal abnormal signal suspicious for seizure related versus CVA. * EEG was abnormal due to presence of low amplitude sharp-appearing waves in the right frontotemporal region. This may suggest underlying cortical irrit ability and tendency for seizures. No electrographic seizure was recorded. * MRI of the brain without contrast revealed right hippocampus and uncus restricted diffusion is favored to represent sequela of patient's seizure. Other differential includes mesial temporal sclerosis, however it is felt to be less likely given no significant atrophic changes. Other etiologies in clude limbic encephalitis. Short-term follow-up MRI is recommended. I personally reviewed MRI, agree with the findings. * Start aspirin 81 mg daily, as there is abnormal signal on DWI in the right hi ppocampus. * 2-D echo from 03/24/2021 revealed normal left ventricular size, moderate concentric LVH. EF is mild to moderately impaired 40-45%. Normal left atrial size. Mild aortic valve sclerosis with trace to mild AR. * Carotid Doppler revealed less than 50% stenosis of bilateral carotid bifurcation. Antegrade flow right vertebral artery. Left vertebral unable to visualize. * Lumbar puncture performed today, with WBC count 0, RBC 156, CSF glucose 86 and CSF protein 69(12-60). No evidence of encephalitis. CSF viral cultures p ending. * NMDA antibodies < 1:10, which is normal/negative. * For pneumonia, patient currently on Zosyn. ID following. * No driving, climbing ladders, operating dangerous machineries or swimming. * Recommended abstinence from alcoholism, marijuana and tobacco use. * Neurologically clear for discharge.
--- NOTE | 2022-03-08 12:33 | P.PN ---
Subjective Progress Note Date: 03/08/22 61-year-old male who presents to the emergency room on February 21, via EMS, for possible seizure. The patient has a history of chronic alcohol abuse, and chronic foot wounds. He apparently does have a history of seizure disorder, and is apparently noncompliant with his seizure medications. He apparently presented to the emergency department with acute onset of seizure, earlier on the day of admission, which was February 21. He apparently had 3 different seizure episodes within one hour. When EMS arrived, he apparently was actively seizing. They administered 5 mg of IV Versed, and the seizure stopped. The patient was apparently postictal after that. Since being in the emergency department, the patient has been improving neurologically. He was on BiPAP for a short period of time with settings of 15/5 and 60%, up until about 3:00 in the morning. Now he is on between 6-7 L of nasal oxygen. He is getting saline at keep vein open. Current vital signs include sinus tachycardia with a rate of 138, blood pressure 116/85 respiratory rate 22 and saturations 90-92%. White count 26.4, hemoglobin 13.5, hematocrit 43.6, and platelet count was normal. Most recent blood gases show pO2 71, pCO2 47, and a pH is 7.26. That was on BiPAP at 60%. Troponin was 0.030. Initial pH was 7.12. Sodium 124, potassium 4.9, chlorides 96, CO2 19, BUN 6, creatinine 0.66. Urine screen was positive f or benzodiazepines, and marijuana. Chest x-ray shows patchy airspace disease in the left hilar region, consistent with possible aspiration pneumonia. The patient is seen today 02/23/2022 in follow-up on the selective care unit. He is currently resting fairly comfortably in bed. Somewhat lethargic. He is on BiPAP 15/5 and 60% FiO2 with O2 saturations in the 90s. EEG revealed possible low amplitude sharp appearing waves in the right frontotemporal region. This may suggest underlying cortical irritability intensive for seizures. No seizures were recorded. Blood cultures positive for coag-negative staph. Urine culture negative. White count 21.1. Hemoglobin 12.4. Platelets 331. Sodium 138. Potassium 4.8. BUN 7. Creatinine 0.52. AST 39. ALT 18. He is continued on bronchodilators and Zosyn. Heparin for DVT prophylaxis. Remains in the CIWA protocol. Remains on Keppra. The patient seen today 02/24/2022 in follow-up on the selective care unit. He is currently sitting up in bed. More awake and arousable. Currently on 5 L high flow nasal cannula. He has been alternating with BiPAP 15/5 and 60% FiO2. He has normal saline at 50 MLS per hour. Maintained on Zosyn. Bronchodilators. Heparin for DVT prophylaxis. No seizure activity. Remains in CIWA protocol. Last Ativan requirement at 4 AM this morning. The cultures positive for coag- negative staph. White count 15.4. Hemoglobin 11.1. Platelets 325. Sodium 139. Potassium 3.8. BUN 9. Creatinine 0.75. The patient is seen today 02/25/2022 in follow-up on the selective care unit. He is more awake and alert today. Denies any worsening shortness of breath, cough or congestion. Currently maintaining O2 saturations in the 90s on 5 L/m per nasal cannula. He had initially been on BiPAP 5 over 5 and 60% FiO2. Chest x-ray revealed worsening scattered airspace opacities with a new right lower lobe collapse. MRI of the brain revealed right hippocampus and fungus restricted diffusion favoring sequela patient seizure. Generalized atrophy changes and mild nonspecific white matter changes secondary to small vessel ischemic disease. Moderate paranasal sinus disease. Carotid Dopplers revealed less than 50% stenosis bilaterally. Blood cultures revealed coag-negative staph. White count 11.8. Hemoglobin 11.2. Sodium 143. Potassium 3.9. BUN 12. Creatinine 0.57. He remains on DuoNeb inhalations. Antibiotics in the form of Zosyn. Heparin for DVT prophylaxis. Remains on Keppra. Normal saline at 100 ML's per hour. No seizure activity. The patient is seen today 02/26/2022 in follow-up on the selective care unit. He is currently resting comfortably in bed. Awake and alert in no acute distress. He is maintaining O2 saturations in the 90s on 5 L/m per nasal cannula. D545 at 75 ML's per hour. He is continued on bronchodilators. Continue on heparin for DVT prophylaxis. Remains on antibiotics in the form of Zosyn. Follow-up blood cultures revealing no growth. Urine culture revealed no growth. No seizure activity. The patient is seen today 02/27/2022 in follow-up on the selective care unit. He is sitting up in bed. Awake and alert in no acute distress. Currently on Bi PAP 15/5 on 40% FiO2 alternating with 5 L high flow nasal cannula. Receiving D5 W at 50 MLS per hour Follow-up blood cultures revealed no growth. Sodium 143. Potassium 4.8. Chloride 116. BUN 13. Creatinine 0.51. Glucose 103. The plan is for a barium swallow today. She remains on bronchodilators, Zosyn, heparin for DVT prophylaxis. Continue to CIWA protocol. No seizures noted. The patient is seen today 02/28/2022 in follow-up on the selective care unit. He is sitting up in bed. Awake and alert in no acute distress. Currently maintaining O2 saturations in the 90s on 2 L/m per nasal cannula. His main complaint is that of fatigue. No worsening shortness of breath, cough or conge stion. No seizure activity. He's been afebrile. Hemodynamically stable. Chest x-ray reveals moderate central vascular congestion with small to moderate right pleural effusion and tiny left pleural effusion. He has D5W at 75 mL per hour. Follow-up blood culture reveals no growth. Urine culture revealed no growth. ProBNP 18,500. Has only been in a -135 mL balance. Currently on bronchodilators. Antibiotics in the form of Zosyn. Heparin for DVT prophylaxis. On 03/01/2022, the patient is being seen for a follow-up. Remains on O2 at 2 L and has a BiPAP at the bedside. Breath sounds are quite diminished bilaterally and the patient is a chronic smoker. No chest pain. He has a congested cough. No aspiration. The patient is on Lasix and the patient was switched to oral Lasix 20 mg by mouth daily. He has a incentive spirometer. He also has a flutter valve. IV fluids are in the form of normal saline at rate of 50 mL an hour. He has a chronic smoker. He is using DuoNeb nebulized treatments and this will be switched to [id number] every 4 hours. He is on heparin subcu for DVT prophylaxis. No other significant events otherwise for now. No seizure activity. He has chronic alcoholism in his been a chronic smoker. 03/02/2022, the patient remains on 2 L of oxygen by nasal cannula. Not utilizing the BiPAP. He has a flutter valve at the bedside and the patient and incentive spirometer. He remains on bronchodilators with DuoNeb about treatments [id number]. He had an echo of the heart yesterday and the patient was found to have a ejection fraction of 30% and LV's impaired. There is also evidence of apical septal and lateral inferior wall hypokinesis. RVSP 30. Mild aortic regurgitation and mitral regurgitation is also present. No evidence of any pericardial effusion. The follow-up chest x-ray that was done today shows cardiomegaly, effusions the lung bases and persistent right lower lobe opacification. The right mid and right lower lobe opacity is unchanged. The patient remains on IV Zosyn. 03/03/2022, the patient remains on 2 L of oxygen by nasal cannula. As mentioned, he has advanced COPD and cardiomyopathy also. There was a concern of his ongoing opacity in the right middle lobe/right lower lobe which has remained unchanged based on follow-up chest x-rays. Based on that, a CAT scan of the chest was ordered yesterday. Based on the CAT scan findings, the patient has moderate sized bilateral pleural effusion with compressive atelectasis of the right lung base. There is also areas of patchy infiltrates in the upper lobes. These areas of groundglass opacities in the upper lobes. However, predominant abnormality remains the bilateral pleural effusion which is moderate in size. At the same time, is complaining of difficulties in swallowing. He has developed some oropharyngeal candidiasis that'll be treated accordingly. The risk was a 10.3 with a hemoglobin of 11.6 and the BUN is at panel with a creatinine of 0.7. He remains on bronchodilators. Remains on steroids and is going to be tapered to prednisone burst taper. Obviously, the patient will need thoracentesis to give him symptomatic relief. On 03/04/2022, the patient remains on 2 L of oxygen by nasal cannula. Still quite lethargic. As mentioned yesterday, the patient was found to have bilateral pleural effusion moderate to large in size. I offered them thoracentesis. He declined. Based on that, he was started on diuretics and the patient is currently on a negative fluid balance. His BUN is at 30 with a creatinine of 0.5. The WBC count of 10.8. Is currently on Lasix at a dose of 40 mg IV every 12 hours. 03/05 2022, the patient is feeling fine. Is still not agreeable for thoracentesis. Will continue diuretics. Chest x-ray findings of essentially unchanged and the patient has bilateral pleural effusion on pulmonary vessel congestion. Nevertheless, he is in a negative fluid balance and overall he is improving. No new complaints otherwise for now.Blood work shows a hemoglobin of 11.1, WBC count of 10.4, platelets of 366, serum bicarbs of 45, sodium is at 136, potassium needs to be replaced at 2.8. The patient remains on Lasix and the patient is receiving Lasix 40 mg IV every 12 hours. He remains on IV Zosyn. The patient is seen today 03/06/2022 in follow-up on the selective care unit. He is currently sitting up in bed. Awake and alert in no acute distress. Maintaining good O2 saturations in the mid 90s on 2 L/m per nasal cannula. Afebrile. Hemodynamically stable. Recent chest x-ray reveals right lower lung airspace opacities. Some blunting of the left costophrenic angles. No significant change. Evidence of COPD. Follow-up will cultures revealed no growth. Urine culture revealed no growth. White count 9.0. Hemoglobin 10.6. Sodium 132. Potassium 2.6. Chloride 84. Bicarb 46. BUN 14. Creatinine 0.58. Glucose 133. Potassium is being replaced. Continued on bronchodilators, IV Solu-Medrol, Zosyn. Heparin for DVT prophylaxis. Continues on IV Lasix 40 mg every 12 hours. Currently in a -2.2 L balance. The patient is seen today 03/07/2022 in follow-up on selective care unit. He is awake and alert in no acute distress. Currently sitting up in bed. He is maintaining O2 saturations in the 90s on 2 L/m per nasal cannula. He denies any worsening shortness of breath, cough or congestion. Follow-up blood cultures revealing no growth. Sodium 132. Potassium 3.4. Bicarb 40. BUN 14. Creatinine 0.40. Glucose 121. He is continued on DuoNeb inhalations, IV Solu- Medrol and antibiotics in the form of Zosyn. Heparin for DVT prophylaxis. Continued on IV diuretics. Remains in a negative balance. No noted seizure activities. The patient is seen today 03/08/2022 in follow-up on the selective care unit. He is currently sitting up in bed. Awake and alert in no acute distress. He denies any worsening shortness of breath, cough or congestion. Maintaining O2 saturations in the mid 90s on 2 L/m per nasal cannula. He's been afebrile. Hemodynamically stable. Chest x-ray reveals improved right lower lobe airspace opacities in the right pleural effusion. Trace left effusion. COPD changes. Follow-up blood cultures revealed no growth. Urine culture reveals no growth. Cerebral spinal fluid culture pending. CSF analysis revealed clear colorless fluid with 86 glucose. 69 protein. 156 RBCs. He count 10.5. Hemoglobin 10.1. He is continued on DuoNeb inhalations, IV Solu-Medrol, Zosyn. Remains on IV diuretics. Currently in a -3.2 L balance. Objective - Vital Signs Vital signs: Vital Signs Temp 98.2 F 03/08/22 11:30 Pulse 70 03/08/22 11:30 Resp 16 03/08/22 11:30 BP 117/62 03/08/22 11:30 Pulse Ox 95 03/08/22 11:30 FiO2 40 02/27/22 15:56 Intake & Output 03/07/22 03/08/22 03/08/22 18:59 06:59 18:59 Intake Total 240 10 240 Output Total 2400 1100 1100 Balance -2160 -1090 -860 Weight 58.967 kg Intake: IV 10 Invasive Line 7 10 Oral 240 240 Output: Urine 2400 1100 1100 Other: Voiding Method Urinal Urinal # Bowel Movements 1 - Exam GENERAL EXAM: Awake, alert, 61-year-old male, sitting up in bed, on 2 L nasal cannula, comfortable in no apparent distress. HEAD: Normocephalic. EYES: Normal reaction of pupils, equal size. NOSE: Clear with pink turbinates. THROAT: No erythema or exudates. NECK: No masses, no JVD. CHEST: No chest wall deformity. LUNGS: Equal air entry with bilateral crackles in the bases right greater than left. CVS: S1 and S2 normal with no audible murmur, regular rhythm. ABDOMEN: No hepatosplenomegaly, normal bowel sounds, no guarding or rigidity. SPINE: No scoliosis or deformity SKIN: No rashes CENTRAL NERVOUS SYSTEM: Alert, tone is normal in all 4 extremities. EXTREMITIES: Scaly patches on the bottom of the feet. There is no peripheral e ginny. No clubbing, no cyanosis. Peripheral pulses are intact. - Labs CBC & Chem 7: 03/08/22 06:35 03/07/22 07:04 Labs: Abnormal Lab Results - Last 24 Hours (Table) 03/07/22 03/07/22 03/07/22 Range/Units 11:49 16:56 20:08 RBC (4.30-5.90) m/uL Hgb (13.0-17.5) gm/dL Hct (39.0-53.0) % POC Glucose (mg/dL) 187 H 229 H (70-110) mg/dL CSF RBC 156 H (0-10) u/L CSF Glucose 86 H (40-70) mg/dL CSF Total Protein 69 H (12-60) mg/dL 03/08/22 03/08/22 03/08/22 Range/Units 05:59 06:35 11:29 RBC 3.37 L (4.30-5.90) m/uL Hgb 10.1 L (13.0-17.5) gm/dL Hct 30.9 L (39.0-53.0) % POC Glucose (mg/dL) 139 H 271 H (70-110) mg/dL CSF RBC (0-10) u/L CSF Glucose (40-70) mg/dL CSF Total Protein (12-60) mg/dL Microbiology - Last 24 Hours (Table) 03/07/22 11:49 CSF Gram Stain - Preliminary Cerebral Spinal Fluid CSF Culture - Preliminary Assessment and Plan Assessment: Recurrent seizure activity, and the patient noncompliant with epilepsy medications. MRI of the brain revealed right hippocampus and uncus restricted diffusion favoring sequela of patient's seizures. Cerebrospinal fluid from 03/07/2022 reveals a glucose of 89 and a protein of C9. Clear, colorless. Cultures pending. Acute hypoxemic respiratory failure secondary to suspected aspiration pneumonia, with increasing right lower lobe collapse. Barium swallow from 02/27/2022 revealed no penetration or aspiration identified. The patient has bilateral pleural effusion moderate in size more so on the right and passive atelectasis of the lung base in addition to some areas of patchy groundglass pulmonary infiltrates. Suspect transudative effusion secondary to CHF. Stable on 2 L [place] cannula. Diuresing well. Acute exacerbation of chronic systolic congestive heart failure with previous echocardiogram revealing ejection fraction of 40-45%, proBNP greater than 18,000 History of chronic tobacco use and nicotine dependence. History of hypertension. History of chronic alcohol abuse. History of marijuana use. Chronic wounds, lower extremities. Plan: The patient was seen and evaluated X-ray, labs and medications reviewed Improved and on 2 L nasal cannula Transitioned to oral diuretics Transitioned to oral prednisone Antibiotics are ID service is Clear for discharge from the pulmonary standpoint I have personally seen and examined the patient, performed the documentation and the assessment and plan as written. Number of minutes spent on the visit: 10.
[2022-03-08 13:50] LABS: African American GFR (CKD) >90 (>60 ml/min/1.73 sqM); Anion Gap 1 mmol/L; Blood Urea Nitrogen 15 mg/dL (9-20); Calcium 7.4 mg/dL (8.4-10.2); Chloride 86 mmol/L (98-107); Glucose 129 mg/dL (74-99); Non-African American GFR(CKD) >90 (>60 ml/min/1.73 sqM); Potassium 3.3 mmol/L (3.5-5.1); Sodium 127 mmol/L (137-145)
[2022-03-08 14:24] LABS: Carbon Dioxide 39 mmol/L (22-30)
[2022-03-08 16:28] LABS: % Iron Saturation 22.2 (15.00-50.00); Ferritin 97.8 ng/mL (22.0-322.0)
[2022-03-08] MEDS: POTASSIUM CHLORIDE ER 20 MEQ TAB.ER PO SCH ×2 (16:56→18:47)
[2022-03-08 16:59] LABS: Glucose,Whole Blood 137 mg/dL (70-110)
--- NOTE | 2022-03-08 19:09 | P.PN ---
Subjective Progress Note Date: 03/08/22 Principal diagnosis: Aspiration pneumonia Patient is a 61-year-old male with a past medical history significant for chronic on both abuse seizure disorder noncompliant with his seizure medication patient was brought into the ER with acute onset of seizure , patient did have elevated white count and evidence of multifocal infiltrating mostly in the left perihilar region concerning for possible aspiration pneumonia. On today's evaluation that is 03/08/2022, the patient continues to be afebrile, the patient is breathing comfortably on 2 L nasal cannula , the patient denies any chest pain , the patient cough has decreased in intensity and is not bringing up any sputum, the patient denies any nausea or vomiting no abdominal pain or diarrhea, patient mentioned feeling better and wants to go home Objective - Vital Signs Vital signs: Vital Signs Temp 98.2 F 03/08/22 11:30 Pulse 70 03/08/22 11:30 Resp 16 03/08/22 11:30 BP 117/62 03/08/22 11:30 Pulse Ox 95 03/08/22 11:30 FiO2 40 02/27/22 15:56 Intake & Output 03/07/22 03/08/22 03/08/22 18:59 06:59 18:59 Intake Total 240 10 240 Output Total 2400 1100 1100 Balance -2160 -1090 -860 Weight 58.967 kg Intake: IV 10 Invasive Line 7 10 Oral 240 240 Output: Urine 2400 1100 1100 Other: Voiding Method Urinal Urinal # Bowel Movements 1 - Exam GENERAL DESCRIPTION: Middle-aged male lying in bed in no distress RESPIRATORY SYSTEM: Unlabored breathing , decreased breath sounds at bases HEART: S1 S2 regular rate and rhythm , ABDOMEN: Soft , no tenderness EXTREMITIES: No edema feet - Labs CBC & Chem 7: 03/08/22 06:35 03/08/22 06:35 Labs: Abnormal Lab Results - Last 24 Hours (Table) 03/07/22 03/07/22 03/07/22 Range/Units 11:49 12:18 16:56 RBC (4.30-5.90) m/uL Hgb (13.0-17.5) gm/dL Hct (39.0-53.0) % POC Glucose (mg/dL) 125 H 187 H (70-110) mg/dL CSF RBC 156 H (0-10) u/L CSF Glucose 86 H (40-70) mg/dL CSF Total Protein 69 H (12-60) mg/dL 03/07/22 03/08/22 03/08/22 Range/Units 20:08 05:59 06:35 RBC 3.37 L (4.30-5.90) m/uL Hgb 10.1 L (13.0-17.5) gm/dL Hct 30.9 L (39.0-53.0) % POC Glucose (mg/dL) 229 H 139 H (70-110) mg/dL CSF RBC (0-10) u/L CSF Glucose (40-70) mg/dL CSF Total Protein (12-60) mg/dL 03/08/22 Range/Units 11:29 RBC (4.30-5.90) m/uL Hgb (13.0-17.5) gm/dL Hct (39.0-53.0) % POC Glucose (mg/dL) 271 H (70-110) mg/dL CSF RBC (0-10) u/L CSF Glucose (40-70) mg/dL CSF Total Protein (12-60) mg/dL Microbiology - Last 24 Hours (Table) 03/07/22 11:49 CSF Gram Stain - Preliminary Cerebral Spinal Fluid CSF Culture - Preliminary Assessment and Plan (1) Pneumonia Current Visit: Yes Status: Acute Code(s): J18.9 - PNEUMONIA, UNSPECIFIED ORGANISM SNOMED Code(s): 157954797 Plan: 1patient presented to hospital with active seizures in this patient now with evidence of multifocal pneumonia mostly left perihilar region did have elevated vital concerning for pneumonia of aspiration etiology. 2positive blood culture finalized as staph epi likely skin contamination blood cultures repeated 02/25/2022 so far negative. 3patient has shown clinical improvement the patient is afebrile and white count is normal, patient currently being treated with the Zosyn however plan to finish therapy with oral Augmentin Time with Patient: Less than 30
[2022-03-08 20:11] LABS: Glucose,Whole Blood 219 mg/dL (70-110)
[2022-03-08] MEDS ORDERED: bisacodyL 10 MG SUPP RECTAL STA (20:19)
[2022-03-08] MEDS ORDERED: bisacodyL 5 MG TABLET.DR PO STA (21:17)
--- NOTE | 2022-03-08 22:55 | P.PN ---
Subjective Progress Note Date: 03/08/22 Patient was seen for a follow-up. Patient is laying comfortably in the bed. Denies any headache, no numbness or tingling or visual problems. Offers no complaints. Patient's dysphagia has resolved. No further seizures reported. Patient admits to drinking only 1 or 2 beers per day. Denies excessive alcoholism. Telemetry monitoring showing sinus rhythm, sinus bradycardia, sometimes sinus tachycardia. No other arrhythmia. Objective - Vital Signs Vital signs: Vital Signs Temp 97.8 F 03/08/22 15:35 Pulse 74 03/08/22 20:23 Resp 17 03/08/22 15:35 BP 110/67 03/08/22 15:35 Pulse Ox 97 03/08/22 15:35 FiO2 40 02/27/22 15:56 Intake & Output 03/08/22 03/08/22 03/09/22 06:59 18:59 06:59 Intake Total 10 580 Output Total 1100 1100 Balance -1090 -520 Weight 58.967 kg Intake: IV 10 Invasive Line 7 10 Intake, IV Titration 100 Amount Piperacillin-Tazobactam 3 100 .375 gm In Sodium Chloride 0.9% 100 ml @ 25 mls/hr IVPB Q8HR [facility] Rx# :[id number] Oral 480 Output: Urine 1100 1100 Other: Voiding Method Urinal # Bowel Movements 1 - Exam Patient is alert and awake, appears much more normal mentation. Patient states it is February 2022. He knows he is in [facility] and name of the current president Mr. King. Speech is slightly hoarse. No aphasia or dysarthria. Cranial nerve shows visual wang are full. Face is symmetric and tongue protrudes the midline. Muscle strength is normal in the arms and legs except hip flexion which is 5- bilaterally. Left shoulder is weak related to arthritic change. - Labs CBC & Chem 7: 03/08/22 06:35 03/08/22 06:35 Labs: Abnormal Lab Results - Last 24 Hours (Table) 03/08/22 03/08/22 03/08/22 Range/Units 05:59 06:35 06:35 RBC 3.37 L (4.30-5.90) m/uL Hgb 10.1 L (13.0-17.5) gm/dL Hct 30.9 L (39.0-53.0) % Sodium 127 L (137-145) mmol/L Potassium 3.3 L (3.5-5.1) mmol/L Chloride 86 L (98-107) mmol/L Carbon Dioxide 39 H (22-30) mmol/L Creatinine 0.65 L (0.66-1.25) mg/dL Glucose 129 H (74-99) mg/dL POC Glucose (mg/dL) 139 H (70-110) mg/dL Calcium 7.4 L (8.4-10.2) mg/dL 03/08/22 03/08/22 03/08/22 Range/Units 11:29 16:44 20:10 RBC (4.30-5.90) m/uL Hgb (13.0-17.5) gm/dL Hct (39.0-53.0) % Sodium (137-145) mmol/L Potassium (3.5-5.1) mmol/L Chloride (98-107) mmol/L Carbon Dioxide (22-30) mmol/L Creatinine (0.66-1.25) mg/dL Glucose (74-99) mg/dL POC Glucose (mg/dL) 271 H 137 H 219 H (70-110) mg/dL Calcium (8.4-10.2) mg/dL Microbiology - Last 24 Hours (Table) 03/07/22 11:49 CSF Gram Stain - Preliminary Cerebral Spinal Fluid CSF Culture - Preliminary Assessment and Plan Assessment: * Seizure disorder, came with recurrent seizures (3). Seizures aborted with Versed 5 mg IV push. * Abnormal brain MRI, with abnormal signal with restricted diffusion in the right hippocampus and uncus. Probably favors sequela of patient's seizure. * History of alcoholism. Patient at present denies any regular alcoholism. He states that he just drinks 1-2 beers per night. Patient also takes Klonopin regularly, denies running out of it. No obvious cause/provoking factor identified for the seizure. * Dysphagia, resolved. * Pneumonia * Bacteremia with staph coagulase-negative, felt to be contaminant-per ID. * Feet ulcers * Tobacco use * Marijuana use * Coronary artery disease Plan: * Continue Keppra. Patient has received a loading dose of Keppra 2000 mg in the ER, and will be maintained on Keppra 1000 mg twice a day. * Dysphagia has resolved. * EEG was abnormal due to presence of low amplitude sharp-appearing waves in the right frontotemporal region. This may suggest underlying cortical irritability and tendency for seizures. No electrographic seizure was recorded. * MRI of the brain without contrast revealed right hippocampus and uncus restricted diffusion is favored to represent sequela of patient's seizure. Other differential includes mesial temporal sclerosis, however it is felt to be less likely given no significant atrophic changes. Other etiologies include limbic encephalitis. Short-term follow-up MRI is recommended. I personally reviewed MRI, agree with the findings. * Start aspirin 81 mg daily, as there is abnormal signal on DWI in the right hippocampus. * 2-D echo from 03/24/2021 revealed normal left ventricular size, moderate concentric LVH. EF is mild to moderately impaired 40-45%. Normal left atrial size. Mild aortic valve sclerosis with trace to mild AR. * Carotid Doppler revealed less than 50% stenosis of bilateral carotid bifurcation. Antegrade flow right vertebral artery. Left vertebral unable to visualize. * Lumbar puncture performed today, with WBC count 0, RBC 156, CSF glucose 86 and CSF protein 69(12-60). No evidence of encephalitis. CSF viral cultures negative. * NMDA antibodies < 1:10, which is normal/negative. * For pneumonia, patient currently on Zosyn. ID following. * No driving, climbing ladders, operating dangerous machineries or swimming. * Recommended abstinence from alcoholism, marijuana and tobacco use. * Neurologically clear for discharge. Discussed with Dr. Zepeda
[2022-03-09] MEDS: PIPERACILLIN-TAZOBACTAM 3.375 GM in SODIUM CHLORIDE 0.9% 100 ML IVPB SCH ×4 (01:33→23:36)
[2022-03-09 05:55] LABS: Glucose,Whole Blood 121 mg/dL (70-110)
[2022-03-09] MEDS: INSULIN ASPART (NovoLOG) 100 UNIT/ML VIAL SQ SCH ×4 (06:11→20:55)
[2022-03-09] MEDS: IPRATROPIUM-ALBUTEROL 3 ML NEB INHALATION SCH ×4 (08:01→19:46)
[2022-03-09 08:58] LABS: Basophils % (A) 0 %; Eosinophils % (A) 0 %; HCT 36.8 % (39.0-53.0); HGB 11.4 gm/dL (13.0-17.5); Lymphocytes # (A) 1.3 k/uL (1.0-4.8); Lymphocytes % (A) 9 %; MCH 28.2 pg (25.0-35.0); MCV 90.9 fL (80.0-100.0); Mean Platelet Volume 8.7; Monocytes # (A) 0.9 k/uL (0-1.0); Monocytes % (A) 6 %; Neutrophils # (A) 11.3 k/uL (1.3-7.7); Neutrophils % (A) 82 %; Platelet Count 402 k/uL (150-450); RBC 4.04 m/uL (4.30-5.90); RDW 13.5 % (11.5-15.5); WBC 13.7 k/uL (3.8-10.6)
[2022-03-09 09:17] LABS: African American GFR (CKD) >90 (>60 ml/min/1.73 sqM); Anion Gap 2 mmol/L; Blood Urea Nitrogen 11 mg/dL (9-20); Calcium 7.9 mg/dL (8.4-10.2); Carbon Dioxide 38 mmol/L (22-30); Chloride 90 mmol/L (98-107); Glucose 106 mg/dL (74-99); Non-African American GFR(CKD) >90 (>60 ml/min/1.73 sqM); Potassium 3.4 mmol/L (3.5-5.1); Sodium 130 mmol/L (137-145)
[2022-03-09] MEDS: PANTOPRAZOLE 40 MG/10 ML VIAL IVP SCH (10:29)
[2022-03-09] MEDS: levETIRAcetam 500 MG TAB PO SCH ×2 (10:30→20:52)
[2022-03-09] MEDS: FLUCONAZOLE 100 MG TAB PO SCH (10:30)
[2022-03-09] MEDS: METOPROLOL TARTRATE 50 MG TAB PO SCH ×2 (10:30→20:52)
[2022-03-09] MEDS: TAMSULOSIN 0.4 MG CAP.ER.24H PO SCH (10:30)
[2022-03-09] MEDS: predniSONE 20 MG TAB PO SCH (10:30)
[2022-03-09] MEDS: FUROSEMIDE 40 MG TAB PO SCH (10:30)
[2022-03-09] MEDS: ASPIRIN 81 MG PO SCH (10:31)
[2022-03-09] MEDS: THIAMINE 100 MG TAB PO SCH (10:31)
--- NOTE | 2022-03-09 11:24 | P.PN ---
Subjective Progress Note Date: 03/09/22 61-year-old male who presents to the emergency room on February 21, via EMS, for possible seizure. The patient has a history of chronic alcohol abuse, and chronic foot wounds. He apparently does have a history of seizure disorder, and is apparently noncompliant with his seizure medications. He apparently presented to the emergency department with acute onset of seizure, earlier on the day of admission, which was February 21. He apparently had 3 different seizure episodes within one hour. When EMS arrived, he apparently was actively seizing. They administered 5 mg of IV Versed, and the seizure stopped. The patient was apparently postictal after that. Since being in the emergency department, the patient has been improving neurologically. He was on BiPAP for a short period of time with settings of 15/5 and 60%, up until about 3:00 in the morning. Now he is on between 6-7 L of nasal oxygen. He is getting saline at keep vein open. Current vital signs include sinus tachycardia with a rate of 138, blood pressure 116/85 respiratory rate 22 and saturations 90-92%. White count 26.4, hemoglobin 13.5, hematocrit 43.6, and platelet count was normal. Most recent blood gases show pO2 71, pCO2 47, and a pH is 7.26. That was on BiPAP at 60%. Troponin was 0.030. Initial pH was 7.12. Sodium 124, potassium 4.9, chlorides 96, CO2 19, BUN 6, creatinine 0.66. Urine screen was positive f or benzodiazepines, and marijuana. Chest x-ray shows patchy airspace disease in the left hilar region, consistent with possible aspiration pneumonia. The patient is seen today 02/23/2022 in follow-up on the selective care unit. He is currently resting fairly comfortably in bed. Somewhat lethargic. He is on BiPAP 15/5 and 60% FiO2 with O2 saturations in the 90s. EEG revealed possible low amplitude sharp appearing waves in the right frontotemporal region. This may suggest underlying cortical irritability intensive for seizures. No seizures were recorded. Blood cultures positive for coag-negative staph. Urine culture negative. White count 21.1. Hemoglobin 12.4. Platelets 331. Sodium 138. Potassium 4.8. BUN 7. Creatinine 0.52. AST 39. ALT 18. He is continued on bronchodilators and Zosyn. Heparin for DVT prophylaxis. Remains in the CIWA protocol. Remains on Keppra. The patient seen today 02/24/2022 in follow-up on the selective care unit. He is currently sitting up in bed. More awake and arousable. Currently on 5 L high flow nasal cannula. He has been alternating with BiPAP 15/5 and 60% FiO2. He has normal saline at 50 MLS per hour. Maintained on Zosyn. Bronchodilators. Heparin for DVT prophylaxis. No seizure activity. Remains in CIWA protocol. Last Ativan requirement at 4 AM this morning. The cultures positive for coag- negative staph. White count 15.4. Hemoglobin 11.1. Platelets 325. Sodium 139. Potassium 3.8. BUN 9. Creatinine 0.75. The patient is seen today 02/25/2022 in follow-up on the selective care unit. He is more awake and alert today. Denies any worsening shortness of breath, cough or congestion. Currently maintaining O2 saturations in the 90s on 5 L/m per nasal cannula. He had initially been on BiPAP 5 over 5 and 60% FiO2. Chest x-ray revealed worsening scattered airspace opacities with a new right lower lobe collapse. MRI of the brain revealed right hippocampus and fungus restricted diffusion favoring sequela patient seizure. Generalized atrophy changes and mild nonspecific white matter changes secondary to small vessel ischemic disease. Moderate paranasal sinus disease. Carotid Dopplers revealed less than 50% stenosis bilaterally. Blood cultures revealed coag-negative staph. White count 11.8. Hemoglobin 11.2. Sodium 143. Potassium 3.9. BUN 12. Creatinine 0.57. He remains on DuoNeb inhalations. Antibiotics in the form of Zosyn. Heparin for DVT prophylaxis. Remains on Keppra. Normal saline at 100 ML's per hour. No seizure activity. The patient is seen today 02/26/2022 in follow-up on the selective care unit. He is currently resting comfortably in bed. Awake and alert in no acute distress. He is maintaining O2 saturations in the 90s on 5 L/m per nasal cannula. D545 at 75 ML's per hour. He is continued on bronchodilators. Continue on heparin for DVT prophylaxis. Remains on antibiotics in the form of Zosyn. Follow-up blood cultures revealing no growth. Urine culture revealed no growth. No seizure activity. The patient is seen today 02/27/2022 in follow-up on the selective care unit. He is sitting up in bed. Awake and alert in no acute distress. Currently on Bi PAP 15/5 on 40% FiO2 alternating with 5 L high flow nasal cannula. Receiving D5 W at 50 MLS per hour Follow-up blood cultures revealed no growth. Sodium 143. Potassium 4.8. Chloride 116. BUN 13. Creatinine 0.51. Glucose 103. The plan is for a barium swallow today. She remains on bronchodilators, Zosyn, heparin for DVT prophylaxis. Continue to CIWA protocol. No seizures noted. The patient is seen today 02/28/2022 in follow-up on the selective care unit. He is sitting up in bed. Awake and alert in no acute distress. Currently maintaining O2 saturations in the 90s on 2 L/m per nasal cannula. His main complaint is that of fatigue. No worsening shortness of breath, cough or conge stion. No seizure activity. He's been afebrile. Hemodynamically stable. Chest x-ray reveals moderate central vascular congestion with small to moderate right pleural effusion and tiny left pleural effusion. He has D5W at 75 mL per hour. Follow-up blood culture reveals no growth. Urine culture revealed no growth. ProBNP 18,500. Has only been in a -135 mL balance. Currently on bronchodilators. Antibiotics in the form of Zosyn. Heparin for DVT prophylaxis. On 03/01/2022, the patient is being seen for a follow-up. Remains on O2 at 2 L and has a BiPAP at the bedside. Breath sounds are quite diminished bilaterally and the patient is a chronic smoker. No chest pain. He has a congested cough. No aspiration. The patient is on Lasix and the patient was switched to oral Lasix 20 mg by mouth daily. He has a incentive spirometer. He also has a flutter valve. IV fluids are in the form of normal saline at rate of 50 mL an hour. He has a chronic smoker. He is using DuoNeb nebulized treatments and this will be switched to [id number] every 4 hours. He is on heparin subcu for DVT prophylaxis. No other significant events otherwise for now. No seizure activity. He has chronic alcoholism in his been a chronic smoker. 03/02/2022, the patient remains on 2 L of oxygen by nasal cannula. Not utilizing the BiPAP. He has a flutter valve at the bedside and the patient and incentive spirometer. He remains on bronchodilators with DuoNeb about treatments [id number]. He had an echo of the heart yesterday and the patient was found to have a ejection fraction of 30% and LV's impaired. There is also evidence of apical septal and lateral inferior wall hypokinesis. RVSP 30. Mild aortic regurgitation and mitral regurgitation is also present. No evidence of any pericardial effusion. The follow-up chest x-ray that was done today shows cardiomegaly, effusions the lung bases and persistent right lower lobe opacification. The right mid and right lower lobe opacity is unchanged. The patient remains on IV Zosyn. 03/03/2022, the patient remains on 2 L of oxygen by nasal cannula. As mentioned, he has advanced COPD and cardiomyopathy also. There was a concern of his ongoing opacity in the right middle lobe/right lower lobe which has remained unchanged based on follow-up chest x-rays. Based on that, a CAT scan of the chest was ordered yesterday. Based on the CAT scan findings, the patient has moderate sized bilateral pleural effusion with compressive atelectasis of the right lung base. There is also areas of patchy infiltrates in the upper lobes. These areas of groundglass opacities in the upper lobes. However, predominant abnormality remains the bilateral pleural effusion which is moderate in size. At the same time, is complaining of difficulties in swallowing. He has developed some oropharyngeal candidiasis that'll be treated accordingly. The risk was a 10.3 with a hemoglobin of 11.6 and the BUN is at panel with a creatinine of 0.7. He remains on bronchodilators. Remains on steroids and is going to be tapered to prednisone burst taper. Obviously, the patient will need thoracentesis to give him symptomatic relief. On 03/04/2022, the patient remains on 2 L of oxygen by nasal cannula. Still quite lethargic. As mentioned yesterday, the patient was found to have bilateral pleural effusion moderate to large in size. I offered them thoracentesis. He declined. Based on that, he was started on diuretics and the patient is currently on a negative fluid balance. His BUN is at 30 with a creatinine of 0.5. The WBC count of 10.8. Is currently on Lasix at a dose of 40 mg IV every 12 hours. 03/05 2022, the patient is feeling fine. Is still not agreeable for thoracentesis. Will continue diuretics. Chest x-ray findings of essentially unchanged and the patient has bilateral pleural effusion on pulmonary vessel congestion. Nevertheless, he is in a negative fluid balance and overall he is improving. No new complaints otherwise for now.Blood work shows a hemoglobin of 11.1, WBC count of 10.4, platelets of 366, serum bicarbs of 45, sodium is at 136, potassium needs to be replaced at 2.8. The patient remains on Lasix and the patient is receiving Lasix 40 mg IV every 12 hours. He remains on IV Zosyn. The patient is seen today 03/06/2022 in follow-up on the selective care unit. He is currently sitting up in bed. Awake and alert in no acute distress. Maintaining good O2 saturations in the mid 90s on 2 L/m per nasal cannula. Afebrile. Hemodynamically stable. Recent chest x-ray reveals right lower lung airspace opacities. Some blunting of the left costophrenic angles. No significant change. Evidence of COPD. Follow-up will cultures revealed no growth. Urine culture revealed no growth. White count 9.0. Hemoglobin 10.6. Sodium 132. Potassium 2.6. Chloride 84. Bicarb 46. BUN 14. Creatinine 0.58. Glucose 133. Potassium is being replaced. Continued on bronchodilators, IV Solu-Medrol, Zosyn. Heparin for DVT prophylaxis. Continues on IV Lasix 40 mg every 12 hours. Currently in a -2.2 L balance. The patient is seen today 03/07/2022 in follow-up on selective care unit. He is awake and alert in no acute distress. Currently sitting up in bed. He is maintaining O2 saturations in the 90s on 2 L/m per nasal cannula. He denies any worsening shortness of breath, cough or congestion. Follow-up blood cultures revealing no growth. Sodium 132. Potassium 3.4. Bicarb 40. BUN 14. Creatinine 0.40. Glucose 121. He is continued on DuoNeb inhalations, IV Solu- Medrol and antibiotics in the form of Zosyn. Heparin for DVT prophylaxis. Continued on IV diuretics. Remains in a negative balance. No noted seizure activities. The patient is seen today 03/08/2022 in follow-up on the selective care unit. He is currently sitting up in bed. Awake and alert in no acute distress. He denies any worsening shortness of breath, cough or congestion. Maintaining O2 saturations in the mid 90s on 2 L/m per nasal cannula. He's been afebrile. Hemodynamically stable. Chest x-ray reveals improved right lower lobe airspace opacities in the right pleural effusion. Trace left effusion. COPD changes. Follow-up blood cultures revealed no growth. Urine culture reveals no growth. Cerebral spinal fluid culture pending. CSF analysis revealed clear colorless fluid with 86 glucose. 69 protein. 156 RBCs. He count 10.5. Hemoglobin 10.1. He is continued on DuoNeb inhalations, IV Solu-Medrol, Zosyn. Remains on IV diuretics. Currently in a -3.2 L balance. The patient is seen today 03/09/2022 in follow-up on the selective care unit. He is awake and alert in no acute distress. Resting quite comfortably in bed. He is continuing to maintain good O2 saturation in the 90s on 2 L/m per nasal cannula. He is afebrile. Hemodynamically stable. Cerebral spinal fluid cultures pending. Blood cultures reveal no growth. We count 13.7. Hemoglobin 11.4. Platelets 402. Sodium 130. Potassium 3.4. Chloride 90. Bicarb 30. BUN 11. Creatinine 0.48. Glucose 106. He is continued on bronchodilators, diuretics, prednisone and Zosyn. He remains on Keppra. No seizure activity. Currently in a -1.4 L balance. Objective - Vital Signs Vital signs: Vital Signs Temp 97.9 F 03/09/22 04:00 Pulse 69 03/09/22 04:00 Resp 18 03/09/22 04:00 BP 132/68 03/09/22 04:00 Pulse Ox 97 03/09/22 04:00 FiO2 40 02/27/22 15:56 Intake & Output 03/08/22 03/09/22 03/09/22 18:59 06:59 18:59 Intake Total 580 Output Total 1100 950 400 Balance -520 -950 -400 Weight 58.967 kg 63.2 kg Intake: Intake, IV Titration 100 Amount Piperacillin-Tazobactam 3 100 .375 gm In Sodium Chloride 0.9% 100 ml @ 25 mls/hr IVPB Q8HR [facility] Rx# :[id number] Oral 480 Output: Urine 1100 950 400 Other: Voiding Method Urinal - Exam GENERAL EXAM: Awake, alert, 61-year-old male, on 2 L nasal cannula, comfortable in no apparent distress. HEAD: Normocephalic. EYES: Normal reaction of pupils, equal size. NOSE: Clear with pink turbinates. THROAT: No erythema or exudates. NECK: No masses, no JVD. CHEST: No chest wall deformity. LUNGS: Equal air entry with bilateral crackles in the bases right greater than left. CVS: S1 and S2 normal with no audible murmur, regular rhythm. ABDOMEN: No hepatosplenomegaly, normal bowel sounds, no guarding or rigidity. SPINE: No scoliosis or deformity SKIN: No rashes CENTRAL NERVOUS SYSTEM: Alert, tone is normal in all 4 extremities. EXTREMITIES: Scaly patches on the bottom of the feet. There is no peripheral edema. No clubbing, no cyanosis. Peripheral pulses are intact. - Labs CBC & Chem 7: 03/09/22 08:12 03/09/22 08:12 Labs: Abnormal Lab Results - Last 24 Hours (Table) 03/08/22 03/08/22 03/08/22 Range/Units 06:35 11:29 16:44 WBC (3.8-10.6) k/uL RBC (4.30-5.90) m/uL Hgb (13.0-17.5) gm/dL Hct (39.0-53.0) % Neutrophils # (1.3-7.7) k/uL Sodium 127 L (137-145) mmol/L Potassium 3.3 L (3.5-5.1) mmol/L Chloride 86 L (98-107) mmol/L Carbon Dioxide 39 H (22-30) mmol/L Creatinine 0.65 L (0.66-1.25) mg/dL Glucose 129 H (74-99) mg/dL POC Glucose (mg/dL) 271 H 137 H (70-110) mg/dL Calcium 7.4 L (8.4-10.2) mg/dL 03/08/22 03/09/22 03/09/22 Range/Units 20:10 05:53 08:12 WBC 13.7 H (3.8-10.6) k/uL RBC 4.04 L (4.30-5.90) m/uL Hgb 11.4 L (13.0-17.5) gm/dL Hct 36.8 L (39.0-53.0) % Neutrophils # 11.3 H (1.3-7.7) k/uL Sodium (137-145) mmol/L Potassium (3.5-5.1) mmol/L Chloride (98-107) mmol/L Carbon Dioxide (22-30) mmol/L Creatinine (0.66-1.25) mg/dL Glucose (74-99) mg/dL POC Glucose (mg/dL) 219 H 121 H (70-110) mg/dL Calcium (8.4-10.2) mg/dL 03/09/22 Range/Units 08:12 WBC (3.8-10.6) k/uL RBC (4.30-5.90) m/uL Hgb (13.0-17.5) gm/dL Hct (39.0-53.0) % Neutrophils # (1.3-7.7) k/uL Sodium 130 L (137-145) mmol/L Potassium 3.4 L (3.5-5.1) mmol/L Chloride 90 L (98-107) mmol/L Carbon Dioxide 38 H (22-30) mmol/L Creatinine 0.48 L (0.66-1.25) mg/dL Glucose 106 H (74-99) mg/dL POC Glucose (mg/dL) (70-110) mg/dL Calcium 7.9 L (8.4-10.2) mg/dL Microbiology - Last 24 Hours (Table) 03/07/22 11:49 CSF Gram Stain - Preliminary Cerebral Spinal Fluid CSF Culture - Preliminary Assessment and Plan Assessment: Recurrent seizure activity, and the patient noncompliant with epilepsy medications. MRI of the brain revealed right hippocampus and uncus restricted diffusion favoring sequela of patient's seizures. Cerebrospinal fluid from 03/07/2022 reveals a glucose of 89 and a protein of C9. Clear, colorless. Cultures pending. Acute hypoxemic respiratory failure secondary to suspected aspiration pneumonia, with increasing right lower lobe collapse. Barium swallow from 02/27/2022 revealed no penetration or aspiration identified. The patient has bilateral pleural effusion moderate in size more so on the right and passive atelectasis of the lung base in addition to some areas of patchy groundglass pulmonary infiltrates. Suspect transudative effusion secondary to CHF. Stable on 2 L nasal cannula. Diuresing well. Acute exacerbation of chronic systolic congestive heart failure with previous echocardiogram revealing ejection fraction of 40-45%, proBNP greater than 18,000 History of chronic tobacco use and nicotine dependence. History of hypertension. History of chronic alcohol abuse. History of marijuana use. Chronic wounds, lower extremities. Plan: The patient was seen and evaluated Labs and medications reviewed Improved and on 2 L nasal cannula Transitioned to oral diuretics Transitioned to prednisone Clear for discharge from the pulmonary standpoint I have personally seen and examined the patient, performed the documentation and the assessment and plan as written. Number of minutes spent on the visit: 10.
[2022-03-09 11:54] LABS: Glucose,Whole Blood 110 mg/dL (70-110)
[2022-03-09 16:28] LABS: Glucose,Whole Blood 116 mg/dL (70-110)
[2022-03-09] MEDS ORDERED: Potassium Replacement Protocol 1 EACH MISC MISCELLANE PRN (17:30)
--- NOTE | 2022-03-09 18:45 | P.PN ---
Subjective Progress Note Date: 03/09/22 Principal diagnosis: Aspiration pneumonia Patient is a 61-year-old male with a past medical history significant for chronic on both abuse seizure disorder noncompliant with his seizure medication patient was brought into the ER with acute onset of seizure , patient did have elevated white count and evidence of multifocal infiltrating mostly in the left perihilar region concerning for possible aspiration pneumonia. On today's evaluation is 03/09/2022, the patient remains to be afebrile, the patient is breathing comfortably on room air , the patient denies any chest pain , the patient did have occasional dry cough , the patient denies any nausea or vomiting no abdominal pain or diarrhea, patient mentioned feeling better Objective - Vital Signs Vital signs: Vital Signs Temp 97.9 F 03/09/22 04:00 Pulse 69 03/09/22 04:00 Resp 18 03/09/22 04:00 BP 132/68 03/09/22 04:00 Pulse Ox 97 03/09/22 04:00 FiO2 40 02/27/22 15:56 Intake & Output 03/08/22 03/09/22 03/09/22 18:59 06:59 18:59 Intake Total 580 Output Total 1100 950 400 Balance -520 -950 -400 Weight 58.967 kg 63.2 kg Intake: Intake, IV Titration 100 Amount Piperacillin-Tazobactam 3 100 .375 gm In Sodium Chloride 0.9% 100 ml @ 25 mls/hr IVPB Q8HR [facility] Rx# :[id number] Oral 480 Output: Urine 1100 950 400 Other: Voiding Method Urinal - Exam GENERAL DESCRIPTION: Middle-aged male lying in bed in no distress RESPIRATORY SYSTEM: Unlabored breathing , decreased breath sounds at bases HEART: S1 S2 regular rate and rhythm , ABDOMEN: Soft , no tenderness EXTREMITIES: No edema feet - Labs CBC & Chem 7: 03/09/22 08:12 03/09/22 08:12 Labs: Abnormal Lab Results - Last 24 Hours (Table) 03/08/22 03/08/22 03/08/22 Range/Units 06:35 11:29 16:44 WBC (3.8-10.6) k/uL RBC (4.30-5.90) m/uL Hgb (13.0-17.5) gm/dL Hct (39.0-53.0) % Neutrophils # (1.3-7.7) k/uL Sodium 127 L (137-145) mmol/L Potassium 3.3 L (3.5-5.1) mmol/L Chloride 86 L (98-107) mmol/L Carbon Dioxide 39 H (22-30) mmol/L Creatinine 0.65 L (0.66-1.25) mg/dL Glucose 129 H (74-99) mg/dL POC Glucose (mg/dL) 271 H 137 H (70-110) mg/dL Calcium 7.4 L (8.4-10.2) mg/dL 03/08/22 03/09/22 03/09/22 Range/Units 20:10 05:53 08:12 WBC 13.7 H (3.8-10.6) k/uL RBC 4.04 L (4.30-5.90) m/uL Hgb 11.4 L (13.0-17.5) gm/dL Hct 36.8 L (39.0-53.0) % Neutrophils # 11.3 H (1.3-7.7) k/uL Sodium (137-145) mmol/L Potassium (3.5-5.1) mmol/L Chloride (98-107) mmol/L Carbon Dioxide (22-30) mmol/L Creatinine (0.66-1.25) mg/dL Glucose (74-99) mg/dL POC Glucose (mg/dL) 219 H 121 H (70-110) mg/dL Calcium (8.4-10.2) mg/dL 03/09/22 Range/Units 08:12 WBC (3.8-10.6) k/uL RBC (4.30-5.90) m/uL Hgb (13.0-17.5) gm/dL Hct (39.0-53.0) % Neutrophils # (1.3-7.7) k/uL Sodium 130 L (137-145) mmol/L Potassium 3.4 L (3.5-5.1) mmol/L Chloride 90 L (98-107) mmol/L Carbon Dioxide 38 H (22-30) mmol/L Creatinine 0.48 L (0.66-1.25) mg/dL Glucose 106 H (74-99) mg/dL POC Glucose (mg/dL) (70-110) mg/dL Calcium 7.9 L (8.4-10.2) mg/dL Microbiology - Last 24 Hours (Table) 03/07/22 11:49 CSF Gram Stain - Preliminary Cerebral Spinal Fluid CSF Culture - Preliminary Assessment and Plan (1) Pneumonia Current Visit: Yes Status: Acute Code(s): J18.9 - PNEUMONIA, UNSPECIFIED ORGANISM SNOMED Code(s): 220427694 Plan: 1patient presented to hospital with active seizures in this patient now with evidence of multifocal pneumonia mostly left perihilar region did have elevated vital concerning for pneumonia of aspiration etiology. 2positive blood culture finalized as staph epi likely skin contamination blood cultures repeated 02/25/2022 so far negative. 3patient slowly clinically improving the patient is afebrile and white count is slightly up at 13.7 today and will be monitored closely, patient currently being treated with the Zosyn however plan to finish therapy with oral Augmentin Time with Patient: Less than 30
[2022-03-09 20:21] LABS: Glucose,Whole Blood 151 mg/dL (70-110)
[2022-03-09] MEDS: POTASSIUM CHLORIDE ER 20 MEQ TAB.ER PO SCH ×2 (20:52→22:12)
[2022-03-10 05:51] LABS: Glucose,Whole Blood 97 mg/dL (70-110)
[2022-03-10] MEDS: INSULIN ASPART (NovoLOG) 100 UNIT/ML VIAL SQ SCH ×4 (06:13→20:23)
[2022-03-10 07:47] LABS: Basophils % (A) 0 %; Eosinophils % (A) 0 %; HCT 35.4 % (39.0-53.0); Lymphocytes # (A) 1.8 k/uL (1.0-4.8); Lymphocytes % (A) 13 %; MCH 28.3 pg (25.0-35.0); MCHC 31.1 g/dL (31.0-37.0); MCV 90.9 fL (80.0-100.0); Mean Platelet Volume 8.5; Monocytes # (A) 1.1 k/uL (0-1.0); Monocytes % (A) 8 %; Neutrophils # (A) 10.3 k/uL (1.3-7.7); Neutrophils % (A) 76 %; Platelet Count 413 k/uL (150-450); RDW 13.8 % (11.5-15.5); WBC 13.6 k/uL (3.8-10.6)
[2022-03-10] MEDS: IPRATROPIUM-ALBUTEROL 3 ML NEB INHALATION SCH ×4 (08:54→19:35)
[2022-03-10] MEDS: METOPROLOL TARTRATE 50 MG TAB PO SCH ×2 (09:55→20:26)
[2022-03-10] MEDS: FUROSEMIDE 40 MG TAB PO SCH (09:55)
[2022-03-10] MEDS: ASPIRIN 81 MG PO SCH (09:56)
[2022-03-10] MEDS: predniSONE 20 MG TAB PO SCH (09:56)
[2022-03-10] MEDS: levETIRAcetam 500 MG TAB PO SCH ×2 (09:56→20:26)
[2022-03-10] MEDS: FLUCONAZOLE 100 MG TAB PO SCH (09:56)
[2022-03-10] MEDS: PIPERACILLIN-TAZOBACTAM 3.375 GM in SODIUM CHLORIDE 0.9% 100 ML IVPB SCH ×3 (09:56→23:25)
[2022-03-10] MEDS: TAMSULOSIN 0.4 MG CAP.ER.24H PO SCH (09:56)
[2022-03-10] MEDS: THIAMINE 100 MG TAB PO SCH (09:56)
[2022-03-10] MEDS: PANTOPRAZOLE 40 MG/10 ML VIAL IVP SCH (09:57)
--- NOTE | 2022-03-10 10:15 | P.PN ---
Subjective Progress Note Date: 03/09/22 Patient was seen for a follow-up. Patient is laying comfortably in the bed. Denies any headache, no numbness or tingling or visual problems. Offers no complaints. Patient's dysphagia has resolved. No seizures. Patient admits to drinking only 1 or 2 beers per day. Denies excessive alcoholism. Objective - Vital Signs Vital signs: Vital Signs Temp 97.9 F 03/09/22 04:00 Pulse 69 03/09/22 04:00 Resp 18 03/09/22 04:00 BP 132/68 03/09/22 04:00 Pulse Ox 97 03/09/22 04:00 FiO2 40 02/27/22 15:56 Intake & Output 03/08/22 03/09/22 03/09/22 18:59 06:59 18:59 Intake Total 580 Output Total 1100 950 400 Balance -520 -950 -400 Weight 58.967 kg 63.2 kg Intake: Intake, IV Titration 100 Amount Piperacillin-Tazobactam 3 100 .375 gm In Sodium Chloride 0.9% 100 ml @ 25 mls/hr IVPB Q8HR [facility] Rx# :[id number] Oral 480 Output: Urine 1100 950 400 Other: Voiding Method Urinal - Exam Patient is alert and awake, appears much more normal mentation. Patient states it is February 2022. He knows he is in [facility] and name of the current president Mr. King. Speech is slightly hoarse. No aphasia or dysarthria. Cranial nerve shows visual wang are full. Face is symmetric and tongue protrudes the midline. Muscle strength is normal in the arms and legs except hip flexion which is 5- bilaterally. Left shoulder is weak related to arthritic change. - Labs CBC & Chem 7: 03/10/22 06:37 03/09/22 08:12 Labs: Abnormal Lab Results - Last 24 Hours (Table) 03/08/22 03/08/22 03/08/22 Range/Units 06:35 11:29 16:44 WBC (3.8-10.6) k/uL RBC (4.30-5.90) m/uL Hgb (13.0-17.5) gm/dL Hct (39.0-53.0) % Neutrophils # (1.3-7.7) k/uL Sodium 127 L (137-145) mmol/L Potassium 3.3 L (3.5-5.1) mmol/L Chloride 86 L (98-107) mmol/L Carbon Dioxide 39 H (22-30) mmol/L Creatinine 0.65 L (0.66-1.25) mg/dL Glucose 129 H (74-99) mg/dL POC Glucose (mg/dL) 271 H 137 H (70-110) mg/dL Calcium 7.4 L (8.4-10.2) mg/dL 03/08/22 03/09/22 03/09/22 Range/Units 20:10 05:53 08:12 WBC 13.7 H (3.8-10.6) k/uL RBC 4.04 L (4.30-5.90) m/uL Hgb 11.4 L (13.0-17.5) gm/dL Hct 36.8 L (39.0-53.0) % Neutrophils # 11.3 H (1.3-7.7) k/uL Sodium (137-145) mmol/L Potassium (3.5-5.1) mmol/L Chloride (98-107) mmol/L Carbon Dioxide (22-30) mmol/L Creatinine (0.66-1.25) mg/dL Glucose (74-99) mg/dL POC Glucose (mg/dL) 219 H 121 H (70-110) mg/dL Calcium (8.4-10.2) mg/dL 03/09/22 Range/Units 08:12 WBC (3.8-10.6) k/uL RBC (4.30-5.90) m/uL Hgb (13.0-17.5) gm/dL Hct (39.0-53.0) % Neutrophils # (1.3-7.7) k/uL Sodium 130 L (137-145) mmol/L Potassium 3.4 L (3.5-5.1) mmol/L Chloride 90 L (98-107) mmol/L Carbon Dioxide 38 H (22-30) mmol/L Creatinine 0.48 L (0.66-1.25) mg/dL Glucose 106 H (74-99) mg/dL POC Glucose (mg/dL) (70-110) mg/dL Calcium 7.9 L (8.4-10.2) mg/dL Microbiology - Last 24 Hours (Table) 03/07/22 11:49 CSF Gram Stain - Preliminary Cerebral Spinal Fluid CSF Culture - Preliminary Assessment and Plan Assessment: * Seizure disorder, came with recurrent seizures (3). Seizures aborted with Versed 5 mg IV push. * Abnormal brain MRI, with abnormal signal with restricted diffusion in the right hippocampus and uncus. Probably favors sequela of patient's seizure. * History of alcoholism. Patient at present denies any regular alcoholism. He states that he just drinks 1-2 beers per night. Patient also takes Klonopin regularly, denies running out of it. No obvious cause/provoking factor identified for the seizure. * Dysphagia, resolved. * Pneumonia * Bacteremia with staph coagulase-negative, felt to be contaminant-per ID. * Feet ulcers * Tobacco use * Marijuana use * Coronary artery disease Plan: * Continue Keppra. Patient has received a loading dose of Keppra 2000 mg in the ER, and will be maintained on Keppra 1000 mg twice a day. * Dysphagia has resolved. * EEG was abnormal due to presence of low amplitude sharp-appearing waves in the right frontotemporal region. This may suggest underlying cortical irrit ability and tendency for seizures. No electrographic seizure was recorded. * MRI of the brain without contrast revealed right hippocampus and uncus restricted diffusion is favored to represent sequela of patient's seizure. Other differential includes mesial temporal sclerosis, however it is felt to be less likely given no significant atrophic changes. Other etiologies in clude limbic encephalitis. Short-term follow-up MRI is recommended. I personally reviewed MRI, agree with the findings. * Start aspirin 81 mg daily, as there is abnormal signal on DWI in the right hi ppocampus. * 2-D echo from 03/24/2021 revealed normal left ventricular size, moderate concentric LVH. EF is mild to moderately impaired 40-45%. Normal left atrial size. Mild aortic valve sclerosis with trace to mild AR. * Carotid Doppler revealed less than 50% stenosis of bilateral carotid bifurcation. Antegrade flow right vertebral artery. Left vertebral unable to visualize. * Lumbar puncture performed today, with WBC count 0, RBC 156, CSF glucose 86 and CSF protein 69(12-60). No evidence of encephalitis. CSF viral cultures n egative. * NMDA antibodies < 1:10, which is normal/negative. * For pneumonia, patient currently on Zosyn. ID following. * No driving, climbing ladders, operating dangerous machineries or swimming. * Recommended abstinence from alcoholism, marijuana and tobacco use. * Neurologically clear for discharge.
--- NOTE | 2022-03-10 11:23 | P.PN ---
Subjective Date of service for this note is 03/10/2022 From the records: 61-year-old male with a known history of seizure disorder, currently with a smoker and current alcohol abuse and currently not on any antiepileptic drugs was brought to ER by ambulance due to seizures.. Patient was also having chronic foot wounds and is on follow-up with wound care center. Patient is also noncompliant with follow-up and medications. Apparently patient had 3 episodes of seizures within an hour and has been acting differently. Patient's parents called EMS. Upon arrival to the ER patient was having leftward gaze deviation and was actively seizing. Patient was given 5 mg of IV Versed and seizure stopped. Patient was postictal. Patient is still drowsy and lethargic and unable to provide history. CT head and cervical spine showed no acute intracranial process. Nonspecific white matter changes likely secondary to chronic small vessel ischemic disease. No evidence of cervical spine fracture. Mild COPD changes with intralobular septal thickening and patchy groundglass opacities within the bilateral upper lobes concerning for infectious/infectious inflammatory process. Chest x-ray showed multifocal airspace opacities most pronounced on the left hilar region. Findings concerning for pneumonia. Foot x-ray showed no evidence of acute fracture. No osteomyelitis. Multifocal osteoarthrosis changes. EKG showed sinus tachycardia. Laboratory data showed WBC 18.6 hemoglobin 13.1 and lipase 471 2124 potassium 4.9 chloride 96 bicarb is 19 BUN 16 creatinine 0.66 and blood sugar is 2631 lactic acid 7.9 and albumin 2.9 serum alcohol level is less than 10 and influenza AB and RSV PCR and COVID-19 not detected. Patient is currently ER and requiring oxygen at 6 L via nasal cannula. 24 hour interval change 03/01/2022 Patient is seen and evaluated in follow-up on the selective care unit. Awake and alert in no acute distress; maintaining O2 saturations in the 90s on 2 L/m per nasal cannula. His main complaint is that of fatigue. No worsening shortness of breath, cough or congestion. -- Chest x-ray reveals moderate central vascular congestion with small to moderate right pleural effusion and tiny left pleural effusion. He has D5W at 75 mL per hour. - Follow-up blood culture reveals no growth. Urine culture revealed no growth. ProBNP 18,500. Patient received Lasix 40 mg IV 1; echocardiogram is recommended - Currently on bronchodilators. Antibiotics in the form of Zosyn. Heparin for DVT prophylaxis. Patient underwent radium swallow which did not reveal any aspiration -- patient was switched to oral Lasix 20 mg by mouth daily. He has a incentive spirometer. He also has a flutter valve. IV fluids are in the form of normal saline at rate of 50 mL an hour. He has a chronic smoker. He is using DuoNeb nebulized treatments and this will be switched to [id number] every 4 hours. - Pulmonary service recommending to continue with current management with further recommendations once echocardiogram results aren't available -- Patient has been evaluated by cardiology for tachycardia and metoprolol has been resumed at 100 mg twice a day - Patient is recommended abstinence from alcohol and tobacco use -- Possible discharge in next 24 hours once cleared by pulmonary service 03/02/2022 Patient is a pleasant 61 years old male with multiple medical problems was presented initially with breakthrough seizure, patient has insight. He denies any specific symptoms. Patient has been followed by neurologist and Then [facility], MRI of the brain showing sequelae of seizures with neurological deficits and suspicious for CVA felt less likely by neurologist. Lumbar puncture still pending. Other than that patient reports improvement, he is eating better, no respiratory symptoms, his weakness is better. Calle catheter still in place which was placed on 02/25. Patient denies any depression. Resume the care of the patient 03/06/2022 Patient awake sitting up in bed, mildly tachypneic, mildly confused Patient denies chest pain or significant dyspnea. He still feels weak. He tolerates that well. No Calle catheter. He is saturating 95% on 2 L oxygen via nasal cannula I talked to him about going to rehab and he looks agreeable for short-term. Patient remains on IV Lasix, IV Solu-Medrol and Zosyn which can't be switched to oral antibiotics upon discharge Hypokalemia would be replaced per protocol We will follow-up with the neurologist if any further recommendation, discussed with the staff 03/07/2022 patient clinically doing well, he denies any specific symptoms, his mentation is back to baseline. Vitals and labs are reviewed and looks stable, low potassium and magnesium replaced Patient remains on IV Lasix, IV Solu-Medrol, Zosyn. Also is on Keppra Pending lumbar puncture recommended by neurologist Heparin placed on hold for lumbar puncture, discussed with the staff. Last dose received 03/06/2022 03/08/2022 Patient awake alert, no chest pain no dyspnea. Patient had lumbar puncture yesterday, he denies any back pain today he told me he was able to walk to the bathroom by himself using the walker with no difficulty. No new weakness or numbness. However the patient informed me that he had bloody bowel movement, I discussed with the staff and the patient on the same but it was not witnessed. Therefore we going to order occult blood in stool and anemia workup. Hemoglobin today was 10.1 compared to 10.[address] anemia workup. CSF culture pending, currently on Zosyn and she is switched to Augmentin upon discharge. Also patient men's on IV Lasix 40 mg twice daily, Solu-Medrol 60 mg, and Zosyn. We change her Pepcid to Protonix today. Patient also on aspirin 81 mg added during this admission. Discontinue subcutaneous heparin for possible GI bleed 03/09/2022 Patient was asymptomatic However patient occult blood in stool came back positive Hemoglobin 11.4 Consulted surgery team 03/10/2022 Patient denies any specific symptoms but he reports another blood in his bowel movement today, patient says that there are streaks of blood in his stool However patient vitals and hemoglobin is stable at 11.0. Patient currently on Protonix Also he is on baby aspirin recommended by neurologist Surgical team consult Patient remains on oral Lasix, prednisone, Zosyn which can be changed Augmentin for discharge Objective - Vital Signs Vital signs: Vital Signs Temp 97.8 F 03/10/22 09:52 Pulse 92 03/10/22 09:52 Resp 16 03/10/22 09:53 BP 120/67 03/10/22 09:52 Pulse Ox 91 L 03/10/22 09:52 FiO2 40 02/27/22 15:56 Intake & Output 03/09/22 03/10/22 03/10/22 18:59 06:59 18:59 Intake Total 240 Output Total 400 1300 575 Balance -400 1300 335 Intake: Oral 240 Output: Urine 400 1300 575 Other: Voiding Method Urinal Urinal Urinal - Exam -GENERAL: The patient is alert and oriented x3, not in any acute distress. Well developed, well nourished. Generally weak HEENT: Pupils are round and equally reacting to light. EOMI. No scleral icterus. No conjunctival pallor. Normocephalic, atraumatic. No pharyngeal erythema. No thyromegaly. CARDIOVASCULAR: S1 and S2 present. No murmurs, rubs, or gallops. PULMONARY: Chest is clear to auscultation, no wheezing or crackles. ABDOMEN: Soft, nontender, nondistended, normoactive bowel sounds. No palpable organomegaly. MUSCULOSKELETAL: No joint swelling or deformity. EXTREMITIES: No cyanosis, clubbing, or pedal edema. NEUROLOGICAL: Gross neurological examination did not reveal any focal deficits. SKIN: No rashes. no petechiae. - Labs CBC & Chem 7: 03/10/22 06:37 03/09/22 08:12 Labs: Abnormal Lab Results - Last 24 Hours (Table) 03/09/22 03/09/22 03/10/22 Range/Units 16:26 20:19 06:37 WBC 13.6 H (3.8-10.6) k/uL RBC 3.90 L (4.30-5.90) m/uL Hgb 11.0 L (13.0-17.5) gm/dL Hct 35.4 L (39.0-53.0) % Neutrophils # 10.3 H (1.3-7.7) k/uL Monocytes # 1.1 H (0-1.0) k/uL POC Glucose (mg/dL) 116 H 151 H (70-110) mg/dL Microbiology - Last 24 Hours (Table) 03/07/22 11:49 CSF Gram Stain - Preliminary Cerebral Spinal Fluid CSF Culture - Preliminary Assessment and Plan Assessment: Rule out GI bleed Acute Seizure disorder with hx of recurrent seizures. Noncompliant with medications. Bilateral upper lobe pneumonia concerning for aspiration pneumonia Sepsis secondary above Severe lactic acidosis 7.9 on admission, resolved Acute hypoxemic respiratory failure was on BIPAP currently requiring 2L nasal cannula hyponatremia Alcohol abuse History of marijuana use Ongoing nicotine addiction Coagulase-negative staph aureus bacteremia likely contamination Hypertension Sinus tachycardia Chronic lower extremity skin changes/wounds. Plan: Surgery team consult, continue with aspirin now recommended by neurologist with close monitoring of hemoglobin CSF results reviewed, patient is cleared by urologist by neurologist Anemia workup and monitor hemoglobin. Start Protonix Neurologist service on the case Neurologist recommended short-term follow-up MRI Continue with Keppra Continue with blood pressure medication Continue with Lasix. Continue Zosyn Cardiology team, infectious disease and pulmonary team already sent of the case. Labs and medication were reviewed.. Continue same treatment. Continue with symptomatic treatment. Resume home medication. Monitor labs and vitals. DVT and GI prophylaxis. Further recommendations as per clinical course of the patient DVT prophylaxis: Subcutaneous heparin, on hold secondary to possible GI bleed GI Prophylaxis: Ppi PT/OT: Pending Prognosis is guarded
--- NOTE | 2022-03-10 11:24 | P.PN ---
Subjective Progress Note Date: 03/10/22 61-year-old male who presents to the emergency room on February 21, via EMS, for possible seizure. The patient has a history of chronic alcohol abuse, and chronic foot wounds. He apparently does have a history of seizure disorder, and is apparently noncompliant with his seizure medications. He apparently presented to the emergency department with acute onset of seizure, earlier on the day of admission, which was February 21. He apparently had 3 different seizure episodes within one hour. When EMS arrived, he apparently was actively seizing. They administered 5 mg of IV Versed, and the seizure stopped. The patient was apparently postictal after that. Since being in the emergency department, the patient has been improving neurologically. He was on BiPAP for a short period of time with settings of 15/5 and 60%, up until about 3:00 in the morning. Now he is on between 6-7 L of nasal oxygen. He is getting saline at keep vein open. Current vital signs include sinus tachycardia with a rate of 138, blood pressure 116/85 respiratory rate 22 and saturations 90-92%. White count 26.4, hemoglobin 13.5, hematocrit 43.6, and platelet count was normal. Most recent blood gases show pO2 71, pCO2 47, and a pH is 7.26. That was on BiPAP at 60%. Troponin was 0.030. Initial pH was 7.12. Sodium 124, potassium 4.9, chlorides 96, CO2 19, BUN 6, creatinine 0.66. Urine screen was positive f or benzodiazepines, and marijuana. Chest x-ray shows patchy airspace disease in the left hilar region, consistent with possible aspiration pneumonia. The patient is seen today 02/23/2022 in follow-up on the selective care unit. He is currently resting fairly comfortably in bed. Somewhat lethargic. He is on BiPAP 15/5 and 60% FiO2 with O2 saturations in the 90s. EEG revealed possible low amplitude sharp appearing waves in the right frontotemporal region. This may suggest underlying cortical irritability intensive for seizures. No seizures were recorded. Blood cultures positive for coag-negative staph. Urine culture negative. White count 21.1. Hemoglobin 12.4. Platelets 331. Sodium 138. Potassium 4.8. BUN 7. Creatinine 0.52. AST 39. ALT 18. He is continued on bronchodilators and Zosyn. Heparin for DVT prophylaxis. Remains in the CIWA protocol. Remains on Keppra. The patient seen today 02/24/2022 in follow-up on the selective care unit. He is currently sitting up in bed. More awake and arousable. Currently on 5 L high flow nasal cannula. He has been alternating with BiPAP 15/5 and 60% FiO2. He has normal saline at 50 MLS per hour. Maintained on Zosyn. Bronchodilators. Heparin for DVT prophylaxis. No seizure activity. Remains in CIWA protocol. Last Ativan requirement at 4 AM this morning. The cultures positive for coag- negative staph. White count 15.4. Hemoglobin 11.1. Platelets 325. Sodium 139. Potassium 3.8. BUN 9. Creatinine 0.75. The patient is seen today 02/25/2022 in follow-up on the selective care unit. He is more awake and alert today. Denies any worsening shortness of breath, cough or congestion. Currently maintaining O2 saturations in the 90s on 5 L/m per nasal cannula. He had initially been on BiPAP 5 over 5 and 60% FiO2. Chest x-ray revealed worsening scattered airspace opacities with a new right lower lobe collapse. MRI of the brain revealed right hippocampus and fungus restricted diffusion favoring sequela patient seizure. Generalized atrophy changes and mild nonspecific white matter changes secondary to small vessel ischemic disease. Moderate paranasal sinus disease. Carotid Dopplers revealed less than 50% stenosis bilaterally. Blood cultures revealed coag-negative staph. White count 11.8. Hemoglobin 11.2. Sodium 143. Potassium 3.9. BUN 12. Creatinine 0.57. He remains on DuoNeb inhalations. Antibiotics in the form of Zosyn. Heparin for DVT prophylaxis. Remains on Keppra. Normal saline at 100 ML's per hour. No seizure activity. The patient is seen today 02/26/2022 in follow-up on the selective care unit. He is currently resting comfortably in bed. Awake and alert in no acute distress. He is maintaining O2 saturations in the 90s on 5 L/m per nasal cannula. D545 at 75 ML's per hour. He is continued on bronchodilators. Continue on heparin for DVT prophylaxis. Remains on antibiotics in the form of Zosyn. Follow-up blood cultures revealing no growth. Urine culture revealed no growth. No seizure activity. The patient is seen today 02/27/2022 in follow-up on the selective care unit. He is sitting up in bed. Awake and alert in no acute distress. Currently on Bi PAP 15/5 on 40% FiO2 alternating with 5 L high flow nasal cannula. Receiving D5 W at 50 MLS per hour Follow-up blood cultures revealed no growth. Sodium 143. Potassium 4.8. Chloride 116. BUN 13. Creatinine 0.51. Glucose 103. The plan is for a barium swallow today. She remains on bronchodilators, Zosyn, heparin for DVT prophylaxis. Continue to CIWA protocol. No seizures noted. The patient is seen today 02/28/2022 in follow-up on the selective care unit. He is sitting up in bed. Awake and alert in no acute distress. Currently maintaining O2 saturations in the 90s on 2 L/m per nasal cannula. His main complaint is that of fatigue. No worsening shortness of breath, cough or conge stion. No seizure activity. He's been afebrile. Hemodynamically stable. Chest x-ray reveals moderate central vascular congestion with small to moderate right pleural effusion and tiny left pleural effusion. He has D5W at 75 mL per hour. Follow-up blood culture reveals no growth. Urine culture revealed no growth. ProBNP 18,500. Has only been in a -135 mL balance. Currently on bronchodilators. Antibiotics in the form of Zosyn. Heparin for DVT prophylaxis. On 03/01/2022, the patient is being seen for a follow-up. Remains on O2 at 2 L and has a BiPAP at the bedside. Breath sounds are quite diminished bilaterally and the patient is a chronic smoker. No chest pain. He has a congested cough. No aspiration. The patient is on Lasix and the patient was switched to oral Lasix 20 mg by mouth daily. He has a incentive spirometer. He also has a flutter valve. IV fluids are in the form of normal saline at rate of 50 mL an hour. He has a chronic smoker. He is using DuoNeb nebulized treatments and this will be switched to [id number] every 4 hours. He is on heparin subcu for DVT prophylaxis. No other significant events otherwise for now. No seizure activity. He has chronic alcoholism in his been a chronic smoker. 03/02/2022, the patient remains on 2 L of oxygen by nasal cannula. Not utilizing the BiPAP. He has a flutter valve at the bedside and the patient and incentive spirometer. He remains on bronchodilators with DuoNeb about treatments [id number]. He had an echo of the heart yesterday and the patient was found to have a ejection fraction of 30% and LV's impaired. There is also evidence of apical septal and lateral inferior wall hypokinesis. RVSP 30. Mild aortic regurgitation and mitral regurgitation is also present. No evidence of any pericardial effusion. The follow-up chest x-ray that was done today shows cardiomegaly, effusions the lung bases and persistent right lower lobe opacification. The right mid and right lower lobe opacity is unchanged. The patient remains on IV Zosyn. 03/03/2022, the patient remains on 2 L of oxygen by nasal cannula. As mentioned, he has advanced COPD and cardiomyopathy also. There was a concern of his ongoing opacity in the right middle lobe/right lower lobe which has remained unchanged based on follow-up chest x-rays. Based on that, a CAT scan of the chest was ordered yesterday. Based on the CAT scan findings, the patient has moderate sized bilateral pleural effusion with compressive atelectasis of the right lung base. There is also areas of patchy infiltrates in the upper lobes. These areas of groundglass opacities in the upper lobes. However, predominant abnormality remains the bilateral pleural effusion which is moderate in size. At the same time, is complaining of difficulties in swallowing. He has developed some oropharyngeal candidiasis that'll be treated accordingly. The risk was a 10.3 with a hemoglobin of 11.6 and the BUN is at panel with a creatinine of 0.7. He remains on bronchodilators. Remains on steroids and is going to be tapered to prednisone burst taper. Obviously, the patient will need thoracentesis to give him symptomatic relief. On 03/04/2022, the patient remains on 2 L of oxygen by nasal cannula. Still quite lethargic. As mentioned yesterday, the patient was found to have bilateral pleural effusion moderate to large in size. I offered them thoracentesis. He declined. Based on that, he was started on diuretics and the patient is currently on a negative fluid balance. His BUN is at 30 with a creatinine of 0.5. The WBC count of 10.8. Is currently on Lasix at a dose of 40 mg IV every 12 hours. 03/05 2022, the patient is feeling fine. Is still not agreeable for thoracentesis. Will continue diuretics. Chest x-ray findings of essentially unchanged and the patient has bilateral pleural effusion on pulmonary vessel congestion. Nevertheless, he is in a negative fluid balance and overall he is improving. No new complaints otherwise for now.Blood work shows a hemoglobin of 11.1, WBC count of 10.4, platelets of 366, serum bicarbs of 45, sodium is at 136, potassium needs to be replaced at 2.8. The patient remains on Lasix and the patient is receiving Lasix 40 mg IV every 12 hours. He remains on IV Zosyn. The patient is seen today 03/06/2022 in follow-up on the selective care unit. He is currently sitting up in bed. Awake and alert in no acute distress. Maintaining good O2 saturations in the mid 90s on 2 L/m per nasal cannula. Afebrile. Hemodynamically stable. Recent chest x-ray reveals right lower lung airspace opacities. Some blunting of the left costophrenic angles. No significant change. Evidence of COPD. Follow-up will cultures revealed no growth. Urine culture revealed no growth. White count 9.0. Hemoglobin 10.6. Sodium 132. Potassium 2.6. Chloride 84. Bicarb 46. BUN 14. Creatinine 0.58. Glucose 133. Potassium is being replaced. Continued on bronchodilators, IV Solu-Medrol, Zosyn. Heparin for DVT prophylaxis. Continues on IV Lasix 40 mg every 12 hours. Currently in a -2.2 L balance. The patient is seen today 03/07/2022 in follow-up on selective care unit. He is awake and alert in no acute distress. Currently sitting up in bed. He is maintaining O2 saturations in the 90s on 2 L/m per nasal cannula. He denies any worsening shortness of breath, cough or congestion. Follow-up blood cultures revealing no growth. Sodium 132. Potassium 3.4. Bicarb 40. BUN 14. Creatinine 0.40. Glucose 121. He is continued on DuoNeb inhalations, IV Solu- Medrol and antibiotics in the form of Zosyn. Heparin for DVT prophylaxis. Continued on IV diuretics. Remains in a negative balance. No noted seizure activities. The patient is seen today 03/08/2022 in follow-up on the selective care unit. He is currently sitting up in bed. Awake and alert in no acute distress. He denies any worsening shortness of breath, cough or congestion. Maintaining O2 saturations in the mid 90s on 2 L/m per nasal cannula. He's been afebrile. Hemodynamically stable. Chest x-ray reveals improved right lower lobe airspace opacities in the right pleural effusion. Trace left effusion. COPD changes. Follow-up blood cultures revealed no growth. Urine culture reveals no growth. Cerebral spinal fluid culture pending. CSF analysis revealed clear colorless fluid with 86 glucose. 69 protein. 156 RBCs. He count 10.5. Hemoglobin 10.1. He is continued on DuoNeb inhalations, IV Solu-Medrol, Zosyn. Remains on IV diuretics. Currently in a -3.2 L balance. The patient is seen today 03/09/2022 in follow-up on the selective care unit. He is awake and alert in no acute distress. Resting quite comfortably in bed. He is continuing to maintain good O2 saturation in the 90s on 2 L/m per nasal cannula. He is afebrile. Hemodynamically stable. Cerebral spinal fluid cultures pending. Blood cultures reveal no growth. We count 13.7. Hemoglobin 11.4. Platelets 402. Sodium 130. Potassium 3.4. Chloride 90. Bicarb 30. BUN 11. Creatinine 0.48. Glucose 106. He is continued on bronchodilators, diuretics, prednisone and Zosyn. He remains on Keppra. No seizure activity. Currently in a -1.4 L balance. The patient is seen today 03/10/2022 in follow-up on the selective care unit. He is currently sitting up in bed. Awake and alert in no acute distress. He denies any worsening shortness of breath, cough or congestion. He is maintaining O2 saturation in the 90s on room air. He's afebrile. Hemodynamically stable. Cerebral spinal fluid reveals no growth after 48 hours. Follow-up blood cultures revealed no growth. White count 13.6. Hemoglobin 11.0. Currently in a -1.7 L balance. He remains on DuoNeb inhalations, prednisone taper. Antibiotics in the form of Zosyn. Remains on oral diuretics. Stool for occult blood was positive. No acute bleeding noted. No seizure activity. Objective - Vital Signs Vital signs: Vital Signs Temp 97.8 F 03/10/22 09:52 Pulse 92 03/10/22 09:52 Resp 16 03/10/22 09:53 BP 120/67 03/10/22 09:52 Pulse Ox 91 L 03/10/22 09:52 FiO2 40 02/27/22 15:56 Intake & Output 03/09/22 03/10/22 03/10/22 18:59 06:59 18:59 Intake Total 240 Output Total 400 1300 575 Balance -400 -1300 -335 Intake: Oral 240 Output: Urine 400 1300 575 Other: Voiding Method Urinal Urinal Urinal - Exam GENERAL EXAM: Awake, alert, 61-year-old male, on room air, comfortable in no apparent distress. HEAD: Normocephalic. EYES: Normal reaction of pupils, equal size. NOSE: Clear with pink turbinates. THROAT: No erythema or exudates. NECK: No masses, no JVD. CHEST: No chest wall deformity. LUNGS: Equal air entry with bilateral crackles in the bases. CVS: S1 and S2 normal with no audible murmur, regular rhythm. ABDOMEN: No hepatosplenomegaly, normal bowel sounds, no guarding or rigidity. SPINE: No scoliosis or deformity SKIN: No rashes CENTRAL NERVOUS SYSTEM: Alert, tone is normal in all 4 extremities. EXTREMITIES: Scaly patches on the bottom of the feet. There is no peripheral edema. No clubbing, no cyanosis. Peripheral pulses are intact. - Labs CBC & Chem 7: 03/10/22 06:37 03/09/22 08:12 Labs: Abnormal Lab Results - Last 24 Hours (Table) 03/09/22 03/09/22 03/10/22 Range/Units 16:26 20:19 06:37 WBC 13.6 H (3.8-10.6) k/uL RBC 3.90 L (4.30-5.90) m/uL Hgb 11.0 L (13.0-17.5) gm/dL Hct 35.4 L (39.0-53.0) % Neutrophils # 10.3 H (1.3-7.7) k/uL Monocytes # 1.1 H (0-1.0) k/uL POC Glucose (mg/dL) 116 H 151 H (70-110) mg/dL Microbiology - Last 24 Hours (Table) 03/07/22 11:49 CSF Gram Stain - Preliminary Cerebral Spinal Fluid CSF Culture - Preliminary Assessment and Plan Assessment: Recurrent seizure activity, and the patient noncompliant with epilepsy medicatio ns. MRI of the brain revealed right hippocampus and uncus restricted diffusion favoring sequela of patient's seizures. Cerebrospinal fluid from 03/07/2022 reveals a glucose of 89 and a protein of C9. Clear, colorless. Cultures reveal no growth after 48 hours Acute hypoxemic respiratory failure secondary to suspected aspiration pneumonia, with increasing right lower lobe collapse. Barium swallow from 02/27/2022 revealed no penetration or aspiration identified. The patient has bilateral ple ural effusion moderate in size more so on the right and passive atelectasis of the lung base in addition to some areas of patchy groundglass pulmonary infiltrates. Suspect transudative effusion secondary to CHF. Stable on room air. Diuresing well. Acute exacerbation of chronic systolic congestive heart failure with previous echocardiogram revealing ejection fraction of 40-45%, proBNP greater than 18,000 History of chronic tobacco use and nicotine dependence. History of hypertension. History of chronic alcohol abuse. History of marijuana use. Chronic wounds, lower extremities. Plan: The patient was seen and evaluated Labs and medications reviewed Improved and room air Clear for discharge from the pulmonary standpoint We will see as needed I have personally seen and examined the patient, performed the documentation and the assessment and plan as written. Number of minutes spent on the visit: 10.
[2022-03-10 11:41] LABS: Glucose,Whole Blood 101 mg/dL (70-110)
--- NOTE | 2022-03-10 13:30 | P.GSCN ---
History of Present Illness Consult date: 03/10/22 History of present illness: CHIEF COMPLAINT: Seizure HISTORY OF PRESENT ILLNESS: This is 61-year-old male who was admitted to the hospital with breakthrough seizures. He had not been taking his antilipid medications. He has also history of alcohol use. Also during his admission his been diagnosed with pneumonia. Patient has had one bloody bowel movement daily for the last 2 days. His subcu heparin was discontinued. He is on a baby aspirin. He does have a history of peptic ulcer disease. He denies any abdominal pain. He denies any nausea or vomiting. Hemoglobin on admission was 13.1 the lowest hemoglobin has been since admission is 9.8. Today's hemoglobin is 11. Stool for occult blood was positive. Surgical service has been consulted in regards to patient's GI bleed. Patient reports never having a colonoscopy in the past. PAST MEDICAL HISTORY: See below PAST SURGICAL HISTORY: See below MEDICATIONS: See below ALLERGIES: See below SOCIAL HISTORY: No illicit drug use. REVIEW OF SYSTEMS: CONSTITUTIONAL: Denies fever or chills. HEENT: Denies blurred vision, vision changes, or eye pain. Denies hemoptysis CARDIOVASCULAR: Denies chest pain or pressure. RESPIRATORY: No shortness of breath. GASTROINTESTINAL: See HPI for pertinent findings HEMATOLOGIC: Denies bleeding disorders. GENITOURINARY: Denies any blood in urine or increased urinary frequency. SKIN: Denies pruitis. Denies rash. PHYSICAL EXAM: VITAL SIGNS: Reviewed GENERAL: Well-developed in no acute distress. HEENT: No sclera icterus. Extraocular movements grossly intact. Moist buccal mucosa. Head is atraumatic, normocephalic. No nasal drainage. ABDOMEN: Soft. Nondistended and nontender. NEUROLOGIC: Alert and oriented. Cranial nerves II through XII grossly intact. LABORATORY DATA: WBC is 13.6 hgb 11 platelets 413 Sodium is 1:30 potassium is 3.4 creatinine 0.48 Stool for occult blood positive IMAGING: ASSESSMENT: 1. Acute GI bleed with red blood per rectum. Hemoglobin stable PLAN: -Patient scheduled for EGD and colonoscopy on Sunday with Dr. ricci -Hold aspirin -Agree with discontinuing subcu heparin -Continue monitoring hemoglobin -Continue to monitor for any signs or symptoms of bleeding -Continue PPI Physician [employer] note has been reviewed by physician. Signing provider agrees with the documented findings, assessment, and plan of care. Past Medical History Past Medical History: Seizure Disorder History of Any Multi-Drug Resistant Organisms: None Reported Additional Past Surgical History / Comment(s): Right leg fracture repair Past Psychological History: No Psychological Hx Reported Smoking Status: Current every day smoker Past Alcohol Use History: None Reported, Daily Past Drug Use History: None Reported - Past Family History Mother Family Medical History: Coronary Artery Disease (CAD) Medications and Allergies Home Medications Medication Instructions Recorded Confirmed Type Metoprolol Tartrate [Lopressor] 100 mg PO BID tab 06/14/21 02/21/22 Rx Hydrocortisone Cream 1 applic TOPICAL BID PRN 12/08/21 02/21/22 History [Hydrocortisone 1% Cream] Albuterol Inhaler [Ventolin Hfa 2 puff INHALATION QID 30 Days #8 gm 03/09/22 Rx Inhaler] Amoxic-Pot Clav 875-125Mg 1 tab PO BID 7 Days #14 tab 03/09/22 Rx [Augmentin 875-125] Aspirin 81 mg PO DAILY #30 tab 03/09/22 Rx Fluconazole [Diflucan] 100 mg PO DAILY #5 tab 03/09/22 Rx Furosemide [Lasix] 40 mg PO DAILY #30 tab 03/09/22 Rx Omeprazole [PriLOSEC] 20 mg PO AC-BID #60 cap 03/09/22 Rx Tamsulosin [Flomax] 0.4 mg PO PC-BRKFST #21 cap 03/09/22 Rx Thiamine [Vitamin B-1] 100 mg PO DAILY #30 tab 03/09/22 Rx levETIRAcetam [Keppra] 1,000 mg PO Q12HR #120 tab 03/09/22 Rx predniSONE 10 mg PO DIRECTED #40 tab 03/09/22 Rx Allergies Allergy/AdvReac Type Severity Reaction Status Date / Time No Known Allergies Allergy Verified 03/07/22 11:18 Surgical - Exam Vital Signs Temp Pulse Resp BP Pulse Ox 97.5 F L 108 H 26 H 113/84 94 L 02/21/22 15:33 02/21/22 15:33 02/21/22 15:33 02/21/22 15:33 02/21/22 15:33 Results - Labs 03/10/22 06:37 03/09/22 08:12 Abnormal Lab Results - Last 24 Hours (Table) 0103/09/22 03/10/22 Range/Units 16:26 20:19 06:37 WBC 13.6 H (3.8-10.6) k/uL RBC 3.90 L (4.30-5.90) m/uL Hgb 11.0 L (13.0-17.5) gm/dL Hct 35.4 L (39.0-53.0) % Neutrophils # 10.3 H (1.3-7.7) k/uL Monocytes # 1.1 H (0-1.0) k/uL POC Glucose (mg/dL) 116 H 151 H (70-110) mg/dL Microbiology - Last 24 Hours (Table) 03/07/22 11:49 CSF Gram Stain - Preliminary Cerebral Spinal Fluid CSF Culture - Preliminary
--- NOTE | 2022-03-10 15:24 | P.PN ---
Subjective Progress Note Date: 03/10/22 Principal diagnosis: Aspiration pneumonia Patient is a 61-year-old male with a past medical history significant for chronic on both abuse seizure disorder noncompliant with his seizure medication patient was brought into the ER with acute onset of seizure , patient did have elevated white count and evidence of multifocal infiltrating mostly in the left perihilar region concerning for possible aspiration pneumonia. On today's evaluation is 03/10/2022, the patient denies any fever or any chills, the patient is breathing comfortably on room air , the patient denies any chest pain , the patient did have occasional cough but no sputum production , the patient denies any nausea or vomiting no abdominal pain or diarrhea, patient discharge is port on hold because of GI bleed with the plan. EGD colonoscopy on Sunday Objective - Vital Signs Vital signs: Vital Signs Temp 97.0 F L 03/10/22 12:03 Pulse 78 03/10/22 12:03 Resp 16 03/10/22 12:03 BP 124/70 03/10/22 12:03 Pulse Ox 92 L 03/10/22 12:03 FiO2 40 02/27/22 15:56 Intake & Output 03/09/22 03/10/22 03/10/22 18:59 06:59 18:59 Intake Total 240 Output Total 400 1300 1175 Balance -476 -1180 -006 Intake: Oral 240 Output: Urine 400 1300 1175 Other: Voiding Method Urinal Urinal Urinal - Exam GENERAL DESCRIPTION: Middle-aged male lying in bed in no distress RESPIRATORY SYSTEM: Unlabored breathing , decreased breath sounds at bases HEART: S1 S2 regular rate and rhythm , ABDOMEN: Soft , no tenderness EXTREMITIES: No edema feet - Labs CBC & Chem 7: 03/10/22 06:37 03/09/22 08:12 Labs: Abnormal Lab Results - Last 24 Hours (Table) 03/09/22 03/09/22 03/10/22 Range/Units 16:26 20:19 06:37 WBC 13.6 H (3.8-10.6) k/uL RBC 3.90 L (4.30-5.90) m/uL Hgb 11.0 L (13.0-17.5) gm/dL Hct 35.4 L (39.0-53.0) % Neutrophils # 10.3 H (1.3-7.7) k/uL Monocytes # 1.1 H (0-1.0) k/uL POC Glucose (mg/dL) 116 H 151 H (70-110) mg/dL Microbiology - Last 24 Hours (Table) 03/07/22 11:49 CSF Gram Stain - Preliminary Cerebral Spinal Fluid CSF Culture - Preliminary Assessment and Plan (1) Pneumonia Current Visit: Yes Status: Acute Code(s): J18.9 - PNEUMONIA, UNSPECIFIED ORGANISM SNOMED Code(s): 248324176 Plan: 1patient presented to hospital with active seizures in this patient now with evidence of multifocal pneumonia mostly left perihilar region did have elevated vital concerning for pneumonia of aspiration etiology. 2positive blood culture finalized as staph epi likely skin contamination blood cultures repeated 02/25/2022 so far negative. 3patient has shown Prominent As for His Aspiration Pneumonia Is Concerned about Developing Possible GI Bleed and Elevated White Count Could Be Reactive to GI Bleed We Will Recheck His Inflammatory Markers If Those Have Normalized May Consider Discontinuation of the Zosyn, we'll also repeat a chest x-ray Time with Patient: Less than 30
[2022-03-10 16:30] LABS: Glucose,Whole Blood 157 mg/dL (70-110)
[2022-03-10 20:08] LABS: Glucose,Whole Blood 144 mg/dL (70-110)
--- NOTE | 2022-03-10 21:26 | P.PN ---
Subjective Progress Note Date: 03/10/22 Patient was seen for a follow-up. Patient is reclining comfortably in the bed. Denies any headache, no numbness or tingling or visual problems. Offers no complaints. Patient's dysphagia has resolved. No seizures. Patient's sister and brother were present today. Patient's sister admits that patient has been drinking very heavily, although he has cut back drinking few months ago. Patient has developed bright red blood per stool. Patient undergoing EGD enteroscopy on Sunday. Patient admits to drinking only 1 or 2 beers per day. Denies excessive alcoholism. Objective - Vital Signs Vital signs: Vital Signs Temp 96.4 F L 03/10/22 13:32 Pulse 82 03/10/22 19:45 Resp 16 03/10/22 19:42 BP 111/66 03/10/22 19:42 Pulse Ox 97 03/10/22 19:42 FiO2 40 02/27/22 15:56 Intake & Output 03/10/22 03/10/22 03/11/22 06:59 18:59 06:59 Intake Total 358 Output Total 1300 2225 Balance -1300 -1867 Intake: Oral 358 Output: Urine 1300 2225 Other: Voiding Method Urinal Urinal Urinal # Voids 2 - Exam Patient is alert and awake, appears much more normal mentation. Patient states it is February 2022. He knows he is in [facility] and name of the current president Mr. King. Speech is slightly hoarse. No aphasia or dysarthria. Cranial nerve shows visual wang are full. Face is symmetric and tongue pro trudes the midline. Muscle strength is normal in the arms and legs except hip flexion which is 5-bi laterally. Left shoulder is weak related to arthritic change. - Labs CBC & Chem 7: 03/10/22 06:37 03/10/22 18:30 Labs: Abnormal Lab Results - Last 24 Hours (Table) 03/10/22 03/10/22 03/10/22 Range/Units 06:37 16:28 20:06 WBC 13.6 H (3.8-10.6) k/uL RBC 3.90 L (4.30-5.90) m/uL Hgb 11.0 L (13.0-17.5) gm/dL Hct 35.4 L (39.0-53.0) % Neutrophils # 10.3 H (1.3-7.7) k/uL Monocytes # 1.1 H (0-1.0) k/uL POC Glucose (mg/dL) 157 H 144 H (70-110) mg/dL Microbiology - Last 24 Hours (Table) 03/07/22 11:49 CSF Gram Stain - Preliminary Cerebral Spinal Fluid CSF Culture - Preliminary Assessment and Plan Assessment: * Seizure disorder, came with recurrent seizures (3). Seizures aborted with Versed 5 mg IV push. * Abnormal brain MRI, with abnormal signal with restricted diffusion in the right hippocampus and uncus. Probably favors sequela of patient's seizure. * History of alcoholism. Patient at present denies any regular alcoholism. He states that he just drinks 1-2 beers per night. Patient also takes Klonopin regularly, denies running out of it. No obvious cause/provoking factor identified for the seizure. * Dysphagia, resolved. * Pneumonia * Bacteremia with staph coagulase-negative, felt to be contaminant-per ID. * Feet ulcers * Tobacco use * Marijuana use * Coronary artery disease * GI bleed. Plan: * Continue Keppra. Patient has received a loading dose of Keppra 2000 mg in the ER, and will be maintained on Keppra 1000 mg twice a day. * Dysphagia has resolved. * EEG was abnormal due to presence of low amplitude sharp-appearing waves in the right frontotemporal region. This may suggest underlying cortical irritability and tendency for seizures. No electrographic seizure was recorded. * MRI of the brain without contrast revealed right hippocampus and uncus restricted diffusion is favored to represent sequela of patient's seizure. Other differential includes mesial temporal sclerosis, however it is felt to be less likely given no significant atrophic changes. Other etiologies include limbic encephalitis. Short-term follow-up MRI is recommended. I personally reviewed MRI, agree with the findings. * Start aspirin 81 mg daily, as there is abnormal signal on DWI in the right hippocampus. * 2-D echo from 03/24/2021 revealed normal left ventricular size, moderate miriam ntric LVH. EF is mild to moderately impaired 40-45%. Normal left atrial size. Mild aortic valve sclerosis with trace to mild AR. * Carotid Doppler revealed less than 50% stenosis of bilateral carotid bifurcation. Antegrade flow right vertebral artery. Left vertebral unable to visualize. * Lumbar puncture performed today, with WBC count 0, RBC 156, CSF glucose 86 and CSF protein 69(12-60). No evidence of encephalitis. CSF viral cultures negative. * NMDA antibodies < 1:10, which is normal/negative. * For pneumonia, patient currently on Zosyn. ID following. * No driving, climbing ladders, operating dangerous machineries or swimming. * Recommended abstinence from alcoholism, marijuana and tobacco use. * Patient undergoing EGD and colonoscopy on Sunday. * Neurologically clear for discharge. Neurology will sign off. Please reconsult if any other concerns.
[2022-03-11 06:11] LABS: Glucose,Whole Blood 99 mg/dL (70-110)
[2022-03-11] MEDS: INSULIN ASPART (NovoLOG) 100 UNIT/ML VIAL SQ SCH ×4 (06:18→20:25)
--- NOTE | 2022-03-11 07:21 | XR ---
EXAMINATION TYPE: XR chest 2V DATE OF EXAM: 03/11/2022 6:46 AM COMPARISON: Chest radiograph from one day prior. TECHNIQUE: XR chest 2V Frontal and lateral views of the chest. CLINICAL INDICATION:Male, 61 years old with history of Pneumonia; FINDINGS: Lungs/Pleura: Similar multifocal airspace opacities. No evidence of pneumothorax. There is blunting o f the costophrenic angles. Pulmonary vascularity: Unremarkable. Heart/mediastinum: Cardiomediastinal silhouette is unremarkable. Musculoskeletal: No acute osseous pathology. IMPRESSION: Similar scattered airspace opacities and bilateral pleural effusions. Correlate for this heart failur e and/or pneumonia.
[2022-03-11] MEDS: PIPERACILLIN-TAZOBACTAM 3.375 GM in SODIUM CHLORIDE 0.9% 100 ML IVPB SCH (08:19)
[2022-03-11] MEDS: PANTOPRAZOLE 40 MG/10 ML VIAL IVP SCH (08:19)
[2022-03-11] MEDS: METOPROLOL TARTRATE 50 MG TAB PO SCH ×2 (08:20→20:25)
[2022-03-11] MEDS: predniSONE 20 MG TAB PO SCH (08:20)
[2022-03-11] MEDS: FLUCONAZOLE 100 MG TAB PO SCH (08:20)
[2022-03-11] MEDS: THIAMINE 100 MG TAB PO SCH (08:20)
[2022-03-11] MEDS: levETIRAcetam 500 MG TAB PO SCH ×2 (08:20→20:25)
[2022-03-11] MEDS: TAMSULOSIN 0.4 MG CAP.ER.24H PO SCH (08:20)
[2022-03-11] MEDS: FUROSEMIDE 40 MG TAB PO SCH (08:20)
[2022-03-11 08:46] LABS: Basophils % (A) 0 %; Eosinophils # (A) 0.1 k/uL (0-0.7); Eosinophils % (A) 1 %; HCT 37.1 % (39.0-53.0); HGB 11.6 gm/dL (13.0-17.5); Hypochromasia Slight; Lymphocytes # (A) 1.9 k/uL (1.0-4.8); Lymphocytes % (A) 14 %; MCH 28.7 pg (25.0-35.0); MCHC 31.3 g/dL (31.0-37.0); MCV 91.8 fL (80.0-100.0); Mean Platelet Volume 8.5; Monocytes % (A) 8 %; Neutrophils # (A) 9.8 k/uL (1.3-7.7); Neutrophils % (A) 76 %; Platelet Count 418 k/uL (150-450); RBC 4.04 m/uL (4.30-5.90); RDW 13.7 % (11.5-15.5)
[2022-03-11] MEDS: IPRATROPIUM-ALBUTEROL 3 ML NEB INHALATION SCH ×4 (08:49→20:57)
[2022-03-11 09:22] LABS: ALT 55 U/L (4-49); AST 30 U/L (17-59); African American GFR (CKD) >90 (>60 ml/min/1.73 sqM); Alkaline Phosphatase 61 U/L (38-126); Anion Gap 2 mmol/L; Blood Urea Nitrogen 10 mg/dL (9-20); Calcium 8.2 mg/dL (8.4-10.2); Carbon Dioxide 33 mmol/L (22-30); Chloride 96 mmol/L (98-107); Glucose 100 mg/dL (74-99); Non-African American GFR(CKD) >90 (>60 ml/min/1.73 sqM); Potassium 3.9 mmol/L (3.5-5.1); Sodium 131 mmol/L (137-145); Total Bilirubin 0.5 mg/dL (0.2-1.3); Total Protein 5.9 g/dL (6.3-8.2)
--- NOTE | 2022-03-11 10:45 | P.PN ---
Progress Note - Text Progress Note Date: 03/11/22 Patient remains stable. There is no acute changes. On exam vital signs are still. Abdomen soft. Patient for EGD colonoscopy on Sunday.
[2022-03-11 11:12] LABS: C Reactive Protein 0.8 mg/dL (<1.0)
[2022-03-11 11:32] LABS: Glucose,Whole Blood 132 mg/dL (70-110)
--- NOTE | 2022-03-11 14:06 | P.PN ---
Subjective Progress Note Date: 03/11/22 61-year-old male with a known history of seizure disorder, currently with a smoker and current alcohol abuse and currently not on any antiepileptic drugs was brought to ER by ambulance due to seizures.. Patient was also having chronic foot wounds and is on follow-up with wound care center. Patient is also noncompliant with follow-up and medications. Apparently patient had 3 episodes of seizures within an hour and has been acting differently. Patient's parents called EMS. Upon arrival to the ER patient was having leftward gaze deviation and was actively seizing. Patient was given 5 mg of IV Versed and seizure stopped. Patient was postictal. Patient is still drowsy and lethargic and unable to provide history. CT head and cervical spine showed no acute intracranial process. Nonspecific white matter changes likely secondary to chronic small vessel ischemic disease. No evidence of cervical spine fracture. Mild COPD changes with intralobular septal thickening and patchy groundglass opacities within the bilateral upper lobes concerning for infectious/infectious inflammatory process. Chest x-ray showed multifocal airspace opacities most pronounced on the left hilar region. Findings concerning for pneumonia. Foot x-ray showed no evidence of acute fracture. No osteomyelitis. Multifocal osteoarthrosis changes. EKG showed sinus tachycardia. Laboratory data showed WBC 18.6 hemoglobin 13.1 and lipase 471 2124 potassium 4.9 chloride 96 bicarb is 19 BUN 16 creatinine 0.66 and blood sug ar is 2631 lactic acid 7.9 and albumin 2.9 serum alcohol level is less than 10 and influenza AB and RSV PCR and COVID-19 not detected. Patient is currently ER and requiring oxygen at 6 L via nasal cannula. 24 hour interval change 03/01/2022 Patient is seen and evaluated in follow-up on the selective care unit. Awake and alert in no acute distress; maintaining O2 saturations in the 90s on 2 L/m per nasal cannula. His main complaint is that of fatigue. No worsening s hortness of breath, cough or congestion. -- Chest x-ray reveals moderate central vascular congestion with small to moderate right pleural effusion and tiny left pleural effusion. He has D5W at 75 mL per hour. - Follow-up blood culture reveals no growth. Urine culture revealed no growth. ProBNP 18,500. Patient received Lasix 40 mg IV 1; echocardiogram is recommended - Currently on bronchodilators. Antibiotics in the form of Zosyn. Heparin for DVT prophylaxis. Patient underwent radium swallow which did not reveal any aspiration -- patient was switched to oral Lasix 20 mg by mouth daily. He has a incentive spirometer. He also has a flutter valve. IV fluids are in the form of normal saline at rate of 50 mL an hour. He has a chronic smoker. He is using DuoNeb nebulized treatments and this will be switched to [id number] every 4 hours. - Pulmonary service recommending to continue with current management with further recommendations once echocardiogram results aren't available -- Patient has been evaluated by cardiology for tachycardia and metoprolol has been resumed at 100 mg twice a day - Patient is recommended abstinence from alcohol and tobacco use -- Possible discharge in next 24 hours once cleared by pulmonary service 03/02/2022 Patient is a pleasant 61 years old male with multiple medical problems was presented initially with breakthrough seizure, patient has insight. He denies any specific symptoms. Patient has been followed by neurologist and Then Keppra, MRI of the brain showing sequelae of seizures with neurological deficits and suspicious for CVA felt less likely by neurologist. Lumbar puncture still pending. Other than that patient reports improvement, he is eating better, no respiratory symptoms, his weakness is better. Calle catheter still in place which was placed on 02/25. Patient denies any depression. Resume the care of the patient 03/06/2022 Patient awake sitting up in bed, mildly tachypneic, mildly confused Patient denies chest pain or significant dyspnea. He still feels weak. He tolerates that well. No Calle catheter. He is saturating 95% on 2 L oxygen via nasal cannula I talked to him about going to rehab and he looks agreeable for short-term. Patient remains on IV Lasix, IV Solu-Medrol and Zosyn which can't be switched to oral antibiotics upon discharge Hypokalemia would be replaced per protocol We will follow-up with the neurologist if any further recommendation, discussed with the staff 03/07/2022 patient clinically doing well, he denies any specific symptoms, his mentation is back to baseline. Vitals and labs are reviewed and looks stable, low potassium and magnesium replaced Patient remains on IV Lasix, IV Solu-Medrol, Zosyn. Also is on Keppra Pending lumbar puncture recommended by neurologist Heparin placed on hold for lumbar puncture, discussed with the staff. Last dose received 03/06/2022 03/08/2022 Patient awake alert, no chest pain no dyspnea. Patient had lumbar puncture yesterday, he denies any back pain today he told me he was able to walk to the bathroom by himself using the walker with no difficulty. No new weakness or numbness. However the patient informed me that he had bloody bowel movement, I discussed with the staff and the patient on the same but it was not witnessed. Therefore we going to order occult blood in stool and anemia workup. Hemoglobin today was 10.1 compared to 10.[address] anemia workup. CSF culture pending, currently on Zosyn and she is switched to Augmentin upon discharge. Also patient men's on IV Lasix 40 mg twice daily, Solu-Medrol 60 mg, and Zosyn. We change her Pepcid to Protonix today. Patient also on aspirin 81 mg added during this admission. Discontinue subcutaneous heparin for possible GI bleed 03/09/2022 Patient was asymptomatic However patient occult blood in stool came back positive Hemoglobin 11.4 Consulted surgery team 03/10/2022 Patient denies any specific symptoms but he reports another blood in his bowel movement today, patient says that there are streaks of blood in his stool However patient vitals and hemoglobin is stable at 11.0. Patient currently on Protonix Also he is on baby aspirin recommended by neurologist Surgical team consult Patient remains on oral Lasix, prednisone, Zosyn which can be changed Augmentin for discharge 03/11. Patient seen and examined. Hemoglobin is stable. No acute issues overnight. Vital signs stable REVIEW OF SYSTEMS: CONSTITUTIONAL: No fever, no malaise,. CARDIOVASCULAR: No chest pain, no palpitations, no syncope. PULMONARY: No shortness of breath, no cough, GASTROINTESTINAL: No diarrhea, no nausea, no vomiting, no abdominal pain. NEUROLOGICAL: No headaches, no weakness, PHYSICAL EXAMINATION: GENERAL: The patient is alert and oriented x3, not in any acute distress. Well developed, well nourished. HEENT: Pupils are round and equally reacting to light. EOMI. No scleral icterus. No conjunctival pallor. Normocephalic, atraumatic. No pharyngeal erythema. No thyromegaly. CARDIOVASCULAR: S1 and S2 present. No murmurs, rubs, or gallops. PULMONARY: Chest is clear to auscultation, no wheezing or crackles. ABDOMEN: Soft, nontender, nondistended, normoactive bowel sounds. No palpable organomegaly. MUSCULOSKELETAL: No joint swelling or deformity. EXTREMITIES: No cyanosis, clubbing, or pedal edema. NEUROLOGICAL: Gross neurological examination did not reveal any focal deficits. SKIN: No rashes. Assessment and plan GI bleed Acute Seizure disorder with hx of recurrent seizures. Noncompliant with medi cations. Bilateral upper lobe pneumonia concerning for aspiration pneumonia Sepsis secondary above Severe lactic acidosis 7.9 on admission, resolved Acute hypoxemic respiratory failure was on BIPAP currently requiring 2L nasal cannula hyponatremia Alcohol abuse History of marijuana use Ongoing nicotine addiction Coagulase-negative staph aureus bacteremia likely contamination Hypertension Sinus tachycardia Chronic lower extremity skin changes/wounds. Plan: Monitor vital signs Monitor CBC Monitor CMP Patient being scheduled for EGD and colonoscopy on Sunday Surgery team consult, continue with aspirin now recommended by neurologist with close monitoring of hemoglobin CSF results reviewed, patient is cleared by urologist by neurologist Anemia workup and monitor hemoglobin. Continue Protonix Continue with Keppra Continue with blood pressure medication Continue with Lasix. Antibiotics discontinued by ID Cardiology team, infectious disease and pulmonary team already sent of the case. Objective - Vital Signs Vital signs: Vital Signs Temp 99.0 F 03/11/22 11:14 Pulse 88 03/11/22 12:10 Resp 16 03/11/22 11:14 BP 112/62 03/11/22 11:14 Pulse Ox 94 L 03/11/22 11:14 FiO2 40 02/27/22 15:56 Intake & Output 03/10/22 03/11/22 03/11/22 18:59 06:59 18:59 Intake Total 358 118 Output Total 2225 975 1200 Balance -1867 -975 -1082 Intake: Oral 358 118 Output: Urine 2225 975 1200 Other: Voiding Method Urinal Urinal Urinal # Voids 2 - Labs CBC & Chem 7: 03/11/22 07:54 03/11/22 07:54 Labs: Abnormal Lab Results - Last 24 Hours (Table) 03/10/22 03/10/22 03/11/22 Range/Units 16:28 20:06 07:54 WBC 13.0 H (3.8-10.6) k/uL RBC 4.04 L (4.30-5.90) m/uL Hgb 11.6 L (13.0-17.5) gm/dL Hct 37.1 L (39.0-53.0) % Neutrophils # 9.8 H (1.3-7.7) k/uL Sodium (137-145) mmol/L Chloride (98-107) mmol/L Carbon Dioxide (22-30) mmol/L Creatinine (0.66-1.25) mg/dL Glucose (74-99) mg/dL POC Glucose (mg/dL) 157 H 144 H (70-110) mg/dL Calcium (8.4-10.2) mg/dL ALT (4-49) U/L Total Protein (6.3-8.2) g/dL Albumin (3.5-5.0) g/dL 03/11/22 03/11/22 Range/Units 07:54 11:31 WBC (3.8-10.6) k/uL RBC (4.30-5.90) m/uL Hgb (13.0-17.5) gm/dL Hct (39.0-53.0) % Neutrophils # (1.3-7.7) k/uL Sodium 131 L (137-145) mmol/L Chloride 96 L (98-107) mmol/L Carbon Dioxide 33 H (22-30) mmol/L Creatinine 0.57 L (0.66-1.25) mg/dL Glucose 100 H (74-99) mg/dL POC Glucose (mg/dL) 132 H (70-110) mg/dL Calcium 8.2 L (8.4-10.2) mg/dL ALT 55 H (4-49) U/L Total Protein 5.9 L (6.3-8.2) g/dL Albumin 3.0 L (3.5-5.0) g/dL Microbiology - Last 24 Hours (Table) 03/07/22 11:49 CSF Gram Stain - Final Cerebral Spinal Fluid CSF Culture - Final
[2022-03-11 16:40] LABS: Glucose,Whole Blood 196 mg/dL (70-110)
--- NOTE | 2022-03-11 19:24 | P.PN ---
Subjective Progress Note Date: 03/11/22 Principal diagnosis: Consultation note Mar 11, 2022 He was seen briefly today with his preparation for GI prior to discharge. He has recovered from his sepsis and pneurmonia. On further inquiry, his seizure was related to his heavy alcohol use whichrun an intermittent course. HE was determined to free himself form negative peer infleunce : he has been abstinent from alcohol x 1 months due to the medical admisison. He was insterested to go through AA group and talked about how he was eager to return home with support form his extended family. Diagnosis: Depressive disorder NOS , alcohol use disorder, Moderate severity with medical complications tika withdrawal seizure MSE: he was resting iin a relaxed manner in his bed. and was lucid cohrent talking freely about his recovery and his alcohol use.Intact sensorium. Affect: slightly anxious but otherwise unremarkable. range affect; normal. No perceptual disturbance. No suicidal or homicidal ideation. No disjointed speech or loosning of assocatioins. Cog; Oriented. fair insight and judgment management Plan; 1. encourage pt to continuse AA. 2. adhernce towards abstinence model 3. reinforce peer support Objective - Vital Signs Vital signs: Vital Signs Temp 98.3 F 03/11/22 15:11 Pulse 82 03/11/22 15:29 Resp 16 03/11/22 15:29 BP 118/74 03/11/22 15:11 Pulse Ox 95 03/11/22 15:11 FiO2 40 02/27/22 15:56 Intake & Output 03/11/22 03/11/22 03/12/22 06:59 18:59 06:59 Intake Total 118 Output Total 975 1500 Balance -975 -1382 Intake: Oral 118 Output: Urine 975 1500 Other: Voiding Method Urinal Urinal # Voids 1 - Labs CBC & Chem 7: 03/11/22 07:54 03/11/22 07:54 Labs: Abnormal Lab Results - Last 24 Hours (Table) 03/10/22 03/11/22 03/11/22 Range/Units 20:06 07:54 07:54 WBC 13.0 H (3.8-10.6) k/uL RBC 4.04 L (4.30-5.90) m/uL Hgb 11.6 L (13.0-17.5) gm/dL Hct 37.1 L (39.0-53.0) % Neutrophils # 9.8 H (1.3-7.7) k/uL Sodium 131 L (137-145) mmol/L Chloride 96 L (98-107) mmol/L Carbon Dioxide 33 H (22-30) mmol/L Creatinine 0.57 L (0.66-1.25) mg/dL Glucose 100 H (74-99) mg/dL POC Glucose (mg/dL) 144 H (70-110) mg/dL Calcium 8.2 L (8.4-10.2) mg/dL ALT 55 H (4-49) U/L Total Protein 5.9 L (6.3-8.2) g/dL Albumin 3.0 L (3.5-5.0) g/dL 03/11/22 03/11/22 Range/Units 11:31 16:38 WBC (3.8-10.6) k/uL RBC (4.30-5.90) m/uL Hgb (13.0-17.5) gm/dL Hct (39.0-53.0) % Neutrophils # (1.3-7.7) k/uL Sodium (137-145) mmol/L Chloride (98-107) mmol/L Carbon Dioxide (22-30) mmol/L Creatinine (0.66-1.25) mg/dL Glucose (74-99) mg/dL POC Glucose (mg/dL) 132 H 196 H (70-110) mg/dL Calcium (8.4-10.2) mg/dL ALT (4-49) U/L Total Protein (6.3-8.2) g/dL Albumin (3.5-5.0) g/dL Microbiology - Last 24 Hours (Table) 03/07/22 11:49 CSF Gram Stain - Final Cerebral Spinal Fluid CSF Culture - Final
[2022-03-11 19:53] LABS: Glucose,Whole Blood 193 mg/dL (70-110)
[2022-03-12 05:56] LABS: Glucose,Whole Blood 79 mg/dL (70-110)
[2022-03-12 05:56] LABS: Basophils # (A) 0.1 k/uL (0-0.2); Basophils % (A) 0 %; Eosinophils # (A) 0.1 k/uL (0-0.7); Eosinophils % (A) 1 %; HCT 33.5 % (39.0-53.0); HGB 10.6 gm/dL (13.0-17.5); Lymphocytes # (A) 1.7 k/uL (1.0-4.8); Lymphocytes % (A) 14 %; MCH 28.5 pg (25.0-35.0); MCHC 31.5 g/dL (31.0-37.0); MCV 90.5 fL (80.0-100.0); Mean Platelet Volume 8.5; Monocytes # (A) 0.9 k/uL (0-1.0); Monocytes % (A) 7 %; Neutrophils % (A) 75 %; Platelet Count 438 k/uL (150-450); RDW 13.8 % (11.5-15.5); WBC 12.1 k/uL (3.8-10.6)
[2022-03-12] MEDS: INSULIN ASPART (NovoLOG) 100 UNIT/ML VIAL SQ SCH ×3 (05:56→16:44)
[2022-03-12 06:08] LABS: ALT 52 U/L (4-49); AST 24 U/L (17-59); African American GFR (CKD) >90 (>60 ml/min/1.73 sqM); Albumin 2.8 g/dL (3.5-5.0); Alkaline Phosphatase 57 U/L (38-126); Anion Gap 0 mmol/L; Blood Urea Nitrogen 9 mg/dL (9-20); Carbon Dioxide 32 mmol/L (22-30); Chloride 96 mmol/L (98-107); Glucose 83 mg/dL (74-99); Non-African American GFR(CKD) >90 (>60 ml/min/1.73 sqM); Potassium 3.7 mmol/L (3.5-5.1); Sodium 128 mmol/L (137-145); Total Bilirubin 0.4 mg/dL (0.2-1.3); Total Protein 5.6 g/dL (6.3-8.2)
[2022-03-12] MEDS: IPRATROPIUM-ALBUTEROL 3 ML NEB INHALATION SCH ×4 (08:30→19:59)
[2022-03-12] MEDS ORDERED: PEG 3350 (236 GM/BTL) + LYTES 4,000 ML BOTTLE PO ONE (09:00)
[2022-03-12] MEDS: METOPROLOL TARTRATE 50 MG TAB PO SCH ×2 (09:14→22:32)
[2022-03-12] MEDS: TAMSULOSIN 0.4 MG CAP.ER.24H PO SCH (09:14)
[2022-03-12] MEDS: FUROSEMIDE 40 MG TAB PO SCH (09:15)
[2022-03-12] MEDS: PANTOPRAZOLE 40 MG/10 ML VIAL IVP SCH (09:15)
[2022-03-12] MEDS: FLUCONAZOLE 100 MG TAB PO SCH (09:15)
[2022-03-12] MEDS: THIAMINE 100 MG TAB PO SCH (09:15)
[2022-03-12] MEDS: predniSONE 20 MG TAB PO SCH (09:15)
[2022-03-12] MEDS: levETIRAcetam 500 MG TAB PO SCH ×2 (09:15→22:31)
--- NOTE | 2022-03-12 11:18 | P.PN ---
Progress Note - Text Progress Note Date: 03/12/22 Patient [place] stable. On exam vital signs are stable. Abdomen soft. There is no sign of GI bleed. It. Patient will undergo EGD and colonoscopy in the a.m.
[2022-03-12 11:34] LABS: Glucose,Whole Blood 103 mg/dL (70-110)
--- NOTE | 2022-03-12 12:41 | P.PN ---
Subjective Progress Note Date: 03/12/22 61-year-old male with a known history of seizure disorder, currently with a smoker and current alcohol abuse and currently not on any antiepileptic drugs was brought to ER by ambulance due to seizures.. Patient was also having chronic foot wounds and is on follow-up with wound care center. Patient is also noncompliant with follow-up and medications. Apparently patient had 3 episodes of seizures within an hour and has been acting differently. Patient's parents called EMS. Upon arrival to the ER patient was having leftward gaze deviation and was actively seizing. Patient was given 5 mg of IV Versed and seizure stopped. Patient was postictal. Patient is still drowsy and lethargic and unable to provide history. CT head and cervical spine showed no acute intracranial process. Nonspecific white matter changes likely secondary to chronic small vessel ischemic disease. No evidence of cervical spine fracture. Mild COPD changes with intralobular septal thickening and patchy groundglass opacities within the bilateral upper lobes concerning for infectious/infectious inflammatory process. Chest x-ray showed multifocal airspace opacities most pronounced on the left hilar region. Findings concerning for pneumonia. Foot x-ray showed no evidence of acute fracture. No osteomyelitis. Multifocal osteoarthrosis changes. EKG showed sinus tachycardia. Laboratory data showed WBC 18.6 hemoglobin 13.1 and lipase 471 2124 potassium 4.9 chloride 96 bicarb is 19 BUN 16 creatinine 0.66 and blood sug ar is 2631 lactic acid 7.9 and albumin 2.9 serum alcohol level is less than 10 and influenza AB and RSV PCR and COVID-19 not detected. Patient is currently ER and requiring oxygen at 6 L via nasal cannula. 24 hour interval change 03/01/2022 Patient is seen and evaluated in follow-up on the selective care unit. Awake and alert in no acute distress; maintaining O2 saturations in the 90s on 2 L/m per nasal cannula. His main complaint is that of fatigue. No worsening s hortness of breath, cough or congestion. -- Chest x-ray reveals moderate central vascular congestion with small to moderate right pleural effusion and tiny left pleural effusion. He has D5W at 75 mL per hour. - Follow-up blood culture reveals no growth. Urine culture revealed no growth. ProBNP 18,500. Patient received Lasix 40 mg IV 1; echocardiogram is recommended - Currently on bronchodilators. Antibiotics in the form of Zosyn. Heparin for DVT prophylaxis. Patient underwent radium swallow which did not reveal any aspiration -- patient was switched to oral Lasix 20 mg by mouth daily. He has a incentive spirometer. He also has a flutter valve. IV fluids are in the form of normal saline at rate of 50 mL an hour. He has a chronic smoker. He is using DuoNeb nebulized treatments and this will be switched to [id number] every 4 hours. - Pulmonary service recommending to continue with current management with further recommendations once echocardiogram results aren't available -- Patient has been evaluated by cardiology for tachycardia and metoprolol has been resumed at 100 mg twice a day - Patient is recommended abstinence from alcohol and tobacco use -- Possible discharge in next 24 hours once cleared by pulmonary service 03/02/2022 Patient is a pleasant 61 years old male with multiple medical problems was presented initially with breakthrough seizure, patient has insight. He denies any specific symptoms. Patient has been followed by neurologist and Then Keppra, MRI of the brain showing sequelae of seizures with neurological deficits and suspicious for CVA felt less likely by neurologist. Lumbar puncture still pending. Other than that patient reports improvement, he is eating better, no respiratory symptoms, his weakness is better. Calle catheter still in place which was placed on 02/25. Patient denies any depression. Resume the care of the patient 03/06/2022 Patient awake sitting up in bed, mildly tachypneic, mildly confused Patient denies chest pain or significant dyspnea. He still feels weak. He tolerates that well. No Calle catheter. He is saturating 95% on 2 L oxygen via nasal cannula I talked to him about going to rehab and he looks agreeable for short-term. Patient remains on IV Lasix, IV Solu-Medrol and Zosyn which can't be switched to oral antibiotics upon discharge Hypokalemia would be replaced per protocol We will follow-up with the neurologist if any further recommendation, discussed with the staff 03/07/2022 patient clinically doing well, he denies any specific symptoms, his mentation is back to baseline. Vitals and labs are reviewed and looks stable, low potassium and magnesium replaced Patient remains on IV Lasix, IV Solu-Medrol, Zosyn. Also is on Keppra Pending lumbar puncture recommended by neurologist Heparin placed on hold for lumbar puncture, discussed with the staff. Last dose received 03/06/2022 03/08/2022 Patient awake alert, no chest pain no dyspnea. Patient had lumbar puncture yesterday, he denies any back pain today he told me he was able to walk to the bathroom by himself using the walker with no difficulty. No new weakness or numbness. However the patient informed me that he had bloody bowel movement, I discussed with the staff and the patient on the same but it was not witnessed. Therefore we going to order occult blood in stool and anemia workup. Hemoglobin today was 10.1 compared to 10.[address] the [address] anemia workup. CSF culture pending, currently on Zosyn and she is switched to Augmentin upon discharge. Also patient men's on IV Lasix 40 mg twice daily, Solu-Medrol 60 mg, and Zosyn. We change her Pepcid to Protonix today. Patient also on aspirin 81 mg added during this admission. Discontinue subcutaneous heparin for possible GI bleed 03/09/2022 Patient was asymptomatic However patient occult blood in stool came back positive Hemoglobin 11.4 Consulted surgery team 03/10/2022 Patient denies any specific symptoms but he reports another blood in his bowel movement today, patient says that there are streaks of blood in his stool However patient vitals and hemoglobin is stable at 11.0. Patient currently on Protonix Also he is on baby aspirin recommended by neurologist Surgical team consult Patient remains on oral Lasix, prednisone, Zosyn which can be changed Augmentin for discharge 03/11. Patient seen and examined. Hemoglobin is stable. No acute issues overnight. Vital signs stable 03/12. Patient seen and examined. No episode of blood in the stool. States he feels better. No nausea or vomiting REVIEW OF SYSTEMS: CONSTITUTIONAL: No fever, no malaise,. CARDIOVASCULAR: No chest pain, no palpitations, no syncope. PULMONARY: No shortness of breath, no cough, GASTROINTESTINAL: No diarrhea, no nausea, no vomiting, no abdominal pain. NEUROLOGICAL: No headaches, no weakness, PHYSICAL EXAMINATION: GENERAL: The patient is alert and oriented x3, not in any acute distress. Well developed, well nourished. HEENT: Pupils are round and equally reacting to light. EOMI. No scleral icterus. No conjunctival pallor. Normocephalic, atraumatic. No pharyngeal erythema. No thyromegaly. CARDIOVASCULAR: S1 and S2 present. No murmurs, rubs, or gallops. PULMONARY: Chest is clear to auscultation, no wheezing or crackles. ABDOMEN: Soft, nontender, nondistended, normoactive bowel sounds. No palpable organomegaly. MUSCULOSKELETAL: No joint swelling or deformity. EXTREMITIES: No cyanosis, clubbing, or pedal edema. NEUROLOGICAL: Gross neurological examination did not reveal any focal deficits. SKIN: No rashes. Assessment and plan GI bleed Acute Seizure disorder with hx of recurrent seizures. Noncompliant with medications. Bilateral upper lobe pneumonia concerning for aspiration pneumonia Sepsis secondary above Severe lactic acidosis 7.9 on admission, resolved Acute hypoxemic respiratory failure was on BIPAP currently requiring 2L nasal cannula hyponatremia Alcohol abuse History of marijuana use Ongoing nicotine addiction Coagulase-negative staph aureus bacteremia likely contamination Hypertension Sinus tachycardia Chronic lower extremity skin changes/wounds. Plan: Monitor vital signs Monitor CBC Monitor CMP Being scheduled for EGD and endoscopy in the morning, currently being prepped for colonoscopy Surgery team consult, continue with aspirin now recommended by neurologist with close monitoring of hemoglobin CSF results reviewed, patient is cleared by urologist by neurologist Anemia workup and monitor hemoglobin. Continue Protonix Continue with Keppra Continue with blood pressure medication Continue with Lasix. Antibiotics discontinued by ID Cardiology team, infectious disease and pulmonary team following Objective - Vital Signs Vital signs: Vital Signs Temp 98.7 F 03/12/22 11:37 Pulse 78 03/12/22 11:37 Resp 16 03/12/22 11:37 BP 120/74 03/12/22 11:37 Pulse Ox 95 03/12/22 11:37 FiO2 40 02/27/22 15:56 Intake & Output 03/11/22 03/12/22 03/12/22 18:59 06:59 18:59 Intake Total 118 10 Output Total 1500 1150 1725 Balance -2426 -1615 -1040 Intake: IV 10 Invasive Line 8 10 Oral 118 Output: Urine 1500 1150 1725 Other: Voiding Method Urinal Urinal Urinal # Voids 1 2 # Bowel Movements 1 - Labs CBC & Chem 7: 03/12/22 04:28 03/12/22 04:28 Labs: Abnormal Lab Results - Last 24 Hours (Table) 03/11/22 03/11/2203/12/23 Range/Units 16:38 19:52 04:28 WBC 12.1 H (3.8-10.6) k/uL RBC 3.70 L (4.30-5.90) m/uL Hgb 10.6 L (13.0-17.5) gm/dL Hct 33.5 L (39.0-53.0) % Neutrophils # 9.0 H (1.3-7.7) k/uL Sodium (137-145) mmol/L Chloride (98-107) mmol/L Carbon Dioxide (22-30) mmol/L Creatinine (0.66-1.25) mg/dL POC Glucose (mg/dL) 196 H 193 H (70-110) mg/dL Calcium (8.4-10.2) mg/dL ALT (4-49) U/L Total Protein (6.3-8.2) g/dL Albumin (3.5-5.0) g/dL 03/12/22 Range/Units 04:28 WBC (3.8-10.6) k/uL RBC (4.30-5.90) m/uL Hgb (13.0-17.5) gm/dL Hct (39.0-53.0) % Neutrophils # (1.3-7.7) k/uL Sodium 128 L (137-145) mmol/L Chloride 96 L (98-107) mmol/L Carbon Dioxide 32 H (22-30) mmol/L Creatinine 0.54 L (0.66-1.25) mg/dL POC Glucose (mg/dL) (70-110) mg/dL Calcium 8.0 L (8.4-10.2) mg/dL ALT 52 H (4-49) U/L Total Protein 5.6 L (6.3-8.2) g/dL Albumin 2.8 L (3.5-5.0) g/dL Microbiology - Last 24 Hours (Table) 03/07/22 11:49 CSF Gram Stain - Final Cerebral Spinal Fluid CSF Culture - Final
[2022-03-12 16:40] LABS: Glucose,Whole Blood 136 mg/dL (70-110)
[2022-03-12 19:47] LABS: Glucose,Whole Blood 141 mg/dL (70-110)
--- NOTE | 2022-03-12 21:50 | P.PN ---
Subjective Progress Note Date: 03/11/22 Principal diagnosis: Aspiration pneumonia Patient is a 61-year-old male with a past medical history significant for chronic on both abuse seizure disorder noncompliant with his seizure medication patient was brought into the ER with acute onset of seizure , patient did have elevated white count and evidence of multifocal infiltrating mostly in the left perihilar region concerning for possible aspiration pneumonia. On today's evaluation is 03/11/2022, the patient remains to be febrile, the patient is breathing comfortably on room air , the patient denies any chest pain , the patient did have occasional cough but no sputum production , the patient denies any nausea or vomiting no abdominal pain or diarrhea, no new symptoms Objective - Vital Signs Vital signs: Vital Signs Temp 99.0 F 03/11/22 11:14 Pulse 88 03/11/22 12:10 Resp 16 03/11/22 11:14 BP 112/62 03/11/22 11:14 Pulse Ox 94 L 03/11/22 11:14 FiO2 40 02/27/22 15:56 Intake & Output 03/10/22 03/11/22 03/11/22 18:59 06:59 18:59 Intake Total 358 118 Output Total 2225 975 1200 Balance -1867 -975 -1082 Intake: Oral 358 118 Output: Urine 2225 975 1200 Other: Voiding Method Urinal Urinal Urinal # Voids 2 - Exam GENERAL DESCRIPTION: Middle-aged male lying in bed in no distress RESPIRATORY SYSTEM: Unlabored breathing , decreased breath sounds at bases HEART: S1 S2 regular rate and rhythm , ABDOMEN: Soft , no tenderness EXTREMITIES: No edema feet - Labs CBC & Chem 7: 03/12/22 04:28 03/12/22 04:28 Labs: Abnormal Lab Results - Last 24 Hours (Table) 03/10/22 03/10/22 03/11/22 Range/Units 16:28 20:06 07:54 WBC 13.0 H (3.8-10.6) k/uL RBC 4.04 L (4.30-5.90) m/uL Hgb 11.6 L (13.0-17.5) gm/dL Hct 37.1 L (39.0-53.0) % Neutrophils # 9.8 H (1.3-7.7) k/uL Sodium (137-145) mmol/L Chloride (98-107) mmol/L Carbon Dioxide (22-30) mmol/L Creatinine (0.66-1.25) mg/dL Glucose (74-99) mg/dL POC Glucose (mg/dL) 157 H 144 H (70-110) mg/dL Calcium (8.4-10.2) mg/dL ALT (4-49) U/L Total Protein (6.3-8.2) g/dL Albumin (3.5-5.0) g/dL 03/11/22 03/11/22 Range/Units 07:54 11:31 WBC (3.8-10.6) k/uL RBC (4.30-5.90) m/uL Hgb (13.0-17.5) gm/dL Hct (39.0-53.0) % Neutrophils # (1.3-7.7) k/uL Sodium 131 L (137-145) mmol/L Chloride 96 L (98-107) mmol/L Carbon Dioxide 33 H (22-30) mmol/L Creatinine 0.57 L (0.66-1.25) mg/dL Glucose 100 H (74-99) mg/dL POC Glucose (mg/dL) 132 H (70-110) mg/dL Calcium 8.2 L (8.4-10.2) mg/dL ALT 55 H (4-49) U/L Total Protein 5.9 L (6.3-8.2) g/dL Albumin 3.0 L (3.5-5.0) g/dL Microbiology - Last 24 Hours (Table) 03/07/22 11:49 CSF Gram Stain - Final Cerebral Spinal Fluid CSF Culture - Final Assessment and Plan (1) Pneumonia Current Visit: Yes Status: Acute Code(s): J18.9 - PNEUMONIA, UNSPECIFIED ORGANISM SNOMED Code(s): 904038218 Plan: 1patient presented to hospital with active seizures in this patient now with evidence of multifocal pneumonia mostly left perihilar region did have elevated vital concerning for pneumonia of aspiration etiology. For which the patient has received adequate antibiotic therapy 2positive blood culture finalized as staph epi likely skin contamination blood cultures repeated 02/25/2022 so far negative. 3patient with leukocytosis possible thrush versus reactive to his GI bleed he will continue the patient on Diflucan and monitor white count closely Time with Patient: Less than 30
--- NOTE | 2022-03-12 21:51 | P.PN ---
Subjective Progress Note Date: 03/12/22 Principal diagnosis: Aspiration pneumonia Patient is a 61-year-old male with a past medical history significant for chronic on both abuse seizure disorder noncompliant with his seizure medication patient was brought into the ER with acute onset of seizure , patient did have elevated white count and evidence of multifocal infiltrating mostly in the left perihilar region concerning for possible aspiration pneumonia. On today's evaluation is 03/12/2022, the patient continues to be febrile, the patient is breathing comfortably on room air , the patient denies any chest pain , the patient denies any cough or sputum production no nausea no vomiting no abdominal pain no diarrhea overall feeling better Objective - Vital Signs Vital signs: Vital Signs Temp 97.7 F 03/12/22 15:50 Pulse 80 03/12/22 16:36 Resp 16 03/12/22 15:50 BP 119/71 03/12/22 15:50 Pulse Ox 95 03/12/22 15:50 FiO2 40 02/27/22 15:56 Intake & Output 03/11/22 03/12/22 03/12/22 18:59 06:59 18:59 Intake Total 118 380 Output Total 1500 1150 1825 Balance -1362 -6967 -8304 Intake: IV 20 Invasive Line 8 20 Oral 118 360 Output: Urine 1500 1150 1825 Other: Voiding Method Urinal Urinal Urinal # Voids 1 1 # Bowel Movements 1 1 - Exam GENERAL DESCRIPTION: Middle-aged male lying in bed in no distress RESPIRATORY SYSTEM: Unlabored breathing , decreased breath sounds at bases HEART: S1 S2 regular rate and rhythm , ABDOMEN: Soft , no tenderness EXTREMITIES: No edema feet - Labs CBC & Chem 7: 03/12/22 04:28 03/12/22 04:28 Labs: Abnormal Lab Results - Last 24 Hours (Table) 03/11/22 03/12/22 03/12/22 Range/Units 19:52 04:28 04:28 WBC 12.1 H (3.8-10.6) k/uL RBC 3.70 L (4.30-5.90) m/uL Hgb 10.6 L (13.0-17.5) gm/dL Hct 33.5 L (39.0-53.0) % Neutrophils # 9.0 H (1.3-7.7) k/uL Sodium 128 L (137-145) mmol/L Chloride 96 L (98-107) mmol/L Carbon Dioxide 32 H (22-30) mmol/L Creatinine 0.54 L (0.66-1.25) mg/dL POC Glucose (mg/dL) 193 H (70-110) mg/dL Calcium 8.0 L (8.4-10.2) mg/dL ALT 52 H (4-49) U/L Total Protein 5.6 L (6.3-8.2) g/dL Albumin 2.8 L (3.5-5.0) g/dL 03/12/22 Range/Units 16:38 WBC (3.8-10.6) k/uL RBC (4.30-5.90) m/uL Hgb (13.0-17.5) gm/dL Hct (39.0-53.0) % Neutrophils # (1.3-7.7) k/uL Sodium (137-145) mmol/L Chloride (98-107) mmol/L Carbon Dioxide (22-30) mmol/L Creatinine (0.66-1.25) mg/dL POC Glucose (mg/dL) 136 H (70-110) mg/dL Calcium (8.4-10.2) mg/dL ALT (4-49) U/L Total Protein (6.3-8.2) g/dL Albumin (3.5-5.0) g/dL Assessment and Plan (1) Pneumonia Current Visit: Yes Status: Acute Code(s): J18.9 - PNEUMONIA, UNSPECIFIED ORGANISM SNOMED Code(s): 615438026 Plan: 1patient presented to hospital with active seizures in this patient now with evidence of multifocal pneumonia mostly left perihilar region did have elevated vital concerning for pneumonia of aspiration etiology. For which the patient has received adequate antibiotic therapy 2positive blood culture finalized as staph epi likely skin contamination blood cultures repeated 02/25/2022 so far negative. 3patient with leukocytosis possible thrush versus reactive to his GI bleed, the patient white count is trending down to 12,000 today and monitor it closely continue with Diflucan Time with Patient: Less than 30
[2022-03-13 06:07] LABS: Glucose,Whole Blood 79 mg/dL (70-110)
[2022-03-13 06:49] LABS: HCT 32.1 % (39.0-53.0); HGB 10.2 gm/dL (13.0-17.5); MCH 28.2 pg (25.0-35.0); MCHC 31.7 g/dL (31.0-37.0); Mean Platelet Volume 8.3; Platelet Count 435 k/uL (150-450); WBC 12.8 k/uL (3.8-10.6)
[2022-03-13 07:03] LABS: ALT 56 U/L (4-49); AST 28 U/L (17-59); African American GFR (CKD) >90 (>60 ml/min/1.73 sqM); Albumin 2.5 g/dL (3.5-5.0); Alkaline Phosphatase 58 U/L (38-126); Anion Gap -1 mmol/L; Blood Urea Nitrogen 7 mg/dL (9-20); Carbon Dioxide 34 mmol/L (22-30); Chloride 98 mmol/L (98-107); Glucose 70 mg/dL (74-99); Non-African American GFR(CKD) >90 (>60 ml/min/1.73 sqM); Potassium 3.3 mmol/L (3.5-5.1); Sodium 131 mmol/L (137-145); Total Bilirubin 0.4 mg/dL (0.2-1.3)
[2022-03-13] MEDS: IPRATROPIUM-ALBUTEROL 3 ML NEB INHALATION SCH ×4 (08:02→19:32)
[2022-03-13] MEDS: PANTOPRAZOLE 40 MG/10 ML VIAL IVP SCH (08:28)
[2022-03-13] MEDS: THIAMINE 100 MG TAB PO SCH (08:28)
[2022-03-13] MEDS: FLUCONAZOLE 100 MG TAB PO SCH (08:28)
[2022-03-13] MEDS: INSULIN ASPART (NovoLOG) 100 UNIT/ML VIAL SQ SCH ×5 (08:28→20:10)
[2022-03-13] MEDS: TAMSULOSIN 0.4 MG CAP.ER.24H PO SCH (08:28)
[2022-03-13] MEDS: METOPROLOL TARTRATE 50 MG TAB PO SCH ×2 (08:28→20:10)
[2022-03-13] MEDS: levETIRAcetam 500 MG TAB PO SCH ×2 (08:28→20:10)
[2022-03-13] MEDS: predniSONE 20 MG TAB PO SCH (08:28)
[2022-03-13] MEDS: FUROSEMIDE 40 MG TAB PO SCH (08:28)
[2022-03-13 11:36] LABS: Glucose,Whole Blood 108 mg/dL (70-110)
[2022-03-13] MEDS ORDERED: Potassium Replacement Protocol 1 EACH MISC MISCELLANE PRN (11:48)
--- NOTE | 2022-03-13 11:50 | P.PN ---
Subjective Progress Note Date: 03/13/22 61-year-old male with a known history of seizure disorder, currently with a smoker and current alcohol abuse and currently not on any antiepileptic drugs was brought to ER by ambulance due to seizures.. Patient was also having chronic foot wounds and is on follow-up with wound care center. Patient is also noncompliant with follow-up and medications. Apparently patient had 3 episodes of seizures within an hour and has been acting differently. Patient's parents called EMS. Upon arrival to the ER patient was having leftward gaze deviation and was actively seizing. Patient was given 5 mg of IV Versed and seizure stopped. Patient was postictal. Patient is still drowsy and lethargic and unable to provide history. CT head and cervical spine showed no acute intracranial process. Nonspecific white matter changes likely secondary to chronic small vessel ischemic disease. No evidence of cervical spine fracture. Mild COPD changes with intralobular septal thickening and patchy groundglass opacities within the bilateral upper lobes concerning for infectious/infectious inflammatory process. Chest x-ray showed multifocal airspace opacities most pronounced on the left hilar region. Findings concerning for pneumonia. Foot x-ray showed no evidence of acute fracture. No osteomyelitis. Multifocal osteoarthrosis changes. EKG showed sinus tachycardia. Laboratory data showed WBC 18.6 hemoglobin 13.1 and lipase 471 2124 potassium 4.9 chloride 96 bicarb is 19 BUN 16 creatinine 0.66 and blood sug ar is 2631 lactic acid 7.9 and albumin 2.9 serum alcohol level is less than 10 and influenza AB and RSV PCR and COVID-19 not detected. Patient is currently ER and requiring oxygen at 6 L via nasal cannula. 24 hour interval change 03/01/2022 Patient is seen and evaluated in follow-up on the selective care unit. Awake and alert in no acute distress; maintaining O2 saturations in the 90s on 2 L/m per nasal cannula. His main complaint is that of fatigue. No worsening s hortness of breath, cough or congestion. -- Chest x-ray reveals moderate central vascular congestion with small to moderate right pleural effusion and tiny left pleural effusion. He has D5W at 75 mL per hour. - Follow-up blood culture reveals no growth. Urine culture revealed no growth. ProBNP 18,500. Patient received Lasix 40 mg IV 1; echocardiogram is recommended - Currently on bronchodilators. Antibiotics in the form of Zosyn. Heparin for DVT prophylaxis. Patient underwent radium swallow which did not reveal any aspiration -- patient was switched to oral Lasix 20 mg by mouth daily. He has a incentive spirometer. He also has a flutter valve. IV fluids are in the form of normal saline at rate of 50 mL an hour. He has a chronic smoker. He is using DuoNeb nebulized treatments and this will be switched to [id number] every 4 hours. - Pulmonary service recommending to continue with current management with further recommendations once echocardiogram results aren't available -- Patient has been evaluated by cardiology for tachycardia and metoprolol has been resumed at 100 mg twice a day - Patient is recommended abstinence from alcohol and tobacco use -- Possible discharge in next 24 hours once cleared by pulmonary service 03/02/2022 Patient is a pleasant 61 years old male with multiple medical problems was presented initially with breakthrough seizure, patient has insight. He denies any specific symptoms. Patient has been followed by neurologist and Then Keppra, MRI of the brain showing sequelae of seizures with neurological deficits and suspicious for CVA felt less likely by neurologist. Lumbar puncture still pending. Other than that patient reports improvement, he is eating better, no respiratory symptoms, his weakness is better. Calle catheter still in place which was placed on 02/25. Patient denies any depression. Resume the care of the patient 03/06/2022 Patient awake sitting up in bed, mildly tachypneic, mildly confused Patient denies chest pain or significant dyspnea. He still feels weak. He tolerates that well. No Calle catheter. He is saturating 95% on 2 L oxygen via nasal cannula I talked to him about going to rehab and he looks agreeable for short-term. Patient remains on IV Lasix, IV Solu-Medrol and Zosyn which can't be switched to oral antibiotics upon discharge Hypokalemia would be replaced per protocol We will follow-up with the neurologist if any further recommendation, discussed with the staff 03/07/2022 patient clinically doing well, he denies any specific symptoms, his mentation is back to baseline. Vitals and labs are reviewed and looks stable, low potassium and magnesium replaced Patient remains on IV Lasix, IV Solu-Medrol, Zosyn. Also is on Keppra Pending lumbar puncture recommended by neurologist Heparin placed on hold for lumbar puncture, discussed with the staff. Last dose received 03/06/2022 03/08/2022 Patient awake alert, no chest pain no dyspnea. Patient had lumbar puncture yesterday, he denies any back pain today he told me he was able to walk to the bathroom by himself using the walker with no difficulty. No new weakness or numbness. However the patient informed me that he had bloody bowel movement, I discussed with the staff and the patient on the same but it was not witnessed. Therefore we going to order occult blood in stool and anemia workup. Hemoglobin today was 10.1 compared to 10.[address] the [address] anemia workup. CSF culture pending, currently on Zosyn and she is switched to Augmentin upon discharge. Also patient men's on IV Lasix 40 mg twice daily, Solu-Medrol 60 mg, and Zosyn. We change her Pepcid to Protonix today. Patient also on aspirin 81 mg added during this admission. Discontinue subcutaneous heparin for possible GI bleed 03/09/2022 Patient was asymptomatic However patient occult blood in stool came back positive Hemoglobin 11.4 Consulted surgery team 03/10/2022 Patient denies any specific symptoms but he reports another blood in his bowel movement today, patient says that there are streaks of blood in his stool However patient vitals and hemoglobin is stable at 11.0. Patient currently on Protonix Also he is on baby aspirin recommended by neurologist Surgical team consult Patient remains on oral Lasix, prednisone, Zosyn which can be changed Augmentin for discharge 03/11. Patient seen and examined. Hemoglobin is stable. No acute issues overnight. Vital signs stable 03/12. Patient seen and examined. No episode of blood in the stool. States he feels better. No nausea or vomiting REVIEW OF SYSTEMS: CONSTITUTIONAL: No fever, no malaise,. CARDIOVASCULAR: No chest pain, no palpitations, no syncope. PULMONARY: No shortness of breath, no cough, GASTROINTESTINAL: No diarrhea, no nausea, no vomiting, no abdominal pain. NEUROLOGICAL: No headaches, no weakness, PHYSICAL EXAMINATION: GENERAL: The patient is alert and oriented x3, not in any acute distress. Well developed, well nourished. HEENT: Pupils are round and equally reacting to light. EOMI. No scleral icterus. No conjunctival pallor. Normocephalic, atraumatic. No pharyngeal erythema. No thyromegaly. CARDIOVASCULAR: S1 and S2 present. No murmurs, rubs, or gallops. PULMONARY: Chest is clear to auscultation, no wheezing or crackles. ABDOMEN: Soft, nontender, nondistended, normoactive bowel sounds. No palpable organomegaly. MUSCULOSKELETAL: No joint swelling or deformity. EXTREMITIES: No cyanosis, clubbing, or pedal edema. NEUROLOGICAL: Gross neurological examination did not reveal any focal deficits. SKIN: No rashes. Assessment and plan GI bleed Acute Seizure disorder with hx of recurrent seizures. Noncompliant with medications. Bilateral upper lobe pneumonia concerning for aspiration pneumonia Sepsis secondary above Severe lactic acidosis 7.9 on admission, resolved Acute hypoxemic respiratory failure was on BIPAP currently requiring 2L nasal cannula hyponatremia Alcohol abuse History of marijuana use Ongoing nicotine addiction Coagulase-negative staph aureus bacteremia likely contamination Hypertension Sinus tachycardia Chronic lower extremity skin changes/wounds. Oral thrush Plan: Monitor vital signs Monitor CBC Monitor CMP Nothing by mouth going for EGD and colonoscopy Surgery team consult, continue with aspirin now recommended by neurologist with close monitoring of hemoglobin CSF results reviewed, patient is cleared by urologist by neurologist Anemia workup and monitor hemoglobin. Continue Protonix Continue with Keppra Continue with blood pressure medication Continue with Lasix. Potassium was 3.3, placement ordered Antibiotics discontinued by ID, currently on Diflucan for oral thrush Cardiology team, infectious disease and pulmonary team following Objective - Vital Signs Vital signs: Vital Signs Temp 98.4 F 03/13/22 08:20 Pulse 88 03/13/22 11:43 Resp 16 03/13/22 08:20 BP 117/81 03/13/22 08:20 Pulse Ox 98 03/13/22 08:20 FiO2 40 02/27/22 15:56 Intake & Output 03/12/22 03/13/22 03/13/22 18:59 06:59 18:59 Intake Total 380 20 10 Output Total 1825 1460 Balance -1445 20 -1450 Intake: IV 20 20 10 Invasive Line 8 20 20 10 Oral 360 Output: Urine 1825 1460 Other: Voiding Method Urinal Urinal # Voids 1 1 # Bowel Movements 1 1 - Labs CBC & Chem 7: 03/13/22 05:51 03/13/22 05:51 Labs: Abnormal Lab Results - Last 24 Hours (Table) 03/12/22 03/12/22 03/13/22 Range/Units 16:38 19:46 05:51 WBC 12.8 H (3.8-10.6) k/uL RBC 3.60 L (4.30-5.90) m/uL Hgb 10.2 L (13.0-17.5) gm/dL Hct 32.1 L (39.0-53.0) % Sodium (137-145) mmol/L Potassium (3.5-5.1) mmol/L Carbon Dioxide (22-30) mmol/L BUN (9-20) mg/dL Creatinine (0.66-1.25) mg/dL Glucose (74-99) mg/dL POC Glucose (mg/dL) 136 H 141 H (70-110) mg/dL Calcium (8.4-10.2) mg/dL ALT (4-49) U/L Total Protein (6.3-8.2) g/dL Albumin (3.5-5.0) g/dL 03/13/22 Range/Units 05:51 WBC (3.8-10.6) k/uL RBC (4.30-5.90) m/uL Hgb (13.0-17.5) gm/dL Hct (39.0-53.0) % Sodium 131 L (137-145) mmol/L Potassium 3.3 L (3.5-5.1) mmol/L Carbon Dioxide 34 H (22-30) mmol/L BUN 7 L (9-20) mg/dL Creatinine 0.40 L (0.66-1.25) mg/dL Glucose 70 L (74-99) mg/dL POC Glucose (mg/dL) (70-110) mg/dL Calcium 8.0 L (8.4-10.2) mg/dL ALT 56 H (4-49) U/L Total Protein 5.0 L (6.3-8.2) g/dL Albumin 2.5 L (3.5-5.0) g/dL
[2022-03-13] MEDS: POTASSIUM CHLORIDE ER 20 MEQ TAB.ER PO SCH ×2 (12:52→18:03)
[2022-03-13] MEDS ORDERED: LIDOCAINE 2% INJ 20 MG/ML (2 ML VIAL) ONE (14:50)
[2022-03-13] MEDS ORDERED: PROPOFOL 10 MG/ML 20 ML VIAL IV ONE (14:50)
[2022-03-13] MEDS ORDERED: PHENYLEPHRINE-0.9% NACL SYG 1,000 MCG/10 ML SYRINGE ONE (14:50)
[2022-03-13] MEDS ORDERED: SODIUM CHLORIDE 0.9% 500 ML 500 ML IV ONE ×2 (14:57)
--- NOTE | 2022-03-13 15:18 | P.OP ---
Date of Procedure: 03/13/22 Preoperative Diagnosis: GI bleed Postoperative Diagnosis: Antral gastritis Hiatal hernia Esophagitis Internal and external hemorrhoids Diverticulosis Rectal polyp Procedure(s) Performed: EGD Colonoscopy Anesthesia: MAC Surgeon: Zeus Welsh Pathology: other (Antrum, esophagus) Condition: stable Disposition: PACU Description of Procedure: The patient's placed on the endoscopy table in the lateral position. He received IV sedation. The gastro-/oropharynx passed in the esophagus and stomach. Scope was placed through the pylorus. The first and second portion of the duodenum appeared normal. Scope summer back the antrum this. Mildly inflamed. A biopsies performed. The scope was then retroflexed and the remainder the stomach appeared normal. There was a moderate size hiatal hernia. The GE junction was at 38 cm. The distal esophagus appeared inflamed there is evidence of erosive esophagitis. This was biopsied. The proximal esophagus appeared normal. Scope withdrawn for patient. Next digital rectal exam was performed. There were internal and external hemorrhoids noted. The flexible colonoscope was then placed patient anus and passed throughout the entire colon. The ileocecal valve was visualized. The cecum, ascending and transverse colon appeared normal. In the descending and sigmoid colon was mild diverticular changes. The scope was then brought back the rectum and a small sessile polyp was seen. This removed with the cold forcep. Scope was withdrawn to anus and internal and external hemorrhoids were seen. Presumed the patient was bleeding from erosive esophagitis
[2022-03-13 16:28] LABS: Glucose,Whole Blood 193 mg/dL (70-110)
[2022-03-13 19:38] VITALS: RESP 16
[2022-03-13 19:44] LABS: Glucose,Whole Blood 147 mg/dL (70-110)
--- NOTE | 2022-03-13 20:20 | P.PN ---
Subjective Progress Note Date: 03/13/22 Principal diagnosis: Aspiration pneumonia Patient is a 61-year-old male with a past medical history significant for chronic on both abuse seizure disorder noncompliant with his seizure medication patient was brought into the ER with acute onset of seizure , patient did have elevated white count and evidence of multifocal infiltrating mostly in the left perihilar region concerning for possible aspiration pneumonia. On today's evaluation is 03/13/2022, the patient remains to be febrile, the patient is breathing comfortably on room air , the patient denies any chest pain , the patient did have occasional dry cough no nausea no vomiting no abdominal pain or diarrhea Objective - Vital Signs Vital signs: Vital Signs Temp 98.4 F 03/13/22 08:20 Pulse 88 03/13/22 11:43 Resp 16 03/13/22 08:20 BP 117/81 03/13/22 08:20 Pulse Ox 98 03/13/22 08:20 FiO2 40 02/27/22 15:56 Intake & Output 03/12/22 03/13/22 03/13/22 18:59 06:59 18:59 Intake Total 380 20 10 Output Total 1825 1460 Balance -1445 20 -1450 Intake: IV 20 20 10 Invasive Line 8 20 20 10 Oral 360 Output: Urine 1825 1460 Other: Voiding Method Urinal Urinal # Voids 1 1 # Bowel Movements 1 1 - Exam GENERAL DESCRIPTION: Middle-aged male lying in bed in no distress RESPIRATORY SYSTEM: Unlabored breathing , decreased breath sounds at bases HEART: S1 S2 regular rate and rhythm , ABDOMEN: Soft , no tenderness EXTREMITIES: No edema feet - Labs CBC & Chem 7: 03/13/22 05:51 03/13/22 05:51 Labs: Abnormal Lab Results - Last 24 Hours (Table) 03/12/22 03/12/22 03/13/22 Range/Units 16:38 19:46 05:51 WBC 12.8 H (3.8-10.6) k/uL RBC 3.60 L (4.30-5.90) m/uL Hgb 10.2 L (13.0-17.5) gm/dL Hct 32.1 L (39.0-53.0) % Sodium (137-145) mmol/L Potassium (3.5-5.1) mmol/L Carbon Dioxide (22-30) mmol/L BUN (9-20) mg/dL Creatinine (0.66-1.25) mg/dL Glucose (74-99) mg/dL POC Glucose (mg/dL) 136 H 141 H (70-110) mg/dL Calcium (8.4-10.2) mg/dL ALT (4-49) U/L Total Protein (6.3-8.2) g/dL Albumin (3.5-5.0) g/dL 03/13/22 Range/Units 05:51 WBC (3.8-10.6) k/uL RBC (4.30-5.90) m/uL Hgb (13.0-17.5) gm/dL Hct (39.0-53.0) % Sodium 131 L (137-145) mmol/L Potassium 3.3 L (3.5-5.1) mmol/L Carbon Dioxide 34 H (22-30) mmol/L BUN 7 L (9-20) mg/dL Creatinine 0.40 L (0.66-1.25) mg/dL Glucose 70 L (74-99) mg/dL POC Glucose (mg/dL) (70-110) mg/dL Calcium 8.0 L (8.4-10.2) mg/dL ALT 56 H (4-49) U/L Total Protein 5.0 L (6.3-8.2) g/dL Albumin 2.5 L (3.5-5.0) g/dL Assessment and Plan (1) Pneumonia Current Visit: Yes Status: Acute Code(s): J18.9 - PNEUMONIA, UNSPECIFIED ORGANISM SNOMED Code(s): 957050781 Plan: 1patient presented to hospital with active seizures in this patient now with evidence of multifocal pneumonia mostly left perihilar region did have elevated vital concerning for pneumonia of aspiration etiology. For which the patient has received adequate antibiotic therapy for his underlying aspiration pneumonia 2positive blood culture finalized as staph epi likely skin contamination blood cultures repeated 02/25/2022 so far negative. 3patient with leukocytosis possible thrush versus reactive to his GI bleed, the patient white count is trending down, patient to continue with Diflucan and monitor clinical course closely Time with Patient: Less than 30
[2022-03-14 05:59] LABS: Glucose,Whole Blood 85 mg/dL (70-110)
[2022-03-14] MEDS: INSULIN ASPART (NovoLOG) 100 UNIT/ML VIAL SQ SCH ×2 (06:05→11:41)
[2022-03-14] MEDS: IPRATROPIUM-ALBUTEROL 3 ML NEB INHALATION SCH ×2 (08:28→11:23)
[2022-03-14] MEDS: PANTOPRAZOLE 40 MG/10 ML VIAL IVP SCH (09:46)
[2022-03-14] MEDS: METOPROLOL TARTRATE 50 MG TAB PO SCH (09:46)
[2022-03-14] MEDS: predniSONE 20 MG TAB PO SCH (09:47)
[2022-03-14] MEDS: THIAMINE 100 MG TAB PO SCH (09:47)
[2022-03-14] MEDS: FUROSEMIDE 40 MG TAB PO SCH (09:47)
[2022-03-14] MEDS: TAMSULOSIN 0.4 MG CAP.ER.24H PO SCH (09:47)
[2022-03-14] MEDS: levETIRAcetam 500 MG TAB PO SCH (09:47)
[2022-03-14] MEDS: FLUCONAZOLE 100 MG TAB PO SCH (09:47)
[2022-03-14 09:50] VITALS: TEMP 98.1
[2022-03-14 11:36] LABS: Glucose,Whole Blood 140 mg/dL (70-110)
[2022-03-14 11:46] VITALS: BP 116/73; PULSE 89
--- NOTE | 2022-03-14 12:13 | P.DS ---
Providers Date of admission: 02/21/22 20:07 Expected date of discharge: 03/14/22 Attending physician: Arnaldo Jones Consults: 02/21/22 18:39 Consult Physician Routine Consulting Provider: Antonina Sharma Consult Reason/Comments: prolonged postictal state following seizure Do you want consulting provider notified?: Yes 02/21/22 20:04 Consult Physician Routine Consulting Provider: Blaise Rayo Consult Reason/Comments: COPD exacerbation, pneumonia, hypercarbia Do you want consulting provider notified?: Yes 02/21/22 22:00 Consult Physician Routine Consulting Provider: Abbe Daily Consult Reason/Comments: pneumonia Do you want consulting provider notified?: Yes 02/24/22 13:24 Consult Physician Routine Consulting Provider: Agustin Vazquez Consult Reason/Comments: bleeding from penis need foy insertion Do you want consulting provider notified?: Yes 02/28/22 09:50 Consult Physician Routine Consulting Provider: Roly Neville Consult Reason/Comments: elevated HR Do you want consulting provider notified?: Yes 03/03/22 14:09 Consult Physician Urgent Consulting Provider: Nitin Patel Consult Reason/Comments: Anxiety, ETOH Do you want consulting provider notified?: Yes 03/09/22 16:54 Consult Physician Routine Consulting Provider: Zeus Welsh Consult Reason/Comments: possible GI bleed Do you want consulting provider notified?: Yes Primary care physician: Pina Bello Hospital Course: Discharge diagnoses; GI bleed Acute Seizure disorder with hx of recurrent seizures. Noncompliant with medications. Bilateral upper lobe pneumonia concerning for aspiration pneumonia Sepsis secondary above Severe lactic acidosis 7.9 on admission, resolved Acute hypoxemic respiratory failure was on BIPAP currently requiring 2L nasal cannula hyponatremia Alcohol abuse History of marijuana use Ongoing nicotine addiction Coagulase-negative staph aureus bacteremia likely contamination Hypertension Sinus tachycardia Chronic lower extremity skin changes/wounds. Oral thrush Annual gastritis Esophagitis Hospital course; 61-year-old male with a known history of seizure disorder, currently with a smoker and current alcohol abuse and currently not on any antiepileptic drugs was brought to ER by ambulance due to seizures.. Patient was also having chronic foot wounds and is on follow-up with wound care center. Patient is also noncompliant with follow-up and medications. Apparently patient had 3 episodes of seizures within an hour and has been acting differently. Patient's parents called EMS. Upon arrival to the ER patient was having leftward gaze deviation and was actively seizing. Patient was given 5 mg of IV Versed and seizure stopped. Patient was postictal. Patient is still drowsy and lethargic and unable to provide history. CT head and cervical spine showed no acute intracranial process. Nonspecific white matter changes likely secondary to chronic small vessel ischemic disease. No evidence of cervical spine fracture. Mild COPD changes with intralobular septal thickening and patchy groundglass opacities within the bilateral upper lobes concerning for infectious/infectious inflammatory process. Chest x-ray showed multifocal airspace opacities most pronounced on the left hilar region. Findings concerning for pneumonia. Foot x-ray showed no evidence of acute fracture. No osteomyelitis. Multifocal osteoarthrosis changes. EKG showed sinus tachycardia. Laboratory data showed WBC 18.6 hemoglobin 13.1 and lipase 471 2124 potassium 4.9 chloride 96 bicarb is 19 BUN 16 creatinine 0.66 and blood sugar is 2631 lactic acid 7.9 and albumin 2.9 serum alcohol level is less than 10 and influenza AB and RSV PCR and COVID-19 not detected. Patient is currently ER and requiring oxygen at 6 L via nasal cannula. 24 hour interval change 03/01/2022 Patient is seen and evaluated in follow-up on the selective care unit. Awake and alert in no acute distress; maintaining O2 saturations in the 90s on 2 L/m per nasal cannula. His main complaint is that of fatigue. No worsening shortness of breath, cough or congestion. -- Chest x-ray reveals moderate central vascular congestion with small to moderate right pleural effusion and tiny left pleural effusion. He has D5W at 75 mL per hour. - Follow-up blood culture reveals no growth. Urine culture revealed no growth. ProBNP 18,500. Patient received Lasix 40 mg IV 1; echocardiogram is recommended - Currently on bronchodilators. Antibiotics in the form of Zosyn. Heparin for DVT prophylaxis. Patient underwent radium swallow which did not reveal any aspiration -- patient was switched to oral Lasix 20 mg by mouth daily. He has a incentive spirometer. He also has a flutter valve. IV fluids are in the form of normal saline at rate of 50 mL an hour. He has a chronic smoker. He is using DuoNeb nebulized treatments and this will be switched to [id number] every 4 hours. - Pulmonary service recommending to continue with current management with further recommendations once echocardiogram results aren't available -- Patient has been evaluated by cardiology for tachycardia and metoprolol has been resumed at 100 mg twice a day - Patient is recommended abstinence from alcohol and tobacco use -- Possible discharge in next 24 hours once cleared by pulmonary service 03/02/2022 Patient is a pleasant 61 years old male with multiple medical problems was presented initially with breakthrough seizure, patient has insight. He denies any specific symptoms. Patient has been followed by neurologist and Then Keppra, MRI of the brain showing sequelae of seizures with neurological deficits and suspicious for CVA felt less likely by neurologist. Lumbar puncture still pending. Other than that patient reports improvement, he is eating better, no respiratory symptoms, his weakness is better. Foy catheter still in place which was placed on 02/25. Patient denies any depression. Resume the care of the patient 03/06/2022 Patient awake sitting up in bed, mildly tachypneic, mildly confused Patient denies chest pain or significant dyspnea. He still feels weak. He tolerates that well. No Foy catheter. He is saturating 95% on 2 L oxygen via nasal cannula I talked to him about going to rehab and he looks agreeable for short-term. Patient remains on IV Lasix, IV Solu-Medrol and Zosyn which can't be switched to oral antibiotics upon discharge Hypokalemia would be replaced per protocol We will follow-up with the neurologist if any further recommendation, discussed with the staff 03/07/2022 patient clinically doing well, he denies any specific symptoms, his mentation is back to baseline. Vitals and labs are reviewed and looks stable, low potassium and magnesium replaced Patient remains on IV Lasix, IV Solu-Medrol, Zosyn. Also is on Keppra Pending lumbar puncture recommended by neurologist Heparin placed on hold for lumbar puncture, discussed with the staff. Last dose received 03/06/2022 03/08/2022 Patient awake alert, no chest pain no dyspnea. Patient had lumbar puncture yesterday, he denies any back pain today he told me he was able to walk to the bathroom by himself using the walker with no difficulty. No new weakness or numbness. However the patient informed me that he had bloody bowel movement, I discussed with the staff and the patient on the same but it was not witnessed. Therefore we going to order occult blood in stool and anemia workup. Hemoglobin today was 10.1 compared to 10.[address] the [address] anemia workup. CSF culture pending, currently on Zosyn and she is switched to Augmentin upon discharge. Also patient men's on IV Lasix 40 mg twice daily, Solu-Medrol 60 mg, and Zosyn. We change her Pepcid to Protonix today. Patient also on aspirin 81 mg added during this admission. Discontinue subcutaneous heparin for possible GI bleed 03/09/2022 Patient was asymptomatic However patient occult blood in stool came back positive Hemoglobin 11.4 Consulted surgery team 03/10/2022 Patient denies any specific symptoms but he reports another blood in his bowel movement today, patient says that there are streaks of blood in his stool However patient vitals and hemoglobin is stable at 11.0. Patient currently on Protonix Also he is on baby aspirin recommended by neurologist Surgical team consult Patient remains on oral Lasix, prednisone, Zosyn which can be changed Augmentin for discharge 03/11. Patient seen and examined. Hemoglobin is stable. No acute issues overnight. Vital signs stable 03/12. Patient seen and examined. No episode of blood in the stool. States he feels better. No nausea or vomiting 03/14. Patient seen and examined. EGD done showed antral gastritis, hiatal hernia and esophagitis. Coloscopy showed internal and external hemorrhoids and diverticulosis. Being discharged on Protonix. Outpatient follow-up with PCP PHYSICAL EXAMINATION: GENERAL: The patient is alert and oriented x3, not in any acute distress. Well developed, well nourished. HEENT: Pupils are round and equally reacting to light. EOMI. No scleral icterus. No conjunctival pallor. Normocephalic, atraumatic. No pharyngeal erythema. No thyromegaly. CARDIOVASCULAR: S1 and S2 present. No murmurs, rubs, or gallops. PULMONARY: Chest is clear to auscultation, no wheezing or crackles. ABDOMEN: Soft, nontender, nondistended, normoactive bowel sounds. No palpable organomegaly. MUSCULOSKELETAL: No joint swelling or deformity. EXTREMITIES: No cyanosis, clubbing, or pedal edema. NEUROLOGICAL: Gross neurological examination did not reveal any focal deficits. SKIN: No rashes. Patient Condition at Discharge: Serious Plan - Discharge Summary New Discharge Prescriptions: New Tamsulosin [Flomax] 0.4 mg PO PC-BRKFST #21 cap levETIRAcetam [Keppra] 1,000 mg PO Q12HR #120 tab predniSONE 10 mg PO DIRECTED #40 tab Albuterol Inhaler [Ventolin Hfa Inhaler] 2 puff INHALATION QID 30 Days #8 gm Aspirin 81 mg PO DAILY #30 tab Fluconazole [Diflucan] 100 mg PO DAILY #5 tab Furosemide [Lasix] 40 mg PO DAILY #30 tab Omeprazole [PriLOSEC] 20 mg PO AC-BID #60 cap Thiamine [Vitamin B-1] 100 mg PO DAILY #30 tab Continue Hydrocortisone Cream [Hydrocortisone 1% Cream] 1 applic TOPICAL BID PRN PRN Reason: LEG ITCHING Metoprolol Tartrate [Lopressor] 100 mg PO BID tab Discontinued lisinopriL [Prinivil] 10 mg PO DAILY cloNIDine HCL [Catapres] 0.2 mg PO DAILY Triamcinolone 0.1% Cream [Kenalog 0.1% Cream] 1 applic TOPICAL DAILY cloNIDine HCL [Catapres] 0.1 mg PO HS Discharge Medication List Metoprolol Tartrate [Lopressor] 100 mg PO BID tab 06/14/21 [Rx] Hydrocortisone Cream [Hydrocortisone 1% Cream] 1 applic TOPICAL BID PRN 12/08/21 [History] Albuterol Inhaler [Ventolin Hfa Inhaler] 2 puff INHALATION QID 30 Days #8 gm 03/09/22 [Rx] Aspirin 81 mg PO DAILY #30 tab 03/09/22 [Rx] Fluconazole [Diflucan] 100 mg PO DAILY #5 tab 03/09/22 [Rx] Furosemide [Lasix] 40 mg PO DAILY #30 tab 03/09/22 [Rx] Omeprazole [PriLOSEC] 20 mg PO AC-BID #60 cap 03/09/22 [Rx] Tamsulosin [Flomax] 0.4 mg PO PC-BRKFST #21 cap 03/09/22 [Rx] Thiamine [Vitamin B-1] 100 mg PO DAILY #30 tab 03/09/22 [Rx] levETIRAcetam [Keppra] 1,000 mg PO Q12HR #120 tab 03/09/22 [Rx] predniSONE 10 mg PO DIRECTED #40 tab 03/09/22 [Rx] Follow up Appointment(s)/Referral(s): Raysa Starkey MD [STAFF PHYSICIAN] - 2 Weeks [facility], [NON-STAFF] - Pina Bello MD [Primary Care Provider] - 1-2 days Eladio Merritt MD [Medical Doctor] - 1 Week (Neurologist, we recommend to repeat MRI of the brain in short-term) Reema Cisneros MD [STAFF PHYSICIAN] - 2 Weeks (Electrical Controls Technician) Zeus Welsh MD [STAFF PHYSICIAN] - 1 Week Activity/Diet/Wound Care/Special Instructions: Heart healthy diet Activity is restricted till you see your doctor Discharge/Stand Alone Forms: AA Meetings [facility] Instructions, Who Do I Call?, Community Resources, Outpatient Counseling
--- NOTE | 2022-03-14 12:48 | P.PN ---
Subjective Progress Note Date: 03/14/22 Principal diagnosis: Aspiration pneumonia Patient is a 61-year-old male with a past medical history significant for chronic on both abuse seizure disorder noncompliant with his seizure medication patient was brought into the ER with acute onset of seizure , patient did have elevated white count and evidence of multifocal infiltrating mostly in the left perihilar region concerning for possible aspiration pneumonia. On today's evaluation is 03/14/2022, the patient continues to be febrile, the patient is breathing comfortably on room air , the patient denies any chest pain , the patient did have occasional dry cough , the patient denies nausea no vomiting no abdominal pain or diarrhea, the patient is feeling better wants to go home Objective - Vital Signs Vital signs: Vital Signs Temp 98.1 F 03/14/22 11:44 Pulse 89 03/14/22 11:44 Resp 16 03/14/22 11:44 BP 116/73 03/14/22 11:44 Pulse Ox 95 03/14/22 11:44 FiO2 40 02/27/22 15:56 Intake & Output 03/13/22 03/14/22 03/14/22 18:59 06:59 18:59 Intake Total 338 368 Output Total 1460 575 125 Balance -1122 -575 243 Intake: IV 220 10 Invasive Line 8 20 10 Oral 118 358 Output: Urine 1460 575 125 Other: Voiding Method Urinal Urinal Urinal # Voids 1 - Exam GENERAL DESCRIPTION: Middle-aged male lying in bed in no distress RESPIRATORY SYSTEM: Unlabored breathing , decreased breath sounds at bases HEART: S1 S2 regular rate and rhythm , ABDOMEN: Soft , no tenderness EXTREMITIES: No edema feet - Labs CBC & Chem 7: 03/13/22 05:51 03/13/22 05:51 Labs: Abnormal Lab Results - Last 24 Hours (Table) 03/13/22 03/13/22 03/14/22 Range/Units 16:27 19:40 11:34 POC Glucose (mg/dL) 193 H 147 H 140 H (70-110) mg/dL Assessment and Plan (1) Pneumonia Current Visit: Yes Status: Acute Code(s): J18.9 - PNEUMONIA, UNSPECIFIED ORGANISM SNOMED Code(s): 103126571 Plan: 1patient presented to hospital with active seizures in this patient now with evidence of multifocal pneumonia mostly left perihilar region did have elevated vital concerning for pneumonia of aspiration etiology. For which the patient has received adequate antibiotic therapy for his underlying aspiration pneumonia 2positive blood culture finalized as staph epi likely skin contamination blood cultures repeated 02/25/2022 so far negative. 3patient with leukocytosis possible thrush versus reactive to his GI bleed, the patient white count is trending down and was down to 12.8 yesterday , no CBC was done today, patient to continue with Diflucan 7 days on discharge Time with Patient: Less than 30
--- NOTE | 2022-03-14 13:30 | P.PN ---
Subjective Progress Note Date: 03/14/22 CHIEF COMPLAINT: GI bleed HISTORY OF PRESENT ILLNESS: Patient is status post EGD and colonoscopy revealing antral gastritis, hiatal hernia, esophagitis, internal and external hemorrhoids, diverticulosis and rectal polyp. Patient has had no further blood in his stools. Tolerating diet. Denies any abdominal pain. Hemoglobin 10.2 yesterday. Patient is being discharged home today. PHYSICAL EXAM: VITAL SIGNS: Reviewed. GENERAL: Well-developed in no acute distress. HEENT: No sclera icterus. Extraocular movements grossly intact. Moist buccal mucosa. Head is atraumatic, normocephalic. ABDOMEN: Soft. Nondistended. Nontender. NEUROLOGIC: Alert and oriented. Cranial nerves II through XII grossly intact. ASSESSMENT: 1. GI bleed with no further bleeding. Status post EGD and colonoscopy PLAN: -Patient can be discharged from surgical standpoint Physician [employer] note has been reviewed by physician. Signing provider agrees with the documented findings, assessment, and plan of care. Objective - Vital Signs Vital signs: Vital Signs Temp 98.1 F 03/14/22 11:44 Pulse 89 03/14/22 11:44 Resp 16 03/14/22 11:44 BP 116/73 03/14/22 11:44 Pulse Ox 95 03/14/22 11:44 FiO2 40 02/27/22 15:56 Intake & Output 03/13/22 03/14/22 03/14/22 18:59 06:59 18:59 Intake Total 338 486 Output Total 1460 575 425 Balance -1122 -575 61 Intake: IV 220 10 Invasive Line 8 20 10 Oral 118 476 Output: Urine 1460 575 425 Other: Voiding Method Urinal Urinal Urinal # Voids 1 - Labs CBC & Chem 7: 03/13/22 05:51 03/13/22 05:51 Labs: Abnormal Lab Results - Last 24 Hours (Table) 03/13/22 03/13/22 03/14/22 Range/Units 16:27 19:40 11:34 POC Glucose (mg/dL) 193 H 147 H 140 H (70-110) mg/dL
== END 2022-03-14 14:10 | disposition home health service (06) | DRG 871 ==
LOC: EC 15:32 → 3SCARD 20:07 → 2SICU 22:05 → 3SCARD 02-22 08:43
PROVIDERS: ADMIT Hospitalist; ATTEND Hospitalist
PROC: HZ2ZZZZ Detoxification Services for Substance Abuse Treatment (ICD-10-PCS; 2022-02-21)
PROC: 5A09357 Assistance with Respiratory Ventilation, Less than 24 Consecutive Hours, Continuous Positive Airway Pressure (ICD-10-PCS; 2022-02-21)
PROC: 0T9B70Z Drainage of Bladder with Drainage Device, Via Natural or Artificial Opening (ICD-10-PCS; 2022-02-25)
PROC: 009U3ZX Drainage of Spinal Canal, Percutaneous Approach, Diagnostic (ICD-10-PCS; principal; 2022-03-07 12:00)
PROC: 0DB38ZX Excision of Lower Esophagus, Via Natural or Artificial Opening Endoscopic, Diagnostic (ICD-10-PCS; 2022-03-13)
PROC: 0DB78ZX Excision of Stomach, Pylorus, Via Natural or Artificial Opening Endoscopic, Diagnostic (ICD-10-PCS; 2022-03-13)
PROC: 0DBP8ZZ Excision of Rectum, Via Natural or Artificial Opening Endoscopic (ICD-10-PCS; 2022-03-13)
DX: A41.9 Sepsis, unspecified organism (principal); I50.23 Acute on chronic systolic (congestive) heart failure; J96.01 Acute respiratory failure with hypoxia; J69.0 Pneumonitis due to inhalation of food and vomit; K20.81 Other esophagitis with bleeding; B37.89 Other sites of candidiasis; E87.20 Acidosis, unspecified; I42.9 Cardiomyopathy, unspecified; F05 Delirium due to known physiological condition; E87.1 Hypo-osmolality and hyponatremia; J44.1 Chronic obstructive pulmonary disease with (acute) exacerbation; J44.0 Chronic obstructive pulmonary disease with (acute) lower respiratory infection; I48.92 Unspecified atrial flutter; B37.0 Candidal stomatitis; F10.239 Alcohol dependence with withdrawal, unspecified; K92.1 Melena; J98.11 Atelectasis; I27.20 Pulmonary hypertension, unspecified; L97.529 Non-pressure chronic ulcer of other part of left foot with unspecified severity; L97.519 Non-pressure chronic ulcer of other part of right foot with unspecified severity; E87.8 Other disorders of electrolyte and fluid balance, not elsewhere classified; I11.0 Hypertensive heart disease with heart failure; G40.909 Epilepsy, unspecified, not intractable, without status epilepticus; I08.3 Combined rheumatic disorders of mitral, aortic and tricuspid valves; F32.A Depression, unspecified; F17.210 Nicotine dependence, cigarettes, uncomplicated; E86.0 Dehydration; Z20.822 Contact with and (suspected) exposure to COVID-19; I45.10 Unspecified right bundle-branch block; T42.76XA Underdosing of unspecified antiepileptic and sedative-hypnotic drugs, initial encounter; Y90.0 Blood alcohol level of less than 20 mg/100 ml; R31.0 Gross hematuria; K44.9 Diaphragmatic hernia without obstruction or gangrene; K64.4 Residual hemorrhoidal skin tags; K64.8 Other hemorrhoids; K62.1 Rectal polyp; K29.50 Unspecified chronic gastritis without bleeding; K57.30 Diverticulosis of large intestine without perforation or abscess without bleeding; M19.072 Primary osteoarthritis, left ankle and foot; M19.071 Primary osteoarthritis, right ankle and foot; R23.0 Cyanosis; R49.0 Dysphonia; I25.10 Atherosclerotic heart disease of native coronary artery without angina pectoris; F41.9 Anxiety disorder, unspecified; E86.1 Hypovolemia; E87.6 Hypokalemia; R13.10 Dysphagia, unspecified; R47.81 Slurred speech; R94.01 Abnormal electroencephalogram [EEG]; Z79.899 Other long term (current) drug therapy; Z91.14 Patient's other noncompliance with medication regimen; Z91.199 Patient's noncompliance with other medical treatment and regimen due to unspecified reason; Z87.11 Personal history of peptic ulcer disease; Z79.82 Long term (current) use of aspirin
CPT/HCPCS: 36410; 36415; 36600; 43239; 45380; 62270; 70450; 70551; 71045; 71046; 71260; 72125; 74230; 76937; 80048; 80053; 80306; 80320; 81001; 82140; 82272; 82728; 82805; 82945; 83540; 83550; 83605; 83735; 83880; 84132; 84145; 84157; 84484; 85025; 85027; 85610; 85730; 86140; 86255; 87040; 87070; 87086; 87205; 87252; 87496; 87498; 87529; 87636; 87798; 88305; 89050; 93005; 93306; 93880; 94640; 94660; 94664; 94667; 94668; 94760; 95819; 96361; 96365; 96366; 96367; 96375; 96376; 99291

== ENCOUNTER 2022-07-31 12:07 | Emergency (ER) | payer MEDICARE, OTHER ==
[2022-07-31 12:10] VITALS: RESP 18
[2022-07-31] MEDS ORDERED: levETIRAcetam IV 500 MG/5 ML VIAL IVP STA (12:27)
--- NOTE | 2022-07-31 12:39 | ED ---
General Adult HPI - General Chief complaint: Seizure Stated complaint: seizure Time Seen by Provider: 07/31/22 12:14 Source: patient, EMS, old records reviewed (Previous MRI) Mode of arrival: EMS Limitations: no limitations - History of Present Illness Initial comments: Patient is a pleasant 60-year-old male presenting to the emergency department with concerns for her. Patient has been off his Keppra for the past 4 days because he ran out. Patient states he did call the pharmacy and they were trying to get hold of his doctor but he has not had it filled as of yet. Patient does have a history of a handful of seizures previously, unclear why. Patient states she gets usually a couple seizures a year for the past few years. Patient denies any recent illness or patient states he feels fine at this time. - Related Data Home Medications Medication Instructions Recorded Confirmed Hydrocortisone Cream 1 applic TOPICAL BID PRN 12/08/21 02/21/22 [Hydrocortisone 1% Cream] Previous Rx's Medication Instructions Recorded Metoprolol Tartrate [Lopressor] 100 mg PO BID tab 06/14/21 Albuterol Inhaler [Ventolin Hfa 2 puff INHALATION QID 30 Days #8 gm 03/09/22 Inhaler] Aspirin 81 mg PO DAILY #30 tab 03/09/22 Fluconazole [Diflucan] 100 mg PO DAILY #5 tab 03/09/22 Furosemide [Lasix] 40 mg PO DAILY #30 tab 03/09/22 Omeprazole [PriLOSEC] 20 mg PO AC-BID #60 cap 03/09/22 Tamsulosin [Flomax] 0.4 mg PO PC-BRKFST #21 cap 03/09/22 Thiamine [Vitamin B-1] 100 mg PO DAILY #30 tab 03/09/22 levETIRAcetam [Keppra] 1,000 mg PO Q12HR #120 tab 03/09/22 predniSONE 10 mg PO DIRECTED #40 tab 03/09/22 levETIRAcetam [Keppra] 1,000 mg PO Q12HR #30 tab 07/31/22 Allergies Allergy/AdvReac Type Severity Reaction Status Date / Time No Known Allergies Allergy Verified 07/31/22 12:10 Review of Systems ROS Statement: Those systems with pertinent positive or pertinent negative responses have been documented in the HPI. ROS Other: All systems not noted in ROS Statement are negative. Constitutional: Denies: fever Eyes: Denies: eye pain ENT: Denies: ear pain Respiratory: Denies: cough Cardiovascular: Denies: chest pain Endocrine: Denies: fatigue Gastrointestinal: Denies: abdominal pain Genitourinary: Denies: dysuria Musculoskeletal: Denies: back pain Neurological: Denies: headache, weakness Past Medical History Past Medical History: Seizure Disorder History of Any Multi-Drug Resistant Organisms: None Reported Additional Past Surgical History / Comment(s): Right leg fracture repair Past Psychological History: No Psychological Hx Reported Smoking Status: Current every day smoker Past Alcohol Use History: None Reported, Daily Past Drug Use History: None Reported - Past Family History Mother Family Medical History: Coronary Artery Disease (CAD) Occupational Seizure History - Commerical Driving History Currently uses [employer] for employment (including self-employed).: No General Exam Limitations: no limitations General appearance: alert, in no apparent distress Head exam: Present: atraumatic Eye exam: Present: normal appearance, PERRL, EOMI ENT exam: Present: normal oropharynx Neck exam: Present: normal inspection. Absent: tenderness Respiratory exam: Present: normal lung sounds bilaterally Cardiovascular Exam: Present: regular rate, normal rhythm GI/Abdominal exam: Present: soft. Absent: tenderness Extremities exam: Present: normal inspection, full ROM Neurological exam: Present: alert, oriented X3, CN II-XII intact. Absent: motor sensory deficit Expanded Neurological exam: Present: protecting the airway Patient oriented to: Present: person, place, time Speech: Present: fluid speech Cranial nerves: EOM's Intact: Normal Sensory exam: Upper Extremity Light Touch: Normal, Lower Extremity Light Touch: Normal Motor strength exam: RUE: 5, LUE: 5, RLE: 5, LLE: 5 Eye Response: (4) open spontaneously Motor Response: (6) obeys commands Verbal Response: (5) oriented Psychiatric exam: Present: normal affect, normal mood Skin exam: Present: normal color Course Vital Signs 07/31/22 12:07 Pulse Rate 94 Respiratory 18 Rate Blood Pressure 148/89 O2 Sat by Pulse 94 L Oximetry Medical Decision Making - Medical Decision Making Was pt. sent in by a medical professional or institution (, PA, [facility], urgent care, hospital, or senior living...) When possible be specific @ -No Did you speak to anyone other than the patient for history (EMS, parent, family, police, friend...)? What history was obtained from this source @ -No Did you review nursing and triage notes (agree or disagree)? Why? @ -I reviewed and agree with nursing and triage notes Were old charts reviewed (outside hosp., previous admission, EMS record, old EKG, old radiological studies, urgent care reports/EKG's, senior living records)? Report findings @ -Reviewed previous MRI report Differential Diagnosis (chest pain, altered mental status, abdominal pain women, abdominal pain men, vaginal bleeding, weakness, fever, dyspnea, syncope, headache, dizziness, GI bleed, back pain, seizure, CVA, palpatations, mental health)? @ -Differential Seizure: Recurrent seizure disorder, febrile seizure, alcohol withdrawal, stimulants, meningitis, encephalitis, intercranial hemorrhage, intracranial tumor, stroke, eclampsia, thyrotoxicosis, hypocalcemia, hyponatremia, hypernatremia, hypomagnesemia, psychogenic, this is not meant to be an all-inclusive list. EKG interpreted by me (3pts min.). @ -As above X-rays interpreted by me (1pt min.). @ -None done CT interpreted by me (1pt min.). @ -None done U/S interpreted by me (1pt. min.). @ -None done What testing was considered but not performed or refused? (CT, X-rays, U/S, labs)? Why? @ -None What meds were considered but not given or refused? Why? @ -None Did you discuss the management of the patient with other professionals (professionals i.e. , PA, [facility], lab, RT, psych nurse, oncology social worker, radiology nurse, teacher, records officer, case checker)? Give summary @ -No Was smoking cessation discussed for >3mins.? @ -No Was critical care preformed (if so, how long)? @ -No Were there social determinants of health that impacted care today? How? (Homelessness, low income, unemployed, alcoholism, drug addiction, transportation, low edu. Level, literacy, decrease access to med. care, long term, rehab)? @ -No Was there de-escalation of care discussed even if they declined (Discuss DNR or withdrawal of care, Hospice)? DNR status @ -No What co-morbidities impacted this encounter? (DM, HTN, Smoking, COPD, CAD, Cancer, CVA, ARF, Chemo, Hep., AIDS, mental health diagnosis, sleep apnea, morbid obesity)? @ -None Was patient admitted / discharged? Hospital course, mention meds given and route, prescriptions, significant lab abnormalities, going to OR and other pertinent info. @ -Patient reevaluated and resting comfortably in bed. Patient is alert and oriented 3. Patient is acting appropriately. Patient is able to ambulate without any difficulty. He should had seizures are associated with missing her medication. Patient will be provided prescription and recommended close follow- up. Patient is also informed have primary care physician check his Keppra level. Undiagnosed new problem with uncertain prognosis? @ -No Drug Therapy requiring intensive monitoring for toxicity (Heparin, Nitro, Insulin, Cardizem)? @ -No Were any procedures done? @ -No Diagnosis/symptom? @ -Seizure Acute, or Chronic, or Acute on Chronic? @ -Acute Uncomplicated (without systemic symptoms) or Complicated (systemic symptoms)? @ -default Side effects of treatment? @ -No Exacerbation, Progression, or Severe Exacerbation? @ -No Poses a threat to life or bodily function? How? (Chest pain, [place], [place], pneumonia, PE, COPD, DKA, ARF, appy, cholecystitis, CVA, Diverticulitis, Homicidal, Suicidal, threat to staff... and all critical care pts) @ -No - Lab Data Result diagrams: 07/31/22 12:32 07/31/22 12:32 Lab Results 07/31/22 07/31/22 Range/Units 12:32 12:32 WBC 11.6 H (3.8-10.6) k/uL RBC 4.25 L (4.30-5.90) m/uL Hgb 11.0 L (13.0-17.5) gm/dL Hct 34.4 L (39.0-53.0) % MCV 80.8 (80.0-100.0) fL MCH 25.9 (25.0-35.0) pg MCHC 32.0 (31.0-37.0) g/dL RDW 16.8 H (11.5-15.5) % Plt Count 384 (150-450) k/uL MPV 7.3 Neutrophils % 87 % Lymphocytes % 6 % Monocytes % 6 % Eosinophils % 0 % Basophils % 0 % Neutrophils # 10.1 H (1.3-7.7) k/uL Lymphocytes # 0.7 L (1.0-4.8) k/uL Monocytes # 0.7 (0-1.0) k/uL Eosinophils # 0.0 (0-0.7) k/uL Basophils # 0.0 (0-0.2) k/uL Anisocytosis Slight Sodium 130 L (137-145) mmol/L Potassium 4.4 (3.5-5.1) mmol/L Chloride 91 L (98-107) mmol/L Carbon Dioxide 25 (22-30) mmol/L Anion Gap 14 mmol/L BUN 13 (9-20) mg/dL Creatinine 0.64 L (0.66-1.25) mg/dL Est GFR (CKD-EPI)AfAm >90 (>60 ml/min/1.73 sqM) Est GFR (CKD-EPI)NonAf >90 (>60 ml/min/1.73 sqM) Glucose 194 H (74-99) mg/dL Calcium 9.0 (8.4-10.2) mg/dL Magnesium 2.3 (1.6-2.3) mg/dL Total Bilirubin 0.6 (0.2-1.3) mg/dL AST 34 (17-59) U/L ALT 23 (4-49) U/L Alkaline Phosphatase 112 (38-126) U/L Total Protein 7.3 (6.3-8.2) g/dL Albumin 4.1 (3.5-5.0) g/dL Serum Alcohol <10 mg/dL Disposition Clinical Impression: Generalized seizure Disposition: HOME SELF-CARE Condition: Stable Instructions (If sedation given, give patient instructions): Seizure/Epilepsy Discharge Instructions & Follow-Up, Recurrent Seizures in Adults (ED) Additional Instructions: Prescriptions have been sent to pharmacy. Please do follow-up with your doctor within the next 2 days for recheck. Have your doctor your Keppra level that was sent out from lab. Return for seizures, illness, fever, worsening symptoms or any other concerns. No driving until 6 months seizure-free. Prescriptions: levETIRAcetam [Keppra] 1,000 mg PO Q12HR #30 tab Is patient prescribed a controlled substance at d/c from ED?: No Referrals: Sunilkumar,Mini, MD [Primary Care Provider] - 1-2 days Time of Disposition: 13:22
[2022-07-31 12:45] LABS: Anisocytosis Slight; Basophils % (A) 0 %; Eosinophils % (A) 0 %; HCT 34.4 % (39.0-53.0); Lymphocytes # (A) 0.7 k/uL (1.0-4.8); Lymphocytes % (A) 6 %; MCH 25.9 pg (25.0-35.0); MCV 80.8 fL (80.0-100.0); Mean Platelet Volume 7.3; Monocytes # (A) 0.7 k/uL (0-1.0); Monocytes % (A) 6 %; Neutrophils # (A) 10.1 k/uL (1.3-7.7); Neutrophils % (A) 87 %; Platelet Count 384 k/uL (150-450); RBC 4.25 m/uL (4.30-5.90); RDW 16.8 % (11.5-15.5); WBC 11.6 k/uL (3.8-10.6)
[2022-07-31 12:50] LABS: ALT 23 U/L (4-49); AST 34 U/L (17-59); African American GFR (CKD) >90 (>60 ml/min/1.73 sqM); Albumin 4.1 g/dL (3.5-5.0); Alcohol <10 mg/dL; Alkaline Phosphatase 112 U/L (38-126); Anion Gap 14 mmol/L; Blood Urea Nitrogen 13 mg/dL (9-20); Carbon Dioxide 25 mmol/L (22-30); Chloride 91 mmol/L (98-107); Glucose 194 mg/dL (74-99); Magnesium 2.3 mg/dL (1.6-2.3); Non-African American GFR(CKD) >90 (>60 ml/min/1.73 sqM); Potassium 4.4 mmol/L (3.5-5.1); Sodium 130 mmol/L (137-145); Total Bilirubin 0.6 mg/dL (0.2-1.3); Total Protein 7.3 g/dL (6.3-8.2)
[2022-07-31 13:56] VITALS: BP 131/91; PULSE 85
== END 2022-07-31 14:00 | disposition home or self-care (01) ==
LOC: EC 12:07
DX: G40.909 Epilepsy, unspecified, not intractable, without status epilepticus (principal); F17.200 Nicotine dependence, unspecified, uncomplicated
CPT/HCPCS: 36415; 93005; 80053; 80177; 83735; 85025; 99285; 96374; G0480; J1953; 80320

== ENCOUNTER 2023-03-09 10:21 | Inpatient (IN) | payer MEDICARE, OTHER ==
[2023-03-09 12:18] LABS: Anisocytosis Slight; Basophils % (A) 0 %; Eosinophils # (A) 0.1 k/uL (0-0.7); Eosinophils % (A) 0 %; HGB 7.9 gm/dL (13.0-17.5); Hypochromasia Marked; Lymphocytes # (A) 3.4 k/uL (1.0-4.8); Lymphocytes % (A) 16 %; MCH 20.1 pg (25.0-35.0); MCHC 29.4 g/dL (31.0-37.0); MCV 68.6 fL (80.0-100.0); Microcytosis Marked; Monocytes # (A) 2.1 k/uL (0-1.0); Monocytes % (A) 9 %; Neutrophils # (A) 15.4 k/uL (1.3-7.7); Neutrophils % (A) 71 %; Poikilocytosis Slight; RBC 3.93 m/uL (4.30-5.90); RDW 19.8 % (11.5-15.5); WBC 21.7 k/uL (3.8-10.6)
[2023-03-09 12:37] LABS: ALT 14 U/L (4-49); AST 21 U/L (17-59); African American GFR (CKD) >90 (>60 ml/min/1.73 sqM); Alkaline Phosphatase 121 U/L (38-126); Anion Gap 11 mmol/L; Blood Urea Nitrogen 11 mg/dL (9-20); Calcium 8.5 mg/dL (8.4-10.2); Carbon Dioxide 23 mmol/L (22-30); Chloride 91 mmol/L (98-107); Glucose 90 mg/dL (74-99); Non-African American GFR(CKD) >90 (>60 ml/min/1.73 sqM); Sodium 125 mmol/L (137-145); Total Bilirubin 0.5 mg/dL (0.2-1.3)
[2023-03-09 12:38] LABS: Partial Thromboplastin Time 24.1 sec (22.0-30.0)
[2023-03-09 12:46] LABS: NT-Pro-B-Type Natriuretic Pept 430 pg/mL
[2023-03-09 12:47] LABS: Platelet Count 1369 k/uL (150-450)
--- NOTE | 2023-03-09 12:57 | ED ---
Chest Pain HPI - General Chief Complaint: Chest Pain Stated Complaint: chest pain sob Time Seen by Provider: 03/09/23 10:30 Source: EMS Mode of arrival: EMS Limitations: no limitations - History of Present Illness Initial Comments: 62-year-old male with past medical history of alcohol abuse who presents emergency department reporting chest pain. Denies previous history of cardiac disease. States the pain is located on his right side without radiation. Pain is worse with inspiration. Does admit to a productive cough. He has had some sick contacts. Patient actively smokes. He does not wear any home oxygen. Does have a nebulizer at home and states that he did take a treatment today. No fevers. No ripping or tearing sensation to his back. No history of DVT or PE. Patient does admit to daily drinking however has not drank since last night. No other alleviating, precipitating or modifying factors - Related Data Home Medications Medication Instructions Recorded Confirmed Albuterol Inhaler [Ventolin Hfa 2 puff INHALATION RT-QID 03/09/23 03/09/23 Inhaler] Aspirin EC [Ecotrin Low Dose] 81 mg PO DAILY 03/09/23 03/09/23 Losartan [Cozaar] 25 mg PO DAILY 03/09/23 03/09/23 Metoprolol Tartrate [Lopressor] 100 mg PO BID 03/09/23 03/09/23 Omeprazole [PriLOSEC] 20 mg PO DAILY 03/09/23 03/09/23 Previous Rx's Medication Instructions Recorded Furosemide [Lasix] 40 mg PO DAILY #30 tab 03/09/22 Tamsulosin [Flomax] 0.4 mg PO PC-BRKFST #21 cap 03/09/22 Thiamine [Vitamin B-1] 100 mg PO DAILY #30 tab 03/09/22 levETIRAcetam [Keppra] 1,000 mg PO Q12HR #30 tab 07/31/22 Amoxic-Pot Clav 875-125Mg 1 tab PO BID 7 Days #14 tab 03/12/23 [Augmentin 875-125] Budesonide-Formot 160-4.5 Mcg 2 puff INHALATION BID #1 each 03/12/23 [Symbicort 160-4.5 Mcg Inhaler] Ipratropium-Albuterol Nebulize 3 ml INHALATION RT-QID #120 each 03/12/23 [Duoneb 0.5 mg-3 mg/3 ml Soln] Nicotine 14Mg/24Hr Patch [Habitrol] 1 patch TRANSDERM DAILY #30 patch 03/12/23 Allergies Allergy/AdvReac Type Severity Reaction Status Date / Time No Known Allergies Allergy Verified 03/09/23 12:36 Review of Systems ROS Statement: Those systems with pertinent positive or pertinent negative responses have been documented in the HPI. ROS Other: All systems not noted in ROS Statement are negative. Past Medical History Past Medical History: Seizure Disorder History of Any Multi-Drug Resistant Organisms: None Reported Additional Past Surgical History / Comment(s): Right leg fracture repair Past Psychological History: No Psychological Hx Reported Smoking Status: Current every day smoker Past Alcohol Use History: Daily Past Drug Use History: Marijuana - Past Family History Mother Family Medical History: Coronary Artery Disease (CAD) General Exam Limitations: no limitations General appearance: alert, in no apparent distress Head exam: Present: atraumatic, normocephalic, normal inspection Eye exam: Present: normal appearance, PERRL, EOMI. Absent: scleral icterus, conjunctival injection, periorbital swelling ENT exam: Present: normal exam, mucous membranes moist Neck exam: Present: normal inspection. Absent: tenderness, meningismus, lymphadenopathy Respiratory exam: Present: rales, decreased breath sounds. Absent: respiratory distress, wheezes, rhonchi, stridor Cardiovascular Exam: Present: normal rhythm, tachycardia, normal heart sounds. Absent: systolic murmur, diastolic murmur, rubs, gallop, clicks GI/Abdominal exam: Present: soft, normal bowel sounds. Absent: distended, tenderness, guarding, rebound, rigid Extremities exam: Present: normal inspection, full ROM, normal capillary refill. Absent: tenderness, pedal edema, joint swelling, calf tenderness Back exam: Present: normal inspection Neurological exam: Present: alert, oriented X3, CN II-XII intact Psychiatric exam: Present: normal affect, normal mood Skin exam: Present: warm, dry, intact, normal color. Absent: rash Course Vital Signs 03/09/23 03/09/23 03/09/23 10:25 12:10 15:33 Temperature 98.8 F Pulse Rate 130 H 125 H 118 H Respiratory 24 22 Rate Blood Pressure 124/93 128/80 O2 Sat by Pulse 95 94 L Oximetry 03/09/23 03/09/23 15:42 17:51 Temperature Pulse Rate 118 H 106 H Respiratory 20 Rate Blood Pressure 101/58 O2 Sat by Pulse 94 L Oximetry Chest Pain MDM - MDM Was pt. sent in by a medical professional or institution ([facility], [facility]AT[facility]ER, urgent care, hospital, or detention...) When possible be specific @ -No Did you speak to anyone other than the patient for history (EMS, parent, family, police, friend...)? What history was obtained from this source @ -EMS Did you review nursing and triage notes (agree or disagree)? Why? @ -I reviewed and agree with nursing and triage notes Were old charts reviewed (outside hosp., previous admission, EMS record, old EKG, old radiological studies, urgent care reports/EKG's, detention records)? Report findings @ -No old charts were reviewed Differential Diagnosis (chest pain, altered mental status, abdominal pain women, abdominal pain men, vaginal bleeding, weakness, fever, dyspnea, syncope, headache, dizziness, GI bleed, back pain, seizure, CVA, palpatations, mental health, musculoskeletal)? @ -pneumonia, covid, influenza, copd exacerbation EKG interpreted by me (3pts min.). @ -Yes and demonstrates sinus tachycardia with a rate of 136. NV interval 117. QRS 122. QTC of 392. No acute ST segment elevations or depressions X-rays interpreted by me (1pt min.). @ -None done CT interpreted by me (1pt min.). @ -yes, no pe. pneumonia U/S interpreted by me (1pt. min.). @ -None done What testing was considered but not performed or refused? (CT, X-rays, U/S, labs)? Why? @ -None What meds were considered but not given or refused? Why? @ -None Did you discuss the management of the patient with other professionals (professionals i.e. TERRA [facility], CREATIVE PERFUMER, lab, RT, psych nurse, social services specialist, shirt ironer supervisor, teacher, senior administrative services officer, caser in)? Give summary @ -Dr. Jones Was smoking cessation discussed for >3mins.? @ -No Was critical care preformed (if so, how long)? @ -No Were there social determinants of health that impacted care today? How? (Homelessness, low income, unemployed, alcoholism, drug addiction, transportation, low edu. Level, literacy, decrease access to med. care, assisted, rehab)? @ -No Was there de-escalation of care discussed even if they declined (Discuss DNR or withdrawal of care, Hospice)? DNR status @ -No What co-morbidities impacted this encounter? (DM, HTN, Smoking, COPD, CAD, Cancer, CVA, ARF, Chemo, Hep., AIDS, mental health diagnosis, sleep apnea, morbid obesity)? @ -copd, alcohol use Was patient admitted / discharged? Hospital course, mention meds given and route, prescriptions, significant lab abnormalities, going to OR and other pertinent info. @ -Admitted. Upon arrival patient was placed into room 28. A thorough history and physical exam was performed. He was given a breathing treatments, aspirin and nitro by EMS. Laboratory studies are conducted. Elevated d-dimer and therefore patient requires CT. CT does not demonstrate PE. Does demonstrate pneumonia. Blood cultures obtained. Patient initiated on antibiotics, breathing treatments and steroids. Recommended admission for his chest pain which the patient was agreeable. He is placed on alcohol withdrawal protocol. Patient admitted to Dr. Jones in stable condition Undiagnosed new problem with uncertain prognosis? @ -No Drug Therapy requiring intensive monitoring for toxicity (Heparin, Nitro, Insulin, Cardizem)? @ -No Were any procedures done? @ -No Diagnosis/symptom? @ -acute respiratory insuff, CAP, AECOPD, tachycardia, alcohol abuse Acute, or Chronic, or Acute on Chronic? @ -acute Uncomplicated (without systemic symptoms) or Complicated (systemic symptoms)? @ -complicated Side effects of treatment? @ -allergic reaction Exacerbation, Progression, or Severe Exacerbation? @ -yes, of copd Poses a threat to life or bodily function? How? (Chest pain, USA, CT, pneumonia, PE, COPD, DKA, ARF, appy, cholecystitis, CVA, Diverticulitis, Homicidal, Suicidal, threat to staff... and all critical care pts) @ - No Disposition Clinical Impression: Alcohol withdrawal, Sepsis, Pneumonia, Hypoxia, Tachycardia Disposition: ADMITTED IP TO THIS HOSP Condition: Serious Is patient prescribed a controlled substance at d/c from ED?: No Time of Disposition: 14:02 Decision to Admit Reason: Admit from EC Decision Date: 03/09/23 Decision Time: 14:02
--- NOTE | 2023-03-09 13:32 | CT ---
EXAMINATION TYPE: CT chest angio for PE DATE OF EXAM: 03/09/2023 COMPARISON: 03/02/2022 HISTORY: elevated d-dimer and SOB CT DLP: 255.1 mGycm Automated exposure control for dose reduction was used. CONTRAST: CT Chest for pulmonary embolism performed with with IV Contrast, patient injected with 65ml mL of Iso diana 370. FINDINGS: There are moderate emphysematous changes. There are multiple loculated fluid collections in the right mid lower lung and there is moderate mice raiser bolivar interstitial changes in the right lung base. There are small multifocal areas of abnormal airspac e/consolidative density in the right lung base consistent with pneumonic infiltrates or atelectasis. Left lung is clear. The great vessels chest are normal is no mediastinal, hilar or axillary adenopathy. There are no filling defects within the pulmonary artery or branches to suggest pulmonary embolism. The osseous structures are intact. Limited scanning through the upper abdomen reveals no gross abnormality. IMPRESSION: 1. No evidence of pulmonary embolism. 2. Small multiple loculated right pleural fluid collections as described above. 3. Moderate chronic changes in the right lung base. 4. Emphysematous changes. 5. Right base lung infiltrates consistent with pneumonia or atelectasis.
[2023-03-09] MEDS ORDERED: PNEUMONIA PROTOCOL UTILIZED 1 EACH MISC PO PRN (13:57)
[2023-03-09] MEDS ORDERED: AZITHROMYCIN 500 MG in SODIUM CHLORIDE 0.9% 250 ML IVPB STA (13:57)
[2023-03-09] MEDS ORDERED: IPRATROPIUM-ALBUTEROL 3 ML NEB INHALATION PRN (13:57)
[2023-03-09] MEDS ORDERED: LORazepam 2 MG/ML INJ IV PRN ×3 (14:16)
[2023-03-09] MEDS ORDERED: THIAMINE 100 MG/ML 2 ML VIAL IM STA (14:16)
[2023-03-09] MEDS ORDERED: methylPREDNISolone SOD SUCCI 125 MG/2 ML VIAL IV STA (14:17)
[2023-03-09] MEDS: SODIUM CHLORIDE 0.9% 1,000 ML IV SCH ×2 (14:46→20:11)
[2023-03-09] MEDS ORDERED: LORazepam 2 MG/ML INJ IV STA (15:29)
[2023-03-09] MEDS: IPRATROPIUM-ALBUTEROL 3 ML NEB INHALATION SCH ×2 (15:33→21:04)
[2023-03-09] MEDS ORDERED: HYDROmorphone 0.5 MG/0.5 ML SYRINGE IVP PRN (16:04)
[2023-03-09] MEDS: NICOTINE 14MG/24HR PATCH TRANSDERM SCH (16:39)
[2023-03-09] MEDS: PIPERACILLIN-TAZOBACTAM 3.375 GM in SODIUM CHLORIDE 0.9% 100 ML IVPB SCH (16:48)
[2023-03-09] MEDS: levETIRAcetam 500 MG TAB PO SCH (20:10)
[2023-03-09] MEDS: HEPARIN SODIUM,PORCINE 5,000 UNIT/ML 1 ML VIAL SQ SCH (20:10)
[2023-03-09] MEDS: METOPROLOL TARTRATE 50 MG TAB PO SCH (20:10)
--- NOTE | 2023-03-09 23:11 | HP ---
HISTORY AND PHYSICAL CHIEF COMPLAINT: Right-sided chest pain and right-sided pneumonia. HISTORY OF PRESENT ILLNESS: This is a 62-year-old gentleman with a past medical history of multiple medical problems including EtOH and seizure disorder, The patient is complaining of right-sided chest pain. The pain was worse with inspiration. The patient was evaluated in the ER and platelets were elevated, D-dimer was 1.67. Patient underwent CT angio of the chest, which I reviewed personally, showed significant evidence of right-sided pneumonia and multiple loculated right pleural effusions also noted with chronic changes and there was no evidence of pulmonary embolism. The patient admitted for further evaluation and treatment. There is no history of any fever, rigors, or chills. The patient is mildly confused. PAST MEDICAL HISTORY: Reviewed include EtOH, seizure disorder, rest of the history and previous chart is also reviewed. HOME MEDICATIONS: Reviewed include Flomax, dose and rest of the medications are reviewed. ALLERGIES: None. FAMILY HISTORY: History of coronary disease in the family. SOCIAL HISTORY: History of daily alcohol use and smoking THC. REVIEW OF SYSTEMS: A 14-point review is negative except as mentioned earlier. PHYSICAL EXAMINATION: VITAL SIGNS: Pulse is 125 and irregular, blood pressure 128/80, respirations 22. HEENT: Conjunctivae normal. NECK: No jugular venous distention. CARDIOVASCULAR: S1, S2. RESPIRATIONS: Bilateral scattered rhonchi and crackles. ABDOMEN: Soft, nontender. LEGS: No edema, no swelling. NERVOUS SYSTEM: Nonfocal. SKIN: No ulcer, rash, bleeding. JOINTS: No active deforming arthropathy. LABS: EKG showed possible sinus tachycardia. Other labs are noted. ASSESSMENT: 1. Right lower lobe pneumonia, possibly aspiration with sepsis present on admission. 2. Tachycardia, sinus. 3. History of EtOH. 4. History of seizure disorder. 5. History of nicotine dependence. 6. Small multiple loculated right pleural effusions in the CAT scan. 7. Elevated WBC, anemia, and thrombocytosis. RECOMMENDATIONS: This 62-year-old gentleman presented with multiple complex medical issues, we will monitor the patient closely. I would recommend broad-spectrum IV antibiotics. Pulmonary and Infectious Disease evaluations, EtOH cessation, CIWA protocol, resume the home medications. The patient also had multiple hematology abnormalities, the exact etiology is unknown, could be related to infection versus alcohol, but we will continue to monitor. Further recommendations to follow. The patient also had hyponatremia, could be secondary to alcohol. Prognosis guarded because of multiple complex medical conditions, further recommendations to follow. See orders for details. I would recommend Vanesa at this time. MMODL / IJN: [id number] / MTDD
[2023-03-10] MEDS: PIPERACILLIN-TAZOBACTAM 3.375 GM in SODIUM CHLORIDE 0.9% 100 ML IVPB SCH ×4 (00:10→23:45)
[2023-03-10] MEDS: SODIUM CHLORIDE 0.9% 1,000 ML IV SCH ×3 (06:09→21:49)
[2023-03-10] MEDS: PANTOPRAZOLE 40 MG TABLET PO SCH (06:09)
[2023-03-10] MEDS: NICOTINE 14MG/24HR PATCH TRANSDERM SCH ×2 (08:32→08:40)
[2023-03-10] MEDS: ASPIRIN 81 MG PO SCH (08:32)
[2023-03-10] MEDS: LOSARTAN 25 MG TAB PO SCH (08:33)
[2023-03-10] MEDS: FUROSEMIDE 40 MG TAB PO SCH (08:33)
[2023-03-10] MEDS: TAMSULOSIN 0.4 MG CAP.ER.24H PO SCH (08:33)
[2023-03-10] MEDS: AZITHROMYCIN 500 MG TAB PO SCH (08:33)
[2023-03-10] MEDS: METOPROLOL TARTRATE 50 MG TAB PO SCH ×2 (08:33→21:48)
[2023-03-10] MEDS: levETIRAcetam 500 MG TAB PO SCH ×2 (08:33→21:48)
[2023-03-10] MEDS: THIAMINE 100 MG TAB PO SCH (08:33)
[2023-03-10] MEDS: HEPARIN SODIUM,PORCINE 5,000 UNIT/ML 1 ML VIAL SQ SCH ×2 (08:34→21:48)
[2023-03-10] MEDS ORDERED: THIAMINE 100 MG TAB PO SCH (09:00)
[2023-03-10] MEDS: IPRATROPIUM-ALBUTEROL 3 ML NEB INHALATION SCH ×4 (09:10→22:08)
--- NOTE | 2023-03-10 09:25 | XR ---
EXAMINATION TYPE: XR chest 1V portable DATE OF EXAM: 03/10/2023 COMPARISON: 03/11/2022 INDICATION: Pneumonia TECHNIQUE: Single frontal view of the chest is obtained. FINDINGS: The heart size is normal. The pulmonary vasculature is normal. Right lower lobe infiltrate is present. Some linear opacity is present. Portion of this may be chroni c. There is blunting of the right costophrenic angle. IMPRESSION: 1. Right lower lobe infiltrate. Correlate for pneumonia. Follow-up is recommended. 2. Small right pleural effusion.
[2023-03-10 12:29] LABS: Anisocytosis Slight; Basophils % (A) 0 %; Eosinophils % (A) 0 %; HCT 25.8 % (39.0-53.0); Hypochromasia Marked; Lymphocytes # (A) 1.6 k/uL (1.0-4.8); Lymphocytes % (A) 6 %; MCH 19.4 pg (25.0-35.0); MCHC 27.1 g/dL (31.0-37.0); MCV 71.4 fL (80.0-100.0); Mean Platelet Volume 7.2; Microcytosis Marked; Monocytes # (A) 1.6 k/uL (0-1.0); Monocytes % (A) 7 %; Neutrophils # (A) 20.8 k/uL (1.3-7.7); Neutrophils % (A) 84 %; Poikilocytosis Slight; RBC 3.62 m/uL (4.30-5.90); RDW 19.3 % (11.5-15.5); WBC 24.7 k/uL (3.8-10.6)
[2023-03-10 12:30] LABS: Platelet Count 1081 k/uL (150-450)
[2023-03-10 12:55] LABS: ALT 16 U/L (4-49); AST 18 U/L (17-59); African American GFR (CKD) >90 (>60 ml/min/1.73 sqM); Albumin 2.7 g/dL (3.5-5.0); Alkaline Phosphatase 94 U/L (38-126); Anion Gap 10 mmol/L; Blood Urea Nitrogen 11 mg/dL (9-20); Calcium 8.4 mg/dL (8.4-10.2); Carbon Dioxide 24 mmol/L (22-30); Chloride 95 mmol/L (98-107); Glucose 102 mg/dL (74-99); Non-African American GFR(CKD) >90 (>60 ml/min/1.73 sqM); Sodium 129 mmol/L (137-145); Total Bilirubin 0.3 mg/dL (0.2-1.3); Total Protein 6.3 g/dL (6.3-8.2)
--- NOTE | 2023-03-10 13:35 | P.CNPUL ---
History of Present Illness Consult date: 03/10/23 Requesting physician: Arnaldo Jones Reason for consult: dyspnea, chest pain, COPD Chief complaint: Right-sided chest pain with shortness of breath and cough History of present illness: This is a 62-year-old male patient with a known history of seizure disorder, chronic obstructive pulmonary disease, chronic and ongoing tobacco dependence, marijuana use, daily alcohol use, hypertension, gastroesophageal reflux disease who presented here to the emergency room yesterday with right-sided chest di scomfort, shortness of breath, pain on inhalation, cough and congestion. Chest x-ray does reveal a right lower lobe infiltrate and a small right pleural effusion. CT angiogram ruled out pulmonary embolism. Small multiple loculated right pleural fluid collections. Moderate chronic changes in the right lung base. Emphysematous changes. Right base lung infiltrates consistent with pneumonia versus atelectasis. White count 24.7. Hemoglobin 7.0. Platelets 1081. Sodium 129. Potassium 4.0. Bicarb 24. BUN 11. Creatinine 0.60. Glucose 102. Viral screen negative. He is seen today in consultation on the selective care unit. He is currently resting comfortably in bed. Awake and alert in no acute distress. Maintaining O2 saturations in the 90s on room air. He is afebrile. Hemodynamically stable. Review of Systems REVIEW OF SYSTEMS: CONSTITUTIONAL: Denies any recent significant weight loss or weight gain. EYES: Denies change in vision. EARS, NOSE, MOUTH, THROAT: Denies headaches, denies sore throat. CARDIOVASCULAR: Positive for right-sided chest pain, no palpitations or syncopal episodes. RESPIRATORY: Positive for shortness of breath, cough, congestion no hemoptysis. GASTROINTESTINAL: Denies change in appetite, denies abdominal pain GENITOURINARY: Denies hematuria, denies infections. MUSKULOSKELETAL: Denies pain, denies swelling. INTEGUMENTARY: Denies rash, denies eczema. NEUROLOGICAL: Denies recent memory loss, no recent seizure activity. PSYCHIATRIC: Denies anxiety, denies depression. HEMATOLOGIC/LYMPHATIC: Denies anemia, denies enlarged lymph nodes. Past Medical History Past Medical History: Seizure Disorder History of Any Multi-Drug Resistant Organisms: None Reported Additional Past Surgical History / Comment(s): Right leg fracture repair Past Anesthesia/Blood Transfusion Reactions: No Reported Reaction Past Psychological History: No Psychological Hx Reported Smoking Status: Current every day smoker Past Alcohol Use History: Daily Past Drug Use History: Marijuana - Past Family History Mother Family Medical History: Coronary Artery Disease (CAD) Medications and Allergies Home Medications Medication Instructions Recorded Confirmed Type Furosemide [Lasix] 40 mg PO DAILY #30 tab 03/09/22 03/09/23 Rx Tamsulosin [Flomax] 0.4 mg PO PC-BRKFST #21 cap 03/09/22 03/09/23 Rx Thiamine [Vitamin B-1] 100 mg PO DAILY #30 tab 03/09/22 03/09/23 Rx levETIRAcetam [Keppra] 1,000 mg PO Q12HR #30 tab 07/31/22 03/09/23 Rx Albuterol Inhaler [Ventolin Hfa 2 puff INHALATION RT-QID 03/09/23 03/09/23 History Inhaler] Aspirin EC [Ecotrin Low Dose] 81 mg PO DAILY 03/09/23 03/09/23 History Losartan [Cozaar] 25 mg PO DAILY 03/09/23 03/09/23 History Metoprolol Tartrate [Lopressor] 100 mg PO BID 03/09/23 03/09/23 History Omeprazole [PriLOSEC] 20 mg PO DAILY 03/09/23 03/09/23 History Allergies Allergy/AdvReac Type Severity Reaction Status Date / Time No Known Allergies Allergy Verified 03/09/23 12:36 Physical Exam Vitals: Vital Signs Temp Pulse Pulse Resp BP BP Pulse Ox 03/10/23 12:39 97 03/10/23 12:30 93 03/10/23 11:31 97.9 F 90 20 104/55 94 L 03/10/23 09:18 104 H 03/10/23 09:10 106 H 03/10/23 08:00 98.1 F 103 H 20 105/64 90 L 03/10/23 04:00 98.5 F 95 18 105/59 97 03/10/23 01:50 80 16 03/10/23 00:00 98.2 F 80 16 95/53 95 03/09/23 21:15 114 H 03/09/23 21:04 112 H 03/09/23 20:00 98.4 F 122 H 22 104/64 94 L 03/09/23 17:51 106 H 20 101/58 94 L 03/09/23 15:42 118 H 03/09/23 15:33 118 H Intake and Output 03/09/23 03/10/23 03/10/23 22:59 06:59 14:59 Intake Total 118 Output Total 700 Balance -582 Intake: Oral 118 Output: Urine 700 Other: Voiding Method Toilet Toilet Urinal Urinal # Voids 400 GENERAL EXAM: Alert, disheveled, pleasant 62-year-old male, on room air, fairly comfortable in no apparent distress. HEAD: Normocephalic. EYES: Normal reaction of pupils, equal size. NOSE: Clear with pink turbinates. THROAT: No erythema or exudates. NECK: No masses, no JVD. CHEST: No chest wall deformity. LUNGS: Equal air entry with crackles, diminished right lung base. CVS: S1 and S2 normal with no audible murmur, regular rhythm. ABDOMEN: No hepatosplenomegaly, normal bowel sounds, no guarding or rigidity. SPINE: No scoliosis or deformity SKIN: No rashes CENTRAL NERVOUS SYSTEM: No focal deficits, tone is normal in all 4 extremities. EXTREMITIES: There is no peripheral edema. No clubbing, no cyanosis. Peripheral pulses are intact. Results - Laboratory Findings CBC and BMP: 03/10/23 11:18 03/10/23 11:18 PT/INR, D-dimer PT 11.0 sec (10.0-12.5) 03/09/23 11:55 INR 1.0 (<1.2) 03/09/23 11:55 D-Dimer 1.67 mg/L FEU (<0.60) H 03/09/23 11:55 Abnormal lab findings: Abnormal Labs 03/09/23 03/09/23 03/09/23 11:55 11:55 11:55 WBC 21.7 H RBC 3.93 L Hgb 7.9 L Hct 27.0 L MCV 68.6 L MCH 20.1 L MCHC 29.4 L RDW 19.8 H Plt Count 1369 H* Neutrophils # 15.4 H Monocytes # 2.1 H D-Dimer 1.67 H Sodium 125 L Chloride 91 L Creatinine 0.53 L Glucose Albumin 3.0 L 03/10/23 03/10/23 11:18 11:18 WBC 24.7 H RBC 3.62 L Hgb 7.0 L Hct 25.8 L MCV 71.4 L MCH 19.4 L MCHC 27.1 L RDW 19.3 H Plt Count 1081 H* Neutrophils # 20.8 H Monocytes # 1.6 H D-Dimer Sodium 129 L Chloride 95 L Creatinine 0.60 L Glucose 102 H Albumin 2.7 L - Diagnostic Findings Chest x-ray: image reviewed CT scan - chest: image reviewed Assessment and Plan Assessment: Right-sided chest pain secondary to a right pleural effusion, possible infiltrate and early pneumonia Leukocytosis secondary to above Anemia of unclear etiology Polycythemia Hyponatremia suspect secondary to beer consumption Daily alcohol use Chronic obstructive pulmonary disease Marijuana use History of seizure disorder History of hypertension Plan: The patient was seen and evaluated Chest x-ray, computed tomography scan of the chest, labs and medications reviewed Continue azithromycin and ceftriaxone Discontinue Zosyn Check a pro-calcitonin Educated regarding the importance of complete smoking cessation Educated regarding the importance of alcohol cessation Continue the CIWA protocol Heparin for DVT prophylaxis Continue DuoNeb inhalations We will continue to follow and make further recommendations based on his clinical status I have personally seen and examined the patient, performed the documentation and the assessment and plan as written. Number of minutes spent on the visit: 20.
[2023-03-10] MEDS ORDERED: FUROSEMIDE 10 MG/ML 2 ML VIAL IV ONE (17:52)
--- NOTE | 2023-03-10 22:41 | PN ---
PROGRESS NOTE DATE OF SERVICE: 03/10/2023 SUBJECTIVE: This 62-year-old gentleman admitted with right-sided pneumonia, also had significant EtOH also. The chest x-ray, which I reviewed personally, showed right lower lobe pneumonia. A CTA was also done, which showed right lower lobe pneumonia and some effusion as well, which I reviewed personally. PAST MEDICAL HISTORY: Reviewed. REVIEW OF SYSTEMS: 14-point review is negative except as mentioned earlier. CURRENT MEDICATIONS: Reviewed, include DuoNeb, dose and rest of medications noted. PHYSICAL EXAMINATION: VITAL SIGNS: Pulse is 90, blood pressure is 104/55, respirations 20. HEENT: Conjunctivae normal. CARDIOVASCULAR: S1, S2. RESPIRATION: Bilateral scattered rhonchi and crackles. ABDOMEN: Soft. NERVOUS SYSTEM: Nonfocal. LABORATORY DATA: Hemoglobin 7 and platelets are 1081. Sodium is 129. ASSESSMENT: 1. Right lower lobe pneumonia, possibly aspiration with sepsis, present on admission. 2. Tachycardia, sinus. 3. Anemia, multifactorial, possibly iron deficiency. 4. Rule out gastrointestinal bleed. 5. History of EtOH. 6. History of seizure disorder. 7. History of nicotine dependence. 8. Small multiple loculated right pleural effusion in the CAT scan. 9. Elevated WBC, anemia, and thrombocytosis. RECOMMENDATIONS: To continue current medications, continue symptomatic treatment. Otherwise, the patient is on empiric antibiotics at this time. We will continue the rest of the medications and will repeat labs. I would also recommend 1 unit of transfusion with Lasix 20 after because the hemoglobin has progressively dropped from 13.5 to 7 and the patient is symptomatic. See orders for further details. MMODL / IJN: [id number] /
--- NOTE | 2023-03-10 22:52 | P.CONS ---
History of Present Illness - Reason for Consult Consult date: 03/10/23 Pneumonia Requesting physician: Arnaldo Jones - Chief Complaint Increasing shortness of breath and cough x few days - History of Present Illness Patient is a 62-year-old male with a past medical history significant for seizure disorder current everyday smoker presenting to the ER for evaluation of chest pain patient has been complaining of pain to the right side of the chest describing it to be sharp, worse with inspiration moderate intensity without any radiation patient also have a cough moderate intensity with sputum production but no hemoptysis patient denies having any high-grade fever or any chills denies having any URI symptoms no nausea no vomiting no abdominal pain or any diarrhea with the symptoms the patient has been evaluated on presentation to the hospital the patient was afebrile and no fever have been recorded subsequently patient was tachycardic but not hypotensive or hypoxic did have a white count of 21.7 creatinine 0.53 influenza RSV COVID testing was negative patient did have a CT angiogram of the chest that was negative for PE did show small multiloculated right effusion emphysematous changes right base lung field consistent with pneumonia patient was started on Rocephin and Zithromax infectious disease was consulted for further management of antibiotic therapy Review of Systems Positive point and negatives has been mentioned in the HPI, complete review of systems was performed and all other systems are negative Past Medical History Past Medical History: Seizure Disorder History of Any Multi-Drug Resistant Organisms: None Reported Additional Past Surgical History / Comment(s): Right leg fracture repair Past Anesthesia/Blood Transfusion Reactions: No Reported Reaction Past Psychological History: No Psychological Hx Reported Smoking Status: Current every day smoker Past Alcohol Use History: Daily Past Drug Use History: Marijuana - Past Family History Mother Family Medical History: Coronary Artery Disease (CAD) Medications and Allergies Home Medications Medication Instructions Recorded Confirmed Type Furosemide [Lasix] 40 mg PO DAILY #30 tab 03/09/22 03/09/23 Rx Tamsulosin [Flomax] 0.4 mg PO PC-BRKFST #21 cap 03/09/22 03/09/23 Rx Thiamine [Vitamin B-1] 100 mg PO DAILY #30 tab 03/09/22 03/09/23 Rx levETIRAcetam [Keppra] 1,000 mg PO Q12HR #30 tab 07/31/22 03/09/23 Rx Albuterol Inhaler [Ventolin Hfa 2 puff INHALATION RT-QID 03/09/23 03/09/23 History Inhaler] Aspirin EC [Ecotrin Low Dose] 81 mg PO DAILY 03/09/23 03/09/23 History Losartan [Cozaar] 25 mg PO DAILY 03/09/23 03/09/23 History Metoprolol Tartrate [Lopressor] 100 mg PO BID 03/09/23 03/09/23 History Omeprazole [PriLOSEC] 20 mg PO DAILY 03/09/23 03/09/23 History Amoxic-Pot Clav 875-125Mg 1 tab PO BID 7 Days #14 tab 03/12/23 Rx [Augmentin 875-125] Budesonide-Formot 160-4.5 Mcg 2 puff INHALATION BID #1 each 03/12/23 Rx [Symbicort 160-4.5 Mcg Inhaler] Ipratropium-Albuterol Nebulize 3 ml INHALATION RT-QID #120 each 03/12/23 Rx [Duoneb 0.5 mg-3 mg/3 ml Soln] Nicotine 14Mg/24Hr Patch [Habitrol] 1 patch TRANSDERM DAILY #30 patch 03/12/23 Rx Allergies Allergy/AdvReac Type Severity Reaction Status Date / Time No Known Allergies Allergy Verified 03/09/23 12:36 Physical Exam Vitals: Vital Signs Temp Pulse Pulse Resp BP BP Pulse Ox 03/10/23 09:18 104 H 03/10/23 09:10 106 H 03/10/23 08:00 98.1 F 103 H 20 105/64 90 L 03/10/23 04:00 98.5 F 95 18 105/59 97 03/10/23 01:50 80 16 03/10/23 00:00 98.2 F 80 16 95/53 95 03/09/23 21:15 114 H 03/09/23 21:04 112 H 03/09/23 20:00 98.4 F 122 H 22 104/64 94 L 03/09/23 17:51 106 H 20 101/58 94 L 03/09/23 15:42 118 H 03/09/23 15:33 118 H 03/09/23 12:10 125 H 22 128/80 94 L Intake and Output 01/12/24 01/13/24 01/13/24 22:59 06:59 14:59 Intake Total 118 Balance 118 Intake: Oral 118 Other: Voiding Method Toilet Toilet Urinal Urinal # Voids 400 GENERAL DESCRIPTION: Middle-aged male lying in bed, no distress. No tachypnea or accessory muscle of respiration use. HEENT: Shows Pallor , no scleral icterus. Oral mucous membrane is dry. No pharyngeal erythema or thrush NECK: Trachea central, no thyromegaly. LUNGS: Unlabored breathing. Coarse breath sounds bilaterally. HEART: S1, S2, regular rate and rhythm. No loud murmur ABDOMEN: Soft, no tenderness , guarding or rigidity, no organomegaly EXTREMITIES: No edema of feet. SKIN: No rash, no masses palpable. NEUROLOGICAL: The patient is awake, alert, oriented x3, mood and affect normal. Results CBC & Chem 7: 03/11/23 10:27 03/11/23 10:45 Labs: Abnormal Lab Results - Last 24 Hours (Table) 03/09/23 03/09/23 03/09/23 Range/Units 11:55 11:55 11:55 WBC 21.7 H (3.8-10.6) k/uL RBC 3.93 L (4.30-5.90) m/uL Hgb 7.9 L (13.0-17.5) gm/dL Hct 27.0 L (39.0-53.0) % MCV 68.6 L (80.0-100.0) fL MCH 20.1 L (25.0-35.0) pg MCHC 29.4 L (31.0-37.0) g/dL RDW 19.8 H (11.5-15.5) % Plt Count 1369 H* (150-450) k/uL Neutrophils # 15.4 H (1.3-7.7) k/uL Monocytes # 2.1 H (0-1.0) k/uL D-Dimer 1.67 H (<0.60) mg/L FEU Sodium 125 L (137-145) mmol/L Chloride 91 L (98-107) mmol/L Creatinine 0.53 L (0.66-1.25) mg/dL Albumin 3.0 L (3.5-5.0) g/dL Assessment and Plan (1) Leukocytosis Status: Acute Code(s): D72.829 - ELEVATED WHITE BLOOD CELL COUNT, UNSPECIFIED SNOMED Code(s): 295563467 (2) Loculated pleural effusion Status: Acute Code(s): J90 - PLEURAL EFFUSION, NOT ELSEWHERE CLASSIFIED SNOMED Code(s): 341163510 (3) Pneumonia Status: Acute Code(s): J18.9 - PNEUMONIA, UNSPECIFIED ORGANISM SNOMED Code(s): 136594866 Plan: 1patient presented to hospital with a right-sided chest pain also have a cough bringing up some purulent sputum and did have elevated white count CT angiogram of the chest that shows right-sided multiloculated fluid collection likely repr esenting empyema/parapneumonic effusion 2-we will try to obtain a sputum for Gram stain and culture check a CRP and procalcitonin 3-patient to continue with the Zosyn, Rocephin can be discontinued no need for double beta-lactam coverage while waiting for the culture to finalize We will follow on clinical condition and cultures to further adjust medication if needed Thank you for this consultation we will follow the patient along with you Dictation was produced using [employer] dictation software. please excuse any grammatical, word or spelling errors. Time with Patient: Greater than 30
[2023-03-11] MEDS: SODIUM CHLORIDE 0.9% 1,000 ML IV SCH ×3 (05:05→17:47)
[2023-03-11] MEDS: PANTOPRAZOLE 40 MG TABLET PO SCH (05:05)
[2023-03-11] MEDS: IPRATROPIUM-ALBUTEROL 3 ML NEB INHALATION SCH ×4 (08:45→21:02)
[2023-03-11] MEDS: ASPIRIN 81 MG PO SCH (09:04)
[2023-03-11] MEDS: HEPARIN SODIUM,PORCINE 5,000 UNIT/ML 1 ML VIAL SQ SCH ×2 (09:04→20:05)
[2023-03-11] MEDS: FUROSEMIDE 40 MG TAB PO SCH (09:04)
[2023-03-11] MEDS: TAMSULOSIN 0.4 MG CAP.ER.24H PO SCH (09:04)
[2023-03-11] MEDS: levETIRAcetam 500 MG TAB PO SCH ×2 (09:04→20:05)
[2023-03-11] MEDS: AZITHROMYCIN 500 MG TAB PO SCH (09:04)
[2023-03-11] MEDS: THIAMINE 100 MG TAB PO SCH (09:04)
[2023-03-11] MEDS: METOPROLOL TARTRATE 50 MG TAB PO SCH ×2 (09:05→20:05)
[2023-03-11] MEDS: NICOTINE 14MG/24HR PATCH TRANSDERM SCH ×2 (09:05→09:09)
[2023-03-11] MEDS: PIPERACILLIN-TAZOBACTAM 3.375 GM in SODIUM CHLORIDE 0.9% 100 ML IVPB SCH ×2 (09:05→16:45)
[2023-03-11 11:30] LABS: Anisocytosis Slight; Basophils % (A) 0 %; Eosinophils # (A) 0.1 k/uL (0-0.7); Eosinophils % (A) 1 %; HCT 27.8 % (39.0-53.0); HGB 8.4 gm/dL (13.0-17.5); Hypochromasia Marked; Lymphocytes # (A) 2.4 k/uL (1.0-4.8); Lymphocytes % (A) 16 %; MCH 21.7 pg (25.0-35.0); MCHC 30.2 g/dL (31.0-37.0); Mean Platelet Volume 7.2; Microcytosis Marked; Monocytes # (A) 1.1 k/uL (0-1.0); Monocytes % (A) 7 %; Neutrophils # (A) 11.3 k/uL (1.3-7.7); Neutrophils % (A) 74 %; Poikilocytosis Moderate; RBC 3.86 m/uL (4.30-5.90); RDW 19.6 % (11.5-15.5); WBC 15.2 k/uL (3.8-10.6)
[2023-03-11 11:37] LABS: African American GFR (CKD) >90 (>60 ml/min/1.73 sqM); Anion Gap 11 mmol/L; Blood Urea Nitrogen 9 mg/dL (9-20); Calcium 8.4 mg/dL (8.4-10.2); Carbon Dioxide 24 mmol/L (22-30); Chloride 96 mmol/L (98-107); Glucose 96 mg/dL (74-99); Non-African American GFR(CKD) >90 (>60 ml/min/1.73 sqM); Potassium 4.5 mmol/L (3.5-5.1); Sodium 131 mmol/L (137-145)
[2023-03-11 11:43] LABS: Platelet Count 1050 k/uL (150-450)
[2023-03-11] MEDS: LOSARTAN 25 MG TAB PO SCH (12:23)
--- NOTE | 2023-03-11 15:08 | P.PN ---
Subjective Progress Note Date: 03/11/23 Principal diagnosis: Shortness of breath. This is a 62-year-old male patient with a known history of seizure disorder, chronic obstructive pulmonary disease, chronic and ongoing tobacco dependence, marijuana use, daily alcohol use, hypertension, gastroesophageal reflux disease who presented here to the emergency room yesterday with right-sided chest discomfort, shortness of breath, pain on inhalation, cough and congestion. Chest x-ray does reveal a right lower lobe infiltrate and a small right pleural effusion. CT angiogram ruled out pulmonary embolism. Small multiple loculated right pleural fluid collections. Moderate chronic changes in the right lung base. Emphysematous changes. Right base lung infiltrates consistent with pneumonia versus atelectasis. White count 24.7. Hemoglobin 7.0. Platelets 1081. Sodium 129. Potassium 4.0. Bicarb 24. BUN 11. Creatinine 0.60. Glucose 102. Viral screen negative. He is seen today in consultation on the selective care unit. He is currently resting comfortably in bed. Awake and alert in no acute distress. Maintaining O2 saturations in the 90s on room air. He is afebrile. Hemodynamically stable. Progress note dated 03/11/2023. 62-year-old male seen yesterday in consultation. The patient was admitted with a diagnosis of shortness of breath, cough, and chest congestion. CT angiogram was negative for pulmonary embolism. Chest x-ray revealed a possible right lower lobe pneumonia. Clinically, the patient's feeling much better today. Currently, he is on room air, and receiving Zosyn. He is also getting saline at 130 mL an hour. Labs, x-rays, and medications are all reviewed. Currently, his white count is down to 15.2 from 24.7, hemoglobin 8.4, hematocrit 27.8, and platelet count 1050. Sodium 131, potassium 4.5, chlorides 96, CO2 24, BUN 9, and creatinine 0.56. Pro-calcitonin level is modestly elevated at 0.11. Viral screen was negative. Objective - Vital Signs Vital signs: Vital Signs Temp 98 F 03/11/23 11:39 Pulse 88 03/11/23 11:54 Resp 20 03/11/23 11:39 BP 97/64 03/11/23 11:39 Pulse Ox 94 L 03/11/23 11:39 FiO2 Intake & Output 0103/11/23 03/11/23 18:59 06:59 18:59 Intake Total 1303 310 240 Output Total 1300 2100 300 Balance 3 Intake: Intake, IV Titration 705 Amount Piperacillin-Tazobactam 3 200 .375 gm In Sodium Chloride 0.9% 100 ml @ 25 mls/hr IVPB Q8HR [facility] Rx# :[id number] Sodium Chloride 0.9% 1, 455 000 ml @ 130 mls/hr IV . Q7H42M [facility] Rx#:[id number] cefTRIAXone 1 gm In 50 Sodium Chloride 0.9% 50 ml @ 100 mls/hr IVPB Q24HR [facility] Rx#:[id number] Oral 598 240 Blood Product 0 310 Rc Irr As1 Unit 0 310 [id number] Output: Urine 1300 2100 300 Other: Voiding Method Urinal - Exam No acute distress, oriented 3. No respiratory distress. Early on room air. HEENT examination is grossly unremarkable. Mucous membranes are moist. No oral lesions. Neck supple. Full range of motion. No adenopathy thyromegaly or neck vein distention. Cardiovascular examination reveals regular rhythm rate. S1-S2 normal. No S3 or S4. No discernible murmur noted. Heart rate 88 bpm. Lungs reveal mild scattered rhonchi. No wheezes. No crackles. Breath sounds equal bilaterally. Room air saturation is 94%. Abdomen soft bowel sounds are heard. No masses or tenderness. Extremities are intact. No cyanosis clubbing or edema. Skin is without rash or lesion. Neurologic examination is brief but nonfocal. - Labs CBC & Chem 7: 03/11/23 10:27 03/11/23 10:45 Labs: Abnormal Lab Results - Last 24 Hours (Table) 03/10/23 03/10/23 03/11/23 Range/Units 11:18 14:08 10:27 WBC 15.2 H (3.8-10.6) k/uL RBC 3.86 L (4.30-5.90) m/uL Hgb 8.4 L (13.0-17.5) gm/dL Hct 27.8 L (39.0-53.0) % MCV 72.0 L (80.0-100.0) fL MCH 21.7 L (25.0-35.0) pg MCHC 30.2 L (31.0-37.0) g/dL RDW 19.6 H (11.5-15.5) % Plt Count 1050 H* (150-450) k/uL Neutrophils # 11.3 H (1.3-7.7) k/uL Monocytes # 1.1 H (0-1.0) k/uL Sodium (137-145) mmol/L Chloride (98-107) mmol/L Creatinine (0.66-1.25) mg/dL Procalcitonin 0.11 H (0.02-0.09) ng/mL Crossmatch See Detail 03/11/23 Range/Units 10:45 WBC (3.8-10.6) k/uL RBC (4.30-5.90) m/uL Hgb (13.0-17.5) gm/dL Hct (39.0-53.0) % MCV (80.0-100.0) fL MCH (25.0-35.0) pg MCHC (31.0-37.0) g/dL RDW (11.5-15.5) % Plt Count (150-450) k/uL Neutrophils # (1.3-7.7) k/uL Monocytes # (0-1.0) k/uL Sodium 131 L (137-145) mmol/L Chloride 96 L (98-107) mmol/L Creatinine 0.56 L (0.66-1.25) mg/dL Procalcitonin (0.02-0.09) ng/mL Crossmatch Microbiology - Last 24 Hours (Table) 03/10/23 12:45 Gram Stain - Preliminary Sputum 03/09/23 14:15 Blood Culture - Preliminary Blood 03/09/23 14:00 Blood Culture - Preliminary Blood Assessment and Plan Assessment: Right-sided chest pain secondary to a right pleural effusion, possible infiltrate and early pneumonia. Leukocytosis secondary to above. Anemia of unclear etiology. Polycythemia. Hyponatremia, suspect secondary to beer consumption Daily alcohol use. Chronic obstructive pulmonary disease. Marijuana use. History of seizure disorder. History of hypertension. Plan: Plan dated 03/11/2023. The patient is currently on Zosyn. The patient also continues on breathing treatments with albuterol sulfate and ipratropium bromide. Labs, x-rays, medications are reviewed. A nicotine patch was added. The patient is feeling much better today than yesterday. We will continue to follow the patient, make recommendations along the way. The patient is counseled about the importance of smoking cessation Time with Patient: Less than 30
--- NOTE | 2023-03-11 16:38 | P.PN ---
Subjective Progress Note Date: 03/11/23 Principal diagnosis: Reason for follow-up is leukocytosis and loculated effusion Patient is a 62-year-old male with a past medical history significant for seizure disorder current everyday smoker presenting to the ER for evaluation of chest pain patient has been complaining of pain to the right side of the chest, patient did have a CT angiogram of the chest that was negative for PE shows multiloculated right-sided effusion also have elevated white count concerning for possible empyema. On today's evaluation that is 03/11/2023 patient denies having any fever or any chills patient is breathing comfortably on room air patient denies any chest pain has decreased intensity cough is decreased in intensity no nausea vomiting abdominal pain or diarrhea. The patient white count is at 15.2, creatinine 0.56 Objective - Vital Signs Vital signs: Vital Signs Temp 98 F 03/11/23 11:39 Pulse 84 03/11/23 15:54 Resp 20 03/11/23 11:39 BP 97/64 03/11/23 11:39 Pulse Ox 94 L 03/11/23 11:39 FiO2 Intake & Output 03/10/23 03/11/23 03/11/23 18:59 06:59 18:59 Intake Total 1303 310 360 Output Total 1300 2100 900 Balance -3079 - Intake: Intake, IV Titration 705 Amount Piperacillin-Tazobactam 3 200 .375 gm In Sodium Chloride 0.9% 100 ml @ 25 mls/hr IVPB Q8HR [facility] Rx# :[id number] Sodium Chloride 0.9% 1, 455 000 ml @ 130 mls/hr IV . Q7H42M [facility] Rx#:[id number] cefTRIAXone 1 gm In 50 Sodium Chloride 0.9% 50 ml @ 100 mls/hr IVPB Q24HR [facility] Rx#:[id number] Oral 598 360 Blood Product 0 310 Rc Irr As1 Unit 0 310 [id number] Output: Urine 1300 2100 900 Other: Voiding Method Urinal - Exam GENERAL DESCRIPTION: Middle-age male lying in bed in no distress RESPIRATORY SYSTEM: Unlabored breathing , decreased breath sounds at bases HEART: S1 S2 regular rate and rhythm , ABDOMEN: Soft , no tenderness EXTREMITIES: No edema feet - Labs CBC & Chem 7: 03/11/23 10:27 03/11/23 10:45 Labs: Abnormal Lab Results - Last 24 Hours (Table) 03/10/23 03/10/23 03/11/23 Range/Units 11:18 14:08 10:27 WBC 15.2 H (3.8-10.6) k/uL RBC 3.86 L (4.30-5.90) m/uL Hgb 8.4 L (13.0-17.5) gm/dL Hct 27.8 L (39.0-53.0) % MCV 72.0 L (80.0-100.0) fL MCH 21.7 L (25.0-35.0) pg MCHC 30.2 L (31.0-37.0) g/dL RDW 19.6 H (11.5-15.5) % Plt Count 1050 H* (150-450) k/uL Neutrophils # 11.3 H (1.3-7.7) k/uL Monocytes # 1.1 H (0-1.0) k/uL Sodium (137-145) mmol/L Chloride (98-107) mmol/L Creatinine (0.66-1.25) mg/dL Procalcitonin 0.11 H (0.02-0.09) ng/mL Crossmatch See Detail 03/11/23 Range/Units 10:45 WBC (3.8-10.6) k/uL RBC (4.30-5.90) m/uL Hgb (13.0-17.5) gm/dL Hct (39.0-53.0) % MCV (80.0-100.0) fL MCH (25.0-35.0) pg MCHC (31.0-37.0) g/dL RDW (11.5-15.5) % Plt Count (150-450) k/uL Neutrophils # (1.3-7.7) k/uL Monocytes # (0-1.0) k/uL Sodium 131 L (137-145) mmol/L Chloride 96 L (98-107) mmol/L Creatinine 0.56 L (0.66-1.25) mg/dL Procalcitonin (0.02-0.09) ng/mL Crossmatch Microbiology - Last 24 Hours (Table) 03/10/23 12:45 Gram Stain - Preliminary Sputum 03/09/23 14:15 Blood Culture - Preliminary Blood 03/09/23 14:00 Blood Culture - Preliminary Blood Assessment and Plan (1) Leukocytosis Current Visit: Yes Status: Acute Code(s): D72.829 - ELEVATED WHITE BLOOD C ELL COUNT, UNSPECIFIED SNOMED Code(s): 225860303 (2) Loculated pleural effusion Current Visit: Yes Status: Acute Code(s): J90 - PLEURAL EFFUSION, NOT ELSEWHERE CLASSIFIED SNOMED Code(s): 727186742 (3) Pneumonia Current Visit: Yes Status: Acute Code(s): J18.9 - PNEUMONIA, UNSPECIFIED ORGANISM SNOMED Code(s): 284032511 Plan: 1patient presented to hospital with a right-sided chest pain also have a cough bringing up some purulent sputum and did have elevated white count CT angiogram of the chest that shows right-sided multiloculated fluid collection likely representing empyema/parapneumonic effusion 2-sputum cultures currently pending, patient did have procalcitonin of 0.11 3-patient to continue with the Zosyn, while waiting for the culture to finalize Dictation was produced using [employer] dictation software. please excuse any grammatical, word or spelling errors.
[2023-03-11 23:16] LABS: % Iron Saturation 6.31 (15.00-50.00); Iron 19 UG/DL (65-175); Total Iron Binding Capacity 301 UG/DL (228-460)
[2023-03-12] MEDS: PIPERACILLIN-TAZOBACTAM 3.375 GM in SODIUM CHLORIDE 0.9% 100 ML IVPB SCH ×2 (00:03→08:51)
--- NOTE | 2023-03-12 04:55 | PN ---
PROGRESS NOTE DATE OF SERVICE: 03/11/2023 SUBJECTIVE: This is a 62-year-old gentleman, who was admitted with right-sided pneumonia, also had history of EtOH. No chest pain or palpitations. No fever. Yesterday's chest x-ray showed some improvement. PHYSICAL EXAMINATION: VITAL SIGNS: The pulse is 105, blood pressure n, and respirations 18. CHEST: Few scattered rhonchi. ABDOMEN: Soft. NERVOUS SYSTEM: Nonfocal. LABORATORY DATA: WBC n, hemoglobin is 7, rest of the labs are noted. Procalcitonin 0.11. ASSESSMENT: 1. Right lower lobe pneumonia, possibly aspiration with sepsis, present on admission. 2. Tachycardia, sinus. 3. Anemia, multifactorial, possibly iron deficiency. 4. Rule out GI bleed. 5. History of EtOH. 6. History of seizure disorder. 7. History of nicotine dependence. 8. Multiple loculated right pleural effusion in the CAT scan. 9. Increased WBC, anemia, thrombocytosis. RECOMMENDATIONS: Continue current management and treatment, otherwise, at this time. I would recommend iron study and 1 unit transfusion for symptomatic anemia. No obvious bleeding is noted, however, but we will monitor the patient closely, closely follow with multiple consultants. Further recommendations to follow. MMODL / IJN: [id number] / OSMIN
[2023-03-12] MEDS: PANTOPRAZOLE 40 MG TABLET PO SCH (06:29)
[2023-03-12] MEDS: SODIUM CHLORIDE 0.9% 1,000 ML IV SCH (06:29)
[2023-03-12] MEDS: IPRATROPIUM-ALBUTEROL 3 ML NEB INHALATION SCH ×2 (08:36→11:57)
[2023-03-12] MEDS: levETIRAcetam 500 MG TAB PO SCH (08:50)
[2023-03-12] MEDS: TAMSULOSIN 0.4 MG CAP.ER.24H PO SCH (08:50)
[2023-03-12] MEDS: NICOTINE 14MG/24HR PATCH TRANSDERM SCH (08:50)
[2023-03-12] MEDS: ASPIRIN 81 MG PO SCH (08:50)
[2023-03-12] MEDS: THIAMINE 100 MG TAB PO SCH (08:50)
[2023-03-12] MEDS: FUROSEMIDE 40 MG TAB PO SCH (08:50)
[2023-03-12] MEDS: METOPROLOL TARTRATE 50 MG TAB PO SCH (08:50)
[2023-03-12] MEDS: HEPARIN SODIUM,PORCINE 5,000 UNIT/ML 1 ML VIAL SQ SCH (08:51)
[2023-03-12] MEDS: LOSARTAN 25 MG TAB PO SCH (08:53)
[2023-03-12 11:13] VITALS: BP 96/58; RESP 17; TEMP 97.8
--- NOTE | 2023-03-12 11:21 | P.PN ---
Subjective Progress Note Date: 03/12/23 On 03/12/2022, seen the patient for a follow-up. The patient was hospitalized for shortness of breath and right-sided chest pain with a right-sided pleural effusion and pneumonia and leukocytosis. He has daily alcohol drinking. He has hyponatremia assumed to be due to the chronic alcoholism. He also has COPD and marijuana smoking. He has seizure disorder and hypertension. He is also a chronic smoker. Consumes alcohol on a daily basis. CT of the chest was done showed no evidence of any pulm embolism. Small multiple loculated pleural fluid collection along with background emphysema. His sodium level was 139 at time of admission with a white cell count of 24. Started IV Zosyn. Procalcitonin level was modestly elevated 0.11. Viral screen was negative. He is on oxygen on room air with a pulse ox of 91%. Blood work from today showing a sodium level of 131, potassium 4.5, BUN is at 19 with a creatinine of 0.5. The patient is essentially on the same treatment. The patient remains on IV Zosyn. He has no complaints. He is currently on room air oxygen. Is taking Lasix 40 mg by mouth daily. The patient is feeling much better at this point. He is on room air oxygen. Electrolytes are stable. No fever. Remains on same antibiotic coverage. Awaiting follow-up CBC. A repeat chest x-ray will be also ordered. Objective - Vital Signs Vital signs: Vital Signs Temp 97.8 F 03/12/23 08:00 Pulse 110 H 03/12/23 08:49 Resp 17 03/12/23 08:00 BP 96/58 03/12/23 08:00 Pulse Ox 100 03/12/23 08:00 FiO2 Intake & Output 03/11/23 03/12/23 03/12/23 18:59 06:59 18:59 Intake Total 1390 240 Output Total 1999 550 Balance -610 -310 Intake: Intake, IV Titration 670 Amount Piperacillin-Tazobactam 3 100 .375 gm In Sodium Chloride 0.9% 100 ml @ 25 mls/hr IVPB Q8HR [facility] Rx# :[id number] Sodium Chloride 0.9% 1, 520 000 ml @ 130 mls/hr IV . Q7H42M [facility] Rx#:[id number] cefTRIAXone 1 gm In 50 Sodium Chloride 0.9% 50 ml @ 100 mls/hr IVPB Q24HR [facility] Rx#:[id number] Oral 720 240 Output: Urine 2000 550 Other: Voiding Method Urinal Urinal - Exam No acute distress, oriented 3. No respiratory distress. Early on room air. HEENT examination is grossly unremarkable. Mucous membranes are moist. No oral lesions. Neck supple. Full range of motion. No adenopathy thyromegaly or neck vein distention. Cardiovascular examination reveals regular rhythm rate. S1-S2 normal. No S3 or S4. No discernible murmur noted. Heart rate 88 bpm. Lungs reveal mild scattered rhonchi. No wheezes. No crackles. Breath sounds equal bilaterally. Room air saturation is 94%. Abdomen soft bowel sounds are heard. No masses or tenderness. Extremities are intact. No cyanosis clubbing or edema. Skin is without rash or lesion. Neurologic examination is brief but nonfocal. - Labs CBC & Chem 7: 03/11/23 10:27 03/11/23 10:45 Labs: Abnormal Lab Results - Last 24 Hours (Table) 03/10/23 03/11/23 03/11/23 Range/Units 14:08 10:27 10:45 WBC 15.2 H (3.8-10.6) k/uL RBC 3.86 L (4.30-5.90) m/uL Hgb 8.4 L (13.0-17.5) gm/dL Hct 27.8 L (39.0-53.0) % MCV 72.0 L (80.0-100.0) fL MCH 21.7 L (25.0-35.0) pg MCHC 30.2 L (31.0-37.0) g/dL RDW 19.6 H (11.5-15.5) % Plt Count 1050 H* (150-450) k/uL Neutrophils # 11.3 H (1.3-7.7) k/uL Monocytes # 1.1 H (0-1.0) k/uL Sodium 131 L (137-145) mmol/L Chloride 96 L (98-107) mmol/L Creatinine 0.56 L (0.66-1.25) mg/dL Iron 19 L (65-175) UG/DL % Saturation 6.31 L (15.00-50.00) Crossmatch See Detail Microbiology - Last 24 Hours (Table) 03/09/23 14:15 Blood Culture - Preliminary Blood 03/09/23 14:00 Blood Culture - Preliminary Blood 03/10/23 12:45 Gram Stain - Preliminary Sputum Assessment and Plan Plan: Assessment Small loculated right-sided pleural effusion along with possibility of right lower lobe pneumonia, consider aspiration based on his history of alcoholism. Currently on IV Zosyn. Procalcitonin is mildly elevated Acute leukocytosis secondary to above Anemia of chronic disease Hyponatremia could be related to alcoholism/pneumonia Daily alcohol consumption/alcoholism Daily smoking, both tobacco and marijuana COPD Acute hypoxic respiratory failure currently on room air oxygen with a pulse ox of 91% History of seizure disorder Hypertension Plan Repeat chest x-ray in a.m. Clinically improving. Awaiting follow-up CBC Monitor oxygenation Continue IV Zosyn Continue bronchodilators Monitor electrolytes and white cell count Nicotine patch Watch for any signs of delirium
[2023-03-12 12:24] VITALS: PULSE 92
--- NOTE | 2023-03-12 17:20 | DS ---
DISCHARGE SUMMARY FINAL DIAGNOSES: 1. Right lower lobe pneumonia, possibly aspiration with sepsis, present on admission. 2. Acute sinus tachycardia. 3. Anemia, multifactorial, possible iron deficiency. 4. Chronic obstructive pulmonary disease. 5. History of EtOH. 6. History of seizure disorder. 7. History of nicotine dependence. 8. Multiple loculated right pleural effusion in the CAT scan. DISCHARGE DISPOSITION: The patient will be discharged in stable condition and guarded prognosis. HISTORY OF PRESENT ILLNESS: This is a 62-year-old male with past medical history significant for alcohol intake, admitted with pneumonia and pleural effusion, treated symptomatically. The patient improved significantly. Recommend outpatient followup. Hemoglobin is 8.4, stable after transfusion. Recommend outpatient followup with GI also. Otherwise, . DISCHARGE MEDICATIONS: 1. Add DuoNeb q.i.d. and p.r.n. 2. Symbicort 1 b.i.d. 3. Antibiotics, Augmentin 875 mg p.o. b.i.d. for 1 week. FOLLOWUP: Follow up with Pulmonary, ID, and Dr. Bello and follow up with GI for evaluation for anemia. MMODL / IJN: [id number] /
--- NOTE | 2023-03-19 14:42 | P.PN ---
Subjective Progress Note Date: 03/12/23 Principal diagnosis: Reason for follow-up is leukocytosis and loculated effusion Patient is a 62-year-old male with a past medical history significant for seizure disorder current everyday smoker presenting to the ER for evaluation of chest pain patient has been complaining of pain to the right side of the chest, patient did have a CT angiogram of the chest that was negative for PE shows multiloculated right-sided effusion also have elevated white count concerning for possible empyema. On today's evaluation that is 03/12/2023 patient remains to be afebrile, patient is breathing comfortably on room air patient denies any chest pain has decreased intensity, the patient cough is decreased in intensity and less productive, no nausea vomiting abdominal pain or diarrhea. The patient white count is at 15.2 as of yesterday no CBC was done today, creatinine 0.56 Objective - Vital Signs Vital signs: Vital Signs Temp 97.8 F 03/12/23 08:00 Pulse 92 03/12/23 12:11 Resp 17 03/12/23 08:00 BP 96/58 03/12/23 08:00 Pulse Ox 100 03/12/23 08:00 FiO2 Intake & Output 03/11/23 03/12/23 03/12/23 18:59 06:59 18:59 Intake Total 1390 240 480 Output Total 2000 550 1300 Balance -359 -640 -618 Intake: Intake, IV Titration 670 Amount Piperacillin-Tazobactam 3 100 .375 gm In Sodium Chloride 0.9% 100 ml @ 25 mls/hr IVPB Q8HR [facility] Rx# :[id number] Sodium Chloride 0.9% 1, 520 000 ml @ 130 mls/hr IV . Q7H42M [facility] Rx#:[id number] cefTRIAXone 1 gm In 50 Sodium Chloride 0.9% 50 ml @ 100 mls/hr IVPB Q24HR [facility] Rx#:[id number] Oral 720 240 480 Output: Urine 2000 550 1300 Other: Voiding Method Urinal Urinal - Exam GENERAL DESCRIPTION: Middle-age male lying in bed in no distress RESPIRATORY SYSTEM: Unlabored breathing , decreased breath sounds at bases HEART: S1 S2 regular rate and rhythm , ABDOMEN: Soft , no tenderness EXTREMITIES: No edema feet - Labs CBC & Chem 7: 03/11/23 10:27 03/11/23 10:45 Labs: Abnormal Lab Results - Last 24 Hours (Table) 03/10/23 03/11/23 Range/Units 14:08 10:45 Iron 19 L (65-175) UG/DL % Saturation 6.31 L (15.00-50.00) Crossmatch See Detail Microbiology - Last 24 Hours (Table) 03/10/23 12:45 Gram Stain - Preliminary Sputum Sputum Culture - Preliminary Gram Neg Bacilli Belkis albicans 03/09/23 14:15 Blood Culture - Preliminary Blood 03/09/23 14:00 Blood Culture - Preliminary Blood Assessment and Plan (1) Leukocytosis Status: Acute Code(s): D72.829 - ELEVATED WHITE BLOOD CELL COUNT, UNSPECIFIED SNOMED Code(s): 137943013 (2) Loculated pleural effusion Status: Acute Code(s): J90 - PLEURAL EFFUSION, NOT ELSEWHERE CLASSIFIED SNOMED Code(s): 670654805 (3) Pneumonia Status: Acute Code(s): J18.9 - PNEUMONIA, UNSPECIFIED ORGANISM SNOMED Code(s): 899190155 Plan: 1patient presented to hospital with a right-sided chest pain also have a cough bringing up some purulent sputum and did have elevated white count CT angiogram of the chest that shows right-sided multiloculated fluid collection likely representing empyema/parapneumonic effusion 2-sputum cultures currently pending, patient did have procalcitonin of 0.11 3-patient has shown some clinical improvement and will continue with the Zosyn, while waiting for the culture to finalize to determine his discharge antibiotics Dictation was produced using [employer] dictation software. please excuse any grammatical, word or spelling errors. Time with Patient: Less than 30
== END 2023-03-12 15:11 | disposition home or self-care (01) | DRG 871 ==
LOC: EC 10:21 → 3SCARD 13:58
PROVIDERS: ADMIT Internal Medicine; ATTEND Internal Medicine
PROC: HZ2ZZZZ Detoxification Services for Substance Abuse Treatment (ICD-10-PCS; principal; 2023-03-09)
DX: A41.89 Other specified sepsis (principal); J69.0 Pneumonitis due to inhalation of food and vomit; J96.01 Acute respiratory failure with hypoxia; E87.1 Hypo-osmolality and hyponatremia; D63.8 Anemia in other chronic diseases classified elsewhere; D75.1 Secondary polycythemia; D75.839 Thrombocytosis, unspecified; Z11.52 Encounter for screening for COVID-19; D50.9 Iron deficiency anemia, unspecified; J44.9 Chronic obstructive pulmonary disease, unspecified; G40.909 Epilepsy, unspecified, not intractable, without status epilepticus; Z86.59 Personal history of other mental and behavioral disorders; F17.210 Nicotine dependence, cigarettes, uncomplicated; Z71.6 Tobacco abuse counseling; I10 Essential (primary) hypertension; J43.9 Emphysema, unspecified; Z79.51 Long term (current) use of inhaled steroids; Z79.82 Long term (current) use of aspirin; Z79.899 Other long term (current) drug therapy; Z82.49 Family history of ischemic heart disease and other diseases of the circulatory system; Z71.41 Alcohol abuse counseling and surveillance of alcoholic
CPT/HCPCS: 36415; 71045; 71275; 80048; 80053; 83540; 83550; 83605; 83735; 83880; 84145; 84484; 85025; 85379; 85610; 85730; 86850; 86900; 86901; 86920; 87040; 87070; 87077; 87186; 87205; 87449; 87636; 93005; 94640; 96361; 96365; 96367; 96368; 96372; 96375; 99285

== ENCOUNTER 2023-06-20 14:45 | Emergency (ER) | payer MEDICARE, OTHER ==
--- NOTE | 2023-06-20 14:57 | ED ---
General Adult HPI - General Chief complaint: Seizure Stated complaint: Seizure Time Seen by Provider: 06/20/23 14:47 Source: patient, EMS, RN notes reviewed, old records reviewed Mode of arrival: EMS Limitations: no limitations - History of Present Illness Initial comments: 63-year-old male with seizure disorder presents for evaluation of tonic-clonic s eizure this was witnessed by family and was postictal upon applications programmer analyst arrival. Seizure lasted approximately 3 minutes. Patient states he has several seizures a year and he is not compliant with his antiseizure medication. He also admits to alcohol consumption which he states he drinks daily, only beer. Denies physical complaints. Patient was initially postictal but had returned to baseline prior to arrival. Alert and oriented x 3. No complaints. No injury. No head trauma. - Related Data Home Medications Medication Instructions Recorded Confirmed Albuterol Inhaler [Ventolin Hfa 2 puff INHALATION RT-QID 03/09/23 03/09/23 Inhaler] Aspirin EC [Ecotrin Low Dose] 81 mg PO DAILY 03/09/23 03/09/23 Losartan [Cozaar] 25 mg PO DAILY 03/09/23 03/09/23 Metoprolol Tartrate [Lopressor] 100 mg PO BID 03/09/23 03/09/23 Omeprazole [PriLOSEC] 20 mg PO DAILY 03/09/23 03/09/23 Previous Rx's Medication Instructions Recorded Furosemide [Lasix] 40 mg PO DAILY #30 tab 03/09/22 Tamsulosin [Flomax] 0.4 mg PO PC-BRKFST #21 cap 03/09/22 Thiamine [Vitamin B-1] 100 mg PO DAILY #30 tab 03/09/22 levETIRAcetam [Keppra] 1,000 mg PO Q12HR #30 tab 07/31/22 Amoxic-Pot Clav 875-125Mg 1 tab PO BID 7 Days #14 tab 03/12/23 [Augmentin 875-125] Budesonide-Formot 160-4.5 Mcg 2 puff INHALATION BID #1 each 03/12/23 [Symbicort 160-4.5 Mcg Inhaler] Ipratropium-Albuterol Nebulize 3 ml INHALATION RT-QID #120 each 03/12/23 [Duoneb 0.5 mg-3 mg/3 ml Soln] Nicotine 14Mg/24Hr Patch [Habitrol] 1 patch TRANSDERM DAILY #30 patch 03/12/23 Allergies Allergy/AdvReac Type Severity Reaction Status Date / Time No Known Allergies Allergy Verified 06/20/23 14:51 Review of Systems ROS Statement: Those systems with pertinent positive or pertinent negative responses have been documented in the HPI. ROS Other: All systems not noted in ROS Statement are negative. Past Medical History Past Medical History: Seizure Disorder History of Any Multi-Drug Resistant Organisms: None Reported Additional Past Surgical History / Comment(s): Right leg fracture repair Past Anesthesia/Blood Transfusion Reactions: No Reported Reaction Past Psychological History: No Psychological Hx Reported Smoking Status: Current every day smoker Past Alcohol Use History: Daily Past Drug Use History: Marijuana - Past Family History Mother Family Medical History: Coronary Artery Disease (CAD) General Exam Limitations: no limitations General appearance: alert, in no apparent distress Head exam: Present: atraumatic, normocephalic Eye exam: Present: normal appearance, PERRL ENT exam: Present: normal exam Neck exam: Present: normal inspection. Absent: tenderness, meningismus Respiratory exam: Present: normal lung sounds bilaterally. Absent: respiratory distress, wheezes Cardiovascular Exam: Present: regular rate, normal rhythm GI/Abdominal exam: Present: soft. Absent: distended, tenderness, guarding Extremities exam: Present: normal inspection, normal capillary refill. Absent: pedal edema, calf tenderness Neurological exam: Present: alert, oriented X3, CN II-XII intact. Absent: motor sensory deficit Psychiatric exam: Present: normal affect, normal mood Skin exam: Present: warm, dry, intact. Absent: cyanosis, diaphoretic Course Vital Signs 06/20/23 14:46 Temperature 98.1 F Pulse Rate 72 Respiratory 16 Rate Blood Pressure 132/69 O2 Sat by Pulse 97 Oximetry - Reevaluation(s) Reevaluation #1: 06/20/23 15:48 Patient reevaluated, resting comfortably, alert and oriented x 3 no complaints, eager for discharge. States he will follow closely with his neurologist. Medical Decision Making - Medical Decision Making Was pt. sent in by a medical professional or institution (, PA, GENERAL FARM MANAGER, urgent care, hospital, or penitentiary...) When possible be specific @ -No Did you speak to anyone other than the patient for history (EMS, parent, family, police, friend...)? What history was obtained from this source @ -No Did you review nursing and triage notes (agree or disagree)? Why? @ -I reviewed and agree with nursing and triage notes Were old charts reviewed (outside hosp., previous admission, EMS record, old EKG, old radiological studies, urgent care reports/EKG's, penitentiary records)? Report findings @ -No old charts were reviewed Differential Seizure: Recurrent seizure disorder, febrile seizure, alcohol withdrawal, stimulants, meningitis, encephalitis, intercranial hemorrhage, intracranial tumor, stroke, eclampsia, thyrotoxicosis, hypocalcemia, hyponatremia, hypernatremia, hypomagnesemia, psychogenic, this is not meant to be an all-inclusive list. EKG interpreted by me (3pts min.). @EKG sinus rhythm right bundle branch block, rate of 76, [place] interval 174, QRS duration 125, QTc [address] segment elevation. X-rays interpreted by me (1pt min.). @ -None done CT interpreted by me (1pt min.). @ -None done U/S interpreted by me (1pt. min.). @ -None done What testing was considered but not performed or refused? (CT, X-rays, U/S, la bs)? Why? @ -None What meds were considered but not given or refused? Why? @ -None Did you discuss the management of the patient with other professionals (professionals i.e. , PA, GENERAL FARM MANAGER, lab, RT, psych nurse, psych social worker, fitness and wellness manager, teacher, quality officer, correctional case manager)? Give summary @ -No Was smoking cessation discussed for >3mins.? @ -No Was critical care preformed (if so, how long)? @ -No Were there social determinants of health that impacted care today? How? (Homelessness, low income, unemployed, alcoholism, drug addiction, transportation, low edu. Level, literacy, decrease access to med. care, long-term, rehab)? @ -No Was there de-escalation of care discussed even if they declined (Discuss DNR or withdrawal of care, Hospice)? DNR status @ -No What co-morbidities impacted this encounter? (DM, HTN, Smoking, COPD, CAD, Cancer, CVA, ARF, Chemo, Hep., AIDS, mental health diagnosis, sleep apnea, morbid obesity)? @ -Seizure disorder, alcohol abuse Was patient admitted / discharged? Hospital course, mention meds given and route, prescriptions, significant lab abnormalities, going to OR and other pertinent info. @63-year-old male presenting with witnessed seizure at home. Patient alert and oriented at the time my evaluation without complaints. Laboratory testing reveals mild leukocytosis, stable anemia, CO2 of 16 likely secondary to seizure, patient has hypoalbuminemia and hypocalcemia. His laboratory studies are baseline. The patient is eager for discharge states he will take his medication as prescribed and follow-up closely with his neurologist. States he does not drive. Undiagnosed new problem with uncertain prognosis? @ -No Drug Therapy requiring intensive monitoring for toxicity (Heparin, Nitro, Insulin, Cardizem)? @ -No Were any procedures done? @ -No Diagnosis/symptom? @ -Recurrent seizure, anemia Acute, or Chronic, or Acute on Chronic? @ -Acute Uncomplicated (without systemic symptoms) or Complicated (systemic symptoms)? @Complicated Side effects of treatment? @ -No Exacerbation, Progression, or Severe Exacerbation? @ -No Poses a threat to life or bodily function? How? (Chest pain, [place], [place], pneumonia, PE, COPD, DKA, ARF, appy, cholecystitis, CVA, Diverticulitis, Homicidal, Suicidal, threat to staff... and all critical care pts) @low risk at this time - Lab Data Result diagrams: 06/20/23 14:55 06/20/23 14:55 Lab Results 06/20/23 06/20/23 Range/Units 14:55 14:55 WBC 12.2 H (3.8-10.6) k/uL RBC 4.17 L (4.30-5.90) m/uL Hgb 7.7 L (13.0-17.5) gm/dL Hct 29.1 L (39.0-53.0) % MCV 69.7 L (80.0-100.0) fL MCH 18.5 L (25.0-35.0) pg MCHC 26.5 L (31.0-37.0) g/dL RDW 20.7 H (11.5-15.5) % Plt Count 260 (150-450) k/uL MPV 7.5 Neutrophils % 70 % Lymphocytes % 18 % Monocytes % 6 % Eosinophils % 2 % Basophils % 1 % Neutrophils # 8.5 H (1.3-7.7) k/uL Lymphocytes # 2.2 (1.0-4.8) k/uL Monocytes # 0.8 (0-1.0) k/uL Eosinophils # 0.2 (0-0.7) k/uL Basophils # 0.1 (0-0.2) k/uL Hypochromasia Marked Anisocytosis Moderate Microcytosis Marked Sodium 131 L (137-145) mmol/L Potassium 4.4 (3.5-5.1) mmol/L Chloride 104 (98-107) mmol/L Carbon Dioxide 16 L (22-30) mmol/L Anion Gap 11 mmol/L BUN 8 L (9-20) mg/dL Creatinine 0.50 L (0.66-1.25) mg/dL Est GFR (CKD-EPI)AfAm >90 (>60 ml/min/1.73 sqM) Est GFR (CKD-EPI)NonAf >90 (>60 ml/min/1.73 sqM) Glucose 108 H (74-99) mg/dL Calcium 7.8 L (8.4-10.2) mg/dL Magnesium 1.9 (1.6-2.3) mg/dL Total Bilirubin 0.6 (0.2-1.3) mg/dL AST 37 (17-59) U/L ALT 21 (4-49) U/L Alkaline Phosphatase 129 H (38-126) U/L Total Protein 6.5 (6.3-8.2) g/dL Albumin 3.0 L (3.5-5.0) g/dL Serum Alcohol <10 mg/dL Disposition Clinical Impression: Seizure Disposition: HOME SELF-CARE Condition: Fair Instructions (If sedation given, give patient instructions): Recurrent Seizures in Adults (ED) Is patient prescribed a controlled substance at d/c from ED?: No Referrals: Pina Bello MD [Primary Care Provider] - 1-2 days Josh Brody MD [REFERRING] - 1-2 days Time of Disposition: 15:50
[2023-06-20] MEDS: SODIUM CHLORIDE 0.9% 500 ML 500 ML IV STA (15:04)
[2023-06-20] MEDS: LORazepam 2 MG/ML INJ IV STA (15:05)
[2023-06-20 15:18] LABS: Anisocytosis Moderate; Basophils # (A) 0.1 k/uL (0-0.2); Basophils % (A) 1 %; Eosinophils # (A) 0.2 k/uL (0-0.7); Eosinophils % (A) 2 %; HCT 29.1 % (39.0-53.0); HGB 7.7 gm/dL (13.0-17.5); Hypochromasia Marked; Lymphocytes # (A) 2.2 k/uL (1.0-4.8); Lymphocytes % (A) 18 %; MCH 18.5 pg (25.0-35.0); MCHC 26.5 g/dL (31.0-37.0); MCV 69.7 fL (80.0-100.0); Mean Platelet Volume 7.5; Microcytosis Marked; Monocytes # (A) 0.8 k/uL (0-1.0); Monocytes % (A) 6 %; Neutrophils # (A) 8.5 k/uL (1.3-7.7); Neutrophils % (A) 70 %; Platelet Count 260 k/uL (150-450); RBC 4.17 m/uL (4.30-5.90); RDW 20.7 % (11.5-15.5); WBC 12.2 k/uL (3.8-10.6)
[2023-06-20 15:28] LABS: ALT 21 U/L (4-49); AST 37 U/L (17-59); African American GFR (CKD) >90 (>60 ml/min/1.73 sqM); Alcohol <10 mg/dL; Alkaline Phosphatase 129 U/L (38-126); Anion Gap 11 mmol/L; Blood Urea Nitrogen 8 mg/dL (9-20); Calcium 7.8 mg/dL (8.4-10.2); Carbon Dioxide 16 mmol/L (22-30); Chloride 104 mmol/L (98-107); Glucose 108 mg/dL (74-99); Magnesium 1.9 mg/dL (1.6-2.3); Non-African American GFR(CKD) >90 (>60 ml/min/1.73 sqM); Potassium 4.4 mmol/L (3.5-5.1); Sodium 131 mmol/L (137-145); Total Bilirubin 0.6 mg/dL (0.2-1.3); Total Protein 6.5 g/dL (6.3-8.2)
[2023-06-20 16:14] VITALS: BP 133/62; PULSE 70; RESP 18; TEMP 98
== END 2023-06-20 16:15 | disposition home or self-care (01) ==
LOC: EC 14:45
DX: G40.409 Other generalized epilepsy and epileptic syndromes, not intractable, without status epilepticus (principal); F17.200 Nicotine dependence, unspecified, uncomplicated; F12.90 Cannabis use, unspecified, uncomplicated
CPT/HCPCS: 36415; 93005; 80053; 83735; 85025; 99284; 96374; 96361; G0480; J2060; 80320

== ENCOUNTER 2024-01-01 18:17 | Emergency (ER) | payer MEDICARE, OTHER ==
[2024-01-01 18:23] VITALS: RESP 18; TEMP 98.3
--- NOTE | 2024-01-01 19:44 | ED ---
Weakness HPI - General Chief complaint: Syncope Stated complaint: Syncope,N/V Time Seen by Provider: 01/01/24 18:20 Source: EMS, RN notes reviewed, old records reviewed Mode of arrival: EMS Limitations: no limitations - History of Present Illness Initial comments: This is a 63-year-old male to the ER for evaluation patient presents today for evaluation regards to altered mental status weakness found down, does appear to be may be had a seizure from alcohol intoxication or may be intoxicated MD Complaint: generalized weakness, numbness, tingling -: unknown Location: generalized Severity: moderate Severity scale (1-10): 4 Consistency: constant Improves with: none Worsens with: none Context: recent illness Associated Symptoms: denies other symptoms - Related Data Home Medications Medication Instructions Recorded Confirmed Albuterol Inhaler [Ventolin Hfa 2 puff INHALATION RT-QID 03/09/23 03/09/23 Inhaler] Aspirin EC [Ecotrin Low Dose] 81 mg PO DAILY 03/09/23 03/09/23 Losartan [Cozaar] 25 mg PO DAILY 03/09/23 03/09/23 Metoprolol Tartrate [Lopressor] 100 mg PO BID 03/09/23 03/09/23 Omeprazole [PriLOSEC] 20 mg PO DAILY 03/09/23 03/09/23 Previous Rx's Medication Instructions Recorded Furosemide [Lasix] 40 mg PO DAILY #30 tab 03/09/22 Tamsulosin [Flomax] 0.4 mg PO PC-BRKFST #21 cap 03/09/22 Thiamine [Vitamin B-1] 100 mg PO DAILY #30 tab 03/09/22 levETIRAcetam [Keppra] 1,000 mg PO Q12HR #30 tab 07/31/22 Amoxic-Pot Clav 875-125Mg 1 tab PO BID 7 Days #14 tab 03/12/23 [Augmentin 875-125] Budesonide-Formot 160-4.5 Mcg 2 puff INHALATION BID #1 each 03/12/23 [Symbicort 160-4.5 Mcg Inhaler] Ipratropium-Albuterol Nebulize 3 ml INHALATION RT-QID #120 each 03/12/23 [Duoneb 0.5 mg-3 mg/3 ml Soln] Nicotine 14Mg/24Hr Patch [Habitrol] 1 patch TRANSDERM DAILY #30 patch 03/12/23 Allergies Allergy/AdvReac Type Severity Reaction Status Date / Time No Known Allergies Allergy Verified 01/01/24 18:23 Review of Systems ROS Statement: Those systems with pertinent positive or pertinent negative responses have been documented in the HPI. ROS Other: All systems not noted in ROS Statement are negative. Past Medical History Past Medical History: Hypertension, Seizure Disorder History of Any Multi-Drug Resistant Organisms: None Reported Additional Past Surgical History / Comment(s): Right leg fracture repair Past Anesthesia/Blood Transfusion Reactions: No Reported Reaction Past Psychological History: No Psychological Hx Reported Smoking Status: Current every day smoker Past Alcohol Use History: Daily Past Drug Use History: Marijuana - Past Family History Mother Family Medical History: Coronary Artery Disease (CAD) General Exam General appearance: alert, in no apparent distress Head exam: Present: atraumatic, normocephalic, normal inspection Eye exam: Present: normal appearance, PERRL, EOMI. Absent: scleral icterus, co njunctival injection, periorbital swelling ENT exam: Present: normal exam, mucous membranes moist Neck exam: Present: normal inspection. Absent: tenderness, meningismus, lymphadenopathy Respiratory exam: Present: normal lung sounds bilaterally. Absent: respiratory distress, wheezes, rales, rhonchi, stridor Cardiovascular Exam: Present: regular rate, normal rhythm, normal heart sounds. Absent: systolic murmur, diastolic murmur, rubs, gallop, clicks GI/Abdominal exam: Present: soft, normal bowel sounds. Absent: distended, tenderness, guarding, rebound, rigid Extremities exam: Present: normal inspection, full ROM, normal capillary refill. Absent: tenderness, pedal edema, joint swelling, calf tenderness Back exam: Present: normal inspection Neurological exam: Present: alert, oriented X3, CN II-XII intact Psychiatric exam: Present: normal affect, normal mood Skin exam: Present: warm, dry, intact, normal color. Absent: rash Course Vital Signs 01/01/24 01/01/24 18:20 21:57 Temperature 98.3 F Pulse Rate 72 100 Respiratory 18 18 Rate Blood Pressure 162/89 147/71 O2 Sat by Pulse 94 L 92 L Oximetry - Reevaluation(s) Reevaluation #1: 01/01/24 19:50 Medical records reviewed Reevaluation #2: 01/01/24 19:50 Patient symptoms improving Reevaluation #3: 01/01/24 20:39 Patient informed of results questions answered, he does feel improved Reevaluation #4: Was pt. sent in by a medical professional or institution (TERRA Back, COUNTERINTELLIGENCE/HUMINT SPECIALIST, urgent care, hospital, or detention...) When possible be specific @ -no Did you speak to anyone other than the patient for history (EMS, parent, family, police, friend...)? What history was obtained from this source @ -no Did you review nursing and triage notes (agree or disagree)? Why? @ -agree Are old charts reviewed (outside hosp., previous admission, EMS record, old EKG, old radiological studies, urgent care reports/EKG's, detention records)? Report findings @ -yes Differential Diagnosis (chest pain, altered mental status, abdominal pain women, abdominal pain men, vaginal bleeding, weakness, fever, dyspnea, syncope, headache, dizziness, GI bleed, back pain, seizure, CVA, palpatations, mental health, musculoskeletal)? @ -prior EKG interpreted by me (3pts min.). @ -yes X-rays interpreted by me (1pt min.). @ -no CT interpreted by me (1pt min.). @ -no U/S interpreted by me (1pt. min.). @ -no What testing was considered but not performed or refused? (CT, X-rays, U/S, labs)? Why? @ -none What meds were considered but not given or refused? Why? @ -none Did you discuss the management of the patient with other professionals (professionals i.e. TERRA Back, COUNTERINTELLIGENCE/HUMINT SPECIALIST, lab, RT, psych nurse, child welfare social worker, quality associate, teacher, credit products officer, rn case management)? Give summary @ -no Was smoking cessation discussed for >3mins.? @ -no Was critical care preformed (if so, how long)? @ -no Were there social determinants of health that impacted care today? How? (Homelessness, low income, unemployed, alcoholism, drug addiction, transportation, low edu. Level, literacy, decrease access to med. care, care home, rehab)? @ -none Was there de-escalation of care discussed even if they declined (Discuss DNR or withdrawal of care, Hospice)? DNR status @ -no What co-morbidities impacted this encounter? (DM, HTN, Smoking, COPD, CAD, Cancer, CVA, ARF, Chemo, Hep., AIDS, mental health diagnosis, sleep apnea, morbid obesity)? @ -none Was patient admitted / discharged? Hospital course, mention meds given and route, prescriptions, significant lab abnormalities, going to OR and other pertinent info. @ - 63 male to ER with fall questionable seizure activity found house patient will be discharged home normal normal testing here in the ED Discharge Undiagnosed new problem with uncertain prognosis? @ -no Drug Therapy requiring intensive monitoring for toxicity (Heparin, Nitro, Insulin, Cardizem)? @ -no Were any procedures done? @ -no Diagnosis/symptom? @ -Alcohol intoxication Acute, or Chronic, or Acute on Chronic? @ -Acute Uncomplicated (without systemic symptoms) or Complicated (systemic symptoms)? @ -Complicated Side effects of treatment? @ -no Exacerbation, Progression, or Severe Exacerbation? @ -exacerbation Poses a threat to life or bodily function? How? (Chest pain, [place], [place], pneumonia, PE, COPD, DKA, ARF, appy, cholecystitis, CVA, Diverticulitis, Homicidal, Suicidal, threat to staff... and all critical care pts) @ -yes intoxication Reevaluation #5: Differential Altered Mental Status: Hypoglycemia, DKA, hypercapnia, ETOH, overdose, CO poisoning, trauma, myxedema coma, HTN encephalopathy, infection, encephalitis, psychosis, intercranial hemorrhage, hepatic encephalopathy, meningitis, CVA, this is not meant to be an all-inclusive list Differential Seizure: Recurrent seizure disorder, febrile seizure, alcohol withdrawal, stimulants, meningitis, encephalitis, intercranial hemorrhage, intracranial tumor, stroke, eclampsia, thyrotoxicosis, hypocalcemia, hyponatremia, hypernatremia, hypomagnesemia, psychogenic, this is not meant to be an all-inclusive list. EKG Findings - EKG Comments: EKG Findings:: EKG is sinus 75 MN 157 QRS 125 QTc 422 - EKG Results: EKG: interpreted by [facility] Medical Decision Making - Medical Decision Making 63 male to ER with fall questionable seizure activity found house patient will be discharged home normal normal testing here in the ED - Lab Data Result diagrams: 01/01/24 19:53 01/01/24 19:53 Lab Results 11/05/24 11/05/24 11/05/24 Range/Units 19:53 19:53 19:53 WBC 11.9 H (3.8-10.6) k/uL RBC 4.10 L (4.30-5.90) m/uL Hgb 8.8 L (13.0-17.5) gm/dL Hct 30.7 L (39.0-53.0) % MCV 75.0 L (80.0-100.0) fL MCH 21.4 L (25.0-35.0) pg MCHC 28.5 L (31.0-37.0) g/dL RDW 18.9 H (11.5-15.5) % Plt Count 652 H (150-450) k/uL MPV 7.8 Neutrophils % 76 % Lymphocytes % 16 % Monocytes % 5 % Eosinophils % 1 % Basophils % 1 % Neutrophils # 9.0 H (1.3-7.7) k/uL Lymphocytes # 1.9 (1.0-4.8) k/uL Monocytes # 0.6 (0-1.0) k/uL Eosinophils # 0.1 (0-0.7) k/uL Basophils # 0.1 (0-0.2) k/uL Hypochromasia Marked Anisocytosis Slight Microcytosis Moderate Sodium 132 L (137-145) mmol/L Potassium 4.9 (3.5-5.1) mmol/L Chloride 104 (98-107) mmol/L Carbon Dioxide 23 (22-30) mmol/L Anion Gap 5 mmol/L BUN 10 (9-20) mg/dL Creatinine 0.66 (0.66-1.25) mg/dL Est GFR (CKD-EPI)AfAm >90 (>60 ml/min/1.73 sqM) Est GFR (CKD-EPI)NonAf >90 (>60 ml/min/1.73 sqM) Glucose 134 H (74-99) mg/dL Plasma Lactic Acid Graham 1.7 (0.7-2.0) mmol/L Calcium 8.4 (8.4-10.2) mg/dL Phosphorus 4.6 H (2.5-4.5) mg/dL Magnesium 1.8 (1.6-2.3) mg/dL Total Bilirubin 0.4 (0.2-1.3) mg/dL AST 30 (17-59) U/L ALT 17 (4-49) U/L Alkaline Phosphatase 150 H (38-126) U/L Creatine Kinase 32 L (55-170) U/L Total Protein 6.3 (6.3-8.2) g/dL Albumin 2.9 L (3.5-5.0) g/dL Lipase 56 (23-300) U/L Serum Alcohol <10 mg/dL - EKG Data -: EKG Interpreted by Me Disposition Clinical Impression: Vasovagal syncope, Seizure, Alcohol withdrawal Disposition: HOME SELF-CARE Condition: Fair Instructions (If sedation given, give patient instructions): Recurrent Seizures in Adults (ED) Is patient prescribed a controlled substance at d/c from ED?: No Referrals: Pina Bello MD [Primary Care Provider] - 1-2 days Time of Disposition: 21:00
[2024-01-01] MEDS: SODIUM CHLORIDE 0.9% 1,000 ML IV STA (19:52)
[2024-01-01 20:15] LABS: Anisocytosis Slight; Basophils # (A) 0.1 k/uL (0-0.2); Basophils % (A) 1 %; Eosinophils # (A) 0.1 k/uL (0-0.7); Eosinophils % (A) 1 %; HCT 30.7 % (39.0-53.0); HGB 8.8 gm/dL (13.0-17.5); Hypochromasia Marked; Lymphocytes # (A) 1.9 k/uL (1.0-4.8); Lymphocytes % (A) 16 %; MCH 21.4 pg (25.0-35.0); MCHC 28.5 g/dL (31.0-37.0); Mean Platelet Volume 7.8; Microcytosis Moderate; Monocytes # (A) 0.6 k/uL (0-1.0); Monocytes % (A) 5 %; Neutrophils % (A) 76 %; Platelet Count 652 k/uL (150-450); RDW 18.9 % (11.5-15.5); WBC 11.9 k/uL (3.8-10.6)
[2024-01-01 20:23] LABS: ALT 17 U/L (4-49); AST 30 U/L (17-59); African American GFR (CKD) >90 (>60 ml/min/1.73 sqM); Albumin 2.9 g/dL (3.5-5.0); Alcohol <10 mg/dL; Alkaline Phosphatase 150 U/L (38-126); Anion Gap 5 mmol/L; Blood Urea Nitrogen 10 mg/dL (9-20); Calcium 8.4 mg/dL (8.4-10.2); Carbon Dioxide 23 mmol/L (22-30); Chloride 104 mmol/L (98-107); Creatine Kinase 32 U/L (55-170); Glucose 134 mg/dL (74-99); Lipase 56 U/L (23-300); Magnesium 1.8 mg/dL (1.6-2.3); Non-African American GFR(CKD) >90 (>60 ml/min/1.73 sqM); Phosphorus 4.6 mg/dL (2.5-4.5); Potassium 4.9 mmol/L (3.5-5.1); Sodium 132 mmol/L (137-145); Total Bilirubin 0.4 mg/dL (0.2-1.3); Total Protein 6.3 g/dL (6.3-8.2)
[2024-01-01 21:59] VITALS: BP 147/71; PULSE 100
== END 2024-01-01 21:58 | disposition home or self-care (01) ==
LOC: EC 18:17
DX: R55 Syncope and collapse (principal); R56.9 Unspecified convulsions; F10.939 Alcohol use, unspecified with withdrawal, unspecified; F17.200 Nicotine dependence, unspecified, uncomplicated
CPT/HCPCS: 36415; 80053; 82550; 83605; 83690; 83735; 84100; 85025; 99284; G0480; 80320